=== PATIENT | female | born 1945 | race Caucasian/White ===

== ENCOUNTER 2020-03-03 13:20 | Emergency (ER) | payer MEDICARE, OTHER, SELFPAY ==
[2020-03-03 13:25] VITALS: BP 135/67; PULSE 91; RESP 14; TEMP 36.3; O2SAT 99
--- NOTE | 2020-03-03 13:32 | DI.RAD.S_ITS ---
PROCEDURE: XR LUMBAR SPINE 2-3V INDICATIONS: glf onto butt with lower back pain TECHNIQUE: 3 views of the lumbar spine were acquired. COMPARISON: None. FINDINGS: Bones: 5 [id number] vertebrae are present. There is minimal dextroconvex scoliotic curvature. No focal AP alignment abnormality is seen. No vertebral body compression fractures. No suspicious bony lesions. Partially bridging anterior osteophytes are seen at the L2-L3 level. The disc heights are relatively well preserved. Lower lumbar spine facet arthropathy is seen. Bilateral hip arthroplasty hardware is partially seen. Soft tissues: Overlying bowel gas pattern is normal. No suspicious soft tissue calcifications. Atherosclerotic calcification is noted. IMPRESSION: No acute abnormality can be seen by plain film. If there is point tenderness (or other clinical suspicion for a fracture not seen on these images) then a dedicated CT could be considered for further evaluation, as clinically appropriate. Dictated by: Jcarlos Angel M.D. on 03/03/2020 at 13:09 Approved by: Jcarlos Angel M.D. on 03/03/2020 at 13:10
[2020-03-03 19:25] VITALS: BP 120/68; BP 132/66; PULSE 96; O2SAT 100
[2020-03-03 19:30] VITALS: BP 130/68; PULSE 93; O2SAT 100
--- NOTE | 2020-03-03 19:30 | PC.NURSE ---
Pain in lumbar spine after fall backwards. denies any dizziness before fall, denies any loc. Able to urinate without difficult. denies numbness and tingling to bilateral lower extremities. requiring to use a walker at this time r/t to pain.
--- NOTE | 2020-03-03 19:46 | ED_ITS ---
HPI - Back Pain/Injury <ELIER Sibley - Last Filed: 03/03/20 20:39> General Chief Complaint: Back Pain/Injury Stated Complaint: Fell injured back today Time Seen by Provider: 03/03/20 19:24 Source: patient and family Mode of arrival: Ambulatory Limitations: no limitations History of Present Illness HPI Narrative: The patient is a 74-year-old female nonsmoker with history of hypertension, hyperlipidemia, pre diabetes who presents with a chief complaint of lower back pain after a fall today. She states that she was throwing things into the trash when she lost her balance and fell backward landing on her lower back. She denies hitting her head, any neck pain she denies any numbness or tingling in a new incontinence. She has not taken anything for pain. She has no provider in the area. She states she is ambulating with her walker per usual. Related Data Previous Rx's Medication Instructions Recorded cyclobenzaprine 10 mg PO TID PRN #20 tab 03/03/20 hydrocodone-acetaminophen [Lincoln] 1 tab PO Q4-6H PRN #14 tab 03/03/20 lidocaine 1 patch TOPICAL DAILY PRN #15 ea 03/03/20 Allergies Allergy/AdvReac Type Severity Reaction Status Date / Time dimenhydrinate Allergy Verified 03/03/20 13:26 [From Dramamine] Review of Systems <ELIER Sibley - Last Filed: 03/03/20 20:39> Review of Systems Narrative: GENERAL: Denies chills, fatigue, malaise, fever, sweats. HEENT: Denies sinus pain, ear pain, sore throat, difficulty swallowing, dizziness. RESPIRATORY: Denies dyspnea, cough, wheezing, hemoptysis, sputum. CARDIOVASCULAR: Denies chest pain, palpitations, orthopnea, edema, GASTROINTESTINAL: Denies nausea, vomiting, abdominal pain, diarrhea, constipation, melena. : Denies dysuria, frequency, incontinence, hematuria, urinary retention. MUSCULOSKELETAL: See HPI SKIN: Denies rash, skin lesions, or other NEUROLOGIC: Denies weakness, headache, numbness, change in speech, confusion, seizures, incoordination. PSYCHIATRIC: No concerning psychosocial issues. 12 point review of systems is negative except for those stated above Exam <ELIER Sibley - Last Filed: 03/03/20 20:39> Narrative Exam Narrative: GENERAL: This is a well-nourished, well-developed patient, in mild distress. HEAD: Atraumatic. Normocephalic. No temporal or scalp tenderness. EYES: Pupils equal round and reactive. Extraocular motions intact. No scleral icterus. No injection or drainage. ENT: Nose without bleeding, purulent drainage or septal hematoma. Airway patent. NECK: Trachea midline. No JVD or lymphadenopathy. Supple, nontender, no meningeal signs. CARDIOVASCULAR: Regular rate and rhythm RESPIRATORY: Clear to auscultation. Breath sounds equal bilaterally. No wheezes, rales, or rhonchi. No cough. No increased respiratory effort. No accessory muscle use GASTROINTESTINAL: Abdomen soft, non-tender, nondistended. No hepato- splenomegaly, or palpable masses. No guarding. Active bowel sounds all 4 quadrants EXTREMITIES: No clubbing, cyanosis, or edema. No joint tenderness, effusion, or edema noted. BACK: No pain to palpation of cervical or thoracic spine diffuse tenderness to palpation of lumbar spine as well as bilateral paraspinal muscles of lumbar spine. No palpable deformity or crepitance. No flank tenderness. NEURO: AOx3. Clear speech. No gross cranial nerve deficit. SKIN: No rash or erythema on visible skin. Initial Vital Signs Initial Vital Signs: Vital Signs Temperature 97.3 F L 03/03/20 13:25 Pulse Rate 91 H 03/03/20 13:25 Respiratory Rate 14 03/03/20 13:25 Blood Pressure 135/67 03/03/20 13:25 Pulse Oximetry 99 03/03/20 13:25 <Yonis Owens DO - Last Filed: 03/04/20 07:27> Initial Vital Signs Initial Vital Signs: Vital Signs Temperature 97.3 F L 03/03/20 13:25 Pulse Rate 91 H 03/03/20 13:25 Respiratory Rate 14 03/03/20 13:25 Blood Pressure 135/67 03/03/20 13:25 Pulse Oximetry 99 03/03/20 13:25 Scores <KOREY Sibley- - Last Filed: 03/03/20 20:39> GCS [place] coma scale eye opening: Spontaneous [place] coma scale verbal response: Orientated [place] coma scale motor response: Obey commands Brise[place] coma scale total score: 15 Nexus Score for C-Spine Focal Neurologic deficit present: No Midline spinal tenderness present: No Altered level of conciousness present: No Intoxication present: No Distracting Injury Present: No Nexus Criteria for C-spine: 0 Course <ELIER Sibley - Last Filed: 03/03/20 20:39> Orders Ordered: Discontinued Medications Hydrocodone Bitart/Acetaminophen (Hydrocodone/Acet 5/325 Tablet) 1 tab PO NOW ONE Stop: 03/03/20 19:46 Last Admin: 03/03/20 20:16 Dose: 1 tab Documented by: LISETTE Cyclobenzaprine HCl (Cyclobenzaprine 10 Mg Tablet) 10 mg PO NOW ONE Stop: 03/03/20 19:46 Last Admin: 03/03/20 20:37 Dose: Not Given Documented by: FELIZ Lidocaine (Lidocaine Patch 1 Each Adh..Patch) 1 each TOP NOW ONE Stop: 03/03/20 19:46 Last Admin: 03/03/20 20:16 Dose: 1 each Documented by: LISETTE Vital Signs Vital signs: Vital Signs - 8 hr 03/03/20 13:25 03/03/20 19:25 03/03/20 19:30 Temperature 97.3 F L Pulse Rate 91 H 96 H 93 H Respiratory Rate 14 Blood Pressure 135/67 132/66 130/68 Pulse Oximetry 99 100 100 03/03/20 20:00 03/03/20 20:27 Temperature Pulse Rate 90 92 H Respiratory Rate Blood Pressure 127/63 120/64 Pulse Oximetry 98 100 <Yonis Owens DO - Last Filed: 03/04/20 07:27> Orders Ordered: Discontinued Medications Hydrocodone Bitart/Acetaminophen (Hydrocodone/Acet 5/325 Tablet) 1 tab PO NOW ONE Stop: 03/03/20 19:46 Last Admin: 03/03/20 20:16 Dose: 1 tab Documented by: LISETTE Cyclobenzaprine HCl (Cyclobenzaprine 10 Mg Tablet) 10 mg PO NOW ONE Stop: 03/03/20 19:46 Last Admin: 03/03/20 20:37 Dose: Not Given Documented by: FELIZ Lidocaine (Lidocaine Patch 1 Each Adh..Patch) 1 each TOP NOW ONE Stop: 03/03/20 19:46 Last Admin: 03/03/20 20:16 Dose: 1 each Documented by: RACHELEN Vital Signs Vital signs: Vital Signs - 8 hr 03/03/20 13:25 03/03/20 19:25 03/03/20 19:30 Temperature 97.3 F L Pulse Rate 91 H 96 H 93 H Respiratory Rate 14 Blood Pressure 135/67 132/66 130/68 Pulse Oximetry 99 100 100 03/03/20 20:00 03/03/20 20:27 Temperature Pulse Rate 90 92 H Respiratory Rate Blood Pressure 127/63 120/64 Pulse Oximetry 98 100 [facility] - Back Pain/Injury <KOREY Sibley- - Last Filed: 03/03/20 20:39> Imaging Data Lumbar spine x-ray: Radiologist's Impression: [facility] [place] [id number] ReportSigned Patient: Randy Foley#: [id number]: 6Acct:[id number]/Sex: 74 / FDate of Service: 03/03/20Loc: EDAccession Number: [id number] Procedure: XR lumbar spine 2-3V Ordering Provider: Corin Parks D.O. PROCEDURE: XR LUMBAR SPINE 2-3V INDICATIONS: glf onto butt with lower back pain TECHNIQUE: 3 views of the lumbar spine were acquired. COMPARISON: None. FINDINGS: Bones: 5 [id number] vertebrae are present. There is minimal dextroconvex scoliotic curvature. No focal AP alignment abnormality is seen. No vertebral body compression fractures. No suspicious bony lesions. Partially bridging anterior osteophytes are seen at the L2-L3 level. The disc heights are relatively well preserved. Lower lumbar spine facet arthropathy is seen. Bilateral hip arthroplasty hardware is partially seen. Soft tissues: Overlying bowel gas pattern is normal. No suspicious soft tissue calcifications. Atherosclerotic calcification is noted. IMPRESSION: No acute abnormality can be seen by plain film. If there is point tenderness (or other clinical suspicion for a fracture not seen on these images) then a dedicated CT could be considered for further evaluation, as clinically appropriate. Dictated by: Jcarlos Angel M.D. on 03/03/2020 at 13:09 Approved by: Jcarlos Angel M.D. on 03/03/2020 at 13:10 [facility] Narrative Medical decision making narrative: The patient is a 74-year-old female who presents with a chief complaint of lower back pain after a fall. She states she lost her balance, is not exactly sure why she lost her balance, but does not want me to look into that today. I discussed that we can do further lab work, head CT, EKG etcetera, but this was declined. I discussed this repeatedly, the patient and her daughter repeatedly declined.. They believe that she just lost She states she would only like pain medication to go home. Her x-ray is no acute findings. She denies any red flag symptoms of new incontinence of bowel, incontinence of bladder, or saddle anesthesia. I discussed at length that these are return precautions. She was given lidocaine patch, cyclobenzaprine and Lincoln. Discussed that cyclobenzaprine can be sedating, Lincoln can be constipat ing and sedating. I did discuss at length the patient that we could be missing something that could eventually the lethal, however they request to leave multiple times. I did give her several prescriptions as well as contact information to the [facility] health water resource consultant. Patient daughter no questions or concerns upon discharge and state understanding of return precautions as well as follow-up care. Discharge Plan Departure Patient Disposition: Home Clinical Impression: Lumbar back pain, Fall from ground level Instructions: Exercises to Help Prevent Falls, DI for Low Back Pain, DI for Back Spasm, DI for Back Strain or Sprain Activity Restrictions/Additional Instructions: Thank you for trusting us with your care today. As I discussed, your x-ray shows no acute fracture. This does not rule out a soft tissue injury such as a ligament or tendon injury. It is important that you follow up with primary care provider, especially if worsening or no improvement. There can be fractures that did not show up on initial x-ray. As discussed, you declined further workup regarding her fall today. As discussed, we could be missing something that could eventually be lethal. However we are happy to see you in the emergency department at any point for any acute concerns. As discussed please come back to the ER for acute concerns such as new onset numbness in her groin, incontinence of bowel, incontinence of bladder I sent 3 prescriptions to [facility] this includes cyclobenzaprine which can be sedating, as well as Lincoln which is a narcotic pain medicine I have given you a prescription of a narcotic for pain. Be aware that this can be constipating and sedating. I encouraged taking with a stool softener, pushing fluids and fiber. Do not take and drive, operate heavy machinery, etc. Do not combine it with any other sedating substances such as alcohol. The combination of narcotics and alcohol and/or other sedatives can be lethal. As discussed, please come back to the emergency department for any acute concerns Prescriptions: New hydrocodone-acetaminophen [Lincoln] 5-325 mg tablet 1 tab PO Q4-6H PRN (Reason: pain) Qty: 14 RF: 0 cyclobenzaprine 10 mg tablet 10 mg PO TID PRN (Reason: muscle spasm) Qty: 20 RF: 0 lidocaine 5 % adhesive patch,medicated 1 patch topical DAILY PRN (Reason: pain) Qty: 15 RF: 0 Referrals: [facility] [Outside] <Yonis Owens DO - Last Filed: 03/04/20 07:27> [facility] ED [facility]: I was immediately available in the department for consultation. This documentation has been reviewed and I agree with assessment and plan. Supervised by Yonis Owens DO
[2020-03-03 20:00] VITALS: BP 127/63; PULSE 90; O2SAT 98
[2020-03-03] MEDS: HYDROCODONE/ACET 5/325 TABLET 1 TAB PO (20:16)
[2020-03-03] MEDS: LIDOCAINE PATCH 1 EACH ADH..PATCH TOP (20:16)
[2020-03-03 20:27] VITALS: BP 120/64; PULSE 92; O2SAT 100
== END 2020-03-03 20:37 | disposition home or self-care (01) ==
PROVIDERS: Emergency Provider Nurse Practitioner Family
DX: M54.5 Low back pain (principal); W19.XXXA Unspecified fall, initial encounter
CPT/HCPCS: 72100; 99281; 99283

== ENCOUNTER 2020-05-25 00:02 | Inpatient (IN) | payer MEDICARE, OTHER, SELFPAY ==
[2020-05-25] VITALS (28 sets, daily range): BP systolic 121–163; BP diastolic 57–98; PULSE 87–126; RESP 10–24; TEMP 36.3–36.8; O2SAT 97–100; BMI 28.1; BMI 23.3
--- NOTE | 2020-05-25 00:14 | ED.GENADULT ---
HPI - General Adult General Chief complaint: Chest Pain Stated complaint: chest pain/vomiting/pain down left arm Time Seen by Provider: 05/25/20 00:13 History of Present Illness HPI narrative: 74-year-old woman with a history of [place] without stent placement in 2019 developed increasing chest pain around 430 this afternoon. Her son gave her some nitroglycerin which seem to help significantly. Over the course of the evening the chest pain has increased and includes her left chest radiating through to her back increasing diaphoresis shortness of breath and anxiety. She denies fevers, cough, orthopnea, abdominal pain, lower extremity edema Related Data Home Medications Medication Instructions Recorded Confirmed aspirin 81 mg PO BID 05/25/20 05/25/20 atorvastatin 40 mg PO BEDTIME 05/25/20 05/25/20 cholecalciferol (vitamin D3) 25 mcg PO BID 05/25/20 05/25/20 clopidogrel 75 mg PO DAILY 05/25/20 05/25/20 colestipol 1 g PO BID 05/25/20 05/25/20 digoxin 125 mcg PO DAILY 05/25/20 05/25/20 docusate sodium 100 mg PO DAILY 05/25/20 05/25/20 escitalopram oxalate 10 mg PO DAILY 05/25/20 05/25/20 lisinopril 5 mg PO BID 05/25/20 05/25/20 metformin 500 mg PO BID 05/25/20 05/25/20 metoprolol tartrate 100 mg PO BID 05/25/20 05/25/20 potassium chloride 10 meq PO DAILY 05/25/20 05/25/20 spironolactone 12.5 mg PO DAILY 05/25/20 05/25/20 torsemide 20 mg PO BID 05/25/20 05/25/20 Previous Rx's Medication Instructions Recorded ciprofloxacin HCl 250 mg PO BID #6 tab 05/25/20 pantoprazole 40 mg PO DAILY #30 tab 05/25/20 Allergies Allergy/AdvReac Type Severity Reaction Status Date / Time dimenhydrinate Allergy Verified 03/03/20 13:26 [From Dramamine] Review of Systems Review of Systems ROS Unobtainable: All systems reviewed & are unremarkable except as noted in HPI and below Patient History Medical History (Updated 05/25/20 @ 17:36 by Dereje Martinez MD) CHF (congestive heart failure) Diabetes mellitus type 2 in obese Hyperlipidemia Hypertension Myocardial infarction Plaque psoriasis Surgical History (Updated 05/25/20 @ 05:14 by ELIER Hernandez) History of appendectomy History of bilateral hip replacements History of cholecystectomy History of left knee surgery History of surgery on right wrist Family History (Updated 05/25/20 @ 05:59 by ELIER Hernandez) Mother Congestive heart failure Brother Congestive heart failure Social History household members: family Smoking Status: Never smoker alcohol intake: never Exam Narrative Exam Narrative: General: Pale, diaphoretic in obvious pain. Son supplements most for history as she is unable to participate secondary to her pain. Well-nourished well-developed HEENT: Moist mucous membranes, normal sclera with reactive pupils, Neck: No JVD, supple Respiratory: Lungs are clear to auscultation, no wheezing no rales no rhonchi. Full and symmetrical air movement Cardiac: Tachycardic but Regular rate and rhythm no murmurs no bruits Abdomen: Soft, nontender, good bowel tones, no flank pain Skin: Pale, diaphoretic, no rashes Neurologic: Grossly neurologically intact with no obvious asymmetries or abnormalities Extremities: No trauma, well perfused Psych: Anxious, in pain Initial Vital Signs Initial Vital Signs: Vital Signs Temperature 97.4 F L 05/25/20 00:14 Pulse Rate 125 H 05/25/20 00:14 Respiratory Rate 17 05/25/20 00:14 Blood Pressure 139/98 H 05/25/20 00:14 Pulse Oximetry 100 05/25/20 00:14 Course Orders Ordered: Discontinued Medications Acetaminophen (Acetaminophen 325 Mg Tablet) 650 mg PO Q4HR PRN PRN Reason: Fever/Mild Pain (1-3) Last Admin: 05/25/20 13:40 Dose: 650 mg Documented by: RYANFARAna Luisa Aspirin (Aspirin 81 Mg Chew Tab) 324 mg PO NOW ONE Stop: 05/25/20 00:15 Last Admin: 05/25/20 00:24 Dose: 324 mg Documented by: LISETTE Aspirin (Aspirin 81 Mg Chew Tab) 81 mg PO BID [facility] Last Admin: 05/25/20 09:21 Dose: 81 mg Documented by: RYANFARL Atorvastatin Calcium (Atorvastatin 20 Mg Tablet) 40 mg PO BEDTIME [facility] Bisacodyl (Bisacodyl 5 Mg Tablet) 10 mg PO DAILY PRN PRN Reason: Constipation Clopidogrel Bisulfate (Clopidogrel 75 Mg Tablet) 75 mg PO DAILY [facility] [place] Last Admin: 05/25/20 09:21 Dose: 75 mg Documented by: CMCFARL Colestipol HCl (Colestipol 1 Gm Tablet) 1 gm PO BID [facility] [place] Last Admin: 05/25/20 09:22 Dose: 1 gm Documented by: CMCFARL Digoxin (Digoxin 0.125 Mg Tablet) 0.125 mg PO DAILY [facility] [place] Last Admin: 05/25/20 09:20 Dose: 0.125 mg Documented by: CMCFARL Docusate Sodium (Docusate 100 Mg Capsule) 100 mg PO BID PRN PRN Reason: Constipation Docusate Sodium (Docusate 100 Mg Capsule) 100 mg PO DAILY [facility] [place] Last Admin: 05/25/20 09:21 Dose: 100 mg Documented by: CMCFARL Sodium Chloride (Normal Saline 0.9%) 1,000 mls @ 1,000 mls/hr IV BOLUS ONE Stop: 05/25/20 01:13 Last Infusion: 05/25/20 02:14 Dose: 0 mls/hr Documented by: Admin: 05/25/20 00:24 Dose: 1,000 mls/hr Documented by: LISETTE Ceftriaxone Sodium/Dextrose (Rocephin) 2 gm in 50 mls @ 100 mls/hr IV NOW ONE Stop: 05/25/20 03:42 Last Infusion: 05/25/20 04:19 Dose: 0 mls/hr Documented by: Admin: 05/25/20 03:34 Dose: 100 mls/hr Documented by: KAYKAYRASS Sodium Chloride (Normal Saline 0.9%) 1,000 mls @ 1,000 mls/hr IV BOLUS ONE Stop: 05/25/20 04:12 Last Infusion: 05/25/20 04:20 Dose: 1,000 mls/hr Documented by: Admin: 05/25/20 03:34 Dose: 1,000 mls/hr Documented by: ESJUANRASS Sodium Chloride (Normal Saline 0.9%) 1,000 mls @ 100 mls/hr IV CONT [facility] [place] Last Admin: 05/25/20 04:30 Dose: Not Given Documented by: LOU Ceftriaxone Sodium/Dextrose (Rocephin) 1 gm in 50 mls @ 100 mls/hr IV Q24H [facility] [place] Last Infusion: 05/25/20 13:09 Dose: 0 mls/hr Documented by: Admin: 05/25/20 09:22 Dose: 100 mls/hr Documented by: JANNETH Metoprolol Tartrate (Metoprolol Tartrate 5 Mg/5 Ml Inj) 5 mg IV Q5M [facility] Stop: 05/25/20 00:41 Last Admin: 05/25/20 02:07 Dose: Not Given Documented by: Admin: 05/25/20 02:06 Dose: Not Given Documented by: Admin: 05/25/20 00:43 Dose: 5 mg Documented by: KAMI Metoprolol Tartrate (Metoprolol Ir 50 Mg Tablet) 100 mg PO BID [facility] [place] Last Admin: 05/25/20 09:21 Dose: 100 mg Documented by: JANNETH Morphine Sulfate (Morphine 2 Mg/Ml Inj) 2 mg IV Q5MIN PRN PRN Reason: Chest Pain Morphine Sulfate (Morphine 2 Mg/Ml Inj) 2 mg IV Q5MIN PRN PRN Reason: Chest Pain Naloxone HCl (Naloxone 0.4 Mg/Ml Vial) 0.2 mg IV Q2MIN PRN PRN Reason: Opiate Reversal Nitroglycerin (Nitroglycerin 0.4 Mg Sl Tab) 0.4 mg SL [id number] PRN PRN Reason: Chest Pain Last Admin: 05/25/20 00:33 Dose: 0.4 mg Documented by: Admin: 05/25/20 00:25 Dose: 0.4 mg Documented by: LISETTE Nitroglycerin (Nitroglycerin 0.4 Mg Sl Tab) 0.4 mg SL [id number] PRN PRN Reason: Chest Pain Ondansetron HCl (Ondansetron 4 Mg/2 Ml Inj) 4 mg IV NOW ONE Stop: 05/25/20 00:15 Last Admin: 05/25/20 00:24 Dose: 4 mg Documented by: LISETTE Ondansetron HCl (Ondansetron 4 Mg Odt) 4 mg PO Q8HR PRN PRN Reason: Nausea And Vomiting Spironolactone (Spironolactone 25 Mg Tablet) 12.5 mg PO DAILY [facility] Last Admin: 05/25/20 09:21 Dose: 12.5 mg Documented by: JANNETH Torsemide (Torsemide 10 Mg Tablet) 20 mg PO BID [facility] [place] Last Admin: 05/25/20 09:22 Dose: 20 mg Documented by: JANNETH Vital Signs Vital signs: Vital Signs - 8 hr 05/25/20 00:14 05/25/20 00:25 05/25/20 00:33 Temperature 97.4 F L Pulse Rate 125 H 106 H 126 H Respiratory Rate 17 Blood Pressure 139/98 H 139/90 142/72 H Pulse Oximetry 100 05/25/20 00:58 05/25/20 01:00 05/25/20 01:30 Temperature Pulse Rate 87 89 94 H Respiratory Rate 15 18 18 Blood Pressure 143/71 H Pulse Oximetry 99 97 99 05/25/20 02:00 05/25/20 02:30 05/25/20 03:00 Temperature Pulse Rate 91 H 95 H 103 H Respiratory Rate 19 19 20 Blood Pressure Pulse Oximetry 100 100 100 Medical Decision Making Medical Records Medical records reviewed: Yes I reviewed the patient's medical records. Lab Data Lab results reviewed: Yes I reviewed the patient's lab results. Result diagrams: 05/25/20 05:46 05/25/20 05:46 Labs: Lab Results 05/25/20 05/25/20 05/25/20 Range/Units 00:25 00:25 00:25 WBC 6.8 (4.5-11.0) X10^3/uL RBC 4.55 (4.0-5.2) X10^6/uL Hgb 11.5 L (12.0-16.0) g/dL Hct 36.1 (36-46) % MCV 79.5 L (80-100) fL MCH 25.2 L (26-34) PG MCHC 31.7 (30-36) % RDW 18.3 H (11.6-14.8) % Plt Count 296 (150-400) X10^3/uL Neut % (Auto) 66.1 (50-75) % Lymph % (Auto) 20.5 L (25-40) % [place] % (Auto) 10.5 (3-14) % Eos % (Auto) 2.2 (2-4) % Baso % (Auto) 0.7 (0-2) % Neut # (Auto) 4500 (7271-3080) /uL Lymph # (Auto) 1400 (1021-0052) /uL [place] # (Auto) 700 (0-900) /uL Eos # (Auto) 200 (0-450) /uL Baso # (Auto) 0 (0-100) /uL Sodium 135 L (137-145) mmol/L Potassium 5.2 H (3.4-5.1) mmol/L Chloride 99 (98-107) mmol/L Carbon Dioxide 30 (22-32) mmol/L BUN 30 H (7-17) mg/dL Creatinine 1.55 H (0.52-1.04) mg/dL Estimated GFR 32.7 L (>60) mL/min BUN/Creatinine Ratio 19.4 (6-22) Glucose 218 H (80-110) mg/dL Lactate 2.8 H (0.7-2.1) mmol/L Calcium 9.8 (8.4-10.2) mg/dL Phosphorus (2.8-4.1) mg/dL Magnesium 1.9 (1.6-2.3) mg/dL Total Bilirubin 0.2 (0.2-1.3) mg/dL AST 23 (14-36) IU/L ALT 14 (<35) IU/L Alkaline Phosphatase 175 H (38-126) U/L Troponin I 0.012 (0.01-0.034) ng/mL Total Protein 7.4 (6.3-8.2) g/dL Albumin 4.0 (3.5-5.0) g/dL Globulin 3.4 (1.7-4.1) g/dL Albumin/Globulin Ratio 1.2 (1.0-2.8) Lipase 649 H (23-300) U/L Procalcitonin (<0.5) ng/mL Urine RBC (0-5/HPF) Urine WBC (0-5/HPF) Ur Squamous Epith Cells (0-5/HPF) Urine Bacteria (None) Ur Culture Indicated? SARS-CoV-2 (PCR) (Negative) 05/25/20 05/25/20 05/25/20 Range/Units 00:25 00:25 02:20 WBC (4.5-11.0) X10^3/uL RBC (4.0-5.2) X10^6/uL Hgb (12.0-16.0) g/dL Hct (36-46) % MCV (80-100) fL MCH (26-34) PG MCHC (30-36) % RDW (11.6-14.8) % Plt Count (150-400) X10^3/uL Neut % (Auto) (50-75) % Lymph % (Auto) (25-40) % [place] % (Auto) (3-14) % Eos % (Auto) (2-4) % Baso % (Auto) (0-2) % Neut # (Auto) (6841-5418) /uL Lymph # (Auto) (4919-7325) /uL [place] # (Auto) (0-900) /uL Eos # (Auto) (0-450) /uL Baso # (Auto) (0-100) /uL Sodium (137-145) mmol/L Potassium (3.4-5.1) mmol/L Chloride (98-107) mmol/L Carbon Dioxide (22-32) mmol/L BUN (7-17) mg/dL Creatinine (0.52-1.04) mg/dL Estimated GFR (>60) mL/min BUN/Creatinine Ratio (6-22) Glucose (80-110) mg/dL Lactate (0.7-2.1) mmol/L Calcium (8.4-10.2) mg/dL Phosphorus 3.7 (2.8-4.1) mg/dL Magnesium Cancelled (1.6-2.3) mg/dL Total Bilirubin (0.2-1.3) mg/dL AST (14-36) IU/L ALT (<35) IU/L Alkaline Phosphatase (38-126) U/L Troponin I (0.01-0.034) ng/mL Total Protein (6.3-8.2) g/dL Albumin (3.5-5.0) g/dL Globulin (1.7-4.1) g/dL Albumin/Globulin Ratio (1.0-2.8) Lipase (23-300) U/L Procalcitonin < 0.05 (<0.5) ng/mL Urine RBC None seen (0-5/HPF) Urine WBC 10-30/hpf H (0-5/HPF) Ur Squamous Epith Cells 0-1 /hpf (0-5/HPF) Urine Bacteria Many (>30) H (None) Ur Culture Indicated? Specimen cultured SARS-CoV-2 (PCR) (Negative) 05/25/20 05/25/20 05/25/20 Range/Units 02:32 02:32 03:20 WBC (4.5-11.0) X10^3/uL RBC (4.0-5.2) X10^6/uL Hgb (12.0-16.0) g/dL Hct (36-46) % MCV (80-100) fL MCH (26-34) PG MCHC (30-36) % RDW (11.6-14.8) % Plt Count (150-400) X10^3/uL Neut % (Auto) (50-75) % Lymph % (Auto) (25-40) % [place] % (Auto) (3-14) % Eos % (Auto) (2-4) % Baso % (Auto) (0-2) % Neut # (Auto) (1893-6610) /uL Lymph # (Auto) (3689-8330) /uL [place] # (Auto) (0-900) /uL Eos # (Auto) (0-450) /uL Baso # (Auto) (0-100) /uL Sodium (137-145) mmol/L Potassium (3.4-5.1) mmol/L Chloride (98-107) mmol/L Carbon Dioxide (22-32) mmol/L BUN (7-17) mg/dL Creatinine (0.52-1.04) mg/dL Estimated GFR (>60) mL/min BUN/Creatinine Ratio (6-22) Glucose (80-110) mg/dL Lactate 2.2 H (0.7-2.1) mmol/L Calcium (8.4-10.2) mg/dL Phosphorus (2.8-4.1) mg/dL Magnesium (1.6-2.3) mg/dL Total Bilirubin (0.2-1.3) mg/dL AST (14-36) IU/L ALT (<35) IU/L Alkaline Phosphatase (38-126) U/L Troponin I 0.020 (0.01-0.034) ng/mL Total Protein (6.3-8.2) g/dL Albumin (3.5-5.0) g/dL Globulin (1.7-4.1) g/dL Albumin/Globulin Ratio (1.0-2.8) Lipase (23-300) U/L Procalcitonin (<0.5) ng/mL Urine RBC (0-5/HPF) Urine WBC (0-5/HPF) Ur Squamous Epith Cells (0-5/HPF) Urine Bacteria (None) Ur Culture Indicated? SARS-CoV-2 (PCR) Negative (Negative) Urine Dip Bedside Urine Glucose Negative Bedside Urine Bilirubin - Negative Bedside Urine Ketone - Negative Urine Specific [place] 1.015 Bedside Urine Occult Blood +/- Bedside Urine pH 8.0 Bedside Urine Protein - Negative Bedside Urine Urobilinogen - Negative Bedside Urine Nitrite + Positive Bedside Urine Leukocytes +++ 500 Esterase Point of care testing: Urine Dip Bedside Urine Glucose Negative Bedside Urine Bilirubin - Negative Bedside Urine Ketone - Negative Urine Specific [place] 1.015 Bedside Urine Occult Blood +/- Bedside Urine pH 8.0 Bedside Urine Protein - Negative Bedside Urine Urobilinogen - Negative Bedside Urine Nitrite + Positive Bedside Urine Leukocytes +++ 500 Esterase Imaging Data Chest x-ray: Radiologist's Impression: No acute finding Lukas Guerra MD ECG Data Attestation: I personally reviewed and interpreted this ECG as follows: Interpretation: Sinus rhythm at 123 Poor baseline due to pain in underlying tremor Left axis deviation Lateral mild ST depression without any ST elevation Repeat 1:41 am pain free Sinus rhythm at 91 Slight left axis deviation Normal intervals Lateral ST- T wave changes similar to presentation without any progression MDM Narrative Medical decision making narrative: Medical history in reports of myocardial infarction in 2019 not currently on medications and reportedly no interventions at that time. Increasing left-sided chest pain over the course of today. Her son notes that she has also been complaining of increasing reflux type symptoms today. She has partially responded to nitro and tachycardia has responded nicely to single dose of IV metoprolol. As labs returning white count is unremarkable. I mild hyperkalemia at 5.2 slightly elevated creatinine without comparison elevated blood glucose at 218 (no history of diabetes) Lactic acid at 2.8 without any obvious infectious source. Lipase is elevated at 649. Developing pancreatitis could certainly explain the pain that is been worsening over the course of the day. Patient is re-examined. Chest pain has resolved. No specific abdominal pain. However EKG and troponin do not suggest an acute coronary syndrome at this time. Chest x-ray is equally unremarkable. CT scan of the abdomen is ordered. 1:42am CT does not suggest acute pancreatitis. Will plan on repeating troponin at 2hours and EKG now that her pain is better controlled and the baseline tremor is minimize 315am patient is re-examined. Chest pain has resolved and she has no specific abdominal pain however she continues to be tachycardic, her lactate was elevated at 2.8 and is only come down to 2.2. I still do not have a full explanation for the elevated lipase. There are also a myriad of other small abnormalities that with any single issue would not be particularly troublesome, but the fact that there are multiple, including mild hyperkalemia, mild elevated creatinine, mildly elevated glucose without a diagnosis of diabetes. At this time I do not have a consolidating diagnosis and my recommendation will be to admit her to the hospital for further observation. She also has what appears to be a bladder infection based on microscopic urinalysis. She will be given 2 g of IV ceftriaxone for community-acquired urinary tract infection and another L of fluid given the still slightly elevated lactic acid. Findings are reviewed with patient and she is amenable to staying in the hospital at this time. Care is reviewed with Ms Tavera, hospitalist LEENA and she agrees to accept admission. Discharge Plan Departure Patient Disposition: Admitted as Observation Clinical Impression: Acute UTI, Acute renal insufficiency, Acute hyperkalemia Chest pain Qualifiers: Chest pain type: unspecified Qualified Code(s): R07.9 - Chest pain, unspecified Acute pancreatitis Qualifiers: Pancreatitis type: unspecified pancreatitis type Acute pancreatitis complication: unspecified Qualified Code(s): K85.90 - Acute pancreatitis without necrosis or infection, unspecified Admit Date/Time: 05/25/20 03:39 Admit Provider: Marleen Tavera
--- NOTE | 2020-05-25 00:15 | DI.RAD.S_ITS ---
PROCEDURE: XR CHEST 1V INDICATIONS: chest pain TECHNIQUE: One view of the chest was acquired. COMPARISON: None. FINDINGS: Surgical changes and devices: None. Lungs and pleura: Lungs are clear. No pleural effusions or pneumothorax. Mediastinum: Mediastinal contours appear normal. Heart size is normal. Mild aortic atherosclerotic calcifications are present. Bones and chest wall: No suspicious bony lesions. Overlying soft tissues appear unremarkable. IMPRESSION: No acute cardiopulmonary abnormality. Dictated by: Taiwo Bustillos M.D. on 05/25/2020 at 8:20 Approved by: Taiwo Bustillos M.D. on 05/25/2020 at 8:20
[2020-05-25] MEDS: SODIUM CHLORIDE 0.9% 1,000 ML 1000 ML IV ×2 (00:24→03:34)
[2020-05-25] MEDS: ASPIRIN 81 MG CHEW TAB 324 MG PO (00:24)
[2020-05-25] MEDS: ONDANSETRON 4 MG/2 ML INJ IV (00:24)
[2020-05-25] MEDS: NITROGLYCERIN 0.4 MG SL TAB SL ×2 (00:25→00:33)
[2020-05-25 00:37] LABS: Add Manual Diff / Slide Review NO; Basophils Absolute Auto 0 /uL (0-100); Basophils Percent Auto 0.7 % (0-2); Eosinophils Absolute Auto 200 /uL (0-450); Eosinophils Percent Auto 2.2 % (2-4); Hematocrit 36.1 % (36-46); Hemoglobin 11.5 g/dL (12.0-16.0); Lymphocytes Absolute Auto 1400 /uL (1100-4500); Lymphocytes Percent Auto 20.5 % (25-40); Mean Corpuscular HGB Conc 31.7 % (30-36); Mean Corpuscular Hemoglobin 25.2 PG (26-34); Mean Corpuscular Volume 79.5 fL (80-100); Monocytes Absolute Auto 700 /uL (0-900); Monocytes Percent Auto 10.5 % (3-14); Neutrophils Absolute Auto 4500 /uL (1500-7000); Neutrophils Percent Auto 66.1 % (50-75); Platelet Count 296 X10^3/uL (150-400); Red Blood Cell Count 4.55 X10^6/uL (4.0-5.2); Red Cell Distribution Width 18.3 % (11.6-14.8); White Blood Cell Count 6.8 X10^3/uL (4.5-11.0)
[2020-05-25 00:43] LABS: Alanine Aminotransferase 14 IU/L (<35); Albumin Globulin Ratio 1.2 (1.0-2.8); Alkaline Phosphatase 175 U/L (38-126); Aspartate Aminotransferase 23 IU/L (14-36); BUN Creatinine Ratio 19.4 (6-22); Bilirubin Total 0.2 mg/dL (0.2-1.3); Blood Urea Nitrogen 30 mg/dL (7-17); Calcium 9.8 mg/dL (8.4-10.2); Carbon Dioxide 30 mmol/L (22-32); Chloride 99 mmol/L (98-107); Estimated Glomerular Filt Rate 32.7 mL/min (>60); Globulin 3.4 g/dL (1.7-4.1); Glucose 218 mg/dL (80-110); HEMOLYSIS < 15 (0-50); Lipase 649 U/L (23-300); Magnesium 1.9 mg/dL (1.6-2.3); Sodium 135 mmol/L (137-145); Total Protein 7.4 g/dL (6.3-8.2)
[2020-05-25] MEDS: METOPROLOL TARTRATE 5 MG/5 ML INJ IV (00:43)
[2020-05-25 00:45] LABS: Potassium 5.2 mmol/L (3.4-5.1)
--- NOTE | 2020-05-25 00:50 | DI.CT.S_ITS ---
PROCEDURE: CT ABDOMEN PELVIS W CON INDICATIONS: chest pain, possible pancreatitis TECHNIQUE: After the administration of intravenous contrast, 5 mm thick sections acquired from the diaphragm to the symphysis. 5 mm coronal and sagittal reformats were acquired. For radiation dose reduction, the following was used: automated exposure control, adjustment of mA and/or kV according to patient size. COMPARISON: None. FINDINGS: Image quality: Excellent. ABDOMEN: Lung bases: Lung bases are clear. Heart size is normal. Solid organs: Liver is normal in size and enhancement. Gallbladder is surgically absent. Biliary system is non dilated. Pancreas enhances normally. Spleen is normal in size and enhancement. No adrenal nodules. Kidneys demonstrate normal enhancement with persistent lobulations and mild diffuse cortical thinning, without hydronephrosis. Peritoneum and bowel: Bowel loops demonstrate normal wall thickness and caliber. No free fluid or air. Nodes and vessels: No retroperitoneal or mesenteric adenopathy by size criteria. Aorta and inferior vena cava are normal in size. Moderate aortic atherosclerotic calcifications are present. Miscellaneous: No ventral hernias. PELVIS: Genitourinary: Bladder wall thickness is normal. The uterus is not visualized, likely secondary to a prior hysterectomy. Miscellaneous: No inguinal hernias or adenopathy. Bones: There is a mild superior endplate compression fracture involving the L1 vertebra of indeterminate age. Generalized osteopenia is seen. Mild degenerative changes are seen in the spine. Bilateral hip arthroplasties are noted with metallic artifact that mildly obscures adjacent structures. IMPRESSION: 1. No acute intra-abdominal abnormality is identified. No signs of pancreatitis. 2. Mild compression deformity of the L1 vertebra is of indeterminate age. Recommend correlation with point tenderness. There is no significant discrepancy when compared to the overnight Teleradiology report. Dictated by: Taiwo Bustillos M.D. on 05/25/2020 at 8:20 Approved by: Taiwo Bustillos M.D. on 05/25/2020 at 8:28
[2020-05-25 00:54] LABS: Troponin I 0.012 ng/mL (0.01-0.034)
[2020-05-25 01:01] LABS: Lactate (Lactic Acid) 2.8 mmol/L (0.7-2.1)
[2020-05-25 01:48] LABS: Procalcitonin < 0.05 ng/mL (<0.5)
[2020-05-25 02:37] LABS: RBC Urine None Seen (0-5/HPF)
[2020-05-25 02:46] LABS: Bacteria Urine Many (>30); Culture Indicated Urine Specimen Cultured; Squamous Epithelial Cell Urine 0-1 /HPF (0-5/HPF); WBC Urine 10-30/HPF (0-5/HPF)
[2020-05-25 02:53] LABS: Reflexed Lactate in 2 Hours Y
[2020-05-25 03:02] LABS: Lactate 2HR (Lactic Acid Rflx) 2.2 mmol/L (0.7-2.1)
[2020-05-25] MEDS: CEFTRIAXONE 2 GM/50 ML FROZ.PIGGY IV (03:34)
[2020-05-25 03:42] LABS: COVID19 -Nasal RAPID Negative (Negative)
--- NOTE | 2020-05-25 04:00 | P.HP_ITS ---
History of Present Illness History of Present Illness Date Patient Seen: 05/25/20 Time Patient Seen: 04:01 Chief complaint: chest pain/vomiting/pain down left arm Narrative: The patient a 74-year-old Female presented to the ER with a history of CHF, hypertension, GERD, hyperlipidemia, diabetes type 2, and ID without stent placement in 2019 developed increasing chest pain around 430 this afternoon. Her son gave her some nitroglycerin which seem to help signific antly. Over the course of the evening the chest pain has increased and includes her left chest radiating through to her back increasing diaphoresis shortness of breath and anxiety. She denies fevers, cough, orthopnea, abdominal pain, lower extremity edema. Upon admit to the floor patient is confused slightly and unable to assist with history of today's events, ROS, or medical history. She did admit to vomiting 3-5 times per week for the past 2 weeks. And through physical exam was able to elicit some medical history as stated above. At this time she denies chest pain shortness of breath rapid or irregular heart rate pain or discomfort body aches fever or chills. Patient presenting vitals temp 97.4?, BP 143/71, HR 103, RR 20, O2 saturation 100%. Labs hemoglobin 11.5, sodium 135, potassium 5.2, BUN 30, creatinine 1.55, blood sugar 218, alk-phos 175, EGFR 32.7, lactate 2.2, troponin 0.0220, repeat troponin 0.012, lipase 649, procalcitonin negative, heart score of 5, creatinine clearance of 4 mL/min, abdomen CT and negative, and chest x-ray negative. Patient History Medical History (Updated 05/25/20 @ 05:14 by KOREY Hernandez-LUDY) CHF (congestive heart failure) Diabetes mellitus type 2 in obese Hyperlipidemia Hypertension Myocardial infarction Plaque psoriasis Surgical History (Updated 05/25/20 @ 05:14 by KOREY Hernandez-LUDY) History of appendectomy History of bilateral hip replacements History of cholecystectomy History of left knee surgery History of surgery on right wrist Family & Social History Family History (Updated 05/25/20 @ 05:59 by ELIER Hernandez) Mother Congestive heart failure Brother Congestive heart failure Social History: Patient reports that she lives with her son-in-law and daughter. Safety & Behavioral: Feels Safe in Current Yes Environment Tobacco & Substance use: Smoking Status Never smoker-no alcohol intake Substance Use Type does not use Meds Home Medications and Allergies Home Medications Medication Instructions Recorded Confirmed Type aspirin 81 mg PO BID 05/25/20 05/25/20 History atorvastatin 40 mg PO BEDTIME 05/25/20 05/25/20 History cholecalciferol (vitamin D3) 25 mcg PO BID 05/25/20 05/25/20 History clopidogrel 75 mg PO DAILY 05/25/20 05/25/20 History colestipol 1 g PO BID 05/25/20 05/25/20 History digoxin 125 mcg PO DAILY 05/25/20 05/25/20 History docusate sodium 100 mg PO DAILY 05/25/20 05/25/20 History escitalopram oxalate 10 mg PO DAILY 05/25/20 05/25/20 History lisinopril 5 mg PO BID 05/25/20 05/25/20 History metformin 500 mg PO BID 05/25/20 05/25/20 History metoprolol tartrate 100 mg PO BID 05/25/20 05/25/20 History potassium chloride 10 meq PO DAILY 05/25/20 05/25/20 History spironolactone 12.5 mg PO DAILY 05/25/20 05/25/20 History torsemide 20 mg PO BID 05/25/20 05/25/20 History Allergies Allergy/AdvReac Type Severity Reaction Status Date / Time dimenhydrinate Allergy Verified 03/03/20 13:26 [From Dramamine] Review of Systems Review of Systems Narrative: At the time of admit patient denied any chest pain shortness of breath acid reflux symptoms nausea vomiting diarrhea pain with urination or stooling, changes in vision weakness to 1 side of the other recent illness infection or trauma, skin wounds abnormal bruising bleeding, fever body aches or chills. ROS: Yes unobtainable due to mental status (Patient is slightly confused and unable to recall S/S) Eyes Eyes: Reports system reviewed and no additional complaints, except as documented ENT Ears, Nose, Mouth, and Throat: Yes system reviewed and no additional complaints, except as documented Cardiovascular Cardiovascular: Reports system reviewed and no additional complaints, except as documented Respiratory Respiratory: Reports system reviewed and no additional complaints, except as documented Gastrointestinal Gastrointestinal: Reports system reviewed and no additional complaints, except as documented Genitourinary Genitourinary: Reports system reviewed and no additional complaints, except as documented Musculoskeletal Musculoskeletal: Reports system reviewed and no additional complaints, except as documented Integumentary/Breasts Skin/Breast: Reports system reviewed and no additional complaints, except as documented Neurologic Neurologic: Reports system reviewed and no additional complaints, except as documented Psychiatric Psychiatric: Reports system reviewed and no additional complaints, except as documented Endocrine Endocrine: Reports system reviewed and no additional complaints, except as documented Hematologic/Lymphatic Hematologic/Lymphatic: Reports system reviewed and no additional complaints, except as documented Allergic/Immunologic Allergic/Immunologic: Reports system reviewed and no additional complaints, e xcept as documented Exam Vital Signs (past 8 hours): - 05/25/20 00:14 05/25/20 00:25 05/25/20 00:33 Temperature 97.4 F L Pulse Rate 125 H 106 H 126 H Respiratory Rate 17 Blood Pressure 139/98 H 139/90 142/72 H Pulse Oximetry 100 05/25/20 00:58 05/25/20 01:00 05/25/20 01:30 Temperature Pulse Rate 87 89 94 H Respiratory Rate 15 18 18 Blood Pressure 143/71 H Pulse Oximetry 99 97 99 05/25/20 02:00 05/25/20 02:30 05/25/20 03:00 Temperature Pulse Rate 91 H 95 H 103 H Respiratory Rate 19 19 20 Blood Pressure Pulse Oximetry 100 100 100 Oxygen Delivery Method Room Air Narrative Exam Narrative: General: Patient is a well-developed, well-nourished delightful female who is slightly confused but is aware that it is May and her birthday is in 1 week, in no distress at this time. HEENT: Normocephalic, atraumatic, extraocular muscles intact, oral pharynx is clear and mucous membranes are moist. Neck is supple and symmetric, trachea is midline, no adenopathy, no thyroid enlargement, nontender, no masses palpated. Negative for JVD Chest: Normal AP diameter and contour without kyphoscoliosis, no nasal flaring, retractions, or tachypneic labored Lungs: Auscultation of all lung [place] are clear without adventitious sounds, wheezes, rhonchi, or rales. Cardio: Tachycardic but S1 & S2 with regular rate and rhythm without murmur, rubs, or gallops, no carotid bruit, no cardiac pulsations present. Abdomen: Soft nontender, negative for organomegaly, or masses. Bowel sounds are present in all 4 quadrants without guarding or rebound, no CVA tenderness. Musculoskeletal: Muscle strength and tone are equal within normal limits, no deformity, crepitus, effusions, cyanosis, clubbing or edema present. Full range of motion intact radial and pedal pulses are normal. Skin: Patient has a mild plaque psoriasis grossly dispersed rash to bilateral forearms, patient has a fairly large and unusual abdominal surgical scar, left knee vertical surgical scar, a small vertical surgical scar over the right medial malleolus. Neuro: Alert and orientated x3, but unable to recall her own symptoms medical history or medications, and even struggles to recall family members names from time to time, strength is +5/5 in all extremities, sensation to touch intact, no gross deficits noted of cranial nerves. Psych: Patient has a well-kept appearance, appropriate affect, mental status attitude thought context and judgment seems slightly inappropriate at this time. Objective Labs Result Diagrams: 05/25/20 00:25 05/25/20 00:25 Labs: Laboratory Results - last 24 hr 05/25/20 05/25/20 05/25/20 00:25 00:25 00:25 WBC 6.8 RBC 4.55 Hgb 11.5 L Hct 36.1 MCV 79.5 L MCH 25.2 L MCHC 31.7 RDW 18.3 H Plt Count 296 Neut % (Auto) 66.1 Lymph % (Auto) 20.5 L [place] % (Auto) 10.5 Eos % (Auto) 2.2 Baso % (Auto) 0.7 Neut # (Auto) 4500 Lymph # (Auto) 1400 [place] # (Auto) 700 Eos # (Auto) 200 Baso # (Auto) 0 Sodium 135 L Potassium 5.2 H Chloride 99 Carbon Dioxide 30 BUN 30 H Creatinine 1.55 H Estimated GFR 32.7 L BUN/Creatinine Ratio 19.4 Glucose 218 H Lactate 2.8 H Calcium 9.8 Magnesium 1.9 Total Bilirubin 0.2 AST 23 ALT 14 Alkaline Phosphatase 175 H Troponin I 0.012 Total Protein 7.4 Albumin 4.0 Globulin 3.4 Albumin/Globulin Ratio 1.2 Lipase 649 H Procalcitonin Urine RBC Urine WBC Ur Squamous Epith Cells Urine Bacteria Ur Culture Indicated? SARS-CoV-2 (PCR) 05/25/20 05/25/20 05/25/20 00:25 02:20 02:32 WBC RBC Hgb Hct MCV MCH MCHC RDW Plt Count Neut % (Auto) Lymph % (Auto) [place] % (Auto) Eos % (Auto) Baso % (Auto) Neut # (Auto) Lymph # (Auto) [place] # (Auto) Eos # (Auto) Baso # (Auto) Sodium Potassium Chloride Carbon Dioxide BUN Creatinine Estimated GFR BUN/Creatinine Ratio Glucose Lactate Calcium Magnesium Total Bilirubin AST ALT Alkaline Phosphatase Troponin I 0.020 Total Protein Albumin Globulin Albumin/Globulin Ratio Lipase Procalcitonin < 0.05 Urine RBC None seen Urine WBC 10-30/hpf H Ur Squamous Epith Cells 0-1 /hpf Urine Bacteria Many (>30) H Ur Culture Indicated? Specimen cultured SARS-CoV-2 (PCR) 05/25/20 05/25/20 02:32 03:20 WBC RBC Hgb Hct MCV MCH MCHC RDW Plt Count Neut % (Auto) Lymph % (Auto) [place] % (Auto) Eos % (Auto) Baso % (Auto) Neut # (Auto) Lymph # (Auto) [place] # (Auto) Eos # (Auto) Baso # (Auto) Sodium Potassium Chloride Carbon Dioxide BUN Creatinine Estimated GFR BUN/Creatinine Ratio Glucose Lactate 2.2 H Calcium Magnesium Total Bilirubin AST ALT Alkaline Phosphatase Troponin I Total Protein Albumin Globulin Albumin/Globulin Ratio Lipase Procalcitonin Urine RBC Urine WBC Ur Squamous Epith Cells Urine Bacteria Ur Culture Indicated? SARS-CoV-2 (PCR) Negative Assessment & Plan Assessment & Plan narrative: The patient a 74-year-old Female Frances Foley requires inpatient hospitalization with a history of ID without stent placement in 2019 for chest pain, ZULEIMA, Acute UTI, cognitive impairment. Patient may have a history of complicating comorbidities of CHF, hypertension, GERD, hyperlipidemia, and diabetes type 2 putting her at higher risk for medical or surgical complications to include morbidity and mortality. 1. Acute substernal radiating chest pain, with history of ID and stent placement 2019, acute, present on admit Rule out ID, aortic dissection, PE, DVT, GERD/peptic ulcer disease. Acute pancreatitis/abdomen has been ruled out- per ABD CT. -vitals temp 97.4?, BP 143/71, HR 103, RR 20, O2 saturation 100%. Labs hemoglobin 11.5, sodium 135, potassium 5.2, Mag 1.9, BUN 30, creatinine 1.55, blood sugar 218, alk-phos 175, EGFR 32.7, lactate 2.2, troponin 0.0220, repeat troponin 0.012, lipase 649, procalcitonin negative, heart score of 5, creatinine clearance of 4 mL/min, abdomen CT and negative, and chest x-ray negative. -EKG: I personally reviewed EKG my findings were: -EKG: I personally reviewed EKG my findings were: Sinus rhythm at 123 Poor baseline due to pain in underlying tremor Left axis deviation Lateral mild ST depression without any ST elevation Repeat 1:41 am pain free Sinus rhythm at 91 Slight left axis deviation Normal intervals Lateral ST- T wave changes similar to presentation without any progression - IV fluids: Normal saline at 100 cc/hour -Continuous tele monitoring, fall precations, and echo, and stress test ordered. -Serial troponins 1 Q 6 hours x3, cardiac enzymes, proBNP, TSH, CBC, electrolytes, blood pressure in both arms: Rt 144/81-Lt 148/73 (help to r/o AAA) -for worsening or persistent chest pain will consider: sublingual nitro glycerin 0.4 mg, aspirin 325 mg, order CTA or V/Q scan or CT. Metoprolol 5 mg IV or Cardizem 5 mg to 10 mg IV Q 15 minutes, Beta-katerina, nitrates, MS, heparin, Plavix -Monitor for hypertensive emergencies with acute end-organ damage, ventricular tachycardia, unstable SVT, hypertension, angina or ID, heart failure, renal function. - --Natanael Vasc score:3 (3.2% Stroke risk) - Goals: reducing blood pressure over 24-48 hours, not more than 25-30% in the 1st 24 hours. O2 to keep O2 sats greater than 92% potassium > 4 and Mag > 2 2. Acute kidney injury/acute UTI, acute present on admission, uncontrolled -serum creatinine increase by 0.51mg/dl within 48 hours, SOFA Score: 2. -patient given IV boluses in ER 2 g of ceftriaxone. -will continue with 1 g ceftriaxone Q 24 hours, urine culture and blood cultures pending. 3. Cognitive impairment, acute, unknown if this is acute on chronic or related to ZULEIMA and UTI, present on admission -patient's son-in-law has left the hospital with her medication list, emergency room documentation notes that the patient has no other medical history other than a ID which they gathered from the son-in-law predominantly. I was able to elicit some medical history from the patient but unable to determine if this is accurate or not. -Nurses will attempt to contact family as of 6:00 a.m. and the information will assist in med reconciliation medical history reconciliation the request of patient's medical records. Possible patient history of 4. Congestive heart failure 5. hypertension 6. hyp erlipidemia, 7. GERD 8. diabetes type 2 9.. plaque psoriasis.-again I have no documentation patient is confused and I have no medication list to either confirm or deny this list at this time. Code status: Full code Surrogate decision maker:Kenia Chu Grand daughter COVID PCR: Negative DVT VTE prophylaxis: SCDs, creatinine clearance 41-holding enoxaparin until we can clarify the patient's medical history and medication last. Scores GCS Briseida coma scale eye opening: Spontaneous [place] coma scale verbal response: Confused [place] coma scale motor response: Obey commands [place] coma scale total score: 14 Wells' Criteria for PE Clinical signs and symptoms of DVT: No PE is #1 Dx or equally likely: No Heart rate > 100: Yes Immobilization at least 3 days or surg in previous 4 weeks: No History of PE or DVT: No Hemoptysis: No Malignancy w/Treatment within 6 months or palliative: No Wells' PE Score total: 1.5
[2020-05-25 04:16] LABS: Phosphorous 3.7 mg/dL (2.8-4.1)
--- NOTE | 2020-05-25 06:04 | PC.ADMIT ---
[id number] patient admitted to room 214 per stretcher from ER. Patient states she came to ER because of chest pain radiating to arm with hurting in her head and stomach. Is oriented but with short term memory loss which daughter reports has been ongoing problem for past 1.5 years. She does have some difficulty at times with finding words. Breath sounds CTA with RA sat of 100%. HRR; telemetry reading was SR w/1st degree AVB. Denies nausea but reports having had vomiting intermittently several times weekly over past 2 weeks. BT present and abdomen is soft and nontender. Denies dysuria, frequency, urgency or incontinence. Is able to move herself in bed. Assisted to bathroom with 1 person but is unsteady so will have her use walker in future. Reports she does not use assistive device at home but will use it to get from her car to store when out. Rash on bilateral forearms/hands but denies itching. Bilateral calf SCD's applied. Stress test ordered so will leave NPO until time of stress test is known. Reports having fallen in recent months so fall risk score is high and bed alarm is activated. BP taken on both arms and results reported to INSURANCE HEALTHCARE REPRESENTATIVE. Oriented to bed controls and call light. [id number] Admission Note: The patient,Frances Foley,74 y/o, was given written information regarding hospital policies, unit procedures and contact persons. Patient's smoking status: Never smoker. Vital Signs - 8 hr 05/25/20 00:14 05/25/20 00:25 05/25/20 00:33 Temperature 97.4 F L Pulse Rate 125 H 106 H 126 H Respiratory Rate 17 Blood Pressure 139/98 H 139/90 142/72 H Pulse Oximetry 100 05/25/20 00:58 05/25/20 01:00 05/25/20 01:30 Temperature Pulse Rate 87 89 94 H Respiratory Rate 15 18 18 Blood Pressure 143/71 H Pulse Oximetry 99 97 99 05/25/20 02:00 05/25/20 02:30 05/25/20 03:00 Temperature Pulse Rate 91 H 95 H 103 H Respiratory Rate 19 19 20 Blood Pressure Pulse Oximetry 100 100 100 05/25/20 03:30 05/25/20 03:31 05/25/20 03:35 Temperature Pulse Rate 99 H 95 H 96 H Respiratory Rate 24 10 L Blood Pressure 155/72 H 163/73 H Pulse Oximetry 100 99 100 05/25/20 03:40 05/25/20 03:45 05/25/20 03:50 Temperature Pulse Rate 100 H 101 H 99 H Respiratory Rate 20 16 17 Blood Pressure 155/74 H 160/70 H 148/70 H Pulse Oximetry 99 100 99 05/25/20 03:55 05/25/20 04:00 05/25/20 04:05 Temperature Pulse Rate 100 H 100 H 105 H Respiratory Rate 21 21 21 Blood Pressure 151/70 H 145/66 H 151/67 H Pulse Oximetry 99 98 98 05/25/20 04:10 05/25/20 04:15 05/25/20 04:20 Temperature Pulse Rate 105 H 104 H 101 H Respiratory Rate 19 11 L 16 Blood Pressure 134/70 140/71 141/67 H Pulse Oximetry 99 98 100 05/25/20 04:32 05/25/20 04:46 05/25/20 04:47 Temperature 97.3 F L Pulse Rate 100 H Respiratory Rate 16 Blood Pressure 144/81 H 148/73 H Pulse Oximetry 100 100
[2020-05-25 06:11] LABS: Add Manual Diff / Slide Review NO; Basophils Absolute Auto 0 /uL (0-100); Basophils Percent Auto 0.6 % (0-2); Eosinophils Absolute Auto 200 /uL (0-450); Eosinophils Percent Auto 2.8 % (2-4); Hematocrit 33.8 % (36-46); Hemoglobin 10.6 g/dL (12.0-16.0); Lymphocytes Absolute Auto 1300 /uL (1100-4500); Mean Corpuscular HGB Conc 31.3 % (30-36); Mean Corpuscular Volume 79.8 fL (80-100); Monocytes Absolute Auto 700 /uL (0-900); Monocytes Percent Auto 11.8 % (3-14); Neutrophils Absolute Auto 3700 /uL (1500-7000); Neutrophils Percent Auto 62.8 % (50-75); Platelet Count 272 X10^3/uL (150-400); Red Blood Cell Count 4.23 X10^6/uL (4.0-5.2); Red Cell Distribution Width 18.4 % (11.6-14.8); White Blood Cell Count 5.9 X10^3/uL (4.5-11.0)
[2020-05-25 06:17] LABS: Prothrombin Time 11.6 SECONDS (10.1-12.7)
[2020-05-25 06:19] LABS: PTT Partial Thromboplastin Tim 31 SECONDS (26.4-36.2)
[2020-05-25 06:21] LABS: Alanine Aminotransferase 11 IU/L (<35); Albumin 3.5 g/dL (3.5-5.0); Albumin Globulin Ratio 1.3 (1.0-2.8); Alkaline Phosphatase 161 U/L (38-126); Aspartate Aminotransferase 20 IU/L (14-36); BUN Creatinine Ratio 18.8 (6-22); Blood Urea Nitrogen 27 mg/dL (7-17); Calcium 8.9 mg/dL (8.4-10.2); Carbon Dioxide 27 mmol/L (22-32); Chloride 104 mmol/L (98-107); Cholesterol 166 mg/dL (140-199); Estimated Glomerular Filt Rate 35.6 mL/min (>60); Globulin 2.8 g/dL (1.7-4.1); Glucose 90 mg/dL (80-110); HDL Cholesterol 68 mg/dL (40-60); HEMOLYSIS < 15 (0-50); LDL Cholesterol Calculated 51 mg/dL (<100); Lactate (Lactic Acid) 2.5 mmol/L (0.7-2.1); Potassium 5.2 mmol/L (3.4-5.1); Sodium 136 mmol/L (137-145); Total Protein 6.3 g/dL (6.3-8.2); Triglycerides 233 mg/dL (35-150)
[2020-05-25 06:29] LABS: Bilirubin Total < 0.1 mg/dL (0.2-1.3); NT-proBNP (BNP-Adult 18+) 4330 pg/mL (<125)
[2020-05-25 06:32] LABS: Troponin I 0.027 ng/mL (0.01-0.034)
[2020-05-25 06:52] LABS: TSH w/ Reflex to FT4 2.55 uIU/mL (0.47-4.68)
[2020-05-25 08:05] LABS: Reflexed Lactate in 2 Hours Y
--- NOTE | 2020-05-25 08:09 | OT.IPNOTE ---
Per Dr. Martinez, pt on hold fo OT eval today, therefore check on the pt tomorrow.
[2020-05-25 09:02] LABS: Lactate 2HR (Lactic Acid Rflx) 1.8 mmol/L (0.7-2.1)
[2020-05-25] MEDS: DIGOXIN 0.125 MG TABLET PO (09:20)
[2020-05-25] MEDS: SPIRONOLACTONE 25 MG TABLET 12.5 MG PO (09:21)
[2020-05-25] MEDS: METOPROLOL IR 50 MG TABLET 100 MG PO (09:21)
[2020-05-25] MEDS: DOCUSATE 100 MG CAPSULE PO (09:21)
[2020-05-25] MEDS: ASPIRIN 81 MG CHEW TAB PO (09:21)
[2020-05-25] MEDS: CLOPIDOGREL 75 MG TABLET PO (09:21)
[2020-05-25] MEDS: COLESTIPOL 1 GM TABLET PO (09:22)
[2020-05-25] MEDS: TORSEMIDE 10 MG TABLET 20 MG PO (09:22)
[2020-05-25] MEDS: CEFTRIAXONE 1 GM/50 ML FROZ.PIGGY IV (09:22)
--- NOTE | 2020-05-25 10:08 | CM.DANOTE ---
DCP/Assessment: Reviewed chart. Patient is a 74yr old female admitted to [facility] with chest pain. PCP in [place], [place]. Primary payor is 1)Medicare 2)Sadaf sarah Harmon. Met with patient this AM explained CM/SW role. Patient alert and oriented, resting comfortably in bed at time of visit. Patient undergoing stress test today. Patient reports that she resides with her daughter and family in [place]. Patient reports that she has lived in [place] for approximately 6 months. Patient reports that she has had [facility] and previous orthopedic procedures in the past. Patient reports that she does not currently have local PCP. Patient's current PCP is located in [place], [place]. Patient indicates that she has not got around to changing it. Patient requesting resources for PCP's in [facility]. BUTTING SAW OPERATOR printed list which included 4 of the offices in area. Patient appreciative. Patient undergoing stress test today. Patient reports that she uses cane at baseline. Patient's plan is to d/c home with supportive family when medically stable. P: Anticipate home when stable. CM team to follow closely if needs were to arise. CRISTI Shaw Discharge Planning/Care Management CM Discharge Assessment Start: 05/25/20 10:03 Freq: Status: Active Protocol: Document 05/25/20 10:03 JUNIS (Rec: 05/25/20 10:08 [facility] [[email or web address]] [id number]) Discharge Planning Assessment Assigned Photoengraving Finisher CRISTI Shaw Contact Information Mago Giang (daughter) # [phone] Advance Directives? Yes Advance Directives on File No History Provided By Patient,Medical Record Has Patient been admitted in last 30 No days? Prior Living Arrangements House Household Members family Type of transporation used prior to Relies on Others admit Independent with ADL's Yes Is patient alert and oriented? Yes: some confusion during assessment Caregiver for Another No DME Already Rented / Owned Cane Comment Patient uses cane prn prior to admit. Barriers to Discharge No Discharge Plan Home Transportation Arrangement Family to provide transport. Whiteboard Updated in Patient Room with Yes name and ext. # of Photoengraving Finisher Review Status In Process Next Review Type Continued Stay Review
--- NOTE | 2020-05-25 11:45 | PM.TREADMILL ---
Cardiac Stress Test Report Referral & Results Date Patient Seen: 05/25/20 Time Patient Seen: 11:45 Requesting provider: Marleen Tavera Indication: chest pain Rest ECG: sinus rhythm with nonspecific st changes Procedure Note: After Lexiscan injection had minimal dyspnea, no chest discomfort No significant ST changes on ECG after Lexiscan injection No ectopy Impression: Equivocal Lexiscan stress test Please note: Actual ECG tracings can be found in the PACS system.
--- NOTE | 2020-05-25 13:00 | PT-IP ANOTE ---
Per Dr. Martinez, pt does not have the need for therapy service. DC from PT
[2020-05-25 13:07] LABS: Troponin I 0.022 ng/mL (0.01-0.034)
--- NOTE | 2020-05-25 13:27 | DI.NM.S_ITS ---
DATE OF SERVICE: PROCEDURE: Pharmacological perfusion study. DATE OF STUDY: 05/25/2020. INDICATIONS: Chest pain with known history of CAD, previous myocardial infarction status post PCI, details not available, diabetes mellitus, hypertension, hyperlipidemia. RADIOPHARMACEUTICAL: 28.8 millicurie technetium-99m Myoview IV was injected at stress and 12.3 millicurie technetium-99m Myoview IV was injected at rest. CARDIAC STRESS: The patient underwent IV Lexiscan perfusion study under the supervision of an attending staff using standard intravenous Lexiscan protocol. The patient remained hemodynamically stable. No chest pain. Had minimal dyspnea. Baseline rhythm was sinus with some nonspecific ST changes which remain persistent after Lexiscan injection. No significant arrhythmias seen. RAW DATA: There is increased subdiaphragmatic activity. GATED STUDY: Resting LV ejection fraction 41 and stress LV ejection fraction 32% with mid to distal anterior wall, apical hypokinesis. Resting end-diastolic volume 139 mL. TID ratio 1.10, which is within normal limits. Lung/heart ratio 0.34, which is within normal limits. MYOCARDIAL PERFUSION SCAN: Stress supine, resting supine and stress prone images were compared to each other. It appears to be that patient has predominantly fixed moderate-sized moderate to severely decreased perfusion of mid to distal anterior wall, anterior apex, distal septum and distal lateral wall, consistent with proximal LAD infarction. I do not see any obvious reversible ischemia. CONCLUSION: This is an abnormal myocardial perfusion study consistent with infarction of mid to distal anterior wall, apex, distal anteroseptum, as well as distal anterior lateral wall, consistent with proximal left anterior descending infarction of moderate size. No obvious reversible ischemia. The stress left ventricular ejection fraction 32% and resting left ventricular ejection fraction 41%. No significant arrhythmias seen. The patient remained hemodynamically stable. Frances Foley - VIVIEN/kait/meghan doc#: [id number]/job#: [id number] dd: 05/25/2020 13:00:00 dt: 05/25/2020 13:15:00 DICTATING MD/COPIES TO: Jamar Ortiz MD COPIES MNE: RIKY;
[2020-05-25] MEDS: ACETAMINOPHEN 325 MG TABLET 650 MG PO (13:40)
--- NOTE | 2020-05-25 14:44 | PC.NURSE ---
Pt is dressed and ready for discharge home with Daughter. IV and Tele removed. Went over d/c instructions with Pt and Daughter-discussed d/c meds, time of last dose, reviewed stroke education and CHF guidelines sheet. Encouraged Pt to get a PCP and Assisted Living Associate and follow up within a week or as soon as possible. Pt denies further questions and was taken out via w/c by INDUSTRY ANALYST with daughter and all belongings.
--- NOTE | 2020-05-25 17:19 | P.DS_ITS ---
History of Present Illness History of Present Illness Chief complaint: chest pain/vomiting/pain down left arm Narrative: The patient a 74-year-old Female presented to the ER with a history of CHF, hypertension, GERD, hyperlipidemia, diabetes type 2, and UT without stent placement in 2019 developed increasing chest pain around 430 this afternoon. Her son gave her some nitroglycerin which seem to help significantly. Over the course of the evening the chest pain has increased and includes her left chest radiating through to her back increasing diaphoresis shortness of breath and anxiety. She denies fevers, cough, orthopnea, abdominal pain, lower extremity edema. Upon admit to the floor patient is confused slightly and unable to assist with history of today's events, ROS, or medical history. She did admit to vomiting 3-5 times per week for the past 2 weeks. And through physical exam was able to elicit some medical history as stated above. At this time she denies chest pain shortness of breath rapid or irregular heart rate pain or discomfort body aches fever or chills. Patient presenting vitals temp 97.4?, BP 143/71, HR 103, RR 20, O2 saturation 100%. Labs hemoglobin 11.5, sodium 135, potassium 5.2, BUN 30, creatinine 1.55, blood sugar 218, alk-phos 175, EGFR 32.7, lactate 2.2, troponin 0.0220, repeat troponin 0.012, lipase 649, procalcitonin negative, heart score of 5, creatinine clearance of 4 mL/min, abdomen CT and negative, and chest x-ray negative. Discharge Providers Provider Date of admission: 05/25/20 03:39 Discharge Date: 05/25/20 Consults: 05/25/20 03:50 Consult to Discharge Planning Routine Comment: Consult to Occupational Therapy Evaluate & Treat Comment: Physician Instructions: Evaluate and treat Consult to Physical Therapy Evaluate & Treat Comment: Physician Instructions: Evaluate and Treat Discharge provider: Dereje Martinez MD Summary Hospital Course Discharge Diagnosis: 1. Chest pain 2. Acute cystitis 3. GERD 4. Chronic systolic heart failure 5. Diffuse CAD with ischemic cardiomyopathy 6. Likely chronic kidney disease stage 3 Patient was admitted with complaints of chest pain and intermittent vomiting. She ruled out with serial cardiac enzymes. A chemical Lexiscan stress test showed no reversible ischemia. She has mid to distal proximal and LAD non reversible ischemia with post-stress EF of 32%. This is consistent with old UT. She is continued on her usual cardiac medications. Most likely chest pain is acid reflux related as patient states she ran out of her omeprazole since recent relocation to this area. Patient had urine culture positive for E coli. She has had intermittent vomitin g the past couple of weeks which is not clear if this is from her reflux. She states she was hospitalized in the past due to severe UTI. E coli was pansensitive. She was treated with Rocephin and being discharged on Cipro x3 days. Patient has history of chronic reflux and had been on omeprazole until ran out and could not get a refill. She is sent prescription for pantoprazole. Patient is discharged in stable condition. She is given list of local primary care providers to establish care. Status at Discharge Cognitive/behavioral status at discharge: oriented Functional status at discharge: independent ambulation Overall status at discharge: patient is back to baseline Time Spent with Patient Time spent: Greater than 30 minutes Exam Vital Signs (past 8 hours): - 05/25/20 09:20 05/25/20 11:00 Temperature 98.2 F Pulse Rate 90 Respiratory Rate 17 Blood Pressure 142/82 H 121/57 L Pulse Oximetry 99 Oxygen Delivery Method Room Air Oxygen Flow Rate 0 Objective Labs Result Diagrams: 05/25/20 05:46 05/25/20 05:46 Labs: Laboratory Results - last 24 hr 05/25/20 05/25/20 05/25/20 00:25 00:25 00:25 WBC 6.8 RBC 4.55 Hgb 11.5 L Hct 36.1 MCV 79.5 L MCH 25.2 L MCHC 31.7 RDW 18.3 H Plt Count 296 Neut % (Auto) 66.1 Lymph % (Auto) 20.5 L Sullivan % (Auto) 10.5 Eos % (Auto) 2.2 Baso % (Auto) 0.7 Neut # (Auto) 4500 Lymph # (Auto) 1400 Sullivan # (Auto) 700 Eos # (Auto) 200 Baso # (Auto) 0 PT INR APTT Sodium 135 L Potassium 5.2 H Chloride 99 Carbon Dioxide 30 BUN 30 H Creatinine 1.55 H Estimated GFR 32.7 L BUN/Creatinine Ratio 19.4 Glucose 218 H Lactate 2.8 H Calcium 9.8 Phosphorus Magnesium 1.9 Total Bilirubin 0.2 AST 23 ALT 14 Alkaline Phosphatase 175 H Troponin I 0.012 NT-Pro-B Natriuret Pep Total Protein 7.4 Albumin 4.0 Globulin 3.4 Albumin/Globulin Ratio 1.2 Triglycerides Cholesterol LDL Cholesterol, Calc HDL Cholesterol Lipase 649 H Procalcitonin TSH Urine RBC Urine WBC Ur Squamous Epith Cells Urine Bacteria Ur Culture Indicated? SARS-CoV-2 (PCR) 05/25/20 05/25/20 05/25/20 00:25 00:25 02:20 WBC RBC Hgb Hct MCV MCH MCHC RDW Plt Count Neut % (Auto) Lymph % (Auto) Sullivan % (Auto) Eos % (Auto) Baso % (Auto) Neut # (Auto) Lymph # (Auto) Sullivan # (Auto) Eos # (Auto) Baso # (Auto) PT INR APTT Sodium Potassium Chloride Carbon Dioxide BUN Creatinine Estimated GFR BUN/Creatinine Ratio Glucose Lactate Calcium Phosphorus 3.7 Magnesium Cancelled Total Bilirubin AST ALT Alkaline Phosphatase Troponin I NT-Pro-B Natriuret Pep Total Protein Albumin Globulin Albumin/Globulin Ratio Triglycerides Cholesterol LDL Cholesterol, Calc HDL Cholesterol Lipase Procalcitonin < 0.05 TSH Urine RBC None seen Urine WBC 10-30/hpf H Ur Squamous Epith Cells 0-1 /hpf Urine Bacteria Many (>30) H Ur Culture Indicated? Specimen cultured SARS-CoV-2 (PCR) 05/25/20 05/25/20 05/25/20 02:32 02:32 03:20 WBC RBC Hgb Hct MCV MCH MCHC RDW Plt Count Neut % (Auto) Lymph % (Auto) Sullivan % (Auto) Eos % (Auto) Baso % (Auto) Neut # (Auto) Lymph # (Auto) Sullivan # (Auto) Eos # (Auto) Baso # (Auto) PT INR APTT Sodium Potassium Chloride Carbon Dioxide BUN Creatinine Estimated GFR BUN/Creatinine Ratio Glucose Lactate 2.2 H Calcium Phosphorus Magnesium Total Bilirubin AST ALT Alkaline Phosphatase Troponin I 0.020 NT-Pro-B Natriuret Pep Total Protein Albumin Globulin Albumin/Globulin Ratio Triglycerides Cholesterol LDL Cholesterol, Calc HDL Cholesterol Lipase Procalcitonin TSH Urine RBC Urine WBC Ur Squamous Epith Cells Urine Bacteria Ur Culture Indicated? SARS-CoV-2 (PCR) Negative 05/25/20 05/25/20 05/25/20 05:46 05:46 05:46 WBC 5.9 RBC 4.23 Hgb 10.6 L Hct 33.8 L MCV 79.8 L MCH 25.0 L MCHC 31.3 RDW 18.4 H Plt Count 272 Neut % (Auto) 62.8 Lymph % (Auto) 22.0 L Sullivan % (Auto) 11.8 Eos % (Auto) 2.8 Baso % (Auto) 0.6 Neut # (Auto) 3700 Lymph # (Auto) 1300 Sullivan # (Auto) 700 Eos # (Auto) 200 Baso # (Auto) 0 PT 11.6 INR 1.0 APTT 31 Sodium Potassium Chloride Carbon Dioxide BUN Creatinine Estimated GFR BUN/Creatinine Ratio Glucose Lactate Calcium Phosphorus Magnesium Total Bilirubin AST ALT Alkaline Phosphatase Troponin I 0.027 NT-Pro-B Natriuret Pep Total Protein Albumin Globulin Albumin/Globulin Ratio Triglycerides Cholesterol LDL Cholesterol, Calc HDL Cholesterol Lipase Procalcitonin TSH Urine RBC Urine WBC Ur Squamous Epith Cells Urine Bacteria Ur Culture Indicated? SARS-CoV-2 (PCR) 05/25/20 05/25/20 05/25/20 05:46 05:46 05:46 WBC RBC Hgb Hct MCV MCH MCHC RDW Plt Count Neut % (Auto) Lymph % (Auto) Sullivan % (Auto) Eos % (Auto) Baso % (Auto) Neut # (Auto) Lymph # (Auto) Sullivan # (Auto) Eos # (Auto) Baso # (Auto) PT INR APTT Sodium 136 L Potassium 5.2 H Chloride 104 Carbon Dioxide 27 BUN 27 H Creatinine 1.44 H Estimated GFR 35.6 L BUN/Creatinine Ratio 18.8 Glucose 90 D Lactate 2.5 H Calcium 8.9 Phosphorus Magnesium Total Bilirubin < 0.1 L AST 20 ALT 11 Alkaline Phosphatase 161 H Troponin I NT-Pro-B Natriuret Pep 4330 H Total Protein 6.3 Albumin 3.5 Globulin 2.8 Albumin/Globulin Ratio 1.3 Triglycerides 233 H Cholesterol 166 LDL Cholesterol, Calc 51 HDL Cholesterol 68 H Lipase Procalcitonin TSH 2.55 Urine RBC Urine WBC Ur Squamous Epith Cells Urine Bacteria Ur Culture Indicated? SARS-CoV-2 (PCR) 05/25/20 05/25/20 08:25 11:47 WBC RBC Hgb Hct MCV MCH MCHC RDW Plt Count Neut % (Auto) Lymph % (Auto) Sullivan % (Auto) Eos % (Auto) Baso % (Auto) Neut # (Auto) Lymph # (Auto) Sullivan # (Auto) Eos # (Auto) Baso # (Auto) PT INR APTT Sodium Potassium Chloride Carbon Dioxide BUN Creatinine Estimated GFR BUN/Creatinine Ratio Glucose Lactate 1.8 Calcium Phosphorus Magnesium Total Bilirubin AST ALT Alkaline Phosphatase Troponin I 0.022 NT-Pro-B Natriuret Pep Total Protein Albumin Globulin Albumin/Globulin Ratio Triglycerides Cholesterol LDL Cholesterol, Calc HDL Cholesterol Lipase Procalcitonin TSH Urine RBC Urine WBC Ur Squamous Epith Cells Urine Bacteria Ur Culture Indicated? SARS-CoV-2 (PCR) [facility] Medical History (Updated 05/25/20 @ 05:14 by ELIER Hernandez) CHF (congestive heart failure) Diabetes mellitus type 2 in obese Hyperlipidemia Hypertension Myocardial infarction Plaque psoriasis Surgical History (Updated 05/25/20 @ 05:14 by ELIER Hernandez) History of appendectomy History of bilateral hip replacements History of cholecystectomy History of left knee surgery History of surgery on right wrist Family History (Updated 05/25/20 @ 05:59 by ELIER Hernandez) Mother Congestive heart failure Brother Congestive heart failure Social History household members: family Smoking Status: Never smoker alcohol intake: never Discharge Plan Discharge Plan Patient Disposition: Home Provider Discharge Comment: Your cardiac testing looks good. I sent in prescription for pantoprazole for acid reflux. I also sent in prescription for Cipro to treat UTI. Please schedule appointment to establish with PCP. Nursing Discharge Comment: Give patient list of local primary care providers. Discharge orders & Medications Prescriptions: New pantoprazole 40 mg tablet,delayed release (DR/EC) 40 mg PO DAILY Qty: 30 RF: 0 ciprofloxacin HCl 250 mg tablet 250 mg PO BID Qty: 6 RF: 0 Continued clopidogrel 75 mg Tablet 75 mg PO DAILY RF: 0 docusate sodium 100 mg Capsule 100 mg PO DAILY RF: 0 escitalopram oxalate 10 mg Tablet 10 mg PO DAILY RF: 0 digoxin 125 mcg (0.125 mg) Tablet 125 mcg PO DAILY RF: 0 potassium chloride 10 mEq Tablet Extended Release 10 meq PO DAILY RF: 0 cholecalciferol (vitamin D3) 25 mcg (1,000 unit) Tablet 25 mcg PO BID RF: 0 spironolactone 25 mg Tablet 12.5 mg PO DAILY RF: 0 atorvastatin 40 mg Tablet 40 mg PO BEDTIME RF: 0 lisinopril 5 mg Tablet 5 mg PO BID RF: 0 aspirin 81 mg Tablet 81 mg PO BID RF: 0 torsemide 20 mg Tablet 20 mg PO BID RF: 0 metformin 500 mg Tablet 500 mg PO BID RF: 0 metoprolol tartrate 100 mg Tablet 100 mg PO BID RF: 0 colestipol 1 gram Tablet 1 g PO BID RF: 0 Diet/Activity/Treatments Diet: Diet as Tolerated Visit Report/Discharge Packet Instructions: DI for Heart Failure, DI for Chest Pain
--- NOTE | 2020-06-06 13:07 | CM.DPNOTE ---
Spoke to Ms. Foley because she received a OBS status notice in the mail and she didn't understand why. After our conversation she was very upset about her OBS status and the chance that she will receive a bill. I offered to give her the phone number for the billing department if/when she receives a bill. I explained that they would be happy to talk with her about the bill and her challenges of paying bills on a fixed income. I explained I didn't know how much - if any - balance could be expected. Despite my best efforts of explaining why her stay was OBS she hung up after exclaiming, I'll never be back there again if my visits are not going to be taken seriously.
== END 2020-05-25 14:48 | disposition home or self-care (01) | DRG 392 ==
LOC: ED 03:38 → AC 05:39
PROVIDERS: Admitting Provider Nurse Practitioner Family; Emergency Provider Emergency Medicine; Visit Provider Nurse Practitioner Family
DX: K21.9 Gastro-esophageal reflux disease without esophagitis (principal); N30.00 Acute cystitis without hematuria; I13.0 Hypertensive heart and chronic kidney disease with heart failure and stage 1 through stage 4 chronic kidney disease, or unspecified chronic kidney disease; I50.22 Chronic systolic (congestive) heart failure; B96.20 Unspecified Escherichia coli [E. coli] as the cause of diseases classified elsewhere; N18.30 Chronic kidney disease, stage 3 unspecified; I25.5 Ischemic cardiomyopathy; E78.5 Hyperlipidemia, unspecified; E11.22 Type 2 diabetes mellitus with diabetic chronic kidney disease; L40.0 Psoriasis vulgaris; Z79.84 Long term (current) use of oral hypoglycemic drugs; Z20.822 Contact with and (suspected) exposure to COVID-19
CPT/HCPCS: 36415; 71045; 74177; 78452; 80053; 80061; 81003; 81015; 82962; 83605; 83690; 83735; 83880; 84100; 84145; 84443; 84484; 85025; 85610; 85730; 87040; 87077; 87086; 87186; 87635; 93005; 93010; 93017; 96361; 96374; 99284; C9803; A9502; J0696; J2405; J2785; Q9967

== ENCOUNTER 2020-08-24 18:21 | Emergency (ER) | payer MEDICARE, OTHER, SELFPAY ==
[2020-05-25 04:32] VITALS: BMI 23.3
[2020-08-24] VITALS (19 sets, daily range): BP systolic 110–181; BP diastolic 60–76; PULSE 68–91; RESP 16–26; TEMP 36.9; O2SAT 93–100
--- NOTE | 2020-08-24 18:31 | DI.CT.S_ITS ---
PROCEDURE: CT HEAD/BRAIN WO CON INDICATIONS: Fall TECHNIQUE: Noncontrast 4.5 mm thick angled axial sections acquired from the foramen magnum to the vertex, with coronal and sagittal reformats. For radiation dose reduction, the following was used: automated exposure control, adjustment of mA and/or kV according to patient size. COMPARISON: [facility], CT, CT CERVICAL SPINE WO CON, 08/24/2020, 18:40. FINDINGS: Image quality: Excellent. CSF spaces: Basal cisterns are patent. No extra-axial fluid collections. Ventricles are normal in size and shape. Brain: No midline shift. No intracranial masses or hemorrhage. No area of hypodensity in a large vascular distribution to suggest acute infarction. Periventricular hypodensity consistent with chronic microvascular ischemic change. Age-related parenchymal loss. Skull and face: Calvarium and visualized facial bones are intact, without suspicious lesions. Sinuses: Visualized sinuses and mastoids are clear. IMPRESSION: No acute intracranial abnormality. Dictated by: Juanito Presley M.D. on 08/24/2020 at 19:43 Approved by: Juanito Presley M.D. on 08/24/2020 at 19:46
--- NOTE | 2020-08-24 18:31 | DI.CT.S_ITS ---
PROCEDURE: CT CERVICAL SPINE WO CON INDICATIONS: Fall TECHNIQUE: Noncontrast 3 mm thick sections acquired from the skull base to the T4 level. Sagittal and coronal reformats were then constructed. For radiation dose reduction, the following was used: automated exposure control, adjustment of mA and/or kV according to patient size. COMPARISON: [facility], CT, CT CHEST W CON, 08/24/2020, 18:40. FINDINGS: Image quality: Excellent. Bones: No fractures or dislocations. Visualized superior ribs are intact. Moderate degenerative change in the cervical spine. Soft tissues: Prevertebral soft tissues are normal in thickness. No paravertebral hematomas. No apical pneumothoraces. Aortic arch atherosclerotic calcifications. There is fluid in the upper esophagus, (). IMPRESSION: 1. No acute osseous abnormality. 2. Fluid in the esophagus. This could be seen in gastroesophageal reflux. This may place the patient at increased risk for aspiration. Dictated by: Juanito Presley M.D. on 08/24/2020 at 19:46 Approved by: Juanito Presley M.D. on 08/24/2020 at 19:50
--- NOTE | 2020-08-24 18:46 | DI.RAD.S_ITS ---
PROCEDURE: XR HUMERUS LT 2V INDICATIONS: trauma TECHNIQUE: 2 views of the humerus were acquired. COMPARISON: [facility], CT, CT CHEST W CON, 08/24/2020, 18:40. FINDINGS: Bones: No fractures or dislocations. No suspicious bony lesions. Soft tissues: No suspicious soft tissue calcifications. IMPRESSION: No acute osseous abnormality. Dictated by: Juanito Presley M.D. on 08/24/2020 at 20:17 Approved by: Juanito Presley M.D. on 08/24/2020 at 20:18
--- NOTE | 2020-08-24 18:46 | DI.CT.S_ITS ---
PROCEDURE: CT CHEST W CON INDICATIONS: trauma, Left ant chest pain with contusion, on plavix TECHNIQUE: After the administration of intravenous contrast, 5 mm thick sections acquired from the pulmonary apices to the posterior costophrenic angles. 1 mm axial lung, 5 mm thick coronal and sagittal reformats and 7 mm axial MIP were acquired. For radiation dose reduction, the following was used: automated exposure control, adjustment of mA and/or kV according to patient size. COMPARISON: None. FINDINGS: Image quality: Excellent. Lungs and pleura: No acute air space opacities. No pleural effusions or pneumothorax. Central and peripheral airways are patent and normal in caliber. Mediastinum: Heart size is normal. No pericardial effusion. No mediastinal or hilar adenopathy by size criteria. Thoracic aorta and central pulmonary arteries are normal in size. Left common carotid artery originates off of the brachiocephalic artery, variant. Esophagus is normal in caliber. Trace fluid in the midesophagus. This could be seen in reflux. Question small hiatal hernia. Bones and chest wall: No suspicious bony lesions. Tiny sclerotic foci in the right ribs have the appearance of bone islands. No vertebral body compression fractures. No axillary or supraclavicular adenopathy by size criteria. Tiny left thyroid nodule. Abdomen: No free fluid. Visualized upper abdominal solid organs appear normal. Upper abdominal bowel loops are normal in caliber. IMPRESSION: 1. No acute traumatic injury identified. No aortic injury. No central pulmonary embolism. No rib fractures. 2. Lungs are clear. 3. Small volume of fluid in the midesophagus. Dictated by: Juanito Presley M.D. on 08/24/2020 at 20:10 Approved by: Juanito Presley M.D. on 08/24/2020 at 20:15
[2020-08-24] MEDS: MORPHINE 2 MG/ML INJ IV ×3 (18:47→23:33)
[2020-08-24 18:54] LABS: Add Manual Diff / Slide Review NO; Basophils Absolute Auto 100 /uL (0-100); Basophils Percent Auto 0.8 % (0-2); Eosinophils Absolute Auto 200 /uL (0-450); Eosinophils Percent Auto 2.1 % (2-4); Hematocrit 29.2 % (36-46); Hemoglobin 10.4 g/dL (12.0-16.0); Lymphocytes Absolute Auto 1300 /uL (1100-4500); Lymphocytes Percent Auto 13.5 % (25-40); Mean Corpuscular HGB Conc 35.6 % (30-36); Mean Corpuscular Hemoglobin 31.9 PG (26-34); Mean Corpuscular Volume 89.6 fL (80-100); Monocytes Absolute Auto 600 /uL (0-900); Monocytes Percent Auto 6.8 % (3-14); Neutrophils Absolute Auto 7200 /uL (1500-7000); Neutrophils Percent Auto 76.8 % (50-75); Platelet Count 276 X10^3/uL (150-400); Red Blood Cell Count 3.26 X10^6/uL (4.0-5.2); White Blood Cell Count 9.4 X10^3/uL (4.5-11.0)
[2020-08-24 19:11] LABS: INR 0.9 (0.9-1.3); Prothrombin Time 10.5 SECONDS (10.1-12.7)
[2020-08-24 19:14] LABS: PTT Partial Thromboplastin Tim 30 SECONDS (26.4-36.2)
[2020-08-24 19:16] LABS: Alanine Aminotransferase 11 IU/L (<35); Albumin 3.6 g/dL (3.5-5.0); Albumin Globulin Ratio 1.2 (1.0-2.8); Alkaline Phosphatase 179 U/L (38-126); Aspartate Aminotransferase 18 IU/L (14-36); BUN Creatinine Ratio 18.4 (6-22); Bilirubin Total 0.2 mg/dL (0.2-1.3); Blood Urea Nitrogen 38 mg/dL (7-17); Calcium 8.7 mg/dL (8.4-10.2); Carbon Dioxide 20 mmol/L (22-32); Chloride 97 mmol/L (98-107); Creatine Kinase 29 U/L (30-135); Estimated Glomerular Filt Rate 23.3 mL/min (>60); Glucose 414 mg/dL (80-110); HEMOLYSIS < 15 (0-50); Lipase 352 U/L (23-300); Potassium 4.9 mmol/L (3.4-5.1); Sodium 129 mmol/L (137-145); Total Protein 6.6 g/dL (6.3-8.2)
[2020-08-24 19:28] LABS: Troponin I < 0.012 ng/mL (0.01-0.034)
--- NOTE | 2020-08-24 20:24 | ED_ITS ---
HPI - General Adult General Chief complaint: Trauma Stated complaint: fall up the stairs, chest and left wrist pain Time Seen by Provider: 08/24/20 18:32 Source: patient Mode of arrival: Ambulatory History of Present Illness HPI narrative: 75-year-old woman with a history of prior stroke anticoagulated on Plavix with a history of cardiac disease, hypertension reflux who presents after falling up a set of stairs landing on her left shoulder left wrist left anterior chest approximately 3 or 4 hours prior to arrival. She was able to get up and walk however her pain continues to increase so she comes in for further evaluation. She is able to speak in full sentences and is in no acute respiratory distress. Modified trauma was activated. Related Data Home Medications Medication Instructions Recorded Confirmed aspirin 81 mg PO BID 05/25/20 05/25/20 atorvastatin 40 mg PO BEDTIME 05/25/20 05/25/20 cholecalciferol (vitamin D3) 25 mcg PO BID 05/25/20 05/25/20 clopidogrel 75 mg PO DAILY 05/25/20 05/25/20 colestipol 1 g PO BID 05/25/20 05/25/20 digoxin 125 mcg PO DAILY 05/25/20 05/25/20 docusate sodium 100 mg PO DAILY 05/25/20 05/25/20 escitalopram oxalate 10 mg PO DAILY 05/25/20 05/25/20 lisinopril 5 mg PO BID 05/25/20 05/25/20 metformin 500 mg PO BID 05/25/20 05/25/20 metoprolol tartrate 100 mg PO BID 05/25/20 05/25/20 potassium chloride 10 meq PO DAILY 05/25/20 05/25/20 spironolactone 12.5 mg PO DAILY 05/25/20 05/25/20 torsemide 20 mg PO BID 05/25/20 05/25/20 Previous Rx's Medication Instructions Recorded ciprofloxacin HCl 250 mg PO BID #6 tab 05/25/20 pantoprazole 40 mg PO DAILY #30 tab 05/25/20 oxycodone-acetaminophen 1 tab PO Q6H PRN 7 Days #14 tab 08/25/20 Allergies Allergy/AdvReac Type Severity Reaction Status Date / Time dimenhydrinate Allergy Verified 03/03/20 13:26 [From Dramamine] diphenhydramine AdvReac Verified 08/24/20 20:33 [From Benadryl] hydrocodone AdvReac Verified 08/24/20 20:33 Review of Systems Review of Systems Narrative: Aside from left anterior chest wall pain from the fall today aside from left anterior chest wall pain from the fall todayPertinent positive and negative findings as per HPI Remainder of review of systems is otherwise unremarkable for Constitutional: Fevers, chills, ENT: No sore throat CV: palpitations, dyspnea on exertion Respiratory: Cough, wheeze, dyspnea GI: Nausea, vomiting, diarrhea, : Dysuria, hematuria, flank pain Patient History Medical History CHF (congestive heart failure) Diabetes mellitus type 2 in obese Hyperlipidemia Hypertension Myocardial infarction Plaque psoriasis Surgical History History of appendectomy History of bilateral hip replacements History of cholecystectomy History of left knee surgery History of surgery on right wrist Family History Mother Congestive heart failure Brother Congestive heart failure Social History household members: family Smoking Status: Never smoker alcohol intake: never Smoking Status: Never smoker Substance Use Type: does not use Exam Narrative Exam Narrative: General: In significant pain causing moderate distress. HEENT: Moist mucous membranes, normal sclera with reactive pupils, head and face are atraumatic Neck: No JVD, supple, no point cervical tenderness but she does have distractin g injuries Respiratory: Lungs are clear to auscultation, no wheezing no rales no rhonchi. Splinting with breathing secondary to left anterior chest wall pain Chest: Bruising over the left anterior ribs in a linear pattern consistent with hitting the edge of the stair. Cardiac: Regular rate and rhythm no murmurs no bruits Abdomen: Soft, nontender, good bowel tones, no flank pain Spine and pelvis: No tenderness along the thoracic or lumbar spine to palpation. No tenderness with pelvic ring manipulation Skin: Warm and dry, occasional psoriatic plaques Neurologic: Grossly neurologically intact with no obvious asymmetries or abnormalities Extremities: Bruising to the proximal left forearm with tenderness. No shoulder range of motion pain. Pain in the left wrist without obvious contusion Psych: In pain and distracted Initial Vital Signs Initial Vital Signs: Vital Signs Temperature 98.4 F 08/24/20 18:29 Pulse Rate 91 H 08/24/20 18:29 Respiratory Rate 22 08/24/20 18:29 Blood Pressure 110/63 08/24/20 18:29 Pulse Oximetry 97 08/24/20 18:29 Course Orders Ordered: ED Orders 08/24/20 18:31 CT cervical spine wo con Stat CT head/brain wo con Stat 08/24/20 18:35 EKG-12 Lead Stat 08/24/20 18:46 CT chest w con Stat XR humerus LT 2V Stat 08/24/20 18:47 Complete Blood Count AUTO DIFF Stat Comprehensive Metabolic Panel Stat Lipase Stat Partial Thromboplastin Time Stat Prothrombin Time INR Stat Troponin & CK Cardiac Panel Stat 08/24/20 20:29 XR wrist LT min 3V Stat 08/24/20 20:55 Hemoglobin and Hematocrit Stat Troponin I Stat 08/24/20 23:39 CT abdomen pelvis w con Stat Morphine Sulfate (Morphine 2 Mg/Ml Inj) 2 mg IV Q5MIN PRN PRN Reason: Chest Pain Last Admin: 08/24/20 23:33 Dose: 2 mg Documented by: Admin: 08/24/20 19:52 Dose: 2 mg Documented by: Admin: 08/24/20 18:47 Dose: 2 mg Documented by: DENNIS Discontinued Medications Ketorolac Tromethamine (Ketorolac 30 Mg/Ml Vial) 15 mg IV NOW ONE Stop: 08/24/20 20:30 Last Admin: 08/24/20 20:46 Dose: 15 mg Documented by: DENNIS Ondansetron HCl (Ondansetron 4 Mg/2 Ml Inj) 4 mg IV NOW ONE Stop: 08/24/20 20:42 Last Admin: 08/24/20 20:46 Dose: 4 mg Documented by: DENNIS Oxycodone/Acetaminophen (Oxycodone/Acetaminophen 5/325 Tablet) 1 tab PO NOW ONE Stop: 08/24/20 20:30 Last Admin: 08/24/20 20:47 Dose: 1 tab Documented by: DENNIS Oxycodone/Acetaminophen (Oxycodone/Acetaminophen 5/325 Tablet) 1 tab PO NOW ONE Stop: 08/25/20 01:01 Vital Signs Vital signs: Vital Signs - 8 hr 05/12/21 18:29 08/24/20 19:11 08/24/20 19:12 Temperature 98.4 F Pulse Rate 91 H 86 82 Respiratory Rate 22 20 Blood Pressure 110/63 177/74 H Pulse Oximetry 97 97 98 08/24/20 19:30 08/24/20 19:31 08/24/20 19:46 Temperature Pulse Rate 86 85 79 Respiratory Rate 24 23 21 Blood Pressure 181/76 H 166/72 H Pulse Oximetry 97 97 97 08/24/20 20:00 08/24/20 20:30 08/24/20 20:31 Temperature Pulse Rate 80 74 74 Respiratory Rate 24 16 16 Blood Pressure 163/70 H 169/71 H Pulse Oximetry 98 98 97 08/24/20 21:00 08/24/20 21:30 08/24/20 21:34 Temperature Pulse Rate 69 73 72 Respiratory Rate 16 18 20 Blood Pressure 142/60 H Pulse Oximetry 98 99 99 08/24/20 22:00 08/24/20 22:01 08/24/20 22:30 Temperature Pulse Rate 83 68 72 Respiratory Rate 17 24 24 Blood Pressure 166/71 H Pulse Oximetry 97 98 98 08/24/20 22:31 08/24/20 22:32 08/24/20 22:59 Temperature Pulse Rate 72 74 Respiratory Rate 26 H 23 Blood Pressure 154/65 H 171/72 H Pulse Oximetry 100 08/25/20 00:00 Temperature Pulse Rate 68 Respiratory Rate 21 Blood Pressure 170/82 H Pulse Oximetry 96 Medical Decision Making Medical Records Medical records reviewed: Yes I reviewed the patient's medical records. Lab Data Lab results reviewed: Yes I reviewed the patient's lab results. Result diagrams: 08/24/20 20:55 08/24/20 18:47 Labs: Lab Results 08/24/20 08/24/20 08/24/20 Range/Units 18:47 18:47 18:47 WBC 9.4 (4.5-11.0) X10^3/uL RBC 3.26 L (4.0-5.2) X10^6/uL Hgb 10.4 L (12.0-16.0) g/dL Hct 29.2 L (36-46) % MCV 89.6 (80-100) fL MCH 31.9 (26-34) PG MCHC 35.6 (30-36) % RDW 15.0 H (11.6-14.8) % Plt Count 276 (150-400) X10^3/uL Neut % (Auto) 76.8 H (50-75) % Lymph % (Auto) 13.5 L (25-40) % Taney % (Auto) 6.8 (3-14) % Eos % (Auto) 2.1 (2-4) % Baso % (Auto) 0.8 (0-2) % Neut # (Auto) 7200 H (4554-5596) /uL Lymph # (Auto) 1300 (6653-5679) /uL Taney # (Auto) 600 (0-900) /uL Eos # (Auto) 200 (0-450) /uL Baso # (Auto) 100 (0-100) /uL PT 10.5 (10.1-12.7) SECONDS INR 0.9 (0.9-1.3) APTT 30 (26.4-36.2) SECONDS Sodium 129 L (137-145) mmol/L Potassium 4.9 (3.4-5.1) mmol/L Chloride 97 L (98-107) mmol/L Carbon Dioxide 20 L (22-32) mmol/L BUN 38 H (7-17) mg/dL Creatinine 2.07 H (0.52-1.04) mg/dL Estimated GFR 23.3 L (>60) mL/min BUN/Creatinine Ratio 18.4 (6-22) Glucose 414 H (80-110) mg/dL Calcium 8.7 (8.4-10.2) mg/dL Total Bilirubin 0.2 (0.2-1.3) mg/dL AST 18 (14-36) IU/L ALT 11 (<35) IU/L Alkaline Phosphatase 179 H (38-126) U/L Total Creatine Kinase 29 L (30-135) U/L CK-MB (CK-2) TNP CK-MB (CK-2) Rel Index TNP Troponin I < 0.012 (0.01-0.034) ng/mL Total Protein 6.6 (6.3-8.2) g/dL Albumin 3.6 (3.5-5.0) g/dL Globulin 3.0 (1.7-4.1) g/dL Albumin/Globulin Ratio 1.2 (1.0-2.8) Lipase 352 H (23-300) U/L 08/24/20 08/24/20 Range/Units 20:55 20:55 WBC (4.5-11.0) X10^3/uL RBC (4.0-5.2) X10^6/uL Hgb 9.5 L (12.0-16.0) g/dL Hct 26.4 L (36-46) % MCV (80-100) fL MCH (26-34) PG MCHC (30-36) % RDW (11.6-14.8) % Plt Count (150-400) X10^3/uL Neut % (Auto) (50-75) % Lymph % (Auto) (25-40) % Taney % (Auto) (3-14) % Eos % (Auto) (2-4) % Baso % (Auto) (0-2) % Neut # (Auto) (5975-4472) /uL Lymph # (Auto) (0645-6943) /uL Taney # (Auto) (0-900) /uL Eos # (Auto) (0-450) /uL Baso # (Auto) (0-100) /uL PT (10.1-12.7) SECONDS INR (0.9-1.3) APTT (26.4-36.2) SECONDS Sodium (137-145) mmol/L Potassium (3.4-5.1) mmol/L Chloride (98-107) mmol/L Carbon Dioxide (22-32) mmol/L BUN (7-17) mg/dL Creatinine (0.52-1.04) mg/dL Estimated GFR (>60) mL/min BUN/Creatinine Ratio (6-22) Glucose (80-110) mg/dL Calcium (8.4-10.2) mg/dL Total Bilirubin (0.2-1.3) mg/dL AST (14-36) IU/L ALT (<35) IU/L Alkaline Phosphatase (38-126) U/L Total Creatine Kinase (30-135) U/L CK-MB (CK-2) CK-MB (CK-2) Rel Index Troponin I < 0.012 (0.01-0.034) ng/mL Total Protein (6.3-8.2) g/dL Albumin (3.5-5.0) g/dL Globulin (1.7-4.1) g/dL Albumin/Globulin Ratio (1.0-2.8) Lipase (23-300) U/L Imaging Data CT - cervical spine: Radiologist's Impression: FINDINGS: Image quality: Excellent. Bones: No fractures or dislocations. Visualized superior ribs are intact. Moderate degenerative change in the cervical spine. Soft tissues: Prevertebral soft tissues are normal in thickness. No paravertebral hematomas. No apical pneumothoraces. Aortic arch atherosclerotic calcifications. There is fluid in the upper esophagus, (). IMPRESSION: 1. No acute osseous abnormality. 2. Fluid in the esophagus. This could be seen in gastroesophageal reflux. This may place the patient at increased risk for aspiration. Dictated by: Juanito Presley M.D. on 08/24/2020 at 19:46 CT scan - head: Radiologist's Impression: FINDINGS: Image quality: Excellent. CSF spaces: Basal cisterns are patent. No extra-axial fluid collections. Ventricles are normal in size and shape. Brain: No midline shift. No intracranial masses or hemorrhage. No area of hypodensity in a large vascular distribution to suggest acute infarction. Periventricular hypodensity consistent with chronic microvascular ischemic change. Age-related parenchymal loss. Skull and face: Calvarium and visualized facial bones are intact, without suspicious lesions. Sinuses: Visualized sinuses and mastoids are clear. IMPRESSION: No acute intracranial abnormality. Dictated by: Juanito Presley M.D. on 08/24/2020 at 19:43 CT scan - chest: Radiologist's Impression: FINDINGS: Image quality: Excellent. Lungs and pleura: No acute air space opacities. No pleural effusions or pneumothorax. Central and peripheral airways are patent and normal in caliber. Mediastinum: Heart size is normal. No pericardial effusion. No mediastinal or hilar adenopathy by size criteria. Thoracic aorta and central pulmonary arteries are normal in size. Left common carotid artery originates off of the brachiocephalic artery, variant. Esophagus is normal in caliber. Trace fluid in the midesophagus. This could be seen in reflux. Question small hiatal hernia. Bones and chest wall: No suspicious bony lesions. Tiny sclerotic foci in the right ribs have the appearance of bone islands. No vertebral body compression fractures. No axillary or supraclavicular adenopathy by size criteria. Tiny left thyroid nodule. Abdomen: No free fluid. Visualized upper abdominal solid organs appear normal. Upper abdominal bowel loops are normal in caliber. IMPRESSION: 1. No acute traumatic injury identified. No aortic injury. No central pulmonary embolism. No rib fractures. 2. Lungs are clear. 3. Small volume of fluid in the midesophagus. Dictated by: Juanito Presley M.D. on 08/24/2020 at 20:10 X-ray humerus: Radiologist's Impression: FINDINGS: Bones: No fractures or dislocations. No suspicious bony lesions. Soft tissues: No suspicious soft tissue calcifications. IMPRESSION: No acute osseous abnormality. Dictated by: Juanito Presley M.D. on 08/24/2020 at 20:17 X-ray wrist: Radiologist's Impression: FINDINGS: Bones: Distal radius fracture with mild impaction. Minimal displacement. No dislocation. No suspicious bony lesions. Bones are osteopenic. Scaphoid view: Question linear sclerosis at the distal pole. Soft tissues: No suspicious soft tissue calcifications. IMPRESSION: Distal radius fracture with mild impaction. Question linear sclerosis at the distal pole of the scaphoid bone. -Recommend attention on follow-up exam with scaphoid view. Bones are osteopenic. Dictated by: Juanito Presley M.D. on 08/24/2020 at 20:53 CT scan - abdomen/pelvis: Radiologist's Impression: No acute intra-abdominal abnormality evident. Mild old compression fracture L1 vertebral body. Dr Lindsay Baltazar MD ECG Data Attestation: I personally reviewed and interpreted this ECG as follows: Interpretation: Sinus rhythm with first-degree block Slightly depressed T-waves laterally Normal axis MDM Narrative Medical decision making narrative: 75-year-old woman with what sounds like a mechanical fall up the stairs 3 or 4 hours prior to arrival. Increasing pain Because she is on Plavix, over 65 and possible significant head trauma, head CT was done. There is no evidence of acute bleeding. Cervical spine is also cleared the a CT scan. With the significant pain to the anterior chest wall in the bruising a CT scan of the chest is ordered with no trauma identified specifically no hemopneumothorax or rib fractures. X-rays of the proximal humerus are unremarkable that she does have a distal radius fracture that will be splinted and will need outpatient orthopedic follow-up. Of concern, she does have known significant LED disease and initial EKG changes with none available for comparison. Initial troponin was unremarkable as was repeat. Her initial hemoglobin was slightly concerning with a drop from 10.6 in May to 10.4. Because of the Plavix and the mechanism a repeat H&H is done at 2:00 a.m. and her hemoglobin has fallen even further from 10.4-9.5 with no IV fluid given. She has not been hypotensive or tachycardic through the ER stay. Will do a CT scan of her abdomen pelvis with concern for retroperitoneal bleeding. Careful exam of her abdomen and pelvis is repeated and she has no pain tenderness, developing hematoma or ecchymosis. Her overall pain level has been controlled with repeated small doses of morphine. CT scan of the abdomen does not suggest source for blood loss and specifically she does not have a retroperitoneal hematoma. At this point there is no clinical sign of bleeding, she is hemodynamically stable, pain is controlled, she will be going home with her daughter. I believe discharge home is safe. She will need follow-up for the left wrist fracture with Dr. Hansen at [facility]. We reviewed anticipated course of resolution of bruising in pain symptoms. Encouraged her to return if she has new or changing symptoms. Discharge Plan Departure Patient Disposition: Home Clinical Impression: Fall on stairs Qualifiers: Encounter type: initial encounter Qualified Code(s): W10.9XXA - Fall (on) (from) unspecified stairs and steps, initial encounter Distal radius fracture, left Qualifiers: Encounter type: initial encounter Fracture type: closed Fracture morphology: unspecified fracture morphology Qualified Code(s): S52.502A - Unspecified fracture of the lower end of left radius, initial encounter for closed fracture Chest wall contusion Qualifiers: Encounter type: initial encounter Laterality: left Qualified Code(s): S20.212A - Contusion of left front wall of thorax, initial encounter Hematoma of arm Qualifiers: Encounter type: initial encounter Laterality: left Qualified Code(s): S40.022A - Contusion of left upper arm, initial encounter Instructions: DI for Wrist Fracture, DI for Trauma Activity Restrictions/Additional Instructions: Thank you for coming in today Please expect to be sore in multiple places from your fall up the stairs today. Your workup did not suggest that there was an acute heart attack that might have precipitated the fall. There is no evidence of infection arm other medical abnormalities. You had CT scans of the head neck chest and pelvis all of which were unremarkable for any injuries due to the fall. Your red blood cell count was a bit lower initially that it was 2 months ago and was repeated and continued to seem to be falling. With CT scans and clinical exam there is no evidence of internal bleeding and your heart rate and blood pressure have been reassuring throughout your emergency room stay You are going to have a large bruise across her upper chest on the left and the arm on the left there are no broken bones under these. Your left wrist is broken and will need definitive care with an orthopedic surgeon. Please contact [facility] at [phone] to schedule a follow-up appointment for your left wrist fracture within a week For overall pain control you can use Tylenol for moderate pain and for severe pain you can use a single Percocet every 6 hours. Percocet does have narcotic in it and will exacerbate constipation. Please make sure you are using a stool softener Your prescription has been electronically sent to [facility] in [place] If you have new or worsening symptoms, please feel free to return to the emergency department Prescriptions: New oxycodone-acetaminophen 5-325 mg tablet 1 tab PO Q6H PRN (Reason: pain) 7 Days Qty: 14 RF: 0 No Action clopidogrel 75 mg Tablet 75 mg PO DAILY RF: 0 docusate sodium 100 mg Capsule 100 mg PO DAILY RF: 0 escitalopram oxalate 10 mg Tablet 10 mg PO DAILY RF: 0 digoxin 125 mcg (0.125 mg) Tablet 125 mcg PO DAILY RF: 0 potassium chloride 10 mEq Tablet Extended Release 10 meq PO DAILY RF: 0 cholecalciferol (vitamin D3) 25 mcg (1,000 unit) Tablet 25 mcg PO BID RF: 0 spironolactone 25 mg Tablet 12.5 mg PO DAILY RF: 0 atorvastatin 40 mg Tablet 40 mg PO BEDTIME RF: 0 lisinopril 5 mg Tablet 5 mg PO BID RF: 0 aspirin 81 mg Tablet 81 mg PO BID RF: 0 torsemide 20 mg Tablet 20 mg PO BID RF: 0 metformin 500 mg Tablet 500 mg PO BID RF: 0 metoprolol tartrate 100 mg Tablet 100 mg PO BID RF: 0 colestipol 1 gram Tablet 1 g PO BID RF: 0 pantoprazole 40 mg tablet,delayed release (DR/EC) 40 mg PO DAILY Qty: 30 RF: 0 ciprofloxacin HCl 250 mg tablet 250 mg PO BID Qty: 6 RF: 0
--- NOTE | 2020-08-24 20:29 | DI.RAD.S_ITS ---
PROCEDURE: XR WRIST LT MIN 3V INDICATIONS: fall/wrist pain TECHNIQUE: 4 views of the wrist were acquired. COMPARISON: [facility], CR, XR HUMERUS LT 2V, 08/24/2020, 18:49. FINDINGS: Bones: Distal radius fracture with mild impaction. Minimal displacement. No dislocation. No suspicious bony lesions. Bones are osteopenic. Scaphoid view: Question linear sclerosis at the distal pole. Soft tissues: No suspicious soft tissue calcifications. IMPRESSION: Distal radius fracture with mild impaction. Question linear sclerosis at the distal pole of the scaphoid bone. -Recommend attention on follow-up exam with scaphoid view. Bones are osteopenic. Dictated by: Juanito Presley M.D. on 08/24/2020 at 20:53 Approved by: Juanito Presley M.D. on 08/24/2020 at 20:56
[2020-08-24] MEDS: KETOROLAC 30 MG/ML VIAL 15 MG IV (20:46)
[2020-08-24] MEDS: ONDANSETRON 4 MG/2 ML INJ IV (20:46)
[2020-08-24] MEDS: OXYCODONE/ACETAMINOPHEN 5/325 TABLET 1 TAB PO (20:47)
[2020-08-24 21:01] LABS: Hematocrit 26.4 % (36-46); Hemoglobin 9.5 g/dL (12.0-16.0)
[2020-08-24 21:32] LABS: Troponin I < 0.012 ng/mL (0.01-0.034)
--- NOTE | 2020-08-24 23:39 | DI.CT.S_ITS ---
PROCEDURE: CT ABDOMEN PELVIS W CON INDICATIONS: trauma, falling h/h, TECHNIQUE: After the administration of intravenous contrast, 5 mm thick sections acquired from the diaphragm to the symphysis. 5 mm coronal and sagittal reformats were acquired. For radiation dose reduction, the following was used: automated exposure control, adjustment of mA and/or kV according to patient size. COMPARISON: [facility], CT, CT CHEST W CON, 08/24/2020, 18:40. [facility], CT, CT ABDOMEN PELVIS W CON, 05/25/2020, 0:53. FINDINGS: Image quality: Excellent. ABDOMEN: Lung bases: Right middle lobe and bibasilar scars and atelectasis. Heart size is normal. Moderate coronary artery calcification. Small hiatal hernia. Solid organs: Liver is at upper limits of normal in size and homogeneous in enhancement. Gallbladder is surgically absent. Biliary system is mildly dilated. Pancreas enhances normally. Spleen is normal in size and enhancement. Left adrenal thickening appears unchanged. Kidneys demonstrate normal size and enhancement, without hydronephrosis. Peritoneum and bowel: Stomach is contracted Bowel loops demonstrate normal wall thickness and caliber. No free fluid or air. Nodes and vessels: No retroperitoneal or mesenteric adenopathy by size criteria. Aorta and inferior vena cava are normal in size. Moderate aortic and iliac artery calcifications. Miscellaneous: No ventral hernias. PELVIS: Genitourinary: Bladder wall thickness is normal. Miscellaneous: No inguinal hernias or adenopathy. Bones: No suspicious bony lesions. Mild chronic L1 vertebral body compression fracture is again noted, unchanged. IMPRESSION: 1. No acute traumatic injuries in abdomen or pelvis. 2. Cholecystectomy. There is mild biliary dilation, likely secondary to postsurgical change. 3. Atherosclerosis. 4. Small hiatal hernia. 5. Mild chronic L1 compression fracture. Dictated by: Trista Earl M.D. on 08/25/2020 at 8:47 Approved by: Trista Earl M.D. on 08/25/2020 at 10:22
[2020-08-25] VITALS: BP 170/82; PULSE 68; RESP 21; O2SAT 96
[2020-08-25] MEDS: OXYCODONE/ACETAMINOPHEN 5/325 TABLET 1 TAB PO (01:15)
[2020-08-25 01:16] VITALS: O2SAT 99
[2020-08-25 01:17] VITALS: BP 151/66; PULSE 61; O2SAT 100
== END 2020-08-25 01:30 | disposition home or self-care (01) ==
PROVIDERS: Emergency Provider Emergency Medicine
DX: S52.502A Unspecified fracture of the lower end of left radius, initial encounter for closed fracture (principal); S20.212A Contusion of left front wall of thorax, initial encounter; S40.022A Contusion of left upper arm, initial encounter; W10.9XXA Fall (on) (from) unspecified stairs and steps, initial encounter; Z79.01 Long term (current) use of anticoagulants; Z86.73 Personal history of transient ischemic attack (TIA), and cerebral infarction without residual deficits
CPT/HCPCS: 29125; 36415; 70450; 71260; 72125; 73060; 73110; 74177; 80053; 82550; 83690; 84484; 85014; 85018; 85025; 85610; 85730; 93005; 93010; 96374; 96375; 96376; 99285; J1885; J2270; J2405; Q9967

== ENCOUNTER 2020-08-28 14:03 | Emergency (ER) | payer MEDICARE, OTHER, SELFPAY ==
[2020-05-25 04:32] VITALS: BMI 23.3
[2020-08-28] VITALS (27 sets, daily range): BP systolic 94–174; BP diastolic 51–74; PULSE 79–95; RESP 11–22; TEMP 36.9; O2SAT 93–99
--- NOTE | 2020-08-28 14:48 | DI.CT.S_ITS ---
PROCEDURE: CT HEAD/BRAIN WO CON INDICATIONS: altered, recent head injury TECHNIQUE: Noncontrast 4.5 mm thick angled axial sections acquired from the foramen magnum to the vertex, with coronal and sagittal reformats. For radiation dose reduction, the following was used: automated exposure control, adjustment of mA and/or kV according to patient size. COMPARISON: [facility], CT, CT CHEST W CON, 08/24/2020, 18:40. [facility], CT, CT HEAD/BRAIN WO CON, 08/24/2020, 18:40. FINDINGS: Image quality: Excellent. CSF spaces: Basal cisterns are patent. No extra-axial fluid collections. The ventricles are symmetric in size and shape. Brain: No intracranial bleeds or masses. There is cerebral volume loss for age, with resultant ventricular and sulcal prominence. There are periventricular and deep white matter chronic small vessel ischemic changes. There is intracranial internal carotid artery atherosclerosis. Skull and face: Calvarium and visualized facial bones appear intact, without suspicious lesions. Sinuses: Visualized sinuses and mastoids are clear. IMPRESSION: Stable head CT without evidence of an acute intracranial abnormality. Dictated by: Kenny Kwan D.O. on 08/28/2020 at 14:15 Approved by: Kenny Kwan D.O. on 08/28/2020 at 14:20
[2020-08-28 15:12] LABS: Add Manual Diff / Slide Review NO; Basophils Absolute Auto 0 /uL (0-100); Basophils Percent Auto 0.4 % (0-2); Eosinophils Absolute Auto 100 /uL (0-450); Eosinophils Percent Auto 0.7 % (2-4); Hematocrit 26.2 % (36-46); Hemoglobin 9.3 g/dL (12.0-16.0); Lymphocytes Absolute Auto 600 /uL (1100-4500); Lymphocytes Percent Auto 6.8 % (25-40); Mean Corpuscular HGB Conc 35.3 % (30-36); Mean Corpuscular Hemoglobin 30.8 PG (26-34); Mean Corpuscular Volume 87.2 fL (80-100); Monocytes Absolute Auto 500 /uL (0-900); Monocytes Percent Auto 5.6 % (3-14); Neutrophils Absolute Auto 7200 /uL (1500-7000); Neutrophils Percent Auto 86.5 % (50-75); Platelet Count 259 X10^3/uL (150-400); Red Blood Cell Count 3.01 X10^6/uL (4.0-5.2); Red Cell Distribution Width 14.4 % (11.6-14.8); White Blood Cell Count 8.3 X10^3/uL (4.5-11.0)
--- NOTE | 2020-08-28 15:19 | ED_ITS ---
HPI - Nausea/Vomiting/Diarrhea <Yonis Owens, DO - Last Filed: 08/28/20 18:32> General Chief complaint: Nausea/Vomiting/Diarrhea Stated complaint: fell saturday, out of it, unstable, confused Time Seen by Provider: 08/28/20 14:07 Source: patient and family Mode of arrival: Wheelchair Limitations: no limitations History of Present Illness HPI Narrative: 75-year-old female nonsmoker with history CHF, pancreatitis, mi and renal insufficiency with baseline creatinine of about 1.5 presents with her daughter and a chief complaint of being confused, weak and not at her cognitive baseline over the past few days. She had fallen and struck her head few days ago and had a very thorough and appropriate workup with discharge diagnosis of a distal radius fracture which had been splinted. She has had multiple episodes of vomiting, poor appetite and generalized weakness as well as the confusion mention. She has had no focal findings, blurred vision but has had some trouble finding words. She denies any chest pain or shortness of breath. MD complaint: nausea and vomiting Onset (ago): day(s) Description of Vomiting: food contents Description of Diarrhea: none Relieving factors: none Related Data Home Medications Medication Instructions Recorded Confirmed aspirin 81 mg PO BID 05/25/20 05/25/20 atorvastatin 40 mg PO BEDTIME 05/25/20 05/25/20 cholecalciferol (vitamin D3) 25 mcg PO BID 05/25/20 05/25/20 clopidogrel 75 mg PO DAILY 05/25/20 05/25/20 colestipol 1 g PO BID 05/25/20 05/25/20 digoxin 125 mcg PO DAILY 05/25/20 05/25/20 docusate sodium 100 mg PO DAILY 05/25/20 05/25/20 escitalopram oxalate 10 mg PO DAILY 05/25/20 05/25/20 lisinopril 5 mg PO BID 05/25/20 05/25/20 metformin 500 mg PO BID 05/25/20 05/25/20 metoprolol tartrate 100 mg PO BID 05/25/20 05/25/20 potassium chloride 10 meq PO DAILY 05/25/20 05/25/20 spironolactone 12.5 mg PO DAILY 05/25/20 05/25/20 torsemide 20 mg PO BID 05/25/20 05/25/20 Previous Rx's Medication Instructions Recorded ciprofloxacin HCl 250 mg PO BID #6 tab 05/25/20 pantoprazole 40 mg PO DAILY #30 tab 05/25/20 oxycodone-acetaminophen 1 tab PO Q6H PRN 7 Days #14 tab 08/25/20 Allergies Allergy/AdvReac Type Severity Reaction Status Date / Time dimenhydrinate Allergy Verified 03/03/20 13:26 [From Dramamine] diphenhydramine AdvReac Verified 08/24/20 20:33 [From Benadryl] hydrocodone AdvReac Verified 08/24/20 20:33 <Thelma Anton MD - Last Filed: 08/31/20 03:51> General Source: patient and family Mode of arrival: Wheelchair Review of Systems <Yonis Owens DO - Last Filed: 08/28/20 18:32> Constitutional Constitutional: Denies chills, Denies fatigue, Denies fever(s), Reports frequent falls, Denies lethargy and Reports weakness Eyes Eyes: Denies change in vision, Denies eye discharge, Denies irritation and Denies loss of vision ENT Ears, Nose, Mouth, and Throat: Denies change in voice, Denies dizziness, Denies neck pain, Denies sore throat and Denies throat swelling Cardiovascular Cardiovascular: Denies chest pain, Denies irregular heart rhythm, Denies lightheadedness, Denies palpitations, Denies dyspnea, Denies dyspnea on exertion and Denies orthopnea Respiratory Respiratory: Denies cough, Denies dyspnea, Denies dyspnea on exertion and Denies wheezing Gastrointestinal Gastrointestinal: Denies abdominal pain, Denies change in bowel habits, Denies diarrhea, Reports nausea and Reports vomiting Musculoskeletal Musculoskeletal: Denies neck pain and Denies numbness Integumentary/Breasts Skin/Breast: Denies pruritus, Denies erythema, Denies rash and Denies wounds Neurologic Neurologic: Denies behavioral changes, Reports confusion, Denies dizziness, Reports frequent falls, Denies loss of vision, Denies numbness and Reports weakness Psychiatric Psychiatric: Denies anxiety, Denies behavioral changes, Reports confusion, Denies depression, Denies homicidal ideation and Denies suicidal ideation Endocrine Endocrine: Denies fatigue, Denies flushing and Denies palpitations Hematologic/Lymphatic Hematologic/Lymphatic: Denies easy bruising Allergic/Immunologic Allergic/Immunologic: Denies urticaria, Denies throat swelling and Denies wheezing Patient History <Yonis Owens DO - Last Filed: 08/28/20 18:32> Medical History CHF (congestive heart failure) Diabetes mellitus type 2 in obese Hyperlipidemia Hypertension Myocardial infarction Plaque psoriasis Surgical History History of appendectomy History of bilateral hip replacements History of cholecystectomy History of left knee surgery History of surgery on right wrist Family History Mother Congestive heart failure Brother Congestive heart failure Social History household members: family Smoking Status: Never smoker alcohol intake: never <Thelma Anton MD - Last Filed: 08/31/20 03:51> Smoking Status: Never smoker Substance Use Type: does not use Exam <Yonis Owens DO - Last Filed: 08/28/20 18:32> Narrative Exam Narrative: GENERAL: [75] year old patient appears stated age. Well- nourished, well-developed patient, GCS 14 HEAD: Atraumatic. Normocephalic. EYES: Pupils equal round and reactive. Extraocular motions intact. No scleral icterus. No injection or drainage. ENT: Dry mucous membranes Nose without bleeding, purulent drainage. Throat without erythema, tonsillar hypertrophy or exudate. Airway patent. NECK: Trachea midline. Non tender CARDIOVASCULAR: Regular rate and rhythm without murmurs, gallops, or rubs. RESPIRATORY: Clear to auscultation. Breath sounds equal bilaterally. No wheezes, rales, or rhonchi. GASTROINTESTINAL: Abdomen soft, non-tender, nondistended. EXTREMITIES: No edema or joint tenderness. BACK: Nontender without deformity or crepitance. No flank tenderness. NEURO: AOx3. Slow, purposeful responses SKIN: No rash or erythema of visible areas, poor skin turgor Initial Vital Signs Initial Vital Signs: Vital Signs Temperature 98.4 F 08/28/20 14:18 Pulse Rate 91 H 08/28/20 14:18 Respiratory Rate 20 08/28/20 14:18 Blood Pressure 108/69 08/28/20 14:18 Pulse Oximetry 96 08/28/20 14:18 <Thelma Anton MD - Last Filed: 08/31/20 03:51> Initial Vital Signs Initial Vital Signs: Vital Signs Temperature 98.4 F 08/28/20 14:18 Pulse Rate 91 H 08/28/20 14:18 Respiratory Rate 20 08/28/20 14:18 Blood Pressure 108/69 08/28/20 14:18 Pulse Oximetry 96 08/28/20 14:18 Course <Yonis Owens DO - Last Filed: 08/28/20 18:32> Orders Ordered: Discontinued Medications Dextrose (Dextrose 50 % In Water 25 Gm/50 Ml Syringe) 25 gm IV NOW ONE Stop: 08/28/20 15:36 Last Admin: 08/28/20 16:08 Dose: 25 gm Documented by: NAYA Dextrose (Dextrose 50 % In Water 25 Gm/50 Ml Syringe) 25 gm IV NOW ONE Stop: 08/28/20 16:53 Last Admin: 08/28/20 17:01 Dose: 25 gm Documented by: NAYA Furosemide (Furosemide 40 Mg/4 Ml Vial) 40 mg IV NOW ONE Stop: 08/28/20 15:36 Last Admin: 08/28/20 16:08 Dose: 40 mg Documented by: NAYA Sodium Chloride (Normal Saline 0.9%) 1,000 mls @ 1,000 mls/hr IV BOLUS ONE Stop: 08/28/20 16:34 Last Infusion: 08/28/20 17:45 Dose: 0 mls/hr Documented by: Admin: 08/28/20 16:09 Dose: 1,000 mls/hr Documented by: NAYA Sodium Chloride (Normal Saline 0.9%) 1,000 mls @ 1,000 mls/hr IV BOLUS ONE Stop: 08/28/20 17:51 Last Infusion: 08/28/20 18:22 Dose: 0 mls/hr Documented by: Admin: 08/28/20 17:02 Dose: 1,000 mls/hr Documented by: NAYA Calcium Gluconate 4.65 meq/ (Sodium Chloride) 60 mls @ 180 mls/hr IV NOW ONE Stop: 08/28/20 17:11 Last Infusion: 08/28/20 17:45 Dose: 0 mls/hr Documented by: Admin: 08/28/20 17:01 Dose: 180 mls/hr Documented by: NAYA Insulin Human Regular (Insulin Regular 100 Unit/Ml 3 Ml Vial) 5 unit IV NOW ONE Stop: 08/28/20 15:46 Last Admin: 08/28/20 16:08 Dose: 5 unit Documented by: NAYA Cosigned by: RITA Insulin Human Regular (Insulin Regular 100 Unit/Ml 3 Ml Vial) 5 unit IV NOW ONE Stop: 08/28/20 16:53 Last Admin: 08/28/20 17:02 Dose: 5 unit Documented by: NAYA Cosigned by: RITA Ondansetron HCl (Ondansetron 4 Mg/2 Ml Inj) 4 mg IV NOW ONE Stop: 08/28/20 16:06 Last Admin: 08/28/20 16:09 Dose: 4 mg Documented by: NAYA Sodium Bicarbonate (Sodium Bicarb 8.4% Syringe) 50 meq IV NOW ONE Stop: 08/28/20 16:53 Last Admin: 08/28/20 17:01 Dose: 50 meq Documented by: NAYA Consultations Consultation #1: Discussion with Nephrology upon receipt of initial set of labs. He is on board with are administration of fluids, use of insulin and dextrose and recommends an amp of sodium bicarb and an amp of calcium gluconate. Request call back if renal ultrasound demonstrates any obstructive process Consultation #2: Hospitalist at [facility] happy to Vital Signs Vital signs: Vital Signs - 8 hr 08/28/20 14:18 08/28/20 15:22 08/28/20 15:30 Temperature 98.4 F Pulse Rate 91 H 79 81 Respiratory Rate 20 Blood Pressure 108/69 154/66 H Pulse Oximetry 96 94 97 08/28/20 16:00 08/28/20 16:23 08/28/20 16:30 Temperature Pulse Rate 85 86 85 Respiratory Rate 11 L 12 Blood Pressure 174/74 H 141/63 H Pulse Oximetry 99 97 97 08/28/20 16:31 08/28/20 17:00 08/28/20 17:01 Temperature Pulse Rate 86 94 H 95 H Respiratory Rate 11 L 16 Blood Pressure 155/67 H 113/53 L Pulse Oximetry 95 94 96 08/28/20 17:30 08/28/20 17:34 08/28/20 17:46 Temperature Pulse Rate 94 H 93 H 92 H Respiratory Rate 16 13 19 Blood Pressure 167/72 H 155/67 H 125/58 L Pulse Oximetry 98 98 94 08/28/20 18:00 Temperature Pulse Rate 91 H Respiratory Rate 17 Blood Pressure 124/58 L Pulse Oximetry 93 <Thelma Anton MD - Last Filed: 08/31/20 03:51> Orders Ordered: Discontinued Medications Dextrose (Dextrose 50 % In Water 25 Gm/50 Ml Syringe) 25 gm IV NOW ONE Stop: 08/28/20 15:36 Last Admin: 08/28/20 16:08 Dose: 25 gm Documented by: NAYA Dextrose (Dextrose 50 % In Water 25 Gm/50 Ml Syringe) 25 gm IV NOW ONE Stop: 08/28/20 16:53 Last Admin: 08/28/20 17:01 Dose: 25 gm Documented by: NAYA Furosemide (Furosemide 40 Mg/4 Ml Vial) 40 mg IV NOW ONE Stop: 08/28/20 15:36 Last Admin: 08/28/20 16:08 Dose: 40 mg Documented by: NAYA Sodium Chloride (Normal Saline 0.9%) 1,000 mls @ 1,000 mls/hr IV BOLUS ONE Stop: 08/28/20 16:34 Last Infusion: 08/28/20 17:45 Dose: 0 mls/hr Documented by: Admin: 08/28/20 16:09 Dose: 1,000 mls/hr Documented by: NAYA Sodium Chloride (Normal Saline 0.9%) 1,000 mls @ 1,000 mls/hr IV BOLUS ONE Stop: 08/28/20 17:51 Last Infusion: 08/28/20 18:22 Dose: 0 mls/hr Documented by: Admin: 08/28/20 17:02 Dose: 1,000 mls/hr Documented by: NAYA Calcium Gluconate 4.65 meq/ (Sodium Chloride) 60 mls @ 180 mls/hr IV NOW ONE Stop: 08/28/20 17:11 Last Infusion: 08/28/20 17:45 Dose: 0 mls/hr Documented by: Admin: 08/28/20 17:01 Dose: 180 mls/hr Documented by: NAYA Insulin Human Regular (Insulin Regular 100 Unit/Ml 3 Ml Vial) 5 unit IV NOW ONE Stop: 08/28/20 15:46 Last Admin: 08/28/20 16:08 Dose: 5 unit Documented by: NAYA Cosigned by: RITA Insulin Human Regular (Insulin Regular 100 Unit/Ml 3 Ml Vial) 5 unit IV NOW ONE Stop: 08/28/20 16:53 Last Admin: 08/28/20 17:02 Dose: 5 unit Documented by: NAYA Cosigned by: RITA Ondansetron HCl (Ondansetron 4 Mg/2 Ml Inj) 4 mg IV NOW ONE Stop: 08/28/20 16:06 Last Admin: 08/28/20 16:09 Dose: 4 mg Documented by: NAYA Sodium Bicarbonate (Sodium Bicarb 8.4% Syringe) 50 meq IV NOW ONE Stop: 08/28/20 16:53 Last Admin: 08/28/20 17:01 Dose: 50 meq Documented by: NAYA Vital Signs Vital signs: Vital Signs - 8 hr 08/28/20 14:18 08/28/20 15:22 08/28/20 15:30 Temperature 98.4 F Pulse Rate 91 H 79 81 Respiratory Rate 20 Blood Pressure 108/69 154/66 H Pulse Oximetry 96 94 97 08/28/20 16:00 08/28/20 16:23 08/28/20 16:30 Temperature Pulse Rate 85 86 85 Respiratory Rate 11 L 12 Blood Pressure 174/74 H 141/63 H Pulse Oximetry 99 97 97 08/28/20 16:31 08/28/20 17:00 08/28/20 17:01 Temperature Pulse Rate 86 94 H 95 H Respiratory Rate 11 L 16 Blood Pressure 155/67 H 113/53 L Pulse Oximetry 95 94 96 08/28/20 17:30 08/28/20 17:34 08/28/20 17:46 Temperature Pulse Rate 94 H 93 H 92 H Respiratory Rate 16 13 19 Blood Pressure 167/72 H 155/67 H 125/58 L Pulse Oximetry 98 98 94 08/28/20 18:00 Temperature Pulse Rate 91 H Respiratory Rate 17 Blood Pressure 124/58 L Pulse Oximetry 93 MDM - Nausea/Vomiting/Diarrhea <Yonis Owens DO - Last Filed: 08/28/20 18:32> Lab Data Result diagrams: 08/28/20 15:00 08/28/20 17:34 Labs: Lab Results 08/28/20 08/28/20 08/28/20 Range/Units 15:00 15:00 15:00 WBC 8.3 (4.5-11.0) X10^3/uL RBC 3.01 L (4.0-5.2) X10^6/uL Hgb 9.3 L (12.0-16.0) g/dL Hct 26.2 L (36-46) % MCV 87.2 (80-100) fL MCH 30.8 (26-34) PG MCHC 35.3 (30-36) % RDW 14.4 (11.6-14.8) % Plt Count 259 (150-400) X10^3/uL Neut % (Auto) 86.5 H (50-75) % Lymph % (Auto) 6.8 L (25-40) % Woodward % (Auto) 5.6 (3-14) % Eos % (Auto) 0.7 L (2-4) % Baso % (Auto) 0.4 (0-2) % Neut # (Auto) 7200 H (0775-3298) /uL Lymph # (Auto) 600 L (4683-9147) /uL Woodward # (Auto) 500 (0-900) /uL Eos # (Auto) 100 (0-450) /uL Baso # (Auto) 0 (0-100) /uL VBG pH (7.33-7.43) VBG pCO2 (45-50) mmHg VBG pO2 (35-45) mmHg VBG HCO3 (23-28) mmol/L VBG Total CO2 (24-29) mmol/L VBG O2 Saturation (70-75) % VBG Base Excess (0-4) mmol/L Sodium 121 L (137-145) mmol/L Potassium 6.5 H* D (3.4-5.1) mmol/L Chloride 88 L (98-107) mmol/L Carbon Dioxide 21 L (22-32) mmol/L BUN 62 H (7-17) mg/dL Creatinine 6.48 H (0.52-1.04) mg/dL Estimated GFR 6.3 L (>60) mL/min BUN/Creatinine Ratio 9.6 (6-22) Glucose 153 H D (80-110) mg/dL Calcium 8.1 L (8.4-10.2) mg/dL Phosphorus (2.8-4.1) mg/dL Magnesium (1.6-2.3) mg/dL Total Bilirubin 0.3 (0.2-1.3) mg/dL AST 23 (14-36) IU/L ALT 13 (<35) IU/L Alkaline Phosphatase 202 H (38-126) U/L Total Creatine Kinase 87 (30-135) U/L CK-MB (CK-2) TNP CK-MB (CK-2) Rel Index TNP Troponin I 0.028 (0.01-0.034) ng/mL Total Protein 6.3 (6.3-8.2) g/dL Albumin 3.3 L (3.5-5.0) g/dL Globulin 3.0 (1.7-4.1) g/dL Albumin/Globulin Ratio 1.1 (1.0-2.8) Urine Color Urine Appearance Urine pH (4.5-8.0) Ur Specific Milbank (1.000-1.035) Urine Protein (Negative) Urine Glucose (UA) (Negative) g/dL Urine Ketones (NEGATIVE) Urine Occult Blood (Negative) Urine Nitrate (Negative) Urine Bilirubin (NEGATIVE) Urine Urobilinogen (0.2) E.U./dL Ur Leukocyte Esterase (NEGATIVE) Urine RBC (0-5/HPF) Urine WBC (0-5/HPF) Ur Squamous Epith Cells (0-5/HPF) Amorphous Sediment Urine Bacteria (None) Ur Culture Indicated? Ur Random Sodium (30-90) mmol/L Urine Creatinine mg/dL SARS-CoV-2 (PCR) (Negative) 08/28/20 08/28/20 08/28/20 Range/Units 15:00 16:00 16:00 WBC (4.5-11.0) X10^3/uL RBC (4.0-5.2) X10^6/uL Hgb (12.0-16.0) g/dL Hct (36-46) % MCV (80-100) fL MCH (26-34) PG MCHC (30-36) % RDW (11.6-14.8) % Plt Count (150-400) X10^3/uL Neut % (Auto) (50-75) % Lymph % (Auto) (25-40) % Woodward % (Auto) (3-14) % Eos % (Auto) (2-4) % Baso % (Auto) (0-2) % Neut # (Auto) (9034-2837) /uL Lymph # (Auto) (1917-4190) /uL Woodward # (Auto) (0-900) /uL Eos # (Auto) (0-450) /uL Baso # (Auto) (0-100) /uL VBG pH (7.33-7.43) VBG pCO2 (45-50) mmHg VBG pO2 (35-45) mmHg VBG HCO3 (23-28) mmol/L VBG Total CO2 (24-29) mmol/L VBG O2 Saturation (70-75) % VBG Base Excess (0-4) mmol/L Sodium (137-145) mmol/L Potassium (3.4-5.1) mmol/L Chloride (98-107) mmol/L Carbon Dioxide (22-32) mmol/L BUN (7-17) mg/dL Creatinine (0.52-1.04) mg/dL Estimated GFR (>60) mL/min BUN/Creatinine Ratio (6-22) Glucose (80-110) mg/dL Calcium (8.4-10.2) mg/dL Phosphorus 7.1 H (2.8-4.1) mg/dL Magnesium 1.5 L (1.6-2.3) mg/dL Total Bilirubin (0.2-1.3) mg/dL AST (14-36) IU/L ALT (<35) IU/L Alkaline Phosphatase (38-126) U/L Total Creatine Kinase (30-135) U/L CK-MB (CK-2) CK-MB (CK-2) Rel Index Troponin I (0.01-0.034) ng/mL Total Protein (6.3-8.2) g/dL Albumin (3.5-5.0) g/dL Globulin (1.7-4.1) g/dL Albumin/Globulin Ratio (1.0-2.8) Urine Color Yellow Urine Appearance Sl cloudy Urine pH 5.0 (4.5-8.0) Ur Specific Milbank 1.010 (1.000-1.035) Urine Protein Trace H (Negative) Urine Glucose (UA) Trace H (Negative) g/dL Urine Ketones Negative (NEGATIVE) Urine Occult Blood 3+ H (Negative) Urine Nitrate Negative (Negative) Urine Bilirubin Negative (NEGATIVE) Urine Urobilinogen 0.2 (0.2) E.U./dL Ur Leukocyte Esterase Trace H (NEGATIVE) Urine RBC 5-10/hpf H (0-5/HPF) Urine WBC 5-10/hpf H (0-5/HPF) Ur Squamous Epith Cells 1-5 /hpf (0-5/HPF) Amorphous Sediment 2+ Urine Bacteria Few (2-10) H (None) Ur Culture Indicated? Specimen cultured Ur Random Sodium 19 L (30-90) mmol/L Urine Creatinine 113.1 mg/dL SARS-CoV-2 (PCR) (Negative) 08/28/20 08/28/20 08/28/20 Range/Units 16:25 16:52 17:34 WBC (4.5-11.0) X10^3/uL RBC (4.0-5.2) X10^6/uL Hgb (12.0-16.0) g/dL Hct (36-46) % MCV (80-100) fL MCH (26-34) PG MCHC (30-36) % RDW (11.6-14.8) % Plt Count (150-400) X10^3/uL Neut % (Auto) (50-75) % Lymph % (Auto) (25-40) % Woodward % (Auto) (3-14) % Eos % (Auto) (2-4) % Baso % (Auto) (0-2) % Neut # (Auto) (5059-7046) /uL Lymph # (Auto) (6381-6737) /uL Woodward # (Auto) (0-900) /uL Eos # (Auto) (0-450) /uL Baso # (Auto) (0-100) /uL VBG pH 7.36 (7.33-7.43) VBG pCO2 39.5 L (45-50) mmHg VBG pO2 26 L (35-45) mmHg VBG HCO3 22 L (23-28) mmol/L VBG Total CO2 23 L (24-29) mmol/L VBG O2 Saturation 45 L (70-75) % VBG Base Excess -3.0 L (0-4) mmol/L Sodium 123 L (137-145) mmol/L Potassium 4.7 D (3.4-5.1) mmol/L Chloride 88 L (98-107) mmol/L Carbon Dioxide 23 (22-32) mmol/L BUN 60 H (7-17) mg/dL Creatinine 6.20 H (0.52-1.04) mg/dL Estimated GFR 6.6 L (>60) mL/min BUN/Creatinine Ratio 9.7 (6-22) Glucose 220 H (80-110) mg/dL Calcium 7.7 L (8.4-10.2) mg/dL Phosphorus (2.8-4.1) mg/dL Magnesium (1.6-2.3) mg/dL Total Bilirubin (0.2-1.3) mg/dL AST (14-36) IU/L ALT (<35) IU/L Alkaline Phosphatase (38-126) U/L Total Creatine Kinase (30-135) U/L CK-MB (CK-2) CK-MB (CK-2) Rel Index Troponin I 0.024 (0.01-0.034) ng/mL Total Protein (6.3-8.2) g/dL Albumin (3.5-5.0) g/dL Globulin (1.7-4.1) g/dL Albumin/Globulin Ratio (1.0-2.8) Urine Color Urine Appearance Urine pH (4.5-8.0) Ur Specific Milbank (1.000-1.035) Urine Protein (Negative) Urine Glucose (UA) (Negative) g/dL Urine Ketones (NEGATIVE) Urine Occult Blood (Negative) Urine Nitrate (Negative) Urine Bilirubin (NEGATIVE) Urine Urobilinogen (0.2) E.U./dL Ur Leukocyte Esterase (NEGATIVE) Urine RBC (0-5/HPF) Urine WBC (0-5/HPF) Ur Squamous Epith Cells (0-5/HPF) Amorphous Sediment Urine Bacteria (None) Ur Culture Indicated? Ur Random Sodium (30-90) mmol/L Urine Creatinine mg/dL SARS-CoV-2 (PCR) Negative (Negative) Point of Care Testing Glucose POC 168 Imaging Data Renal US: Radiologist's Impression: Chart Viewer Diagnostics DATE TYPE STATUS REF RANGE/AUTHOR Hx Today 15:35 Kenny Kwan Today 14:48 Kenny Kwan 08/24/20 23:39 Karrie Earl 08/24/20 20:29 Call,Juanito 08/24/20 18:46 Call,Juanito 08/24/20 18:46 Call,Juanito 08/24/20 18:31 Call,Juanito 08/24/20 18:31 Call,Juanito 05/25/20 13:27 Paliwal,Vidhu 05/25/20 13:27 Paliwal,Vidhu 05/25/20 03:39 05/25/20 00:50 Bustillos,Taiwo 05/25/20 00:15 Taiwo Bustillos 03/03/20 13:32 Jcarlos Angel Isabelle S 75, F0 1945 REG ER, Main ED R12 72.575kg Nausea/Vomiting/Diarrhea Search Chart No Data to Display Total Unconfirmed ONSET Today 18:00 Frances Foley 75 F 1945 [place], [place] [address]Ultrasound ReportSigned Patient: Frances Foley SMR#: [id number]: 1945cct:[id number]/Sex: 75 / FDate of Service: 08/28/20Loc: EDAccession Number: [id number] Procedure: US renal complete Ordering Provider: Yonis Owens D.O. PROCEDURE: US RENAL COMPLETE INDICATIONS: acute renal failure TECHNIQUE: Real-time scanning was performed of the kidneys and bladder, with image documentation. COMPARISON: None. FINDINGS: Kidneys: Kidneys are normal in size. Right kidney measures 10.3 cm long; left kidney measures 11.1 cm long. Right renal cortical thickness is 0.8 cm; left renal cortical thickness is 1.0 cm. Renal cortical echotexture is normal. No hydronephrosis or nephrolithiasis. No suspicious solid mass lesions. Bladder: Pre-void bladder volume is 40 mL. Pre-void images demonstrate no intraluminal masses or stones. On pre-void images, no ureteral jets are noted with color Doppler interrogation. (Of note, ureteral jets may not be detectable in up to 25% of cases due to insufficient differences in specific gravity between ureteral and bladder urine). Miscellaneous: No free pelvic fluid. IMPRESSION: Mild right greater than left cortical thinning, otherwise no evidence of hydronephrosis or other suspicious abnormality. Unremarkable appearance of the bladder within limits of only mild distension. Dictated by: Kenny Kwan D.O. on 08/28/2020 at 16:09 Approved by: Kenny Kwan D.O. on 08/28/2020 at 16:12 ECG Data Interpretation: Normal sinus rhythm, no ectopy, no widening of the QRS or peaked T-waves. No ST segmental elevations. <Thelma Anton MD - Last Filed: 08/31/20 03:51> Lab Data Labs: Lab Results 08/28/20 08/28/20 08/28/20 Range/Units 15:00 15:00 15:00 WBC 8.3 (4.5-11.0) X10^3/uL RBC 3.01 L (4.0-5.2) X10^6/uL Hgb 9.3 L (12.0-16.0) g/dL Hct 26.2 L (36-46) % MCV 87.2 (80-100) fL MCH 30.8 (26-34) PG MCHC 35.3 (30-36) % RDW 14.4 (11.6-14.8) % Plt Count 259 (150-400) X10^3/uL Neut % (Auto) 86.5 H (50-75) % Lymph % (Auto) 6.8 L (25-40) % Woodward % (Auto) 5.6 (3-14) % Eos % (Auto) 0.7 L (2-4) % Baso % (Auto) 0.4 (0-2) % Neut # (Auto) 7200 H (2542-4163) /uL Lymph # (Auto) 600 L (4114-6939) /uL Woodward # (Auto) 500 (0-900) /uL Eos # (Auto) 100 (0-450) /uL Baso # (Auto) 0 (0-100) /uL VBG pH (7.33-7.43) VBG pCO2 (45-50) mmHg VBG pO2 (35-45) mmHg VBG HCO3 (23-28) mmol/L VBG Total CO2 (24-29) mmol/L VBG O2 Saturation (70-75) % VBG Base Excess (0-4) mmol/L Sodium 121 L (137-145) mmol/L Potassium 6.5 H* D (3.4-5.1) mmol/L Chloride 88 L (98-107) mmol/L Carbon Dioxide 21 L (22-32) mmol/L BUN 62 H (7-17) mg/dL Creatinine 6.48 H (0.52-1.04) mg/dL Estimated GFR 6.3 L (>60) mL/min BUN/Creatinine Ratio 9.6 (6-22) Glucose 153 H D (80-110) mg/dL Calcium 8.1 L (8.4-10.2) mg/dL Phosphorus (2.8-4.1) mg/dL Magnesium (1.6-2.3) mg/dL Total Bilirubin 0.3 (0.2-1.3) mg/dL AST 23 (14-36) IU/L ALT 13 (<35) IU/L Alkaline Phosphatase 202 H (38-126) U/L Total Creatine Kinase 87 (30-135) U/L CK-MB (CK-2) TNP CK-MB (CK-2) Rel Index TNP Troponin I 0.028 (0.01-0.034) ng/mL Total Protein 6.3 (6.3-8.2) g/dL Albumin 3.3 L (3.5-5.0) g/dL Globulin 3.0 (1.7-4.1) g/dL Albumin/Globulin Ratio 1.1 (1.0-2.8) Urine Color Urine Appearance Urine pH (4.5-8.0) Ur Specific [place] (1.000-1.035) Urine Protein (Negative) Urine Glucose (UA) (Negative) g/dL Urine Ketones (NEGATIVE) Urine Occult Blood (Negative) Urine Nitrate (Negative) Urine Bilirubin (NEGATIVE) Urine Urobilinogen (0.2) E.U./dL Ur Leukocyte Esterase (NEGATIVE) Urine RBC (0-5/HPF) Urine WBC (0-5/HPF) Ur Squamous Epith Cells (0-5/HPF) Amorphous Sediment Urine Bacteria (None) Ur Culture Indicated? Ur Random Sodium (30-90) mmol/L Urine Creatinine mg/dL SARS-CoV-2 (PCR) (Negative) 08/28/20 08/28/20 08/28/20 Range/Units 15:00 16:00 16:00 WBC (4.5-11.0) X10^3/uL RBC (4.0-5.2) X10^6/uL Hgb (12.0-16.0) g/dL Hct (36-46) % MCV (80-100) fL MCH (26-34) PG MCHC (30-36) % RDW (11.6-14.8) % Plt Count (150-400) X10^3/uL Neut % (Auto) (50-75) % Lymph % (Auto) (25-40) % [place] % (Auto) (3-14) % Eos % (Auto) (2-4) % Baso % (Auto) (0-2) % Neut # (Auto) (9250-5354) /uL Lymph # (Auto) (0814-5530) /uL [place]ward # (Auto) (0-900) /uL Eos # (Auto) (0-450) /uL Baso # (Auto) (0-100) /uL VBG pH (7.33-7.43) VBG pCO2 (45-50) mmHg VBG pO2 (35-45) mmHg VBG HCO3 (23-28) mmol/L VBG Total CO2 (24-29) mmol/L VBG O2 Saturation (70-75) % VBG Base Excess (0-4) mmol/L Sodium (137-145) mmol/L Potassium (3.4-5.1) mmol/L Chloride (98-107) mmol/L Carbon Dioxide (22-32) mmol/L BUN (7-17) mg/dL Creatinine (0.52-1.04) mg/dL Estimated GFR (>60) mL/min BUN/Creatinine Ratio (6-22) Glucose (80-110) mg/dL Calcium (8.4-10.2) mg/dL Phosphorus 7.1 H (2.8-4.1) mg/dL Magnesium 1.5 L (1.6-2.3) mg/dL Total Bilirubin (0.2-1.3) mg/dL AST (14-36) IU/L ALT (<35) IU/L Alkaline Phosphatase (38-126) U/L Total Creatine Kinase (30-135) U/L CK-MB (CK-2) CK-MB (CK-2) Rel Index Troponin I (0.01-0.034) ng/mL Total Protein (6.3-8.2) g/dL Albumin (3.5-5.0) g/dL Globulin (1.7-4.1) g/dL Albumin/Globulin Ratio (1.0-2.8) Urine Color Yellow Urine Appearance Sl cloudy Urine pH 5.0 (4.5-8.0) Ur Specific [place] 1.010 (1.000-1.035) Urine Protein Trace H (Negative) Urine Glucose (UA) Trace H (Negative) g/dL Urine Ketones Negative (NEGATIVE) Urine Occult Blood 3+ H (Negative) Urine Nitrate Negative (Negative) Urine Bilirubin Negative (NEGATIVE) Urine Urobilinogen 0.2 (0.2) E.U./dL Ur Leukocyte Esterase Trace H (NEGATIVE) Urine RBC 5-10/hpf H (0-5/HPF) Urine WBC 5-10/hpf H (0-5/HPF) Ur Squamous Epith Cells 1-5 /hpf (0-5/HPF) Amorphous Sediment 2+ Urine Bacteria Few (2-10) H (None) Ur Culture Indicated? Specimen cultured Ur Random Sodium 19 L (30-90) mmol/L Urine Creatinine 113.1 mg/dL SARS-CoV-2 (PCR) (Negative) 08/28/20 08/28/20 08/28/20 Range/Units 16:25 16:52 17:34 WBC (4.5-11.0) X10^3/uL RBC (4.0-5.2) X10^6/uL Hgb (12.0-16.0) g/dL Hct (36-46) % MCV (80-100) fL MCH (26-34) PG MCHC (30-36) % RDW (11.6-14.8) % Plt Count (150-400) X10^3/uL Neut % (Auto) (50-75) % Lymph % (Auto) (25-40) % [place] % (Auto) (3-14) % Eos % (Auto) (2-4) % Baso % (Auto) (0-2) % Neut # (Auto) (3217-7094) /uL Lymph # (Auto) (7998-9319) /uL [place] # (Auto) (0-900) /uL Eos # (Auto) (0-450) /uL Baso # (Auto) (0-100) /uL VBG pH 7.36 (7.33-7.43) VBG pCO2 39.5 L (45-50) mmHg VBG pO2 26 L (35-45) mmHg VBG HCO3 22 L (23-28) mmol/L VBG Total CO2 23 L (24-29) mmol/L VBG O2 Saturation 45 L (70-75) % VBG Base Excess -3.0 L (0-4) mmol/L Sodium 123 L (137-145) mmol/L Potassium 4.7 D (3.4-5.1) mmol/L Chloride 88 L (98-107) mmol/L Carbon Dioxide 23 (22-32) mmol/L BUN 60 H (7-17) mg/dL Creatinine 6.20 H (0.52-1.04) mg/dL Estimated GFR 6.6 L (>60) mL/min BUN/Creatinine Ratio 9.7 (6-22) Glucose 220 H (80-110) mg/dL Calcium 7.7 L (8.4-10.2) mg/dL Phosphorus (2.8-4.1) mg/dL Magnesium (1.6-2.3) mg/dL Total Bilirubin (0.2-1.3) mg/dL AST (14-36) IU/L ALT (<35) IU/L Alkaline Phosphatase (38-126) U/L Total Creatine Kinase (30-135) U/L CK-MB (CK-2) CK-MB (CK-2) Rel Index Troponin I 0.024 (0.01-0.034) ng/mL Total Protein (6.3-8.2) g/dL Albumin (3.5-5.0) g/dL Globulin (1.7-4.1) g/dL Albumin/Globulin Ratio (1.0-2.8) Urine Color Urine Appearance Urine pH (4.5-8.0) Ur Specific [place] (1.000-1.035) Urine Protein (Negative) Urine Glucose (UA) (Negative) g/dL Urine Ketones (NEGATIVE) Urine Occult Blood (Negative) Urine Nitrate (Negative) Urine Bilirubin (NEGATIVE) Urine Urobilinogen (0.2) E.U./dL Ur Leukocyte Esterase (NEGATIVE) Urine RBC (0-5/HPF) Urine WBC (0-5/HPF) Ur Squamous Epith Cells (0-5/HPF) Amorphous Sediment Urine Bacteria (None) Ur Culture Indicated? Ur Random Sodium (30-90) mmol/L Urine Creatinine mg/dL SARS-CoV-2 (PCR) Negative (Negative) Point of Care Testing Glucose POC 168 Discharge Plan Departure Patient Disposition: [facility] Clinical Impression: Acute hyperkalemia, Acute hyponatremia Acute renal failure Qualifiers: Acute renal failure type: unspecified Qualified Code(s): N17.9 - Acute kidney failure, unspecified Prescriptions: No Action oxycodone-acetaminophen 5-325 mg tablet 1 tab PO Q6H PRN (Reason: pain) 7 Days Qty: 14 RF: 0 clopidogrel 75 mg Tablet 75 mg PO DAILY RF: 0 docusate sodium 100 mg Capsule 100 mg PO DAILY RF: 0 escitalopram oxalate 10 mg Tablet 10 mg PO DAILY RF: 0 digoxin 125 mcg (0.125 mg) Tablet 125 mcg PO DAILY RF: 0 potassium chloride 10 mEq Tablet Extended Release 10 meq PO DAILY RF: 0 cholecalciferol (vitamin D3) 25 mcg (1,000 unit) Tablet 25 mcg PO BID RF: 0 spironolactone 25 mg Tablet 12.5 mg PO DAILY RF: 0 atorvastatin 40 mg Tablet 40 mg PO BEDTIME RF: 0 lisinopril 5 mg Tablet 5 mg PO BID RF: 0 aspirin 81 mg Tablet 81 mg PO BID RF: 0 torsemide 20 mg Tablet 20 mg PO BID RF: 0 metformin 500 mg Tablet 500 mg PO BID RF: 0 metoprolol tartrate 100 mg Tablet 100 mg PO BID RF: 0 colestipol 1 gram Tablet 1 g PO BID RF: 0 pantoprazole 40 mg tablet,delayed release (DR/EC) 40 mg PO DAILY Qty: 30 RF: 0 ciprofloxacin HCl 250 mg tablet 250 mg PO BID Qty: 6 RF: 0
[2020-08-28 15:24] LABS: Alanine Aminotransferase 13 IU/L (<35); Albumin 3.3 g/dL (3.5-5.0); Albumin Globulin Ratio 1.1 (1.0-2.8); Alkaline Phosphatase 202 U/L (38-126); Aspartate Aminotransferase 23 IU/L (14-36); BUN Creatinine Ratio 9.6 (6-22); Bilirubin Total 0.3 mg/dL (0.2-1.3); Blood Urea Nitrogen 62 mg/dL (7-17); Calcium 8.1 mg/dL (8.4-10.2); Carbon Dioxide 21 mmol/L (22-32); Chloride 88 mmol/L (98-107); Creatine Kinase 87 U/L (30-135); Estimated Glomerular Filt Rate 6.3 mL/min (>60); Glucose 153 mg/dL (80-110); HEMOLYSIS < 15 (0-50); Sodium 121 mmol/L (137-145); Total Protein 6.3 g/dL (6.3-8.2)
[2020-08-28 15:33] LABS: Potassium 6.5 mmol/L (3.4-5.1)
[2020-08-28 15:35] LABS: Troponin I 0.028 ng/mL (0.01-0.034)
--- NOTE | 2020-08-28 15:35 | DI.US.S_ITS ---
PROCEDURE: US RENAL COMPLETE INDICATIONS: acute renal failure TECHNIQUE: Real-time scanning was performed of the kidneys and bladder, with image documentation. COMPARISON: None. FINDINGS: Kidneys: Kidneys are normal in size. Right kidney measures 10.3 cm long; left kidney measures 11.1 cm long. Right renal cortical thickness is 0.8 cm; left renal cortical thickness is 1.0 cm. Renal cortical echotexture is normal. No hydronephrosis or nephrolithiasis. No suspicious solid mass lesions. Bladder: Pre-void bladder volume is 40 mL. Pre-void images demonstrate no intraluminal masses or stones. On pre-void images, no ureteral jets are noted with color Doppler interrogation. (Of note, ureteral jets may not be detectable in up to 25% of cases due to insufficient differences in specific gravity between ureteral and bladder urine). Miscellaneous: No free pelvic fluid. IMPRESSION: Mild right greater than left cortical thinning, otherwise no evidence of hydronephrosis or other suspicious abnormality. Unremarkable appearance of the bladder within limits of only mild distension. Dictated by: Kenny Kwan D.O. on 08/28/2020 at 16:09 Approved by: Kenny Kwan D.O. on 08/28/2020 at 16:12
[2020-08-28 15:53] LABS: Magnesium 1.5 mg/dL (1.6-2.3); Phosphorous 7.1 mg/dL (2.8-4.1)
[2020-08-28] MEDS: INSULIN REGULAR 100 UNIT/ML 3 ML VIAL IV ×2 (16:08→17:02)
[2020-08-28] MEDS: FUROSEMIDE 40 MG/4 ML VIAL IV (16:08)
[2020-08-28] MEDS: DEXTROSE 50 % IN WATER 25 GM/50 ML SYRINGE IV ×2 (16:08→17:01)
[2020-08-28] MEDS: ONDANSETRON 4 MG/2 ML INJ IV (16:09)
[2020-08-28] MEDS: SODIUM CHLORIDE 0.9% 1,000 ML 1000 ML IV ×2 (16:09→17:02)
[2020-08-28 16:11] LABS: Appearance Urine UA SL CLOUDY; Bilirubin Urine UA NEGATIVE (NEGATIVE); Color Urine UA YELLOW; Glucose Urine UA TRACE g/dL (Negative); Ketones Urine UA NEGATIVE (NEGATIVE); Leukocyte Esterase Urine UA TRACE (NEGATIVE); Nitrite Urine UA NEGATIVE (Negative); Occult Blood Urine UA 3+ (Negative); Protein Urine UA TRACE (Negative); Urobilinogen Urine UA 0.2 E.U./dL (0.2)
[2020-08-28 16:21] LABS: RBC Urine 5-10/HPF (0-5/HPF)
[2020-08-28 16:22] LABS: Amorphous Sediment Urine 2+; Bacteria Urine Few (2-10); Culture Indicated Urine Specimen Cultured; Squamous Epithelial Cell Urine 1-5 /HPF (0-5/HPF); WBC Urine 5-10/HPF (0-5/HPF)
[2020-08-28 16:27] LABS: Creatinine Urine Random 113.1 mg/dL; Sodium Urine Random 19 mmol/L (30-90)
[2020-08-28 16:57] LABS: HCO3 VBG 22 mmol/L (23-28); Oxygen Saturation VBG 45 % (70-75); PCO2 VBG 39.5 mmHg (45-50); PO2 VBG 26 mmHg (35-45); Total CO2 VBG 23 mmol/L (24-29); pH VBG 7.36 (7.33-7.43)
[2020-08-28] MEDS: SODIUM BICARB 8.4% SYRINGE 50 MEQ IV (17:01)
[2020-08-28] MEDS: CALCIUM GLUCONATE 4.65 MEQ in SODIUM CHLORIDE 0.9% 50 ML 180 ML IV (17:01)
[2020-08-28 17:34] LABS: COVID19 -Nasal RAPID Negative (Negative)
--- NOTE | 2020-08-28 17:43 | PC.NURSE ---
pt reports increased chest pain and pressure, md notified. orders obtained for repeat chemistry, troponin, and ekg. will cont to monitor. 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
[2020-08-28 17:57] LABS: BUN Creatinine Ratio 9.7 (6-22); Blood Urea Nitrogen 60 mg/dL (7-17); Calcium 7.7 mg/dL (8.4-10.2); Carbon Dioxide 23 mmol/L (22-32); Chloride 88 mmol/L (98-107); Estimated Glomerular Filt Rate 6.6 mL/min (>60); Glucose 220 mg/dL (80-110); HEMOLYSIS < 15 (0-50); Potassium 4.7 mmol/L (3.4-5.1); Sodium 123 mmol/L (137-145)
[2020-08-28 18:08] LABS: Troponin I 0.024 ng/mL (0.01-0.034)
== END 2020-08-28 21:40 | disposition short-term general hospital (02) ==
PROVIDERS: Emergency Provider Emergency Medicine
DX: E87.5 Hyperkalemia (principal); E87.1 Hypo-osmolality and hyponatremia; N17.9 Acute kidney failure, unspecified; R11.2 Nausea with vomiting, unspecified; Z20.822 Contact with and (suspected) exposure to COVID-19
CPT/HCPCS: 36415; 51701; 51705; 70450; 76770; 80048; 80053; 81001; 82550; 82570; 82805; 82962; 83735; 84100; 84300; 84484; 85025; 87086; 87635; 93005; 93010; 96365; 96366; 96375; 96376; 99284; 99285; C9803; J0610; J1940; J2405

== ENCOUNTER → 2020-09-07 16:49 | Outpatient (CLI) | payer MEDICARE, OTHER, SELFPAY ==
[2020-05-25 04:32] VITALS: BMI 23.3
--- NOTE | 2020-09-07 | DI.RAD.S_ITS ---
PROCEDURE: XR WRIST LT MIN 3V INDICATIONS: S52.502D TECHNIQUE: 3 views of the wrist were acquired. COMPARISON: [facility], CR, XR WRIST LT MIN 3V, 08/24/2020, 20:33. FINDINGS: Bones: Unchanged alignment of distal radial fracture since 08/24/20. Persistent loss of the normal volar angulation of the distal radial articular surface. Diffuse carpal joint degeneration most pronounced at the 1st CMC and triscaphe joint. Soft tissues: No suspicious soft tissue calcifications. IMPRESSION: Unchanged alignment of distal radial fracture. Dictated by: Keon Alcantara M.D. on 09/08/2020 at 9:24 Approved by: Keon Alcantara M.D. on 09/08/2020 at 9:25
--- NOTE | 2020-09-07 | DI.RAD.S_ITS ---
PROCEDURE: XR HAND LT MIN 3V INDICATIONS: S52.502D TECHNIQUE: 3 views of the hand(s) acquired. COMPARISON: [facility], CR, XR WRIST LT MIN 3V, 08/24/2020, 20:33. [facility], CR, XR WRIST LT MIN 3V, 09/07/2020, 16:58. FINDINGS: Bones: Grossly unchanged alignment of distal radial fracture since 08/24/20. There is loss of the normal volar angulation of the distal radial articular surface as before. 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 Soft tissues: No suspicious soft tissue calcifications. IMPRESSION: Unchanged alignment as above Dictated by: Keon Alcantara M.D. on 09/08/2020 at 9:20 Approved by: Keon Alcantara M.D. on 09/08/2020 at 9:24
== END ==
PROVIDERS: Referring Provider Nurse Practitioner; Visit Provider Nurse Practitioner
DX: S52.502D Unspecified fracture of the lower end of left radius, subsequent encounter for closed fracture with routine healing (principal); X58.XXXD Exposure to other specified factors, subsequent encounter
CPT/HCPCS: 73110; 73130

== ENCOUNTER → 2020-09-09 13:38 | Outpatient (ROUT) | payer MEDICARE, OTHER, SELFPAY ==
[2020-05-25 04:32] VITALS: BMI 23.3
[2020-09-09 13:52] LABS: Appearance Urine UA CLOUDY; Bilirubin Urine UA NEGATIVE (NEGATIVE); Color Urine UA YELLOW; Glucose Urine UA NEGATIVE (Negative); Ketones Urine UA NEGATIVE (NEGATIVE); Leukocyte Esterase Urine UA 3+ (NEGATIVE); Nitrite Urine UA NEGATIVE (Negative); Occult Blood Urine UA 2+ (Negative); Protein Urine UA 2+ (Negative); Specific Gravity Urine UA 1.015 (1.000-1.035); Urobilinogen Urine UA 0.2 E.U./dL (0.2)
[2020-09-09 13:54] LABS: pH Urine UA 5.5 (4.5-8.0)
[2020-09-09 13:58] LABS: RBC Urine 10-30/HPF (0-5/HPF)
[2020-09-09 13:59] LABS: Bacteria Urine Many (>30); Culture Indicated Urine Specimen Cultured; Squamous Epithelial Cell Urine 1-5 /HPF (0-5/HPF); WBC Urine >100/HPF (0-5/HPF)
== END ==
PROVIDERS: Visit Provider Hospitalist
DX: N39.0 Urinary tract infection, site not specified (principal)
CPT/HCPCS: 81001; 87077; 87086; 87186

== ENCOUNTER → 2020-10-05 12:01 | Outpatient (CLI) | payer MEDICARE, OTHER, SELFPAY ==
[2020-05-25 04:32] VITALS: BMI 23.3
[2020-10-05 12:51] LABS: Add Manual Diff / Slide Review NO; Basophils Absolute Auto 100 /uL (0-100); Eosinophils Absolute Auto 200 /uL (0-450); Eosinophils Percent Auto 2.8 % (2-4); Hematocrit 32.4 % (36-46); Hemoglobin 10.9 g/dL (12.0-16.0); Lymphocytes Absolute Auto 1000 /uL (1100-4500); Lymphocytes Percent Auto 14.8 % (25-40); Mean Corpuscular HGB Conc 33.7 % (30-36); Mean Corpuscular Hemoglobin 29.7 PG (26-34); Mean Corpuscular Volume 88.1 fL (80-100); Monocytes Absolute Auto 400 /uL (0-900); Monocytes Percent Auto 6.2 % (3-14); Neutrophils Absolute Auto 5200 /uL (1500-7000); Neutrophils Percent Auto 75.2 % (50-75); Platelet Count 356 X10^3/uL (150-400); Red Blood Cell Count 3.67 X10^6/uL (4.0-5.2); Red Cell Distribution Width 13.7 % (11.6-14.8); White Blood Cell Count 6.9 X10^3/uL (4.5-11.0)
[2020-10-05 12:58] LABS: Hemoglobin A1C% w Est Avg Glu 9.1 % (4.0-6.0)
[2020-10-05 13:02] LABS: Phosphorous 3.7 mg/dL (2.8-4.1); Uric Acid 9.9 mg/dL (2.5-6.2)
[2020-10-05 13:04] LABS: BUN Creatinine Ratio 12.9 (6-22); Blood Urea Nitrogen 20 mg/dL (7-17); Calcium 9.1 mg/dL (8.4-10.2); Carbon Dioxide 25 mmol/L (22-32); Chloride 97 mmol/L (98-107); Estimated Glomerular Filt Rate 32.6 mL/min (>60); Glucose 376 mg/dL (80-110); HEMOLYSIS < 15 (0-50); Potassium 3.8 mmol/L (3.4-5.1); Sodium 132 mmol/L (137-145)
[2020-10-05 15:53] LABS: Vitamin D 25 Hydroxy (D3) 38.5 ng/mL (30.0-100.0)
[2020-10-06 07:36] LABS: Parathyroid Hormone Int 134 pg/mL (15-65)
== END ==
PROVIDERS: PCP Student in an Organized Health Care Education/Training Program; Referring Provider Internal Medicine Nephrology; Visit Provider Internal Medicine Nephrology
DX: N17.9 Acute kidney failure, unspecified; E11.9 Type 2 diabetes mellitus without complications; E55.9 Vitamin D deficiency, unspecified; I50.9 Heart failure, unspecified; N28.9 Disorder of kidney and ureter, unspecified
CPT/HCPCS: 36415; 80048; 82306; 83036; 83970; 84100; 84550; 85025

== ENCOUNTER 2020-10-15 09:35 | Inpatient (IN) | payer MEDICARE, OTHER, SELFPAY ==
[2020-05-25 04:32] VITALS: BMI 23.3
[2020-10-15] VITALS (27 sets, daily range): BP systolic 80–209; BP diastolic 46–95; PULSE 74–94; RESP 20; TEMP 36.6–36.7; O2SAT 95–100; BMI 54.4; BMI 24.7
--- NOTE | 2020-10-15 09:56 | DI.RAD.S_ITS ---
PROCEDURE: XR SHOULDER RT MIN 2V INDICATIONS: fall, please wait for pain meds to take, thanks TECHNIQUE: 2 views of the shoulder were acquired. COMPARISON: None. FINDINGS: Bones: Subtle oblique fracture of the humeral neck/proximal humeral shaft. Near anatomic alignment. No suspicious bony lesions. Visualized ribs appear intact. Soft tissues: No suspicious soft tissue calcifications. IMPRESSION: Nondisplaced humeral neck/proximal shaft of humerus fracture. Dictated by: Sherif Bourne M.D. on 10/15/2020 at 10:07 Approved by: Sherif Bourne M.D. on 10/15/2020 at 10:08
--- NOTE | 2020-10-15 09:56 | DI.RAD.S_ITS ---
PROCEDURE: XR ELBOW RT 2V INDICATIONS: fall, please wait for pain meds to take, thanks TECHNIQUE: 2 views of the elbow were acquired. COMPARISON: None. FINDINGS: Bones: No fractures or dislocations. No suspicious bony lesions. Soft tissues: No elbow joint effusion. No suspicious soft tissue calcifications. IMPRESSION: No evidence acute bony abnormality of the right elbow. If clinical suspicion and/or symptoms persist, further assessment with repeat plain films, or advanced imaging (e.g., CT, MRI, or bone scan) may be helpful for further assessment. Dictated by: Sherif Bourne M.D. on 10/15/2020 at 9:58 Approved by: Sherif Bourne M.D. on 10/15/2020 at 9:58
--- NOTE | 2020-10-15 09:56 | DI.RAD.S_ITS ---
PROCEDURE: XR KNEE RT 3V INDICATIONS: fall, please wait for pain meds to take, thanks TECHNIQUE: 3 views of the knee were acquired. COMPARISON: None. FINDINGS: Bones: The bones are diffusely osteopenic. No obvious fractures identified. No dislocation. Soft tissues: No joint effusion. No suspicious soft tissue calcifications. IMPRESSION: Diffuse osteopenia. No obvious fractures identified. Consider CT of the right knee if suspect acute fracture. Dictated by: Sherif Bourne M.D. on 10/15/2020 at 9:53 Approved by: Sherif Bourne M.D. on 10/15/2020 at 9:55
--- NOTE | 2020-10-15 09:56 | DI.RAD.S_ITS ---
PROCEDURE: XR HIP W PEL IF DONE RT 2V INDICATIONS: fall, please wait for pain meds to take, thanks TECHNIQUE: AP pelvis with lateral view(s) of the right hip(s). COMPARISON: None. FINDINGS: Bones: Right total hip revision arthroplasty. No evidence of hardware failure or loosening. Left hip total arthroplasty not fully imaged. No fractures or dislocations. Pelvic ring appears intact. No suspicious bony lesions. Soft tissues: The visualized bowel gas pattern is normal. Extensive vascular calcifications. IMPRESSION: 1. Bilateral total hip arthroplasties. Expected appearance of total right hip revision arthroplasty. 2. No evidence acute bony abnormality of the pelvis and right hip. If clinical suspicion and/or symptoms persist, further assessment with repeat plain films, or advanced imaging (e.g., CT, MRI, or bone scan) may be helpful for further assessment. Dictated by: Sherif Bourne M.D. on 10/15/2020 at 9:52 Approved by: Sherif Bourne M.D. on 10/15/2020 at 9:53
--- NOTE | 2020-10-15 09:56 | DI.RAD.S_ITS ---
PROCEDURE: XR WRIST RT 2V INDICATIONS: fall, please wait for pain meds to take, thanks TECHNIQUE: 2 views of the wrist were acquired. COMPARISON: None FINDINGS: Bones: Comminuted, impacted, displaced distal radius fracture with dorsal angulation of the major distal fragment. No suspicious bony lesions. Soft tissues: No suspicious soft tissue calcifications. IMPRESSION: Comminuted, impacted, displaced distal radius fracture with dorsal angulation the major distal fragment. Dictated by: Sherif Bourne M.D. on 10/15/2020 at 9:58 Approved by: Sherif Bourne M.D. on 10/15/2020 at 10:00
[2020-10-15] MEDS: HYDROMORPHONE 0.5 MG INJ IV ×3 (10:06→22:52)
[2020-10-15] MEDS: HYDROMORPHONE 1 MG INJ IV (11:28)
--- NOTE | 2020-10-15 11:28 | ED.FALL ---
HPI - Fall General Chief Complaint: Fall Stated Complaint: fall Time Seen by Provider: 10/15/20 09:56 Source: EMS Mode of arrival: EMS History of Present Illness HPI Narrative: 70-year-old woman with a history of congestive heart failure and had a mechanical fall today. She was coming on a slight incline using her cane when she lost her balance she ended up landing on her right wrist and hip is complaining of right wrist elbow shoulder hip and leg pain. She did not hit her head and did not lose consciousness. There was no presyncopal events described. She had a similar event in August with a left wrist fracture that was just taken out of the cast in the last week. After that episode she came in 3 days later in acute renal failure presumably because of dehydration and pain issues. She was admitted to an outside hospital and then transferred to rehab unit for brief period of time. Recently followed up with her it risk analyst and renal function is back to its baseline with a creatinine in the 1.5 range. Related Data Home Medications Medication Instructions Recorded Confirmed aspirin 81 mg tablet 81 mg PO BID 05/25/20 09/19/20 atorvastatin 40 mg tablet 40 mg PO BEDTIME 05/25/20 09/19/20 cholecalciferol (vitamin D3) 25 25 mcg PO BID 05/25/20 09/19/20 mcg (1,000 unit) tablet clopidogrel 75 mg tablet 75 mg PO DAILY 05/25/20 09/19/20 colestipol 1 gram tablet 1 g PO BID 05/25/20 09/19/20 digoxin 125 mcg (0.125 mg) tablet 125 mcg PO DAILY 05/25/20 09/19/20 docusate sodium 100 mg capsule 100 mg PO DAILY 05/25/20 09/19/20 lisinopril 5 mg tablet 5 mg PO BID 05/25/20 09/19/20 metformin 500 mg tablet 500 mg PO BID 05/25/20 09/19/20 metoprolol tartrate 100 mg tablet 100 mg PO BID 05/25/20 09/19/20 potassium chloride 10 mEq 10 meq PO DAILY 05/25/20 09/19/20 tablet,extended release spironolactone 25 mg tablet 12.5 mg PO DAILY 05/25/20 09/19/20 torsemide 20 mg tablet 20 mg PO BID 05/25/20 09/19/20 Previous Rx's Medication Instructions Recorded pantoprazole 40 mg tablet,delayed 40 mg PO DAILY #30 tab 05/25/20 release sertraline 50 mg tablet 50 mg PO DAILY #30 tab 09/19/20 hydrocodone 5 mg-acetaminophen 325 1 tab PO Q6H PRN #14 tab 10/15/20 mg tablet ondansetron HCl 4 mg tablet 4 mg PO Q6H PRN #14 tab 10/15/20 (Zofran) Allergies Allergy/AdvReac Type Severity Reaction Status Date / Time dimenhydrinate Allergy Verified 10/15/20 13:44 [From Dramamine] diphenhydramine AdvReac Verified 10/15/20 13:44 [From Benadryl] hydrocodone AdvReac Verified 10/15/20 13:44 Review of Systems Review of Systems Narrative: Patient is quite confused after adequate pain medication. Her daughter is with her and notes that she has not had any specific complaints or changes to her baseline medical issues recently ROS Unobtainable: Unobtainable due to mental condition Patient History Medical History Acute pancreatitis CHF (congestive heart failure) Diabetes mellitus type 2 in obese Myocardial infarction Plaque psoriasis Surgical History History of appendectomy History of bilateral hip replacements History of cholecystectomy History of left knee surgery History of surgery on right wrist Family History Mother Congestive heart failure Brother Congestive heart failure Social History household members: family Smoking Status: Never smoker alcohol intake: never Smoking Status: Never smoker Substance Use Type: does not use Exam Narrative Exam Narrative: General: Pale, in pain from her wrist injury. Sedated with pain medication and daughter supplements history HEENT: Moist mucous membranes, normal sclera with reactive pupils, Respiratory: Lungs are clear to auscultation, no wheezing no rales no rhonchi. Full and symmetrical air movement Cardiac: Regular rate and rhythm no murmurs no bruits Abdomen: Soft, nontender, good bowel tones, no flank pain Spine and pelvis: No tenderness along the cervical thoracic or lumbar spine. Some mild tenderness with manipulation of her pelvic ring no significant abrasions or contusions over the greater trochanter on the right side area of pain Skin: Warm and dry, no rashes Neurologic: Grossly neurologically intact with no obvious asymmetries or abnormalities Extremities: No abrasions or contusions. She has moderate deformity of the right wrist tenderness at the elbow and shoulder. Psych: Sedated and in pain Initial Vital Signs Initial Vital Signs: Vital Signs Temperature 97.9 F 10/15/20 09:48 Pulse Rate 83 10/15/20 09:48 Respiratory Rate 20 10/15/20 09:48 Blood Pressure 209/95 H 10/15/20 09:48 Pulse Oximetry 100 10/15/20 09:48 Procedures Orthopedic Splinting/Casting Right wrist and right proximal humerus: Time of procedure: 13:06 Upper Extremity Injury Location: shoulder and wrist Upper Extremity Immobilizer: sling/shoulder immobilizer and volar splint Post splinting neuro exam: intact Post splinting vascular exam: intact Placed by: Provider Course Orders Ordered: ED Orders 10/15/20 09:56 XR elbow RT 2V Stat XR elbow RT min 3V Stat XR hip w pel if done RT 2V Stat XR knee RT 3V Stat XR shoulder RT min 2V Stat 10/15/20 13:07 XR wrist RT 2V Stat Hydromorphone HCl (Hydromorphone 0.5 Mg Inj) 0.5 mg IV Q15MIN PRN PRN Reason: Pain, Last Admin: 10/15/20 10:56 Dose: 0.5 mg Documented by: Admin: 10/15/20 10:06 Dose: 0.5 mg Documented by: PARKER Discontinued Medications Acetaminophen (Acetaminophen 325 Mg Tablet) 650 mg PO NOW ONE Stop: 10/15/20 13:08 Last Admin: 10/15/20 13:20 Dose: 650 mg Documented by: PARKER Hydromorphone HCl (Hydromorphone 1 Mg Inj) 1 mg IV NOW ONE Stop: 10/15/20 10:52 Last Admin: 10/15/20 11:28 Dose: 1 mg Documented by: PARKER Vital Signs Vital signs: Vital Signs - 8 hr 10/15/20 09:48 10/15/20 12:02 10/15/20 12:06 Temperature 97.9 F Pulse Rate 83 84 84 Respiratory Rate 20 Blood Pressure 209/95 H 90/53 L Pulse Oximetry 100 95 97 10/15/20 12:07 10/15/20 12:09 10/15/20 12:30 Temperature Pulse Rate 86 90 83 Respiratory Rate Blood Pressure 106/51 L Pulse Oximetry 98 98 95 MDM - Fall Imaging Data XR wrist: Radiologist's Impression: 2nd film, post reduction and splinting FINDINGS: Bones: Significantly improved alignment of a an impacted comminuted distal radius fracture extending to the articular surface. Associated ulnar styloid avulsion. Soft tissues: No suspicious soft tissue calcifications. IMPRESSION: Significant improvement in alignment of distal radial fracture. Comminuted, extending to the articular surface. Associated ulnar styloid avulsion. Dictated by: Sherif Bourne M.D. on 10/15/2020 at 12:52 Shoulder XR: Radiologist's Impression: FINDINGS: Bones: Subtle oblique fracture of the humeral neck/proximal humeral shaft. Near anatomic alignment. No suspicious bony lesions. Visualized ribs appear intact. Soft tissues: No suspicious soft tissue calcifications. IMPRESSION: Nondisplaced humeral neck/proximal shaft of humerus fracture. Dictated by: Sherif Bourne M.D. on 10/15/2020 at 10:07 knee xray: Radiologist's Impression: FINDINGS: Bones: The bones are diffusely osteopenic. No obvious fractures identified. No dislocation. Soft tissues: No joint effusion. No suspicious soft tissue calcifications. IMPRESSION: Diffuse osteopenia. No obvious fractures identified. Consider CT of the right knee if suspect acute fracture. Dictated by: Sherif Bourne M.D. on 10/15/2020 at 9:53 hip xray: Radiologist's Impression: FINDINGS: Bones: Right total hip revision arthroplasty. No evidence of hardware failure or loosening. Left hip total arthroplasty not fully imaged. No fractures or dislocations. Pelvic ring appears intact. No suspicious bony lesions. Soft tissues: The visualized bowel gas pattern is normal. Extensive vascular calcifications. IMPRESSION: 1. Bilateral total hip arthroplasties. Expected appearance of total right hip revision arthroplasty. 2. No evidence acute bony abnormality of the pelvis and right hip. If clinical suspicion and/or symptoms persist, further assessment with repeat plain films, or advanced imaging (e.g., CT, MRI, or bone scan) may be helpful for further assessment. Dictated by: Sherif Bourne M.D. on 10/15/2020 at 9:52 Critical Care Time Critical Care Time Attestation: 75-year-old woman with a mechanical fall suffering a right wrist fracture and proximal humerus fracture. Right wrist is reduced and splinted and the entire right upper extremity is placed in a sling. She has no other obvious injuries. With recent wrist fracture on the left side she had significant nausea and vomiting and ended up admitted. Will try to use Tylenol and [place] for pain this time. She is exquisitely sensitive to pain and was writhing in the emergency room with her injuries. Will ask her to follow-up with [facility]. Discharge Plan Departure Patient Disposition: Home Clinical Impression: Fracture of wrist Qualifiers: Encounter type: initial encounter Fracture type: closed Laterality: right Qualified Code(s): S62.101A - Fracture of unspecified carpal bone, right wrist, initial encounter for closed fracture Fracture of proximal end of humerus Qualifiers: Encounter type: initial encounter Fracture type: closed Fracture morphology: unspecified fracture morphology Laterality: right Qualified Code(s): S42.201A - Unspecified fracture of upper end of right humerus, initial encounter for closed fracture Instructions: DI for Wrist Fracture, Humeral Shaft Fracture Activity Restrictions/Additional Instructions: I am so sorry you have fallen again and broken your other wrist. The fractures are fairly similar. This time you do have a clean fracture to the upper part of your arm. For the arm fracture we treat that by keeping when a sling for pain control and allowing your body to heal itself. For the wrist fracture you have been placed in a splint and you will need to follow-up with [facility] call [phone] for definitive treatment of your wrist fracture Regarding pain control, I believe that the Percocet that we use last time caused nausea and vomiting that led to hospitalization. This time, I am going to suggest that we use mostly Tylenol and for severe pain take 1 nausea medication and then 1 [place]. It is important that you continue to drink and if he begin having vomiting you need to come to the ER sooner rather than later. I hope you heal quickly Prescriptions: New hydrocodone-acetaminophen 5-325 mg tablet 1 tab PO Q6H PRN (Reason: pain) Qty: 14 RF: 0 ondansetron HCl [Zofran] 4 mg tablet 4 mg PO Q6H PRN (Reason: nausea and vomiting) Qty: 14 RF: 0 No Action sertraline 50 mg tablet 50 mg PO DAILY Qty: 30 RF: 0 clopidogrel 75 mg Tablet 75 mg PO DAILY RF: 0 docusate sodium 100 mg Capsule 100 mg PO DAILY RF: 0 digoxin 125 mcg (0.125 mg) Tablet 125 mcg PO DAILY RF: 0 potassium chloride 10 mEq Tablet Extended Release 10 meq PO DAILY RF: 0 cholecalciferol (vitamin D3) 25 mcg (1,000 unit) Tablet 25 mcg PO BID RF: 0 spironolactone 25 mg Tablet 12.5 mg PO DAILY RF: 0 atorvastatin 40 mg Tablet 40 mg PO BEDTIME RF: 0 lisinopril 5 mg Tablet 5 mg PO BID RF: 0 aspirin 81 mg Tablet 81 mg PO BID RF: 0 torsemide 20 mg Tablet 20 mg PO BID RF: 0 metformin 500 mg Tablet 500 mg PO BID RF: 0 metoprolol tartrate 100 mg Tablet 100 mg PO BID RF: 0 colestipol 1 gram Tablet 1 g PO BID RF: 0 pantoprazole 40 mg tablet,delayed release (DR/EC) 40 mg PO DAILY Qty: 30 RF: 0 Referrals: Oliver Ibrahim MD [Primary Care Provider] -
--- NOTE | 2020-10-15 13:07 | DI.RAD.S_ITS ---
PROCEDURE: XR WRIST RT 2V INDICATIONS: post reduction and splinting TECHNIQUE: 2 views of the wrist were acquired. COMPARISON: [facility], , XR WRIST RT 2V, 10/15/2020, 10:19. FINDINGS: Bones: Significantly improved alignment of a an impacted comminuted distal radius fracture extending to the articular surface. Associated ulnar styloid avulsion. Soft tissues: No suspicious soft tissue calcifications. IMPRESSION: Significant improvement in alignment of distal radial fracture. Comminuted, extending to the articular surface. Associated ulnar styloid avulsion. Dictated by: Sheirf Bourne M.D. on 10/15/2020 at 12:52 Approved by: Sherif Bourne M.D. on 10/15/2020 at 12:55
[2020-10-15] MEDS: ACETAMINOPHEN 325 MG TABLET 650 MG PO (13:20)
--- NOTE | 2020-10-15 15:15 | PC.NURSE ---
After two attempts to get pt to wheelchair, pt became pale, dizzy and unable to stand or take a step on her own. She was placed back in bed and given food an juice.
[2020-10-15 15:24] LABS: Add Manual Diff / Slide Review NO; Basophils Absolute Auto 200 /uL (0-100); Basophils Percent Auto 1.9 % (0-2); Eosinophils Absolute Auto 100 /uL (0-450); Eosinophils Percent Auto 1.3 % (2-4); Hematocrit 31.2 % (36-46); Hemoglobin 10.4 g/dL (12.0-16.0); Lymphocytes Absolute Auto 1200 /uL (1100-4500); Lymphocytes Percent Auto 12.5 % (25-40); Mean Corpuscular HGB Conc 33.2 % (30-36); Mean Corpuscular Hemoglobin 29.3 PG (26-34); Mean Corpuscular Volume 88.1 fL (80-100); Monocytes Absolute Auto 700 /uL (0-900); Neutrophils Absolute Auto 7300 /uL (1500-7000); Neutrophils Percent Auto 77.3 % (50-75); Platelet Count 301 X10^3/uL (150-400); Red Blood Cell Count 3.54 X10^6/uL (4.0-5.2); Red Cell Distribution Width 13.3 % (11.6-14.8); White Blood Cell Count 9.4 X10^3/uL (4.5-11.0)
[2020-10-15 15:28] LABS: Alanine Aminotransferase 13 IU/L (<35); Albumin 3.5 g/dL (3.5-5.0); Albumin Globulin Ratio 1.1 (1.0-2.8); Alkaline Phosphatase 180 U/L (38-126); Aspartate Aminotransferase 19 IU/L (14-36); BUN Creatinine Ratio 12.2 (6-22); Bilirubin Total 0.3 mg/dL (0.2-1.3); Blood Urea Nitrogen 18 mg/dL (7-17); Calcium 9.5 mg/dL (8.4-10.2); Carbon Dioxide 21 mmol/L (22-32); Chloride 103 mmol/L (98-107); Estimated Glomerular Filt Rate 34.4 mL/min (>60); Globulin 3.1 g/dL (1.7-4.1); Glucose 309 mg/dL (80-110); HEMOLYSIS < 15 (0-50); Potassium 4.8 mmol/L (3.4-5.1); Sodium 133 mmol/L (137-145); Total Protein 6.6 g/dL (6.3-8.2)
--- NOTE | 2020-10-15 16:36 | PC.NURSE ---
Patient needed to relieve herself. Got patient a clean commode and assisted to stand to the commode. It was a successful transfer. Pt stayed asked to stay on the commode for a while as she stated that she was having a hard time 'going'. When patient was ready to get into the bed, the call light was pressed. Went in to transfer patient back to the bed and patient appeared to not be able to stand. After a few attempts help from another nurse was sought. Patient was able to stand with assistance but appeared to be very weak when transferring to bed.
[2020-10-15 18:31] LABS: COVID19 - ADMIT (NP swab/PCR) Negative (Negative)
--- NOTE | 2020-10-15 19:29 | ED_ITS ---
HPI - Fall General Chief Complaint: Fall Stated Complaint: fall Time Seen by Provider: 10/15/20 09:56 Source: EMS Mode of arrival: EMS Related Data Home Medications Medication Instructions Recorded Confirmed aspirin 81 mg tablet 81 mg PO BID 05/25/20 09/19/20 atorvastatin 40 mg tablet 40 mg PO BEDTIME 05/25/20 09/19/20 cholecalciferol (vitamin D3) 25 25 mcg PO BID 05/25/20 09/19/20 mcg (1,000 unit) tablet clopidogrel 75 mg tablet 75 mg PO DAILY 05/25/20 09/19/20 colestipol 1 gram tablet 1 g PO BID 05/25/20 09/19/20 digoxin 125 mcg (0.125 mg) tablet 125 mcg PO DAILY 05/25/20 09/19/20 docusate sodium 100 mg capsule 100 mg PO DAILY 05/25/20 09/19/20 lisinopril 5 mg tablet 5 mg PO BID 05/25/20 09/19/20 metformin 500 mg tablet 500 mg PO BID 05/25/20 09/19/20 metoprolol tartrate 100 mg tablet 100 mg PO BID 05/25/20 09/19/20 potassium chloride 10 mEq 10 meq PO DAILY 05/25/20 09/19/20 tablet,extended release spironolactone 25 mg tablet 12.5 mg PO DAILY 05/25/20 09/19/20 torsemide 20 mg tablet 20 mg PO BID 05/25/20 09/19/20 Previous Rx's Medication Instructions Recorded pantoprazole 40 mg tablet,delayed 40 mg PO DAILY #30 tab 05/25/20 release sertraline 50 mg tablet 50 mg PO DAILY #30 tab 09/19/20 hydrocodone 5 mg-acetaminophen 325 1 tab PO Q6H PRN #14 tab 10/15/20 mg tablet ondansetron HCl 4 mg tablet 4 mg PO Q6H PRN #14 tab 10/15/20 (Zofran) Allergies Allergy/AdvReac Type Severity Reaction Status Date / Time dimenhydrinate Allergy Verified 10/15/20 13:44 [From Dramamine] diphenhydramine AdvReac Verified 10/15/20 13:44 [From Benadryl] hydrocodone AdvReac Verified 10/15/20 13:44 Patient History Medical History Acute pancreatitis CHF (congestive heart failure) Diabetes mellitus type 2 in obese Myocardial infarction Plaque psoriasis Surgical History History of appendectomy History of bilateral hip replacements History of cholecystectomy History of left knee surgery History of surgery on right wrist Family History Mother Congestive heart failure Brother Congestive heart failure Social History household members: family Smoking Status: Never smoker alcohol intake: never Smoking Status: Never smoker Substance Use Type: does not use Exam Initial Vital Signs Initial Vital Signs: Vital Signs Temperature 97.9 F 10/15/20 09:48 Pulse Rate 83 10/15/20 09:48 Respiratory Rate 20 10/15/20 09:48 Blood Pressure 209/95 H 10/15/20 09:48 Pulse Oximetry 100 10/15/20 09:48 Course Orders Ordered: ED Orders 10/15/20 13:07 XR wrist RT 2V Stat 10/15/20 15:13 Urinalysis and Microscopic Stat 10/15/20 16:50 COVID19 - ADMIT (SUPERINTENDENT RADIO COMMUNICATIONS swab/PCR) Stat Acetaminophen (Acetaminophen 325 Mg Tablet) 650 mg PO Q6HR PRN PRN Reason: Fever/Mild Pain (1-3) Al Hydrox/Mg Hydrox/Simethicone (Mag Hydrox/Alum/Simeth 30 Ml Udc) 30 ml PO Q6HR PRN PRN Reason: Dyspepsia Hydromorphone HCl (Hydromorphone 0.5 Mg Inj) 0.5 mg IV Q15MIN PRN PRN Reason: Pain, Last Admin: 10/15/20 10:56 Dose: 0.5 mg Documented by: Admin: 10/15/20 10:06 Dose: 0.5 mg Documented by: PARKER Hydromorphone HCl (Hydromorphone 0.5 Mg Inj) 0.5 mg IV Q6H PRN PRN Reason: Pain, Moderate (4-6) Sodium Chloride (Normal Saline 0.9%) 1,000 mls @ 40 mls/hr IV CONT CARLOS Naloxone HCl (Naloxone 0.4 Mg/Ml Vial) 0.2 mg IV Q2MIN PRN PRN Reason: Opiate Reversal Ondansetron HCl (Ondansetron 4 Mg/2 Ml Inj) 4 mg IV Q8HR PRN PRN Reason: Nausea And Vomiting Sennosides (Sennosides 8.6 Mg Tablet) 17.2 mg PO BEDTIME CARLOS Discontinued Medications Acetaminophen (Acetaminophen 325 Mg Tablet) 650 mg PO NOW ONE Stop: 10/15/20 13:08 Last Admin: 10/15/20 13:20 Dose: 650 mg Documented by: PARKER Hydromorphone HCl (Hydromorphone 1 Mg Inj) 1 mg IV NOW ONE Stop: 10/15/20 10:52 Last Admin: 10/15/20 11:28 Dose: 1 mg Documented by: PARKER Vital Signs Vital signs: Vital Signs - 8 hr 10/15/20 12:02 10/15/20 12:06 10/15/20 12:07 Pulse Rate 84 84 86 Blood Pressure 90/53 L Pulse Oximetry 95 97 98 10/15/20 12:09 10/15/20 12:30 10/15/20 12:36 Pulse Rate 90 83 84 Blood Pressure 106/51 L 80/46 L Pulse Oximetry 98 95 96 10/15/20 12:37 10/15/20 13:00 10/15/20 13:01 Pulse Rate 86 82 74 Blood Pressure 89/51 L 107/64 Pulse Oximetry 97 97 96 10/15/20 13:30 10/15/20 13:31 10/15/20 14:00 Pulse Rate 86 84 81 Blood Pressure 144/58 H 112/59 L Pulse Oximetry 100 98 97 10/15/20 14:30 10/15/20 14:35 10/15/20 14:58 Pulse Rate 90 88 89 Blood Pressure 185/86 H 122/57 L Pulse Oximetry 98 100 97 10/15/20 16:46 10/15/20 16:47 10/15/20 17:00 Pulse Rate 92 H 94 H Blood Pressure 137/64 Pulse Oximetry 96 96 10/15/20 17:30 10/15/20 18:00 10/15/20 18:30 Pulse Rate 93 H 89 86 Blood Pressure 154/72 H Pulse Oximetry 99 98 96 MDM - Fall Lab Data Result diagrams: 10/15/20 09:45 10/15/20 09:45 Labs: Lab Results 10/15/20 10/15/20 10/15/20 Range/Units 09:45 09:45 16:50 WBC 9.4 (4.5-11.0) X10^3/uL RBC 3.54 L (4.0-5.2) X10^6/uL Hgb 10.4 L (12.0-16.0) g/dL Hct 31.2 L (36-46) % MCV 88.1 (80-100) fL MCH 29.3 (26-34) PG MCHC 33.2 (30-36) % RDW 13.3 (11.6-14.8) % Plt Count 301 (150-400) X10^3/uL Neut % (Auto) 77.3 H (50-75) % Lymph % (Auto) 12.5 L (25-40) % [place] % (Auto) 7.0 (3-14) % Eos % (Auto) 1.3 L (2-4) % Baso % (Auto) 1.9 (0-2) % Neut # (Auto) 7300 H (3183-4959) /uL Lymph # (Auto) 1200 (2679-8127) /uL [place] # (Auto) 700 (0-900) /uL Eos # (Auto) 100 (0-450) /uL Baso # (Auto) 200 H (0-100) /uL Sodium 133 L (137-145) mmol/L Potassium 4.8 (3.4-5.1) mmol/L Chloride 103 (98-107) mmol/L Carbon Dioxide 21 L (22-32) mmol/L BUN 18 H (7-17) mg/dL Creatinine 1.48 H (0.52-1.04) mg/dL Estimated GFR 34.4 L (>60) mL/min BUN/Creatinine Ratio 12.2 (6-22) Glucose 309 H (80-110) mg/dL Calcium 9.5 (8.4-10.2) mg/dL Total Bilirubin 0.3 (0.2-1.3) mg/dL AST 19 (14-36) IU/L ALT 13 (<35) IU/L Alkaline Phosphatase 180 H (38-126) U/L Total Protein 6.6 (6.3-8.2) g/dL Albumin 3.5 (3.5-5.0) g/dL Globulin 3.1 (1.7-4.1) g/dL Albumin/Globulin Ratio 1.1 (1.0-2.8) SARS-CoV-2 (PCR) Negative (Negative) Discharge Plan Departure Patient Disposition: Admitted as Observation Clinical Impression: Inadequate pain control, Weakness Fracture of wrist Qualifiers: Encounter type: initial encounter Fracture type: closed Laterality: right Qu alified Code(s): S62.101A - Fracture of unspecified carpal bone, right wrist, initial encounter for closed fracture Fracture of proximal end of humerus Qualifiers: Encounter type: initial encounter Fracture type: closed Fracture morphology: unspecified fracture morphology Laterality: right Qualified Code(s): S42.201A - Unspecified fracture of upper end of right humerus, initial encounter for closed fracture
[2020-10-15 20:02] LABS: Hemoglobin A1C% w Est Avg Glu 10.3 % (4.0-6.0)
--- NOTE | 2020-10-15 20:06 | P.HP_ITS ---
History of Present Illness History of Present Illness Date Patient Seen: 10/15/20 Time Patient Seen: 20:06 Chief complaint: fall Narrative: Patient is a 70-year-old woman Frances Foley who is brought in for a mechanical fall today. [place] when she lost her balance she ended up landing on her right wrist and hip is complaining of right wrist elbow shoulder hip and leg pain. She did not hit her head and did not lose consciousness. There was no presyncopal events described. She had a similar event in August with a left wrist fracture that was just taken out of the cast last week. After that episode she came in 3 days later in acute renal failure presumably because of dehydration and pain issues. She was admitted to an outside hospital and then transferred to rehab unit for brief period of time. 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 Patient has a history of CHF, hypertension, GERD, hyperlipidemia, diabetes type 2, and NE without stent placement in 2019. Patients vitals upon admit were stable with a B/P 154/72. Patient was resting in bed in no discomfort but any attempt to examine or even speak with the pa tient she becomes agitated. She is confused will respond to physical pressure but will not open her eyes, patient is unable to provide HPI or ROS unsure if this is related to medication from the ED or patient's baseline. Patient's labs demonstrated HGB of 10.4, HCT of 31.2, her chemistries appear to be at or around her baseline with a sodium of 133, BUN 18, HC03 of 21, creatinine 1.48, GFR of 34.4. Patient's blood sugar was elevated at 309. And alk phos of 180. Patient's right wrist x-ray demonstrated a nondisplaced humeral neck/proximal shaft humerus fracture. Patient admitted for right wrist fracture, cognitive impairment. Patient History Medical History (Updated 10/15/20 @ 20:07 by ELIER Hernandez) Acute pancreatitis CHF (congestive heart failure) Diabetes mellitus type 2 in obese Essential hypertension Myocardial infarction Plaque psoriasis Surgical History History of appendectomy History of bilateral hip replacements History of cholecystectomy History of left knee surgery History of surgery on right wrist Family & Social History Family History Mother Congestive heart failure Brother Congestive heart failure Social History: household members family Safety & Behavioral: Feels Safe in Current Yes Environment Been Physically Hurt or No Threatened By a Person Tobacco & Substance use: Smoking Status Never smoker alcohol intake never Substance Use Type does not use Meds Home Medications and Allergies Home Medications Medication Instructions Recorded Confirmed Type aspirin 81 mg tablet 81 mg PO BID 05/25/20 09/19/20 History atorvastatin 40 mg tablet 40 mg PO BEDTIME 05/25/20 09/19/20 History cholecalciferol (vitamin D3) 25 25 mcg PO BID 05/25/20 09/19/20 History mcg (1,000 unit) tablet clopidogrel 75 mg tablet 75 mg PO DAILY 05/25/20 09/19/20 History colestipol 1 gram tablet 1 g PO BID 05/25/20 09/19/20 History digoxin 125 mcg (0.125 mg) tablet 125 mcg PO DAILY 05/25/20 09/19/20 History docusate sodium 100 mg capsule 100 mg PO DAILY 05/25/20 09/19/20 History lisinopril 5 mg tablet 5 mg PO BID 05/25/20 09/19/20 History metformin 500 mg tablet 500 mg PO BID 05/25/20 09/19/20 History metoprolol tartrate 100 mg tablet 100 mg PO BID 05/25/20 09/19/20 History pantoprazole 40 mg tablet,delayed 40 mg PO DAILY #30 tab 05/25/20 09/19/20 Rx release potassium chloride 10 mEq 10 meq PO DAILY 05/25/20 09/19/20 History tablet,extended release spironolactone 25 mg tablet 12.5 mg PO DAILY 05/25/20 09/19/20 History torsemide 20 mg tablet 20 mg PO BID 05/25/20 09/19/20 History sertraline 50 mg tablet 50 mg PO DAILY #30 tab 09/19/20 09/19/20 Rx hydrocodone 5 mg-acetaminophen 325 1 tab PO Q6H PRN #14 tab 10/15/20 Rx mg tablet ondansetron HCl 4 mg tablet 4 mg PO Q6H PRN #14 tab 10/15/20 Rx (Zofran) Allergies Allergy/AdvReac Type Severity Reaction Status Date / Time dimenhydrinate Allergy Verified 10/15/20 13:44 [From Dramamine] diphenhydramine AdvReac Verified 10/15/20 13:44 [From Benadryl] hydrocodone AdvReac Verified 10/15/20 13:44 Review of Systems Review of Systems Narrative: Unable to obtain ROS due to mental status. Exam Vital Signs (past 8 hours): - 10/15/20 12:07 10/15/20 12:09 10/15/20 12:30 Pulse Rate 86 90 83 Blood Pressure 106/51 L Pulse Oximetry 98 98 95 10/15/20 12:36 10/15/20 12:37 10/15/20 13:00 Pulse Rate 84 86 82 Blood Pressure 80/46 L 89/51 L Pulse Oximetry 96 97 97 10/15/20 13:01 10/15/20 13:30 10/15/20 13:31 Pulse Rate 74 86 84 Blood Pressure 107/64 144/58 H Pulse Oximetry 96 100 98 10/15/20 14:00 10/15/20 14:30 10/15/20 14:35 Pulse Rate 81 90 88 Blood Pressure 112/59 L 185/86 H 122/57 L Pulse Oximetry 97 98 100 10/15/20 14:58 10/15/20 16:46 10/15/20 16:47 Pulse Rate 89 92 H Blood Pressure 137/64 Pulse Oximetry 97 96 10/15/20 17:00 10/15/20 17:30 10/15/20 18:00 Pulse Rate 94 H 93 H 89 Blood Pressure Pulse Oximetry 96 99 98 10/15/20 18:30 10/15/20 18:42 10/15/20 19:00 Pulse Rate 86 87 81 Blood Pressure 154/72 H 154/72 H Pulse Oximetry 96 99 98 10/15/20 19:30 Pulse Rate 89 Blood Pressure Pulse Oximetry 99 Oxygen Delivery Method Room Air Narrative Exam Narrative: General: Pale, in pain from her wrist injury. Patient still confused and disorientated from pain medication. Patients responses are inappropriate and she does not open her eyes. Patient is incoherent. HEENT: Moist mucous membranes, normal sclera with reactive pupils, Respiratory: Lungs are clear to auscultation, no wheezing no rales no rhonchi. Full and symmetrical air movement Cardiac: Regular rate and rhythm no murmurs no bruits Abdomen: Soft, nontender, good bowel tones, no flank pain Musculoskeletal: patient grimaces in pain with any touching and when I advise that I am going to examine her she grimaces and complains of pain without touching. Some mild tenderness with manipulation of her pelvic ring no significant abrasions or contusions over the greater trochanter on the right shyla e area of pain, Right arm is in a volar splint wrapped and in sling. When not examining patient she is resting comfortably and in no distress. Skin: Warm and dry, no rashes Neurologic: Grossly neurologically intact with no obvious asymmetries or abnormalities Psych: Confused and in mild pain when she is disturbed. Objective Labs Result Diagrams: 10/15/20 09:45 10/15/20 09:45 Labs: Laboratory Results - last 24 hr 10/15/20 10/15/20 10/15/20 09:45 09:45 09:45 WBC 9.4 RBC 3.54 L Hgb 10.4 L Hct 31.2 L MCV 88.1 MCH 29.3 MCHC 33.2 RDW 13.3 Plt Count 301 Neut % (Auto) 77.3 H Lymph % (Auto) 12.5 L [place] % (Auto) 7.0 Eos % (Auto) 1.3 L Baso % (Auto) 1.9 Neut # (Auto) 7300 H Lymph # (Auto) 1200 [place] # (Auto) 700 Eos # (Auto) 100 Baso # (Auto) 200 H Sodium 133 L Potassium 4.8 Chloride 103 Carbon Dioxide 21 L BUN 18 H Creatinine 1.48 H Estimated GFR 34.4 L BUN/Creatinine Ratio 12.2 Glucose 309 H Hemoglobin A1c 10.3 H Calcium 9.5 Total Bilirubin 0.3 AST 19 ALT 13 Alkaline Phosphatase 180 H Total Protein 6.6 Albumin 3.5 Globulin 3.1 Albumin/Globulin Ratio 1.1 SARS-CoV-2 (PCR) 10/15/20 16:50 WBC RBC Hgb Hct MCV MCH MCHC RDW Plt Count Neut % (Auto) Lymph % (Auto) [place] % (Auto) Eos % (Auto) Baso % (Auto) Neut # (Auto) Lymph # (Auto) [place] # (Auto) Eos # (Auto) Baso # (Auto) Sodium Potassium Chloride Carbon Dioxide BUN Creatinine Estimated GFR BUN/Creatinine Ratio Glucose Hemoglobin A1c Calcium Total Bilirubin AST ALT Alkaline Phosphatase Total Protein Albumin Globulin Albumin/Globulin Ratio SARS-CoV-2 (PCR) Negative Assessment & Plan Assessment and plan (1) Cognitive impairment: Status: Chronic (2) Hyperlipidemia associated with type 2 diabetes mellitus: Status: Chronic Assessment & Plan narrative: The patient a 74-year-old Female Frances Foley requires inpatient hospitalization For a right wrist fracture immediately following a healed left arm fracture. With a history of NE without stent placement in 2019, cognitive impairment. Patient may have a history of complic ating comorbidities of CHF, hypertension, GERD, hyperlipidemia, and diabetes type 2 putting her at higher risk for medical or surgical complications to include morbidity and mortality. Patient has been seen in the ED for intensity is increase in falls, fractures, and injuries. Patient also has been reported to have been released from the ED only to be readmitted within 48 hours due to complications. I feel this patient needs to be evaluated for possible placement neck and provided advanced care in the prevention of further injury. 1. Right Nondisplaced humeral neck/proximal shaft humerus fracture-pathologic, due to mechanical fall on incline, in the setting of osteopenia, acute, present on admission -in the ED the patient was unable to ambulate at all even with assistance and was unable to go home. It also should be noted that patient just had a cast from a left arm fracture removed 1 week ago. -patient's right arm in volar splint and sling, elevate arm above the level of the heart to decrease swelling as frequently as tolerated. - patient on strict bedrest, fall precautions in place -patient to be monitored on tele medicine, vital signs q.4 hours, intake and ou tput monitored Q shift, weight measure daily, diet:Carb Controlled -IV fluid normal saline 40 cc/hour -manage patient's pain hydration and comfort -labs ordered: H&H, CMP, Mag, PT -consults ordered physical therapy, occupational therapy. 2. Non insulin-dependent type 2 diabetes, acute on chronic, present on admission -patient admitted on diabetes protocol, blood sugar checks a.c. HS -A1c ordered -continue patient's metformin 3. Cognitive impairment, acute on chronic, present on admission -recommend neuro follow-up for evaluation -patient on fall precautions -patient has been frequently falling with significant fractures and injuries, patient should be considered for placement for safety. 4. Congestive heart failure, EF of 32-41%, chronic, present on admission -continue patient's Plavix, spirolactone, torsemide, potassium, digoxin -digit level ordered, BNP 5. hypertension essential, acute on chronic, present on admission -continue the patient's lisinopril, metoprolol 6. hyperlipidemia, chronic, present on admission -continue the patient's colestipol, atorvastatin 7. GERD, chronic, present on admission -continue the patient's pantoprazole Codestatus: Full code Surrogate decision maker:Kenia Chu Grand daughter PINA PCR: Negative DVT VTE prophylaxis: SCDs, Lovenox 40 minutes Estimated length of stay: Greater than 2 midnight Scores GCS Briseida coma scale eye opening: To pressure Briseida coma scale verbal response: Confused Lincoln coma scale motor response: Normal flexion Lincoln coma scale total score: 10 Wells' Criteria for PE Clinical signs and symptoms of DVT: No PE is #1 Dx or equally likely: No Heart rate > 100: No Immobilization at least 3 days or surg in previous 4 weeks: Yes History of PE or DVT: No Hemoptysis: No Malignancy w/Treatment within 6 months or palliative: No Wells' PE Score total: 1.5 Quality MIPS - Admit I confirm the patient?s Advance Care Plan is present, Code status is documented, Surrogate decision maker is in patient?s record [If Yes, STOP here]: Yes
[2020-10-15 20:39] LABS: Magnesium 1.7 mg/dL (1.6-2.3)
[2020-10-15 20:48] LABS: Digoxin 1.1 ng/mL (0.8-2.0)
[2020-10-15] MEDS: SODIUM CHLORIDE 0.9% 500 ML 21 ML IV (20:57)
[2020-10-16] VITALS (8 sets, daily range): BP systolic 117–160; BP diastolic 45–79; PULSE 65–103; RESP 14–20; TEMP 35.7–36.7; O2SAT 97–99
[2020-10-16] MEDS: HYDROMORPHONE 0.5 MG INJ IV (04:38)
[2020-10-16 05:51] LABS: Alanine Aminotransferase 11 IU/L (<35); Albumin 3.1 g/dL (3.5-5.0); Albumin Globulin Ratio 1.1 (1.0-2.8); Alkaline Phosphatase 158 U/L (38-126); Aspartate Aminotransferase 17 IU/L (14-36); BUN Creatinine Ratio 14.8 (6-22); Bilirubin Total 0.4 mg/dL (0.2-1.3); Blood Urea Nitrogen 26 mg/dL (7-17); Calcium 8.2 mg/dL (8.4-10.2); Carbon Dioxide 23 mmol/L (22-32); Chloride 102 mmol/L (98-107); Estimated Glomerular Filt Rate 28.2 mL/min (>60); Globulin 2.9 g/dL (1.7-4.1); Glucose 298 mg/dL (80-110); HEMOLYSIS < 15 (0-50); Sodium 132 mmol/L (137-145)
[2020-10-16 05:56] LABS: RBC Urine None Seen (0-5/HPF)
[2020-10-16 05:58] LABS: Appearance Urine UA CLEAR; Bilirubin Urine UA NEGATIVE (NEGATIVE); Color Urine UA YELLOW; Glucose Urine UA 1+ g/dL (Negative); Ketones Urine UA TRACE (NEGATIVE); Leukocyte Esterase Urine UA 1+ (NEGATIVE); Nitrite Urine UA NEGATIVE (Negative); Occult Blood Urine UA TRACE-LYSED (Negative); Protein Urine UA 2+ (Negative); Urobilinogen Urine UA 0.2 E.U./dL (0.2)
[2020-10-16 05:58] LABS: NT-proBNP (BNP-Adult 18+) 2920 pg/mL (<450)
[2020-10-16] MEDS: SODIUM CHLORIDE 0.9% 1,000 ML 40 ML IV (06:13)
[2020-10-16 06:33] LABS: Bacteria Urine Moderate (10-30); Culture Indicated Urine Specimen Cultured; Squamous Epithelial Cell Urine 1-5 /HPF (0-5/HPF); WBC Urine 10-30/HPF (0-5/HPF)
--- NOTE | 2020-10-16 07:36 | P.PN_ITS ---
Subjective Subjective Date Patient Seen: 10/16/20 Interval history: She is seen today to follow-up her urinary tract infection, diabetes mellitus, right humerus fracture and anxiety. She is actively distraught, screaming and crying without tears, asking for her daughter Vivian to come. I spoke with Vivian, she is busy and obligated, in her job at [employer] today and is unable to come so has asked her to come in. With a lot of close attention and listening the patient eventually calms down somewhat, responding to the Dilaudid and the alprazolam. She is hallucinating that a synchro assembler named Glen is in the corner of the room and made her sign a form that she will give up her organs. Her hemoglobin yesterday was 10.4. Her sodium is 132. The A1c is 10.3 and her blood sugar today is 342. Her urinalysis shows 10-30 WBCs with negative nitrates. She will be started on ceftriaxone pending the urine culture. We will also obtain a CT scan of her brain. Her blood pr essure is 160/75 with a heart rate of 103. Exam Vital Signs (past 8 hours): - 10/16/20 00:00 10/16/20 04:00 Temperature 96.3 F L 96.9 F L Pulse Rate 96 H 103 H Respiratory Rate 16 16 Blood Pressure 157/69 H 160/75 H Pulse Oximetry 97 99 Oxygen Delivery Method Room Air Oxygen Flow Rate 0 Narrative Exam Narrative: She is quite distraught today, screaming and frightened that a synchro assembler name Glen is in the corner of the room, made her sign a form that she will give up her organs and is going to take them now. She cannot be reassured. Heart is regular rate and rhythm without murmur Lungs are clear to auscultation Abdomen is soft, nontender, no organomegaly Extremities have no ankle edema Objective Labs Result Diagrams: 10/15/20 09:45 10/16/20 04:50 Labs: Laboratory Results - last 24 hr 10/15/20 10/15/20 10/15/20 09:45 09:45 09:45 WBC 9.4 RBC 3.54 L Hgb 10.4 L Hct 31.2 L MCV 88.1 MCH 29.3 MCHC 33.2 RDW 13.3 Plt Count 301 Neut % (Auto) 77.3 H Lymph % (Auto) 12.5 L [place] % (Auto) 7.0 Eos % (Auto) 1.3 L Baso % (Auto) 1.9 Neut # (Auto) 7300 H Lymph # (Auto) 1200 [place] # (Auto) 700 Eos # (Auto) 100 Baso # (Auto) 200 H Sodium 133 L Potassium 4.8 Chloride 103 Carbon Dioxide 21 L BUN 18 H Creatinine 1.48 H Estimated GFR 34.4 L BUN/Creatinine Ratio 12.2 Glucose 309 H Hemoglobin A1c 10.3 H Calcium 9.5 Magnesium Total Bilirubin 0.3 AST 19 ALT 13 Alkaline Phosphatase 180 H NT-Pro-B Natriuret Pep Total Protein 6.6 Albumin 3.5 Globulin 3.1 Albumin/Globulin Ratio 1.1 Urine Color Urine Appearance Urine pH Ur Specific [place] Urine Protein Urine Glucose (UA) Urine Ketones Urine Occult Blood Urine Nitrate Urine Bilirubin Urine Urobilinogen Ur Leukocyte Esterase Urine RBC Urine WBC Ur Squamous Epith Cells Urine Bacteria Ur Culture Indicated? Digoxin SARS-CoV-2 (PCR) 10/15/20 10/15/20 10/15/20 16:50 20:15 20:15 WBC RBC Hgb Hct MCV MCH MCHC RDW Plt Count Neut % (Auto) Lymph % (Auto) [place] % (Auto) Eos % (Auto) Baso % (Auto) Neut # (Auto) Lymph # (Auto) [place] # (Auto) Eos # (Auto) Baso # (Auto) Sodium Potassium Chloride Carbon Dioxide BUN Creatinine Estimated GFR BUN/Creatinine Ratio Glucose Hemoglobin A1c Calcium Magnesium 1.7 Total Bilirubin AST ALT Alkaline Phosphatase NT-Pro-B Natriuret Pep Total Protein Albumin Globulin Albumin/Globulin Ratio Urine Color Urine Appearance Urine pH Ur Specific [place] Urine Protein Urine Glucose (UA) Urine Ketones Urine Occult Blood Urine Nitrate Urine Bilirubin Urine Urobilinogen Ur Leukocyte Esterase Urine RBC Urine WBC Ur Squamous Epith Cells Urine Bacteria Ur Culture Indicated? Digoxin 1.1 SARS-CoV-2 (PCR) Negative 10/16/20 10/16/20 04:50 05:50 WBC RBC Hgb Hct MCV MCH MCHC RDW Plt Count Neut % (Auto) Lymph % (Auto) [place] % (Auto) Eos % (Auto) Baso % (Auto) Neut # (Auto) Lymph # (Auto) [place] # (Auto) Eos # (Auto) Baso # (Auto) Sodium 132 L Potassium 5.0 Chloride 102 Carbon Dioxide 23 BUN 26 H Creatinine 1.76 H Estimated GFR 28.2 L BUN/Creatinine Ratio 14.8 Glucose 298 H Hemoglobin A1c Calcium 8.2 L Magnesium Total Bilirubin 0.4 AST 17 ALT 11 Alkaline Phosphatase 158 H NT-Pro-B Natriuret Pep 2920 H Total Protein 6.0 L Albumin 3.1 L Globulin 2.9 Albumin/Globulin Ratio 1.1 Urine Color Yellow Urine Appearance Clear Urine pH 5.0 Ur Specific [place] 1.020 Urine Protein 2+ H Urine Glucose (UA) 1+ H Urine Ketones Trace H Urine Occult Blood Trace-lysed Urine Nitrate Negative Urine Bilirubin Negative Urine Urobilinogen 0.2 Ur Leukocyte Esterase 1+ H Urine RBC None seen Urine WBC 10-30/hpf H Ur Squamous Epith Cells 1-5 /hpf Urine Bacteria Moderate (10-30) H Ur Culture Indicated? Specimen cultured Digoxin SARS-CoV-2 (PCR) [facility] Medical History (Updated 10/15/20 @ 20:07 by KOREY Hernandez-LUDY) Acute pancreatitis CHF (congestive heart failure) Diabetes mellitus type 2 in obese Essential hypertension Myocardial infarction Plaque psoriasis Surgical History History of appendectomy History of bilateral hip replacements History of cholecystectomy History of left knee surgery History of surgery on right wrist Family History Mother Congestive heart failure Brother Congestive heart failure Social History household members: family and children Smoking Status: Never smoker alcohol intake: never Assessment & Plan Assessment & Plan narrative: This is a 75 year old female with a right wrist fracture immediately following a healed left arm fracture. She has a history of OR without stent placement in 2019 along with cognitive impairment and CHF, hypertension, GERD, hyperlipidemia , and diabetes type 2. 1. Right Nondisplaced humeral neck/proximal shaft humerus fracture-pathologic, due to mechanical fall on incline, in the setting of osteopenia, acute, present on admission -in the ED the patient was unable to ambulate at all even with assistance and was unable to go home. It also should be noted that patient just had a cast from a left arm fracture removed 1 week ago. -patient's right arm is in a volar splint and sling -continue bedrest, fall precautions in place -manage patient's pain hydration and comfort -physical therapy, occupational therapy. 2. Non insulin-dependent type 2 diabetes, acute on chronic, present on admission -on diabetes protocol, blood sugar checks a.c. HS -A1c 10.3 -continue metformin 3. Cognitive impairment, acute on chronic, present on admission -recommend neuro follow-up for evaluation -CT brain negative on 10/16/20 -patient on fall precautions -patient has been frequently falling with significant fractures and injuries, patient should be considered for placement for safety. 4. Congestive heart failure, EF of 32-41%, chronic, present on admission -continue Plavix, spirolactone, torsemide, potassium, digoxin -dig level 1.1 5. hypertension essential, acute on chronic, present on admission -continue lisinopril, metoprolol 6. hyperlipidemia, chronic, present on admission -continue colestipol, atorvastatin 7. GERD, chronic, present on admission -continue pantoprazole 8. Altered Mental Status, present on admission. Active. -UTI, Anxiety, possible dementia -treat UTI with Ceftriaxone pending UC results -treat Anxiety with Alprazolam and family companionship. Add Haldol/Abilify if needed. -Doubt Digoxin side effect as level is only 1.1 and there are no GI symptoms. -No Subdural or Epidural Hematoma or brain bleed on CT brain 10/16/20 9. UTI, present on admission. Active -Ceftriaxone while UC pending -UA with 10-30 WBC Code status: Full code Surrogate decision maker:Kenia Chu Grand daughter DVT VTE prophylaxis: SCDs, Lovenox 40 Estimated length of stay: Greater than 2 midnight Quality VTE Deep Vein Thrombosis/Pulmonary Embolism Present on Admission: No
[2020-10-16] MEDS: HYDROMORPHONE 1 MG INJ IV ×4 (08:25→21:04)
[2020-10-16] MEDS: INSULIN LISPRO 100 UNIT/ML 3ML VIAL SUBCUT ×3 (08:27→18:17)
[2020-10-16] MEDS: ALPRAZolam 0.25 MG TABLET PO (08:29)
[2020-10-16] MEDS: ENOXAPARIN 30 MG/0.3 ML SYRINGE SUBCUT (08:34)
--- NOTE | 2020-10-16 08:49 | PT-IP ANOTE ---
PT order received. Pt admitted after fall and right sided pain. Per chart, pt found to have nondisplaced right humeral neck fracture and right wrist fracture on diagnostic imaging. Dr. Verde's note this morning has pt on strict bed rest and fall precautions. During PT's time in office reviewing charts, pt is screaming/crying loudly on and off for over 20 minutes. Will hold PT at this time until cleared for OOB by doctor and pt is calmer and able to participate in skilled assessment. PT does not see an orthopedic note yet. PT does note that pt had two episodes of weakness when getting up with nursing staff. When cleared by doctor, recommend orthostatic assessment as possible reason for falling.
--- NOTE | 2020-10-16 10:47 | DI.CT.S_ITS ---
PROCEDURE: CT HEAD/BRAIN WO CON INDICATIONS: Hallucinations TECHNIQUE: Noncontrast 4.5 mm thick angled axial sections acquired from the foramen magnum to the vertex, with coronal and sagittal reformats. For radiation dose reduction, the following was used: automated exposure control, adjustment of mA and/or kV according to patient size. COMPARISON: [facility], CT, CT HEAD/BRAIN WO CON, 08/28/2020, 14:54. FINDINGS: Image quality: Excellent. CSF spaces: Basal cisterns are patent. No extra-axial fluid collections. The ventricles are symmetric in size and shape. Brain: No intracranial bleeds or masses. There is cerebral volume loss for age, with resultant ventricular and sulcal prominence. There are periventricular and deep white matter chronic small vessel ischemic changes. There is intracranial internal carotid artery atherosclerosis. Skull and face: Calvarium and visualized facial bones appear intact, without suspicious lesions. Sinuses: Visualized sinuses and mastoids are clear. IMPRESSION: Stable findings. No evidence acute stroke hemorrhage, or mass Dictated by: Sherif Bourne M.D. on 10/16/2020 at 11:57 Approved by: Sherif Bourne M.D. on 10/16/2020 at 11:59
[2020-10-16] MEDS: ACETAMINOPHEN 325 MG TABLET 650 MG PO (11:08)
[2020-10-16] MEDS: cefTRIAXone 1,000 MG in SODIUM CHLORIDE 0.9% 100 ML 200 ML IV (11:08)
[2020-10-16] MEDS: SPIRONOLACTONE 25 MG TABLET 12.5 MG PO (11:40)
[2020-10-16] MEDS: ASPIRIN EC 81 MG TABLET PO ×2 (11:40→20:53)
[2020-10-16] MEDS: DOCUSATE 100 MG CAPSULE PO (11:40)
[2020-10-16] MEDS: SERTRALINE 50 MG TABLET PO (11:41)
[2020-10-16] MEDS: METOPROLOL IR 50 MG TABLET 100 MG PO ×2 (11:41→20:52)
[2020-10-16] MEDS: lisinopriL 5 MG TABLET PO ×2 (11:41→20:59)
[2020-10-16] MEDS: CLOPIDOGREL 75 MG TABLET PO (11:41)
[2020-10-16] MEDS: POTASSIUM CHLORIDE 10 MEQ TAB PO (11:41)
[2020-10-16] MEDS: PANTOPRAZOLE DR 40 MG TABLET PO (11:51)
[2020-10-16] MEDS: TORSEMIDE 10 MG TABLET 20 MG PO ×2 (11:51→20:53)
[2020-10-16] MEDS: COLESTIPOL 1 GM TABLET PO ×2 (13:38→23:49)
--- NOTE | 2020-10-16 15:58 | CM.DANOTE ---
DCP ASSESSMENT: Patient is a 75 year-old female admitted for a humorous fracture. PCP is Oliver Ibrahim. Primary payer is Medicare and [facility]. Therapy evaluations pending. Patient has had two ER hospital admissions in August 24 & 2020. CAN MARKER Student met with patient at bedside this morning. She was alert but, would not speak she would answer direct questions with yes or no nod of the head only. CAN MARKER Student met with son-in-law Keon later in the morning, he was at bedside, per his reports patient is fairly independent at baseline ambulating with a cane or FWW and goal directed. Called and spoke with daughter Mago she reported when her mother is medically stable she is fairly independent at baseline and uses good judgement. She uses either a cane, FWW or wheel chair as needed. Daughter Mago reported patient had an issue with hallucinations and delusions with last arm injury. Patient went to [facility] for approximately one week in August after being D/C?d from [facility]. Since then patient has been at home with home health physical therapy. Mago is unsure of home health agency name. Daughter Mago said they are new to the area within the last year but, her mother is following up without patient nephrology and they plan to follow-up with a neurologist as an outpatient for the cognitive concerns. Discussed D/C options with Mago. She is open to either SNF placement or Home with Home Health depending on which options is indicated at time of D/C. [facility] is her first choice and [facility] is the second. Called and Kimmie at [facility] she is reviewing for placement also, called Leonard at [facility] and faxed clinicals for review. PLAN: Continue to follow closely for D/C planning SNF vs Home with Home Health: pending therapy evaluations and medical/mental stability. Will follow-up with [facility] and [facility] as indicated. If home health is indicated will reach out to local Home Health agencies to assist in reestablishing services. CRISTI Shaw MSW Student Discharge Planning/Care Management CM Discharge Assessment Start: 10/16/20 14:03 Freq: Status: Active Protocol: Document 10/16/20 14:03 AL (Rec: 10/16/20 14:09 AL [id number]) Discharge Planning Assessment Assigned Pharmacy Cashier CRISTI Hernandez Student Contact Information Mago Giang, daughter Advance Directives? Yes Advance Directives on File No History Provided By Family Member,Medical Record Has Patient been admitted in last 30 Yes days? Comment 08/24 and 08/28 falls Prior Living Arrangements House Household Members family,children Type of transporation used prior to Drives own vehicle admit Comment She drives and her children and grandschildren also, help provide trasportation as needed. Independent with ADL's Yes Is patient alert and oriented? No: Patient was not talking during meeting. She shock her head only Comment At baseline patient is oriented x4 and takes care of chores around the house including cooking, laundry and making her bed. Caregiver for Another No Comment Per daughter Mago she has home health services DME Already Rented / Owned FWW / Walker,Cane Comment Patient uses devices: Cane, FWW or Wheel chair as needed Comment [facility] vs home with home health Barriers to Discharge No Discharge Plan Home Transportation Arrangement Family to provide transportaion either daughter Mago or son-in-law Keon Additional Comment Pending D/C plan Whiteboard Updated in Patient Room with Yes name and ext. # of Pharmacy Cashier Review Status In Process
[2020-10-16] MEDS: DIGOXIN 0.125 MG TABLET PO (18:17)
[2020-10-16] MEDS: ATORVASTATIN 20 MG TABLET 40 MG PO (20:52)
[2020-10-16] MEDS: INSULIN GLARGINE 100 UNIT/ML 3ML PEN 20 UNIT SUBCUT (20:54)
[2020-10-16] MEDS: SENNOSIDES 8.6 MG TABLET 17.2 MG PO (20:59)
[2020-10-17] VITALS (12 sets, daily range): BP systolic 135–186; BP diastolic 49–80; PULSE 65–73; RESP 14–22; TEMP 36.1–37.1; O2SAT 94–100
[2020-10-17] MEDS: HYDROMORPHONE 1 MG INJ IV ×6 (04:54→19:39)
[2020-10-17] MEDS: SODIUM CHLORIDE 0.9% 500 ML 40 ML IV ×2 (05:20→22:13)
[2020-10-17 05:27] LABS: Alanine Aminotransferase 10 IU/L (<35); Albumin 2.9 g/dL (3.5-5.0); Alkaline Phosphatase 145 U/L (38-126); Aspartate Aminotransferase 19 IU/L (14-36); BUN Creatinine Ratio 15.5 (6-22); Bilirubin Total 0.4 mg/dL (0.2-1.3); Blood Urea Nitrogen 30 mg/dL (7-17); Calcium 8.2 mg/dL (8.4-10.2); Carbon Dioxide 24 mmol/L (22-32); Chloride 102 mmol/L (98-107); Estimated Glomerular Filt Rate 25.2 mL/min (>60); Globulin 2.8 g/dL (1.7-4.1); Glucose 146 mg/dL (80-110); HEMOLYSIS < 15 (0-50); Sodium 130 mmol/L (137-145); Total Protein 5.7 g/dL (6.3-8.2)
[2020-10-17 05:37] LABS: Potassium 5.3 mmol/L (3.4-5.1)
--- NOTE | 2020-10-17 07:04 | PC.NURSE ---
Patient has had poor urine output and when asked if she could try to go she said no. Patient was informed that she would have to get bladder scanned and she screamed NO. LEENA Tavera was notified and RN was told a scan needed to happen. Patient still refused but agreed to bedpan.
--- NOTE | 2020-10-17 07:40 | P.PN_ITS ---
Subjective Subjective Date Patient Seen: 10/17/20 Interval history: Her daughter is with her today and she is much much calmer. She tells me that my office door was closed, even though it was right across the hallway from her, so she was frightened yesterday. She says that she does not f eel any better. Her sodium level has dropped slightly to 130. The potassium is 5.3 so the potassium chloride supplementation will be stopped. The creatinine is 1.94. The albumin is 2.9. Her blood pressure is 157/66. She is complaining of right arm pain, this is the one in the sling. She also mentions that her 2 top [facility] placements of [facility] and [facility] are full. central services tech later clarifies that that is not necessarily the case. Exam Vital Signs (past 8 hours): - 10/17/20 00:00 10/17/20 04:00 Temperature 97.5 F L 96.9 F L Pulse Rate 68 73 Respiratory Rate 16 16 Blood Pressure 146/55 H 157/66 H Pulse Oximetry 98 96 Oxygen Delivery Method Room Air Oxygen Flow Rate 0 Narrative Exam Narrative: She is alert and oriented x3. She is still appears to be quite internally distracted. Heart is regular rate and rhythm without murmur Lungs are clear to auscultation bilaterally Abdomen is soft, bowel sounds positive, nontender, no organomegaly. Extremities have no ankle edema The right arm is in a sling. The left wrist moves normally. Objective Labs Result Diagrams: 10/15/20 09:45 10/17/20 04:55 Labs: Laboratory Results - last 24 hr 10/17/20 04:55 Sodium 130 L Potassium 5.3 H Chloride 102 Carbon Dioxide 24 BUN 30 H Creatinine 1.94 H Estimated GFR 25.2 L BUN/Creatinine Ratio 15.5 Glucose 146 H D Calcium 8.2 L Total Bilirubin 0.4 AST 19 ALT 10 Alkaline Phosphatase 145 H Total Protein 5.7 L Albumin 2.9 L Globulin 2.8 Albumin/Globulin Ratio 1.0 [facility] Medical History (Updated 10/15/20 @ 20:07 by ELIER Hernandez) Acute pancreatitis CHF (congestive heart failure) Diabetes mellitus type 2 in obese Essential hypertension Myocardial infarction Plaque psoriasis Surgical History History of appendectomy History of bilateral hip replacements History of cholecystectomy History of left knee surgery History of surgery on right wrist Family History Mother Congestive heart failure Brother Congestive heart failure Social History household members: family and children Smoking Status: Never smoker alcohol intake: never Assessment & Plan Assessment & Plan narrative: This is a 75 year old female with a right wrist fracture immediately following a healed left arm fracture. She has a history of [place] without stent placement in 2019 along with cognitive impairment and CHF, hypertension, GERD, hyperlipidemia, and diabetes type 2. 1. Right Nondisplaced humeral neck/proximal shaft humerus fracture-pathologic, due to mechanical fall on incline, in the setting of osteopenia, acute, present on admission -in the ED the patient was unable to ambulate at all even with assistance and was unable to go home. It also should be noted that patient just had a cast from a left arm fracture removed 1 week ago. -patient's right arm is in a volar splint and sling -continue bedrest, fall precautions in place -manage patient's pain hydration and comfort -physical therapy, occupational therapy. 2. Non insulin-dependent type 2 diabetes, acute on chronic, present on admission -on diabetes protocol, blood sugar checks a.c. HS -A1c 10.3 -continue metformin 3. Cognitive impairment, acute on chronic, present on admission -recommend neuro follow-up for evaluation -CT brain negative on 10/16/20 -patient on fall precautions -patient has been frequently falling with significant fractures and injuries, patient should be considered for placement for safety. 4. Congestive heart failure, EF of 32-41%, chronic, present on admission -continue Plavix, spirolactone, torsemide, potassium, digoxin -dig level 1.1 5. hypertension essential, acute on chronic, present on admission -continue lisinopril, metoprolol 6. hyperlipidemia, chronic, present on admission -continue colestipol, atorvastatin 7. GERD, chronic, present on admission -continue pantoprazole 8. Altered Mental Status, present on admission. Active. -UTI, Anxiety, possible dementia -treat UTI with Ceftriaxone pending UC results -treat Anxiety with Alprazolam and family companionship. Add Haldol/Abilify if needed. -No Subdural or Epidural Hematoma or brain bleed on CT brain 10/16/20 9. UTI, present on admission. Active -Ceftriaxone while UC pending -UA with 10-30 WBC 10. Hyponatremia. -Na slowly dropping -monitor daily. No SSRI or diuretic therapy so this may be early SIADH. Disposition is currently pending group home facility either in [place] or [place]. Code status: Full code Surrogate decision maker:Kenia Chu Grand daughter DVT VTE prophylaxis: SCDs, Lovenox 40 Quality VTE Deep Vein Thrombosis/Pulmonary Embolism Present on Admission: No
[2020-10-17] MEDS: ALPRAZolam 0.25 MG TABLET PO (09:02)
[2020-10-17] MEDS: SERTRALINE 50 MG TABLET PO (09:02)
[2020-10-17] MEDS: lisinopriL 5 MG TABLET PO ×2 (09:04→21:07)
[2020-10-17] MEDS: SPIRONOLACTONE 25 MG TABLET 12.5 MG PO (09:04)
[2020-10-17] MEDS: ASPIRIN EC 81 MG TABLET PO ×2 (09:04→21:09)
[2020-10-17] MEDS: POTASSIUM CHLORIDE 10 MEQ TAB PO (09:04)
[2020-10-17] MEDS: CLOPIDOGREL 75 MG TABLET PO (09:04)
[2020-10-17] MEDS: PANTOPRAZOLE DR 40 MG TABLET PO (09:04)
[2020-10-17] MEDS: DOCUSATE 100 MG CAPSULE PO (09:04)
[2020-10-17] MEDS: METOPROLOL IR 50 MG TABLET 100 MG PO ×2 (09:05→21:07)
[2020-10-17] MEDS: TORSEMIDE 10 MG TABLET 20 MG PO ×2 (09:05→21:00)
--- NOTE | 2020-10-17 09:07 | PT-IP ANOTE ---
Per nursing, pt is in a lot of pain and requested checking back in PM Asked nursing to clarify with MD if pt is to be bedrest for PT evaluation.
[2020-10-17] MEDS: INSULIN LISPRO 100 UNIT/ML 3ML VIAL SUBCUT ×4 (09:11→21:11)
[2020-10-17] MEDS: cefTRIAXone 1,000 MG in SODIUM CHLORIDE 0.9% 100 ML 200 ML IV (11:30)
[2020-10-17] MEDS: COLESTIPOL 1 GM TABLET PO ×2 (11:30→22:13)
--- NOTE | 2020-10-17 14:00 | PT-OP ANOTE ---
Per nsg, pt is on hold for therapy this afternoon.
--- NOTE | 2020-10-17 16:16 | CM.DPC ---
DCP Continued: Therapy evaluations were held this date per nursing. T[employer] I PARAPROFESSIONAL Student met with patient at bedside she was alert but, had difficulty engaging in conversation. Patient?s daughter Mago was present. Daughter is aware group home facilities placements are limited at this time she gave permission to look outside of the local area for placement. Called and spoke with Kimmie at [facility] x2 this date, she asked for clarification of patient insurance. Faxed Kimmie patients Medicare card at 12:47pm ( ) for continued review. Called [facility] Leonard, approval is still pending. PASRR initiated. PLAN: Continue to follow closely for D/C planning SNF vs Home with Home Health: pending therapy evaluations and medical/mental stability. Will follow-up with [facility] and [facility], will also, start faxing clinical to other facilities. If home health is indicated will reach out to local Home Health agencies to assist in reestablishing services. CRISTI Shaw MSW Student
--- NOTE | 2020-10-17 16:17 | OT.IPNOTE ---
Attempted to see x2. Per nursing, pt is no appropriate at this time d/t AMS. Will hold and continue to follow. Pt is also still on bed rest order.
[2020-10-17 16:33] LABS: BUN Creatinine Ratio 16.8 (6-22); Blood Urea Nitrogen 30 mg/dL (7-17); Calcium 8.4 mg/dL (8.4-10.2); Carbon Dioxide 21 mmol/L (22-32); Chloride 100 mmol/L (98-107); Estimated Glomerular Filt Rate 27.6 mL/min (>60); Glucose 208 mg/dL (80-110); HEMOLYSIS < 15 (0-50); Potassium 5.3 mmol/L (3.4-5.1); Sodium 129 mmol/L (137-145)
[2020-10-17] MEDS: DIGOXIN 0.125 MG TABLET PO (17:04)
[2020-10-17] MEDS: ATORVASTATIN 20 MG TABLET 40 MG PO (21:07)
[2020-10-17] MEDS: SENNOSIDES 8.6 MG TABLET 17.2 MG PO (21:08)
[2020-10-17] MEDS: INSULIN GLARGINE 100 UNIT/ML 3ML PEN 20 UNIT SUBCUT (21:13)
[2020-10-18] VITALS (13 sets, daily range): BP systolic 138–182; BP diastolic 63–74; PULSE 68–76; RESP 16–20; TEMP 36–36.6; O2SAT 92–100
[2020-10-18] MEDS: HYDROMORPHONE 2 MG TABLET PO ×4 (01:01→21:38)
[2020-10-18] MEDS: LORazepam 2 MG/ML INJ 1 MG IV (03:41)
--- NOTE | 2020-10-18 03:52 | PC.NURSE ---
During initial assessment patient was calm and cooperative and when asked how she was, patient stated at peace. After the consulting sme asked patient how her pain was, and the patient became very upset, moaning, stating that it hurts, it hurts so bad, make it stop. Patient was given 2mg PO Dilaudid at 0101. At re-evaluation, patient was still calling out at random stating that it still hurt. It was explained to the patient that the PO medication will take longer than the IV medication, however patient was still upset. LEENA Tavera was called at 0145 and 1mg Ativan was ordered. Patient did not call out again until 0345. When RN entered the room, the patient was screaming to make it stop and that it hurt everywhere. Patient was given 1mg Ativan and patient began to calm down and allow for BG check and BP to be checked. Will continue to monitor.
[2020-10-18 06:01] LABS: Alanine Aminotransferase 10 IU/L (<35); Albumin 2.9 g/dL (3.5-5.0); Alkaline Phosphatase 141 U/L (38-126); Aspartate Aminotransferase 17 IU/L (14-36); BUN Creatinine Ratio 17.2 (6-22); Bilirubin Total 0.3 mg/dL (0.2-1.3); Blood Urea Nitrogen 30 mg/dL (7-17); Calcium 8.2 mg/dL (8.4-10.2); Carbon Dioxide 21 mmol/L (22-32); Chloride 100 mmol/L (98-107); Estimated Glomerular Filt Rate 28.5 mL/min (>60); Globulin 2.8 g/dL (1.7-4.1); Glucose 203 mg/dL (80-110); HEMOLYSIS < 15 (0-50); Potassium 4.9 mmol/L (3.4-5.1); Sodium 128 mmol/L (137-145); Total Protein 5.7 g/dL (6.3-8.2)
[2020-10-18] MEDS: SODIUM CHLORIDE 0.9% 500 ML 40 ML IV (06:48)
[2020-10-18] MEDS: PANTOPRAZOLE DR 40 MG TABLET PO (06:49)
[2020-10-18] MEDS: DOCUSATE 100 MG CAPSULE PO (09:17)
[2020-10-18] MEDS: CLOPIDOGREL 75 MG TABLET PO (09:17)
[2020-10-18] MEDS: TORSEMIDE 10 MG TABLET 20 MG PO ×2 (09:18→21:38)
[2020-10-18] MEDS: lisinopriL 5 MG TABLET PO ×2 (09:18→21:37)
[2020-10-18] MEDS: ENOXAPARIN 30 MG/0.3 ML SYRINGE SUBCUT (09:18)
[2020-10-18] MEDS: ASPIRIN EC 81 MG TABLET PO ×2 (09:18→21:37)
[2020-10-18] MEDS: METOPROLOL IR 50 MG TABLET 100 MG PO ×2 (09:18→21:37)
[2020-10-18] MEDS: SERTRALINE 50 MG TABLET PO (09:18)
[2020-10-18] MEDS: INSULIN LISPRO 100 UNIT/ML 3ML VIAL SUBCUT ×3 (09:19→17:04)
--- NOTE | 2020-10-18 09:53 | PC.NURSE ---
Addendum entered by Mariana Beckett R.N. 10/18/20 13:52: Patients daughter just left, so far patient has been calm and cooperative. Her lunch time blood sugar is 170 and 2u of insulin given. Her daughter has been a big help today. Patient is resting now. Original Note: Patient has a cast and splint with slinge to her r.arm. Daughter in room, patient slept until around 0900. She has some anxiety issues and does complain of pain to r.arm. Given 2mg of po dilaudid, patient incontinent in her brief and refusing to turn, we will have to approach patient calmly and then change her brief, this will take 2 people. Daughter stepped out of room. She took her medication for her daughter. Resting at the moment. Will check on patient soon.
[2020-10-18] MEDS: COLESTIPOL 1 GM TABLET PO ×2 (10:15→22:09)
[2020-10-18] MEDS: cefTRIAXone 1,000 MG in SODIUM CHLORIDE 0.9% 100 ML 200 ML IV (10:15)
--- NOTE | 2020-10-18 11:25 | PT.IIE ---
Current Diagnoses Type 2 diabetes mellitus with other specified complication (10/15/20) Hyperlipidemia, unspecified (10/15/20) Other symptoms and signs involving cognitive functions and awareness (10/15/20) Medical History (Last Updated 10/15/20 @ 20:07 by [facility]) Acute pancreatitis CHF (congestive heart failure) Diabetes mellitus type 2 in obese Essential hypertension Myocardial infarction Plaque psoriasis Physical Therapy Inpatient Evaluation/Re-Eval M1 PT/OT-IP Prior Functional Status Start: 10/16/20 08:43 Freq: Status: Active Protocol: Document 10/18/20 11:25 AB (Rec: 10/18/20 13:43 AB [id number]) Medical Review Prior Functional Status Medical History Reviewed Yes Communication pt with confusion and lethargic but able to respond to questions Mobility and Gait per pt's daughter, pt is modified independent with all mobilities and ambulation without AD indoors but uses a sure step cane for outdoor mobility (daughter stated pt can ambulate ~ 50ft at most); uses a manual w/c for long distance mobility; pt was still able to drive Prior Functional Level (Other details) daughter stated that pt had a fall last August and sustained a L UE fracture and just recovered from that fx and cast was just removed last october 12. pt had another fall a few days ago and now sustained a R humeral and ulnar fx. Social History Household Members family,children Living Arrangements House Number of Floors (Floors) One Floor Number of Stairs To Enter/Railing? 2 steps with R rail ascending to enter the house Home Environment Standard Height Toilet,Tub/ Shower Home Equipment Manual Wheelchair,Raised Toilet Seat Without Armrests, Tub Transfer Bench,Shower Seat with Backrest,Hand Held Shower,Grab Bars Near Toilet, Grab Bars In Shower Additional Social History Comment has a sure step cane M2 PT-IP Current Condition Start: 10/16/20 08:43 Freq: Status: Active Protocol: Document 10/18/20 11:25 AB (Rec: 10/18/20 13:43 AB [id number]) Physical Therapy Current Condition Current Condition Evaluation Date 10/18/20 Treatment Diagnosis R humeral/ular fx; difficulty in walking Precautions Shoulder Precautions Sling Brace R volar splint with sling on Weight Bearing Status Weight Bearing Status Non-Weight Bearing Allowed Weight Bearing Amount (enter % RUE NWB or #) (%) M3 PT-IP Subjective Start: 10/16/20 08:43 Freq: Status: Active Protocol: Document 10/18/20 11:25 AB (Rec: 10/18/20 13:43 AB [id number]) Subjective Physical Therapy Visit Type Type Initial Evaluation Visit Start Time 11:25 Visit Stop Time 12:15 Total Visit Minutes 50 Notes talked to nurse regarding bedrest order and nurse changed order to up ad maxime. Number of MEDICAL TECHNOLOGIST CHIEF Visits 0 Physical Therapy Visit Comments Patient Comments requesting to use the toilet Therapy Pain Assessment Pain When Pain Assessed At Rest Pain Present Pain Present Pain Reported Location Generalized Scale Used pain scale not stated Pain Behaviors Calling Out,Wincing Pain Management Techniques Distraction,Modification of Treatment,Re-positioning, Timing of Activity with Medications M4 PT-IP Mobility and Gait Start: 10/16/20 08:43 Freq: Status: Active Protocol: Document 10/18/20 11:25 AB (Rec: 10/18/20 13:43 AB [id number]) PT-Bed Mobility Assessment Supine to Sit Supine to Sit Maximum Assistance,2 Person Assistance,Head of Bed Elevated,Bedrails Sit to Supine Sit to Supine Total Assistance,2 Person Assistance PT-Transfer Assessment Sit to and From Stand Sit to and from Stand Maximum Assistance,Total Assistance,2 Person Assistance ,Use of Upper Extremities Equipment Transfer Assistive Device Gait Belt Orthotic/Prosthetic Devices or Brace: Yes Transfers Transfer Destination Bed,Toilet Transfer Ability Level of Assist Maximum Assistance,Total Assistance,2 Person Assistance Comments Mobility Comments pt requesting to use the toilet. pt with hypersensitivity to pain and c /o pain with slight movement even on unaffecting areas. completed supine to sit max A x 2 to total Ax 2 and max cues . pt requires max A to maintain sitting balance on EOB. completed sit to stand max A x 2 from EOB and complete stand pivot without AD max A x 2. pt with increase forward leaning in seating and requires constant cues for upright posture and safety. pt is lethargic. completed sit to stand from bedside commode max A x 2 and max cues. required max A to maintain standing balance using quad cane while NAC assisted with hygiene care and brief management. pt has to sit back down on bedside commode. c/o increase pain with increase resistance and guarding during standing. attempted sit to stand again but unable to complete. assisted pt back to bed total A x 2-3 squat pivot. total A x 2 with sit to supine. positioned pt on the bed. nanotechnology engineering technician took over pt's care for CT scan. 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 Impaired Gross Range of Motion Lower Extremity ROM Assessment Right Impaired Impairments c/o pain with RLE movement Strength Comments Strength Comments unable to follow instructions for MMT M6 PT-IP Treatment Start: 10/16/20 08:43 Freq: Status: Active Protocol: Document 10/18/20 11:25 AB (Rec: 10/18/20 13:43 AB [id number]) Physical Therapy Treatment Education Education Provided Precautions,Weight Bearing Status,Safety M7 PT-IP Assessment and Plan Start: 10/16/20 08:43 Freq: Status: Active Protocol: Document 10/18/20 11:25 AB (Rec: 10/18/20 13:43 AB [id number]) PT Summary Assessment and Plan Potential Rehabilitation Potential Fair Status of Condition at Evaluation Evolving Summary Impairments Pain,ROM,Strength,Balance, Coordination,Sensation,Tone, Cognition,Bed Mobility, Transfers,Gait,Activity Tolerance Assessment Summary pt requiring max A x 2 to total Ax 2-3 with mobility. pt is unable to tolerate much activity with c/o increase generalized pain. will continue to assess progress but at this time, pt will required SNF rehab. Goals Bed Mobility Goal Minimal Assistance Transfer Goal Minimal Assistance,Cane Gait Goal Minimal Assistance,Cane Gait Distance 25 Other Goals up/down 2 steps R rail min A Days to Meet Goals 10 Frequency of Treatment Frequency Of Treatment Once a Day Treatment Plan Physical Therapy Treatment Plan Bed Mobility Training,Transfer Training,Gait Training, Therapeutic Exercise,Balance Retraining,Post Op Education, Discharge Planning,Hot or Cold Pack,Neuromuscular Re-ed, Coordination Retraining,Manual Therapy Precautions Shoulder Precautions Sling Other Precautions NWB RUE Recommendations To Nursing Amount of Assist Needed Mechanical Lift Discharge Recommendations PT Discharge Recommendations SNF Rehab Transportation Needs at Discharge Wheelchair/Cabulance
--- NOTE | 2020-10-18 11:53 | DI.CT.S_ITS ---
PROCEDURE: CT PEL WO CON INDICATIONS: R hip, greater trochanter pain TECHNIQUE: Noncontrast 3 mm axial sections acquired through the bony pelvis, with coronal and sagittal reformatting. COMPARISON: [facility], CR, XR HIP W PEL IF DONE RT 2V, 10/15/2020, 10:19. [facility], CT, CT ABDOMEN PELVIS W CON, 08/24/2020, 23:50. FINDINGS: Image quality: Suboptimal secondary to streak artifact from arthroplasty hardware. Bones: There is subtle cortical step-off seen at the subtrochanteric lateral femoral cortex for example image 38/4. Suboptimal evaluation secondary to in the area of streak artifact, nonetheless suspicious for periprosthetic fracture. Diffuse osteopenia. Soft tissues: Scattered vascular calcifications. There is right hip subcutaneous edema in keeping with contusion IMPRESSION: Subtle periprosthetic fracture involving the subtrochanteric lateral right femoral cortex. Please correlate to point tenderness. Recommend radiographic follow-up. Right hip contusion/subcutaneous edema. Dictated by: Keon Alcantara M.D. on 10/18/2020 at 13:34 Approved by: Keon Alcantara M.D. on 10/18/2020 at 13:48
--- NOTE | 2020-10-18 15:09 | OT.IPNOTE ---
Spoke to Hospitalist regarding recent CT of pelvis, per report Subtle periprosthetic fracture involving the subtrochanteric lateral right femoral cortex. Per Hospitalist hold on getting the pt up at this time and have nursing put pt on bed rest. To check on pt tomorrow for appropriateness of Ot eval.
--- NOTE | 2020-10-18 16:20 | P.PN_ITS ---
Subjective Subjective Interval history: She continued to complain of right hip pain. She also was given Ativan overnight and today is drowsy and lethargic. Exam Vital Signs (past 8 hours): - 10/18/20 09:00 10/18/20 10:41 10/18/20 12:50 Temperature 96.8 F L 97.2 F L Pulse Rate 73 73 73 Respiratory Rate 16 16 16 Blood Pressure 182/74 H 138/63 Pulse Oximetry 92 96 97 Oxygen Delivery Method Room Air Oxygen Flow Rate 0 Narrative Exam Narrative: GEN: drowsy and lethargic CV: regular rate and rhythm without murmur PULM: clear to auscultation bilaterally ABD: soft, bowel sounds positive, nontender, no organomegaly. EXT: no ankle edema, R hip pain on palpation The right arm is in a sling. The left wrist moves normally. Objective Labs Result Diagrams: 10/15/20 09:45 10/18/20 05:05 Labs: Laboratory Results - last 24 hr 10/17/20 10/18/20 16:16 05:05 Sodium 129 L 128 L Potassium 5.3 H 4.9 Chloride 100 100 Carbon Dioxide 21 L 21 L BUN 30 H 30 H Creatinine 1.79 H 1.74 H Estimated GFR 27.6 L 28.5 L BUN/Creatinine Ratio 16.8 17.2 Glucose 208 H 203 H Calcium 8.4 8.2 L Total Bilirubin 0.3 AST 17 ALT 10 Alkaline Phosphatase 141 H Total Protein 5.7 L Albumin 2.9 L Globulin 2.8 Albumin/Globulin Ratio 1.0 [facility] Medical History (Updated 10/15/20 @ 20:07 by ELIER Hernandez) Acute pancreatitis CHF (congestive heart failure) Diabetes mellitus type 2 in obese Essential hypertension Myocardial infarction Plaque psoriasis Surgical History History of appendectomy History of bilateral hip replacements History of cholecystectomy History of left knee surgery History of surgery on right wrist Family History Mother Congestive heart failure Brother Congestive heart failure Social History household members: family and children Smoking Status: Never smoker alcohol intake: never Assessment & Plan Assessment & Plan narrative: his is a 75 year old female with a right wrist fracture immediately following a healed left arm fracture. She has a history of ID without stent placement in 2019 along with cognitive impairment and CHF, hypertension, GERD, hyperlipidemia, and diabetes type 2. 1. Right Nondisplaced humeral neck/proximal shaft humerus fracture-pathologic, due to mechanical fall on incline, in the setting of osteopenia, acute, present on admission -in the ED the patient was unable to ambulate at all even with assistance and was unable to go home. It also should be noted that patient just had a cast from a left arm fracture removed 1 week ago. -patient's right arm is in a volar splint and sling -continue bedrest, fall precautions in place -manage patient's pain hydration and comfort -physical therapy, occupational therapy. 2. R periprosthetic fracture in subtrochanteric lateral right femoral cortex -consult orthopedic -bedrest until eval by ortho -pain treatment as above 3. Non insulin-dependent type 2 diabetes, acute on chronic, present on admission -on diabetes protocol, blood sugar checks a.c. HS -A1c 10.3 -stop metformin -continue insulin 4. Cognitive impairment, acute on chronic, present on admission -recommend neuro follow-up for evaluation -CT brain negative on 10/16/20 -patient on fall precautions -patient has been frequently falling with significant fractures and injuries, patient should be considered for placement for safety. 5. Congestive heart failure, EF of 32-41%, chronic, present on admission -continue Plavix, spirolactone, torsemide, potassium, digoxin -dig level 1.1 6. hypertension essential, acute on chronic, present on admission -continue lisinopril, metoprolol 7. hyperlipidemia, chronic, present on admission -continue colestipol, atorvastatin 8. GERD, chronic, present on admission -continue pantoprazole 9. Altered Mental Status, present on admission. Active. -UTI, Anxiety, possible dementia -treat UTI with Ceftriaxone pending UC results -treat Anxiety with family, careful with ativan -No Subdural or Epidural Hematoma or brain bleed on CT brain 10/16/20 9. UTI, present on admission. Active -Ceftriaxone while UC pending -UA with 10-30 WBC 10. Hyponatremia. -Na slowly dropping -monitor daily. No SSRI or diuretic therapy so this may be early SIADH. Quality VTE Deep Vein Thrombosis/Pulmonary Embolism Present on Admission: No
--- NOTE | 2020-10-18 16:36 | PT-IP ANOTE ---
PT eval completed prior to CT imaging procedure. Pt with orders of up ad maxime at the time of PT eval. checked on CT result: Subtle periprosthetic fracture involving the subtrochanteric lateral right femoral cortex. Doctor's progress note 10/18/20 at 1624: pt back on bed rest order pending ortho consult. will f/u tomorrow.
[2020-10-18] MEDS: DIGOXIN 0.125 MG TABLET PO (17:03)
[2020-10-18] MEDS: ATORVASTATIN 20 MG TABLET 40 MG PO (21:37)
[2020-10-18] MEDS: SENNOSIDES 8.6 MG TABLET 17.2 MG PO (21:37)
[2020-10-18] MEDS: INSULIN GLARGINE 100 UNIT/ML 3ML PEN 20 UNIT SUBCUT (21:40)
[2020-10-19] VITALS (10 sets, daily range): BP systolic 141–187; BP diastolic 55–75; PULSE 56–85; RESP 16–18; TEMP 36.1–36.9; O2SAT 94–99
[2020-10-19] MEDS: QUETIAPINE 25 MG TABLET 12.5 MG PO (03:17)
[2020-10-19] MEDS: INSULIN LISPRO 100 UNIT/ML 3ML VIAL SUBCUT ×4 (03:19→21:03)
[2020-10-19] MEDS: HYDROMORPHONE 2 MG TABLET PO ×2 (05:14→18:44)
[2020-10-19 05:57] LABS: Hematocrit 24.6 % (36-46); Hemoglobin 8.3 g/dL (12.0-16.0); Mean Corpuscular Hemoglobin 29.6 PG (26-34); Mean Corpuscular Volume 87.1 fL (80-100); Platelet Count 271 X10^3/uL (150-400); Red Blood Cell Count 2.82 X10^6/uL (4.0-5.2); Red Cell Distribution Width 13.4 % (11.6-14.8); White Blood Cell Count 7.3 X10^3/uL (4.5-11.0)
[2020-10-19 06:02] LABS: BUN Creatinine Ratio 18.9 (6-22); Blood Urea Nitrogen 27 mg/dL (7-17); Calcium 8.2 mg/dL (8.4-10.2); Carbon Dioxide 21 mmol/L (22-32); Chloride 101 mmol/L (98-107); Estimated Glomerular Filt Rate 35.8 mL/min (>60); Glucose 153 mg/dL (80-110); Potassium 4.8 mmol/L (3.4-5.1); Sodium 129 mmol/L (137-145)
[2020-10-19] MEDS: PANTOPRAZOLE DR 40 MG TABLET PO (06:11)
[2020-10-19] MEDS: SODIUM CHLORIDE 0.9% 500 ML 40 ML IV ×2 (06:12→18:45)
[2020-10-19 06:42] LABS: HEMOLYSIS 62 (0-50)
--- NOTE | 2020-10-19 07:18 | PC.NURSE ---
Addendum entered by Amarilis Wagner R.N. 10/19/20 07:39: Patient had saturated brief at 0000 and personal shirt was wet as well. Patient agreed to cutting off shirt to get shirt off rather than lifting it over her head. Original Note: Patients IV was occulted at shift change and IV was removed at 0030. The Acute care nurses tried 6 attempts at a new IV placement but were unsuccessful. At 0600 an ED nurse came to the unit and was able to place a 20 in the LAC. NS was started again at 40 mL/hr and the patient is resting in bed with no other complaints.
[2020-10-19] MEDS: TORSEMIDE 10 MG TABLET 20 MG PO ×2 (09:17→21:16)
[2020-10-19] MEDS: CLOPIDOGREL 75 MG TABLET PO (09:17)
[2020-10-19] MEDS: COLESTIPOL 1 GM TABLET PO ×2 (09:17→23:05)
[2020-10-19] MEDS: ENOXAPARIN 40 MG/0.4 ML SYRINGE SUBCUT (09:17)
[2020-10-19] MEDS: METOPROLOL IR 50 MG TABLET 100 MG PO ×2 (09:18→20:59)
[2020-10-19] MEDS: SERTRALINE 50 MG TABLET PO (09:18)
[2020-10-19] MEDS: DOCUSATE 100 MG CAPSULE PO (09:18)
[2020-10-19] MEDS: ASPIRIN EC 81 MG TABLET PO ×2 (09:21→20:59)
[2020-10-19] MEDS: lisinopriL 5 MG TABLET PO ×2 (09:21→20:59)
--- NOTE | 2020-10-19 09:22 | OT.IPNOTE ---
Hold pt from OT eval until after orthopedic consult. Pt is on bedrest for now.
--- NOTE | 2020-10-19 09:53 | PC.NURSE ---
Addendum entered by Mariana Beckett R.N. 10/19/20 13:34: Patient is much more alert and oriented x3 this afternoon, her pain is more controlled and she is not crying out. She has used the bed christy today and been incontinent x2 in her brief.. She has a consult with ortho sometime today. Patient is feeding herself and eating. Original Note: Assess- Patient is alert and oriented x2. She is a bit groggy from pain medication given at 0545. She is appropriate and doing well mobilizing. Patient was incontinent of urine this am and was able to turn to each side well, bed changed and brief put on patient. She has a splinted cast to her r.arm, with a sling in place. Patient cms wnl and ppx2, she is eating her breakfast now and took her medication without any difficulty.
--- NOTE | 2020-10-19 11:49 | PT-IP ANOTE ---
pt on hold for PT. Per doctor's order, pt on bed rest until ortho coonsult.
--- NOTE | 2020-10-19 16:09 | CM.DPC ---
DCP SNF Planning: Per MD, Ortho to consult today due to new fx found to determine recommendations from Ortho team prior to d/c to SNF. SW spoke to Hiram at [facility] and they still accept pt but waiting for Ortho recommendations to determine if she is medically stable to discharge yet but they have availability to accept tomorrow if needed. As of 1599 no Ortho note in yet to determine and therefore too late for [facility] to accept today. Plan: SW to follow closely for Ortho recommendations to determine if pt stable for d/c to [facility] tomorrow 10/20/20. CRISTI Zavala
--- NOTE | 2020-10-19 16:13 | PT-IP ANOTE ---
pt still awaiting ortho consult and will be on bed rest and on hold for PT pending ortho consult.
[2020-10-19] MEDS: DIGOXIN 0.125 MG TABLET PO (18:44)
--- NOTE | 2020-10-19 20:06 | PM.HP.1 ---
History of Present Illness History of Present Illness Date Patient Seen: 10/19/20 Time Patient Seen: 20:06 Date of Onset of Symptoms: 10/15/20 Chief complaint: fall Narrative: This is a 75 year old female who fell and noted the onset of right shoulder and wrist pain. She also notes some right hip pain. She has a history of bilateral total hip arthroplasties. Patient History Medical History Acute pancreatitis CHF (congestive heart failure) Diabetes mellitus type 2 in obese Essential hypertension Myocardial infarction Plaque psoriasis Surgical History History of appendectomy History of bilateral hip replacements History of cholecystectomy History of left knee surgery History of surgery on right wrist Family & Social History Family History Mother Congestive heart failure Brother Congestive heart failure Social History: household members family,children Prior Living Arrangements House Safety & Behavioral: Feels Safe in Current Yes Environment Been Physically Hurt or No Threatened By a Person Suicidal Ideation Description None Suicide Plan Description No Plan Tobacco & Substance use: Smoking Status Never smoker alcohol intake never Substance Use Type does not use Meds Home Medications and Allergies Home Medications Medication Instructions Recorded Confirmed Type aspirin 81 mg tablet 81 mg PO BID 05/25/20 10/18/20 History atorvastatin 40 mg tablet 40 mg PO BEDTIME 05/25/20 10/18/20 History cholecalciferol (vitamin D3) 25 25 mcg PO BID 05/25/20 10/18/20 History mcg (1,000 unit) tablet clopidogrel 75 mg tablet 75 mg PO DAILY 05/25/20 10/18/20 History colestipol 1 gram tablet 1 g PO BID 05/25/20 10/18/20 History digoxin 125 mcg (0.125 mg) tablet 125 mcg PO DAILY 05/25/20 10/18/20 History docusate sodium 100 mg capsule 100 mg PO DAILY 05/25/20 10/18/20 History lisinopril 5 mg tablet 5 mg PO BID 05/25/20 10/18/20 History metformin 500 mg tablet 500 mg PO BID 05/25/20 10/18/20 History metoprolol tartrate 100 mg tablet 50 mg PO BID 05/25/20 10/18/20 History pantoprazole 40 mg tablet,delayed 40 mg PO DAILY #30 tab 05/25/20 10/18/20 Rx release potassium chloride 10 mEq 10 meq PO DAILY 05/25/20 10/18/20 History tablet,extended release sertraline 50 mg tablet 50 mg PO DAILY #30 tab 09/19/20 10/18/20 Rx ondansetron HCl 4 mg tablet 4 mg PO Q6H PRN #14 tab 10/15/20 10/18/20 Rx (Zofran) escitalopram oxalate 10 mg tablet 10 mg PO DAILY 10/18/20 10/18/20 History (Lexapro) nitroglycerin 0.2 mg/hr 1 patch TRANSDERMAL DAILY 10/18/20 10/18/20 History transdermal 24 hour patch Allergies Allergy/AdvReac Type Severity Reaction Status Date / Time dimenhydrinate Allergy Verified 10/15/20 13:44 [From Dramamine] diphenhydramine AdvReac Verified 10/15/20 13:44 [From Benadryl] hydrocodone AdvReac Verified 10/15/20 13:44 Review of Systems Review of Systems Narrative: she notes her left wrist is doing reasonably well, she has a history of a recent left wrist fracture. she also has some baseline dementia Exam Vital Signs (past 8 hours): - 10/19/20 15:25 10/19/20 19:00 10/19/20 20:05 Temperature 97.1 F L 98.5 F Pulse Rate 72 78 Respiratory Rate 16 17 Blood Pressure 141/59 H 165/69 H Pulse Oximetry 97 98 98 Oxygen Delivery Method Room Air Oxygen Flow Rate 0 Narrative Exam Narrative: resting comfortably in bed, heent benign, lungs clear, cor rrr, abd benign, right shoulder moderate pain with rom, right wrist splint in place, right hip mild pain with gentle rom, left wrist deformity but no pain with rom Objective Labs Result Diagrams: 10/19/20 05:30 10/19/20 05:30 Labs: Laboratory Results - last 24 hr 10/19/20 10/19/20 05:30 05:30 WBC 7.3 RBC 2.82 L Hgb 8.3 L Hct 24.6 L MCV 87.1 MCH 29.6 MCHC 34.0 RDW 13.4 Plt Count 271 Sodium 129 L Potassium 4.8 Chloride 101 Carbon Dioxide 21 L BUN 27 H Creatinine 1.43 H Estimated GFR 35.8 L BUN/Creatinine Ratio 18.9 Glucose 153 H Calcium 8.2 L Assessment & Plan Assessment & Plan narrative: Her right hip fracture can be treated conservatively with partial weight bearing on the right lower extremity. It is a periprosthetic fracture but the prosthesis appears stable. Her right shoulder fracture can be treated conservatively with a sling. Her right wrist fracture is slightly displaced and will need a cast which we can arrange as an outpatient next week. Follow up with me next week. Quality VTE Deep Vein Thrombosis/Pulmonary Embolism Present on Admission: No
--- NOTE | 2020-10-19 20:08 | PM.PN.1 ---
Subjective Subjective Date Patient Seen: 10/19/20 Time Patient Seen: 08:00 Interval history: Today she has no complaints aside from right sided hip pain. Exam Vital Signs (past 8 hours): - 10/19/20 15:25 10/19/20 19:00 10/19/20 20:05 Temperature 97.1 F L 98.5 F Pulse Rate 72 78 Respiratory Rate 16 17 Blood Pressure 141/59 H 165/69 H Pulse Oximetry 97 98 98 Oxygen Delivery Method Room Air Oxygen Flow Rate 0 Narrative Exam Narrative: GEN: drowsy and lethargic CV: regular rate and rhythm without murmur PULM: clear to auscultation bilaterally ABD: soft, bowel sounds positive, nontender, no organomegaly. EXT: no ankle edema, R hip pain on palpation The right arm is in a sling. The left wrist moves normally. Objective Labs Result Diagrams: 10/19/20 05:30 10/19/20 05:30 Labs: Laboratory Results - last 24 hr 10/19/20 10/19/20 05:30 05:30 WBC 7.3 RBC 2.82 L Hgb 8.3 L Hct 24.6 L MCV 87.1 MCH 29.6 MCHC 34.0 RDW 13.4 Plt Count 271 Sodium 129 L Potassium 4.8 Chloride 101 Carbon Dioxide 21 L BUN 27 H Creatinine 1.43 H Estimated GFR 35.8 L BUN/Creatinine Ratio 18.9 Glucose 153 H Calcium 8.2 L PFSH Medical History (Updated 10/15/20 @ 20:07 by ELIER Hernandez) Acute pancreatitis CHF (congestive heart failure) Diabetes mellitus type 2 in obese Essential hypertension Myocardial infarction Plaque psoriasis Surgical History History of appendectomy History of bilateral hip replacements History of cholecystectomy History of left knee surgery History of surgery on right wrist Family History Mother Congestive heart failure Brother Congestive heart failure Social History household members: family and children Smoking Status: Never smoker alcohol intake: never Assessment & Plan Assessment & Plan narrative: 75 year old female with a right wrist fracture immediately following a healed left arm fracture. She has a history of NC without stent placement in 2019 along with cognitive impairment and CHF, hypertension, GERD, hyperlipidemia, and diabetes type 2. 1. Right Nondisplaced humeral neck/proximal shaft humerus fracture-pathologic, due to mechanical fall on incline, in the setting of osteopenia, acute, present on admission -in the ED the patient was unable to ambulate at all even with assistance and was unable to go home. It also should be noted that patient just had a cast from a left arm fracture removed 1 week ago. -patient's right arm is in a volar splint and sling -continue bedrest, fall precautions in place -manage patient's pain hydration and comfort -physical therapy, occupational therapy. 2. R periprosthetic fracture in subtrochanteric lateral right femoral cortex -consult orthopedic -bedrest until eval by ortho -pain treatment as above 3. Non insulin-dependent type 2 diabetes, acute on chronic, present on admission -on diabetes protocol, blood sugar checks a.c. HS -A1c 10.3 -stop metformin -continue insulin 4. Cognitive impairment, acute on chronic, present on admission -recommend neuro follow-up for evaluation -CT brain negative on 10/16/20 -patient on fall precautions -patient has been frequently falling with significant fractures and injuries, patient should be considered for placement for safety. 5. Congestive heart failure, EF of 30-40%, chronic, present on admission -continue Plavix, spirolactone, torsemide, potassium, digoxin -dig level 1.1 6. hypertension essential, acute on chronic, present on admission -continue lisinopril, metoprolol 7. hyperlipidemia, chronic, present on admission -continue colestipol, atorvastatin 8. GERD, chronic, present on admission -continue pantoprazole 9. Altered Mental Status, present on admission. Active. -UTI, Anxiety, possible dementia -treat UTI with Ceftriaxone pending UC results -treat Anxiety with family, careful with ativan -No Subdural or Epidural Hematoma or brain bleed on CT brain 10/16/20 9. UTI, present on admission. Active -Ceftriaxone while UC pending -urine culture negative 10. Hyponatremia. -Na slowly dropping -monitor daily. No SSRI or diuretic therapy so this may be early SIADH. 11. CKD likely stage 3 -creatinine slightly improved today to 1.43 from 1.7 -trend daily Quality VTE Deep Vein Thrombosis/Pulmonary Embolism Present on Admission: No
--- NOTE | 2020-10-19 20:13 | PC.NURSE ---
BARBARA Shift note. pt alert and oriented to self. Confused and unable to hold conversation appropriately although will answer appropriately regarding pain location. pt unable to place number on pain but when asked if pain is a lot, medium or small pt responded with medium. BP HTN but consistent. CBG at 1630 118 (no coverage). Sling to right upper extremity, no red juarez or indents. MOIRA to right wrist, fingers and hand swollen, pt able to wiggle fingers and <3 cap refill, and positive sensation. L AC PIV infusing NS @ 40ml/hr. 2mg PO Dilaudid administered at 1844 by nurse Herman for pain. Dr. Burris saw pt around 1940 for ortho consult (states pt will probably need cast to wrist and that can occur outpatient).
[2020-10-19] MEDS: ATORVASTATIN 20 MG TABLET 40 MG PO (20:59)
[2020-10-19] MEDS: SENNOSIDES 8.6 MG TABLET 17.2 MG PO (20:59)
[2020-10-19] MEDS: INSULIN GLARGINE 100 UNIT/ML 3ML PEN 20 UNIT SUBCUT (21:03)
[2020-10-20] MEDS: HYDROMORPHONE 2 MG TABLET PO ×4 (00:57→12:48)
--- NOTE | 2020-10-20 03:31 | PC.NURSE ---
Patient is alert and oriented except did not know day of month. Responses are slow. Initially patient tearful as had lost call light but quickly reassured. Breath sounds CTA with RA sat of 94%. HRR but bradycardic at 56 bpm. BP trending high and is currently 146/55. Denied nausea. BT present but has not had a BM since prior to admission on 10/15. Denied dysuria, frequency or urgency; using bedpan to void and is sometimes incontinent. Is able to assist with repositioning and can lift buttocks off bed for bedpan placement but assisted to place pillows when turning onto side. Right UE is in splint wrapped with guanako and in sling; fingers are puffy. CMS is intact except for tingling in right thumb. Complains of 7/10 pain in right UE, right hip and back and was medicated with po Dilaudid earlier with pain decreasing to 4/10. Bilateral calf SCD's applied. Fall risk score is high and bed alarm is activated.
[2020-10-20 03:45] VITALS: BP 147/60; PULSE 66; RESP 17; TEMP 36.5; O2SAT 96
[2020-10-20 04:50] LABS: Blood Urea Nitrogen 22 mg/dL (7-17); Calcium 8.4 mg/dL (8.4-10.2); Carbon Dioxide 23 mmol/L (22-32); Chloride 103 mmol/L (98-107); Estimated Glomerular Filt Rate 34.7 mL/min (>60); Glucose 148 mg/dL (80-110); HEMOLYSIS < 15 (0-50); Potassium 4.5 mmol/L (3.4-5.1); Sodium 132 mmol/L (137-145)
[2020-10-20] MEDS: PANTOPRAZOLE DR 40 MG TABLET PO (06:31)
[2020-10-20 07:30] VITALS: O2SAT 97
[2020-10-20 08:03] VITALS: BP 157/56; PULSE 72; RESP 14; TEMP 36.6; O2SAT 97
--- NOTE | 2020-10-20 08:41 | PM.PNPO.1 ---
Subjective Subjective Date Patient Seen: 10/20/20 Time Patient Seen: 08:41 Interval history: Patient reports that she is in pain and rest. When asked she rates her pain a 10/10 in intensity, and she cannot specify where her pain is located. She denies fever, chills, nausea, chest pain, or shortness of breath. Patient experienced a mechanical fall on 10/15/2020 and has experienced pain in her right wrist, hip, and shoulder. Exam Vital Signs (past 8 hours): - 10/20/20 03:45 Temperature 97.7 F Pulse Rate 66 Respiratory Rate 17 Blood Pressure 147/60 H Pulse Oximetry 96 Oxygen Delivery Method Room Air Oxygen Flow Rate 0 Narrative Exam Narrative: 75-year-old female admitted following a mechanical fall on 10/15/2020. Patient is resting in bed, is in no acute distress, is alert and oriented x3. Patient is tearful on exam when being asked questions. Right wrist is wrapped in Bao bandage and right shoulder is placed in sling. Tenderness to palpation appreciated along the proximal right humerus. Pain and tenderness appreciated with gentle range of motion of the right hip when rocking internally and externally. DP pulses palpated bilaterally. Gross motor function intact. Calves are soft and nontender, negative Homans sign. Good capillary refill. No signs of DVT appreciated. Const General: cooperative, healthy appearing and comfortable Resp Effort & Inspection: normal respiratory effort and able to speak in complete sentences Skin General: no rashes or lesions noted Objective Labs Result Diagrams: 10/19/20 05:30 10/20/20 04:05 Labs: Laboratory Results - last 24 hr 10/20/20 04:05 Sodium 132 L Potassium 4.5 Chloride 103 Carbon Dioxide 23 BUN 22 H Creatinine 1.47 H Estimated GFR 34.7 L BUN/Creatinine Ratio 15.0 Glucose 148 H Calcium 8.4 PFSH Medical History Acute pancreatitis CHF (congestive heart failure) Diabetes mellitus type 2 in obese Essential hypertension Myocardial infarction Plaque psoriasis Surgical History History of appendectomy History of bilateral hip replacements History of cholecystectomy History of left knee surgery History of surgery on right wrist Family History Mother Congestive heart failure Brother Congestive heart failure Social History household members: family and children Smoking Status: Never smoker alcohol intake: never Assessment & Plan Post-op Postoperative Postoperative plan narrative: Conservative treatment planned for patient's right hip fracture and right shoulder fracture. Partial weight-bearing on the right lower extremity. Patient has right shoulder fracture will be treated conservatively with a sling. Cast will be placed over the patient's right wrist. Plan for follow-up with Dr. Montero in clinic sometime next week. Quality VTE Deep Vein Thrombosis/Pulmonary Embolism Present on Admission: No
[2020-10-20] MEDS: ACETAMINOPHEN 325 MG TABLET 650 MG PO (09:03)
[2020-10-20] MEDS: ASPIRIN EC 81 MG TABLET PO (09:04)
[2020-10-20] MEDS: CLOPIDOGREL 75 MG TABLET PO (09:04)
[2020-10-20] MEDS: ENOXAPARIN 40 MG/0.4 ML SYRINGE SUBCUT (09:04)
[2020-10-20] MEDS: METOPROLOL IR 50 MG TABLET 100 MG PO (09:04)
[2020-10-20] MEDS: lisinopriL 5 MG TABLET PO (09:05)
[2020-10-20] MEDS: SERTRALINE 50 MG TABLET PO (09:05)
[2020-10-20] MEDS: DOCUSATE 100 MG CAPSULE PO (09:05)
[2020-10-20] MEDS: TORSEMIDE 10 MG TABLET 20 MG PO (09:11)
[2020-10-20] MEDS: INSULIN LISPRO 100 UNIT/ML 3ML VIAL SUBCUT ×2 (09:11→12:45)
--- NOTE | 2020-10-20 09:34 | PM.PN.1 ---
Subjective Subjective Date Patient Seen: 10/20/20 Time Patient Seen: 09:00 Interval history: Patient is resting comfortably in bed in no distress and only begins to complain of pain with examination in which she is complaining of a mild 6/10 pain to her right arm and right hip this morning. Exam Vital Signs (past 8 hours): - 10/20/20 03:45 Temperature 97.7 F Pulse Rate 66 Respiratory Rate 17 Blood Pressure 147/60 H Pulse Oximetry 96 Oxygen Delivery Method Room Air Oxygen Flow Rate 0 Narrative Exam Narrative: GEN: Alert, calm, and relaxed, in no distress. CV: regular rate and rhythm without murmur PULM: clear to auscultation bilaterally ABD: soft, bowel sounds positive, nontender, no organomegaly. EXT: no ankle edema, R hip pain on palpation, mild increased right hand edema. The right arm is in a sling. The left wrist moves normally. Objective Labs Result Diagrams: 10/19/20 05:30 10/20/20 04:05 Labs: Laboratory Results - last 24 hr 10/20/20 04:05 Sodium 132 L Potassium 4.5 Chloride 103 Carbon Dioxide 23 BUN 22 H Creatinine 1.47 H Estimated GFR 34.7 L BUN/Creatinine Ratio 15.0 Glucose 148 H Calcium 8.4 PFSH Medical History Acute pancreatitis CHF (congestive heart failure) Diabetes mellitus type 2 in obese Essential hypertension Myocardial infarction Plaque psoriasis Surgical History History of appendectomy History of bilateral hip replacements History of cholecystectomy History of left knee surgery History of surgery on right wrist Family History Mother Congestive heart failure Brother Congestive heart failure Social History household members: family and children Smoking Status: Never smoker alcohol intake: never Assessment & Plan Assessment & Plan narrative: 75 year old female with a right wrist fracture immediately following a healed left arm fracture. She has a history of VT without stent placement in 2019 along with cognitive impairment and CHF, hypertension, GERD, hyperlipidemia, and diabetes type 2. 1. Right Nondisplaced humeral neck/proximal shaft humerus fracture-pathologic, due to mechanical fall on incline, in the setting of osteopenia, acute, present on admission -in the ED the patient was unable to ambulate at all even with assistance and was unable to go home. It also should be noted that patient just had a cast from a left arm fracture removed 1 week ago. -patient's right arm is in a volar splint and sling -continue bedrest, fall precautions in place -manage patient's pain hydration and comfort -physical therapy, occupational therapy. 2. R periprosthetic fracture in subtrochanteric lateral right femoral cortex -consult orthopedic -bedrest until eval by ortho -pain treatment as above 3. Non insulin-dependent type 2 diabetes, acute on chronic, present on admission -on diabetes protocol, blood sugar checks a.c. HS -A1c 10.3 -stop metformin -continue insulin 4. Cognitive impairment, acute on chronic, present on admission -recommend neuro follow-up for evaluation -CT brain negative on 10/16/20 -patient on fall precautions -patient has been frequently falling with significant fractures and injuries, patient should be considered for placement for safety. 5. Congestive heart failure, EF of 30-40%, chronic, present on admission -continue Plavix, spirolactone, torsemide, potassium, digoxin -dig level 1.1 6. hypertension essential, acute on chronic, present on admission -continue lisinopril, metoprolol 7. hyperlipidemia, chronic, present on admission -continue colestipol, atorvastatin 8. GERD, chronic, present on admission -continue pantoprazole 9. Altered Mental Status, present on admission. Active. -UTI, Anxiety, possible dementia -treat UTI with Ceftriaxone pending UC results -treat Anxiety with family, careful with ativan -No Subdural or Epidural Hematoma or brain bleed on CT brain 10/16/20 9. UTI, present on admission. Active -Ceftriaxone while UC pending -urine culture negative 10. Hyponatremia. -Na slowly dropping -monitor daily. No SSRI or diuretic therapy so this may be early SIADH. 11. CKD likely stage 3 -creatinine slightly improved today to 1.43 from 1.7 -trend daily -patient to be evaluated for discharge by Orthopedics today. Quality VTE Deep Vein Thrombosis/Pulmonary Embolism Present on Admission: No
--- NOTE | 2020-10-20 10:50 | PT.IPTN ---
Current Diagnoses Type 2 diabetes mellitus with other specified complication (10/15/20) Hyperlipidemia, unspecified (10/15/20) Other symptoms and signs involving cognitive functions and awareness (10/15/20) Physical Therapy Treatment Note M2 PT-IP Current Condition Start: 10/16/20 08:43 Freq: Status: Active Protocol: Document 10/18/20 11:25 AB (Rec: 10/18/20 13:43 AB [email or web address]) Physical Therapy Current Condition Current Condition Evaluation Date 10/18/20 Treatment Diagnosis R humeral/ular fx; difficulty in walking Precautions Shoulder Precautions Sling Brace R volar splint with sling on Weight Bearing Status Weight Bearing Status Non-Weight Bearing Allowed Weight Bearing Amount (enter % RUE NWB or #) (%) M3 PT-IP Subjective Start: 10/16/20 08:43 Freq: Status: Active Protocol: Document 10/20/20 10:50 AB (Rec: 10/20/20 12:56 AB [email or web address]) Subjective Physical Therapy Visit Type Type Treatment Note Visit Start Time 10:50 Visit Stop Time 11:25 Total Visit Minutes 35 Notes Pt completed ortho consult. Per ortho doctor's order: PWB on RLE. clarified by LEBRON Durham that pt is 50% PWB per Dr. Montero. Number of ARMOR OFFICER Visits 0 Physical Therapy Visit Comments Patient Comments pt agreeable to do PT Therapy Pain Assessment Pain When Pain Assessed At Rest Pain Present Pain Present Pain Reported Location right arm/hip Scale Used pain scale not stated Pain Behaviors Guarding Pain Management Techniques Distraction,Re-positioning, Timing of Activity with Medications M4 PT-IP Mobility and Gait Start: 10/16/20 08:43 Freq: Status: Active Protocol: Document 10/20/20 10:50 AB (Rec: 10/20/20 12:56 AB [email or web address]) PT-Bed Mobility Assessment Supine to Sit Supine to Sit Maximum Assistance,1 Person Assistance,Head of Bed Elevated PT-Transfer Assessment Sit to and From Stand Sit to and from Stand Maximum Assistance,2 Person Assistance,Use of Upper Extremities Equipment Transfer Assistive Device Gait Belt,Front Wheeled Walker Orthotic/Prosthetic Devices or Brace: Yes Transfers Transfer Destination Chair Transfer Technique slide board Transfer Ability Level of Assist Maximum Assistance,1 Person Assistance,Use of Upper Extremities Comments Mobility Comments pt agreeable to do PT. Pt seems less confuse today than when PT saw pt for eval. pt completed supine to sit with HOB elevated max A and max cues. max A for scooting to EOB. pt tolerating sitting on EOB CGA. educated pt on weight bearing precaution on RLE. completed sit to stand x 2 attempts max A x 2 and max cues. required max A to maintain 50% PWB on RLE. max A 2 to maintain standing FWW with PT stabilizing R side of FWW as pt is NWB on RUE and 50 % PWB on RLE. pt sat back on EOB. agreed to transfer to chair. completed slide board transfer: max A x 2 for set up but only max A for scoot slide board transfer with max cues. max A x 2 for positioning on chair. call light and table placed within reach. Gait Assessment Comments Gait Comments unable at this time PT-Balance Assessment Sitting Balance and Reactions Static Sitting Balance Ability Fair Dynamic Sitting Balance Ability Fair Standing Balance and Reactions Static Standing Balance Ability Poor Dynamic Standing Balance Ability Poor Device Used FWW M5 PT-IP Objective Assessments Start: 10/16/20 08:43 Freq: Status: Active Protocol: Document 10/18/20 11:25 AB (Rec: 10/18/20 13:43 [email or web address] Orientation Orientation/Cognition Level of Alertness Confusional State Orientation Name Safety Awareness Decreased Safety Awareness Memory Description Short 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,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 Gross Range of Motion Lower Extremity ROM Assessment Right Impaired Impairments c/o pain with RLE movement Strength Comments Strength Comments unable to follow instructions for MMT M6 PT-IP Treatment Start: 10/16/20 08:43 Freq: Status: Active Protocol: Document 10/20/20 10:50 AB (Rec: 10/20/20 12:56 AB [email or web address]) Physical Therapy Treatment Education Education Provided Weight Bearing Status,Safety M7 PT-IP Assessment and Plan Start: 10/16/20 08:43 Freq: Status: Active Protocol: Document 10/20/20 10:50 AB (Rec: 10/20/20 12:56 AB [email or web address]) PT Summary Assessment and Plan Potential Rehabilitation Potential Fair Status of Condition at Evaluation Evolving Summary Impairments Pain,ROM,Strength,Balance, Coordination,Sensation,Tone, Cognition,Bed Mobility, Transfers,Gait,Activity Tolerance Progress Towards Goals Slow Progress due to Pain,Slow Progress due to Medical Issues,Slow Progress due to Activity Tolerance Assessment Summary pt requiring max A x 2 for slide board transfer and max cues for all tasks. pt is NWB on RUE and 50% PWB on RLE affecting mobility level. pt will require SNF rehab to improve strength and mobility. Goals Bed Mobility Goal Minimal Assistance Transfer Goal Minimal Assistance,Slide Board Days to Meet Goals 10 Frequency of Treatment Frequency Of Treatment Once a Day Treatment Plan Physical Therapy Treatment Plan Bed Mobility Training,Transfer Training,Gait Training, Therapeutic Exercise,Balance Retraining,Post Op Education, Discharge Planning,Hot or Cold Pack,Neuromuscular Re-ed, Coordination Retraining,Manual Therapy Precautions Shoulder Precautions Sling Other Precautions NWB RUE; 50% PWB RLE Recommendations To Nursing Amount of Assist Needed Mechanical Lift Discharge Recommendations PT Discharge Recommendations SNF Rehab Transportation Needs at Discharge Wheelchair/Cabulance
[2020-10-20] MEDS: COLESTIPOL 1 GM TABLET PO (10:59)
--- NOTE | 2020-10-20 11:00 | CM.DPNOTE ---
Faxed covid vaccination card to [facility] and fax confirm. received. Yudi Gomez CM Asst.
--- NOTE | 2020-10-20 11:01 | P.DS_ITS ---
History of Present Illness History of Present Illness Date Patient Seen: 10/20/20 Time Patient Seen: 07:30 Chief complaint: fall Narrative: Patient is a 70-year-old woman Frances Foley who is brought in for a mechanical fall today. [place] when she lost her balance she ended up landing on her right wrist and hip is complaining of right wrist elbow shoulder hip and leg pain. She did not hit her head and did not lose consciousness. There was no presyncopal events described. She had a similar event in August with a left wrist fracture that was just taken out of the cast last week. After that episode she came in 3 days later in acute renal failure presumably because of dehydration and pain issues. She was admitted to an outside hospital and then transferred to rehab unit for brief period of time. Recently followed up with her infusion therapy nurse and renal function is back to its baseline with a creatinine in the 1.5 range. Patient has a history of CHF, hypertension, GERD, hyperlipidemia, diabetes type 2, and [place] without stent placement in 2019. Patients vitals upon admit were stable with a B/P 154/72. Patient was resting in bed in no discomfort but any attempt to examine or even speak with the pa tient she becomes agitated. She is confused will respond to physical pressure but will not open her eyes, patient is unable to provide HPI or ROS unsure if this is related to medication from the ED or patient's baseline. Patient's labs demonstrated HGB of 10.4, HCT of 31.2, her chemistries appear to be at or around her baseline with a sodium of 133, BUN 18, HC03 of 21, creatinine 1.48, GFR of 34.4. Patient's blood sugar was elevated at 309. And alk phos of 180. Patient's right wrist x-ray demonstrated a nondisplaced humeral neck/proximal shaft humerus fracture. Patient admitted for right wrist fracture, cognitive impairment. Discharge Providers Provider Date of admission: 10/15/20 19:01 Discharge Date: 10/20/20 Primary care physician: Oliver Ibrahim MD Consults: 10/15/20 19:27 Consult to Occupational Therapy Evaluate & Treat Comment: fall rt wrist/ulnar fx Physician Instructions: Evaluate and treat Consult to Physical Therapy Evaluate & Treat Comment: fall rt wrist/ulnar fx Physician Instructions: Evaluate and Treat 10/18/20 19:17 Consult to Orthopedic Surgery Routine Comment: Consulting Provider: Ghazala Montero Reason for consultation: R hip fracture Discharge provider: ELIER Hernandez Summary Hospital Course Discharge Diagnosis: 1. Right nondisplaced humeral neck/proximal shaft humerus fracture 2. Right Periprosthetic fracture in the subtrochanteric lateral right femoral cortex 3. Opf-[id number]-[id number] type 2 diabetes 4. Cognitive impairment 5. CHF 6. Essential hypertension 7. Hyperlipidemia 8. GERD 9. UTI-resolved 10. Hyponatremia-improved 11. CKD Hospital Course: Patient was initially admitted for a right nondisplaced humeral neck in the setting of recent healed proximal shaft humerus fracture left arm healed with cognitive impairment. Patient had had repeated injuries and fractures that required hospitalization most likely due to progressive cognitive impairment. Patient was significantly confused on admit. On day 1 patient demonstrated a UTI with hyponatremia and was placed on Rocephin and IV fluids for gentle correction and patient also found to have an A1c of 10.3 uncontrolled diabetes, metformin stopped and patient placed on insulin control. Patient's right arm had been splinted and placed in sling- Dr. Montero orthopedics consulted. On day 4 patient began to complain of right hip pain and was found to have a hairline right periprosthetic fracture in subtrochanteric lateral right femoral cortex. Requiring conservative treatment. Orthopedics signed off on patient today for discharge reporting 50% weight-bearing going forward. Status at Discharge Cognitive/behavioral status at discharge: confused Functional status at discharge: uses cane/walker (50% weight-bearing with assist) Overall status at discharge: patient is progressing back to baseline Time Spent with Patient Time spent: Less than 30 minutes Exam Vital Signs (past 8 hours): - 10/20/20 03:45 10/20/20 08:03 Temperature 97.7 F 97.9 F Pulse Rate 66 72 Respiratory Rate 17 14 Blood Pressure 147/60 H 157/56 H Pulse Oximetry 96 97 Oxygen Delivery Method Room Air Oxygen Flow Rate 0 Narrative Exam Narrative: GEN: Alert, calm, and relaxed, in no distress. CV: regular rate and rhythm without murmur PULM: clear to auscultation bilaterally ABD: soft, bowel sounds positive, nontender, no organomegaly. EXT: no ankle edema, R hip pain on palpation, mild increased right hand edema. The right arm is in a sling. The left wrist moves normally. Objective Labs Result Diagrams: 10/19/20 05:30 10/20/20 04:05 Labs: Laboratory Results - last 24 hr 10/20/20 04:05 Sodium 132 L Potassium 4.5 Chloride 103 Carbon Dioxide 23 BUN 22 H Creatinine 1.47 H Estimated GFR 34.7 L BUN/Creatinine Ratio 15.0 Glucose 148 H Calcium 8.4 PFSH Medical History Acute pancreatitis CHF (congestive heart failure) Diabetes mellitus type 2 in obese Essential hypertension Myocardial infarction Plaque psoriasis Surgical History History of appendectomy History of bilateral hip replacements History of cholecystectomy History of left knee surgery History of surgery on right wrist Family History Mother Congestive heart failure Brother Congestive heart failure Social History household members: family and children Smoking Status: Never smoker alcohol intake: never Discharge Assessment & Plan Assessment and Plan Assessment: 1. Right Nondisplaced humeral neck/proximal shaft humerus fracture-pathologic, due to mechanical fall on incline, in the setting of osteopenia, acute, present on admission -in the ED the patient was unable to ambulate at all even with assistance and was unable to go home. It also should be noted that patient just had a cast from a left arm fracture removed 1 week ago. -patient's right arm is in a volar splint and sling -continue bedrest, fall precautions in place -manage patient's pain hydration and comfort -physical therapy, occupational therapy. 2. R periprosthetic fracture in subtrochanteric lateral right femoral cortex -consult orthopedic -bedrest until eval by ortho -pain treatment as above 3. Non insulin-dependent type 2 diabetes, acute on chronic, present on admission -on diabetes protocol, blood sugar checks a.c. HS -A1c 10.3 -stop metformin -continue insulin 4. Cognitive impairment, acute on chronic, present on admission -recommend neuro follow-up for evaluation -CT brain negative on 10/16/20 -patient on fall precautions -patient has been frequently falling with significant fractures and injuries, patient should be considered for placement for safety. 5. Congestive heart failure, EF of 30-40%, chronic, present on admission -continue Plavix, spirolactone, torsemide, potassium, digoxin -dig level 1.1 6. hypertension essential, acute on chronic, present on admission -continue lisinopril, metoprolol 7. hyperlipidemia, chronic, present on admission -continue colestipol, atorvastatin 8. GERD, chronic, present on admission -continue pantoprazole 9. Altered Mental Status, present on admission. Active. -UTI, Anxiety, possible dementia -treat UTI with Ceftriaxone pending UC results -treat Anxiety with family, careful with ativan -No Subdural or Epidural Hematoma or brain bleed on CT brain 10/16/20 9. UTI, present on admission. Active -Ceftriaxone while UC pending -urine culture negative 10. Hyponatremia. -Na slowly dropping -monitor daily. No SSRI or diuretic therapy so this may be early SIADH. 11. CKD likely stage 3 -creatinine slightly improved today to 1.43 from 1.7 -trend daily -patient to be evaluated for discharge by Orthopedics today. Discharge Plan Discharge Plan Patient Disposition: SNF Transfer to: [facility] Provider Discharge Comment: Patient is being discharged to [facility] for rehabilitation care for continued rehabilitation care for right arm displaced femoral neck/proximal shaft humerus fracture with healed a left arm fracture and right periprosthetic fracture in subtrochanteric lateral right femoral cortex in the setting of cognitive impairment, an IDDM type 2, CHF, hypertension, CKD, Gerd, UTI on admit -resolved with hyponatremia, sodium, today 132 As patient has an unstable gait and frequent falls with ambulation that has led to multiple fractures including the left arm/right arm/right hip in the setting of cognitive impairment. Patient to continue with 50% weight-bearing with assist, physical therapy rehabilitation, recommend neurological evaluation of cognitive impa irment. Discharge orders & Medications Prescriptions: Continued sertraline 50 mg tablet 50 mg PO DAILY Qty: 30 RF: 0 clopidogrel 75 mg Tablet 75 mg PO DAILY RF: 0 docusate sodium 100 mg Capsule 100 mg PO DAILY RF: 0 digoxin 125 mcg (0.125 mg) Tablet 125 mcg PO DAILY RF: 0 potassium chloride 10 mEq Tablet Extended Release 10 meq PO DAILY RF: 0 cholecalciferol (vitamin D3) 25 mcg (1,000 unit) Tablet 25 mcg PO BID RF: 0 atorvastatin 40 mg Tablet 40 mg PO BEDTIME RF: 0 lisinopril 5 mg Tablet 5 mg PO BID RF: 0 metoprolol tartrate 100 mg Tablet 50 mg PO BID RF: 0 colestipol 1 gram Tablet 1 g PO BID RF: 0 pantoprazole 40 mg tablet,delayed release (DR/EC) 40 mg PO DAILY Qty: 30 RF: 0 escitalopram oxalate [Lexapro] 10 mg Tablet 10 mg PO DAILY RF: 0 Discontinued aspirin 81 mg Tablet 81 mg PO BID RF: 0 metformin 500 mg Tablet 500 mg PO BID RF: 0 nitroglycerin 0.2 mg/hr Patch 24 Hour 1 patch TRANSDERMAL DAILY RF: 0 Medication counseling provided by Pharmacist: No Pharmacist Comment: Patient is discharging to SNF Follow up/Referrals: Oliver Ibrahim MD [Primary Care Provider] - Ghazala Montero MD [Physician] - Discharge Health Status Care Plan Goals: Per orthopedics: Conservative treatment planned for patient's right hip fracture and right shoulder fracture. 50% weight-bearing on the right lower extremity. Patient has right shoulder fracture will be treated conservatively with a sling. Cast will be placed over the patient's right wrist per Montero Orders. Plan for follow-up with Dr. Montero in clinic sometime next week. Patient will need physical therapy follow-up. Recommend neurology consult and evaluation regarding cognitive impairment. Diet/Activity/Treatments Diet: Carb-consistent/Diabetic Activity: Conservative treatment planned for patient's right hip fracture and right shoulder fracture. 50% weight-bearing on the right lower extremity. Physical therapy evaluation & treatment. [facility] Reason for rehabilitation: Recovery r/t decondition Rehab type: Physical therapy and Occupational therapy Visit Report/Discharge Packet Instructions: DI for Wrist Fracture, Humeral Shaft Fracture Discharge Data Primary Care Provider: Oliver Ibrahim Quality VTE Deep Vein Thrombosis/Pulmonary Embolism Present on Admission: No
--- NOTE | 2020-10-20 11:19 | CM.DPNOTE ---
Called [facility], Cinda, for 1:30-1:45 transport to . Also called Uli at Ambulance to cancel their transport for 2:30 pm. Yudi Gomez CM Asst.
--- NOTE | 2020-10-20 12:13 | CM.DPNOTE ---
Addendum entered by Yudi Gomez 10/20/20 15:05: Faxed Covid result to . Yudi Gomez CM Asst. Original Note: Fax signed med list, order and PASRR to and received confirm. Also [facility] said to have rapid covid test on pt, but if results are not in by time pt. is being transported, don't worry about it. Yudi Gomez CM Asst.
--- NOTE | 2020-10-20 12:35 | OT.IPNOTE ---
Pt being discharge to SNF today and not wanting to do OT eval at this time. Able to answer questions from pt regarding rehab process and for OT needs. OT SNF to address OT needs. NO charge.
[2020-10-20 12:44] VITALS: BP 114/51; PULSE 66; RESP 14; TEMP 36.7; O2SAT 97
--- NOTE | 2020-10-20 14:02 | CM.DPNOTE ---
DC Note DC to [facility] today, signed med list and DC ppk/PASRR faxed to [facility]. Copy of COVID-19 vaccination card taken and faxed to [facility] COVID-19 test updated today Patient and RN Katelynn made aware, patient agreeable to plan. KENYETTA Pace will call report to KENYETTA Chen at [facility]. Patient cannot tolerate cabulance w/ shoulder and hip fx; so BLS scheduled for p/u at [id number], crew came early 1330. Plan: DC to [facility] via BLS today JW
--- NOTE | 2020-10-20 14:41 | PC.NURSE ---
Transfer: Pt transfered to snf for rehab. J Luis admitting nurse given report. There was a question about her ssc which had not clarified. She has been on high dose here. A copy of the order was faxed to J Luis at facility. Reviewed hospital course. Pt having hallucinations when she arrived, doing better now. Is mostly oriented, mixed up on time and day. Knew she had been hallucinating but not sure exactly what they were. Can't recall how she got to the hospital. Mentally much improved. Reviewed pt adl's and mobility, she is non weight near to the rt upper arm, and partial weight bear to the rt lower ext. Arm is in a splint and she will need to follow up with ortho. Family is supportive. Covid test is still pending. Questions answered. Knows he can call if further info is needed. Pt transported to facility via [facility] transfer.
[2020-10-20 15:00] LABS: COVID19 - ADMIT (NP swab/PCR) Negative (Negative)
== END 2020-10-20 14:00 | DRG 543 ==
LOC: ED 15:12 → AC 10-16 08:55
PROVIDERS: Family Medicine; Internal Medicine; Admitting Provider Nurse Practitioner Family; Emergency Provider Emergency Medicine; PCP Student in an Organized Health Care Education/Training Program; Referring Provider Emergency Medicine; Visit Provider Nurse Practitioner Family
DX: M84.433A Pathological fracture, right radius, initial encounter for fracture (principal); N39.0 Urinary tract infection, site not specified; I50.22 Chronic systolic (congestive) heart failure; R44.3 Hallucinations, unspecified; E87.1 Hypo-osmolality and hyponatremia; M97.01XA Periprosthetic fracture around internal prosthetic right hip joint, initial encounter; M84.451A Pathological fracture, right femur, initial encounter for fracture; N18.30 Chronic kidney disease, stage 3 unspecified; M84.421A Pathological fracture, right humerus, initial encounter for fracture; M85.80 Other specified disorders of bone density and structure, unspecified site; E11.9 Type 2 diabetes mellitus without complications; K21.9 Gastro-esophageal reflux disease without esophagitis; G31.84 Mild cognitive impairment of uncertain or unknown etiology; E78.5 Hyperlipidemia, unspecified; Z20.822 Contact with and (suspected) exposure to COVID-19; Z79.84 Long term (current) use of oral hypoglycemic drugs
CPT/HCPCS: 29125; 36415; 70450; 72192; 73030; 73070; 73080; 73100; 73502; 73562; 80048; 80053; 80162; 81001; 82962; 83036; 83735; 83880; 85025; 85027; 87086; 87635; 93005; 94760; 97162; 97530; 99284; C9803; J0696; J1170; J1650; J1815; J2060

== ENCOUNTER → 2020-10-27 16:11 | Outpatient (CLI) | payer MEDICARE, OTHER, SELFPAY ==
[2020-10-15 21:40] VITALS: BMI 24.7
--- NOTE | 2020-10-27 | DI.RAD.S_ITS ---
PROCEDURE: XR HIP W PEL IF DONE RT 2V INDICATIONS: [id number] TECHNIQUE: 4 view(s) of the hip acquired. COMPARISON: [facility], [place], XR HIP W PEL IF DONE RT 2V, 10/15/2020, 10:19. FINDINGS: Bones: Patient is status post bilateral hip arthroplasty, with hardware components in expected positions. The hip joint appears congruent. Again noted is subtle periprosthetic fracture involving proximal right femoral shaft. No new fracture or dislocation. No gross hardware loosening or failure. Soft tissues: Overlying postoperative changes are noted. No suspicious soft tissue densities. IMPRESSION: Subtle right periprosthetic femoral shaft fracture not significantly changed from prior study. Anatomic right hip alignment. No new fracture or dislocation. Dictated by: Devyn Perez M.D. on 10/28/2020 at 10:05 Approved by: Devyn Perez M.D. on 10/28/2020 at 10:07
== END ==
PROVIDERS: Referring Provider Orthopaedic Surgery; Visit Provider Orthopaedic Surgery
DX: Z96.643 Presence of artificial hip joint, bilateral; T84.010A Broken internal right hip prosthesis, initial encounter
CPT/HCPCS: 73502

== ENCOUNTER → 2020-10-30 10:56 | Outpatient (ROUT) | payer MEDICARE, OTHER, SELFPAY ==
[2020-10-15 21:40] VITALS: BMI 24.7
[2020-10-30 11:11] LABS: Add Manual Diff / Slide Review NO; Basophils Absolute Auto 100 /uL (0-100); Basophils Percent Auto 0.9 % (0-2); Eosinophils Absolute Auto 200 /uL (0-450); Eosinophils Percent Auto 2.9 % (2-4); Hematocrit 27.7 % (36-46); Hemoglobin 9.1 g/dL (12.0-16.0); Lymphocytes Absolute Auto 1000 /uL (1100-4500); Lymphocytes Percent Auto 14.6 % (25-40); Mean Corpuscular Hemoglobin 28.6 PG (26-34); Mean Corpuscular Volume 86.6 fL (80-100); Monocytes Absolute Auto 400 /uL (0-900); Monocytes Percent Auto 6.7 % (3-14); Neutrophils Absolute Auto 5000 /uL (1500-7000); Neutrophils Percent Auto 74.9 % (50-75); Platelet Count 423 X10^3/uL (150-400); Red Cell Distribution Width 13.9 % (11.6-14.8); White Blood Cell Count 6.7 X10^3/uL (4.5-11.0)
[2020-10-30 11:19] LABS: Digoxin 1.9 ng/mL (0.8-2.0)
[2020-10-30 12:15] LABS: BUN Creatinine Ratio 18.3 (6-22); Blood Urea Nitrogen 23 mg/dL (7-17); Carbon Dioxide 20 mmol/L (22-32); Chloride 106 mmol/L (98-107); Estimated Glomerular Filt Rate 41.4 mL/min (>60); Glucose 114 mg/dL (80-110); HEMOLYSIS < 15 (0-50); Sodium 135 mmol/L (137-145)
[2020-10-30 12:16] LABS: Potassium 5.4 mmol/L (3.4-5.1)
== END ==
PROVIDERS: Visit Provider Nurse Practitioner
DX: N18.9 Chronic kidney disease, unspecified (principal); D64.9 Anemia, unspecified; Z01.818 Encounter for other preprocedural examination
CPT/HCPCS: 80048; 80162; 85025

== ENCOUNTER → 2020-11-15 14:33 | Outpatient (CLI) | payer MEDICARE, OTHER, SELFPAY ==
[2020-10-15 21:40] VITALS: BMI 24.7
[2020-10-28 13:58] VITALS: BMI 25.0
== END ==
LOC: OR 10-31 12:46 → RESP 14:34
PROVIDERS: PCP Student in an Organized Health Care Education/Training Program; Referring Provider Orthopaedic Surgery; Visit Provider Orthopaedic Surgery
DX: S52.571A Other intraarticular fracture of lower end of right radius, initial encounter for closed fracture (principal); Z01.818 Encounter for other preprocedural examination
CPT/HCPCS: 93005; 93010

== ENCOUNTER → 2021-02-04 11:07 | Outpatient (CLI) | payer MEDICARE, OTHER, SELFPAY ==
[2020-10-15 21:40] VITALS: BMI 24.7
[2021-02-04 11:52] LABS: Add Manual Diff / Slide Review NO; Basophils Absolute Auto 100 /uL (0-100); Basophils Percent Auto 0.7 % (0-2); Eosinophils Absolute Auto 100 /uL (0-450); Eosinophils Percent Auto 1.4 % (2-4); Hematocrit 34.8 % (36-46); Hemoglobin 11.4 g/dL (12.0-16.0); Lymphocytes Absolute Auto 1000 /uL (1100-4500); Mean Corpuscular HGB Conc 32.9 % (30-36); Mean Corpuscular Hemoglobin 25.6 PG (26-34); Mean Corpuscular Volume 77.8 fL (80-100); Monocytes Absolute Auto 500 /uL (0-900); Monocytes Percent Auto 6.6 % (3-14); Neutrophils Absolute Auto 6400 /uL (1500-7000); Neutrophils Percent Auto 79.3 % (50-75); Platelet Count 313 X10^3/uL (150-400); Red Blood Cell Count 4.47 X10^6/uL (4.0-5.2); Red Cell Distribution Width 14.4 % (11.6-14.8); White Blood Cell Count 8.1 X10^3/uL (4.5-11.0)
[2021-02-04 12:06] LABS: HEMOLYSIS < 15 (0-50); Iron 39 ug/dL (37-170)
[2021-02-04 12:08] LABS: BUN Creatinine Ratio 9.3 (6-22); Blood Urea Nitrogen 16 mg/dL (7-17); Calcium 9.2 mg/dL (8.4-10.2); Carbon Dioxide 25 mmol/L (22-32); Chloride 91 mmol/L (98-107); Estimated Glomerular Filt Rate 28.9 mL/min (>60); HEMOLYSIS < 15 (0-50); Magnesium 1.7 mg/dL (1.6-2.3); Phosphorous 3.8 mg/dL (2.8-4.1); Potassium 4.5 mmol/L (3.4-5.1); Sodium 127 mmol/L (137-145); Uric Acid 6.4 mg/dL (2.5-6.2)
[2021-02-04 12:17] LABS: Percent Iron Saturation 12 % (15-50); Total Iron Binding Capacity 337 ug/dL (265-497); Transferrin 275 mg/dL (206-381)
[2021-02-04 12:25] LABS: Vitamin D 25 Hydroxy (D3) 40.2 ng/mL (30.0-100.0)
[2021-02-04 12:42] LABS: Ferritin 12 ng/mL (11-264)
[2021-02-04 12:50] LABS: Appearance Urine UA CLEAR; Bilirubin Urine UA NEGATIVE (NEGATIVE); Color Urine UA YELLOW; Glucose Urine UA 3+ g/dL (Negative); Ketones Urine UA NEGATIVE (NEGATIVE); Leukocyte Esterase Urine UA TRACE (NEGATIVE); Nitrite Urine UA NEGATIVE (Negative); Occult Blood Urine UA TRACE-LYSED (Negative); Protein Urine UA 2+ (Negative); Specific Gravity Urine UA <=1.005 (1.000-1.035); Urobilinogen Urine UA 0.2 E.U./dL (0.2)
[2021-02-04 12:57] LABS: RBC Urine None Seen (0-5/HPF); Squamous Epithelial Cell Urine 5-10 /HPF (0-5/HPF); WBC Urine 5-10/HPF (0-5/HPF)
[2021-02-04 12:58] LABS: Amorphous Sediment Urine 2+; Bacteria Urine Moderate (10-30)
[2021-02-04 13:37] LABS: Creatinine Urine Random 46.6 mg/dL
[2021-02-04 14:07] LABS: Glucose 544 mg/dL (80-110)
[2021-02-04 14:18] LABS: Microalbumin Urine Random 107.6 mg/dL (0-1.6)
[2021-02-05 09:07] LABS: Parathyroid Hormone Int 114 pg/mL (15-65)
[2021-02-05 09:58] LABS: Hemoglobin A1C% w Est Avg Glu 11.6 % (4.0-6.0)
== END ==
PROVIDERS: PCP Student in an Organized Health Care Education/Training Program; Referring Provider Internal Medicine Nephrology; Visit Provider Internal Medicine Nephrology
DX: E11.9 Type 2 diabetes mellitus without complications (principal); R80.9 Proteinuria, unspecified; N18.32 Chronic kidney disease, stage 3b; D64.9 Anemia, unspecified; R39.15 Urgency of urination
CPT/HCPCS: 36415; 80048; 81001; 82043; 82306; 82570; 82728; 83036; 83540; 83550; 83735; 83970; 84100; 84550; 85025; 87086

== ENCOUNTER → 2021-03-28 15:45 | Outpatient (CLI) | payer MEDICARE, OTHER, SELFPAY ==
[2020-10-15 21:40] VITALS: BMI 24.7
[2021-03-28 16:08] LABS: Add Manual Diff / Slide Review NO; Basophils Absolute Auto 100 /uL (0-100); Basophils Percent Auto 0.6 % (0-2); Eosinophils Absolute Auto 100 /uL (0-450); Eosinophils Percent Auto 1.6 % (2-4); Hematocrit 31.8 % (36-46); Hemoglobin 10.4 g/dL (12.0-16.0); Lymphocytes Absolute Auto 1600 /uL (1100-4500); Lymphocytes Percent Auto 17.8 % (25-40); Mean Corpuscular HGB Conc 32.6 % (30-36); Mean Corpuscular Hemoglobin 25.2 PG (26-34); Mean Corpuscular Volume 77.2 fL (80-100); Monocytes Absolute Auto 500 /uL (0-900); Neutrophils Absolute Auto 6500 /uL (1500-7000); Platelet Count 314 X10^3/uL (150-400); Red Blood Cell Count 4.12 X10^6/uL (4.0-5.2); Red Cell Distribution Width 15.6 % (11.6-14.8); White Blood Cell Count 8.8 X10^3/uL (4.5-11.0)
[2021-03-28 16:43] LABS: Uric Acid 5.9 mg/dL (2.5-6.2)
[2021-03-31 12:26] LABS: BUN Creatinine Ratio 8.8 (6-22); Blood Urea Nitrogen 16 mg/dL (7-17); Calcium 8.6 mg/dL (8.4-10.2); Carbon Dioxide 22 mmol/L (22-32); Chloride 99 mmol/L (98-107); Estimated Glomerular Filt Rate 27.3 mL/min (>60); Glucose 437 mg/dL (80-110); HEMOLYSIS < 15 (0-50); Potassium 4.4 mmol/L (3.4-5.1); Sodium 132 mmol/L (137-145)
== END ==
PROVIDERS: PCP Student in an Organized Health Care Education/Training Program; Referring Provider Internal Medicine Nephrology; Visit Provider Internal Medicine Nephrology
DX: N18.32 Chronic kidney disease, stage 3b (principal); D64.9 Anemia, unspecified; R80.9 Proteinuria, unspecified
CPT/HCPCS: 36415; 80048; 84550; 85025

== ENCOUNTER 2021-05-09 19:33 | Observation (INO) | payer MEDICARE, OTHER, SELFPAY ==
[2020-10-15 21:40] VITALS: BMI 24.7
[2021-05-09 19:44] VITALS: BP 173/81; PULSE 104; RESP 18; TEMP 36.4; O2SAT 100; BMI 22.6
--- NOTE | 2021-05-09 19:48 | DI.RAD.S_ITS ---
PROCEDURE: XR CHEST 1V INDICATIONS: chest pain TECHNIQUE: One view of the chest was acquired. COMPARISON: [facility], [place], XR CHEST 1V, 05/25/2020, 0:19. FINDINGS: Surgical changes and devices: None. Lungs and pleura: Lungs are clear. No pleural effusions or pneumothorax. Mediastinum: Mediastinal contours appear normal. Heart size is normal. Bones and chest wall: No suspicious bony lesions. Overlying soft tissues appear unremarkable. IMPRESSION: No acute cardiopulmonary disease process. Dictated by: Britney Victor MD, PhD on 05/09/2021 at 20:19 Approved by: Britney Victor MD, PhD on 05/09/2021 at 20:19
[2021-05-09 19:56] LABS: Add Manual Diff / Slide Review NO; Basophils Absolute Auto 0 /uL (0-100); Basophils Percent Auto 0.6 % (0-2); Eosinophils Absolute Auto 100 /uL (0-450); Eosinophils Percent Auto 1.2 % (2-4); Hematocrit 35.2 % (36-46); Hemoglobin 11.8 g/dL (12.0-16.0); Lymphocytes Absolute Auto 1300 /uL (1100-4500); Lymphocytes Percent Auto 15.2 % (25-40); Mean Corpuscular HGB Conc 33.4 % (30-36); Mean Corpuscular Hemoglobin 25.4 PG (26-34); Monocytes Absolute Auto 500 /uL (0-900); Monocytes Percent Auto 6.3 % (3-14); Neutrophils Absolute Auto 6400 /uL (1500-7000); Neutrophils Percent Auto 76.7 % (50-75); Platelet Count 333 X10^3/uL (150-400); Red Blood Cell Count 4.63 X10^6/uL (4.0-5.2); Red Cell Distribution Width 15.2 % (11.6-14.8); White Blood Cell Count 8.3 X10^3/uL (4.5-11.0)
--- NOTE | 2021-05-09 20:01 | ED_ITS ---
HPI - Chest Pain General Chief Complaint: Chest Pain Stated Complaint: PASSED OUT TOOK 2 NITROGLYCERIN Time Seen by Provider: 05/09/21 19:51 Source: patient and family Mode of arrival: Wheelchair History of Present Illness HPI narrative: Patient here for syncope after taking nitro at home. She had chest pain left- sided that radiated to her left elbow and to her left scapula. Patient states she has history of heart attack in the past however no history of stents or bypass surgery. Patient sees [facility] Cardiology Dr. Ferraro. Has nausea. [place] short of breath. No numbness tingling or weakness. Related Data Home Medications Medication Instructions Recorded Confirmed alcohol swabs pad TOPICAL 05/10/21 Previous Rx's Medication Instructions Recorded sennosides 8.6 mg tablet (senna) 17.2 mg PO BEDTIME #10 tab 10/20/20 atorvastatin 40 mg tablet 40 mg PO BEDTIME #90 tab 11/28/20 cholecalciferol (vitamin D3) 25 25 mcg PO BID #180 tab 11/28/20 mcg (1,000 unit) tablet clopidogrel 75 mg tablet 75 mg PO DAILY #90 tab 11/28/20 colestipol 1 gram tablet 1 g PO BID #180 tab 11/28/20 docusate sodium 100 mg capsule 100 mg PO DAILY #90 cap 11/28/20 (DOK) famotidine 40 mg tablet 40 mg PO DAILY #90 tab 11/28/20 hydromorphone 2 mg tablet 2 mg PO BID PRN #60 tab 11/28/20 insulin pen needles #100 ea 11/28/20 lisinopril 5 mg tablet 5 mg PO BID #90 tab 11/28/20 sertraline 50 mg tablet 50 mg PO DAILY #90 tab 11/28/20 metoprolol tartrate 50 mg tablet 50 mg PO BID #180 tab 11/29/20 nitroglycerin 0.2 mg/hr 1 patch TRANSDERMAL DAILY #30 ea 11/29/20 transdermal 24 hour patch torsemide 20 mg tablet 20 mg PO DAILY #90 tab 11/29/20 alcohol swabs (Alcohol Wipes) 1 pad TOPICAL DAILY #100 ea 12/14/20 blood glucose test strips #100 ea 12/14/20 blood glucose testing lancet #100 ea 12/14/20 blood-glucose meter (Blood Glucose #1 ea 12/14/20 Monitoring) insulin aspar prot-insulin aspart 20 unit (0.2 mL) SUBCUT BID #3 ml 03/01/21 100 unit/mL (70-30) subcutaneous pen (Novolog Mix 70-30FlexPen U-100) Allergies Allergy/AdvReac Type Severity Reaction Status Date / Time dimenhydrinate Allergy Verified 02/28/21 13:36 [From Dramamine] diphenhydramine AdvReac Verified 02/28/21 13:36 [From Benadryl] hydrocodone AdvReac Verified 02/28/21 13:36 Review of Systems Review of Systems Narrative: GENERAL: Denies chills, fatigue, malaise, fever, sweats. HEENT: Denies sinus pain, ear pain, sore throat RESPIRATORY: Denies dyspnea, cough CARDIOVASCULAR: Positive for chest pain, negative for palpitations GASTROINTESTINAL: Denies nausea, vomiting, abdominal pain : Denies dysuria, frequency, hematuria MUSCULOSKELETAL: denies muscle or bony pain SKIN: Denies rash, skin lesions NEUROLOGIC: Denies weakness, numbness ROS Unobtainable: All systems reviewed & are unremarkable except as noted in HPI and below Patient History Medical History Acute pancreatitis CHF (congestive heart failure) Diabetes mellitus type 2 in obese Myocardial infarction Plaque psoriasis Surgical History History of appendectomy History of bilateral hip replacements History of cholecystectomy History of left knee surgery History of surgery on right wrist Family History Mother Congestive heart failure Brother Congestive heart failure Social History household members: family and children Smoking Status: Never smoker alcohol intake: never Smoking Status: Never smoker Substance Use Type: does not use Exam Narrative Exam Narrative: GENERAL: in no distress, not toxic not dyspneic HEAD: Normocephalic. EYES: Pupils equal round No scleral icterus. ENT: Mucous membranes moist. NECK: Trachea midline. CARDIOVASCULAR: Regular rate and rhythm without murmurs RESPIRATORY: Clear to auscultation. Breath sounds equal bilaterally. No wheezes, rales, or rhonchi. GASTROINTESTINAL: Abdomen soft, non-tender EXTREMITIES: No gross deformities. BACK: No flank tenderness. NEURO: AOx4. SKIN: Warm and dry PSYCH: Not anxious, is cooperative Initial Vital Signs Initial Vital Signs: Vital Signs Temperature 97.6 F 05/09/21 19:44 Pulse Rate 104 H 05/09/21 19:44 Respiratory Rate 18 05/09/21 19:44 Blood Pressure 173/81 H 05/09/21 19:44 Pulse Oximetry 100 05/09/21 19:44 Course Course Course Narrative: No new issues during course of stay. Orders Ordered: ED Orders 05/09/21 19:45 Complete Blood Count AUTO DIFF Stat Comprehensive Metabolic Panel Stat Lipase Stat Magnesium Stat Troponin & CK Cardiac Panel Stat 05/09/21 19:48 XR chest 1V Stat EKG-12 Lead Stat 05/09/21 20:04 COVID19 -Nasal swab/Pre-Proc Stat 05/09/21 21:49 NT-proBNP (BNP-Adult 18+) Urgent Trop I [Troponin I] Stat 05/09/21 22:50 Education, smoking cessation ONGOING 05/10/21 05:00 Complete Blood Count AUTO DIFF Routine Comprehensive Metabolic Panel DAILY 05/11/21 05:00 Comprehensive Metabolic Panel DAILY 05/12/21 05:00 Comprehensive Metabolic Panel DAILY Acetaminophen (Acetaminophen 325 Mg Tablet) 650 mg PO Q6HR PRN PRN Reason: Fever/Mild Pain (1-3) Aspirin (Aspirin Ec 81 Mg Tablet) 81 mg PO DAILY CARLOS Dextrose (Dextrose 50 % In Water 25 Gm/50 Ml Syringe) 25 gm IV PRN PRN PRN Reason: Hypoglycemia Enoxaparin Sodium (Enoxaparin 40 Mg/0.4 Ml Syringe) 40 mg SUBCUT DAILY CARLOS Sodium Chloride (Normal Saline 0.9%) 1,000 mls @ 80 mls/hr IV CONT CARLOS Last Admin: 05/10/21 00:28 Dose: 80 mls/hr Documented by: [email or web address] Insulin Human Lispro (Insulin Lispro 100 Unit/Ml 3ml Vial) 0 unit SUBCUT ACHS CARLOS; Protocol Morphine Sulfate (Morphine 2 Mg/Ml Inj) 2 mg IV Q5MIN PRN PRN Reason: Chest Pain Naloxone HCl (Naloxone 0.4 Mg/Ml Vial) 0.2 mg IV Q2MIN PRN PRN Reason: Opiate Reversal Nitroglycerin (Nitroglycerin 0.4 Mg Sl Tab) 0.4 mg SL [id number] PRN PRN Reason: Chest Pain Ondansetron HCl (Ondansetron 4 Mg/2 Ml Inj) 4 mg IV Q8HR PRN PRN Reason: Nausea And Vomiting Discontinued Medications Aspirin (Aspirin 81 Mg Chew Tab) 324 mg PO NOW ONE Stop: 05/09/21 20:07 Last Admin: 05/09/21 20:12 Dose: 324 mg Documented by: CLAY Insulin Human Regular (Insulin Regular 100 Unit/Ml 3 Ml Vial) 10 unit SUBCUT NOW ONE Stop: 05/09/21 22:51 Last Admin: 05/09/21 23:32 Dose: 10 unit Documented by: CLAY Cosigned by: LISETTE Lorazepam (Lorazepam 1 Mg Tablet) 0.5 mg PO NOW ONE Stop: 05/09/21 23:09 Lorazepam (Lorazepam 0.5 Mg Tablet) 0.5 mg PO NOW ONE Stop: 05/09/21 23:46 Morphine Sulfate (Morphine 4 Mg/Ml Inj) 2 mg IV NOW ONE Stop: 05/09/21 21:06 Last Admin: 05/09/21 21:18 Dose: 2 mg Documented by: CLAY Nitroglycerin (Nitroglycerin Oint 1 Inch/Gm Oint...G.) 0.5 inch TOP NOW ONE Stop: 05/09/21 20:07 Last Admin: 05/09/21 20:12 Dose: 0.5 inch Documented by: CLAY Ondansetron HCl (Ondansetron 4 Mg/2 Ml Inj) 4 mg IV NOW ONE Stop: 05/09/21 21:06 Last Admin: 05/09/21 21:18 Dose: 4 mg Documented by: CLAY Reevaluation(s) Reevaluation #1: Spoke with patient and daughter. They agree for admit. Time: 21:00 Consultations Consultation #1: Spoke with Dr. ferraro, her hand candy molder, agrees patient to be admitted here. No indication for transfer. stress echo tomorrow I sent him the EKGs. They are reassuring at this time. Time: 21:00 Consultation #2: Spoke with hospitalist, Marleen Tavera, will admit Time: 22:51 Vital Signs Vital signs: Vital Signs - 8 hr 05/09/21 19:44 Temperature 97.6 F Pulse Rate 104 H Respiratory Rate 18 Blood Pressure 173/81 H Pulse Oximetry 100 MDM - Chest Pain Differential Diagnosis Differential diagnosis: Likely stable angina, unstable angina pectoris, st elevation myocardial infarction, chest pain and other (Non-STEMI) Lab Data Result diagrams: 05/09/21 19:45 05/09/21 19:45 Labs: Lab Results 05/09/21 05/09/21 05/09/21 Range/Units 19:45 19:45 19:45 WBC 8.3 (4.5-11.0) X10^3/uL RBC 4.63 (4.0-5.2) X10^6/uL Hgb 11.8 L (12.0-16.0) g/dL Hct 35.2 L (36-46) % MCV 76.0 L (80-100) fL MCH 25.4 L (26-34) PG MCHC 33.4 (30-36) % RDW 15.2 H (11.6-14.8) % Plt Count 333 (150-400) X10^3/uL Neut % (Auto) 76.7 H (50-75) % Lymph % (Auto) 15.2 L (25-40) % [place] % (Auto) 6.3 (3-14) % Eos % (Auto) 1.2 L (2-4) % Baso % (Auto) 0.6 (0-2) % Neut # (Auto) 6400 (7947-0232) /uL Lymph # (Auto) 1300 (1002-4249) /uL [place] # (Auto) 500 (0-900) /uL Eos # (Auto) 100 (0-450) /uL Baso # (Auto) 0 (0-100) /uL Sodium 129 L (137-145) mmol/L Potassium 3.7 (3.4-5.1) mmol/L Chloride 94 L (98-107) mmol/L Carbon Dioxide 28 (22-32) mmol/L BUN 17 (7-17) mg/dL Creatinine 1.69 H (0.52-1.04) mg/dL Estimated GFR 29.5 L (>60) mL/min BUN/Creatinine Ratio 10.1 (6-22) Glucose 458 H (80-110) mg/dL Hemoglobin A1c 13.1 H (4.0-6.0) % Calcium 8.5 (8.4-10.2) mg/dL Magnesium 1.6 (1.6-2.3) mg/dL Total Bilirubin 0.3 (0.2-1.3) mg/dL AST 19 (14-36) IU/L ALT 12 (<35) IU/L Alkaline Phosphatase 174 H (38-126) U/L Total Creatine Kinase 30 (30-135) U/L CK-MB (CK-2) TNP CK-MB (CK-2) Rel Index TNP Troponin I 0.019 (0.01-0.034) ng/mL NT-Pro-B Natriuret Pep (<450) pg/mL Total Protein 6.8 (6.3-8.2) g/dL Albumin 3.4 L (3.5-5.0) g/dL Globulin 3.4 (1.7-4.1) g/dL Albumin/Globulin Ratio 1.0 (1.0-2.8) Lipase 320 H (23-300) U/L SARS-CoV-2 (PCR) (Negative) 05/09/21 05/09/21 05/09/21 Range/Units 20:04 21:49 21:49 WBC (4.5-11.0) X10^3/uL RBC (4.0-5.2) X10^6/uL Hgb (12.0-16.0) g/dL Hct (36-46) % MCV (80-100) fL MCH (26-34) PG MCHC (30-36) % RDW (11.6-14.8) % Plt Count (150-400) X10^3/uL Neut % (Auto) (50-75) % Lymph % (Auto) (25-40) % [place] % (Auto) (3-14) % Eos % (Auto) (2-4) % Baso % (Auto) (0-2) % Neut # (Auto) (2493-9982) /uL Lymph # (Auto) (0817-8600) /uL [place] # (Auto) (0-900) /uL Eos # (Auto) (0-450) /uL Baso # (Auto) (0-100) /uL Sodium (137-145) mmol/L Potassium (3.4-5.1) mmol/L Chloride (98-107) mmol/L Carbon Dioxide (22-32) mmol/L BUN (7-17) mg/dL Creatinine (0.52-1.04) mg/dL Estimated GFR (>60) mL/min BUN/Creatinine Ratio (6-22) Glucose (80-110) mg/dL Hemoglobin A1c (4.0-6.0) % Calcium (8.4-10.2) mg/dL Magnesium (1.6-2.3) mg/dL Total Bilirubin (0.2-1.3) mg/dL AST (14-36) IU/L ALT (<35) IU/L Alkaline Phosphatase (38-126) U/L Total Creatine Kinase (30-135) U/L CK-MB (CK-2) CK-MB (CK-2) Rel Index Troponin I 0.019 (0.01-0.034) ng/mL NT-Pro-B Natriuret Pep 2650 H (<450) pg/mL Total Protein (6.3-8.2) g/dL Albumin (3.5-5.0) g/dL Globulin (1.7-4.1) g/dL Albumin/Globulin Ratio (1.0-2.8) Lipase (23-300) U/L SARS-CoV-2 (PCR) Negative (Negative) Point of Care Testing Glucose POC 411 Urine Dip Bedside Urine Glucose 1000 mg/dl Bedside Urine Bilirubin - Negative Bedside Urine Ketone - Negative Urine Specific [place] 1.015 Bedside Urine Occult Blood +/- Bedside Urine pH 6.5 Bedside Urine Protein +++ 300 Bedside Urine Urobilinogen - Negative Bedside Urine Nitrite - Negative Bedside Urine Leukocytes - Negative Esterase Imaging Data Chest x-ray: Radiologist's Impression: [address] [address] XRay Report Signed Patient: Frances Foley MR#: [id number] : 1945 Acct:[id number] Age/Sex: 75 / F Date of Service: 05/09/21 Loc: ED Accession Number: [id number] ?? Procedure: XR chest 1V Ordering Provider: Tigre Morse MD PROCEDURE:? XR CHEST 1V ? INDICATIONS:? chest pain ? TECHNIQUE:? One view of the chest was acquired.? ? COMPARISON:? [facility], CR, XR CHEST 1V, 05/25/2020, 0:19. ? FINDINGS:? ? Surgical changes and devices:? None.? ? Lungs and pleura:? Lungs are clear.? No pleural effusions or pneumothorax.? ? Mediastinum:? Mediastinal contours appear normal.? Heart size is normal.? ? Bones and chest wall:? No suspicious bony lesions.? Overlying soft tissues appear unremarkable.? ? IMPRESSION:? No acute cardiopulmonary disease process. ? ? Dictated by: Britney Victor MD, PhD on 05/09/2021 at 20:19 ? ? Approved by: Britney Victor MD, PhD on 05/09/2021 at 20:19 ? ECG Data Interpretation: Sinus rhythm rate 87 ST depression inferior lateral leads. Change comparison to EKG from October 31, 2020 at 12:55 p.m. MDM Narrative Medical decision making narrative: Appropriate for admission. Reviewed with hand candy molder patient and daughter. Agree for admit. Currently chest pain-free. Discharge Plan Departure Patient Disposition: Admitted as Observation Clinical Impression: Chest pain Admit Date/Time: 05/09/21 22:50 Admit Provider: Marleen Tavera
[2021-05-09 20:09] LABS: Alanine Aminotransferase 12 IU/L (<35); Albumin 3.4 g/dL (3.5-5.0); Alkaline Phosphatase 174 U/L (38-126); Aspartate Aminotransferase 19 IU/L (14-36); BUN Creatinine Ratio 10.1 (6-22); Bilirubin Total 0.3 mg/dL (0.2-1.3); Blood Urea Nitrogen 17 mg/dL (7-17); Calcium 8.5 mg/dL (8.4-10.2); Carbon Dioxide 28 mmol/L (22-32); Chloride 94 mmol/L (98-107); Creatine Kinase 30 U/L (30-135); Estimated Glomerular Filt Rate 29.5 mL/min (>60); Globulin 3.4 g/dL (1.7-4.1); Glucose 458 mg/dL (80-110); HEMOLYSIS 18 (0-50); Lipase 320 U/L (23-300); Magnesium 1.6 mg/dL (1.6-2.3); Potassium 3.7 mmol/L (3.4-5.1); Sodium 129 mmol/L (137-145); Total Protein 6.8 g/dL (6.3-8.2)
[2021-05-09] MEDS: NITROGLYCERIN OINT 1 INCH/GM OINT...G. 0.5 INCH TOP (20:12)
[2021-05-09] MEDS: ASPIRIN 81 MG CHEW TAB 324 MG PO (20:12)
[2021-05-09 20:20] LABS: Troponin I 0.019 ng/mL (0.01-0.034)
[2021-05-09 20:30] LABS: COVID19 -Nasal RAPID Negative (Negative)
--- NOTE | 2021-05-09 20:50 | PC.NURSE ---
pt was c/o chest pain so daughter gave her a ntg, she was assisting her mother to stand when the pt had a syncopal episode, pt arrives aao x 3 weak with standing, states she only has some pain under the left arm.
[2021-05-09] MEDS: ONDANSETRON 4 MG/2 ML INJ IV (21:18)
[2021-05-09] MEDS: MORPHINE 4 MG/ML INJ 2 MG IV (21:18)
[2021-05-09 22:23] LABS: Troponin I 0.019 ng/mL (0.01-0.034)
--- NOTE | 2021-05-09 22:58 | DI.ECHO.S_ITS ---
[place] [facility]---------+ [facility] +---------+ : : [address] : : : : [id number] : : : : Phone: [phone] Echocardiogram Report + + :Name: BERTIN MARIO Study Date: 05/10/2021 Height: 66 in : :[facility] ReadingLocation: Weight: 140 lb : : Gender: Female BSA: 1.7 m2 : :: 1945 Age: 75 yrs BP: 148/65 mmHg: :Reason For Study: CHEST PAIN : :Ordering Physician: MARTIN, : :СЕРГЕЙ Performed By: Diana Mercer : :Referring: СЕРГЕЙ SALAZAR : + + Interpretation Summary The left ventricle is normal in size and wall thickness. The ejection fraction is estimated to be 45-50%. There is septal wall hypokinesis. There is inferior wall hypokinesis. The right ventricle is normal in size and function. There is mild to moderate mitral regurgitation. There is mild tricuspid regurgitation. The right ventricular systolic pressure is estimated to be at least 33 mmHg based on an estimated right atrial pressure of 3 mm Hg. There is mild luminal irregularity and echogenicity in the abdominal aorta, suggestive of aortic atherosclerotic disease. Moderate atherosclerotic plaque(s) in the aortic arch. Procedure: A two-dimensional transthoracic echocardiogram with color flow and Doppler was performed. The study quality was technically adequate. There is no prior echocardiogram noted for this patient. The patient was in sinus rhythm with heart rates between 73-77 bpm during the exam. Left Ventricle: The left ventricle is normal in size and wall thickness. There is no thrombus. The ejection fraction is estimated to be 45-50%. There is septal wall hypokinesis. There is inferior wall hypokinesis. MV E/A: 0.49 Med Peak E' Jimmy: 4.1 cm/sec E/E' med: 15.9. Right Ventricle: The right ventricle is normal in size and function. Atria: There is mild biatrial enlargement. Right atrial size is normal. There is no Doppler evidence for an interatrial shunt. Mitral Valve: The mitral valve leaflets appear mildly thickened, but open well. There is mild mitral annular calcification. The mitral valve chordae are thickened and/or calcified. There is mild to moderate mitral regurgitation. Aortic Valve: The aortic valve is trileaflet. There is discrete nodular thickening of the non- coronary cusp. There is mild aortic valve sclerosis. There is no aortic valve stenosis. No aortic regurgitation is present. Tricuspid Valve: The tricuspid valve is normal. There is mild tricuspid regurgitation. The right ventricular systolic pressure is estimated to be at least 33 mmHg based on an estimated right atrial pressure of 3 mm Hg. Pulmonic Valve: The pulmonic valve leaflets are thin and pliable; valve motion is normal. There is trace pulmonic regurgitation. Great Vessels: The aortic root is normal size. There is mild luminal irregularity and echogenicity in the abdominal aorta, suggestive of aortic atherosclerotic disease. Moderate atherosclerotic plaque(s) in the aortic arch. The IVC is of normal diameter and collapses greater than 50% with a sniff. This suggests a low right atrial pressure of 3 mm Hg. Pericardium/ Pleura There is no pericardial effusion. There is no pleural effusion. MMode/2D Measurements & Calculations LVIDd: 5.1 cm LVOT diam: 2.0 cm LVIDs: 3.9 cm Ao root diam: 3.0 cm FS: 25.0 % Ao Arch Diam (Prox Trans): 2.5 cm IVSd: 0.86 cm LVPWd: 0.96 cm LV pires. diameter/BSA (cm/m^2): 3.0 LV sys. diameter/BSA (cm/m^2): 2.2 LA A2 area: 21.5 cm2 RA long axis: 4.8 cm LA A4 area: 20.3 cm2 RA area: 13.4 cm2 LA length (vol): 5.7 cm RA vol: 32.0 ml LA vol: 64.8 ml RA : 18.6 ml/m2 LA vol index: 37.7 ml/m2 IVC diam: 1.2 cm RVD1 (basal): 2.7 cm TAPSE: 1.7 cm Doppler Measurements & Calculations Ao V2 max: 171.9 cm/sec LVOT Max Jimmy: 86.4 cm/sec Ao V2 mean: 112.6 cm/sec LV V1 max P.0 mmHg Ao max P.8 mmHg LV V1 VTI: 17.7 cm Ao mean P.8 mmHg CATHY(I,D): 1.8 cm2 Ao V2 VTI: 31.3 cm CATHY(V,D): 1.6 cm2 sev ratio: 0.57 CATHY indexed to BSA (cm^2/m^2): 1.1 MV E max jimmy: 65.2 cm/sec TR max jimmy: 273.4 cm/sec MV A max jimmy: 132.3 cm/sec TR max P.9 mmHg MV E/A: 0.49 PA V2 max: 94.6 cm/sec Med Peak E' Jimmy: 4.1 cm/sec PA V2 mean: 67.7 cm/sec E/E' med: 15.9 PA mean P.0 mmHg Lat Peak E' Jimmy: 8.8 cm/sec PA pr(Accel): 32.8 mmHg E/E' lat: 7.4 E/e' average: 11.6 MV dec time: 0.24 sec SV(LVOT): 56.6 ml Reading Physician:01:42 PM
[2021-05-09 23:19] LABS: Hemoglobin A1C% w Est Avg Glu 13.1 % (4.0-6.0)
[2021-05-09 23:25] LABS: NT-proBNP (BNP-Adult 18+) 2650 pg/mL (<450)
[2021-05-09] MEDS: INSULIN REGULAR 100 UNIT/ML 3 ML VIAL 10 UNIT SUBCUT (23:32)
[2021-05-09 23:55] VITALS: BP 183/78; PULSE 74; RESP 18; TEMP 36.9; O2SAT 98
[2021-05-10] VITALS (12 sets, daily range): BP systolic 89–168; BP diastolic 40–92; PULSE 68–92; RESP 15–20; TEMP 36.4–36.7; O2SAT 92–100; BMI 22.4
[2021-05-10] MEDS: SODIUM CHLORIDE 0.9% 1,000 ML 80 ML IV (00:28)
--- NOTE | 2021-05-10 02:58 | P.HP_ITS ---
History of Present Illness History of Present Illness Date Patient Seen: 05/09/21 Time Patient Seen: 23:01 Chief complaint: PASSED OUT TOOK 2 NITROGLYCERIN Narrative: Frances Foley is a 75 year old female has a history of CHF, hypertension, GERD, hyperlipidemia, diabetes type 2, and ND without stent placement in 2019, who presented to the ED following a syncope after taking oral & topical nitro at home for chest pain.? Her chest pain left-sided that radiated to her left elbow and left scapula.? Patient sees [facility] Dr. Lao.?Patients chets pain had resolved prior to arrival in the ED. Patient denies Chest pain, SOB, Cough, URI s/s, abd pain, nausea, vomiting, diarrhea, numbness, tingling, weakness, recent illness, injury, or trauma. Patient's vitals are stable upon admit temp 97.6?, BP 173/81, HR 104, RR 18, O2 saturation 100% on room air. HGB 11.8, HCT 35.2, hyponatremia sodium 129, Cl 94, creatinine 1.69, glucose 458, GFR 29.5. Troponin was within normal limits 0.019, lipase 320, alk-phos 174, patient's chest x-ray was negative for acute cardiopulmonary process. Heart Score:6. EKG sinus rhythm with a rate of 87 ST depression in the inferior lateral leads change from 10/31/[address] Niharika Santoyo at [facility] personally reviewed the patient's EKGs and determine patient did not require transfer to [facility], and suitable for admit for observation with stress test and echo tomorrow. Patient admitted for Chest pain. Patient History Medical History (Updated 05/10/21 @ 03:33 by ELIER Hernandez) Acute pancreatitis CHF (congestive heart failure) Diabetes mellitus type 2 in obese Essential hypertension Myocardial infarction Plaque psoriasis Surgical History History of appendectomy History of bilateral hip replacements History of cholecystectomy History of left knee surgery History of surgery on right wrist Family & Social History Family History Mother Congestive heart failure Brother Congestive heart failure Social History: household members family,children Prior Living Arrangements House Safety & Behavioral: Feels Safe in Current Yes Environment Been Physically Hurt or No Threatened By a Person Suicidal Ideation Description None Suicide Plan Description No Plan Tobacco & Substance use: Smoking Status Never smoker alcohol intake never Substance Use Type does not use Meds Home Medications and Allergies Home Medications Medication Instructions Recorded Confirmed Type sennosides 8.6 mg tablet (senna) 17.2 mg PO BEDTIME #10 tab 10/20/20 05/10/21 Rx atorvastatin 40 mg tablet 40 mg PO BEDTIME #90 tab 11/28/20 05/10/21 Rx cholecalciferol (vitamin D3) 25 25 mcg PO BID #180 tab 11/28/20 05/10/21 Rx mcg (1,000 unit) tablet clopidogrel 75 mg tablet 75 mg PO DAILY #90 tab 11/28/20 05/10/21 Rx colestipol 1 gram tablet 1 g PO BID #180 tab 11/28/20 05/10/21 Rx docusate sodium 100 mg capsule 100 mg PO DAILY #90 cap 11/28/20 05/10/21 Rx (DOK) famotidine 40 mg tablet 40 mg PO DAILY #90 tab 11/28/20 05/10/21 Rx hydromorphone 2 mg tablet 2 mg PO BID PRN #60 tab 11/28/20 05/10/21 Rx insulin pen needles #100 ea 11/28/20 05/10/21 Rx lisinopril 5 mg tablet 5 mg PO BID #90 tab 11/28/20 05/10/21 Rx sertraline 50 mg tablet 50 mg PO DAILY #90 tab 11/28/20 05/10/21 Rx metoprolol tartrate 50 mg tablet 50 mg PO BID #180 tab 11/29/20 05/10/21 Rx nitroglycerin 0.2 mg/hr 1 patch TRANSDERMAL DAILY #30 ea 11/29/20 05/10/21 Rx transdermal 24 hour patch torsemide 20 mg tablet 20 mg PO DAILY #90 tab 11/29/20 05/10/21 Rx alcohol swabs (Alcohol Wipes) 1 pad TOPICAL DAILY #100 ea 12/14/20 05/10/21 Rx blood glucose test strips #100 ea 12/14/20 05/10/21 Rx blood glucose testing lancet #100 ea 12/14/20 05/10/21 Rx blood-glucose meter (Blood Glucose #1 ea 12/14/20 02/28/21 Rx Monitoring) insulin aspar prot-insulin aspart 20 unit (0.2 mL) SUBCUT BID #3 ml 03/01/21 05/10/21 Rx 100 unit/mL (70-30) subcutaneous pen (Novolog Mix 70-30FlexPen U-100) alcohol swabs pad TOPICAL 05/10/21 History Allergies Allergy/AdvReac Type Severity Reaction Status Date / Time dimenhydrinate Allergy Verified 02/28/21 13:36 [From Dramamine] diphenhydramine AdvReac Verified 02/28/21 13:36 [From Benadryl] hydrocodone AdvReac Verified 02/28/21 13:36 Review of Systems Review of Systems Narrative: All 12 point systems reviewed with the patient and are negative except otherwise documented. Exam Vital Signs (past 8 hours): - 05/09/21 19:44 05/09/21 23:55 05/10/21 01:19 Temperature 97.6 F 98.5 F Pulse Rate 104 H 74 Respiratory Rate 18 18 Blood Pressure 173/81 H 183/78 H Pulse Oximetry 100 98 98 05/10/21 01:23 05/10/21 02:00 Temperature Pulse Rate 71 Respiratory Rate 15 Blood Pressure 148/65 H Pulse Oximetry 100 98 Oxygen Delivery Method Room Air Oxygen Flow Rate 0 Narrative Exam Narrative: General: Patient is a well-developed, well-nourished female in no distress at this time. HEENT: Normocephalic, atraumatic, extraocular muscles intact, oral pharynx is clear and mucous membranes are moist. Neck is supple and symmetric, trachea is midline, no adenopathy, no thyroid enlargement, nontender, no masses palpated. Negative for JVD Chest: Normal AP diameter and contour without kyphoscoliosis, no nasal flaring, retractions, or tachypneic labored Lungs: Auscultation of all lung [place] are clear without adventitious sounds, wheezes, rhonchi, or rales. Cardio: regular rate and rhythm without murmur, rubs, or gallops, no carotid bruit, no cardiac pulsations present. Abdomen: Soft nontender, negative for organomegaly, or masses. Bowel sounds are present in all 4 quadrants without guarding or rebound, no CVA tenderness. Musculoskeletal: Muscle strength and tone are equal within normal limits, no deformity, crepitus, effusions, cyanosis, clubbing or edema present. Full range of motion intact radial and pedal pulses are normal. Skin: Warm dry and intact without rashes, ulcerations or petechiae. Neuro: Alert and orientated x3, strength is +5/5 in all extremities, sensation to touch intact, no gross deficits noted of cranial nerves. Psych: Patient has a well-kept appearance, appropriate affect. Objective Labs Result Diagrams: 05/09/21 19:45 05/09/21 19:45 Labs: Laboratory Results - last 24 hr 05/09/21 05/09/21 05/09/21 19:45 19:45 19:45 WBC 8.3 RBC 4.63 Hgb 11.8 L Hct 35.2 L MCV 76.0 L MCH 25.4 L MCHC 33.4 RDW 15.2 H Plt Count 333 Neut % (Auto) 76.7 H Lymph % (Auto) 15.2 L [place] % (Auto) 6.3 Eos % (Auto) 1.2 L Baso % (Auto) 0.6 Neut # (Auto) 6400 Lymph # (Auto) 1300 [place] # (Auto) 500 Eos # (Auto) 100 Baso # (Auto) 0 Sodium 129 L Potassium 3.7 Chloride 94 L Carbon Dioxide 28 BUN 17 Creatinine 1.69 H Estimated GFR 29.5 L BUN/Creatinine Ratio 10.1 Glucose 458 H Hemoglobin A1c 13.1 H Calcium 8.5 Magnesium 1.6 Total Bilirubin 0.3 AST 19 ALT 12 Alkaline Phosphatase 174 H Total Creatine Kinase 30 CK-MB (CK-2) TNP CK-MB (CK-2) Rel Index TNP Troponin I 0.019 NT-Pro-B Natriuret Pep Total Protein 6.8 Albumin 3.4 L Globulin 3.4 Albumin/Globulin Ratio 1.0 Lipase 320 H SARS-CoV-2 (PCR) 05/09/21 05/09/21 05/09/21 20:04 21:49 21:49 WBC RBC Hgb Hct MCV MCH MCHC RDW Plt Count Neut % (Auto) Lymph % (Auto) [place] % (Auto) Eos % (Auto) Baso % (Auto) Neut # (Auto) Lymph # (Auto) [place] # (Auto) Eos # (Auto) Baso # (Auto) Sodium Potassium Chloride Carbon Dioxide BUN Creatinine Estimated GFR BUN/Creatinine Ratio Glucose Hemoglobin A1c Calcium Magnesium Total Bilirubin AST ALT Alkaline Phosphatase Total Creatine Kinase CK-MB (CK-2) CK-MB (CK-2) Rel Index Troponin I 0.019 NT-Pro-B Natriuret Pep 2650 H Total Protein Albumin Globulin Albumin/Globulin Ratio Lipase SARS-CoV-2 (PCR) Negative Assessment & Plan Assessment & Plan narrative: 1. Chest Pain, acute, secondary syncope due to nitroglycerin overdose, acute, present on admission -Heart Score:6, History of [place] -Chest Pain resolved prior to admit, and post nitroglycerin treatment. Patient is stable and asymptomatic. -Continue atorvastatin, ASA, Plavix -Dr. Lao Industrial [employer] Consult: In ED -Risk stratification -echo ordered for tomorrow -Lipids, A1C, TSH, PTH, will trend troponin -Troponin 0.019, troponin 03/28/2021: 0.024 -Ortho stats 2. Hyponatremia as evidence by a sodium of 129, acute on chronic, present on admission -Smith saline at 80cc/hr. -Monitor electrolytes 3. Insulin-dependent type 2 diabetes, acute on chronic, present on admission -patient admitted on diabetes protocol, blood sugar checks a.c. HS -Admit BS 458 -A1c ordered -continue patient's NPH, Low dose sliding scale 4. Chronic Kidney Disease, Acute on Chronic, Present on admission -creatinine 1.69, GFR 29.5 (CKD G4 severely decreased) -03/28/2021 creatinine 1.181, GFR 27.3 -05/2020-Repairer Pump 1.55, Gfr 32.7 Patient kidney function has been impaired >3 months. -Recommend outpatient follow up with Dr. Ibrahim PCP upon discharge. ? 5. Cognitive impairment, chronic, Not present on admission ?-Patient is alert & orientated on admission 6. History of frequent Falls, chronic, present on admission -patient on fall precautions -patient has been frequently falling with significant fractures and injuries, patient now lives with her daughter. ?7. Congestive heart failure, EF of 32-41%, chronic, present on admission -continue patient's Plavix, torsemide -BNP ordered -Monitor fluid status, I&O 8. Hypertension essential, acute on chronic, present on admission -continue the patient's lisinopril, metoprolol 9. Hyperlipidemia, chronic, secondary to diabetes, present on admission -continue the patient's colestipol, atorvastatin 10. GERD, chronic, present on admission -continue famotidine Codestatus:? Full code Surrogate decision maker:Kenia Chu Grand daughter COVID PCR:? Negative DVT VTE prophylaxis: SCDs, Lovenox 40 minutes Estimated length of stay:? Admitted for observation expected length stay less than 2 midnights. I confirmed that the patient's advanced care plan is present, Code status is documented and/or surrogate decision maker is listed in the patient's medical record. I have utilized all available immediate resources to obtain, update, or review the patient's current medications. Time Spent With Patient Critical Care time: I spent a total of [] minutes of critical care time on this patient's care today; this time is exclusive of procedural time. Quality VTE Deep Vein Thrombosis/Pulmonary Embolism Present on Admission: No
[2021-05-10] MEDS: FAMOTIDINE 20 MG TABLET 40 MG PO (04:50)
[2021-05-10 05:14] LABS: Add Manual Diff / Slide Review NO; Basophils Absolute Auto 0 /uL (0-100); Basophils Percent Auto 0.5 % (0-2); Eosinophils Absolute Auto 100 /uL (0-450); Eosinophils Percent Auto 1.5 % (2-4); Hematocrit 29.8 % (36-46); Hemoglobin 9.9 g/dL (12.0-16.0); Lymphocytes Absolute Auto 1400 /uL (1100-4500); Lymphocytes Percent Auto 19.7 % (25-40); Mean Corpuscular HGB Conc 33.1 % (30-36); Mean Corpuscular Hemoglobin 24.9 PG (26-34); Mean Corpuscular Volume 75.1 fL (80-100); Monocytes Absolute Auto 600 /uL (0-900); Neutrophils Absolute Auto 4800 /uL (1500-7000); Neutrophils Percent Auto 69.3 % (50-75); Platelet Count 244 X10^3/uL (150-400); Red Blood Cell Count 3.97 X10^6/uL (4.0-5.2); Red Cell Distribution Width 15.1 % (11.6-14.8); White Blood Cell Count 6.9 X10^3/uL (4.5-11.0)
[2021-05-10 05:27] LABS: Hemoglobin A1C% w Est Avg Glu 13.3 % (4.0-6.0)
[2021-05-10 05:30] LABS: Alanine Aminotransferase 9 IU/L (<35); Albumin 2.8 g/dL (3.5-5.0); Alkaline Phosphatase 117 U/L (38-126); Aspartate Aminotransferase 17 IU/L (14-36); BUN Creatinine Ratio 9.8 (6-22); Bilirubin Total 0.2 mg/dL (0.2-1.3); Blood Urea Nitrogen 19 mg/dL (7-17); Calcium 8.1 mg/dL (8.4-10.2); Carbon Dioxide 30 mmol/L (22-32); Chloride 97 mmol/L (98-107); Cholesterol 203 mg/dL (140-199); Estimated Glomerular Filt Rate 25.3 mL/min (>60); Globulin 2.8 g/dL (1.7-4.1); Glucose 285 mg/dL (80-110); HDL Cholesterol 38 mg/dL (40-60); HEMOLYSIS < 15 (0-50); Potassium 3.8 mmol/L (3.4-5.1); Sodium 130 mmol/L (137-145); Total Protein 5.6 g/dL (6.3-8.2)
[2021-05-10 05:38] LABS: NT-proBNP (BNP-Adult 18+) 2500 pg/mL (<450)
[2021-05-10 05:41] LABS: Troponin I 0.023 ng/mL (0.01-0.034)
[2021-05-10 05:45] LABS: Triglycerides 676 mg/dL (35-150)
[2021-05-10 06:01] LABS: TSH w/ Reflex to FT4 2.27 uIU/mL (0.47-4.68)
--- NOTE | 2021-05-10 06:26 | PC.NURSE ---
Shift Note Admitted a 75-year-old female patient, alert and oriented x3, denies any chest discomfort. Patient has nitro patch and was given nitroglycerin pill by the daughter. No signs of respiratory distress, breath sounds are clear bilaterally. Patient has active bowel sounds, stated had bowel movement yesterday morning, uses bedside commode with adequate urine output. IV access at right ac, started on NS 1L at 80mls/hr. Patient was able to get up with one person assist when transfer from bed to commode. Skin are intact. Afebrile, vital signs are within acceptable limits. Will continue to monitor.
[2021-05-10] MEDS: INSULIN LISPRO 100 UNIT/ML 3ML VIAL SUBCUT ×4 (08:55→20:56)
[2021-05-10] MEDS: INSULIN NPH/REG 70-30 100 UNIT/ML 3ML VIAL 20 UNIT SUBCUT (08:56)
[2021-05-10] MEDS: SERTRALINE 50 MG TABLET PO (08:57)
[2021-05-10] MEDS: METOPROLOL IR 50 MG TABLET PO ×2 (08:57→20:55)
[2021-05-10] MEDS: DOCUSATE 100 MG CAPSULE PO (08:57)
[2021-05-10] MEDS: CLOPIDOGREL 75 MG TABLET PO (08:57)
[2021-05-10] MEDS: ENOXAPARIN 40 MG/0.4 ML SYRINGE SUBCUT (08:57)
[2021-05-10] MEDS: ASPIRIN EC 81 MG TABLET PO (08:57)
[2021-05-10] MEDS: TORSEMIDE 10 MG TABLET 20 MG PO (08:57)
[2021-05-10] MEDS: lisinopriL 5 MG TABLET PO (09:00)
--- NOTE | 2021-05-10 10:23 | PT.IIE ---
Medical History (Last Updated 05/10/21 @ 03:33 by Marleen Tavera, [facility]) Acute pancreatitis CHF (congestive heart failure) Diabetes mellitus type 2 in obese Essential hypertension Myocardial infarction Plaque psoriasis Physical Therapy Inpatient Evaluation/Re-Eval M1 PT/OT-IP Prior Functional Status Start: 05/10/21 12:38 Freq: NEEDED Status: Active Protocol: Document 05/10/21 10:23 AB (Rec: 05/10/21 12:54 AB [email or web address]) Medical Review Prior Functional Status Medical History Reviewed Yes Communication able to make needs known Mobility and Gait pt stated that she is modified independent with all mobilities and ambulation without AD but occasionally uses a SPC/w/c/ FWW, whichever is convenient per pt and uses them when she is not feeling well or if she feels unsteady Social History Household Members family,children Living Arrangements House Number of Floors (Floors) 3 or More Floors Number of Stairs To Enter/Railing? pt stays on main level of the house 2 steps B rails to enter the house Home Environment Standard Height Toilet,Tub/ Shower Home Equipment Front Wheel Walker,Straight Cane,Manual Wheelchair,Raised Toilet Seat w/Armrests,Shower Seat with Backrest,Hand Held Shower,Grab Bars In Shower Additional Social History Comment pt stated that she lives with her daughter, MIKEY and grand daugther M2 PT-IP Current Condition Start: 05/10/21 12:38 Freq: NEEDED Status: Active Protocol: Document 05/10/21 10:23 AB (Rec: 05/10/21 12:54 AB [email or web address]) Physical Therapy Current Condition Current Condition Evaluation Date 05/10/21 Treatment Diagnosis chest pain; syncope; difficulty in walking Onset Date 05/09/21 M3 PT-IP Subjective Start: 05/10/21 12:38 Freq: NEEDED Status: Active Protocol: Document 05/10/21 10:23 AB (Rec: 05/10/21 12:54 AB [email or web address]) Subjective Physical Therapy Visit Type Type Initial Evaluation Visit Start Time 11:10 Visit Stop Time 11:50 Total Visit Minutes 40 Number of CLEARING HOUSE CLERK Visits 0 Physical Therapy Visit Comments Patient Comments agreeable to do PT Therapy Pain Assessment Pain Present Pain Present Denied Pain M4 PT-IP Mobility and Gait Start: 05/10/21 12:38 Freq: NEEDED Status: Active Protocol: Document 05/10/21 10:23 AB (Rec: 05/10/21 12:54 AB [id number]) PT-Bed Mobility Assessment Supine to Sit Supine to Sit Standby Assistance Sit to Supine Sit to Supine Standby Assistance PT-Transfer Assessment Sit to and From Stand Sit to and from Stand Contact Guard Assistance Equipment Transfer Assistive Device Gait Belt,Front Wheeled Walker Orthotic/Prosthetic Devices or Brace: No Comments Mobility Comments checked with nurse and requested orthostatic BP done. BP monitored. BP in supine: 159/70. pt completed supine to sit SBA. able to sit on EOB SBA. c/o headache. BP checked in sittin/56. pt sat for 2 more minutes and BP checked again in sittin/60. pt completed sit to stand CGA and requiring CGA for standing balance using FWW for support. BP checked but pt sat midway of checking dues to dizziness and stated that she has to sit down. Tolerated ~ 30 sec of standing . BP: 89/40. pt rested for ~ 15 sec. BP checked again in sittin/59. pt agreed to stand again and completed CGA . BP checked but again, pt needed to sit down midway of checking due to dizziness. pt tolerated on ~ 10 sec of standing. BP: 103/56. pt lay back in bed. positioned in bed. call light and table placed within reach. BP checked in supine at end of PT session: 152/92. informed nurse regarding BP. PT-Balance Assessment Sitting Balance and Reactions Static Sitting Balance Ability Good Dynamic Sitting Balance Ability Good Standing Balance and Reactions Static Standing Balance Ability Fair Dynamic Standing Balance Ability Fair Device Used FWW M5 PT-IP Objective Assessments Start: 05/10/21 12:38 Freq: NEEDED Status: Active Protocol: Document 05/10/21 10:23 AB (Rec: 05/10/21 12:54 AB [id number]) Orientation Orientation/Cognition Level of Alertness Alert Orientation Name,Place,Situation Language Function Ability Hard of Hearing Safety Awareness Decreased Safety Awareness Gross Range of Motion Lower Extremity ROM Assessment Within Functional Limits Strength Lower Extremity Strength Hip 4-/5 Knee 4-/5 Coordination Assessment Gross Coordination Gross Coordination WNL Sensation Assessment Sensation Gross Sensation WNL Muscle Tone Muscle Tone WNL Yes M6 PT-IP Treatment Start: 05/10/21 12:38 Freq: NEEDED Status: Active Protocol: Document 05/10/21 10:23 AB (Rec: 05/10/21 12:54 AB [id number]) Physical Therapy Treatment Education Education Provided Safety M7 PT-IP Assessment and Plan Start: 05/10/21 12:38 Freq: NEEDED Status: Active Protocol: Document 05/10/21 10:23 AB (Rec: 05/10/21 12:54 AB [email or web address]) PT Summary Assessment and Plan Potential Rehabilitation Potential Fair Status of Condition at Evaluation Evolving Summary Impairments Pain,ROM,Strength,Balance, Coordination,Sensation,Tone, Cognition,Bed Mobility, Transfers,Gait,Activity Tolerance Assessment Summary Pt requiring CGA for sit to stand but unable to ambulate due to decrease in BP. pt BP decreased to 89/40 after standing for ~ 30 sec and unable tolerate much activity. Will continue to assess progress for safe d/c plan. Goals Bed Mobility Goal Independent Transfer Goal Independent,Front Wheeled Walker Gait Goal Independent,Front Wheel Walker Gait Distance 150 Other Goals up/down 2 steps B rails SBA Days to Meet Goals 10 Frequency of Treatment Frequency Of Treatment Once a Day Treatment Plan Physical Therapy Treatment Plan Bed Mobility Training,Transfer Training,Gait Training, Therapeutic Exercise,Balance Retraining,Discharge Planning, Hot or Cold Pack,Neuromuscular Re-ed,Coordination Retraining Precautions Other Precautions orthostatic hypotension Recommendations To Nursing Amount of Assist Needed 1 Person Assist Discharge Recommendations PT Discharge Recommendations Home with 24/ Assist Available,Home Health,SNF Rehab,SNF vs Acute Rehab Transportation Needs at Discharge Private Vehicle,Wheelchair/ Cabulance
[2021-05-10] MEDS: SODIUM CHLORIDE 0.9% 1,000 ML 1000 ML IV (12:31)
--- NOTE | 2021-05-10 16:03 | P.PN_ITS ---
Subjective Subjective Date Patient Seen: 05/10/21 Time Patient Seen: 08:00 Interval history: This morning she felt improved. Her chest pain had resolved. She did feel lightheaded and had positive orthostatics when standing. Exam Vital Signs (past 8 hours): - 05/10/21 10:40 05/10/21 10:43 05/10/21 10:50 Pulse Rate 72 Pulse Rate [Orthostatic Lying] 75 77 Pulse Rate [Orthostatic Sitting] 84 86 Pulse Rate [Orthostatic Standing] 92 H 91 H Respiratory Rate 18 Blood Pressure 152/92 H Blood Pressure [Orthostatic Lying] 159/70 H 152/92 H Blood Pressure [Orthostatic Sitting] 126/60 132/59 L Blood Pressure [Orthostatic Standing] 89/40 L 103/55 L Pulse Oximetry 98 Oxygen Delivery Method Room Air Oxygen Flow Rate 0 Narrative Exam Narrative: General:? no acute distress Lungs:? clear bilaterally Cardio: regular rate and rhythm without murmur, rubs Abdomen:? Soft nontender, nondistended Extremities: no edema Objective Labs Result Diagrams: 05/10/21 04:50 05/10/21 04:50 Labs: Laboratory Results - last 24 hr 05/09/21 05/09/21 05/09/21 19:45 19:45 19:45 WBC 8.3 RBC 4.63 Hgb 11.8 L Hct 35.2 L MCV 76.0 L MCH 25.4 L MCHC 33.4 RDW 15.2 H Plt Count 333 Neut % (Auto) 76.7 H Lymph % (Auto) 15.2 L [place] % (Auto) 6.3 Eos % (Auto) 1.2 L Baso % (Auto) 0.6 Neut # (Auto) 6400 Lymph # (Auto) 1300 [place] # (Auto) 500 Eos # (Auto) 100 Baso # (Auto) 0 Sodium 129 L Potassium 3.7 Chloride 94 L Carbon Dioxide 28 BUN 17 Creatinine 1.69 H Estimated GFR 29.5 L BUN/Creatinine Ratio 10.1 Glucose 458 H Hemoglobin A1c 13.1 H Calcium 8.5 Magnesium 1.6 Total Bilirubin 0.3 AST 19 ALT 12 Alkaline Phosphatase 174 H Total Creatine Kinase 30 CK-MB (CK-2) TNP CK-MB (CK-2) Rel Index TNP Troponin I 0.019 NT-Pro-B Natriuret Pep Total Protein 6.8 Albumin 3.4 L Globulin 3.4 Albumin/Globulin Ratio 1.0 Triglycerides Cholesterol LDL Cholesterol, Calc HDL Cholesterol Lipase 320 H TSH SARS-CoV-2 (PCR) 05/09/21 05/09/21 05/09/21 20:04 21:49 21:49 WBC RBC Hgb Hct MCV MCH MCHC RDW Plt Count Neut % (Auto) Lymph % (Auto) [place] % (Auto) Eos % (Auto) Baso % (Auto) Neut # (Auto) Lymph # (Auto) [place] # (Auto) Eos # (Auto) Baso # (Auto) Sodium Potassium Chloride Carbon Dioxide BUN Creatinine Estimated GFR BUN/Creatinine Ratio Glucose Hemoglobin A1c Calcium Magnesium Total Bilirubin AST ALT Alkaline Phosphatase Total Creatine Kinase CK-MB (CK-2) CK-MB (CK-2) Rel Index Troponin I 0.019 NT-Pro-B Natriuret Pep 2650 H Total Protein Albumin Globulin Albumin/Globulin Ratio Triglycerides Cholesterol LDL Cholesterol, Calc HDL Cholesterol Lipase TSH SARS-CoV-2 (PCR) Negative 05/10/21 05/10/21 05/10/21 04:50 04:50 04:50 WBC 6.9 RBC 3.97 L Hgb 9.9 L Hct 29.8 L MCV 75.1 L MCH 24.9 L MCHC 33.1 RDW 15.1 H Plt Count 244 Neut % (Auto) 69.3 Lymph % (Auto) 19.7 L [place] % (Auto) 9.0 Eos % (Auto) 1.5 L Baso % (Auto) 0.5 Neut # (Auto) 4800 Lymph # (Auto) 1400 [place] # (Auto) 600 Eos # (Auto) 100 Baso # (Auto) 0 Sodium 130 L Potassium 3.8 Chloride 97 L Carbon Dioxide 30 BUN 19 H Creatinine 1.93 H Estimated GFR 25.3 L BUN/Creatinine Ratio 9.8 Glucose 285 H D Hemoglobin A1c Calcium 8.1 L Magnesium Total Bilirubin 0.2 AST 17 ALT 9 Alkaline Phosphatase 117 D Total Creatine Kinase CK-MB (CK-2) CK-MB (CK-2) Rel Index Troponin I 0.023 NT-Pro-B Natriuret Pep Total Protein 5.6 L Albumin 2.8 L Globulin 2.8 Albumin/Globulin Ratio 1.0 Triglycerides 676 H Cholesterol 203 H LDL Cholesterol, Calc TNP HDL Cholesterol 38 L Lipase TSH 2.27 SARS-CoV-2 (PCR) 05/10/21 05/10/21 04:50 04:50 WBC RBC Hgb Hct MCV MCH MCHC RDW Plt Count Neut % (Auto) Lymph % (Auto) [place] % (Auto) Eos % (Auto) Baso % (Auto) Neut # (Auto) Lymph # (Auto) [place] # (Auto) Eos # (Auto) Baso # (Auto) Sodium Potassium Chloride Carbon Dioxide BUN Creatinine Estimated GFR BUN/Creatinine Ratio Glucose Hemoglobin A1c 13.3 H Calcium Magnesium Total Bilirubin AST ALT Alkaline Phosphatase Total Creatine Kinase CK-MB (CK-2) CK-MB (CK-2) Rel Index Troponin I NT-Pro-B Natriuret Pep 2500 H Total Protein Albumin Globulin Albumin/Globulin Ratio Triglycerides Cholesterol LDL Cholesterol, Calc HDL Cholesterol Lipase TSH SARS-CoV-2 (PCR) [facility] Medical History (Updated 05/10/21 @ 03:33 by KOREY Hernandez-LUDY) Acute pancreatitis CHF (congestive heart failure) Diabetes mellitus type 2 in obese Essential hypertension Myocardial infarction Plaque psoriasis Surgical History History of appendectomy History of bilateral hip replacements History of cholecystectomy History of left knee surgery History of surgery on right wrist Family History Mother Congestive heart failure Brother Congestive heart failure Social History household members: family and children Smoking Status: Never smoker alcohol intake: never Assessment & Plan Assessment & Plan narrative: 1. Chest Pain, and syncope -Heart Score:6, History of [place] -Chest Pain resolved prior to admit, and post nitroglycerin treatment.? Patient is stable and asymptomatic. -Continue atorvastatin, ASA, Plavix -echo ordered which showed EF 45-50%, slight decreased from prior, and continued septal wall and inferior wall hypokinesis -trend troponins 2. Hyponatremia as evidence by a sodium of 129, chronic -monitor closely 3. Orthostatic hypotension -likely secondary to diuresis and anti-hypertensives -first stop torsemide -bolus 1L IVF and recheck orthostatics 3. Insulin-dependent type 2 diabetes -patient admitted on diabetes protocol, blood sugar checks a.c. HS -Admit BS 458 -A1c >13 -continue patient's NPH, Low dose sliding scale 4. 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 5. Cognitive impairment, chronic, Not present on admission ?-Patient is alert & orientated on admission 6. History of frequent Falls, chronic, present on admission -patient on fall precautions -patient has been frequently falling with significant fractures and injuries, patient now lives with her daughter. ?7. Congestive heart failure, EF of 32-41%, chronic, present on admission -continue patient's Plavix -appears slightly hypovolemic 8. Hypertension essential, acute on chronic, present on admission -continue the patient's metoprolol 9. Hyperlipidemia, chronic, secondary to diabetes, present on admission -continue the patient's colestipol, atorvastatin 10. GERD, chronic, present on admission -continue famotidine Time Spent With Patient Critical Care time: I spent a total of [] minutes of critical care time on this patient's care today; this time is exclusive of procedural time. Quality VTE Deep Vein Thrombosis/Pulmonary Embolism Present on Admission: No
--- NOTE | 2021-05-10 16:13 | DIET.CONS2 ---
Dietary Inpatient Consultation Note Admission Date: 05/09/2021 22:50 Pt to be seen by Language Interpreter on as pts A1c climbed from 11 to 13 since February 2021. Diet: 05/09/21 Breakfast Carbohydrate Consistent Diet Diet Modifications: Carbohydrate level: Small (2 CHO) Bedtime snack: Yes Nutrition Percent Meal Consumed 100% 05/10/21 04:00 Electronically Signed by: Kayli Sierra 05/10/21 16:13 Clinical Dietitian [address] [address]
[2021-05-10] MEDS: SODIUM CHLORIDE 0.9% 500 ML 1000 ML IV (16:30)
--- NOTE | 2021-05-10 18:40 | PC.NURSE ---
Day Shift Note Patient alert and oriented to self and place, intermittent forgetfulness noted, especially right after waking. Denies chest pain, denies shortness of breath. Pt exhibited orthostatic hypotension when working with PT and was only able to stand at side of bed (no ambulation) - see charted VS. 1L NS bolus administered per MD order, orthostatics taken post bolus and much improved - see charted VS. Reported to MD and additional 500 ml NS bolus ordered and administered. Pt denies dizziness when standing up but is weak when transferring to BSC. SpO2 92-94% RA. Call light within reach. Bed alarm on for safety.
[2021-05-10] MEDS: ATORVASTATIN 20 MG TABLET 40 MG PO (20:55)
[2021-05-10] MEDS: COLESTIPOL 1 GM TABLET PO (20:55)
[2021-05-10] MEDS: SENNOSIDES 8.6 MG TABLET 17.2 MG PO (20:55)
[2021-05-10] MEDS: INSULIN GLARGINE 100 UNIT/ML 3ML PEN 20 UNIT SUBCUT (20:55)
[2021-05-10] MEDS: SODIUM CHLORIDE 0.9% FLUSH 10 ML IV (20:58)
[2021-05-11] VITALS (11 sets, daily range): BP systolic 117–209; BP diastolic 57–84; PULSE 52–92; RESP 16–17; TEMP 35.9–36.6; O2SAT 97–100
[2021-05-11 05:23] LABS: Hematocrit 28.2 % (36-46); Hemoglobin 9.3 g/dL (12.0-16.0); Mean Corpuscular Volume 75.6 fL (80-100); Platelet Count 233 X10^3/uL (150-400); Red Blood Cell Count 3.73 X10^6/uL (4.0-5.2); Red Cell Distribution Width 15.1 % (11.6-14.8); White Blood Cell Count 6.8 X10^3/uL (4.5-11.0)
[2021-05-11 05:28] LABS: Alanine Aminotransferase 10 IU/L (<35); Albumin 2.6 g/dL (3.5-5.0); Alkaline Phosphatase 111 U/L (38-126); Aspartate Aminotransferase 20 IU/L (14-36); BUN Creatinine Ratio 9.5 (6-22); Bilirubin Total 0.2 mg/dL (0.2-1.3); Blood Urea Nitrogen 17 mg/dL (7-17); Calcium 8.2 mg/dL (8.4-10.2); Carbon Dioxide 29 mmol/L (22-32); Chloride 105 mmol/L (98-107); Estimated Glomerular Filt Rate 27.6 mL/min (>60); Globulin 2.7 g/dL (1.7-4.1); Glucose 113 mg/dL (80-110); HEMOLYSIS < 15 (0-50); Sodium 136 mmol/L (137-145); Total Protein 5.3 g/dL (6.3-8.2)
[2021-05-11] MEDS: FAMOTIDINE 20 MG TABLET 40 MG PO (05:30)
[2021-05-11 05:40] LABS: Troponin I 0.018 ng/mL (0.01-0.034)
--- NOTE | 2021-05-11 06:32 | PC.NURSE ---
Shift Note-Patient has been drowsy and forgetful, denies chest pain, pressure, or dizziness, orthostatic vitals done in am: 63, 179/79; 65, 167/81; 78,117/57.
[2021-05-11] MEDS: SODIUM CHLORIDE 0.9% 500 ML 1000 ML IV ×3 (07:37→16:14)
[2021-05-11] MEDS: DOCUSATE 100 MG CAPSULE PO (08:38)
[2021-05-11] MEDS: ENOXAPARIN 40 MG/0.4 ML SYRINGE SUBCUT (08:38)
[2021-05-11] MEDS: METOPROLOL IR 50 MG TABLET PO (08:39)
[2021-05-11] MEDS: ASPIRIN EC 81 MG TABLET PO (08:39)
[2021-05-11] MEDS: CLOPIDOGREL 75 MG TABLET PO (08:39)
[2021-05-11] MEDS: SERTRALINE 50 MG TABLET PO (08:39)
[2021-05-11] MEDS: INSULIN LISPRO 100 UNIT/ML 3ML VIAL SUBCUT ×2 (08:39→13:30)
[2021-05-11] MEDS: SODIUM CHLORIDE 0.9% FLUSH 10 ML IV (08:42)
[2021-05-11] MEDS: COLESTIPOL 1 GM TABLET PO (08:47)
[2021-05-11 08:52] LABS: Parathyroid Hormone, Intact 118 pg/mL (15-65)
--- NOTE | 2021-05-11 09:48 | PC.NURSE ---
Addendum entered by Glo Barker R.N. 05/11/21 16:15: Went over DC meds and instructions with patient, questions answered. Patient aware of changes to her BP meds and verbalized understanding. Patient has follow up appt made for May 15 with her PCP. Patient taken via wc to vehicle driven by family, patient had all belongings, returned home medication pack to patient. Addendum entered by Glo Barker R.N. 05/11/21 16:13: Patient up to bathroom gait steady, walked around room, denies dizziness. Orthostatic BP in worklist and slightly improved. Original Note: Patient alert,oriented, denies chest pain, shortness of breath and nausea. Orthostatics complete see worklist intervention, patient denies dizziness when up to stand and ambulate to bed side commode.
[2021-05-11] MEDS: INSULIN NPH/REG 70-30 100 UNIT/ML 3ML VIAL 20 UNIT SUBCUT (10:32)
--- NOTE | 2021-05-11 10:50 | PT.IPTN ---
Physical Therapy Treatment Note M2 PT-IP Current Condition Start: 05/10/21 12:38 Freq: NEEDED Status: Active Protocol: Document 05/10/21 10:23 AB (Rec: 05/10/21 12:54 AB [id number]) Physical Therapy Current Condition Current Condition Evaluation Date 05/10/21 Treatment Diagnosis chest pain; syncope; difficulty in walking Onset Date 05/09/21 M3 PT-IP Subjective Start: 05/10/21 12:38 Freq: NEEDED Status: Active Protocol: Document 05/11/21 10:11 KS (Rec: 05/11/21 11:44 KS [id number]) Subjective Physical Therapy Visit Type Type Treatment Note Visit Start Time 10:11 Visit Stop Time 10:50 Total Visit Minutes 39 Number of BOILER PLANT OPERATOR Visits 1 Physical Therapy Visit Comments Patient Comments agreeable to do PT M4 PT-IP Mobility and Gait Start: 05/10/21 12:38 Freq: NEEDED Status: Active Protocol: Document 05/11/21 10:11 KS (Rec: 05/11/21 11:44 KS [id number]) PT-Bed Mobility Assessment Supine to Sit Supine to Sit Standby Assistance Sit to Supine Sit to Supine Standby Assistance Scooting Scooting to Edge of Bed Standby Assistance PT-Transfer Assessment Sit to and From Stand Sit to and from Stand Contact Guard Assistance Equipment Transfer Assistive Device Gait Belt,Front Wheeled Walker Orthotic/Prosthetic Devices or Brace: No Transfers Transfer Destination Bed Transfer Technique Pt ambulated w/ FWW Transfer Ability Level of Assist Contact Guard Assistance, Minimal Assistance,1 Person Assistance,Use of Upper Extremities Comments Mobility Comments Pt in bed upon arrival from therapy and supine BP: 173/75. Pt SBA for sup<>sit and scooting EOB and BP sittin/67, pt denied dizziness. Pt then sit<>stand w/ FWW CGA and BP: 124/58. Pt initially denied dizziness but after ~2 min standing w/ [address] pt reported dizziness and requested to sit down. Pt then performed 1x10 bilateral ankle pumps, seated knee extension, seated marching, and glute sets. Pt sit<>stand w/ FWW CGA and again denied dizziness and ambulated ~25 ft in room w/ FWW CGA but then quickly became unsteady and lighheaded and needed Min A, verbal and tactile cues to get to bed to sit down. BP 109/53. Pt CGA for sit<>sup and BP: 171/73. Pt left in bed w/ all needs in reach, alarm on, RN and notified of symptomatic low BP . Gait Assessment Gait Gait Assistance Required: Contact Guard Assist,Minimum Assistance,1 Person Assist Distance (Feet) 30 Assistive Devices Assistive Device Gait Belt,Front Wheeled Walker Gait Deviations General Gait Pattern Decreased Stride Length, Decreased Feet Clearance, Flexed Trunk Factors Limiting Gait Function Factors Limiting Gait Function Decreased Activity Tolerance, Decreased Strength, Incoordination,Poor Balance, Poor Safety Awareness Comments Gait Comments Pt ambulated a total of ~30 ft w/ FWW and CGA and became very dizzy and lightheaded and needed Min A w/ verbal and tactile cues and FWW management to make it to the EOB to sit down safely. Pt ambulated w/ short stride and decreased foot clearance and looked down at floor even after cues because she is fearful of falling. After pt became symptomatic from low BP she became tearful because she is frustrated that she is limited in mobility due to her dizziness. PT-Balance Assessment Sitting Balance and Reactions Static Sitting Balance Ability Good Dynamic Sitting Balance Ability Good Standing Balance and Reactions Static Standing Balance Ability Fair Dynamic Standing Balance Ability Poor Device Used FWW M5 PT-IP Objective Assessments Start: 05/10/21 12:38 Freq: NEEDED Status: Active Protocol: Document 05/10/21 10:23 AB (Rec: 05/10/21 12:54 AB [id number]) Orientation Orientation/Cognition Level of Alertness Alert Orientation Name,Place,Situation Language Function Ability Hard of Hearing Safety Awareness Decreased Safety Awareness Gross Range of Motion Lower Extremity ROM Assessment Within Functional Limits Strength Lower Extremity Strength Hip 4-/5 Knee 4-/5 Coordination Assessment Gross Coordination Gross Coordination WNL Sensation Assessment Sensation Gross Sensation WNL Muscle Tone Muscle Tone WNL Yes M6 PT-IP Treatment Start: 05/10/21 12:38 Freq: NEEDED Status: Active Protocol: Document 05/11/21 10:11 KS (Rec: 05/11/21 11:44 KS [id number]) Physical Therapy Treatment Education Education Provided Safety M7 PT-IP Assessment and Plan Start: 05/10/21 12:38 Freq: NEEDED Status: Active Protocol: Document 05/11/21 10:11 KS (Rec: 05/11/21 11:44 KS [id number]) PT Summary Assessment and Plan Potential Rehabilitation Potential Fair Status of Condition at Evaluation Evolving Summary Impairments Pain,ROM,Strength,Balance, Coordination,Sensation,Tone, Cognition,Bed Mobility, Transfers,Gait,Activity Tolerance Assessment Summary Pt remains limited by symptomatic low BP this treatment. She is SBA for bed mobility, CGA for transfers, but would be unsafe to ambulate alone at this time due to dizziness and lighheadedness when ambulating . She was able to ambulate `30 ft w/ FWW CGA prior to needing to quickly sit down due to unsteadiness from becoming lightheaded. BP in supine 173/75 and in standing 109/53. Discussed HHPT and pt states she has had it before but it was helpful and she would like to have it again. Goals Bed Mobility Goal Independent Transfer Goal Independent,Front Wheeled Walker Gait Goal Independent,Front Wheel Walker Gait Distance 150 Other Goals up/down 2 steps B rails SBA Days to Meet Goals 10 Frequency of Treatment Frequency Of Treatment Once a Day Treatment Plan Physical Therapy Treatment Plan Bed Mobility Training,Transfer Training,Gait Training, Therapeutic Exercise,Balance Retraining,Discharge Planning, Hot or Cold Pack,Neuromuscular Re-ed,Coordination Retraining Precautions Other Precautions orthostatic hypotension Recommendations To Nursing Amount of Assist Needed 1 Person Assist Discharge Recommendations PT Discharge Recommendations Home with 05/11 Assist Available,Home Health,SNF Rehab,SNF vs Acute Rehab Transportation Needs at Discharge Private Vehicle,Wheelchair/ Cabulance
[2021-05-11] MEDS: SODIUM CHLORIDE 0.9% 1,000 ML 1000 ML IV (11:31)
--- NOTE | 2021-05-11 12:43 | DIET.CONS ---
Dietary Consultation Note Admission Date: 05/09/2021 22:50 Assessment: 75y F admitted for orthostatic hypotension referred to nutrition for high A1c (13.3). Pt working c PCP [place] for DM management. Pts A1c 11 in February 2021, PCP adjusted insulin regimen for ease of remembering as pt with some cognitive deficits. Pt now, two months later with A1c 13.3. Pt reports to this RD she is supposed to take 20U basal insulin HS, broke down in tears explaining she is not taking her insulin most of the time because she is not functionally able to. Pt explains broke bilateral wrists in past with no surgical intervention, now they do not work well (my hands are basically useless). Pt cannot take cap off/on pen, and cannot push plunger. Pt does not inject into belly as she has lost significant weight in past with excess skin she won't inject into. She is unable to have dexterity to inject in back of arm. Further, pt had not been checking BGs because she could not get the glucometer packaging open. Ht: 167.64 cm Wt: 65 kg BMI: 22.4 UBW: Last BM: 05/09/21 (05/10/21 00:30) MNA: 11 Karan Score: 21 Diet: 05/09/21 Breakfast Carbohydrate Consistent Diet Diet Modifications: Carbohydrate level: Small (2 CHO) Bedtime snack: Yes Nutrition Percent Meal Consumed 100% 05/11/21 08:37 Percent Meal Consumed 100% 05/10/21 04:00 Labs: RBC 3.73 X10^6/uL (4.0-5.2) L 05/11/21 04:40 Hgb 9.3 g/dL (12.0-16.0) L 05/11/21 04:40 Hct 28.2 % (36-46) L 05/11/21 04:40 Creatinine 1.79 mg/dL (0.52-1.04) H 05/11/21 04:40 Hemoglobin A1c 13.3 % (4.0-6.0) H 05/10/21 04:50 NT-Pro-B Natriuret Pep 2500 pg/mL (<450) H 05/10/21 04:50 Nutrition Diagnosis: abnormal nutrition related laboratory values (A1c) r/t difficulty with medication management aeb A1c 13.3, pt functionally unable to use glucometer and insulin pen secondary to poor hand dexterity, pt reports missing insulin dosing unless receiving help from others which she states happens infrequently. Interventions: 1. Recc increasing help in home for medication administration. Monitoring/Evaluations: DM Educator f/u Saturday Electronically Signed by: Kayli Sierra 05/11/21 12:43 Clinical Dietitian [address] [address]
--- NOTE | 2021-05-11 13:50 | CM.IDA ---
Addendum entered by CRISTI Wilson 05/11/21 14:05: ADD: Both dtr Vivian and son in law Borden work outside the home but Son in checks on patient on his lunch breaks and before/after work. 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 Patient complains of dizziness and light headedness per DIRECTOR NURSES' REGISTRY Meri. Met w/patient, introduced role. Patient is eager to return home. Patient lives w/ dtr Vivian, son in law Borden and grand dtr (currently in ). Patient does not have to travel far to the from her bedroom and says she has a walker w/a seat on it for rest breaks or if she were to feel dizzy. This MILL LABOR SUPERVISOR does witness patient's short term memory loss, she cannot remember Kayli, our Cut [employer] Tender Glass, stopping by a few minutes ago and cannot recall details of this day or events leading up to this stay. Reviewed HH options and patient is agreeable to HH services, no agency preference. Requested that COLETTE Bagley complete a HH referral and she kindly agreed. Placed call to son in law Borden, per patient's request. updated w/above. Michi plans to pick patient up after 1500 today. Updated KENYETTA Cody Plan: DC home w/family and HH services, via family pov CRISTI Henriquez Discharge Planning/Care Management CM Discharge Assessment Start: 05/10/21 16:07 Freq: Status: Active Protocol: Document 05/10/21 16:07 KJS (Rec: 05/10/21 16:09 KJS [id number]) Discharge Planning Assessment Assigned Construction Technician CRISTI Shaw Contact Information Mago Giang # [phone] Advance Directives? Yes Advance Directives on File No History Provided By Medical Record Prior Living Arrangements House Household Members family,children Independent with ADL's Yes Is patient alert and oriented? Yes Comment Patient uses devices: Cane, FWW or Wheel chair as needed Discharge Plan Home Transportation Arrangement Family to provide transportaion either daughter Mago or son-in-law Keon Referrals Initiated None needed Additional Comment No d/c needs identified by nursing or provider. Patient d /c'd prior to inperson assessment. Review Status In Process Next Review Type Continued Stay Review
--- NOTE | 2021-05-11 14:09 | CM.DPNOTE ---
Per Savannah, faxed referral packet to [facility] and received fax conf. Will fax dc summary when avail. Yudi Gomez CM Asst.
--- NOTE | 2021-05-11 17:20 | P.DS_ITS ---
History of Present Illness History of Present Illness Chief complaint: PASSED OUT TOOK 2 NITROGLYCERIN Narrative: Per Marleen Tavera: Frances Foley is a 75 year old female has a history of CHF, hypertension, GERD, hyperlipidemia, diabetes type 2, and AR without stent placement in 2019, who presented to the ED following a syncope after taking oral & topical nitro at home for chest pain.? Her chest pain left-sided that radiated to her left elbow and left scapula.? ? Patient sees [facility] Dr. Lao.?Patients chets pain had resolved prior to arrival in the ED. Patient denies Chest pain, SOB, Cough, URI s/s, abd pain, nausea, vomiting, diarrhea, numbness, tingling, weakness, recent illness, injury, or trauma. Patient's vitals are stable upon admit temp 97.6?, BP 173/81, HR 104, RR 18, O2 saturation 100% on room air.? HGB 11.8, HCT 35.2, hyponatremia sodium 129, Cl 94, creatinine 1.69, glucose 458, GFR 29.5.? Troponin was within normal limits 0.019, lipase 320, alk-phos 174, patient's chest x-ray was negative for acute cardiopulmonary process. Heart Score:6.? EKG sinus rhythm with a rate of 87 ST depression in the inferior lateral leads change from 10/31/2020 EKG[address] [facility]. Niharika Santoyo at [facility] personally reviewed the patient's EKGs and determine patient did not require transfer to [facility], and suitable for admit for observation with stress test and echo tomorrow. Patient admitted for Chest pain. Discharge Providers Provider Date of admission: 05/09/21 22:50 Discharge Date: 05/11/21 Primary care physician: Oliver Ibrahim MD Consults: 05/09/21 23:00 Consult to Dietitian, Adult Routine Comment: Reason For Exam: DM, under weight BMI 22.6 05/10/21 07:49 Consult to Physical Therapy Evaluate & Treat Comment: Physician Instructions: Evaluate and Treat 05/10/21 10:04 Consult to Physical Therapy Evaluate & Treat Comment: Physician Instructions: Evaluate and Treat 05/11/21 13:42 Consult to Home Health Routine Comment: Reason For Exam: Home Health Upon DC Discharge provider: Troy Dietz MD Summary Hospital Course Discharge Diagnosis: 1. Orthostatic hypotension, syncope 2. Chest pain, chronic 3. Hyponatremia, chronic 4. Type 2 Diabetes, on insulin 5. ZULEIMA on CKD stage 3 6. Chronic cognitive impairment 7. History of falls 8. CHF with reduced EF 9. Hypertension 10. Hyperlipidemia 11. GERD Hospital Course: Ms. Foley was admitted after syncope. She has intermittent chest pain at home, has followed with Dr. Lao. She took nitro and then had syncope. She was notably orthostatic in the hospital. She was given IV fluids and on day of discharge felt much improved and was able to get up and ambulate without dizziness. She wanted to go home. She had troponins trended that were negative. On discharge she is recommended to continue to hold her torsemide until following up with her PCP or electrical and instrumentation manager and also to decrease her lisinopril slightly to 5mg daily. She continues to have hypertension in the hospital, so these will likely need to have further titration. Her ZULEIMA improved with fluids. Exam Vital Signs (past 8 hours): - 05/11/21 09:47 05/11/21 11:57 05/11/21 12:24 Temperature 97.9 F Pulse Rate 66 Pulse Rate [Orthostatic Lying] Pulse Rate [Orthostatic Sitting] 92 H Pulse Rate [Orthostatic Standing] 52 L Respiratory Rate 16 Blood Pressure 194/80 H Blood Pressure [Orthostatic Lying] 190/81 H Blood Pressure [Orthostatic Sitting] 173/77 H Blood Pressure [Orthostatic Standing] 144/64 H Pulse Oximetry 100 100 05/11/21 13:30 Temperature Pulse Rate Pulse Rate [Orthostatic Lying] 69 Pulse Rate [Orthostatic Sitting] 72 Pulse Rate [Orthostatic Standing] 86 Respiratory Rate Blood Pressure Blood Pressure [Orthostatic Lying] 183/76 H Blood Pressure [Orthostatic Sitting] 176/76 H Blood Pressure [Orthostatic Standing] 148/67 H Pulse Oximetry Oxygen Delivery Method Room Air Oxygen Flow Rate 0 Narrative Exam Narrative: GEN: no acute distress CV: regular rate and rhythm, no murmurs PULM: clear bilaterally ABD: soft, nontender, nondistended, no organomegaly EXT: warm and well perfused with no edema Objective Labs Result Diagrams: 05/11/21 04:40 05/11/21 04:40 Labs: Laboratory Results - last 24 hr 05/10/21 05/11/21 05/11/21 04:50 04:40 04:40 WBC 6.8 RBC 3.73 L Hgb 9.3 L Hct 28.2 L MCV 75.6 L MCH 25.0 L MCHC 33.0 RDW 15.1 H Plt Count 233 Sodium 136 L Potassium 4.0 Chloride 105 Carbon Dioxide 29 BUN 17 Creatinine 1.79 H Estimated GFR 27.6 L BUN/Creatinine Ratio 9.5 Glucose 113 H D Calcium 8.2 L Total Bilirubin 0.2 AST 20 ALT 10 Alkaline Phosphatase 111 Troponin I Total Protein 5.3 L Albumin 2.6 L Globulin 2.7 Albumin/Globulin Ratio 1.0 PTH Intact 118 H Calcium (PTH Intact) 8.0 L PTH Intact Intraop Comment 05/11/21 04:40 WBC RBC Hgb Hct MCV MCH MCHC RDW Plt Count Sodium Potassium Chloride Carbon Dioxide BUN Creatinine Estimated GFR BUN/Creatinine Ratio Glucose Calcium Total Bilirubin AST ALT Alkaline Phosphatase Troponin I 0.018 Total Protein Albumin Globulin Albumin/Globulin Ratio PTH Intact Calcium (PTH Intact) PTH Intact Intraop [facility] Medical History (Updated 05/10/21 @ 03:33 by ELIER Hernandez) Acute pancreatitis CHF (congestive heart failure) Diabetes mellitus type 2 in obese Essential hypertension Myocardial infarction Plaque psoriasis Surgical History History of appendectomy History of bilateral hip replacements History of cholecystectomy History of left knee surgery History of surgery on right wrist Family History Mother Congestive heart failure Brother Congestive heart failure Social History household members: family and children Smoking Status: Never smoker alcohol intake: never Discharge Plan Discharge Plan Patient Disposition: Home Health Service Provider Discharge Comment: Ms. Foley was admitted after passing out. She had orthostatic hypotension, which means that her blood pressure dropped too much when she stood up which caused her dizziness. This improved with stopping torsemide and giving IV fluids. She also should take lisinopril only once a day, instead of twice a day. She should quickly follow up with her PCP to make sure these medication changes are helping. At time of discharge she got up and walked around and was no longer feeling dizzy and felt ready to go home. Discharge orders & Medications Prescriptions: Continued (DME) blood glucose test strips See Rx Instructions .Route .MEDSUPPLY Qty: 100 3RF Rx Instructions: Use to test blood sugar once a day (DME) blood glucose testing lancet See Rx Instructions .Route .MEDSUPPLY Qty: 100 3RF Rx Instructions: Use to test blood sugar once a day. (DME) blood-glucose meter [Blood Glucose Monitoring] Kit See Rx Instructions .Route Qty: 1 0RF Rx Instructions: Test blood sugar once a day alcohol swabs [Alcohol Wipes] Pads, Medicated 1 pad topical DAILY Qty: 100 3RF Rx Instructions: Use to clean skin in order to administer injection and check bs. insulin asp prt-insulin aspart [Novolog Mix 70-30FlexPen U-100] 100 unit/mL (70-30) insulin pen 20 unit SUBCUT BID Qty: 3 0RF Rx Instructions: 2O UNITS EACH MORNING , 1O UNITS EACH EVENING hydromorphone 2 mg tablet 2 mg PO BID PRN (Reason: Pain, Severe (7-10)) Qty: 60 0RF Rx Instructions: EXEMPT atorvastatin 40 mg tablet 40 mg PO BEDTIME Qty: 90 3RF cholecalciferol (vitamin D3) 25 mcg (1,000 unit) tablet 25 mcg PO BID Qty: 180 3RF clopidogrel 75 mg tablet 75 mg PO DAILY Qty: 90 3RF colestipol 1 gram tablet 1 g PO BID Qty: 180 3RF docusate sodium [DOK] 100 mg capsule 100 mg PO DAILY Qty: 90 3RF (DME) insulin pen needles See Rx Instructions .Route .MEDSUPPLY Qty: 100 3RF Rx Instructions: Use pen needle to inject insulin glargine once daily. sertraline 50 mg tablet 50 mg PO DAILY Qty: 90 3RF famotidine 40 mg tablet 40 mg PO DAILY Qty: 90 3RF nitroglycerin 0.2 mg/hr patch 24 hour 1 patch transdermal DAILY Qty: 30 11RF Rx Instructions: allow nitrate-free interval of approx. 10-12 hrs per 24-hour period metoprolol tartrate 50 mg tablet 50 mg PO BID Qty: 180 3RF sennosides [senna] 8.6 mg Tablet 17.2 mg PO BEDTIME Qty: 10 0RF Changed lisinopril 5 mg tablet 5 mg PO DAILY Qty: 90 3RF Discontinued torsemide 20 mg tablet 20 mg PO DAILY Qty: 90 1RF Follow up/Referrals: Oliver Ibrahim MD [Primary Care Provider] - 05/15/21 3:00 pm (appt:05/15 @ 3:[address] Ibrahim check in at 2:45 ) Diet/Activity/Treatments Diet: Regular Visit Report/Discharge Packet Instructions: DI for Orthostatic Hypotension Discharge Data Primary Care Provider: Oliver Ibrahim Attending Provider: Marleen Tavera VTE Deep Vein Thrombosis/Pulmonary Embolism Present on Admission: No
== END 2021-05-11 16:17 | disposition home health service (06) ==
LOC: ED 21:01 → AC 23:18 → ICU 05-10 07:20 → AC 05-10 13:16 → ICU 05-10 13:16
PROVIDERS: Internal Medicine; Admitting Provider Nurse Practitioner Family; Emergency Provider Emergency Medicine; PCP Student in an Organized Health Care Education/Training Program; Referring Provider Emergency Medicine; Visit Provider Nurse Practitioner Family
DX: I95.1 Orthostatic hypotension (principal); R07.9 Chest pain, unspecified; E87.1 Hypo-osmolality and hyponatremia; N17.9 Acute kidney failure, unspecified; I13.0 Hypertensive heart and chronic kidney disease with heart failure and stage 1 through stage 4 chronic kidney disease, or unspecified chronic kidney disease; I50.22 Chronic systolic (congestive) heart failure; N18.30 Chronic kidney disease, stage 3 unspecified; E11.22 Type 2 diabetes mellitus with diabetic chronic kidney disease; G31.84 Mild cognitive impairment of uncertain or unknown etiology; E78.5 Hyperlipidemia, unspecified; K21.9 Gastro-esophageal reflux disease without esophagitis; I25.2 Old myocardial infarction; Z79.4 Long term (current) use of insulin; Z91.81 History of falling; Z20.822 Contact with and (suspected) exposure to COVID-19
CPT/HCPCS: 36415; 71045; 80053; 80061; 81003; 82310; 82550; 82962; 83036; 83690; 83735; 83880; 83970; 84443; 84484; 85025; 85027; 87635; 93005; 93306; 94760; 96361; 96372; 96374; 96375; 97110; 97116; 97162; 97530; 99284; 99285; C9803; G0378; A9270; J1650; J1815; J2270; J2405

== ENCOUNTER → 2021-05-29 14:04 | Outpatient (CLI) | payer MEDICARE, OTHER, SELFPAY ==
[2021-05-10 00:30] VITALS: BMI 22.4
--- NOTE | 2021-05-29 14:06 | DI.RAD.S_ITS ---
PROCEDURE: XR WRIST RT MIN 3V INDICATIONS: Re-eval prior fx. Ongoing pain in location of prior injury TECHNIQUE: 3 views of the wrist were acquired. COMPARISON: SOFYA Gorman, XR WRIST 3+ VIEWS RIGHT, 12/28/2020, 8:37. FINDINGS: Bones: Chronic, comminuted, intra-articular distal radius fracture not significantly changed compared to August 27, 2020. Mildly displaced, chronic ulnar styloid process fracture not Soft tissues: No suspicious soft tissue calcifications. IMPRESSION: Chronic, comminuted, intra-articular distal radius fracture and ulnar styloid process fracture stable in alignment compared to December 28, 2020. Dictated by: Britney Victor MD, PhD on 05/29/2021 at 16:42 Approved by: Britney Victor MD, PhD on 05/29/2021 at 16:43
== END ==
PROVIDERS: PCP Student in an Organized Health Care Education/Training Program; Referring Provider Student in an Organized Health Care Education/Training Program; Visit Provider Student in an Organized Health Care Education/Training Program
DX: S52.571A Other intraarticular fracture of lower end of right radius, initial encounter for closed fracture; S52.611A Displaced fracture of right ulna styloid process, initial encounter for closed fracture; X58.XXXA Exposure to other specified factors, initial encounter
CPT/HCPCS: 73110

== ENCOUNTER → 2021-07-06 07:42 | Outpatient (CLI) | payer MEDICARE, OTHER, SELFPAY ==
[2021-05-10 00:30] VITALS: BMI 22.4
[2021-07-06 08:38] LABS: COVID19 -Nasal RAPID Negative (Negative)
--- NOTE | 2021-07-06 11:54 | PM.TREADMILL ---
Cardiac Stress Test Report Referral & Results Indication: ischemic cardiomyopathy Rest ECG: sinus rhythm with nonspecific st depressions Procedure Note: masood scan stress test Impression: after masood inj had minimal dyspnea, nausea, and headache. no chest discomfort. baseline ecg is sinus rhythm with nonspecific st depressions; no significant ST changes after masood inj compared to baseline. caffeine made patient's symptoms better. no aminoph needed. mibi scan pending. professor of religion to review. Aravind STERN. Please note: Actual ECG tracings can be found in the PACS system.
--- NOTE | 2021-07-06 18:38 | DI.NM.S_ITS ---
DATE OF SERVICE: 07/06/2021 PROCEDURE: Pharmacological perfusion study. INDICATION: Chest pain with underlying coronary artery disease, hypertension, hyperlipidemia, and diabetes mellitus. RADIOPHARMACEUTICAL: 26.3 millicurie technetium-99m Myoview IV was injected at stress and 11.0 millicurie technetium-99m Myoview IV was injected at rest. CARDIAC STRESS: The patient underwent IV Lexiscan perfusion study under the supervision of an attending staff, as per standard protocol. She remained hemodynamically stable. Baseline blood pressure 158/80 and heart rate 83 beats per minute. Baseline rhythm was sinus with some nonspecific ST-T changes. During Lexiscan, there were no new significant inducible ischemic changes or arrhythmias. The patient had minimal dyspnea, headache and nausea, which got better with caffeine. RAW DATA: There is increased subdiaphragmatic activity. GATED STUDY: Stress LV ejection fraction 47 and resting LV ejection fraction of 46 percent with mid to distal anterior wall and a anteroapical hypokinesis. Resting end-diastolic volume 153, suggestive of dilated left ventricle. TID ratio 1.16, which is within normal limits. Lung/heart ratio 0.40, which is within normal limits. MYOCARDIAL PERFUSION SCAN: Stress supine and resting supine images were compared to each other. There are no stress prone images. There is a moderate size, moderate to severely decreased predominantly fixed perfusion defect involving the mid to distal anterior wall extending into the anteroapex, as well as distal anteroseptum and distal lateral wall with very mild marisela-infarct ischemia. CONCLUSION: This is an abnormal myocardial perfusion study consistent with moderate size infarction of mid to distal anterior wall extending into the anteroapex, distal anteroseptum and distal anterolateral wall with mild marisela- infarct ischemia. The patient had a perfusion study 05/25/2020 and at that time, also, the patient had a predominantly fixed defect without any significant ischemic burden. At that time, resting end-diastolic volume was 139 mL and today 153 mL. Resting left ventricular ejection fraction 41 percent and stress left ventricular ejection fraction 32 percent. In this study, resting left ventricular ejection fraction 46 and stress left ventricular ejection fraction 47 percent. Frances Foley - Juan/dilcia doc#: [id number]/job#: [id number] dd: 07/06/2021 17:43:00 dt: 07/06/2021 18:13:00 DICTATING MD/COPIES TO: Jamar Ortiz MD COPIES MNE: RIKY;
== END ==
PROVIDERS: PCP Student in an Organized Health Care Education/Training Program; Referring Provider Internal Medicine Cardiovascular Disease; Visit Provider Internal Medicine Cardiovascular Disease
DX: I25.5 Ischemic cardiomyopathy (principal); R07.9 Chest pain, unspecified; I25.10 Atherosclerotic heart disease of native coronary artery without angina pectoris; E11.69 Type 2 diabetes mellitus with other specified complication; I10 Essential (primary) hypertension; E78.5 Hyperlipidemia, unspecified; Z20.822 Contact with and (suspected) exposure to COVID-19
CPT/HCPCS: 78452; 87635; 93017; A9502; J2785

== ENCOUNTER 2021-07-19 23:32 | Emergency (ER) | payer MEDICARE, OTHER, SELFPAY ==
[2021-05-10 00:30] VITALS: BMI 22.4
[2021-07-19 23:48] VITALS: BP 123/73; PULSE 81; RESP 22; TEMP 36.6; O2SAT 97; BMI 26.3
--- NOTE | 2021-07-20 00:23 | DI.RAD.S_ITS ---
PROCEDURE: XR LUMBAR SPINE 2-3V INDICATIONS: Low back pain TECHNIQUE: 3 views of the lumbar spine were acquired. COMPARISON: [facility], , XR LUMBAR SPINE 2-3V, 03/03/2020, 13:36. FINDINGS: Bones: 5 [id number] vertebrae are present. There is minimal retrolisthesis at L1-L2, L2-L3, L3-L4, and L5-S1. There is a mild superior endplate compression deformity of the L1 vertebral body of indeterminate acuity but new compared to the prior study. No retropulsed fragments identified. There is mild multilevel degenerative disc disease throughout the lumbar spine. Mild facet arthropathy also demonstrated in the lower lumbar spine. Soft tissues: Overlying bowel gas pattern is normal. There are diffuse vascular calcifications. IMPRESSION: 1. Mild superior endplate compression deformity of the L1 vertebral body of indeterminate acuity but new compared to the prior study. No retropulsed bony fragments identified. 2. Mild multilevel degenerative disc disease throughout the lumbar spine and mild facet arthropathy in the lower lumbar spine. Dictated by: Eldon Cates M.D. on 07/20/2021 at 0:46 Approved by: Eldon Cates M.D. on 07/20/2021 at 0:58
--- NOTE | 2021-07-20 00:23 | ED.BACK ---
HPI - Back Pain/Injury General Chief Complaint: Back Pain/Injury Stated Complaint: low back pain/abd pain x2 days Time Seen by Provider: 07/20/21 00:17 Source: patient and family History of Present Illness HPI Narrative: The patient presents with low back pain for 2 days. Pain does not radiate to her legs. She has no numbness or weakness in her legs. She denies incontinence. She apparently has experienced frequent falls, none recent and associated with these current pain. She is taking hydromorphone, recently prescribed for bilateral wrist pain. She has a history of bilateral hip replacement and left knee replacement. She sees a a shank paperer for CHF. She is under nephrology care for CKD. She has no history of kidney infection, she denies abdominal pain. She has no dysuria or hematuria. Related Data Home Medications Medication Instructions Recorded Confirmed isosorbide mononitrate 60 mg 60 mg PO DAILY 06/05/21 tablet,extended release 24 hr Previous Rx's Medication Instructions Recorded sennosides 8.6 mg tablet (senna) 17.2 mg PO BEDTIME #10 tab 10/20/20 atorvastatin 40 mg tablet 40 mg PO BEDTIME #90 tab 11/28/20 cholecalciferol (vitamin D3) 25 25 mcg PO BID #180 tab 11/28/20 mcg (1,000 unit) tablet clopidogrel 75 mg tablet 75 mg PO DAILY #90 tab 11/28/20 colestipol 1 gram tablet 1 g PO BID #180 tab 11/28/20 docusate sodium 100 mg capsule 100 mg PO DAILY #90 cap 11/28/20 (DOK) famotidine 40 mg tablet 40 mg PO DAILY #90 tab 11/28/20 hydromorphone 2 mg tablet 2 mg PO BID PRN #60 tab 11/28/20 sertraline 50 mg tablet 50 mg PO DAILY #90 tab 11/28/20 metoprolol tartrate 50 mg tablet 50 mg PO BID #180 tab 11/29/20 nitroglycerin 0.2 mg/hr 1 patch TRANSDERMAL DAILY #30 ea 11/29/20 transdermal 24 hour patch lisinopril 5 mg tablet 5 mg PO DAILY #90 tab 05/11/21 glipizide 5 mg tablet, extended 5 mg PO DAILY #90 tab 06/21/21 release 24 hr linagliptin 5 mg tablet (Tradjenta) 5 mg PO DAILY #90 tab 06/21/21 sulfamethoxazole 800 1 tab PO BID 7 Days #14 tab 07/20/21 mg-trimethoprim 160 mg tablet tramadol 50 mg tablet 50 mg PO Q6-8H PRN #20 tab 07/20/21 Allergies Allergy/AdvReac Type Severity Reaction Status Date / Time dimenhydrinate Allergy Verified 05/29/21 13:17 [From Dramamine] diphenhydramine AdvReac Verified 05/29/21 13:17 [From Benadryl] hydrocodone AdvReac Verified 05/29/21 13:17 Review of Systems Constitutional Constitutional: Denies body ache(s), Denies fever(s), Reports frequent falls and Denies headache(s) ENT Ears, Nose, Mouth, and Throat: Denies headache(s) and Denies sore throat Cardiovascular Cardiovascular: Denies chest pain, Denies syncope, Denies rapid heart rate and Denies dyspnea Respiratory Respiratory: Denies cough and Denies dyspnea Gastrointestinal Gastrointestinal: Denies abdominal pain, Denies nausea and Denies vomiting Genitourinary Genitourinary: Denies dysuria and Denies flank pain Musculoskeletal Musculoskeletal: Reports as per HPI, Reports back pain, Denies muscle weakness and Denies numbness Integumentary/Breasts Skin/Breast: Denies rash Neurologic Neurologic: Denies confusion, Denies syncope, Reports frequent falls, Denies headache(s) and Denies numbness Psychiatric Psychiatric: Denies anxiety, Denies confusion and Denies depression Hematologic/Lymphatic On Anticoagulants: No Patient History Medical History Acute pancreatitis CHF (congestive heart failure) Cognitive impairment Major depression in partial remission Myocardial infarction Osteoarthritis Plaque psoriasis Type 2 diabetes mellitus Surgical History History of appendectomy History of bilateral hip replacements History of cholecystectomy History of left knee surgery History of surgery on right wrist Family History Mother Congestive heart failure Brother Congestive heart failure Social History household members: family and children Smoking Status: Never smoker alcohol intake: never Smoking Status: Never smoker Substance Use Type: does not use Exam Initial Vital Signs Initial Vital Signs: Vital Signs Temperature 97.8 F 07/19/21 23:48 Pulse Rate 81 07/19/21 23:48 Respiratory Rate 22 07/19/21 23:48 Blood Pressure 123/73 07/19/21 23:48 Pulse Oximetry 97 07/19/21 23:48 Const General: cooperative, healthy appearing, well groomed and No acute distress Other: Poor historian. Her daughter assist with the medical history. [facility] Head: normocephalic and atraumatic Neck Neck: No tender Chest Chest: normal inspection of the chest Resp Effort & Inspection: normal respiratory effort Auscultation: clear to auscultation bilaterally Cardio Rate: regular rate Rhythm: regular rhythm Heart Sounds: S1 normal, S2 normal and no murmurs GI Inspection: normal to inspection Palpation: soft and No tender Auscultation: normal bowel sounds Back/Spine/Pelvis Back: normal to inspection, back tenderness (Tenderness at the L5-S1 level) and No CVA tenderness Sacroiliac Joints: nontender Skin General: no rashes or lesions noted Neuro General: patient alert, patient awake and no focal motor deficits Extrem General: normal to inspection, full ROM, no pedal edema and no calf tenderness Other: Straight leg raise is normal bilaterally. Psych Appearance: grossly normal Course Course Course Narrative: The patient has diffuse osteoarthritis in her lumbar spine with an L1 compression fracture. UTI is discovered. She is discharged on Septra DS for the UTI. I recommend a combination tramadol Tylenol for the back pain. She should follow up with her PCM. She may benefit from physical therapy. Orders Ordered: ED Orders 07/20/21 00:05 Urine Culture Stat Urine Microscopic Stat 07/20/21 00:23 XR lumbar spine 2-3V Stat Vital Signs Vital signs: Vital Signs - 8 hr 07/19/21 23:48 Temperature 97.8 F Pulse Rate 81 Respiratory Rate 22 Blood Pressure 123/73 Pulse Oximetry 97 MDM - Back Pain/Injury Lab Data Labs: Lab Results 07/20/21 Range/Units 00:05 Urine RBC 1-5/hpf (0-5/HPF) Urine WBC 30-100/hpf H (0-5/HPF) Ur Squamous Epith Cells 5-10 /hpf H (0-5/HPF) Ur Transition Epith Cell 0-1/hpf (0-5/HPF) Ur Renal Epithelial Cell 0-1/hpf (0-1/HPF) Urine Bacteria Many (>30) H (None) Ur Culture Indicated? Culture not indicate Urine Dip Bedside Urine Glucose Negative Bedside Urine Bilirubin - Negative Bedside Urine Ketone - Negative Urine Specific [place] 1.020 Bedside Urine Occult Blood +/- Bedside Urine pH 6.0 Bedside Urine Protein +++ 300 Bedside Urine Urobilinogen - Negative Bedside Urine Nitrite - Negative Bedside Urine Leukocytes ++ 125 Esterase Imaging Data Lumbar x-ray: Radiologist's Impression: 1. Mild superior endplate compression deformity of the L1 vertebral body of indeterminate acuity but new compared to the prior study.? No retropulsed bony fragments identified. ? 2. Mild multilevel degenerative disc disease throughout the lumbar spine and mild facet arthropathy in the lower lumbar spine.? Discharge Plan Departure Patient Disposition: Home Clinical Impression: Lumbar and sacral osteoarthritis, Urinary tract infection Instructions: DI for Low Back Pain, DI for Urinary Tract Infection (UTI) Activity Restrictions/Additional Instructions: Tylenol 2 tablets every 4 hours as needed for back pain. Tramadol every 6 hours as needed for added pain control. Septra DS 1 tablet 2 times daily for urinary tract infection. Be sure you are drinking plenty of fluids and remain well hydrated. Recheck with your doctor in about 10 days. Return here as needed. Prescriptions: New sulfamethoxazole-trimethoprim 800-160 mg tablet 1 tab PO BID 7 Days Qty: 14 0RF tramadol 50 mg tablet 50 mg PO Q6-8H PRN (Reason: pain) Qty: 20 0RF No Action isosorbide mononitrate 60 mg tablet extended release 24 hr 60 mg PO DAILY 0RF glipizide 5 mg tablet extended release 24 hr 5 mg PO DAILY Qty: 90 0RF Tradjenta 5 mg tablet 5 mg PO DAILY Qty: 90 0RF hydromorphone 2 mg tablet 2 mg PO BID PRN (Reason: Pain, Severe (7-10)) Qty: 60 0RF Rx Instructions: EXEMPT atorvastatin 40 mg tablet 40 mg PO BEDTIME Qty: 90 3RF cholecalciferol (vitamin D3) 25 mcg (1,000 unit) tablet 25 mcg PO BID Qty: 180 3RF clopidogrel 75 mg tablet 75 mg PO DAILY Qty: 90 3RF colestipol 1 gram tablet 1 g PO BID Qty: 180 3RF docusate sodium [DOK] 100 mg capsule 100 mg PO DAILY Qty: 90 3RF sertraline 50 mg tablet 50 mg PO DAILY Qty: 90 3RF famotidine 40 mg tablet 40 mg PO DAILY Qty: 90 3RF nitroglycerin 0.2 mg/hr patch 24 hour 1 patch transdermal DAILY Qty: 30 11RF Rx Instructions: allow nitrate-free interval of approx. 10-12 hrs per 24-hour period metoprolol tartrate 50 mg tablet 50 mg PO BID Qty: 180 3RF sennosides [senna] 8.6 mg Tablet 17.2 mg PO BEDTIME Qty: 10 0RF lisinopril 5 mg tablet 5 mg PO DAILY Qty: 90 3RF Referrals: Oliver Ibrahim MD [Primary Care Provider] -
[2021-07-20 00:33] LABS: Bacteria Urine Many (>30); RBC Urine 1-5/HPF (0-5/HPF); Renal Epithelial Cells Urine 0-1/HPF (0-1/HPF); Squamous Epithelial Cell Urine 5-10 /HPF (0-5/HPF); WBC Urine 30-100/HPF (0-5/HPF)
[2021-07-20 00:34] LABS: Transitional Epi Cells Urine 0-1/HPF (0-5/HPF)
[2021-07-20] MEDS: TRAMADOL 50 MG PREPACK 1 BOTTLE MISC (01:44)
[2021-07-20] MEDS: TRIMETH/SULFA 160/800 (DS) TABLET 1 TAB PO (01:45)
[2021-07-20] MEDS: ACETAMINOPHEN 325 MG TABLET 650 MG PO (01:45)
[2021-07-20 01:56] VITALS: BP 120/71; PULSE 76; RESP 20; O2SAT 28
== END 2021-07-20 01:57 | disposition home or self-care (01) ==
PROVIDERS: Emergency Provider Emergency Medicine; PCP Student in an Organized Health Care Education/Training Program
DX: M47.816 Spondylosis without myelopathy or radiculopathy, lumbar region (principal); M47.818 Spondylosis without myelopathy or radiculopathy, sacral and sacrococcygeal region; N39.0 Urinary tract infection, site not specified; Z88.5 Allergy status to narcotic agent
CPT/HCPCS: 72100; 81003; 81015; 87077; 87086; 87186; 99283; 99284

== ENCOUNTER → 2021-07-25 10:13 | Outpatient (CLI) | payer MEDICARE, OTHER, SELFPAY ==
[2021-05-10 00:30] VITALS: BMI 22.4
[2021-07-25 12:14] LABS: BUN Creatinine Ratio 7.2 (6-22); Blood Urea Nitrogen 17 mg/dL (7-17); Calcium 8.4 mg/dL (8.4-10.2); Carbon Dioxide 20 mmol/L (22-32); Chloride 105 mmol/L (98-107); Estimated Glomerular Filt Rate 20.8 mL/min (>60); Glucose 102 mg/dL (80-110); HEMOLYSIS < 15 (0-50); Phosphorous 3.6 mg/dL (2.8-4.1); Potassium 6.2 mmol/L (3.4-5.1); Sodium 135 mmol/L (137-145); Uric Acid 6.5 mg/dL (2.5-6.2)
[2021-07-25 12:21] LABS: Vitamin D 25 Hydroxy (D3) 37.2 ng/mL (30.0-100.0)
[2021-07-26 05:52] LABS: Creatinine Urine Random 13.8 mg/dL
[2021-07-26 06:33] LABS: Microalbumi Creatinin Ratio Ur 2086.9 ug/mg CR (<30); Microalbumin Urine Random 28.8 mg/dL (0-1.6)
[2021-07-26 08:51] LABS: Parathyroid Hormone Int 124 pg/mL (15-65)
== END ==
PROVIDERS: PCP Student in an Organized Health Care Education/Training Program; Referring Provider Internal Medicine Nephrology; Visit Provider Internal Medicine Nephrology
DX: N18.4 Chronic kidney disease, stage 4 (severe) (principal)
CPT/HCPCS: 80048; 82306; 83735; 83970; 84100; 84550

== ENCOUNTER 2021-07-25 19:32 | Inpatient (IN) | payer MEDICARE, OTHER, SELFPAY ==
[2021-05-10 00:30] VITALS: BMI 22.4
[2021-07-25] VITALS (19 sets, daily range): BP systolic 128–140; BP diastolic 60–72; PULSE 73–84; RESP 16–33; TEMP 36.8; O2SAT 97–100
--- NOTE | 2021-07-25 19:45 | DI.RAD.S_ITS ---
PROCEDURE: XR CHEST 1V INDICATIONS: shortness of breath TECHNIQUE: One view of the chest was acquired. COMPARISON: [facility], [place], XR CHEST 1V, 05/09/2021, 19:49. FINDINGS: Surgical changes and devices: None. Lungs and pleura: Diffuse interstitial prominence. Mild loss of vascular distinctness. Small bilateral pleural effusions larger on the left. Mediastinum: Mediastinal contours appear normal. Heart size is borderline enlarged. Bones and chest wall: No suspicious bony lesions. Overlying soft tissues appear unremarkable. IMPRESSION: Borderline cardiomegaly with findings suggestive of pulmonary edema/CHF. A concurrent infectious or inflammatory process not excluded if clinically appropriate. No focal consolidation seen. Dictated by: Jeancarlos Strange M.D. on 07/25/2021 at 20:57 Approved by: Jeancarlos Strange M.D. on 07/25/2021 at 20:58
[2021-07-25 20:11] LABS: Add Manual Diff / Slide Review NO; Basophils Absolute Auto 0 /uL (0-100); Basophils Percent Auto 0.4 % (0-2); Eosinophils Absolute Auto 100 /uL (0-450); Hematocrit 26.3 % (36-46); Hemoglobin 8.6 g/dL (12.0-16.0); Lymphocytes Absolute Auto 800 /uL (1100-4500); Lymphocytes Percent Auto 10.9 % (25-40); Mean Corpuscular HGB Conc 32.6 % (30-36); Mean Corpuscular Hemoglobin 24.4 PG (26-34); Mean Corpuscular Volume 74.9 fL (80-100); Monocytes Absolute Auto 700 /uL (0-900); Monocytes Percent Auto 9.3 % (3-14); Neutrophils Absolute Auto 5500 /uL (1500-7000); Neutrophils Percent Auto 77.4 % (50-75); Platelet Count 394 X10^3/uL (150-400); Red Blood Cell Count 3.51 X10^6/uL (4.0-5.2); Red Cell Distribution Width 15.7 % (11.6-14.8); White Blood Cell Count 7.1 X10^3/uL (4.5-11.0)
[2021-07-25 20:21] LABS: Creatine Kinase 73 U/L (30-135); Lactate (Lactic Acid) 1.6 mmol/L (0.7-2.1)
[2021-07-25 20:23] LABS: Alanine Aminotransferase 12 IU/L (<35); Albumin 3.3 g/dL (3.5-5.0); Alkaline Phosphatase 126 U/L (38-126); Aspartate Aminotransferase 30 IU/L (14-36); BUN Creatinine Ratio 7.6 (6-22); Bilirubin Total 0.1 mg/dL (0.2-1.3); Blood Urea Nitrogen 18 mg/dL (7-17); Calcium 8.2 mg/dL (8.4-10.2); Carbon Dioxide 20 mmol/L (22-32); Chloride 106 mmol/L (98-107); Estimated Glomerular Filt Rate 21 mL/min (>60); Globulin 3.2 g/dL (1.7-4.1); Glucose 120 mg/dL (80-110); HEMOLYSIS < 15 (0-50); Potassium 5.4 mmol/L (3.4-5.1); Sodium 133 mmol/L (137-145); Total Protein 6.5 g/dL (6.3-8.2)
[2021-07-25 20:34] LABS: D Dimer 564 ng/mL (<230); Troponin I 0.035 ng/mL (0.01-0.034)
[2021-07-25] MEDS: NITROGLYCERIN OINT 1 INCH/GM OINT...G. 0.5 INCH TOP (20:36)
[2021-07-25 20:37] LABS: COVID19 -Nasal RAPID Negative (Negative)
[2021-07-25] MEDS: ASPIRIN 81 MG CHEW TAB 324 MG PO (20:37)
[2021-07-25 20:47] LABS: NT-proBNP (BNP-Adult 18+) 39800 pg/mL (<450)
[2021-07-25] MEDS: ACETAMINOPHEN 325 MG TABLET 650 MG PO (20:48)
--- NOTE | 2021-07-25 22:15 | ED.GENADULT ---
HPI - General Adult General Chief complaint: Shortness of Breath/Dyspnea Stated complaint: struggling to breathe x1 day Time Seen by Provider: 07/25/21 19:47 Source: patient and family Mode of arrival: Wheelchair History of Present Illness HPI narrative: Woman with a history of coronary artery disease with widespread small vessel disease, ischemic cardiomyopathy, chronic kidney disease, hyperlipidemia, diabetes, hypertension and congestive heart failure presents with acute onset shortness of breath that started at 7:00 p.m. while she was watching TV this evening. She does not describe fevers, coughs, overt chest pain or palpitations. On arrival she is tachypneic and pale but able to cooperate with history and physical while speaking in 5-6 word sentences. She is having no abdominal pain, vomiting, nausea. She has not noticed rib increased lower extremity edema nor orthopnea. She is not complaining of headache. Most recent echocardiogram is May 10 2019 . Ejection fraction is estimated 45-50%, septal wall and inferior wall hypokinesis, left ventricle normal in size and wall thickness Related Data Home Medications Medication Instructions Recorded Confirmed isosorbide mononitrate 60 mg 60 mg PO QAM 06/05/21 07/25/21 tablet,extended release 24 hr ascorbic acid (vitamin C) 500 mg 500 mg PO QAM 07/25/21 07/25/21 chewable tablet clopidogrel 75 mg tablet 75 mg PO QAM 07/25/21 07/25/21 digoxin 125 mcg (0.125 mg) tablet 125 mcg PO QAM 07/25/21 07/25/21 docusate sodium 100 mg capsule 100 mg PO QAM 07/25/21 07/25/21 (DOK) famotidine 40 mg tablet 40 mg PO QAM 07/25/21 07/25/21 glipizide 5 mg tablet, extended 5 mg PO QAM 07/25/21 07/25/21 release 24 hr linagliptin 5 mg tablet (Tradjenta) 5 mg PO QAM 07/25/21 07/25/21 lisinopril 5 mg tablet 5 mg PO QAM 07/25/21 07/25/21 [id number]-[id number] tablet 1 tab PO QAM 07/25/21 07/25/21 pantoprazole 40 mg tablet,delayed 40 mg PO QAM 07/25/21 07/25/21 release sertraline 50 mg tablet 50 mg PO QAM 07/25/21 07/25/21 torsemide 20 mg tablet 20 mg PO QAM 07/25/21 07/25/21 Previous Rx's Medication Instructions Recorded atorvastatin 40 mg tablet 40 mg PO BEDTIME #90 tab 11/28/20 cholecalciferol (vitamin D3) 25 25 mcg PO BID #180 tab 11/28/20 mcg (1,000 unit) tablet colestipol 1 gram tablet 1 g PO BID #180 tab 11/28/20 hydromorphone 2 mg tablet 2 mg PO BID PRN #60 tab 11/28/20 metoprolol tartrate 50 mg tablet 50 mg PO BID #180 tab 11/29/20 sulfamethoxazole 800 1 tab PO BID 7 Days #14 tab 07/20/21 mg-trimethoprim 160 mg tablet Allergies Allergy/AdvReac Type Severity Reaction Status Date / Time dimenhydrinate Allergy Verified 07/25/21 20:54 [From Dramamine] diphenhydramine AdvReac Verified 07/25/21 20:54 [From Benadryl] hydrocodone AdvReac Verified 07/25/21 20:54 Review of Systems Review of Systems Narrative: Remainder of complete review of systems is otherwise unremarkable except for that included in the HPI. Patient History Medical History Acute pancreatitis CHF (congestive heart failure) Cognitive impairment Major depression in partial remission Myocardial infarction Osteoarthritis Plaque psoriasis Type 2 diabetes mellitus Surgical History History of appendectomy History of bilateral hip replacements History of cholecystectomy History of left knee surgery History of surgery on right wrist Family History Mother Congestive heart failure Brother Congestive heart failure Social History household members: family and children Smoking Status: Never smoker alcohol intake: never Smoking Status: Never smoker Substance Use Type: does not use Exam Initial Vital Signs Initial Vital Signs: Vital Signs Temperature 98.2 F 07/25/21 19:40 Pulse Rate 79 07/25/21 19:40 Respiratory Rate 18 07/25/21 19:40 Blood Pressure 139/65 07/25/21 19:40 Pulse Oximetry 100 07/25/21 19:40 General: Chronically ill-appearing in moderate respiratory distress but Able to cooperate with history. Well-nourished well-developed HEENT: Moist mucous membranes, normal sclera with reactive pupils, Neck: + JVD, supple Respiratory: Lungs bibasilar crackles to mid lung [place] but no wheezing no rales no rhonchi. Full and symmetrical air movement Cardiac: Regular rate and rhythm no murmurs no bruits Abdomen: Soft, nontender, good bowel tones, no flank pain Skin: Warm and dry, no rashes Neurologic: Grossly neurologically intact with no obvious asymmetries or abnormalities Extremities: No trauma, well perfused Psych: Cooperative, appropriate insight and affect Course Orders Ordered: ED Orders 07/25/21 19:45 XR chest 1V Stat EKG-12 Lead Stat Measure peak expiratory flow ONCE RT Consult Eval and Treat Now 07/25/21 20:00 Complete Blood Count AUTO DIFF Stat Comprehensive Metabolic Panel Stat D Dimer Stat Digoxin Stat Lactate (Lactic Acid) Stat NT-proBNP (BNP-Adult 18+) Stat Troponin & CK Cardiac Panel Stat 07/25/21 20:10 COVID19 -Nasal RAPID/Pre-Proc Stat 07/25/21 22:20 Trop I [Troponin I] Stat Discontinued Medications Acetaminophen (Acetaminophen 325 Mg Tablet) 650 mg PO NOW ONE Stop: 07/25/21 20:45 Last Admin: 07/25/21 20:48 Dose: 650 mg Documented by: ARISTIDES Aspirin (Aspirin 81 Mg Chew Tab) 324 mg PO NOW ONE Stop: 07/25/21 20:31 Last Admin: 07/25/21 20:37 Dose: 324 mg Documented by: ARISTIDES Furosemide (Furosemide 100 Mg/10 Ml Vial) 80 mg IV NOW ONE Stop: 07/25/21 22:17 Last Admin: 07/25/21 22:37 Dose: 80 mg Documented by: DENNIS Nitroglycerin (Nitroglycerin Oint 1 Inch/Gm Oint...G.) 0.5 inch TOP NOW ONE Stop: 07/25/21 20:31 Last Admin: 07/25/21 20:36 Dose: 0.5 inch Documented by: ARISTIDES Vital Signs Vital signs: Vital Signs - 8 hr 07/25/21 19:40 07/25/21 20:04 07/25/21 20:08 Temperature 98.2 F Pulse Rate 79 83 84 Respiratory Rate 18 33 H 27 H Blood Pressure 139/65 129/65 Pulse Oximetry 100 98 100 07/25/21 20:15 07/25/21 20:30 07/25/21 20:45 Temperature Pulse Rate 82 82 77 Respiratory Rate 30 H 25 H 22 Blood Pressure 128/60 135/67 133/70 Pulse Oximetry 97 100 100 07/25/21 21:00 07/25/21 21:15 07/25/21 21:30 Temperature Pulse Rate 79 79 75 Respiratory Rate 28 H 33 H 23 Blood Pressure 135/67 131/65 133/68 Pulse Oximetry 100 100 100 07/25/21 21:45 07/25/21 22:00 07/25/21 22:15 Temperature Pulse Rate 79 77 76 Respiratory Rate 23 27 H 20 Blood Pressure 135/72 135/67 133/62 Pulse Oximetry 100 100 100 07/25/21 22:30 07/25/21 22:45 07/25/21 23:00 Temperature Pulse Rate 73 79 76 Respiratory Rate 24 22 22 Blood Pressure 129/65 133/67 135/67 Pulse Oximetry 100 98 99 07/25/21 23:31 Temperature Pulse Rate Respiratory Rate Blood Pressure Pulse Oximetry 97 Medical Decision Making Lab Data Result diagrams: 07/25/21 20:00 07/25/21 20:00 Labs: Lab Results 07/25/21 07/25/21 07/25/21 Range/Units 20:00 20:00 20:00 WBC 7.1 (4.5-11.0) X10^3/uL RBC 3.51 L (4.0-5.2) X10^6/uL Hgb 8.6 L (12.0-16.0) g/dL Hct 26.3 L (36-46) % MCV 74.9 L (80-100) fL MCH 24.4 L (26-34) PG MCHC 32.6 (30-36) % RDW 15.7 H (11.6-14.8) % Plt Count 394 (150-400) X10^3/uL Neut % (Auto) 77.4 H (50-75) % Lymph % (Auto) 10.9 L (25-40) % [place] % (Auto) 9.3 (3-14) % Eos % (Auto) 2.0 (2-4) % Baso % (Auto) 0.4 (0-2) % Neut # (Auto) 5500 (5114-2852) /uL Lymph # (Auto) 800 L (5451-1562) /uL [place] # (Auto) 700 (0-900) /uL Eos # (Auto) 100 (0-450) /uL Baso # (Auto) 0 (0-100) /uL D-Dimer (<230) ng/mL Sodium 133 L (137-145) mmol/L Potassium 5.4 H (3.4-5.1) mmol/L Chloride 106 (98-107) mmol/L Carbon Dioxide 20 L (22-32) mmol/L BUN 18 H (7-17) mg/dL Creatinine 2.36 H (0.52-1.04) mg/dL Estimated GFR 21 L (>60) mL/min BUN/Creatinine Ratio 7.6 (6-22) Glucose 120 H (80-110) mg/dL Lactate 1.6 (0.7-2.1) mmol/L Calcium 8.2 L (8.4-10.2) mg/dL Total Bilirubin 0.1 L (0.2-1.3) mg/dL AST 30 (14-36) IU/L ALT 12 (<35) IU/L Alkaline Phosphatase 126 (38-126) U/L Total Creatine Kinase (30-135) U/L CK-MB (CK-2) CK-MB (CK-2) Rel Index Troponin I (0.01-0.034) ng/mL NT-Pro-B Natriuret Pep (<450) pg/mL Total Protein 6.5 (6.3-8.2) g/dL Albumin 3.3 L (3.5-5.0) g/dL Globulin 3.2 (1.7-4.1) g/dL Albumin/Globulin Ratio 1.0 (1.0-2.8) Digoxin (0.8-2.0) ng/mL SARS-CoV-2 (PCR) (Negative) 07/25/21 07/25/21 07/25/21 Range/Units 20:00 20:00 20:00 WBC (4.5-11.0) X10^3/uL RBC (4.0-5.2) X10^6/uL Hgb (12.0-16.0) g/dL Hct (36-46) % MCV (80-100) fL MCH (26-34) PG MCHC (30-36) % RDW (11.6-14.8) % Plt Count (150-400) X10^3/uL Neut % (Auto) (50-75) % Lymph % (Auto) (25-40) % [place] % (Auto) (3-14) % Eos % (Auto) (2-4) % Baso % (Auto) (0-2) % Neut # (Auto) (2874-3215) /uL Lymph # (Auto) (1293-3705) /uL [place] # (Auto) (0-900) /uL Eos # (Auto) (0-450) /uL Baso # (Auto) (0-100) /uL D-Dimer 564 H (<230) ng/mL Sodium (137-145) mmol/L Potassium (3.4-5.1) mmol/L Chloride (98-107) mmol/L Carbon Dioxide (22-32) mmol/L BUN (7-17) mg/dL Creatinine (0.52-1.04) mg/dL Estimated GFR (>60) mL/min BUN/Creatinine Ratio (6-22) Glucose (80-110) mg/dL Lactate (0.7-2.1) mmol/L Calcium (8.4-10.2) mg/dL Total Bilirubin (0.2-1.3) mg/dL AST (14-36) IU/L ALT (<35) IU/L Alkaline Phosphatase (38-126) U/L Total Creatine Kinase 73 (30-135) U/L CK-MB (CK-2) TNP CK-MB (CK-2) Rel Index TNP Troponin I 0.035 H (0.01-0.034) ng/mL NT-Pro-B Natriuret Pep 84620 H (<450) pg/mL Total Protein (6.3-8.2) g/dL Albumin (3.5-5.0) g/dL Globulin (1.7-4.1) g/dL Albumin/Globulin Ratio (1.0-2.8) Digoxin 1.6 (0.8-2.0) ng/mL SARS-CoV-2 (PCR) (Negative) 07/25/21 07/25/21 Range/Units 20:10 22:20 WBC (4.5-11.0) X10^3/uL RBC (4.0-5.2) X10^6/uL Hgb (12.0-16.0) g/dL Hct (36-46) % MCV (80-100) fL MCH (26-34) PG MCHC (30-36) % RDW (11.6-14.8) % Plt Count (150-400) X10^3/uL Neut % (Auto) (50-75) % Lymph % (Auto) (25-40) % [place] % (Auto) (3-14) % Eos % (Auto) (2-4) % Baso % (Auto) (0-2) % Neut # (Auto) (3762-6530) /uL Lymph # (Auto) (4609-0515) /uL [place] # (Auto) (0-900) /uL Eos # (Auto) (0-450) /uL Baso # (Auto) (0-100) /uL D-Dimer (<230) ng/mL Sodium (137-145) mmol/L Potassium (3.4-5.1) mmol/L Chloride (98-107) mmol/L Carbon Dioxide (22-32) mmol/L BUN (7-17) mg/dL Creatinine (0.52-1.04) mg/dL Estimated GFR (>60) mL/min BUN/Creatinine Ratio (6-22) Glucose (80-110) mg/dL Lactate (0.7-2.1) mmol/L Calcium (8.4-10.2) mg/dL Total Bilirubin (0.2-1.3) mg/dL AST (14-36) IU/L ALT (<35) IU/L Alkaline Phosphatase (38-126) U/L Total Creatine Kinase (30-135) U/L CK-MB (CK-2) CK-MB (CK-2) Rel Index Troponin I 0.032 (0.01-0.034) ng/mL NT-Pro-B Natriuret Pep (<450) pg/mL Total Protein (6.3-8.2) g/dL Albumin (3.5-5.0) g/dL Globulin (1.7-4.1) g/dL Albumin/Globulin Ratio (1.0-2.8) Digoxin (0.8-2.0) ng/mL SARS-CoV-2 (PCR) Negative (Negative) Imaging Data Chest x-ray: Radiologist's Impression: FINDINGS:? ? Surgical changes and devices:? None.? ? Lungs and pleura:? Diffuse interstitial prominence.? Mild loss of vascular distinctness.? Small bilateral pleural effusions larger on the left. ? Mediastinum:? Mediastinal contours appear normal.? Heart size is borderline enlarged.? ? Bones and chest wall:? No suspicious bony lesions.? Overlying soft tissues appear unremarkable.? ? IMPRESSION:? Borderline cardiomegaly with findings suggestive of pulmonary edema/CHF.? A concurrent infectious or inflammatory process not excluded if clinically appropriate.? No focal consolidation seen. ? ? Dictated by: Jeancarlos Strange M.D. on 07/25/2021 at 20:57?? ECG Data Interpretation: Sinus rhythm at a rate of [address] depression Normal axis MDM Narrative Medical decision making narrative: 76-year-old woman with a history of ischemic cardiomyopathy, atherosclerotic coronary vascular disease and congestive heart failure presents with acute onset dyspnea this evening. She has a congestive heart failure by lab work, clinical exam as well as chest x-ray and is responding nicely to initial IV Lasix and topical nitrates. She has what appears to be a demand bump in her troponin without overt evidence of and STEMI. She has a minor increase in her chronic kidney disease with creatinine bumping from the 1.8 range to the 2.3 range. Initially was having hypokalemia without significant EKG changes and after Lasix was administered casting is coming down nicely. On re-evaluation she has diuresed around 400 cc of urine is looking significantly better, no longer tachypneic nor tachycardic not complaining of dyspnea nor chest pain. There is no sign of infectious etiology or sepsis at this time. D-dimer slightly elevated however corrects to normal ranges when age is taken into account. No evidence of pulmonary embolism at this time. Findings reviewed with patient and her daughter and questions are answered. Care is reviewed with the hospitalist this evening, Dr Dietz. Patient will be admitted to the hospitalist service for treatment of her acute congestive heart failure. Discharge Plan Departure Patient Disposition: Admitted As Inpatient Clinical Impression: Acute exacerbation of CHF (congestive heart failure), Acute dyspnea Prescriptions: No Action isosorbide mononitrate 60 mg tablet extended release 24 hr 60 mg PO QAM 0RF hydromorphone 2 mg tablet 2 mg PO BID PRN (Reason: Pain, Severe (7-10)) Qty: 60 0RF Rx Instructions: EXEMPT atorvastatin 40 mg tablet 40 mg PO BEDTIME Qty: 90 3RF cholecalciferol (vitamin D3) 25 mcg (1,000 unit) tablet 25 mcg PO BID Qty: 180 3RF colestipol 1 gram tablet 1 g PO BID Qty: 180 3RF metoprolol tartrate 50 mg tablet 50 mg PO BID Qty: 180 3RF famotidine 40 mg tablet 40 mg PO QAM 0RF glipizide 5 mg tablet extended release 24 hr 5 mg PO QAM 0RF clopidogrel 75 mg tablet 75 mg PO QAM 0RF docusate sodium [DOK] 100 mg capsule 100 mg PO QAM 0RF lisinopril 5 mg tablet 5 mg PO QAM 0RF sertraline 50 mg tablet 50 mg PO QAM 0RF Tradjenta 5 mg tablet 5 mg PO QAM 0RF torsemide 20 mg Tablet 20 mg PO QAM 0RF pantoprazole 40 mg Tablet,Delayed Release (Dr/Ec) 40 mg PO QAM 0RF ascorbic acid (vitamin C) [Chewable Vitamin C] 500 mg Tablet,Chewable 500 mg PO QAM 0RF digoxin 125 mcg (0.125 mg) Tablet 125 mcg PO QAM 0RF Centrum Silver Tablet 1 tab PO QAM 0RF sulfamethoxazole-trimethoprim 800-160 mg tablet 1 tab PO BID 7 Days Qty: 14 0RF Rx Instructions: x 7 days for UTI Referrals: Oliver Ibrahim MD [Primary Care Provider] -
[2021-07-25] MEDS: FUROSEMIDE 100 MG/10 ML VIAL 80 MG IV (22:37)
[2021-07-25 22:50] LABS: Digoxin 1.6 ng/mL (0.8-2.0)
[2021-07-25 22:52] LABS: Troponin I 0.032 ng/mL (0.01-0.034)
[2021-07-26] VITALS (18 sets, daily range): BP systolic 106–148; BP diastolic 45–72; PULSE 80–94; RESP 16–24; TEMP 36.2–37.1; O2SAT 93–100; BMI 24.7
--- NOTE | 2021-07-26 01:34 | DI.ECHO.S_ITS ---
[place] [facility]---------+ [facility] +---------+ : : [address] : : : : [id number] : : : : Phone: [phone]+ Echocardiogram Report + + :Name: BERTIN MARIO Study Date: 07/26/2021 Height: 66 in : :[facility] ReadingLocation: Weight: 160 lb : : Gender: Female BSA: 1.8 m2 : :: 1945 Age: 76 yrs BP: 143/46 mmHg: :Reason For Study: CHF EXACERBATION : :Ordering Physician: OLIVIA, : :KIM Performed By: Diana Mercer : :Referring: KIM BAKER : + + Interpretation Summary The left ventricle is normal in size and wall thickness. The ejection fraction is estimated to be 20-25%. Left ventricular function has significantly worsened compared to the previous exam. Except basal LV segments including basal anterior, basal inferior as well as basal anterolateral and basal posterolateral segments, rest of the segments are severely hypokinetic including entire septum. These findings could be due to stress-induced cardiomyopathy however cannot rule out multivessel coronary artery disease. Spontaneous echo contrast in the LV without any obvious LV clot. Previous LV ejection fraction was 45 to 50%. E/E' med: 37.5, suggestive of elevated LV filling pressure. The right ventricle is mildly dilated. Right ventricular systolic function is mildly reduced. Right ventricular systolic function has decreased since previous exam. There is moderate mitral regurgitation. Compared to the prior echo study, there has been an increase in the severity of mitral regurgitation. The tricuspid valve leaflets are thickened and/or calcified, but open well. There is moderate tricuspid regurgitation. Compared to the prior echo exam, there has been an increase in TR severity. The right ventricular systolic pressure is estimated to be at least 62 mmHg based on an estimated right atrial pressure of 8 mm Hg. There is severe pulmonary hypertension. Compared to the prior echo exam, there has been an increase in the severity of pulmonary hypertension. There is a left pleural effusion. There is mild luminal irregularity and echogenicity in the abdominal aorta, suggestive of aortic atherosclerotic disease. Mild atherosclerotic plaque(s) in the aortic arch. Procedure: A two-dimensional transthoracic echocardiogram with color flow and Doppler was performed. The study quality was technically good. Comparison is made with the echocardiogram of 05/10/2021. The heart rate ranged between 92-105 bpm during the study. The patient was in normal sinus rhythm during the exam. Left Ventricle: The left ventricle is normal in size and wall thickness. There is no thrombus. Trabeculae near apex are visualized. No thrombus is observed. The ejection fraction is estimated to be 20-25%. Left ventricular function has significantly worsened compared to the previous exam. Except basal LV segments including basal anterior, basal inferior as well as basal anterolateral and basal posterolateral segments, rest of the segments are severely hypokinetic including entire septum. These findings could be due to stress-induced cardiomyopathy however cannot rule out multivessel coronary artery disease. Spontaneous echo contrast in the LV without any obvious LV clot. Previous LV ejection fraction was 45 to 50%. E/E' med: 37.5. Right Ventricle: The right ventricle is mildly dilated. Right ventricular systolic function is mildly reduced. Right ventricular systolic function has decreased since previous exam. Atria: The left atrium is moderately dilated. The left atrium has mildly increased in size since the prior echo exam. Right atrial size is normal. There is no Doppler evidence for an interatrial shunt. Mitral Valve: There is mild mitral annular calcification. The mitral valve chordae are thickened and/or calcified. No significant mitral valve stenosis. There is moderate mitral regurgitation. Compared to the prior echo study, there has been an increase in the severity of mitral regurgitation. Aortic Valve: The aortic valve is not well visualized. There is discrete nodular thickening of the non- coronary cusp. There is mild aortic valve sclerosis. There is no aortic valve stenosis. No aortic regurgitation is present. Tricuspid Valve: The tricuspid valve leaflets are thickened and/or calcified, but open well. The right ventricular systolic pressure is estimated to be at least 62 mmHg based on an estimated right atrial pressure of 8 mm Hg. There is moderate tricuspid regurgitation. Compared to the prior echo exam, there has been an increase in TR severity. There is severe pulmonary hypertension. Compared to the prior echo exam, there has been an increase in the severity of pulmonary hypertension. Pulmonic Valve: The pulmonic valve is not well seen, but is grossly normal. There is trace pulmonic regurgitation. Great Vessels: The aortic root is normal size. The dimensions of the ascending aorta are normal. There is mild luminal irregularity and echogenicity in the abdominal aorta, suggestive of aortic atherosclerotic disease. Mild atherosclerotic plaque(s) in the aortic arch. The IVC is of normal diameter and collapses less than 50% with a sniff. This suggests a right atrial pressure of 8 mm Hg. Pericardium/ Pleura There is a trivial pericardial effusion noted. There are no echocardiographic indications of cardiac tamponade. There is a left pleural effusion. MMode/2D Measurements & Calculations LVIDd: 5.1 cm LVOT diam: 2.0 cm LVIDs: 4.4 cm Ao root diam: 3.0 cm FS: 13.4 % asc Aorta Diam: 3.3 cm IVSd: 0.68 cm Ao Arch Diam (Prox Trans): 2.5 cm LVPWd: 0.72 cm LV pires. diameter/BSA (cm/m^2): 2.8 LV sys. diameter/BSA (cm/m^2): 2.4 LA A2 area: 22.6 cm2 RA long axis: 5.3 cm LA A4 area: 26.7 cm2 RA area: 17.0 cm2 LA length (vol): 6.4 cm RA vol: 46.6 ml LA vol: 80.2 ml RA : 25.6 ml/m2 LA vol index: 44.1 ml/m2 IVC diam: 2.0 cm RVD1 (basal): 3.3 cm RVD2 (mid): 2.8 cm TAPSE: 1.6 cm Doppler Measurements & Calculations Ao V2 max: 160.8 cm/sec LVOT Max Jimmy: 80.3 cm/sec Ao V2 mean: 111.3 cm/sec LV V1 max P.6 mmHg Ao max P.4 mmHg LV V1 VTI: 13.5 cm Ao mean P.7 mmHg CATHY(I,D): 1.5 cm2 Ao V2 VTI: 29.0 cm CATHY(V,D): 1.6 cm2 sev ratio: 0.47 CATHY indexed to BSA (cm^2/m^2): 0.82 MV E max jimmy: 146.0 cm/sec TR max jimmy: 366.1 cm/sec MV A max jimmy: 1.8 cm/sec TR max P.6 mmHg MV E/A: 83.1 PA V2 max: 100.1 cm/sec Med Peak E' Jimmy: 3.9 cm/sec PA V2 mean: 64.4 cm/sec E/E' med: 37.5 PA mean P.9 mmHg Lat Peak E' Jimmy: 5.2 cm/sec PA pr(Accel): 37.9 mmHg E/E' lat: 28.0 E/e' average: 32.8 MV dec time: 0.18 sec SV(LVOT): 43.1 ml Reading Physician:01:54 PM
[2021-07-26 05:10] LABS: Add Manual Diff / Slide Review NO; Basophils Absolute Auto 0 /uL (0-100); Basophils Percent Auto 0.8 % (0-2); Eosinophils Absolute Auto 100 /uL (0-450); Eosinophils Percent Auto 2.2 % (2-4); Hematocrit 24.5 % (36-46); Hemoglobin 7.9 g/dL (12.0-16.0); Lymphocytes Absolute Auto 700 /uL (1100-4500); Lymphocytes Percent Auto 14.3 % (25-40); Mean Corpuscular HGB Conc 32.1 % (30-36); Mean Corpuscular Hemoglobin 24.3 PG (26-34); Mean Corpuscular Volume 75.6 fL (80-100); Monocytes Absolute Auto 500 /uL (0-900); Monocytes Percent Auto 9.2 % (3-14); Neutrophils Absolute Auto 3600 /uL (1500-7000); Neutrophils Percent Auto 73.5 % (50-75); Platelet Count 342 X10^3/uL (150-400); Red Blood Cell Count 3.24 X10^6/uL (4.0-5.2); White Blood Cell Count 4.9 X10^3/uL (4.5-11.0)
[2021-07-26 05:16] LABS: BUN Creatinine Ratio 6.9 (6-22); Blood Urea Nitrogen 19 mg/dL (7-17); Calcium 8.3 mg/dL (8.4-10.2); Carbon Dioxide 19 mmol/L (22-32); Chloride 107 mmol/L (98-107); Estimated Glomerular Filt Rate 17 mL/min (>60); Glucose 89 mg/dL (80-110); HEMOLYSIS < 15 (0-50); Sodium 136 mmol/L (137-145)
[2021-07-26 05:17] LABS: Potassium 5.4 mmol/L (3.4-5.1)
--- NOTE | 2021-07-26 06:26 | PM.HP.1 ---
History of Present Illness History of Present Illness Date Patient Seen: 07/26/21 Time Patient Seen: 05:00 Chief complaint: struggling to breathe x1 day Narrative: Ms. Foley is a 76W with PMH CAD, CHFrEF, DM on insulin, cognitive impairment, HTN, HL who presents with shortness of breath. She has known cardiac disease, last known cath in 2019 showed diffuse LAD disease with no intervention done. She has had a recent stress test that showed fixed wall motion abnormality, patient unclear if further workup planned. She had been in her normal state of health until this evening while sitting watching TV she developed shortness of breath acutely. She had no chest pain. No fevers/chills. No sick family members. No coughing. She noticed no other symptoms. She presented to the ED workup was done with normal vital signs except for tachypnea. She had oxygen placed for comfort. Labs notable for WBC 7.1, hgb 8.6, creatinine 2.36, k 5.4. Lactate 1.6. D-dimer 564. Trop 0.035->0.032. BNP 87235. Dig 1.6. Chest xray showed cardiomegaly with pulmonary edema and bilateral pleural effusions. She was ordered for lasix and admitted for further treatment. Patient History Medical History Acute pancreatitis CHF (congestive heart failure) Cognitive impairment Major depression in partial remission Myocardial infarction Osteoarthritis Plaque psoriasis Type 2 diabetes mellitus Surgical History History of appendectomy History of bilateral hip replacements History of cholecystectomy History of left knee surgery History of surgery on right wrist Family & Social History Family History Mother Congestive heart failure Brother Congestive heart failure Social History: household members family,children Prior Living Arrangements House Safety & Behavioral: Feels Safe in Current Yes Environment Been Physically Hurt or No Threatened By a Person Suicidal Ideation Description None Suicide Plan Description No Plan Tobacco & Substance use: Smoking Status Never smoker alcohol intake never Substance Use Type does not use Meds Home Medications and Allergies Home Medications Medication Instructions Recorded Confirmed Type atorvastatin 40 mg tablet 40 mg PO BEDTIME #90 tab 11/28/20 07/25/21 Rx cholecalciferol (vitamin D3) 25 25 mcg PO BID #180 tab 11/28/20 07/25/21 Rx mcg (1,000 unit) tablet colestipol 1 gram tablet 1 g PO BID #180 tab 11/28/20 07/25/21 Rx hydromorphone 2 mg tablet 2 mg PO BID PRN #60 tab 11/28/20 07/25/21 Rx metoprolol tartrate 50 mg tablet 50 mg PO BID #180 tab 11/29/20 07/25/21 Rx isosorbide mononitrate 60 mg 60 mg PO QAM 06/05/21 07/25/21 History tablet,extended release 24 hr sulfamethoxazole 800 1 tab PO BID 7 Days #14 tab 07/20/21 07/25/21 Rx mg-trimethoprim 160 mg tablet ascorbic acid (vitamin C) 500 mg 500 mg PO QAM 07/25/21 07/25/21 History chewable tablet clopidogrel 75 mg tablet 75 mg PO QAM 07/25/21 07/25/21 History digoxin 125 mcg (0.125 mg) tablet 125 mcg PO QAM 07/25/21 07/25/21 History docusate sodium 100 mg capsule 100 mg PO QAM 07/25/21 07/25/21 History (DOK) famotidine 40 mg tablet 40 mg PO QAM 07/25/21 07/25/21 History glipizide 5 mg tablet, extended 5 mg PO QAM 07/25/21 07/25/21 History release 24 hr linagliptin 5 mg tablet (Tradjenta) 5 mg PO QAM 07/25/21 07/25/21 History lisinopril 5 mg tablet 5 mg PO QAM 07/25/21 07/25/21 History bnjrtvjotpxg-rlxbrisb-qsbote tablet 1 tab PO QAM 07/25/21 07/25/21 History pantoprazole 40 mg tablet,delayed 40 mg PO QAM 07/25/21 07/25/21 History release sertraline 50 mg tablet 50 mg PO QAM 07/25/21 07/25/21 History torsemide 20 mg tablet 20 mg PO QAM 07/25/21 07/25/21 History Allergies Allergy/AdvReac Type Severity Reaction Status Date / Time dimenhydrinate Allergy Verified 07/25/21 20:54 [From Dramamine] diphenhydramine AdvReac Verified 07/25/21 20:54 [From Ramandeep] hydrocodone AdvReac Verified 07/25/21 20:54 Review of Systems Review of Systems Narrative: 14 systems reviewed and negative aside from what is noted in HPI Exam Vital Signs (past 8 hours): - 07/25/21 22:30 07/25/21 22:45 07/25/21 23:00 Temperature Pulse Rate 73 79 76 Respiratory Rate 24 22 22 Blood Pressure 129/65 133/67 135/67 Pulse Oximetry 100 98 99 07/25/21 23:15 07/25/21 23:30 07/25/21 23:31 Temperature Pulse Rate 79 81 Respiratory Rate 23 21 Blood Pressure 135/68 140/72 Pulse Oximetry 98 97 97 07/25/21 23:45 07/26/21 00:00 07/26/21 00:15 Temperature Pulse Rate 81 80 81 Respiratory Rate 16 17 23 Blood Pressure 137/67 133/70 138/67 Pulse Oximetry 97 96 97 07/26/21 00:30 07/26/21 00:45 07/26/21 01:00 Temperature Pulse Rate 83 83 81 Respiratory Rate 24 18 23 Blood Pressure 137/70 148/72 H 144/72 H Pulse Oximetry 96 98 95 07/26/21 01:34 07/26/21 04:39 07/26/21 05:34 Temperature 97.2 F L 98.7 F Pulse Rate 87 87 Respiratory Rate 20 16 Blood Pressure 143/46 H 138/45 L Pulse Oximetry 99 97 97 Oxygen Delivery Method Room Air Oxygen Flow Rate 2 Narrative Exam Narrative: GEN: no acute distress HEENT: moist mucous membranes, PERRL NECK: trachea midline, no JVD CV: regular rate and rhyth, no murmurs PULM: crackles at bilateral bases ABD: soft, nontender, nondistedned, no organomegaly, normal bowel sounds EXT: warm and well perfused with no edema NEURO: awake, alert, oriented, no focal deficits Objective Labs Result Diagrams: 07/26/21 04:58 07/26/21 04:58 Labs: Laboratory Results - last 24 hr 07/25/21 07/25/21 07/25/21 20:00 20:00 20:00 WBC 7.1 RBC 3.51 L Hgb 8.6 L Hct 26.3 L MCV 74.9 L MCH 24.4 L MCHC 32.6 RDW 15.7 H Plt Count 394 Neut % (Auto) 77.4 H Lymph % (Auto) 10.9 L [place] % (Auto) 9.3 Eos % (Auto) 2.0 Baso % (Auto) 0.4 Neut # (Auto) 5500 Lymph # (Auto) 800 L [place] # (Auto) 700 Eos # (Auto) 100 Baso # (Auto) 0 D-Dimer Sodium 133 L Potassium 5.4 H Chloride 106 Carbon Dioxide 20 L BUN 18 H Creatinine 2.36 H Estimated GFR 21 L BUN/Creatinine Ratio 7.6 Glucose 120 H Lactate 1.6 Calcium 8.2 L Magnesium Total Bilirubin 0.1 L AST 30 ALT 12 Alkaline Phosphatase 126 Total Creatine Kinase CK-MB (CK-2) CK-MB (CK-2) Rel Index Troponin I NT-Pro-B Natriuret Pep Total Protein 6.5 Albumin 3.3 L Globulin 3.2 Albumin/Globulin Ratio 1.0 Digoxin SARS-CoV-2 (PCR) 07/25/21 07/25/21 07/25/21 20:00 20:00 20:00 WBC RBC Hgb Hct MCV MCH MCHC RDW Plt Count Neut % (Auto) Lymph % (Auto) [place] % (Auto) Eos % (Auto) Baso % (Auto) Neut # (Auto) Lymph # (Auto) [place] # (Auto) Eos # (Auto) Baso # (Auto) D-Dimer 564 H Sodium Potassium Chloride Carbon Dioxide BUN Creatinine Estimated GFR BUN/Creatinine Ratio Glucose Lactate Calcium Magnesium Total Bilirubin AST ALT Alkaline Phosphatase Total Creatine Kinase 73 CK-MB (CK-2) TNP CK-MB (CK-2) Rel Index TNP Troponin I 0.035 H NT-Pro-B Natriuret Pep 48109 H Total Protein Albumin Globulin Albumin/Globulin Ratio Digoxin 1.6 SARS-CoV-2 (PCR) 07/25/21 07/25/21 07/26/21 20:10 22:20 04:58 WBC 4.9 RBC 3.24 L Hgb 7.9 L Hct 24.5 L MCV 75.6 L MCH 24.3 L MCHC 32.1 RDW 16.0 H Plt Count 342 Neut % (Auto) 73.5 Lymph % (Auto) 14.3 L [place] % (Auto) 9.2 Eos % (Auto) 2.2 Baso % (Auto) 0.8 Neut # (Auto) 3600 Lymph # (Auto) 700 L [place] # (Auto) 500 Eos # (Auto) 100 Baso # (Auto) 0 D-Dimer Sodium Potassium Chloride Carbon Dioxide BUN Creatinine Estimated GFR BUN/Creatinine Ratio Glucose Lactate Calcium Magnesium Total Bilirubin AST ALT Alkaline Phosphatase Total Creatine Kinase CK-MB (CK-2) CK-MB (CK-2) Rel Index Troponin I 0.032 NT-Pro-B Natriuret Pep Total Protein Albumin Globulin Albumin/Globulin Ratio Digoxin SARS-CoV-2 (PCR) Negative 07/26/21 07/26/21 04:58 04:58 WBC RBC Hgb Hct MCV MCH MCHC RDW Plt Count Neut % (Auto) Lymph % (Auto) [place] % (Auto) Eos % (Auto) Baso % (Auto) Neut # (Auto) Lymph # (Auto) [place] # (Auto) Eos # (Auto) Baso # (Auto) D-Dimer Sodium 136 L Potassium 5.4 H Chloride 107 Carbon Dioxide 19 L BUN 19 H Creatinine 2.74 H Estimated GFR 17 L BUN/Creatinine Ratio 6.9 Glucose 89 Lactate Calcium 8.3 L Magnesium 2.0 Total Bilirubin AST ALT Alkaline Phosphatase Total Creatine Kinase CK-MB (CK-2) CK-MB (CK-2) Rel Index Troponin I NT-Pro-B Natriuret Pep Total Protein Albumin Globulin Albumin/Globulin Ratio Digoxin SARS-CoV-2 (PCR) Assessment & Plan Assessment & Plan narrative: Ms. Foley is a 76W with PMH CAD, CKD stage 3, DM, HTN who presents with sudden shortness of breath found to have acute CHF exacerbation 1. Acute hypoxemic respiratory failure secondary to acute CHF exacerbation with acute pulmonary edema -last EF 40-45% -unclear etiology for precipitant -initial BNP >28064, with fluid in lungs -received IV lasix in ED -continue IV lasix, and monitor urine output and creatinine closely -ordered for ECHO -hold digoxin for now, unclear what indication is 2. Anemia -no evidence of overt GI bleeding -low MCV noted, iron panel ordered -transfuse for hemoglobin <8 due to CAD 3. ZULEIMA on CKD stage 3 with hyperkalemia -improved potassium with IV lasix -kidney function remains stable -presume ZULEIMA due to renal congestion -monitor kidney function on lasix 4. Type 2 Diabetes on insulin -hold tradjenta, glipizide 5. Cognitive impairment 6. HTN -hold lisinopril 7. HL -continue statin 8. CAD with acute demand ischemia -continue statin, plavix, imdur -troponin downtrending with peak at 0.035 -recent stress shows fixed defect, and unclear if plans for cardiac cath -recheck troponin again this AM 9. Depression continue sertraline CODE: Full Proxy: Vivian Giang, daughter I have utilized all available resources to reconcile the patient's home medications Time Spent With Patient Critical Care time: I spent a total of [] minutes of critical care time on this patient's care today; this time is exclusive of procedural time. Quality VTE Deep Vein Thrombosis/Pulmonary Embolism Present on Admission: No MIPS - Admit I confirm the patient?s Advance Care Plan is present, Code status is documented, Surrogate decision maker is in patient?s record [If Yes, STOP here]: Yes
[2021-07-26 06:43] LABS: HEMOLYSIS < 15 (0-50); Iron 20 ug/dL (37-170)
[2021-07-26 06:54] LABS: Percent Iron Saturation 6 % (15-50); Total Iron Binding Capacity 316 ug/dL (265-497); Transferrin 240 mg/dL (206-381)
[2021-07-26 07:06] LABS: Troponin I 0.037 ng/mL (0.01-0.034)
[2021-07-26] MEDS: METOPROLOL IR 50 MG TABLET PO ×2 (09:30→21:06)
[2021-07-26] MEDS: ISOSORBIDE MONONITRATE ER 30 MG TABLET 60 MG PO (09:30)
[2021-07-26] MEDS: HEPARIN 5,000 UNIT/ML VIAL 5000 UNIT SUBCUT ×2 (09:30→21:05)
[2021-07-26] MEDS: SERTRALINE 50 MG TABLET PO (09:30)
[2021-07-26] MEDS: CLOPIDOGREL 75 MG TABLET PO (09:30)
--- NOTE | 2021-07-26 10:53 | CM.DANOTE ---
DCP: Case received, EMR reviewed and met with patient. Introduced self and role. Was able to obtain information regarding patient's baseline activity level prior to her hospitalization, as well as her current living situation. DCP assessment completed with information currently available. Patient is a 76 year old female who admitted early this morning to the care of the hospitalist team. PCP: Dr. Ibrahim. Payer: confirmed: Medicare/[employer] [place]. Patient came to the hospital via private vehicle secondary to having increased shortness of breath. PCP: Dr. Ibrahim. Payer: confirmed: Medicare/[employer] [place]. Patient came to the hospital via private vehicle secondary to having acute onset of shortness of breath when she was watching TV. Patient has history of coronary artery disease, ischemic cardiomyopathy, as well as chronic kidney disease and CHF, and cognitive impairment. Patient holds diagnosis of acute hypoxemic respiratory failure secondary to acute CHF exacerbation with acute pulmonary edema. Met with patient in her room. She was sitting up in bed, pleasant, alert and oriented. Confirmed with patient that she resides in here in [place] with her daughter, Mago Giang and son-in-law. She no longer drives. She uses a FWW for her mobility. She also indicated grand son lives with her. P: DCP to continue to follow. Patient should be able to go home when she is deemed medically stable. Evelyn Rolon RN/Train Control Electronic Technician Discharge Planning/Care Management CM Discharge Assessment Start: 07/26/21 10:47 Freq: Status: Active Protocol: Document 07/26/21 10:47 (Rec: 07/26/21 10:53 [id number]) Discharge Planning Assessment Assigned Knitting Machine Fixer Evelyn Rolon RN/Train Control Electronic Technician Advance Directives? Yes Advance Directives on File No History Provided By Patient,Medical Record Prior Living Arrangements House Household Members family,children Type of transporation used prior to Relies on Others admit Independent with ADL's Yes Is patient alert and oriented? Yes Caregiver for Another No Comment Patient uses devices: Cane, FWW or Wheel chair as needed Barriers to Discharge No Discharge Plan Home Transportation Arrangement Family to provide transportaion either daughter Mago or son-in-law Keon Referrals Initiated None needed Additional Comment Patient resides with her daughter. Whiteboard Updated in Patient Room with Yes name and ext. # of Knitting Machine Fixer Review Status In Process Next Review Type Continued Stay Review
[2021-07-26 15:20] LABS: Blood Urea Nitrogen 21 mg/dL (7-17); Carbon Dioxide 21 mmol/L (22-32); Chloride 107 mmol/L (98-107); Estimated Glomerular Filt Rate 15 mL/min (>60); Glucose 101 mg/dL (80-110); HEMOLYSIS < 15 (0-50); Sodium 134 mmol/L (137-145)
[2021-07-26 15:25] LABS: Potassium 5.7 mmol/L (3.4-5.1)
[2021-07-26] MEDS: ATORVASTATIN 20 MG TABLET 40 MG PO (21:06)
[2021-07-27] VITALS (16 sets, daily range): BP systolic 108–152; BP diastolic 52–78; PULSE 78–96; RESP 16–18; TEMP 36.1–37; O2SAT 95–100
[2021-07-27 05:24] LABS: Add Manual Diff / Slide Review NO; Basophils Absolute Auto 100 /uL (0-100); Eosinophils Absolute Auto 200 /uL (0-450); Eosinophils Percent Auto 3.3 % (2-4); Lymphocytes Absolute Auto 1100 /uL (1100-4500); Lymphocytes Percent Auto 19.9 % (25-40); Mean Corpuscular HGB Conc 32.1 % (30-36); Mean Corpuscular Hemoglobin 24.2 PG (26-34); Mean Corpuscular Volume 75.4 fL (80-100); Monocytes Absolute Auto 500 /uL (0-900); Neutrophils Absolute Auto 3700 /uL (1500-7000); Neutrophils Percent Auto 66.8 % (50-75); Platelet Count 357 X10^3/uL (150-400); Red Blood Cell Count 3.31 X10^6/uL (4.0-5.2); Red Cell Distribution Width 15.7 % (11.6-14.8); White Blood Cell Count 5.6 X10^3/uL (4.5-11.0)
[2021-07-27 05:34] LABS: BUN Creatinine Ratio 7.2 (6-22); Blood Urea Nitrogen 21 mg/dL (7-17); Calcium 7.9 mg/dL (8.4-10.2); Carbon Dioxide 20 mmol/L (22-32); Chloride 108 mmol/L (98-107); Estimated Glomerular Filt Rate 16 mL/min (>60); Glucose 98 mg/dL (80-110); HEMOLYSIS < 15 (0-50); Magnesium 1.9 mg/dL (1.6-2.3); Sodium 133 mmol/L (137-145)
[2021-07-27 05:45] LABS: Potassium 5.9 mmol/L (3.4-5.1)
[2021-07-27 05:58] LABS: NT-proBNP (BNP-Adult 18+) 38000 pg/mL (<450)
--- NOTE | 2021-07-27 08:15 | DI.RAD.S_ITS ---
PROCEDURE: XR CHEST 1V INDICATIONS: Follow-up pulmonary edema TECHNIQUE: One view of the chest was acquired. COMPARISON: [facility], CR, XR CHEST 1V, 07/25/2021, 20:17. FINDINGS: Surgical changes and devices: None. Lungs and pleura: Persistent blunting of the costophrenic sulci, which may reflect small pleural effusions. Faint density in the right midlung zone, which may reflect atelectasis/scar. Coarsened interstitial markings. No pneumothorax. Mediastinum: Mediastinal contours appear normal. The cardiac silhouette is upper limits of normal. Bones and chest wall: No suspicious bony lesions. Overlying soft tissues appear unremarkable. IMPRESSION: Small bilateral pleural effusions versus soft tissue attenuation/scarring. Dictated by: Naun Tam M.D. on 07/27/2021 at 9:13 Approved by: Naun Tam M.D. on 07/27/2021 at 9:16
[2021-07-27] MEDS: HEPARIN 5,000 UNIT/ML VIAL 5000 UNIT SUBCUT ×2 (09:27→21:08)
[2021-07-27] MEDS: carvediloL 3.125 MG TABLET PO (09:27)
[2021-07-27] MEDS: SERTRALINE 50 MG TABLET PO (09:27)
[2021-07-27] MEDS: metOLazone 2.5 MG TABLET PO ×2 (09:27→16:17)
[2021-07-27] MEDS: ISOSORBIDE MONONITRATE ER 30 MG TABLET 60 MG PO (09:27)
[2021-07-27] MEDS: CLOPIDOGREL 75 MG TABLET PO (09:27)
[2021-07-27] MEDS: BUMETANIDE 1 MG/4 ML VIAL IV ×2 (10:07→16:45)
--- NOTE | 2021-07-27 10:37 | CM.DPC ---
DCP Cont: Discussed patient during team rounds. She most likely will be here for a couple more days, according to hospitalist secondary to her needing more diuresis. Patient resides here in [place] with daughter, Vivian. P: DCP to continue to follow for any needs. Patient should be able to go home when she is deemed medically stable. Evelyn Rolon RN/Line Patrolman
--- NOTE | 2021-07-27 13:29 | P.PN_ITS ---
Subjective Subjective Interval history: The patient denies acute complaints this morning. She reports her breathing is somewhat better since admission. She reports eating and drinking OK, and endorses drinking less than 1.5 liters of fluid a day. She understands that she must limit her salt consumption, too. Exam Vital Signs (past 8 hours): - 07/27/21 08:00 07/27/21 09:00 07/27/21 09:27 Temperature 97.5 F L Pulse Rate 78 85 Respiratory Rate 16 Blood Pressure 152/78 H 152/78 H Pulse Oximetry 96 99 07/27/21 11:50 07/27/21 12:00 Temperature 98.6 F Pulse Rate 92 H Respiratory Rate 16 Blood Pressure 147/64 H Pulse Oximetry 96 95 Oxygen Delivery Method Room Air Oxygen Flow Rate 0 Const Other: Patient laying in bed comfortably upon my entering the room, does not appear in acute distress Eyes Other: No scleral icterus appreciated Resp Other: Wet crackles appreciated to bilateral bases, without other adventitious breath sounds appreciated Cardio Other: RRR, S1 and S2 heart sounds normal, with S3 appreciated, and no murmurs appreciated GI Other: Soft, non-distended, non-tender, bowel sounds present Skin Other: No grossly abnormal skin lesions noted Extrem Other: No peripheral edema noted, along with palpable dorsalis pedis pulses bilaterally Objective Labs Result Diagrams: 07/27/21 05:11 07/27/21 05:11 Labs: Laboratory Results - last 24 hr 07/26/21 07/27/21 07/27/21 14:44 05:11 05:11 WBC 5.6 RBC 3.31 L Hgb 8.0 L Hct 25.0 L MCV 75.4 L MCH 24.2 L MCHC 32.1 RDW 15.7 H Plt Count 357 Neut % (Auto) 66.8 Lymph % (Auto) 19.9 L [place] % (Auto) 9.0 Eos % (Auto) 3.3 Baso % (Auto) 1.0 Neut # (Auto) 3700 Lymph # (Auto) 1100 [place] # (Auto) 500 Eos # (Auto) 200 Baso # (Auto) 100 Sodium 134 L Potassium 5.7 H Chloride 107 Carbon Dioxide 21 L BUN 21 H Creatinine 3.02 H Estimated GFR 15 L BUN/Creatinine Ratio 7.0 Glucose 101 Calcium 8.0 L Magnesium NT-Pro-B Natriuret Pep 83583 H 07/27/21 05:11 WBC RBC Hgb Hct MCV MCH MCHC RDW Plt Count Neut % (Auto) Lymph % (Auto) [place] % (Auto) Eos % (Auto) Baso % (Auto) Neut # (Auto) Lymph # (Auto) [place] # (Auto) Eos # (Auto) Baso # (Auto) Sodium 133 L Potassium 5.9 H Chloride 108 H Carbon Dioxide 20 L BUN 21 H Creatinine 2.91 H Estimated GFR 16 L BUN/Creatinine Ratio 7.2 Glucose 98 Calcium 7.9 L Magnesium 1.9 NT-Pro-B Natriuret Pep [facility] Medical History Acute pancreatitis CHF (congestive heart failure) Cognitive impairment Major depression in partial remission Myocardial infarction Osteoarthritis Plaque psoriasis Type 2 diabetes mellitus Surgical History History of appendectomy History of bilateral hip replacements History of cholecystectomy History of left knee surgery History of surgery on right wrist Family History Mother Congestive heart failure Brother Congestive heart failure Social History household members: family and children Smoking Status: Never smoker alcohol intake: never Assessment & Plan Assessment & Plan narrative: Ms. Foley is a 76W with PMH of known CAD with diffuse LAD disase, CKD stage II, non-insulin dependent DM II, hypertension who presents with sudden shortness of breath found to have acute HFrEF exacerbation. 1. Acute hypoxemic respiratory failure, secondary to acute HFrEF exacerbation with acute pulmonary edema, improving - EF 20-25%, worse than recent EF of 40-45% in April, - Likely due to ischemic cardiomyopathy, and will diurese with IV Bumex and metolazone - Started carvedilol for beta katerina benefit, and will uptitrate as tolerated - Precluded from using MOIRA/ARB due to unknown chronicity of CKD, along with hyperkalemia - Precluded from using digoxin to help with positive inotropy due to degree of CKD 2. Anemia, microcytic, likely due to chronic iron deficiency along with anemia of chronic inflammation, stable 3. ZULEIMA on CKD stage 3, with hyperkalemia - There is likely a cardiorenal component to this, as patient likely has poor forward flow - Will diurese with IV Bumex and metolazone, too, as her kidney disease has progressed 4. Non-insulin dependent DM II - Insulin sliding scale inpatient 5. Cognitive impairment, baseline, stable 6. Hypertension - Holding MOIRA/ARB due to issues above - Given HFrEF, calcium channel blockers are poor choice, too - Needs afterload reduction in order to properly forward perfuse - Will uptitrate carvedilol as tolerated for now - Will uptitrate Imdur as tolerated, too - Hydralazine can also be added, with care to avoid rebound tachycardia 7. Hyperlipidemia - Will continue home atorvastatin 40 mg daily 8. Coronary artery disease - Will continue home Plavix 75 mg daily, atorvastatin 40 mg daily, Imdur 60 mg daily - Changed home Lopressor 50 mg bid to carvedilol 9. Depression - Will continue sertraline 50 mg daily VTE prophylaxis: Heparin 5000 units bid CODE: Full Proxy: Vivian Giang, daughter I have utilized all available resources to obtain, review, or confirm the patient's medications. Time Spent With Patient Critical Care time: I spent a total of [] minutes of critical care time on this patient's care today; this time is exclusive of procedural time. Quality VTE Deep Vein Thrombosis/Pulmonary Embolism Present on Admission: No MIPS - Admit I confirm the patient?s Advance Care Plan is present, Code status is documented, Surrogate decision maker is in patient?s record [If Yes, STOP here]: Yes
[2021-07-27] MEDS: INSULIN LISPRO 100 UNIT/ML 3ML VIAL SUBCUT (17:13)
--- NOTE | 2021-07-27 19:18 | PC.NURSE ---
Day shift note: Patient states breathing effort improved, daughter agrees. urine OUTPUT 1450ml this shift. INTAKE 540ml. Remains on RA, sats 98%. Strict I&O's. Fluid restrictions maintained.
[2021-07-27] MEDS: carvediloL 12.5 MG TABLET PO (21:03)
[2021-07-27] MEDS: ATORVASTATIN 20 MG TABLET 40 MG PO (21:08)
[2021-07-28] VITALS (13 sets, daily range): BP systolic 114–146; BP diastolic 52–70; PULSE 78–96; RESP 16–17; TEMP 36.1–37.1; O2SAT 94–98
--- NOTE | 2021-07-28 03:14 | PC.NURSE ---
BG 107@ 5, no insulin was administered per Omnip[employer].
[2021-07-28 05:48] LABS: BUN Creatinine Ratio 8.5 (6-22); Blood Urea Nitrogen 22 mg/dL (7-17); Calcium 7.7 mg/dL (8.4-10.2); Carbon Dioxide 18 mmol/L (22-32); Chloride 106 mmol/L (98-107); Estimated Glomerular Filt Rate 19 mL/min (>60); Glucose 114 mg/dL (80-110); HEMOLYSIS < 15 (0-50); Magnesium 1.8 mg/dL (1.6-2.3); Potassium 4.7 mmol/L (3.4-5.1); Sodium 132 mmol/L (137-145)
[2021-07-28] MEDS: HEPARIN 5,000 UNIT/ML VIAL 5000 UNIT SUBCUT ×2 (09:22→20:22)
[2021-07-28] MEDS: SERTRALINE 50 MG TABLET PO (09:22)
[2021-07-28] MEDS: CLOPIDOGREL 75 MG TABLET PO (09:22)
[2021-07-28] MEDS: ISOSORBIDE MONONITRATE ER 30 MG TABLET 60 MG PO (09:22)
[2021-07-28] MEDS: carvediloL 12.5 MG TABLET 25 MG PO ×2 (09:23→20:22)
[2021-07-28] MEDS: metOLazone 2.5 MG TABLET PO (09:26)
[2021-07-28] MEDS: BUMETANIDE 1 MG/4 ML VIAL IV (09:28)
--- NOTE | 2021-07-28 09:37 | PM.PN.1 ---
Subjective Subjective Interval history: Patient reports diuresing better throughout the day yesterday. She reports adherence with fluid restriction and sodium restriction. Denies any acute complaints. Exam Vital Signs (past 8 hours): - 07/28/21 04:59 07/28/21 08:10 07/28/21 09:23 Temperature 98.7 F 98.1 F Pulse Rate 89 86 86 Respiratory Rate 17 16 Blood Pressure 138/68 146/70 H Pulse Oximetry 97 95 Oxygen Delivery Method Room Air Oxygen Flow Rate 0 Narrative Exam Narrative: Const Other: Patient laying in bed comfortably upon my entering the room, does not appear in acute distress Eyes Other: No scleral icterus appreciated Resp Other: Wet crackles appreciated to bilateral bases, without other adventitious breath sounds appreciated Cardio Other: RRR, S1 and S2 heart sounds normal, with S3 appreciated, and no murmurs appreciated GI Other: Soft, non-distended, non-tender, bowel sounds present Skin Other: No grossly abnormal skin lesions noted Extrem Other: No peripheral edema noted, along with palpable dorsalis pedis pulses bilaterally Objective Labs Result Diagrams: 07/27/21 05:11 07/28/21 05:25 Labs: Laboratory Results - last 24 hr 07/28/21 05:25 Sodium 132 L Potassium 4.7 D Chloride 106 Carbon Dioxide 18 L BUN 22 H Creatinine 2.58 H Estimated GFR 19 L BUN/Creatinine Ratio 8.5 Glucose 114 H Calcium 7.7 L Magnesium 1.8 PFSH Medical History Acute pancreatitis CHF (congestive heart failure) Cognitive impairment Major depression in partial remission Myocardial infarction Osteoarthritis Plaque psoriasis Type 2 diabetes mellitus Surgical History History of appendectomy History of bilateral hip replacements History of cholecystectomy History of left knee surgery History of surgery on right wrist Family History Mother Congestive heart failure Brother Congestive heart failure Social History household members: family and children Smoking Status: Never smoker alcohol intake: never Assessment & Plan Assessment & Plan narrative: Ms. Foley is a 76W with PMH of known CAD with diffuse LAD disase, CKD stage II, non-insulin dependent DM II, hypertension who presents with sudden shortness of breath found to have acute HFrEF exacerbation. 1. Acute hypoxemic respiratory failure, secondary to acute HFrEF exacerbation with acute pulmonary edema, improving ?- EF 20-25%, worse than recent EF of 40-45% in April, ?- Likely due to ischemic cardiomyopathy, and will diurese with IV Bumex and metolazone, given likely cardiorenal syndrome ?- Started carvedilol for beta katerina benefit, and will uptitrate as tolerated ?- Precluded from using MOIRA/ARB due to unknown chronicity of CKD, along with hyperkalemia ?- Precluded from using digoxin to help with positive inotropy due to degree of CKD 2. Anemia, microcytic, likely due to chronic iron deficiency along with anemia of chronic inflammation, stable 3. ZULEIMA on CKD stage 3, with hyperkalemia ?- There is likely a cardiorenal component to this, as patient likely has poor forward flow ?- Will diurese with IV Bumex and metolazone, too, as her kidney disease has progressed 4. Non-insulin dependent DM II ?- Insulin sliding scale inpatient 5. Cognitive impairment, baseline, stable 6. Hypertension, with need to reduce afterload in order to properly forward perfuse ?- Holding MOIRA/ARB due to issues above ?- Given HFrEF, calcium channel blockers are poor choice, too ?- Will uptitrate carvedilol as tolerated for now ?- Will uptitrate Imdur as tolerated, too ?- Hydralazine can also be added, with care to avoid rebound tachycardia 7. Hyperlipidemia ?- Will continue home atorvastatin 40 mg daily 8. Coronary artery disease ?- Will continue home Plavix 75 mg daily, atorvastatin 40 mg daily, Imdur 60 mg daily ?- Changed home Lopressor 50 mg bid to carvedilol 9. Depression ?- Will continue sertraline 50 mg daily VTE prophylaxis: Heparin 5000 units bid Time Spent With Patient Critical Care time: I spent a total of [] minutes of critical care time on this patient's care today; this time is exclusive of procedural time. Quality VTE Deep Vein Thrombosis/Pulmonary Embolism Present on Admission: No
[2021-07-28] MEDS: ISOSORBIDE MONONITRATE ER 30 MG TABLET PO (10:24)
--- NOTE | 2021-07-28 11:17 | CM.DPC ---
DCP Cont: Discussed patient during team rounds. According to hospitalist, Dr. Andrade, patient is improving, anticipate another day or two here at the hospital to continue to diurese. Patient has good support system at home, she resides with daughter, Vivian. She sees Dr. Ibrahim for her primary care needs. P: DCP to continue to follow for any needs. Evelyn Rolon RN/Interior Design Principal
[2021-07-28] MEDS: INSULIN LISPRO 100 UNIT/ML 3ML VIAL SUBCUT (17:54)
[2021-07-28] MEDS: ATORVASTATIN 20 MG TABLET 40 MG PO (20:22)
[2021-07-28] MEDS: SODIUM CHLORIDE 0.9% FLUSH 10 ML IV (20:23)
--- NOTE | 2021-07-28 21:28 | PC.NURSE ---
Patient is alert and oriented. Breath sounds diminished in right LL and has crackles in left LL; RA sat 98%. Patient denies SOB at rest but states she still is SOB when up to bathroom. HRR; no 2000 telemetry reading recorded as yet and was SR w/1st degree AVB at 1600. Denied nausea. BT present and abdomen is soft. Denied dysuria, frequency or urgency with urination except after receiving diuretic. Is able to move herself in bed. Up to bathroom with walker and SBA. Denied pain. Fall risk score is high and bed alarm is activated.
[2021-07-29] VITALS (7 sets, daily range): BP systolic 131–155; BP diastolic 57–67; PULSE 74–83; RESP 16–17; TEMP 36.4–36.9; O2SAT 95–99
[2021-07-29 05:46] LABS: Blood Urea Nitrogen 22 mg/dL (7-17); Calcium 7.9 mg/dL (8.4-10.2); Carbon Dioxide 22 mmol/L (22-32); Chloride 104 mmol/L (98-107); Estimated Glomerular Filt Rate 20 mL/min (>60); Glucose 124 mg/dL (80-110); HEMOLYSIS < 15 (0-50); Magnesium 1.7 mg/dL (1.6-2.3); Phosphorous 4.8 mg/dL (2.8-4.1); Potassium 4.8 mmol/L (3.4-5.1); Sodium 131 mmol/L (137-145)
[2021-07-29] MEDS: carvediloL 12.5 MG TABLET 25 MG PO (09:15)
[2021-07-29] MEDS: MAGNESIUM CHLORIDE 64 MG TABLET 128 MG PO (09:15)
[2021-07-29] MEDS: ISOSORBIDE MONONITRATE ER 30 MG TABLET 60 MG PO (09:15)
[2021-07-29] MEDS: SERTRALINE 50 MG TABLET PO (09:16)
[2021-07-29] MEDS: CLOPIDOGREL 75 MG TABLET PO (09:16)
[2021-07-29] MEDS: SODIUM CHLORIDE 0.9% FLUSH 10 ML IV (09:16)
[2021-07-29] MEDS: HEPARIN 5,000 UNIT/ML VIAL 5000 UNIT SUBCUT (09:16)
--- NOTE | 2021-07-29 15:25 | CM.DPC ---
DCP Discharge Home Per MD, met bedside with pt and medically stable to d/c home today via family POV and no identified barriers to discharge. Per RN, no concerns at this time and will be providing discharge instructions this afternoon and pt has been ambulating SBA in room. Plan: Patient to discharge home today with Dtr and no identified discharge planning needs at this time. CRISTI Zavala
--- NOTE | 2021-08-03 17:57 | PM.DS.1 ---
History of Present Illness History of Present Illness Date Patient Seen: 07/29/21 Chief complaint: struggling to breathe x1 day Narrative: Ms. Foley is a 76W with PMH CAD, CHFrEF, DM on insulin, cognitive impairment, HTN, HL who presents with shortness of breath. She has known cardiac disease, last known cath in 2019 showed diffuse LAD disease with no intervention done. She has had a recent stress test that showed fixed wall motion abnormality, patient unclear if further workup planned. She had been in her normal state of health until this evening while sitting watching TV she developed shortness of breath acutely. She had no chest pain. No fevers/chills. No sick family members. No coughing. She noticed no other symptoms. She presented to the ED workup was done with normal vital signs except for tachypnea. She had oxygen placed for comfort. Labs notable for WBC 7.1, hgb 8.6, creatinine 2.36, k 5.4. Lactate 1.6. D-dimer 564. Trop 0.035->0.032. BNP 50940. Dig 1.6. Chest xray showed cardiomegaly with pulmonary edema and bilateral pleural effusions. She was ordered for lasix and admitted for further treatment. Discharge Providers Provider Date of admission: 07/26/21 00:40 Discharge Date: 07/29/21 Primary care physician: Oliver Ibrahim MD Discharge provider: Jaleesa Dewitt MD Summary Hospital Course Discharge Diagnosis: 1. Acute hypoxic respiratory failure secondary to heart failure with reduced ejection fraction 2. Ejection fraction 40-45% 3. Macrocytic anemia 4. JIMENA 5. Type 2 diet 6. Hypertension 7. Hyperlipidemia 8. Coronary artery disease 9. Depression Hospital Course: Patient was admitted to the hospital for shortness of breaths due to acute heart failure. She was diuresed and felt significantly improved. Patient tolerated a fluid restriction Given her a KI she was unable to take an OMIRA-inhibitor, she improved with diuresis and was deemed appropriate for discharge and arrangements were made to discharge her home. Status at Discharge Cognitive/behavioral status at discharge: oriented Functional status at discharge: independent ambulation Overall status at discharge: patient is progressing back to baseline Exam Vital Signs (past 8 hours): Oxygen Delivery Method Room Air Oxygen Flow Rate 0 Narrative Exam Narrative: Elderly female in no acute distress Resp Other: Lungs clear to auscultation Cardio Other: Cardiac exam: Regular rate rhythm normal S1-S2 GI Other: Abdomen: Soft and nontender Extrem Other: Extremity no edema Objective Labs Result Diagrams: 07/27/21 05:11 07/29/21 05:15 [facility] Medical History Acute pancreatitis CHF (congestive heart failure) Cognitive impairment Major depression in partial remission Myocardial infarction Osteoarthritis Plaque psoriasis Type 2 diabetes mellitus Surgical History History of appendectomy History of bilateral hip replacements History of cholecystectomy History of left knee surgery History of surgery on right wrist Family History Mother Congestive heart failure Brother Congestive heart failure Social History household members: family and children Smoking Status: Never smoker alcohol intake: never Discharge Assessment & Plan Assessment and Plan Assessment: 1. Acute hypoxic respiratory failure secondary to heart failure with reduced ejection fraction 2. Ejection fraction 40-45% 3. Macrocytic anemia 4. JIMENA 5. Type 2 diet 6. Hypertension 7. Hyperlipidemia 8. Coronary artery disease 9. Depression Plan of Treatment: Discharge home Discharge Plan Discharge Plan Patient Disposition: Home Discharge orders & Medications Prescriptions: New carvedilol [Coreg] 12.5 mg Tablet 25 mg PO BID Qty: 30 0RF carvedilol [Coreg] 25 mg tablet 25 mg PO BID Qty: 30 0RF Rx Instructions: must administer with a meal/food Continued isosorbide mononitrate 60 mg tablet extended release 24 hr 60 mg PO QAM 0RF hydromorphone 2 mg tablet 2 mg PO BID PRN (Reason: Pain, Severe (7-10)) Qty: 60 0RF Rx Instructions: EXEMPT atorvastatin 40 mg tablet 40 mg PO BEDTIME Qty: 90 3RF cholecalciferol (vitamin D3) 25 mcg (1,000 unit) tablet 25 mcg PO BID Qty: 180 3RF colestipol 1 gram tablet 1 g PO BID Qty: 180 3RF famotidine 40 mg tablet 40 mg PO QAM 0RF clopidogrel 75 mg tablet 75 mg PO QAM 0RF docusate sodium [DOK] 100 mg capsule 100 mg PO QAM 0RF sertraline 50 mg tablet 50 mg PO QAM 0RF Tradjenta 5 mg tablet 5 mg PO QAM 0RF torsemide 20 mg Tablet 20 mg PO QAM 0RF pantoprazole 40 mg Tablet,Delayed Release (Dr/Ec) 40 mg PO QAM 0RF ascorbic acid (vitamin C) 500 mg Tablet,Chewable 500 mg PO QAM 0RF [id number]-[id number]-nmepic Tablet 1 tab PO QAM 0RF Discontinued metoprolol tartrate 50 mg tablet 50 mg PO BID Qty: 180 3RF glipizide 5 mg tablet extended release 24 hr 5 mg PO QAM 0RF lisinopril 5 mg tablet 5 mg PO QAM 0RF digoxin 125 mcg (0.125 mg) Tablet 125 mcg PO QAM 0RF sulfamethoxazole-trimethoprim 800-160 mg tablet 1 tab PO BID 7 Days Qty: 14 0RF Rx Instructions: x 7 days for UTI Follow up/Referrals: Oliver Ibrahim MD [Primary Care Provider] - Discharge Health Status Multidrug resistant organism: No MDRO Diet/Activity/Treatments Diet: Low-sodium Visit Report/Discharge Packet Instructions: DI for Heart Failure Discharge Data Primary Care Provider: Oliver Ibrahim Quality VTE Deep Vein Thrombosis/Pulmonary Embolism Present on Admission: No
== END 2021-07-29 16:06 | disposition home or self-care (01) | DRG 291 ==
LOC: ED 07-26 00:23 → AC 07-26 00:41
PROVIDERS: Student in an Organized Health Care Education/Training Program; Admitting Provider Internal Medicine; Emergency Provider Emergency Medicine; PCP Student in an Organized Health Care Education/Training Program; Referring Provider Emergency Medicine; Visit Provider Internal Medicine
DX: I13.0 Hypertensive heart and chronic kidney disease with heart failure and stage 1 through stage 4 chronic kidney disease, or unspecified chronic kidney disease (principal); I50.23 Acute on chronic systolic (congestive) heart failure; J96.01 Acute respiratory failure with hypoxia; I24.8 Other forms of acute ischemic heart disease; N17.9 Acute kidney failure, unspecified; N18.30 Chronic kidney disease, stage 3 unspecified; E87.5 Hyperkalemia; E78.5 Hyperlipidemia, unspecified; I25.10 Atherosclerotic heart disease of native coronary artery without angina pectoris; F32.A Depression, unspecified; E11.22 Type 2 diabetes mellitus with diabetic chronic kidney disease; G31.84 Mild cognitive impairment of uncertain or unknown etiology; Z20.822 Contact with and (suspected) exposure to COVID-19; Z79.4 Long term (current) use of insulin
CPT/HCPCS: 36415; 71045; 80048; 80053; 80162; 82043; 82306; 82550; 82570; 82962; 83540; 83550; 83605; 83735; 83880; 83970; 84100; 84484; 84550; 85025; 85379; 87635; 93005; 93010; 93306; 94760; 96374; 99285; C9803; J1644; J1815; J1940

== ENCOUNTER → 2021-09-12 07:00 | Outpatient (CLI) | payer MEDICARE, OTHER, SELFPAY ==
[2021-07-26 00:47] VITALS: BMI 24.7
[2021-09-12 07:52] LABS: Hemoglobin 8.4 g/dL (12.0-16.0); Mean Corpuscular HGB Conc 30.9 % (30-36); Mean Corpuscular Hemoglobin 20.9 PG (26-34); Mean Corpuscular Volume 67.5 fL (80-100); Platelet Count 255 X10^3/uL (150-400); Red Cell Distribution Width 17.1 % (11.6-14.8); White Blood Cell Count 6.7 X10^3/uL (4.5-11.0)
[2021-09-12 07:58] LABS: Hemoglobin A1C% w Est Avg Glu 7.8 % (4.0-6.0)
[2021-09-12 08:14] LABS: Creatinine Urine Random 132.5 mg/dL
[2021-09-12 08:35] LABS: Microalbumi Creatinin Ratio Ur 703.3 ug/mg CR (<30); Microalbumin Urine Random 93.2 mg/dL (0-1.6)
[2021-09-12 09:02] LABS: BUN Creatinine Ratio 13.8 (6-22); Blood Urea Nitrogen 40 mg/dL (7-17); Calcium 8.6 mg/dL (8.4-10.2); Carbon Dioxide 21 mmol/L (22-32); Chloride 105 mmol/L (98-107); Estimated Glomerular Filt Rate 16 mL/min (>60); Glucose 147 mg/dL (80-110); HEMOLYSIS < 15 (0-50); Potassium 4.6 mmol/L (3.4-5.1); Sodium 136 mmol/L (137-145)
[2021-09-12 09:16] LABS: Phosphorous 4.5 mg/dL (2.8-4.1); Uric Acid 10.8 mg/dL (2.5-6.2)
[2021-09-12 09:31] LABS: Vitamin D 25 Hydroxy (D3) 53.9 ng/mL (30.0-100.0)
[2021-09-13 13:24] LABS: Parathyroid Hormone Int 110 pg/mL (15-65)
== END ==
PROVIDERS: PCP Student in an Organized Health Care Education/Training Program; Referring Provider Internal Medicine Nephrology; Visit Provider Internal Medicine Nephrology
DX: I10 Essential (primary) hypertension (principal); E11.9 Type 2 diabetes mellitus without complications; N18.4 Chronic kidney disease, stage 4 (severe); D64.9 Anemia, unspecified
CPT/HCPCS: 36415; 80048; 82043; 82306; 82570; 83036; 83735; 83970; 84100; 84550; 85027

== ENCOUNTER 2021-09-18 07:32 | Emergency (ER) | payer MEDICARE, OTHER, SELFPAY ==
[2021-07-26 00:47] VITALS: BMI 24.7
[2021-09-18] VITALS (11 sets, daily range): BP systolic 129–139; BP diastolic 68–75; PULSE 81–90; RESP 16–24; TEMP 36.6; O2SAT 98–100; BMI 23.6
--- NOTE | 2021-09-18 09:52 | ED.EXTPRO ---
HPI - Extremity Problem General Chief complaint: Extremity Problem,Nontraumatic Stated complaint: Swollen feet x24hrs, painful & jumpy x12 hrs Time Seen by Provider: 09/18/21 09:52 Source: patient Mode of arrival: Wheelchair Limitations: no limitations History of Present Illness HPI Narrative: This is a 76-year-old female who comes to the emergency department with complaint of painful restless lower extremities, increasing swelling, shortness of breath and orthopnea for the past several days. Patient has had restless leg but not this intense. She denies any chest pain or pressure. She feels like she can hear the crackles in her chest occasionally. No fevers or chills, no cold cough or congestion. She has had nausea but no vomiting. Normal bowel movements and urination. Patient has decreased urine output normally. She was contacted by her audio visual coordinator Dr. Kern on Saturday, September 15 and told that her renal failure was a little worse they asked her to change her torsemide but did not actually call in the prescription and to come in for fluids today. Patient is on metoprolol, lisinopril, she states torsemide 20 mg once daily glipizide, linagliptin, and isosorbide. Patient has history of cholecystectomy, hip and knee surgery. They have had discussions about dialysis. She has an aspirin daily. 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 Related Data Home Medications Medication Instructions Recorded Confirmed isosorbide mononitrate 60 mg 60 mg PO QAM 06/05/21 07/25/21 tablet,extended release 24 hr ascorbic acid (vitamin C) 500 mg 500 mg PO QAM 07/25/21 07/25/21 chewable tablet clopidogrel 75 mg tablet 75 mg PO QAM 07/25/21 07/25/21 docusate sodium 100 mg capsule 100 mg PO QAM 07/25/21 07/25/21 (DOK) famotidine 40 mg tablet 40 mg PO QAM 07/25/21 07/25/21 [id number]-luxhnqnc-wnbhee tablet 1 tab PO QAM 07/25/21 07/25/21 pantoprazole 40 mg tablet,delayed 40 mg PO QAM 07/25/21 07/25/21 release sertraline 50 mg tablet 50 mg PO QAM 07/25/21 07/25/21 torsemide 20 mg tablet 20 mg PO QAM 07/25/21 07/25/21 Previous Rx's Medication Instructions Recorded atorvastatin 40 mg tablet 40 mg PO BEDTIME #90 tab 11/28/20 cholecalciferol (vitamin D3) 25 25 mcg PO BID #180 tab 11/28/20 mcg (1,000 unit) tablet colestipol 1 gram tablet 1 g PO BID #180 tab 11/28/20 carvedilol 12.5 mg tablet (Coreg) 25 mg PO BID #30 tab 07/29/21 carvedilol 25 mg tablet (Coreg) 25 mg PO BID #90 tab 08/15/21 glipizide 2.5 mg tablet, extended 2.5 mg PO DAILY #30 tab 09/12/21 release 24 hr linagliptin 5 mg tablet (Tradjenta) 5 mg PO DAILY #30 tab 09/12/21 lorazepam 0.5 mg tablet (Ativan) 0.5 mg PO TID PRN #10 tab 09/18/21 torsemide 20 mg tablet 20 mg PO BID #20 tab 09/18/21 Allergies Allergy/AdvReac Type Severity Reaction Status Date / Time dimenhydrinate Allergy Verified 09/18/21 07:55 [From Dramamine] diphenhydramine AdvReac Verified 09/18/21 07:55 [From Benadryl] hydrocodone AdvReac Verified 09/18/21 07:55 Review of Systems Review of Systems ROS Unobtainable: All systems reviewed & are unremarkable except as noted in HPI and below Patient History Medical History Acute pancreatitis CHF (congestive heart failure) Cognitive impairment Major depression in partial remission Myocardial infarction Osteoarthritis Plaque psoriasis Type 2 diabetes mellitus Surgical History History of appendectomy History of bilateral hip replacements History of cholecystectomy History of left knee surgery History of surgery on right wrist Family History Mother Congestive heart failure Brother Congestive heart failure Social History household members: family and children Smoking Status: Never smoker alcohol intake: never Smoking Status: Never smoker Substance Use Type: does not use Exam Narrative Exam Narrative: GENERAL: Alert and oriented x three, female in mild distress. HEENT: Head normocephalic, atraumatic, EOMI, pupils reactive, face symmetric, moist mucous membranes NECK: Supple, full range of motion CARDIOVASCULAR: Regular rate and rhythm without murmurs, rubs or gallops. RESPIRATORY: Breath sounds equal bilaterally, no wheezes rales or rhonchi. ABDOMEN: Soft, nontender. Normoactive bowel sounds all 4 quadrants. No guarding or rebound, rigidity, no mass : No CVA tenderness EXTREMITIES: Normal range of motion, no clubbing. Positive bilateral lower extremity pedal edema. neurovascularly intact. NEUROLOGICAL: Cranial nerves II through XII grossly intact. Moving all extremities SKIN: Warm, dry, no petechiae, no rashes or lesions. Initial Vital Signs Initial Vital Signs: Vital Signs Temperature 98 F 09/18/21 07:49 Pulse Rate 82 09/18/21 07:49 Respiratory Rate 17 09/18/21 07:49 Blood Pressure 129/71 09/18/21 07:49 Pulse Oximetry 100 09/18/21 07:49 Course Orders Ordered: ED Orders 09/18/21 10:06 XR chest 1V Stat EKG-12 Lead Stat 09/18/21 10:50 Complete Blood Count AUTO DIFF Stat Comprehensive Metabolic Panel Stat Lipase Stat NT-proBNP (BNP-Adult 18+) Stat Troponin & CK Cardiac Panel Stat 09/18/21 11:32 periph venous low extrem bi Stat 09/18/21 12:05 Type and Screen Stat Discontinued Medications Furosemide (Furosemide 100 Mg/10 Ml Vial) 80 mg IV NOW ONE Stop: 09/18/21 12:24 Last Admin: 09/18/21 12:55 Dose: 80 mg Documented by: MAXI Lorazepam (Lorazepam 2 Mg/Ml Inj) 0.5 mg IV NOW ONE Stop: 09/18/21 11:27 Last Admin: 09/18/21 12:15 Dose: 0.5 mg Documented by: MAXI Reevaluation(s) Reevaluation #1: Discussed with patient will call her audio visual coordinator and speak with them about her current labs and recommendations if they would like to keep her for observation versus discharge home follow-up. Patient seems to be more interested in discharge home. She also is frustrated about narcotic pain control for her wrist she has had bilateral wrist fractures in the past has arthritic changes and has difficulty with ambulation. Her primary care gave her prescription narcotics in the past but has not continued to do so. We did discuss options for different types of walkers and attachments which might be helpful to allow her to still ambulate but not put is much weight on her wrists. Time: 12:45 Consultations Consultation #1: Dr. Osorio, nephrology. Follows with patient regularly. At if patient is appropriate for discharge 20 mg torsemide b.i.d. with recheck of her labs or Saturday. Patient is to keep her appointment on the 04 of October at noon with him. He notes with her recent worsening renal function her hemoglobin A1c is been improving likely secondary to her not metabolize in her medications as well. We discussed patient's renal function does appear to be fluid overloaded today. She appears to be not far off her baseline from our recent visits but he had not had any visits or labs from May for her and that he is suspects she is working her weight towards dialysis. Time: 12:50 Vital Signs Vital signs: Vital Signs - 8 hr 09/18/21 11:00 09/18/21 11:30 09/18/21 12:00 Pulse Rate 81 84 81 Respiratory Rate 23 24 17 Blood Pressure Pulse Oximetry 99 99 98 09/18/21 12:22 09/18/21 12:30 09/18/21 13:00 Pulse Rate 84 85 85 Respiratory Rate 21 24 24 Blood Pressure 137/72 132/68 Pulse Oximetry 99 99 99 09/18/21 13:37 Pulse Rate 90 Respiratory Rate 16 Blood Pressure 139/75 Pulse Oximetry 98 MDM - Extremity (Nontraumatic) Lab Data Result diagrams: 09/18/21 10:50 09/18/21 10:50 Labs: Lab Results 09/18/21 09/18/21 09/18/21 Range/Units 10:50 10:50 10:50 WBC 6.0 (4.5-11.0) X10^3/uL RBC 3.77 L (4.0-5.2) X10^6/uL Hgb 7.8 L (12.0-16.0) g/dL Hct 25.4 L (36-46) % MCV 67.4 L (80-100) fL MCH 20.8 L (26-34) PG MCHC 30.8 (30-36) % RDW 17.0 H (11.6-14.8) % Plt Count 221 (150-400) X10^3/uL Neut % (Auto) 70.8 (50-75) % Lymph % (Auto) 16.4 L (25-40) % Smyth % (Auto) 10.2 (3-14) % Eos % (Auto) 1.5 L (2-4) % Baso % (Auto) 1.1 (0-2) % Neut # (Auto) 4300 (2596-8626) /uL Lymph # (Auto) 1000 L (1531-4174) /uL Smyth # (Auto) 600 (0-900) /uL Eos # (Auto) 100 (0-450) /uL Baso # (Auto) 100 (0-100) /uL RBC Morphology Not Reportable Poikilocytosis 1+ H Anisocytosis 1+ H Sodium 138 (137-145) mmol/L Potassium 4.6 (3.4-5.1) mmol/L Chloride 107 (98-107) mmol/L Carbon Dioxide 22 (22-32) mmol/L BUN 41 H (7-17) mg/dL Creatinine 2.72 H (0.52-1.04) mg/dL Estimated GFR 18 L (>60) mL/min BUN/Creatinine Ratio 15.1 (6-22) Glucose 122 H (80-110) mg/dL Calcium 8.6 (8.4-10.2) mg/dL Total Bilirubin 0.3 (0.2-1.3) mg/dL AST 20 (14-36) IU/L ALT 12 (<35) IU/L Alkaline Phosphatase 71 (38-126) U/L Total Creatine Kinase 39 (30-135) U/L CK-MB (CK-2) TNP CK-MB (CK-2) Rel Index TNP Troponin I < 0.012 (0.01-0.034) ng/mL NT-Pro-B Natriuret Pep 12541 H (<450) pg/mL Total Protein 6.3 (6.3-8.2) g/dL Albumin 3.5 (3.5-5.0) g/dL Globulin 2.8 (1.7-4.1) g/dL Albumin/Globulin Ratio 1.3 (1.0-2.8) Lipase 167 (23-300) U/L Blood Type Antibody Screen 09/18/21 Range/Units 12:05 WBC (4.5-11.0) X10^3/uL RBC (4.0-5.2) X10^6/uL Hgb (12.0-16.0) g/dL Hct (36-46) % MCV (80-100) fL MCH (26-34) PG MCHC (30-36) % RDW (11.6-14.8) % Plt Count (150-400) X10^3/uL Neut % (Auto) (50-75) % Lymph % (Auto) (25-40) % Smyth % (Auto) (3-14) % Eos % (Auto) (2-4) % Baso % (Auto) (0-2) % Neut # (Auto) (3795-7837) /uL Lymph # (Auto) (2216-4095) /uL Smyth # (Auto) (0-900) /uL Eos # (Auto) (0-450) /uL Baso # (Auto) (0-100) /uL RBC Morphology Poikilocytosis Anisocytosis Sodium (137-145) mmol/L Potassium (3.4-5.1) mmol/L Chloride (98-107) mmol/L Carbon Dioxide (22-32) mmol/L BUN (7-17) mg/dL Creatinine (0.52-1.04) mg/dL Estimated GFR (>60) mL/min BUN/Creatinine Ratio (6-22) Glucose (80-110) mg/dL Calcium (8.4-10.2) mg/dL Total Bilirubin (0.2-1.3) mg/dL AST (14-36) IU/L ALT (<35) IU/L Alkaline Phosphatase (38-126) U/L Total Creatine Kinase (30-135) U/L CK-MB (CK-2) CK-MB (CK-2) Rel Index Troponin I (0.01-0.034) ng/mL NT-Pro-B Natriuret Pep (<450) pg/mL Total Protein (6.3-8.2) g/dL Albumin (3.5-5.0) g/dL Globulin (1.7-4.1) g/dL Albumin/Globulin Ratio (1.0-2.8) Lipase (23-300) U/L Blood Type O Positive Antibody Screen Negative Imaging Data Chest x-ray: Radiologist's Impression: Launch?Image [address] [address] XRay Report Signed Patient: Frances Foley MR#: [id number] : 1945 Acct:[id number] Age/Sex: 76 / F Date of Service: 09/18/21 Loc: ED Accession Number: [id number] ?? Procedure: XR chest 1V Ordering Provider: Christin Holloway D.O. PROCEDURE:? XR CHEST 1V ? INDICATIONS:? swelling feet. ? TECHNIQUE:? One view of the chest was acquired.? ? COMPARISON:? [facility], CR, XR CHEST 1V, 05/09/2021, 19:49.? [facility], CR, XR CHEST 1V, 07/27/2021, 8:20.? [facility], CR, XR CHEST 1V, 07/25/2021, 20:17. ? FINDINGS:? ? Surgical changes and devices:? None.? ? Lungs and pleura:? Silhouetting at the left hemidiaphragm.? ? Mediastinum:? Mediastinal contours appear unchanged.? Aortic arch atherosclerotic calcifications.? Heart size is large.? ? Bones and chest wall:? No suspicious bony lesions.? Overlying soft tissues appear unremarkable.? ? IMPRESSION:? Silhouetting at the left hemidiaphragm.? Suspect left pleural effusion and/or compressive atelectasis.? Pneumonia could have a similar appearance.? ? ? Dictated by: Juanito Presley M.D. on 09/18/2021 at 10:34 ? ? Approved by: Juanito Presley M.D. on 09/18/2021 at 10:36?? dvt bilateral: Radiologist's Impression: Frances Foley??76??F??1945 ? Allergy/Adv: dimenhydrinate, diphenhydramine, hydrocodone (More??) Close Vascular Ultrasound (Signed) Juanito Presley - 09/18/21 Chest X-Ray (Signed) Juanito Presley - 09/18/21 Chest X-Ray (Signed) Naun Tam - 07/27/21 Echocardiogram Ultrasound (Signed) Paliwquin,Crystaldhu - 07/26/21 Telemetry Strips 07/26/21 Chest X-Ray (Signed) Jeancarlos Strange - 07/25/21 Lumbar Spine X-Ray (Signed) Eldon Cates - 07/20/21 Radiology Report (Cancelled) Paliwal,Vidhu - 07/06/21 Myocardial Perfusion Scan Nuc Med (Signed) Paliwal,Vidhu - 07/06/21 Myocardial Perfusion Scan Nuc Med (Cancelled) 07/06/21 Wrist X-Ray (Signed) Britney Victor - 05/29/21 Echocardiogram Ultrasound (Signed) Paliwal,Crystaldhu - 05/09/21 Telemetry Strips 05/09/21 Chest X-Ray (Signed) Britney Victor - 05/09/21 Hip X-Ray (Signed) Devyn Perez - 10/27/[address] (Signed) Keon Alcantara - 10/18/[address] (Signed) Sherif Bourne - 10/16/20 Wrist X-Ray (Signed) Sherif Bourne - 10/15/20 Wrist X-Ray (Cancelled) 10/15/20 Shoulder X-Ray (Signed) Sherif Bourne - 10/15/20 Knee X-Ray (Signed) Sherif Bourne - 10/15/20 Hip X-Ray (Signed) Sherif Bourne - 10/15/20 Elbow X-Ray (Signed) Sherif Bourne - 10/15/20 Elbow X-Ray (Signed) Sherif Bourne - 10/15/20 Wrist X-Ray (Signed) Keon Alcantara - 09/07/20 Wrist X-Ray (Cancelled) 09/07/20 Hand X-Ray (Signed) Keon Alcantara - 09/07/20 Hand X-Ray (Cancelled) 09/07/20 Renal Ultrasound (Signed) Kenny Kwan - 08/28/[address] (Signed) Kenny Kwan - 08/28/[address] [address] Ultrasound Report Signed Patient: Frances Foley MR#: [id number] : 1945 Acct:[id number] Age/Sex: 76 / F Date of Service: 09/18/21 Loc: ED Accession Number: [id number] ?? Procedure: US periph venous low extrem bi Ordering Provider: Christin Holloway D.O. PROCEDURE:? US PERIPH VENOUS LOW EXTREM BI ? INDICATIONS:? PAIN, EDEMA ? TECHNIQUE:? Real-time imaging, as well as color and pulse Doppler interrogation, were performed of the deep veins of both legs from the inguinal ligament to the popliteal fossa.? ? COMPARISON:? None. ? FINDINGS:? ? Right: The common femoral, femoral and popliteal veins are normally compressible, and free of intraluminal thrombus.? Color and pulse Doppler demonstrate normal phasic intravascular flow.? There is normal augmentation response to distal compression maneuver.? ? Left: The common femoral, femoral and popliteal veins are normally compressible, and free of intraluminal thrombus.? Color and pulse Doppler demonstrate normal phasic intravascular flow.? There is normal augmentation response to distal compression maneuver.? ? ? IMPRESSION:? No lower extremity DVT in either leg. ? ? Dictated by: Juanito Presley M.D. on 09/18/2021 at 12:08 ? ? Approved by: Juanito Presley M.D. on 09/18/2021 at 12:11 ECG Data Attestation EKG: I personally reviewed and interpreted this ECG as follows: Prior ECG tracings: available for review Interpretation: Sinus rhythm first-degree AV block. Rate 80 3p are 226, QRS is [address] elevation depression noted. Nonspecific change. No acute changes noted from 07/27/2021. Patient has similar appearing ST change. MDM Narrative Medical decision making narrative: This is a 76-year-old female with known chronic kidney disease. Patient appears to be at her baseline or very close on labs today but she had last seen her audio visual coordinator in May. Patient has had increasing restless leg crampy sensation. She has had increased swelling and appears to have some CHF exacerbation likely related to her chronic kidney disease and is on torsemide 20 mg daily. She does not have any acute electrolyte changes, she is anemic likely secondary to decreased EPO production. Patient case was discussed with her audio visual coordinator, she does have some dyspnea and orthopnea but is able to ambulate to the bathroom at home, she is not tachycardic or hypoxic here in the department. She would like to return home plan increase her torsemide to 20 mg b.i.d. have repeat labs this week and follow-up with her audio visual coordinator on the 04 of October at her regular appointment. Patient and family were encouraged to return acutely if worsening. She was given dose of Ativan here in the department which was helpful for her restless leg although it made her sleepy. We discussed using very small amounts. Discharge Plan Departure Patient Disposition: Home Clinical Impression: Chronic kidney disease, CHF (congestive heart failure), Anemia Activity Restrictions/Additional Instructions: I spoke with your audio visual coordinator today. He asks that you follow-up with your appointment on October 04 at noon. Ask your audio visual coordinator if you need to start EPO or procrit, you do have anemia this is likely related to your renal dysfunction. He recommends we increased your torsemide to 20 mg (1 tablet) twice daily at this time. He also asked that we have your labs repeated on or Saturday this week which could be the or as an outpatient. A lab slip is included with your discharge paperwork. You may take 1 tablet of Ativan every 8 hours as needed for restless leg or before sleep. Prescription sent to [facility] in [place]. Please return for worsening shortness of breath, swelling, lightheadedness or passing out, new chest pain or pressure, worsening cramping of your extremities or other new or concerning symptoms. Prescriptions: New torsemide 20 mg tablet 20 mg PO BID Qty: 20 0RF lorazepam [Ativan] 0.5 mg tablet 0.5 mg PO TID PRN (Reason: leg spasm) Qty: 10 0RF No Action isosorbide mononitrate 60 mg tablet extended release 24 hr 60 mg PO QAM 0RF carvedilol [Coreg] 25 mg tablet 25 mg PO BID Qty: 90 1RF Rx Instructions: must administer with a meal/food Tradjenta 5 mg tablet 5 mg PO DAILY Qty: 30 5RF glipizide 2.5 mg tablet extended release 24 hr 2.5 mg PO DAILY Qty: 30 5RF atorvastatin 40 mg tablet 40 mg PO BEDTIME Qty: 90 3RF cholecalciferol (vitamin D3) 25 mcg (1,000 unit) tablet 25 mcg PO BID Qty: 180 3RF colestipol 1 gram tablet 1 g PO BID Qty: 180 3RF famotidine 40 mg tablet 40 mg PO QAM 0RF clopidogrel 75 mg tablet 75 mg PO QAM 0RF docusate sodium [DOK] 100 mg capsule 100 mg PO QAM 0RF sertraline 50 mg tablet 50 mg PO QAM 0RF torsemide 20 mg Tablet 20 mg PO QAM 0RF pantoprazole 40 mg Tablet,Delayed Release (Dr/Ec) 40 mg PO QAM 0RF ascorbic acid (vitamin C) 500 mg Tablet,Chewable 500 mg PO QAM 0RF [id number]-vlzfnqtq-[id number] Tablet 1 tab PO QAM 0RF carvedilol [Coreg] 12.5 mg Tablet 25 mg PO BID Qty: 30 0RF Referrals: Oliver Ibrahim MD [Primary Care Provider] - Ron Grewal PA-C [Non-Staff] - Visit Report Forms: Patient Portal/API
--- NOTE | 2021-09-18 10:06 | DI.RAD.S_ITS ---
PROCEDURE: XR CHEST 1V INDICATIONS: swelling feet. TECHNIQUE: One view of the chest was acquired. COMPARISON: [facility], CR, XR CHEST 1V, 05/09/2021, 19:49. [facility], CR, XR CHEST 1V, 07/27/2021, 8:20. [facility], CR, XR CHEST 1V, 07/25/2021, 20:17. FINDINGS: Surgical changes and devices: None. Lungs and pleura: Silhouetting at the left hemidiaphragm. Mediastinum: Mediastinal contours appear unchanged. Aortic arch atherosclerotic calcifications. Heart size is large. Bones and chest wall: No suspicious bony lesions. Overlying soft tissues appear unremarkable. IMPRESSION: Silhouetting at the left hemidiaphragm. Suspect left pleural effusion and/or compressive atelectasis. Pneumonia could have a similar appearance. Dictated by: Juanito Presley M.D. on 09/18/2021 at 10:34 Approved by: Juanito Presley M.D. on 09/18/2021 at 10:36
[2021-09-18 11:01] LABS: Add Manual Diff / Slide Review NO; Basophils Absolute Auto 100 /uL (0-100); Basophils Percent Auto 1.1 % (0-2); Eosinophils Absolute Auto 100 /uL (0-450); Eosinophils Percent Auto 1.5 % (2-4); Hematocrit 25.4 % (36-46); Hemoglobin 7.8 g/dL (12.0-16.0); Lymphocytes Absolute Auto 1000 /uL (1100-4500); Lymphocytes Percent Auto 16.4 % (25-40); Mean Corpuscular HGB Conc 30.8 % (30-36); Mean Corpuscular Hemoglobin 20.8 PG (26-34); Mean Corpuscular Volume 67.4 fL (80-100); Monocytes Absolute Auto 600 /uL (0-900); Monocytes Percent Auto 10.2 % (3-14); Neutrophils Absolute Auto 4300 /uL (1500-7000); Neutrophils Percent Auto 70.8 % (50-75); Platelet Count 221 X10^3/uL (150-400); Red Blood Cell Count 3.77 X10^6/uL (4.0-5.2)
[2021-09-18 11:08] LABS: Anisocytosis 1+; Poikilocytosis 1+
[2021-09-18 11:15] LABS: Alanine Aminotransferase 12 IU/L (<35); Albumin 3.5 g/dL (3.5-5.0); Albumin Globulin Ratio 1.3 (1.0-2.8); Alkaline Phosphatase 71 U/L (38-126); Aspartate Aminotransferase 20 IU/L (14-36); BUN Creatinine Ratio 15.1 (6-22); Bilirubin Total 0.3 mg/dL (0.2-1.3); Blood Urea Nitrogen 41 mg/dL (7-17); Calcium 8.6 mg/dL (8.4-10.2); Carbon Dioxide 22 mmol/L (22-32); Chloride 107 mmol/L (98-107); Creatine Kinase 39 U/L (30-135); Estimated Glomerular Filt Rate 18 mL/min (>60); Globulin 2.8 g/dL (1.7-4.1); Glucose 122 mg/dL (80-110); HEMOLYSIS < 15 (0-50); Lipase 167 U/L (23-300); Potassium 4.6 mmol/L (3.4-5.1); Sodium 138 mmol/L (137-145); Total Protein 6.3 g/dL (6.3-8.2)
[2021-09-18 11:27] LABS: Troponin I < 0.012 ng/mL (0.01-0.034)
--- NOTE | 2021-09-18 11:32 | DI.US.S_ITS ---
PROCEDURE: US PERIPH VENOUS LOW EXTREM BI INDICATIONS: PAIN, EDEMA TECHNIQUE: Real-time imaging, as well as color and pulse Doppler interrogation, were performed of the deep veins of both legs from the inguinal ligament to the popliteal fossa. COMPARISON: None. FINDINGS: Right: The common femoral, femoral and popliteal veins are normally compressible, and free of intraluminal thrombus. Color and pulse Doppler demonstrate normal phasic intravascular flow. There is normal augmentation response to distal compression maneuver. Left: The common femoral, femoral and popliteal veins are normally compressible, and free of intraluminal thrombus. Color and pulse Doppler demonstrate normal phasic intravascular flow. There is normal augmentation response to distal compression maneuver. IMPRESSION: No lower extremity DVT in either leg. Dictated by: Juanito Presley M.D. on 09/18/2021 at 12:08 Approved by: Juanito Presley M.D. on 09/18/2021 at 12:11
[2021-09-18 11:50] LABS: NT-proBNP (BNP-Adult 18+) 33500 pg/mL (<450)
[2021-09-18] MEDS: LORazepam 2 MG/ML INJ 0.5 MG IV (12:15)
[2021-09-18] MEDS: FUROSEMIDE 100 MG/10 ML VIAL 80 MG IV (12:55)
== END 2021-09-18 13:41 | disposition home or self-care (01) ==
PROVIDERS: Emergency Provider Emergency Medicine; PCP Student in an Organized Health Care Education/Training Program; Referring Provider Internal Medicine Nephrology
DX: N18.9 Chronic kidney disease, unspecified (principal); I50.9 Heart failure, unspecified; D64.9 Anemia, unspecified; I44.30 Unspecified atrioventricular block
CPT/HCPCS: 36415; 71045; 80053; 82550; 83690; 83880; 84484; 85025; 86850; 86900; 86901; 93005; 93010; 93970; 96374; 96375; 99284; J1940; J2060

== ENCOUNTER → 2021-09-22 13:18 | Outpatient (CLI) | payer MEDICARE, OTHER, SELFPAY ==
[2021-07-26 00:47] VITALS: BMI 24.7
[2021-09-22 13:51] LABS: HEMOLYSIS < 15 (0-50)
[2021-09-22 13:52] LABS: BUN Creatinine Ratio 16.2 (6-22); Blood Urea Nitrogen 48 mg/dL (7-17); Calcium 8.4 mg/dL (8.4-10.2); Carbon Dioxide 25 mmol/L (22-32); Chloride 106 mmol/L (98-107); Estimated Glomerular Filt Rate 16 mL/min (>60); Glucose 137 mg/dL (80-110); Sodium 136 mmol/L (137-145)
== END ==
PROVIDERS: PCP Student in an Organized Health Care Education/Training Program; Referring Provider Internal Medicine Nephrology; Visit Provider Internal Medicine Nephrology
DX: N17.9 Acute kidney failure, unspecified (principal)
CPT/HCPCS: 36415; 80048

== ENCOUNTER 2021-10-09 12:12 | Observation (INO) | payer MEDICARE, OTHER, SELFPAY ==
[2021-07-26 00:47] VITALS: BMI 24.7
[2021-10-09] VITALS (23 sets, daily range): BP systolic 117–149; BP diastolic 58–80; PULSE 68–96; RESP 17–28; TEMP 36.6–36.9; O2SAT 96–100; BMI 22.8
--- NOTE | 2021-10-09 12:24 | DI.RAD.S_ITS ---
PROCEDURE: XR CHEST 2V INDICATIONS: shortness of breath TECHNIQUE: 2 views of the chest were acquired. COMPARISON: [facility], , XR CHEST 1V, 07/27/2021, 8:20. [facility], CR, XR CHEST 1V, 09/18/2021, 10:18. FINDINGS: Surgical changes and devices: None. Lungs and pleura: There is a small left pleural effusion. The right lung is clear. No pulmonary consolidation. Mediastinum: Mediastinal contours are normal. Heart size is normal. Bones and chest wall: No suspicious bony abnormalities. Soft tissues appear unremarkable. IMPRESSION: Small left pleural effusion. Dictated by: Miriam Choudhary M.D. on 10/09/2021 at 13:08 Approved by: Miriam Choudhary M.D. on 10/09/2021 at 13:08
[2021-10-09 13:07] LABS: Hematocrit 25.2 % (36-46); Hemoglobin 7.7 g/dL (12.0-16.0); Mean Corpuscular HGB Conc 30.4 % (30-36); Mean Corpuscular Hemoglobin 19.7 PG (26-34); Mean Corpuscular Volume 64.8 fL (80-100); Platelet Count 194 X10^3/uL (150-400); Red Blood Cell Count 3.88 X10^6/uL (4.0-5.2); Red Cell Distribution Width 18.3 % (11.6-14.8); White Blood Cell Count 4.5 X10^3/uL (4.5-11.0)
[2021-10-09 13:08] LABS: Add Manual Diff / Slide Review YES
--- NOTE | 2021-10-09 13:15 | ED.SOB ---
HPI - SOB/Dyspnea General Chief Complaint: Shortness of Breath/Dyspnea Stated Complaint: COVID+, Underlying Health Issues, Ankle Swelling Time Seen by Provider: 10/09/21 12:40 History of Present Illness HPI Narrative: Patient is a 76-year-old female with history of diabetes, hypertension, congestive heart failure, chronic kidney disease, coronary artery disease, macrocytic anemia presenting today with increasing shortness of breath. She said she started having COVID symptoms 2 days ago had a negative test 2 days ago put retested again at midnight not positive. She has cough sore throat upper respiratory like symptoms. Sounds as though her cough is productive but unable to tell me color of sputum because she refuses to look at it. She complains of orthopnea. Over last 2 days she has had increased bilateral lower extremity edema. She feels nauseous but no abdominal pain. She denies any bleeding. She does appear pale. She denies any chest pain. She is vaccinated for COVID Related Data Home Medications Medication Instructions Recorded Confirmed isosorbide mononitrate 60 mg 60 mg PO QAM 06/05/21 07/25/21 tablet,extended release 24 hr ascorbic acid (vitamin C) 500 mg 500 mg PO QAM 07/25/21 07/25/21 chewable tablet clopidogrel 75 mg tablet 75 mg PO QA 07/25/21 07/25/21 [id number] tablet 1 tab PO QAM 07/25/21 07/25/21 torsemide 40 mg tablet 40 mg PO BID 09/28/21 Previous Rx's Medication Instructions Recorded atorvastatin 40 mg tablet 40 mg PO BEDTIME #90 tabs 11/28/20 carvedilol 12.5 mg tablet (Coreg) 25 mg PO BID #30 tabs 07/29/21 carvedilol 25 mg tablet (Coreg) 25 mg PO BID #90 tabs 08/15/21 glipizide 2.5 mg tablet, extended 2.5 mg PO DAILY #30 tabs 09/12/21 release 24 hr linagliptin 5 mg tablet (Tradjenta) 5 mg PO DAILY #30 tabs 09/12/21 lorazepam 0.5 mg tablet (Ativan) 0.5 mg PO TID PRN leg spasm #10 09/18/21 tabs torsemide 20 mg tablet 20 mg PO BID #20 tabs 09/18/21 cholecalciferol (vitamin D3) 25 25 mcg PO BID #180 tabs 09/22/21 mcg (1,000 unit) tablet colestipol 1 gram tablet 1 g PO BID #180 tabs 09/22/21 docusate sodium 100 mg capsule 100 mg PO QAM #90 caps 09/22/21 famotidine 40 mg tablet 40 mg PO QAM #90 tabs 09/22/21 pantoprazole 40 mg tablet,delayed 40 mg PO QAM #90 tabs 09/22/21 release sertraline 50 mg tablet 50 mg PO QAM #90 tabs 09/22/21 Allergies Allergy/AdvReac Type Severity Reaction Status Date / Time dimenhydrinate Allergy Verified 10/09/21 12:23 [From Dramamine] diphenhydramine AdvReac Verified 10/09/21 12:23 [From Benadryl] hydrocodone AdvReac Verified 10/09/21 12:23 Review of Systems Review of Systems Narrative: GENERAL: Denies chills, fatigue, malaise, fever, sweats, travel HEENT: Denies sinus pain, ear pain, sore throat, difficulty swallowing, neck pain RESPIRATORY: See HPI CARDIOVASCULAR: See HPI GASTROINTESTINAL: Denies nausea, vomiting, abdominal pain, diarrhea, constipation, melena. : Denies dysuria, frequency, incontinence, hematuria, urinary retention, flank pain. MUSCULOSKELETAL: Denies weakness, joint pain, or bony pain SKIN: No rash, no erythema, no pruritus NEUROLOGIC: Denies weakness, dizziness, headache, numbness, change in speech, confusion PSYCHIATRIC: No concerning psychosocial issues. 12 point review of systems is negative except for those stated above and HPI Patient History Medical History Acute pancreatitis CHF (congestive heart failure) Cognitive impairment Major depression in partial remission Myocardial infarction Osteoarthritis Plaque psoriasis Type 2 diabetes mellitus Surgical History History of appendectomy History of bilateral hip replacements History of cholecystectomy History of left knee surgery History of surgery on right wrist Family History Mother Congestive heart failure Brother Congestive heart failure Social History household members: family and children Smoking Status: Never smoker alcohol intake: never Smoking Status: Never smoker Substance Use Type: does not use Exam Initial Vital Signs Initial Vital Signs: Vital Signs Temperature 97.8 F 10/09/21 12:21 Pulse Rate 81 10/09/21 12:21 Respiratory Rate 22 10/09/21 12:21 Blood Pressure 128/61 10/09/21 12:21 Pulse Oximetry 100 10/09/21 12:21 Oxygen Delivery Method 10/09/21 12:21 GENERAL: Pale alert 76-year-old female no acute distress HEENT: Head atraumatic,EOMI, pupils reactive, face symmetric, [moist] mucous membranes CARDIOVASCULAR: Regular rate and rhythm without murmurs, rubs or gallops. RESPIRATORY: Breath sounds equal bilaterally, no wheezes rales or rhonchi. Speaks in full sentences without difficulty ABDOMEN: Soft, nontender. Normoactive bowel sounds all 4 quadrants. No guarding or rebound. EXTREMITIES: Normal range of motion, no clubbing. Bilateral +2 pitting edema Neurovascularly intact NEUROLOGICAL: Alert and oriented x4 SKIN: Warm, dry, no laceration, no petechiae, no rashes or lesions. Course Orders Ordered: ED Orders 10/09/21 12:24 XR chest 2V Stat EKG-12 Lead Stat Measure peak expiratory flow ONCE RT Consult Eval and Treat Now 10/09/21 12:42 Complete Blood Count AUTO DIFF Stat Comprehensive Metabolic Panel Stat Lactate (Lactic Acid) Stat NT-proBNP (BNP-Adult 18+) Stat Troponin & CK Cardiac Panel Stat 10/09/21 14:39 COVID19 -Nasal RAPID/Pre-Proc Stat 10/09/21 14:44 Type and Screen Stat Discontinued Medications Furosemide (Furosemide 40 Mg/4 Ml Vial) 40 mg IV NOW ONE Stop: 10/09/21 13:27 Last Admin: 10/09/21 13:46 Dose: 40 mg Documented By: SARMAD Furosemide (Furosemide 100 Mg/10 Ml Vial) 60 mg IV NOW ONE Stop: 10/09/21 14:38 Last Admin: 10/09/21 14:52 Dose: 60 mg Documented By: SARMAD Vital Signs Vital signs: Vital Signs - 8 hr 10/09/21 12:21 10/09/21 12:40 10/09/21 12:43 Temperature 97.8 F Pulse Rate 81 81 80 Respiratory Rate 22 23 Blood Pressure 128/61 Pulse Oximetry 100 98 Oxygen Delivery Method Room Air 10/09/21 12:43 10/09/21 13:00 10/09/21 13:30 Temperature Pulse Rate 81 82 Respiratory Rate 23 24 Blood Pressure 119/65 Pulse Oximetry 99 100 Oxygen Delivery Method 10/09/21 13:51 10/09/21 13:51 10/09/21 14:00 Temperature Pulse Rate 81 82 Respiratory Rate 17 26 H Blood Pressure 117/64 Pulse Oximetry 100 100 Oxygen Delivery Method 10/09/21 14:30 10/09/21 14:30 10/09/21 15:00 Temperature Pulse Rate 84 Respiratory Rate 24 Blood Pressure 126/58 L 125/68 Pulse Oximetry 100 Oxygen Delivery Method 10/09/21 15:00 10/09/21 15:30 10/09/21 15:30 Temperature Pulse Rate 85 85 Respiratory Rate 22 24 Blood Pressure 130/66 Pulse Oximetry 100 100 Oxygen Delivery Method 10/09/21 16:00 Temperature Pulse Rate 86 Respiratory Rate 25 H Blood Pressure Pulse Oximetry 100 Oxygen Delivery Method MDM - SOB/Dyspnea Lab Data Result diagrams: 10/09/21 12:42 10/09/21 12:42 Labs: Lab Results 10/09/21 10/09/21 10/09/21 Range/Units 12:42 12:42 12:42 WBC 4.5 (4.5-11.0) X10^3/uL RBC 3.88 L (4.0-5.2) X10^6/uL Hgb 7.7 L (12.0-16.0) g/dL Hct 25.2 L (36-46) % MCV 64.8 L (80-100) fL MCH 19.7 L (26-34) PG MCHC 30.4 (30-36) % RDW 18.3 H (11.6-14.8) % Plt Count 194 (150-400) X10^3/uL Neut % (Auto) Not Reportable Lymph % (Auto) Not Reportable [place] % (Auto) Not Reportable Eos % (Auto) Not Reportable Baso % (Auto) Not Reportable Lymph # (Auto) Not Reportable [place] # (Auto) Not Reportable Baso # (Auto) Not Reportable Total Counted 100 Seg Neutrophils % 88.0 H (38-70) % Lymphocytes % (Manual) 4.0 L (25-45) % Monocytes % (Manual) 8.0 (2-11) % Neutrophils # (Manual) 3960 (6380-6082) /uL Platelet Estimate Adequate on smear RBC Morphology See below Hypochromasia 1+ H Anisocytosis 1+ H Microcytosis 2+ H Ovalocytes 1+ H Sodium 135 L (137-145) mmol/L Potassium 4.5 (3.4-5.1) mmol/L Chloride 102 (98-107) mmol/L Carbon Dioxide 23 (22-32) mmol/L BUN 49 H (7-17) mg/dL Creatinine 3.14 H (0.52-1.04) mg/dL Estimated GFR 15 L (>60) mL/min BUN/Creatinine Ratio 15.6 (6-22) Glucose 104 (80-110) mg/dL Lactate 1.0 (0.7-2.1) mmol/L Calcium 8.3 L (8.4-10.2) mg/dL Total Bilirubin 0.4 (0.2-1.3) mg/dL AST 22 (14-36) IU/L ALT 10 (<35) IU/L Alkaline Phosphatase 73 (38-126) U/L Total Creatine Kinase (30-135) U/L CK-MB (CK-2) CK-MB (CK-2) Rel Index Troponin I (0.01-0.034) ng/mL NT-Pro-B Natriuret Pep 54070 H (<450) pg/mL Total Protein 6.4 (6.3-8.2) g/dL Albumin 3.6 (3.5-5.0) g/dL Globulin 2.8 (1.7-4.1) g/dL Albumin/Globulin Ratio 1.3 (1.0-2.8) Urine Color Urine Appearance Urine pH (4.5-8.0) Ur Specific [place] (1.000-1.035) Urine Protein (Negative) Urine Glucose (UA) (Negative) g/dL Urine Ketones (NEGATIVE) Urine Occult Blood (Negative) Urine Nitrate (Negative) Urine Bilirubin (NEGATIVE) Urine Urobilinogen (0.2) E.U./dL Ur Leukocyte Esterase (NEGATIVE) Urine RBC (0-5/HPF) Urine WBC (0-5/HPF) Ur Squamous Epith Cells (0-5/HPF) Ur Culture Indicated? Micro UA Comment SARS-CoV-2 (PCR) (Negative) Blood Type Antibody Screen 10/09/21 10/09/21 10/09/21 Range/Units 12:42 14:39 14:44 WBC (4.5-11.0) X10^3/uL RBC (4.0-5.2) X10^6/uL Hgb (12.0-16.0) g/dL Hct (36-46) % MCV (80-100) fL MCH (26-34) PG MCHC (30-36) % RDW (11.6-14.8) % Plt Count (150-400) X10^3/uL Neut % (Auto) Lymph % (Auto) [place] % (Auto) Eos % (Auto) Baso % (Auto) Lymph # (Auto) [place] # (Auto) Baso # (Auto) Total Counted Seg Neutrophils % (38-70) % Lymphocytes % (Manual) (25-45) % Monocytes % (Manual) (2-11) % Neutrophils # (Manual) (0972-1381) /uL Platelet Estimate RBC Morphology Hypochromasia Anisocytosis Microcytosis Ovalocytes Sodium (137-145) mmol/L Potassium (3.4-5.1) mmol/L Chloride (98-107) mmol/L Carbon Dioxide (22-32) mmol/L BUN (7-17) mg/dL Creatinine (0.52-1.04) mg/dL Estimated GFR (>60) mL/min BUN/Creatinine Ratio (6-22) Glucose (80-110) mg/dL Lactate (0.7-2.1) mmol/L Calcium (8.4-10.2) mg/dL Total Bilirubin (0.2-1.3) mg/dL AST (14-36) IU/L ALT (<35) IU/L Alkaline Phosphatase (38-126) U/L Total Creatine Kinase 25 L (30-135) U/L CK-MB (CK-2) TNP CK-MB (CK-2) Rel Index TNP Troponin I < 0.012 (0.01-0.034) ng/mL NT-Pro-B Natriuret Pep (<450) pg/mL Total Protein (6.3-8.2) g/dL Albumin (3.5-5.0) g/dL Globulin (1.7-4.1) g/dL Albumin/Globulin Ratio (1.0-2.8) Urine Color Urine Appearance Urine pH (4.5-8.0) Ur Specific [place] (1.000-1.035) Urine Protein (Negative) Urine Glucose (UA) (Negative) g/dL Urine Ketones (NEGATIVE) Urine Occult Blood (Negative) Urine Nitrate (Negative) Urine Bilirubin (NEGATIVE) Urine Urobilinogen (0.2) E.U./dL Ur Leukocyte Esterase (NEGATIVE) Urine RBC (0-5/HPF) Urine WBC (0-5/HPF) Ur Squamous Epith Cells (0-5/HPF) Ur Culture Indicated? Micro UA Comment SARS-CoV-2 (PCR) Positive H (Negative) Blood Type O Positive Antibody Screen Negative 10/09/21 Range/Units 16:00 WBC (4.5-11.0) X10^3/uL RBC (4.0-5.2) X10^6/uL Hgb (12.0-16.0) g/dL Hct (36-46) % MCV (80-100) fL MCH (26-34) PG MCHC (30-36) % RDW (11.6-14.8) % Plt Count (150-400) X10^3/uL Neut % (Auto) Lymph % (Auto) [place] % (Auto) Eos % (Auto) Baso % (Auto) Lymph # (Auto) [place] # (Auto) Baso # (Auto) Total Counted Seg Neutrophils % (38-70) % Lymphocytes % (Manual) (25-45) % Monocytes % (Manual) (2-11) % Neutrophils # (Manual) (3816-2985) /uL Platelet Estimate RBC Morphology Hypochromasia Anisocytosis Microcytosis Ovalocytes Sodium (137-145) mmol/L Potassium (3.4-5.1) mmol/L Chloride (98-107) mmol/L Carbon Dioxide (22-32) mmol/L BUN (7-17) mg/dL Creatinine (0.52-1.04) mg/dL Estimated GFR (>60) mL/min BUN/Creatinine Ratio (6-22) Glucose (80-110) mg/dL Lactate (0.7-2.1) mmol/L Calcium (8.4-10.2) mg/dL Total Bilirubin (0.2-1.3) mg/dL AST (14-36) IU/L ALT (<35) IU/L Alkaline Phosphatase (38-126) U/L Total Creatine Kinase (30-135) U/L CK-MB (CK-2) CK-MB (CK-2) Rel Index Troponin I (0.01-0.034) ng/mL NT-Pro-B Natriuret Pep (<450) pg/mL Total Protein (6.3-8.2) g/dL Albumin (3.5-5.0) g/dL Globulin (1.7-4.1) g/dL Albumin/Globulin Ratio (1.0-2.8) Urine Color Yellow Urine Appearance Clear Urine pH 6.5 (4.5-8.0) Ur Specific [place] 1.010 (1.000-1.035) Urine Protein Trace H (Negative) Urine Glucose (UA) Negative (Negative) g/dL Urine Ketones Negative (NEGATIVE) Urine Occult Blood Trace-intact (Negative) Urine Nitrate Positive H (Negative) Urine Bilirubin Negative (NEGATIVE) Urine Urobilinogen 0.2 (0.2) E.U./dL Ur Leukocyte Esterase 2+ H (NEGATIVE) Urine RBC 1-5/hpf (0-5/HPF) Urine WBC 10-30/hpf H (0-5/HPF) Ur Squamous Epith Cells 0-1 /hpf (0-5/HPF) Ur Culture Indicated? Specimen cultured Micro UA Comment Wbc clumps present SARS-CoV-2 (PCR) (Negative) Blood Type Antibody Screen Imaging Data Chest x-ray: Radiologist's Impression: XRay Report Signed Patient: Frances Foley MR#: [id number] : 1945 Acct:[id number] Age/Sex: 76 / F Date of Service: 10/09/21 Loc: ED Accession Number: [id number] ?? Procedure: XR chest 2V Ordering Provider: Corin Parks D.O. PROCEDURE:? XR CHEST 2V ? INDICATIONS:? shortness of breath ? TECHNIQUE:? 2 views of the chest were acquired.? ? COMPARISON:? [facility], CR, XR CHEST 1V, 07/27/2021, 8:20.? [facility], CR, XR CHEST 1V, 09/18/2021, 10:18. ? FINDINGS:? ? Surgical changes and devices:? None.? ? Lungs and pleura:? There is a small left pleural effusion.? The right lung is clear.? No pulmonary consolidation. ? Mediastinum:? Mediastinal contours are normal.? Heart size is normal.? ? Bones and chest wall:? No suspicious bony abnormalities.? Soft tissues appear unremarkable.? ? IMPRESSION:? Small left pleural effusion. ? ? Dictated by: Miriam Choudhary M.D. on 10/09/2021 at 13:08 ? ? MDM Narrative Medical decision making narrative: Patient presents with COVID symptoms positive COVID test increasing shortness of breath. She does have a history of congestive heart failure she has bilateral lower extremity edema with orthopnea BNP is elevated at 34,900 slightly worse than when she was here on September 18. She was admitted [place] [address] [place]. She is also extremely anemic with a hemoglobin of 7.7 fairly stable from September 18. No active bleeding but does it appear quite pale. She received 40 mg of Lasix without any improvement. The Lasix dose of 60 mg patient finally did urine Dr. Brown, accepts patient. Discharge Plan Departure Patient Disposition: Admitted as Observation Clinical Impression: Anemia, CHF (congestive heart failure), COVID-19 Admit Date/Time: 10/09/21 16:00 Admit Provider: Funmi Brown
[2021-10-09 13:23] LABS: Alanine Aminotransferase 10 IU/L (<35); Albumin 3.6 g/dL (3.5-5.0); Albumin Globulin Ratio 1.3 (1.0-2.8); Alkaline Phosphatase 73 U/L (38-126); Aspartate Aminotransferase 22 IU/L (14-36); BUN Creatinine Ratio 15.6 (6-22); Bilirubin Total 0.4 mg/dL (0.2-1.3); Blood Urea Nitrogen 49 mg/dL (7-17); Calcium 8.3 mg/dL (8.4-10.2); Carbon Dioxide 23 mmol/L (22-32); Chloride 102 mmol/L (98-107); Creatine Kinase 25 U/L (30-135); Estimated Glomerular Filt Rate 15 mL/min (>60); Globulin 2.8 g/dL (1.7-4.1); Glucose 104 mg/dL (80-110); HEMOLYSIS < 15 (0-50); Potassium 4.5 mmol/L (3.4-5.1); Sodium 135 mmol/L (137-145); Total Protein 6.4 g/dL (6.3-8.2)
[2021-10-09 13:33] LABS: Anisocytosis 1+; Hypochromasia 1+; Microcytosis 2+; Ovalocytes 1+; Platelet Estimate Adequate on smear
[2021-10-09 13:35] LABS: Troponin I < 0.012 ng/mL (0.01-0.034)
[2021-10-09] MEDS: FUROSEMIDE 40 MG/4 ML VIAL IV (13:46)
[2021-10-09 13:48] LABS: NT-proBNP (BNP-Adult 18+) 34900 pg/mL (<450)
[2021-10-09] MEDS: FUROSEMIDE 100 MG/10 ML VIAL 60 MG IV (14:52)
[2021-10-09 15:07] LABS: Neutrophils Absolute Manual 3960 /uL (3000-5900); Total Cells Counted 100
[2021-10-09 15:12] LABS: COVID19 -Nasal RAPID POSITIVE (Negative)
[2021-10-09 18:11] LABS: Appearance Urine UA CLEAR; Bilirubin Urine UA NEGATIVE (NEGATIVE); Color Urine UA YELLOW; Glucose Urine UA NEGATIVE (Negative); Ketones Urine UA NEGATIVE (NEGATIVE); Leukocyte Esterase Urine UA 2+ (NEGATIVE); Nitrite Urine UA POSITIVE (Negative); Occult Blood Urine UA TRACE-INTACT (Negative); Protein Urine UA TRACE (Negative); Urobilinogen Urine UA 0.2 E.U./dL (0.2)
[2021-10-09 18:17] LABS: pH Urine UA 6.5 (4.5-8.0)
[2021-10-09 19:26] LABS: Culture Indicated Urine Specimen Cultured; RBC Urine 1-5/HPF (0-5/HPF); Squamous Epithelial Cell Urine 0-1 /HPF (0-5/HPF); Urine Comments WBC CLUMPS PRESENT; WBC Urine 10-30/HPF (0-5/HPF)
--- NOTE | 2021-10-09 20:11 | PM.HP.1 ---
History of Present Illness History of Present Illness Date Patient Seen: 10/09/21 Time Patient Seen: 20:00 Chief complaint: COVID+, Underlying Health Issues, Ankle Swelling Narrative: Ms. Foley is a 76W with PMH CHFrEF, CKD stage 4, DM, HTN, CAD with significant LAD per notes not amenable to stenting, microcytic anemia who presents with shortness of breath. She states she started feeling ill a couple days ago and initially tested negative but then tested positive. She had cough, sore throat. She is coughing up sputum. She then developed exertional dyspnea and orthopnea, as well as lower extremity edema. She did get covid vaccine. She presented to the ED workup was done, vitals notable for afebrile, tachypnea, sats 100% on room air. Labs notable for WBC 4.5, hgb 7.7, plts 194. BUN 49, Creatinine 3.14. Lactate 1.0. BNP 91137. Trop negative. COVID positive. UA showed 2+ leuk esterase, 10-30 wbc. Chest xray showed small left plueral effusion. She was given IV lasix and admitted for further treatment. Patient History Medical History Acute pancreatitis CHF (congestive heart failure) Cognitive impairment Major depression in partial remission Myocardial infarction Osteoarthritis Plaque psoriasis Type 2 diabetes mellitus Surgical History History of appendectomy History of bilateral hip replacements History of cholecystectomy History of left knee surgery History of surgery on right wrist Family & Social History Family History Mother Congestive heart failure Brother Congestive heart failure Social History: household members family,children Prior Living Arrangements House Safety & Behavioral: Feels Safe in Current Yes Environment Been Physically Hurt or No Threatened By a Person Tobacco & Substance use: Smoking Status Never smoker alcohol intake never Substance Use Type does not use Meds Home Medications and Allergies Home Medications Medication Instructions Recorded Confirmed Type atorvastatin 40 mg tablet 40 mg PO BEDTIME #90 tabs 11/28/20 10/09/21 Rx isosorbide mononitrate 60 mg 60 mg PO QAM 06/05/21 10/09/21 History tablet,extended release 24 hr ascorbic acid (vitamin C) 500 mg 500 mg PO QAM 07/25/21 10/09/21 History chewable tablet clopidogrel 75 mg tablet 75 mg PO QAM 07/25/21 10/09/21 History buforcrxrrxx-lqndqyhl-dazcyr tablet 1 tab PO QAM 07/25/21 10/09/21 History lorazepam 0.5 mg tablet (Ativan) 0.5 mg PO TID PRN leg spasm #10 09/18/21 10/09/21 Rx tabs cholecalciferol (vitamin D3) 25 25 mcg PO BID #180 tabs 09/22/21 10/09/21 Rx mcg (1,000 unit) tablet colestipol 1 gram tablet 1 g PO BID #180 tabs 09/22/21 10/09/21 Rx docusate sodium 100 mg capsule 100 mg PO QAM #90 caps 09/22/21 10/09/21 Rx famotidine 40 mg tablet 40 mg PO QAM #90 tabs 09/22/21 10/09/21 Rx pantoprazole 40 mg tablet,delayed 40 mg PO QAM #90 tabs 09/22/21 10/09/21 Rx release sertraline 50 mg tablet 50 mg PO QAM #90 tabs 09/22/21 10/09/21 Rx torsemide 40 mg tablet 40 mg PO BID 09/28/21 10/09/21 History carvedilol 25 mg tablet 25 mg PO BID 10/09/21 10/09/21 History hydromorphone 2 mg tablet 2 mg PO BID PRN Pain (Scale Score 10/09/21 10/09/21 History 7-10) linagliptin 5 mg tablet (Tradjenta) 5 mg PO DAILY 10/09/21 10/09/21 History Allergies Allergy/AdvReac Type Severity Reaction Status Date / Time dimenhydrinate Allergy Verified 10/09/21 12:23 [From Dramamine] diphenhydramine AdvReac Verified 10/09/21 12:23 [From Benadryl] hydrocodone AdvReac Verified 10/09/21 12:23 Review of Systems Review of Systems Narrative: 14 systems reviewed and negative aside from what is noted in HPI Exam Vital Signs (past 8 hours): - 10/09/21 18:30 10/09/21 18:31 10/09/21 18:31 Temperature Pulse Rate 92 H 92 H Respiratory Rate 25 H 26 H Blood Pressure 134/73 Pulse Oximetry 100 100 Oxygen Flow Rate 10/09/21 19:00 10/09/21 19:01 10/09/21 19:01 Temperature Pulse Rate 90 90 Respiratory Rate 23 23 Blood Pressure 148/66 H Pulse Oximetry 99 99 Oxygen Flow Rate 10/09/21 21:30 10/09/21 22:30 10/10/21 01:00 Temperature 98.4 F 96.8 F L Pulse Rate 68 68 79 Respiratory Rate 20 18 Blood Pressure 148/66 H 108/49 L Pulse Oximetry 100 97 Oxygen Flow Rate 0 0 Oxygen Delivery Method Room Air Oxygen Flow Rate 0 Narrative Exam Narrative: GEN: no acute distress HEENT: moist mucous membranes, PERRL NECK: trachea midline, no JVD CV: regular rate and rhyth, no murmurs PULM: crackles at bilateral bases ABD: soft, nontender, nondistedned, no organomegaly, normal bowel sounds EXT: warm and well perfused with edema noted NEURO: awake, alert, oriented, no focal deficits Objective Labs Result Diagrams: 10/09/21 12:42 10/09/21 12:42 Labs: Laboratory Results - last 24 hr 10/09/21 10/09/21 10/09/21 12:42 12:42 12:42 WBC 4.5 RBC 3.88 L Hgb 7.7 L Hct 25.2 L MCV 64.8 L MCH 19.7 L MCHC 30.4 RDW 18.3 H Plt Count 194 Neut % (Auto) Not Reportable Lymph % (Auto) Not Reportable [place] % (Auto) Not Reportable Eos % (Auto) Not Reportable Baso % (Auto) Not Reportable Lymph # (Auto) Not Reportable [place] # (Auto) Not Reportable Baso # (Auto) Not Reportable Total Counted 100 Seg Neutrophils % 88.0 H Lymphocytes % (Manual) 4.0 L Monocytes % (Manual) 8.0 Neutrophils # (Manual) 3960 Platelet Estimate Adequate on smear RBC Morphology See below Hypochromasia 1+ H Anisocytosis 1+ H Microcytosis 2+ H Ovalocytes 1+ H Sodium 135 L Potassium 4.5 Chloride 102 Carbon Dioxide 23 BUN 49 H Creatinine 3.14 H Estimated GFR 15 L BUN/Creatinine Ratio 15.6 Glucose 104 Lactate 1.0 Calcium 8.3 L Total Bilirubin 0.4 AST 22 ALT 10 Alkaline Phosphatase 73 Total Creatine Kinase CK-MB (CK-2) CK-MB (CK-2) Rel Index Troponin I NT-Pro-B Natriuret Pep 92318 H Total Protein 6.4 Albumin 3.6 Globulin 2.8 Albumin/Globulin Ratio 1.3 Urine Color Urine Appearance Urine pH Ur Specific [place] Urine Protein Urine Glucose (UA) Urine Ketones Urine Occult Blood Urine Nitrate Urine Bilirubin Urine Urobilinogen Ur Leukocyte Esterase Urine RBC Urine WBC Ur Squamous Epith Cells Urine Bacteria Ur Culture Indicated? Micro UA Comment SARS-CoV-2 (PCR) Blood Type Antibody Screen 10/09/21 10/09/21 10/09/21 12:42 14:39 14:44 WBC RBC Hgb Hct MCV MCH MCHC RDW Plt Count Neut % (Auto) Lymph % (Auto) [place] % (Auto) Eos % (Auto) Baso % (Auto) Lymph # (Auto) [place] # (Auto) Baso # (Auto) Total Counted Seg Neutrophils % Lymphocytes % (Manual) Monocytes % (Manual) Neutrophils # (Manual) Platelet Estimate RBC Morphology Hypochromasia Anisocytosis Microcytosis Ovalocytes Sodium Potassium Chloride Carbon Dioxide BUN Creatinine Estimated GFR BUN/Creatinine Ratio Glucose Lactate Calcium Total Bilirubin AST ALT Alkaline Phosphatase Total Creatine Kinase 25 L CK-MB (CK-2) TNP CK-MB (CK-2) Rel Index TNP Troponin I < 0.012 NT-Pro-B Natriuret Pep Total Protein Albumin Globulin Albumin/Globulin Ratio Urine Color Urine Appearance Urine pH Ur Specific [place] Urine Protein Urine Glucose (UA) Urine Ketones Urine Occult Blood Urine Nitrate Urine Bilirubin Urine Urobilinogen Ur Leukocyte Esterase Urine RBC Urine WBC Ur Squamous Epith Cells Urine Bacteria Ur Culture Indicated? Micro UA Comment SARS-CoV-2 (PCR) Positive H Blood Type O Positive Antibody Screen Negative 10/09/21 16:00 WBC RBC Hgb Hct MCV MCH MCHC RDW Plt Count Neut % (Auto) Lymph % (Auto) [place] % (Auto) Eos % (Auto) Baso % (Auto) Lymph # (Auto) [place] # (Auto) Baso # (Auto) Total Counted Seg Neutrophils % Lymphocytes % (Manual) Monocytes % (Manual) Neutrophils # (Manual) Platelet Estimate RBC Morphology Hypochromasia Anisocytosis Microcytosis Ovalocytes Sodium Potassium Chloride Carbon Dioxide BUN Creatinine Estimated GFR BUN/Creatinine Ratio Glucose Lactate Calcium Total Bilirubin AST ALT Alkaline Phosphatase Total Creatine Kinase CK-MB (CK-2) CK-MB (CK-2) Rel Index Troponin I NT-Pro-B Natriuret Pep Total Protein Albumin Globulin Albumin/Globulin Ratio Urine Color Yellow Urine Appearance Clear Urine pH 6.5 Ur Specific [place] 1.010 Urine Protein Trace H Urine Glucose (UA) Negative Urine Ketones Negative Urine Occult Blood Trace-intact Urine Nitrate Positive H Urine Bilirubin Negative Urine Urobilinogen 0.2 Ur Leukocyte Esterase 2+ H Urine RBC 1-5/hpf Urine WBC 10-30/hpf H Ur Squamous Epith Cells 0-1 /hpf Urine Bacteria Many (>30) H Ur Culture Indicated? Specimen cultured Micro UA Comment Wbc clumps present SARS-CoV-2 (PCR) Blood Type Antibody Screen Assessment & Plan Assessment & Plan narrative: Ms. Foley is a 76W with PMH CHFrEF, CKD stage 4, DM who presents with shortness of breath 1. Acute respiratory distress -suspect secondary to CHF and COVID -COVID positive -BNP elevated at 34.9k -cxray shows small pleural effusion -troponin negative -not requiring oxygen, dexamethasone and remdesivir not indicated -ordered for IV lasix to diurese -ordered low salt diet -monitor I/Os 2. Presumed UTI -UA positive -urine culture pending -ceftriaxone ordered 3. CHFrEF, possible acute decompensation with history of CAD -last EF appears to be 20-25% with multiple akinetic, and hypokinetic, worse than prior -cath in 2019 showed diffuse LAD disease not amenable to stenting -continue coreg -continue statin -would suspect this admission may be related to worsening cardiac function in setting of known disease -per last discharge was not in guanako-inhibitor due to kidney function 4. CKD stage 4 -creatinine on admission at 3.1 -near baseline with previous creatinine being high 2s to 3.0 -still urinating well -monitor creatinine closely with diuresis 5. Type 2 DM -hold oral medications -place on insulin sliding scale 6. Microcytic anemia -chronic, appears near baseline -check iron studies CODE: Full Proxy: Mago Giang, daughter I have utilized all available resources to reconcile the patient's home medications Time Spent With Patient Critical Care time: I spent a total of [] minutes of critical care time on this patient's care today; this time is exclusive of procedural time. Quality VTE Deep Vein Thrombosis/Pulmonary Embolism Present on Admission: No MIPS - Admit I confirm the patient?s Advance Care Plan is present, Code status is documented, Surrogate decision maker is in patient?s record [If Yes, STOP here]: Yes
[2021-10-09] MEDS: FUROSEMIDE 100 MG/10 ML VIAL 80 MG IV (22:28)
[2021-10-09] MEDS: ONDANSETRON 4 MG/2 ML INJ IV (22:29)
[2021-10-09] MEDS: carvediloL 12.5 MG TABLET 25 MG PO (22:30)
[2021-10-09] MEDS: HEPARIN 5,000 UNIT/ML VIAL 5000 UNIT SUBCUT (22:31)
[2021-10-09 22:36] LABS: Bacteria Urine Many (>30)
[2021-10-09] MEDS: ACETAMINOPHEN 325 MG TABLET 650 MG PO (22:45)
[2021-10-10] VITALS (17 sets, daily range): BP systolic 99–120; BP diastolic 49–66; PULSE 70–88; RESP 16–20; TEMP 36–37.1; O2SAT 97–100
[2021-10-10] MEDS: cefTRIAXone 1,000 MG in SODIUM CHLORIDE 0.9% 100 ML 200 MG IV (02:57)
[2021-10-10 06:31] LABS: Add Manual Diff / Slide Review NO; Basophils Absolute Auto 0 /uL (0-100); Basophils Percent Auto 0.7 % (0-2); Eosinophils Absolute Auto 0 /uL (0-450); Hematocrit 23.6 % (36-46); Hemoglobin 7.1 g/dL (12.0-16.0); Lymphocytes Absolute Auto 500 /uL (1100-4500); Lymphocytes Percent Auto 14.6 % (25-40); Mean Corpuscular HGB Conc 29.9 % (30-36); Mean Corpuscular Hemoglobin 19.5 PG (26-34); Mean Corpuscular Volume 65.1 fL (80-100); Monocytes Absolute Auto 500 /uL (0-900); Neutrophils Absolute Auto 2500 /uL (1500-7000); Neutrophils Percent Auto 70.7 % (50-75); Platelet Count 187 X10^3/uL (150-400); Red Blood Cell Count 3.63 X10^6/uL (4.0-5.2); Red Cell Distribution Width 18.2 % (11.6-14.8); White Blood Cell Count 3.6 X10^3/uL (4.5-11.0)
[2021-10-10 06:49] LABS: Anisocytosis 1+; Hypochromasia 1+; Microcytosis 2+; Poikilocytosis 1+
[2021-10-10 06:50] LABS: Ovalocytes 1+; Schistocytes 1+
[2021-10-10 06:53] LABS: Blood Urea Nitrogen 48 mg/dL (7-17); Calcium 8.1 mg/dL (8.4-10.2); Carbon Dioxide 22 mmol/L (22-32); Chloride 104 mmol/L (98-107); Estimated Glomerular Filt Rate 14 mL/min (>60); Glucose 95 mg/dL (80-110); HEMOLYSIS < 15 (0-50); Potassium 4.5 mmol/L (3.4-5.1); Sodium 134 mmol/L (137-145)
[2021-10-10] MEDS: carvediloL 12.5 MG TABLET 25 MG PO (09:06)
[2021-10-10] MEDS: SERTRALINE 50 MG TABLET PO (09:06)
[2021-10-10] MEDS: ISOSORBIDE MONONITRATE ER 30 MG TABLET 60 MG PO (09:07)
[2021-10-10] MEDS: HEPARIN 5,000 UNIT/ML VIAL 5000 UNIT SUBCUT ×2 (09:07→20:44)
[2021-10-10] MEDS: FUROSEMIDE 100 MG/10 ML VIAL 80 MG IV ×2 (09:07→20:43)
[2021-10-10] MEDS: CLOPIDOGREL 75 MG TABLET PO (09:07)
[2021-10-10 12:23] LABS: HEMOLYSIS < 15 (0-50); Iron 20 ug/dL (37-170)
[2021-10-10 12:33] LABS: Percent Iron Saturation 5 % (15-50); Total Iron Binding Capacity 396 ug/dL (265-497); Transferrin 298 mg/dL (206-381)
--- NOTE | 2021-10-10 14:33 | CM.DANOTE ---
YEISON Note: Payor: Medicare PCP: MD [place] Pt is a 76 year old pt who was admitted for +COVID and Ankle swelling. Pt presented with shortness of breath and microcytic anemia. Pt stated she has a cough and sore throat. Pt admitted for further workup and observation. UA was positive for UTI and culture pending. ABX ordered. Pt has stage 4 CKD. Pt has Type 2 DM and is currently on insulin sliding scale. Labs continuing to be monitored. [facility] attempted to contact pt, however, no answer on patient phone and DCP unable to enter room due to covid restrictions. DCP contacted Vivian, pt daughter, to inquire about pt baseline function. Per Vivian, pt live with her and and Griseldafers two children in a 1 story home. Pt has a walker that she uses to get around with daily. Per Vivian, pt has CKD and her tire manager is Dr. Ron Florez and her physically impaired teacher is Dr. Smith. Vivian states that pt was complaining of burning sore throat and had a lot of ankle swelling. Vivian denies pt on dialysis. Vivian also inquiring about an update about pt status. [facility] updated her to the best of her ability per MD notes. Vivian requesting to be contacted for any updates or status change in pt care. Vivian states that when she is ready for discharge, she will come home with her. Contact information provided to Vivian and instructed her to call back with any other questions that may arise. P: Once pt is medically stable for discharge, pt to return home with Vivian via Vivian V. Iris Durham RN/YEISON Discharge Planning/Care Management CM Discharge Assessment Start: 10/10/21 14:31 Freq: Status: Active Protocol: Document 10/10/21 14:31 BOUCHRA (Rec: 10/10/21 14:32 BOUCHRA [id number]) Discharge Planning Assessment Assigned Robot Programmer Iris Durham RN/YEISON Advance Directives? Yes Advance Directives on File No History Provided By Patient,Medical Record Prior Living Arrangements House Household Members family,children Comment Lives with daughter and her two children Type of transporation used prior to Relies on Others admit Independent with ADL's Yes Comment Patient uses devices: Cane, FWW or Wheel chair as needed Barriers to Discharge No Discharge Plan Home Transportation Arrangement Daughter POV Referrals Initiated None needed Additional Comment at this time Comment Unable to due to COVID restrictions Review Status In Process Please Provide Date Initial DC 10/10/21 Assessment Was Performed Next Review Type Continued Stay Review
--- NOTE | 2021-10-10 15:55 | PM.PN.1 ---
Subjective Subjective Interval history: Hospice follow up visit. History of present illness on presentation is as follows: Ms. Foley is a 76W with PMH CHFrEF, CKD stage 4, DM, HTN, CAD with significant LAD per notes not amenable to stenting, microcytic anemia who presents with shortness of breath. She states she started feeling ill a couple days ago and initially tested negative but then tested positive. She had cough, sore throat. She is coughing up sputum. She then developed exertional dyspnea and orthopnea, as well as lower extremity edema. She did get covid vaccine. She presented to the ED workup was done, vitals notable for afebrile, tachypnea, sats 100% on room air. Labs notable for WBC 4.5, hgb 7.7, plts 194. BUN 49, Creatinine 3.14. Lactate 1.0. BNP 82161. Trop negative. COVID positive. UA showed 2+ leuk esterase, 10-30 wbc. Chest xray showed small left plueral effusion. She was given IV lasix and admitted for further treatment. Exam Vital Signs (past 8 hours): - 10/10/21 09:06 10/10/21 09:38 10/10/21 08:00 Temperature 97.7 F 98.0 F Pulse Rate 84 83 Respiratory Rate 16 17 Blood Pressure 99/49 L 110/62 116/52 L Pulse Oximetry 99 98 Oxygen Delivery Method Oxygen Flow Rate 0 10/10/21 09:00 10/10/21 15:25 Temperature 98.7 F Pulse Rate 75 Respiratory Rate 16 Blood Pressure 110/54 L Pulse Oximetry 99 98 Oxygen Delivery Method Room Air Oxygen Flow Rate 0 Oxygen Delivery Method Room Air Oxygen Flow Rate 0 Narrative Exam Narrative: GEN: no acute distress, resting comfortably, generally pale HEENT: moist mucous membranes, PERRL NECK: trachea midline, no JVD, no palpable neck nodes CV: regular rate and rhyth, no murmurs PULM: Very minimal crackles at bases, no wheezing ABD: No masses organomegaly. Soft nontender bowel sounds normal. EXT: warm and well perfused with edema. NEURO: awake, alert, oriented, no focal deficits however sluggish in her thinking. Objective Labs Result Diagrams: 10/10/21 05:55 10/10/21 05:55 Labs: Laboratory Results - last 24 hr 10/09/21 10/09/21 10/10/21 14:44 16:00 05:55 WBC 3.6 L RBC 3.63 L Hgb 7.1 L Hct 23.6 L MCV 65.1 L MCH 19.5 L MCHC 29.9 L RDW 18.2 H Plt Count 187 Neut % (Auto) 70.7 Lymph % (Auto) 14.6 L [place] % (Auto) 14.0 Eos % (Auto) 0.0 L Baso % (Auto) 0.7 Neut # (Auto) 2500 Lymph # (Auto) 500 L [place] # (Auto) 500 Eos # (Auto) 0 Baso # (Auto) 0 RBC Morphology See below Hypochromasia 1+ H Poikilocytosis 1+ H Anisocytosis 1+ H Microcytosis 2+ H Ovalocytes 1+ H Schistocytes 1+ H Sodium Potassium Chloride Carbon Dioxide BUN Creatinine Estimated GFR BUN/Creatinine Ratio Glucose Calcium Iron TIBC % Saturation Transferrin Urine Color Yellow Urine Appearance Clear Urine pH 6.5 Ur Specific [place] 1.010 Urine Protein Trace H Urine Glucose (UA) Negative Urine Ketones Negative Urine Occult Blood Trace-intact Urine Nitrate Positive H Urine Bilirubin Negative Urine Urobilinogen 0.2 Ur Leukocyte Esterase 2+ H Urine RBC 1-5/hpf Urine WBC 10-30/hpf H Ur Squamous Epith Cells 0-1 /hpf Urine Bacteria Many (>30) H Ur Culture Indicated? Specimen cultured Micro UA Comment Wbc clumps present Blood Type O Positive Antibody Screen Negative 10/10/21 10/10/21 05:55 05:55 WBC RBC Hgb Hct MCV MCH MCHC RDW Plt Count Neut % (Auto) Lymph % (Auto) [place] % (Auto) Eos % (Auto) Baso % (Auto) Neut # (Auto) Lymph # (Auto) [place] # (Auto) Eos # (Auto) Baso # (Auto) RBC Morphology Hypochromasia Poikilocytosis Anisocytosis Microcytosis Ovalocytes Schistocytes Sodium 134 L Potassium 4.5 Chloride 104 Carbon Dioxide 22 BUN 48 H Creatinine 3.20 H Estimated GFR 14 L BUN/Creatinine Ratio 15.0 Glucose 95 Calcium 8.1 L Iron 20 L TIBC 396 % Saturation 5 L Transferrin 298 Urine Color Urine Appearance Urine pH Ur Specific [place] Urine Protein Urine Glucose (UA) Urine Ketones Urine Occult Blood Urine Nitrate Urine Bilirubin Urine Urobilinogen Ur Leukocyte Esterase Urine RBC Urine WBC Ur Squamous Epith Cells Urine Bacteria Ur Culture Indicated? Micro UA Comment Blood Type Antibody Screen REPLACED BY [facility] Medical History Acute pancreatitis CHF (congestive heart failure) Cognitive impairment Major depression in partial remission Myocardial infarction Osteoarthritis Plaque psoriasis Type 2 diabetes mellitus Surgical History History of appendectomy History of bilateral hip replacements History of cholecystectomy History of left knee surgery History of surgery on right wrist Family History Mother Congestive heart failure Brother Congestive heart failure Social History household members: family and children Smoking Status: Never smoker alcohol intake: never Assessment & Plan Assessment & Plan narrative: Ms. Foley is a 76W with PMH CHFrEF, CKD stage 4, DM who presented with shortness of breath 1. Acute respiratory distress-this is resolved and not requiring O2 supplementation at this time. Suspect secondary to CHF and COVID COVID positive BNP elevated at 34.9k cxray shows small pleural effusion troponin negative not requiring oxygen, dexamethasone and remdesivir not indicated ordered for IV lasix to diurese, current 80 mg IV every 12 hours. Continue to monitor to determine when to transition to oral medications. on low salt diet monitoring I/Os 2. Presumed UTI UA positive Full urine culture pending, preliminary shows Gram-positive bacilli Treating with ceftriaxone. 3. CHFrEF, possible acute decompensation with history of CAD, repeat echo pending. last EF appears to be 20-25% with multiple akinetic, and hypokinetic, worse than prior cath in 2019 showed diffuse LAD disease not amenable to stenting continue coreg continue statin would suspect this admission may be related to worsening cardiac function in setting of known disease per last discharge was not in guanako-inhibitor due to kidney function 4. CKD stage 4 creatinine on admission at 3.1, increased to 3.2 today near baseline with previous creatinine being high 2s to 3.0 Urination remains good l Continue to monitor creatinine closely with diuresis 5. Type 2 DM hold oral medications place on insulin sliding scale Assess hemoglobin A1c 6. Microcytic anemia -chronic, appears slowly decreasing over the last several months. Based on being sick it would be of benefit to give a transfusion. This has been ordered. -iron studies show iron deficiency 7. Low iron and low % saturation consistent with iron deficiency. Replace. 8. Renal failure. Chronic stage 4-5. Continue to monitor. CODE: Message And Delivery Service Pricer Spent With Patient Critical Care time: I spent a total of [] minutes of critical care time on this patient's care today; this time is exclusive of procedural time. Quality VTE Deep Vein Thrombosis/Pulmonary Embolism Present on Admission: No
[2021-10-10] MEDS: FERROUS SULFATE 325 MG TABLET PO (17:39)
[2021-10-11] VITALS (9 sets, daily range): BP systolic 108–149; BP diastolic 69–83; PULSE 77–83; RESP 16–18; TEMP 36.2–36.7; O2SAT 98–100
[2021-10-11] MEDS: cefTRIAXone 1,000 MG in SODIUM CHLORIDE 0.9% 100 ML 200 MG IV (02:58)
[2021-10-11 06:46] LABS: Alanine Aminotransferase 10 IU/L (<35); Albumin 3.3 g/dL (3.5-5.0); Albumin Globulin Ratio 1.2 (1.0-2.8); Alkaline Phosphatase 72 U/L (38-126); Aspartate Aminotransferase 24 IU/L (14-36); Bilirubin Total 0.2 mg/dL (0.2-1.3); Blood Urea Nitrogen 49 mg/dL (7-17); Carbon Dioxide 23 mmol/L (22-32); Chloride 101 mmol/L (98-107); Estimated Glomerular Filt Rate 15 mL/min (>60); Globulin 2.7 g/dL (1.7-4.1); Glucose 90 mg/dL (80-110); HEMOLYSIS < 15 (0-50); Potassium 4.7 mmol/L (3.4-5.1); Sodium 133 mmol/L (137-145)
[2021-10-11 06:47] LABS: Add Manual Diff / Slide Review NO; Basophils Absolute Auto 0 /uL (0-100); Basophils Percent Auto 0.5 % (0-2); Eosinophils Absolute Auto 0 /uL (0-450); Hematocrit 32.9 % (36-46); Hemoglobin 10.2 g/dL (12.0-16.0); Lymphocytes Absolute Auto 800 /uL (1100-4500); Lymphocytes Percent Auto 14.5 % (25-40); Mean Corpuscular HGB Conc 30.9 % (30-36); Mean Corpuscular Hemoglobin 21.4 PG (26-34); Mean Corpuscular Volume 69.3 fL (80-100); Monocytes Absolute Auto 800 /uL (0-900); Monocytes Percent Auto 13.9 % (3-14); Neutrophils Absolute Auto 4000 /uL (1500-7000); Neutrophils Percent Auto 71.1 % (50-75); Platelet Count 209 X10^3/uL (150-400); Red Blood Cell Count 4.74 X10^6/uL (4.0-5.2); Red Cell Distribution Width 22.3 % (11.6-14.8); White Blood Cell Count 5.6 X10^3/uL (4.5-11.0)
[2021-10-11 07:13] LABS: Anisocytosis 2+; Hypochromasia 1+; Microcytosis 2+
[2021-10-11 07:14] LABS: Ovalocytes 1+
[2021-10-11 07:15] LABS: Poikilocytosis 2+
[2021-10-11] MEDS: ISOSORBIDE MONONITRATE ER 30 MG TABLET 60 MG PO (08:25)
[2021-10-11] MEDS: SERTRALINE 50 MG TABLET PO (08:25)
[2021-10-11] MEDS: HEPARIN 5,000 UNIT/ML VIAL 5000 UNIT SUBCUT ×2 (08:26→22:05)
[2021-10-11] MEDS: CLOPIDOGREL 75 MG TABLET PO (08:26)
[2021-10-11] MEDS: FERROUS SULFATE 325 MG TABLET PO ×2 (08:26→17:11)
[2021-10-11] MEDS: carvediloL 12.5 MG TABLET 25 MG PO ×2 (08:26→22:04)
[2021-10-11] MEDS: FUROSEMIDE 100 MG/10 ML VIAL 80 MG IV (09:28)
--- NOTE | 2021-10-11 17:10 | P.PN_ITS ---
Exam Vital Signs (past 8 hours): - 10/11/21 13:50 Temperature 98.0 F Pulse Rate 77 Respiratory Rate 17 Blood Pressure 121/69 Pulse Oximetry 98 Oxygen Flow Rate 0 Oxygen Delivery Method Room Air Oxygen Flow Rate 0 Narrative Exam Narrative: GEN: no acute distress, resting comfortably, still generally pale HEENT: moist mucous membranes, PERRL NECK: trachea midline, no JVD, no palpable neck nodes CV: regular rate and rhyth, no murmurs PULM:? Very occasional minimal crackles at bases, no wheezing ABD:? No masses organomegaly.? Soft nontender bowel sounds normal. EXT: warm and well perfused with edema. NEURO: awake, alert, oriented, no focal deficits however sluggish in her thinking. Objective Labs Result Diagrams: 10/11/21 06:20 10/11/21 06:20 Labs: Laboratory Results - last 24 hr 10/09/21 10/11/21 10/11/21 14:44 06:20 06:20 WBC 5.6 D RBC 4.74 Hgb 10.2 L Hct 32.9 L MCV 69.3 L D MCH 21.4 L MCHC 30.9 RDW 22.3 H Plt Count 209 Neut % (Auto) 71.1 Lymph % (Auto) 14.5 L [place] % (Auto) 13.9 Eos % (Auto) 0.0 L Baso % (Auto) 0.5 Neut # (Auto) 4000 Lymph # (Auto) 800 L [place] # (Auto) 800 Eos # (Auto) 0 Baso # (Auto) 0 RBC Morphology See below Hypochromasia 1+ H Poikilocytosis 2+ H Anisocytosis 2+ H Microcytosis 2+ H Ovalocytes 1+ H Sodium 133 L Potassium 4.7 Chloride 101 Carbon Dioxide 23 BUN 49 H Creatinine 3.07 H Estimated GFR 15 L BUN/Creatinine Ratio 16.0 Glucose 90 Hemoglobin A1c Calcium 8.0 L Total Bilirubin 0.2 AST 24 ALT 10 Alkaline Phosphatase 72 Total Protein 6.0 L Albumin 3.3 L Globulin 2.7 Albumin/Globulin Ratio 1.2 Blood Type O Positive Antibody Screen Negative Crossmatch See Detail 10/11/21 06:20 WBC RBC Hgb Hct MCV MCH MCHC RDW Plt Count Neut % (Auto) Lymph % (Auto) [place] % (Auto) Eos % (Auto) Baso % (Auto) Neut # (Auto) Lymph # (Auto) [place] # (Auto) Eos # (Auto) Baso # (Auto) RBC Morphology Hypochromasia Poikilocytosis Anisocytosis Microcytosis Ovalocytes Sodium Potassium Chloride Carbon Dioxide BUN Creatinine Estimated GFR BUN/Creatinine Ratio Glucose Hemoglobin A1c 7.0 H Calcium Total Bilirubin AST ALT Alkaline Phosphatase Total Protein Albumin Globulin Albumin/Globulin Ratio Blood Type Antibody Screen Crossmatch [facility] Medical History Acute pancreatitis CHF (congestive heart failure) Cognitive impairment Major depression in partial remission Myocardial infarction Osteoarthritis Plaque psoriasis Type 2 diabetes mellitus Surgical History History of appendectomy History of bilateral hip replacements History of cholecystectomy History of left knee surgery History of surgery on right wrist Family History Mother Congestive heart failure Brother Congestive heart failure Social History household members: family and children Smoking Status: Never smoker alcohol intake: never Assessment & Plan Assessment & Plan narrative: Ms. Foley is a 76W with PMH CHFrEF, CKD stage 4, DM who presented initially with shortness of breath 1. Acute respiratory distress-this is resolved and not requiring O2 supplementation at this time. Suspect secondary to CHF and COVID COVID positive BNP elevated initially at 34.9k consistent with acute exacerbation of congestive heart failure. Has benefited from the intravenous furosemide at 80 mg IV every 12 hours. Can transition now to oral medication. Will transition to patient's regular medication of torsemide 40 mg p.o. b.i.d. Continue on low salt diet Continue monitoring I/Os 2. Presumed UTI UA positive Urine culture positive, preliminary shows Gram-positive bacilli, final culture shows E coli that is pansensitive Downgraded to oral medication. 3. CHFrEF, possible acute decompensation with history of CAD, repeat echo pending. last EF appears to be 20-25% with multiple akinetic, and hypokinetic EF remains at 20 to 25% on this admission -confirmed by ECHO. 4. CKD stage 4 creatinine on admission at 3.1, 3.07 today. Reasonably stable. near baseline with previous creatinine being high 2s to 3.0 Urination remains good Continue to monitor creatinine closely with diuresis 5. Type 2 DM hold oral medications [address] on insulin sliding scale Hemoglobin A1c is measured at 7.0 which is very reasonable for this patient. 6. Microcytic anemia -chronic, appears slowly decreasing over the last several months.? Based on being sick it would be of benefit to give a transfusion.? This has been ordered. -iron studies show iron deficiency -replace. Motion to andrew hemoglobin has increased to 10.2 and patient feels much better. 7. Low iron and low % saturation consistent with iron deficiency.? Replace.? 8. Renal failure.? Chronic stage 4-5.? Has been stable. Continue to monitor. Patient continues to have inadequate improvement and requires active, continues management. Will evaluate labs tomorrow and to ensure his stability with switching to oral diuresis, follow CBC, chemistry panel and BNP tomorrow. Patient has had inadequate in improvement requiring active, continuous management. Patient remains inpatient. Time Spent With Patient Critical Care time: I spent a total of [] minutes of critical care time on this patient's care toda y; this time is exclusive of procedural time. Quality VTE Deep Vein Thrombosis/Pulmonary Embolism Present on Admission: No
[2021-10-11] MEDS: TORSEMIDE 10 MG TABLET 40 MG PO (17:47)
[2021-10-11] MEDS: cephALEXin 250 MG CAPSULE PO (22:04)
[2021-10-12] VITALS (7 sets, daily range): BP systolic 102–143; BP diastolic 47–77; PULSE 76–84; RESP 14–18; TEMP 36.3–36.7; O2SAT 96–98
[2021-10-12 07:52] LABS: Add Manual Diff / Slide Review NO; Basophils Absolute Auto 0 /uL (0-100); Basophils Percent Auto 0.5 % (0-2); Eosinophils Absolute Auto 0 /uL (0-450); Eosinophils Percent Auto 0.4 % (2-4); Hematocrit 30.1 % (36-46); Hemoglobin 9.6 g/dL (12.0-16.0); Lymphocytes Absolute Auto 600 /uL (1100-4500); Lymphocytes Percent Auto 19.8 % (25-40); Mean Corpuscular HGB Conc 31.9 % (30-36); Mean Corpuscular Hemoglobin 21.7 PG (26-34); Mean Corpuscular Volume 68.1 fL (80-100); Monocytes Absolute Auto 500 /uL (0-900); Neutrophils Absolute Auto 2100 /uL (1500-7000); Neutrophils Percent Auto 65.3 % (50-75); Platelet Count 166 X10^3/uL (150-400); Red Blood Cell Count 4.41 X10^6/uL (4.0-5.2); Red Cell Distribution Width 22.5 % (11.6-14.8); White Blood Cell Count 3.3 X10^3/uL (4.5-11.0)
[2021-10-12 08:02] LABS: Alanine Aminotransferase 9 IU/L (<35); Albumin Globulin Ratio 1.2 (1.0-2.8); Alkaline Phosphatase 68 U/L (38-126); Aspartate Aminotransferase 24 IU/L (14-36); BUN Creatinine Ratio 16.6 (6-22); Bilirubin Total 0.2 mg/dL (0.2-1.3); Blood Urea Nitrogen 46 mg/dL (7-17); Calcium 7.7 mg/dL (8.4-10.2); Carbon Dioxide 21 mmol/L (22-32); Chloride 103 mmol/L (98-107); Estimated Glomerular Filt Rate 17 mL/min (>60); Globulin 2.6 g/dL (1.7-4.1); Glucose 75 mg/dL (80-110); HEMOLYSIS < 15 (0-50); Potassium 3.7 mmol/L (3.4-5.1); Sodium 134 mmol/L (137-145); Total Protein 5.6 g/dL (6.3-8.2)
[2021-10-12 08:21] LABS: NT-proBNP (BNP-Adult 18+) 43700 pg/mL (<450)
[2021-10-12] MEDS: cephALEXin 250 MG CAPSULE PO (09:47)
[2021-10-12] MEDS: ISOSORBIDE MONONITRATE ER 30 MG TABLET 60 MG PO (09:47)
[2021-10-12] MEDS: SERTRALINE 50 MG TABLET PO (09:47)
[2021-10-12] MEDS: FERROUS SULFATE 325 MG TABLET PO (09:48)
[2021-10-12] MEDS: carvediloL 12.5 MG TABLET 25 MG PO (09:48)
[2021-10-12] MEDS: CLOPIDOGREL 75 MG TABLET PO (09:49)
[2021-10-12] MEDS: HEPARIN 5,000 UNIT/ML VIAL 5000 UNIT SUBCUT (09:49)
[2021-10-12] MEDS: TORSEMIDE 10 MG TABLET 40 MG PO (09:51)
--- NOTE | 2021-10-12 12:35 | PM.DS.1 ---
History of Present Illness History of Present Illness Date Patient Seen: 10/12/21 Chief complaint: COVID+, Underlying Health Issues, Ankle Swelling Narrative: On presentation history and physical the patient has history of presenting complaint is as follows: Ms. Foley is a 76W with PMH CHFrEF, CKD stage 4, DM, HTN, CAD with significant LAD per notes not amenable to stenting, microcytic anemia who presented with shortness of breath. She states she started feeling ill a couple days ago and initially tested negative but then later tested positive. She had cough, sore throat. She is coughing up sputum. She then developed exertional dyspnea and orthopnea, as well as lower extremity edema. She did get covid vaccine. Currently patient is feeling well. No shortness of breaths. Able to ambulate normally. No cough or wheezing. Eager to go home. Discharge Providers Provider Date of admission: 10/09/21 16:00 Discharge Date: 10/12/21 Primary care physician: Oliver Ibrahim MD Discharge provider: Funmi Brown MD Summary Hospital Course Discharge Diagnosis: Congestive heart failure exacerbation in setting of COVID. Hospital Course: Patient presented with congestive heart failure exacerbation in setting of COVID. BNP was elevated to be over 34,000. Patient was treated with diuresis with initially furosemide 80 mg IV every 12 hours. Once stable with signs of congestive heart failure patient was transition to torsemide 40 mg p.o. b.i.d.. On presentation patient has chronic anemia was more severe. Hemoglobin was 7.1. Patient was transfused with 2 units packed red blood cells. On day of discharge hemoglobin was 9.6. Patient has chronic renal failure was stable during the hospital stay with GFR of 17 on the day of discharge. This is stage IV chronic renal failure. Patient BNP was remaining elevated at the time of discharge with over 43,000. This is likely related to the patient's chronic kidney disease. The sore throat and coughing up sputum related to the COVID diagnosis had resolved at the time of discharge. Patient was at her baseline at the time of discharge and eager to go home. Status at Discharge Cognitive/behavioral status at discharge: at baseline, oriented Functional status at discharge: independent ambulation Overall status at discharge: patient is back to baseline Time Spent with Patient Time spent: Greater than 30 minutes Exam Vital Signs (past 8 hours): - 10/12/21 05:09 10/12/21 09:48 10/12/21 09:30 Temperature 97.6 F Pulse Rate 84 81 Respiratory Rate 17 Blood Pressure 107/48 L 143/77 H Pulse Oximetry 96 96 Oxygen Delivery Method Room Air Oxygen Flow Rate 0 0 10/12/21 08:15 Temperature 97.3 F L Pulse Rate 81 Respiratory Rate 16 Blood Pressure 143/77 H Pulse Oximetry 98 Oxygen Delivery Method Oxygen Flow Rate 0 Oxygen Delivery Method Room Air Oxygen Flow Rate 0 Narrative Exam Narrative: Patient alert oriented times person and place. In no acute distress. HEENT: Pupils equal reactive light. Extraocular movements normal. Neck is supple. Neck nodes are nontender nonpalpable. Trachea is midline. Cardiovascular: Heart sounds S1 and S2. Peripheral pulses equal bilaterally. Minimal peripheral edema. Respiratory: Adequate air entry throughout the lung [place]. No wheezes. Occasional crackles are cleared with inspirations. Gastrointestinal: Bowel sounds normal. Nontender. Extremities: Able to move all extremities volitionally. No localized strength deficits. Neuro: Normal sensation of all extremities. No localizing signs. Skin: No lesions or rashes. Objective Labs Result Diagrams: 10/12/21 06:52 10/12/21 06:52 Labs: Laboratory Results - last 24 hr 10/12/21 10/12/21 06:52 06:52 WBC 3.3 L RBC 4.41 Hgb 9.6 L Hct 30.1 L MCV 68.1 L MCH 21.7 L MCHC 31.9 RDW 22.5 H Plt Count 166 Neut % (Auto) 65.3 Lymph % (Auto) 19.8 L [place] % (Auto) 14.0 Eos % (Auto) 0.4 L Baso % (Auto) 0.5 Neut # (Auto) 2100 Lymph # (Auto) 600 L [place] # (Auto) 500 Eos # (Auto) 0 Baso # (Auto) 0 Nucleated RBCs Cancelled Hypersegmented Neuts Cancelled Hypogranular Neuts Cancelled Reactive Lymphocytes Cancelled Smudge Cells Cancelled Other Cell Type Cancelled Toxic Granulation Cancelled Toxic Vacuolation Cancelled Dohle Bodies Cancelled [place] Rods Cancelled WBC Morphology Comment Cancelled Platelet Estimate Cancelled Clumped Platelets Cancelled Plt Morphology Comment Cancelled RBC Morphology Cancelled Dimorphic RBCs Cancelled Polychromasia Cancelled Hypochromasia Cancelled Poikilocytosis Cancelled Basophilic Stippling Cancelled Anisocytosis Cancelled Microcytosis Cancelled Macrocytosis Cancelled Spherocytes Cancelled Pappenheimer Bodies Cancelled Sickle Cells Cancelled Target Cells Cancelled Tear Drop Cells Cancelled Ovalocytes Cancelled Stomatocytes Cancelled Helmet Cells Cancelled [place] Bodies Cancelled [place] Rings Cancelled [place] Cells Cancelled Acanthocytes (Spur) Cancelled Rouleaux Cancelled Schistocytes Cancelled Sodium 134 L Potassium 3.7 Chloride 103 Carbon Dioxide 21 L BUN 46 H Creatinine 2.77 H Estimated GFR 17 L BUN/Creatinine Ratio 16.6 Glucose 75 L Calcium 7.7 L Total Bilirubin 0.2 AST 24 ALT 9 Alkaline Phosphatase 68 NT-Pro-B Natriuret Pep 91927 H Total Protein 5.6 L Albumin 3.0 L Globulin 2.6 Albumin/Globulin Ratio 1.2 PFSH Medical History Acute pancreatitis CHF (congestive heart failure) Cognitive impairment Major depression in partial remission Myocardial infarction Osteoarthritis Plaque psoriasis Type 2 diabetes mellitus Surgical History History of appendectomy History of bilateral hip replacements History of cholecystectomy History of left knee surgery History of surgery on right wrist Family History Mother Congestive heart failure Brother Congestive heart failure Social History household members: family and children Smoking Status: Never smoker alcohol intake: never Discharge Assessment & Plan Assessment and Plan Assessment: Exacerbation of congestive heart failure in setting of COVID and acute on chronic anemia. Plan of Treatment: 1. Acute respiratory distress-this is resolved and not requiring O2 supplementation at this time. Suspect secondary to CHF and COVID 2. UTI UA positive Urine culture positive, preliminary shows Gram-positive bacilli, final culture shows E coli that is pansensitive On oral cephalexin on discharge. 3. CHFrEF, possible acute decompensation with history of CAD last EF appears to be 20-25% with multiple akinetic, and hypokinetic EF remains at 20 to 25% on this admission -confirmed by ECHO. 4. CKD stage 4 Creatinine on admission at 3.1, 2.77 today.? Reasonably stable with some improvement. At baseline with previous creatinine being high 2s to 3.0 5. Type 2 DM Resume oral medications Hemoglobin A1c is measured at 7.0 which is very reasonable for this patient. 6. Microcytic anemia Chronic, appears slowly decreasing over the last several months. Acute on chronic anemia treated with transfusion 2 units packed red blood cells. Iron studies show iron deficiency -replace. Hemoglobin at discharge 9.6 7. Low iron and low % saturation consistent with iron deficiency.? Replacing.? 8. Renal failure.? Chronic stage 4.? Has been stable. 9. COVID symptoms of cough with sputum production and sore throat resolved at discharge. Discharge Plan Discharge Plan Patient Disposition: Home Discharge orders & Medications Prescriptions: New ferrous sulfate 325 mg (65 mg iron) Tablet 325 mg PO BIDWM Qty: 60 0RF cephalexin 250 mg Capsule 250 mg PO BID Qty: 10 0RF carvedilol [Coreg] 12.5 mg Tablet 25 mg PO BID Qty: 60 0RF Continued isosorbide mononitrate 60 mg tablet extended release 24 hr 60 mg PO QAM cholecalciferol (vitamin D3) 25 mcg (1,000 unit) tablet 25 mcg PO BID Qty: 180 3RF colestipol 1 gram tablet 1 g PO BID Qty: 180 2RF famotidine 40 mg tablet 40 mg PO QAM Qty: 90 2RF sertraline 50 mg tablet 50 mg PO QAM Qty: 90 1RF docusate sodium 100 mg capsule 100 mg PO QAM Qty: 90 2RF pantoprazole 40 mg tablet,delayed release (DR/EC) 40 mg PO QAM Qty: 90 2RF torsemide 40 mg tablet 40 mg PO BID atorvastatin 40 mg tablet 40 mg PO BEDTIME Qty: 90 3RF clopidogrel 75 mg tablet 75 mg PO QAM ascorbic acid (vitamin C) 500 mg Tablet,Chewable 500 mg PO QAM [id number] Tablet 1 tab PO QAM carvedilol 25 mg tablet 25 mg PO BID hydromorphone 2 mg Tablet 2 mg PO BID PRN (Reason: Pain (Scale Score 7-10)) Tradjenta 5 mg Tablet 5 mg PO DAILY lorazepam [Ativan] 0.5 mg tablet 0.5 mg PO TID PRN (Reason: leg spasm) Qty: 10 0RF Follow up/Referrals: Oliver Ibrahim MD [Primary Care Provider] - Discharge Data Primary Care Provider: Oliver Ibrahim Attending Provider: Funmi Brown VTE Deep Vein Thrombosis/Pulmonary Embolism Present on Admission: No
--- NOTE | 2021-10-12 14:29 | PC.NURSE ---
Pt is dressed and ready for discharge home with daughter. IV and tele removed. Went over d/c instructions with Pt-discussed d/c meds, time of last dose, reviewed stroke education, reviewed chf guidelines sheet and recommended Pt post it on her fridge. Discussed follow up, discussed diuretic effect and being aware of her potassium level, contacting her doctor if her swelling increases, weight increases, or shortness of breath occurs, also discussed her Coreg and being aware that she should get up slowly from the bed or chair to prevent dizziness. COVID information was provided including care instructions for home care by her Daughter with whom she lives. Pt denies further questions and was taken out via w/c by [employer] to [facility] where daughter was waiting to take her home.
--- NOTE | 2021-10-12 14:48 | CM.DPC ---
DCP Note: Patient improving and new orders for discharge. Will discharge home with daughter to previous living arrangement. Parvin Hilliard RN/DCP
== END 2021-10-12 14:36 | disposition home or self-care (01) ==
LOC: ED 12:40 → AC 16:01
PROVIDERS: Internal Medicine; Admitting Provider Neuromusculoskeletal Medicine, Sports Medicine; Emergency Provider Emergency Medicine; PCP Student in an Organized Health Care Education/Training Program; Referring Provider Emergency Medicine; Visit Provider Neuromusculoskeletal Medicine, Sports Medicine
DX: U07.1 COVID-19 (principal); E11.9 Type 2 diabetes mellitus without complications; Z79.84 Long term (current) use of oral hypoglycemic drugs; I50.20 Unspecified systolic (congestive) heart failure; N39.0 Urinary tract infection, site not specified; B96.20 Unspecified Escherichia coli [E. coli] as the cause of diseases classified elsewhere; E11.22 Type 2 diabetes mellitus with diabetic chronic kidney disease; N18.4 Chronic kidney disease, stage 4 (severe); D50.9 Iron deficiency anemia, unspecified
CPT/HCPCS: 36415; 36430; 71046; 80048; 80053; 81001; 82550; 82962; 83036; 83540; 83550; 83605; 83880; 84484; 85007; 85025; 86850; 86900; 86901; 87077; 87086; 87186; 87635; 93005; 94760; 96365; 96366; 96372; 96375; 96376; 99284; C9803; G0378; P9016; J0696; J1644; J1815; J1940; J2405

== ENCOUNTER → 2021-11-29 10:35 | Outpatient (CLI) | payer MEDICARE, OTHER, SELFPAY ==
[2021-10-09 16:29] VITALS: BMI 22.8
[2021-11-29 11:44] LABS: Hemoglobin A1C% w Est Avg Glu 5.9 % (4.0-6.0)
[2021-11-29 12:04] LABS: BUN Creatinine Ratio 31.2 (6-22); Blood Urea Nitrogen 93 mg/dL (7-17); Calcium 9.1 mg/dL (8.4-10.2); Carbon Dioxide 33 mmol/L (22-32); Chloride 91 mmol/L (98-107); Estimated Glomerular Filt Rate 16 mL/min (>60); Glucose 134 mg/dL (80-110); HEMOLYSIS < 15 (0-50); Iron 108 ug/dL (37-170); Magnesium 2.2 mg/dL (1.6-2.3); Potassium 4.3 mmol/L (3.4-5.1); Sodium 134 mmol/L (137-145)
[2021-11-29 12:16] LABS: Percent Iron Saturation 40 % (15-50); Total Iron Binding Capacity 270 ug/dL (265-497); Transferrin 213 mg/dL (206-381)
[2021-11-29 12:41] LABS: Ferritin 424 ng/mL (11-264)
[2021-11-29 17:55] LABS: Add Manual Diff / Slide Review NO; Basophils Absolute Auto 0 /uL (0-100); Basophils Percent Auto 0.4 % (0-2); Eosinophils Absolute Auto 100 /uL (0-450); Hematocrit 33.8 % (36-46); Hemoglobin 11.1 g/dL (12.0-16.0); Lymphocytes Absolute Auto 900 /uL (1100-4500); Lymphocytes Percent Auto 19.7 % (25-40); Mean Corpuscular HGB Conc 32.9 % (30-36); Mean Corpuscular Hemoglobin 24.9 PG (26-34); Mean Corpuscular Volume 75.5 fL (80-100); Monocytes Absolute Auto 400 /uL (0-900); Monocytes Percent Auto 9.3 % (3-14); Neutrophils Absolute Auto 3000 /uL (1500-7000); Neutrophils Percent Auto 67.6 % (50-75); Platelet Count 217 X10^3/uL (150-400); Red Blood Cell Count 4.47 X10^6/uL (4.0-5.2); Red Cell Distribution Width 27.2 % (11.6-14.8); White Blood Cell Count 4.4 X10^3/uL (4.5-11.0)
[2021-11-29 18:51] LABS: Anisocytosis 2+; Hypochromasia 1+
[2021-11-29 18:52] LABS: Poikilocytosis 1+
== END ==
PROVIDERS: PCP Student in an Organized Health Care Education/Training Program; Referring Provider Internal Medicine Nephrology; Visit Provider Internal Medicine Nephrology
DX: E11.9 Type 2 diabetes mellitus without complications (principal); N18.4 Chronic kidney disease, stage 4 (severe); D63.1 Anemia in chronic kidney disease
CPT/HCPCS: 36415; 80048; 82728; 83036; 83540; 83550; 83735; 85025

== ENCOUNTER → 2022-01-08 14:58 | Outpatient (CLI) | payer MEDICARE, OTHER, SELFPAY ==
[2021-10-09 16:29] VITALS: BMI 22.8
--- NOTE | 2022-01-08 15:01 | DI.ECHO.S_ITS ---
[facility]---------[facility] +---------+ : : [address] [place] : : : : [id number] : : : : Phone: [phone]+ Echocardiogram Report + + :Name: BERTIN MARIO Study Date: 01/08/2022 Height: 66 in : :[facility] ReadingLocation: Weight: 145 lb : : Gender: Female BSA: 1.7 m2 : :: 1945 Age: 76 yrs BP: 141/84 mmHg: :Reason For Study: SYSTOLIC HEART FAILURE : :Ordering Physician: MIKA, : :DIVYA Performed By: Diana Mercer : :Referring: ZACHERY LAO : + + Interpretation Summary 1) Normal left ventricular thickness and size with severely reduced systolic function (EF 20-25%). 2) Mildly enlarged right ventricle with mildly to moderately reduced function. 3) There is moderate mitral regurgitation. 4) There is moderate tricuspid regurgitation. 5) The right ventricular systolic pressure is estimated to be at least 46 mmHg based on an estimated right atrial pressure of 8 mm Hg. 6) There is a small left-sided pleural effusion. 7) Compared to the Echo done 07/26/2021, systolic PA pressures have decresaed from 62mmHg to 46mmHg on this study. Procedure: A two-dimensional transthoracic echocardiogram with color flow and Doppler was performed. The study quality was technically adequate. Comparison is made with the echocardiogram of 07/26/2021. The heart rate ranged between 73-93 bpm during the study. Left Ventricle: The left ventricle is normal in size and wall thickness. The ejection fraction is estimated to be 20-25%. There is severe global hypokinesis of the left ventricle. Right Ventricle: The right ventricle is mildly dilated. Right ventricular systolic function is mild to moderately reduced. Atria: The left atrium is moderately dilated. The right atrium is mildly dilated. There is no Doppler evidence for an interatrial shunt. Mitral Valve: The mitral valve leaflets appear mildly thickened, but open well. There is mild mitral annular calcification. The mitral valve chordae are thickened and/or calcified. There is moderate mitral regurgitation. Aortic Valve: The aortic valve is mildly calcified. There is mild aortic valve sclerosis. The aortic valve is trileaflet. There is no aortic valve stenosis. No aortic regurgitation is present. Tricuspid Valve: The tricuspid valve leaflets are thickened and/or calcified, but open well. There is moderate tricuspid regurgitation. The right ventricular systolic pressure is estimated to be at least 46 mmHg based on an estimated right atrial pressure of 8 mm Hg. Pulmonic Valve: The pulmonic valve is not well seen, but is grossly normal. There is mild pulmonic regurgitation. Great Vessels: The aortic root is normal size. The dimensions of the ascending aorta are normal. The IVC is dilated (diameter is greater than 2.1 cm) yet it collapses greater than 50% with a sniff. This suggests a right atrial pressure of 8 mm Hg. Pericardium/ Pleura There is a trivial pericardial effusion noted. There is a small left-sided pleural effusion. MMode/2D Measurements & Calculations LVIDd: 5.4 cm LVOT diam: 1.9 cm LVIDs: 4.9 cm Ao root diam: 2.7 cm FS: 10.0 % asc Aorta Diam: 3.4 cm EPSS: 2.3 cm Ao Arch Diam (Prox Trans): 2.5 cm IVSd: 0.95 cm LVPWd: 1.0 cm LV pires. diameter/BSA (cm/m^2): 3.1 LV sys. diameter/BSA (cm/m^2): 2.8 LA A2 area: 22.2 cm2 RA long axis: 5.6 cm LA A4 area: 25.6 cm2 RA area: 20.9 cm2 LA length (vol): 6.6 cm RA vol: 66.2 ml LA vol: 73.3 ml RA : 37.9 ml/m2 LA vol index: 42.0 ml/m2 IVC diam: 2.3 cm RVD1 (basal): 4.2 cm RVD2 (mid): 3.3 cm TAPSE: 1.3 cm Doppler Measurements & Calculations Ao V2 max: 111.0 cm/sec LVOT Max Jimmy: 73.4 cm/sec Ao V2 mean: 84.1 cm/sec LV V1 max P.2 mmHg Ao max P.9 mmHg LV V1 VTI: 14.1 cm Ao mean P.0 mmHg CATHY(I,D): 1.9 cm2 Ao V2 VTI: 21.6 cm CATHY(V,D): 2.0 cm2 sev ratio: 0.65 CATHY indexed to BSA (cm^2/m^2): 1.1 MV E max jimmy: 131.3 cm/sec TR max jimmy: 306.6 cm/sec MV A max jimmy: 2.5 cm/sec TR max P.6 mmHg MV E/A: 52.2 PA V2 max: 83.4 cm/sec Med Peak E' Jimmy: 4.5 cm/sec PA V2 mean: 60.2 cm/sec E/E' med: 29.2 PA mean P.6 mmHg Lat Peak E' Jimmy: 9.8 cm/sec PA pr(Accel): 53.3 mmHg E/E' lat: 13.3 E/e' average: 21.3 MV dec time: 0.15 sec MVA(VTI): 1.9 cm2 MR ERO: 0.17 cm2 MV V2 mean: 74.4 cm/sec MR PISA: 2.7 cm2 MV mean P.7 mmHg MR flow rate: 83.7 cm3/sec MV V2 VTI: 21.5 cm MR PISA radius: 0.66 cm SV(LVOT): 41.9 ml Reading Physician:02:37 PM
== END ==
PROVIDERS: PCP Student in an Organized Health Care Education/Training Program; Referring Provider Internal Medicine Cardiovascular Disease; Visit Provider Internal Medicine Cardiovascular Disease
DX: I50.22 Chronic systolic (congestive) heart failure (principal); I25.5 Ischemic cardiomyopathy; I08.3 Combined rheumatic disorders of mitral, aortic and tricuspid valves; J90 Pleural effusion, not elsewhere classified
CPT/HCPCS: 93306

== ENCOUNTER 2022-01-20 10:00 | Inpatient (IN) | payer MEDICARE, OTHER, SELFPAY ==
[2021-10-09 16:29] VITALS: BMI 22.8
[2022-01-20] VITALS (13 sets, daily range): BP systolic 136–162; BP diastolic 76–92; PULSE 78–85; RESP 16–21; TEMP 36.3–37.1; O2SAT 95–100; BMI 27.6; BMI 29.7
--- NOTE | 2022-01-20 10:24 | DI.RAD.S_ITS ---
PROCEDURE: XR CHEST 2V INDICATIONS: shortness of breath TECHNIQUE: 2 views of the chest were acquired. COMPARISON: [facility], CR, XR CHEST 1V, 07/27/2021, 8:20. [facility], CR, XR CHEST 1V, 09/18/2021, 10:18. [facility], CR, XR CHEST 2V, 10/09/2021, 12:19. FINDINGS: Surgical changes and devices: None. Lungs and pleura: There is minimal blunting of the costophrenic angles. Mild generalized interstitial prominence can be seen. No focal infiltrates are seen. Mediastinum: The cardiac contours are is moderately enlarged. The aorta demonstrates calcification and tortuosity. Bones and chest wall: No suspicious bony abnormalities. Soft tissues appear unremarkable. IMPRESSION: Cardiomegaly with interstitial prominence and minimal pleural effusions. Please correlate with patient presentation, physical examination findings, and laboratory values for congestive heart failure. Dictated by: Jcarlos Angel M.D. on 01/20/2022 at 10:16 Approved by: Jcarlos Angel M.D. on 01/20/2022 at 10:17
[2022-01-20 10:41] LABS: Basophils Absolute Auto 0 /uL (0-100); Lymphocytes Absolute Auto 700 /uL (1100-4500); Mean Corpuscular Hemoglobin 27.3 PG (26-34); Monocytes Absolute Auto 500 /uL (0-900); Monocytes Percent Auto 9.3 % (3-14); Neutrophils Absolute Auto 4400 /uL (1500-7000); Neutrophils Percent Auto 76.6 % (50-75)
[2022-01-20 10:45] LABS: Basophils Percent Auto 0.5 % (0-2); Eosinophils Absolute Auto 100 /uL (0-450); Eosinophils Percent Auto 0.9 % (2-4); Lymphocytes Percent Auto 12.7 % (25-40); Mean Corpuscular HGB Conc 32.5 % (30-36); Platelet Count 216 X10^3/uL (150-400); Red Blood Cell Count 4.41 X10^6/uL (4.0-5.2); Red Cell Distribution Width 14.3 % (11.6-14.8); White Blood Cell Count 5.8 X10^3/uL (4.5-11.0)
[2022-01-20 10:46] LABS: D Dimer 2028 ng/ml (<500)
[2022-01-20 10:47] LABS: Add Manual Diff / Slide Review SLIDE REVIEW
[2022-01-20 10:48] LABS: Alanine Aminotransferase 15 IU/L (<35); Albumin Globulin Ratio 1.3 (1.0-2.8); Alkaline Phosphatase 147 U/L (38-126); Aspartate Aminotransferase 25 IU/L (14-36); BUN Creatinine Ratio 14.6 (6-22); Bilirubin Total 0.5 mg/dL (0.2-1.3); Blood Urea Nitrogen 41 mg/dL (7-17); Carbon Dioxide 27 mmol/L (22-32); Chloride 90 mmol/L (98-107); Creatine Kinase 31 U/L (30-135); Estimated Glomerular Filt Rate 17 mL/min (>60); Globulin 3.2 g/dL (1.7-4.1); Glucose 110 mg/dL (80-110); HEMOLYSIS < 15 (0-50); Potassium 4.3 mmol/L (3.4-5.1); Sodium 130 mmol/L (137-145); Total Protein 7.2 g/dL (6.3-8.2)
[2022-01-20 10:49] LABS: Lactate (Lactic Acid) 1.3 mmol/L (0.7-2.1)
--- NOTE | 2022-01-20 10:59 | ED.SOB ---
HPI - SOB/Dyspnea General Chief Complaint: Shortness of Breath/Dyspnea Stated Complaint: Shortness of breath Time Seen by Provider: 01/20/22 10:36 Source: patient Mode of arrival: Family Vehicle Limitations: no limitations History of Present Illness HPI Narrative: This 76-year-old female with history of CHF, diabetes, hypertension, chronic kidney disease, coronary artery disease and anemia presents with 2 days of increased dyspnea. She has no chest pain, she has no cough. She does have orthopnea. She has no lower extremity edema. She has experienced recent weight gain. She has no headache, no sore throat or dysphagia. She denies fever chills. She has weakness, no myalgia or arthralgia. She had COVID September 2021. She is currently talking in full sentences. She has not experienced significant edema. She is on torsemide for CHF, she is compliant with medications. Echocardiogram done last month reveals EF of 20-25%. There is mildly enlarged right ventricle. Moderate MR. Moderate tricuspid regurg. Related Data Home Medications Medication Instructions Recorded Confirmed isosorbide mononitrate 60 mg 60 mg PO QAM 06/05/21 01/20/22 tablet,extended release 24 hr ascorbic acid (vitamin C) 500 mg 500 mg PO QAM 07/25/21 01/20/22 chewable tablet hjknuvhikxrw-kawogbyu-rxbckz tablet 1 tab PO QAM 07/25/21 01/20/22 torsemide 40 mg tablet 40 mg PO BID 09/28/21 01/20/22 linagliptin 5 mg tablet (Tradjenta) 5 mg PO DAILY 10/09/21 01/20/22 Previous Rx's Medication Instructions Recorded lorazepam 0.5 mg tablet (Ativan) 0.5 mg PO TID PRN leg spasm #10 09/18/21 tabs cholecalciferol (vitamin D3) 25 25 mcg PO BID #180 tabs 09/22/21 mcg (1,000 unit) tablet colestipol 1 gram tablet 1 g PO BID #180 tabs 09/22/21 docusate sodium 100 mg capsule 100 mg PO QAM #90 caps 09/22/21 famotidine 40 mg tablet 40 mg PO QAM #90 tabs 09/22/21 pantoprazole 40 mg tablet,delayed 40 mg PO QAM #90 tabs 09/22/21 release sertraline 50 mg tablet 50 mg PO QAM #90 tabs 09/22/21 cephalexin 250 mg capsule 250 mg PO BID #10 caps 10/12/21 carvedilol 25 mg tablet 25 mg PO BID #180 tabs 11/08/21 carvedilol 12.5 mg tablet (Coreg) 25 mg PO BID #90 tabs 11/29/21 atorvastatin 40 mg tablet 40 mg PO BEDTIME #90 tabs 12/04/21 clopidogrel 75 mg tablet 75 mg PO QAM #90 tabs 12/04/21 one touch verio test strips #100 ea 01/02/22 Allergies Allergy/AdvReac Type Severity Reaction Status Date / Time dimenhydrinate Allergy Verified 01/20/22 10:29 [From Dramamine] diphenhydramine AdvReac Verified 01/20/22 10:29 [From Benadryl] hydrocodone AdvReac Verified 01/20/22 10:29 Review of Systems Review of Systems ROS Unobtainable: All systems reviewed & are unremarkable except as noted in HPI and below Constitutional Constitutional: Reports as per HPI, Denies body ache(s), Denies chills, Denies fatigue, Denies fever(s) and Denies frequent falls Eyes Eyes: Denies change in vision ENT Ears, Nose, Mouth, and Throat: Denies vertigo, Denies dizziness, Denies sinus pressure and Denies sore throat Cardiovascular Cardiovascular: Denies chest pain, Denies rapid heart rate, Denies pedal edema, Denies edema, Denies irregular heart rhythm, Reports dyspnea and Reports dyspnea on exertion Respiratory Respiratory: Denies cough, Reports dyspnea, Reports dyspnea on exertion and Denies wheezing Gastrointestinal Gastrointestinal: Denies abdominal pain Genitourinary Genitourinary: Denies dysuria Musculoskeletal Musculoskeletal: Denies back pain, Denies myalgias and Denies myalgias Integumentary/Breasts Skin/Breast: Denies lesions and Denies rash Neurologic Neurologic: Denies confusion, Denies vertigo, Denies dizziness and Denies frequent falls Psychiatric Psychiatric: Denies confusion and Denies depression Endocrine Endocrine: Denies fatigue Hematologic/Lymphatic On Anticoagulants: No Allergic/Immunologic Allergic/Immunologic: Denies wheezing Patient History Medical History Cognitive impairment COVID-19 Major depression in partial remission Myocardial infarction Osteoarthritis Plaque psoriasis Type 2 diabetes mellitus Surgical History History of appendectomy History of bilateral hip replacements History of cholecystectomy History of left knee surgery History of surgery on right wrist Family History Mother Congestive heart failure Brother Congestive heart failure Social History household members: family and children Smoking Status: Never smoker alcohol intake: never Smoking Status: Never smoker Substance Use Type: does not use Exam Initial Vital Signs Initial Vital Signs: Vital Signs Temperature 97.3 F L 01/20/22 10:10 Pulse Rate 82 01/20/22 10:10 Respiratory Rate 18 01/20/22 10:10 Blood Pressure 149/76 H 01/20/22 10:10 Pulse Oximetry 97 01/20/22 10:10 Oxygen Delivery Method 01/20/22 10:10 Const General: cooperative, healthy appearing, comfortable, well groomed and No in distress HENCA Head: normal to inspection, normocephalic and atraumatic Mouth: oral mucosae normal Throat: posterior oropharynx normal Eyes General: Yes appearance normal, both eyes and all related structures Neck Neck: No JVD Chest Chest: normal inspection of the chest Breast Palpation: normal palpation of the breasts Resp Effort & Inspection: normal respiratory effort Auscultation: clear to auscultation bilaterally Cardio Rate: regular rate Rhythm: regular rhythm Heart Sounds: S1 normal, S2 normal and no murmurs GI Inspection: normal to inspection Palpation: soft and No tender Auscultation: normal bowel sounds Back/Spine/Pelvis Back: normal to inspection and No back tenderness Skin General: no rashes or lesions noted Neuro General: patient alert, patient awake, patient oriented x3, no meningeal signs and no focal motor deficits Extrem General: normal to inspection, full ROM, no calf tenderness, No calf tenderness and edema (Mild bilateral lower extremity edema) Psych Mental Status: mental status grossly normal Course Course Course Narrative: The patient has obvious CHF, Lasix 80 mg IV was given. Her GFR is extremely low, but she still makes urine. She has dyspnea, but no hypoxia. She is normotensive. The elevated D-dimer is of concern. PE disease to be ruled out, chest CTA cannot be performed because of her GFR. She is heparinized. She is admitted for dyspnea and CHF to the hospitalist, . The intent is to do a V/Q scan for evaluation for PE. Orders Ordered: Acetaminophen (Acetaminophen 325 Mg Tablet) 650 mg PO Q6HR PRN PRN Reason: Fever/Mild Pain (1-3) Last Admin: 01/20/22 20:29 Dose: 650 mg Documented By: JENNY Atorvastatin Calcium (Atorvastatin 20 Mg Tablet) 40 mg PO BEDTIME CARLOS Last Admin: 01/20/22 20:29 Dose: 40 mg Documented By: JENNY Clopidogrel Bisulfate (Clopidogrel 75 Mg Tablet) 75 mg PO DAILY CARLOS Last Admin: 01/20/22 17:31 Dose: 75 mg Documented By: NORA Dextrose (Dextrose 50 % In Water 25 Gm/50 Ml Syringe) 25 gm IV PRN PRN PRN Reason: Hypoglycemia Furosemide (Furosemide 100 Mg/10 Ml Vial) 80 mg IV Q12H CARLOS Last Admin: 01/20/22 14:44 Dose: 80 mg Documented By: NORA Heparin Sodium/Dextrose (Heparin Drip) 25,000 unit in 500 mls @ 20 mls/hr IV CONT CARLOS; Protocol Last Titration: 01/20/22 20:00 Dose: 700 units/hr, 14 mls/hr Documented By: Titration: 01/20/22 18:41 Dose: 0 units/hr, 0 mls/hr Documented By: Titration: 01/20/22 13:35 Dose: 1,000 units/hr, 20 mls/hr Documented By: Titration: 01/20/22 13:34 Dose: 0 units/hr, 0 mls/hr Documented By: Admin: 01/20/22 12:53 Dose: 1,000 units/hr, 20 mls/hr Documented By: LARRY Insulin Human Lispro (Insulin Lispro 100 Unit/Ml 3ml Vial) 0 unit SUBCUT ACHS CARLOS; Protocol Last Admin: 01/20/22 20:21 Dose: Not Given Documented By: JENNY Isosorbide Mononitrate (Isosorbide Mononitrate Er 30 Mg Tablet) 60 mg PO DAILY [facility] Last Admin: 01/20/22 17:31 Dose: 60 mg Documented By: NORA Ondansetron HCl (Ondansetron 4 Mg/2 Ml Inj) 4 mg IV Q8HR PRN PRN Reason: Nausea And Vomiting Sertraline HCl (Sertraline 50 Mg Tablet) 50 mg PO DAILY CARLOS Last Admin: 01/20/22 17:31 Dose: 50 mg Documented By: NORA Discontinued Medications Furosemide (Furosemide 100 Mg/10 Ml Vial) 80 mg IV NOW ONE Stop: 01/20/22 11:17 Last Admin: 01/20/22 11:28 Dose: 80 mg Documented By: LARRY Heparin Sodium (Porcine) (Heparin 5,000 Unit/Ml Vial) 6,200 unit 80 unit/kg (6200 unit) IV NOW ONE Stop: 01/20/22 12:20 Last Admin: 01/20/22 12:51 Dose: 6,200 unit Documented By: LARRY Vital Signs Vital signs: Vital Signs - 8 hr 01/20/22 10:10 Temperature 97.3 F L Pulse Rate 82 Respiratory Rate 18 Blood Pressure 149/76 H Pulse Oximetry 97 Oxygen Delivery Method Room Air MDM - SOB/Dyspnea Lab Data Result diagrams: 01/20/22 10:24 01/20/22 10:24 Labs: Lab Results 01/20/22 01/20/22 01/20/22 Range/Units 10:24 10:24 10:24 WBC 5.8 (4.5-11.0) X10^3/uL RBC 4.41 (4.0-5.2) X10^6/uL Hgb 12.0 (12.0-16.0) g/dL Hct 37.0 (36-46) % MCV 84.0 (80-100) fL MCH 27.3 (26-34) PG MCHC 32.5 (30-36) % RDW 14.3 (11.6-14.8) % Plt Count 216 (150-400) X10^3/uL Neut % (Auto) 76.6 H (50-75) % Lymph % (Auto) 12.7 L (25-40) % Carver % (Auto) 9.3 (3-14) % Eos % (Auto) 0.9 L (2-4) % Baso % (Auto) 0.5 (0-2) % Neut # (Auto) 4400 (0609-2063) /uL Lymph # (Auto) 700 L (4598-8073) /uL Carver # (Auto) 500 (0-900) /uL Eos # (Auto) 100 (0-450) /uL Baso # (Auto) 0 (0-100) /uL RBC Morphology See below Anisocytosis 1+ H D-Dimer (<500) ng/ml Sodium 130 L (137-145) mmol/L Potassium 4.3 (3.4-5.1) mmol/L Chloride 90 L (98-107) mmol/L Carbon Dioxide 27 (22-32) mmol/L BUN 41 H (7-17) mg/dL Creatinine 2.81 H (0.52-1.04) mg/dL Estimated GFR 17 L (>60) mL/min BUN/Creatinine Ratio 14.6 (6-22) Glucose 110 (80-110) mg/dL Lactate 1.3 (0.7-2.1) mmol/L Calcium 9.0 (8.4-10.2) mg/dL Total Bilirubin 0.5 (0.2-1.3) mg/dL AST 25 (14-36) IU/L ALT 15 (<35) IU/L Alkaline Phosphatase 147 H (38-126) U/L Total Creatine Kinase (30-135) U/L CK-MB (CK-2) CK-MB (CK-2) Rel Index Troponin I (0.01-0.034) ng/mL NT-Pro-B Natriuret Pep (<450) pg/mL Total Protein 7.2 (6.3-8.2) g/dL Albumin 4.0 (3.5-5.0) g/dL Globulin 3.2 (1.7-4.1) g/dL Albumin/Globulin Ratio 1.3 (1.0-2.8) SARS-CoV-2 (PCR) (Negative) 01/20/22 01/20/22 01/20/22 Range/Units 10:24 10:24 10:24 WBC (4.5-11.0) X10^3/uL RBC (4.0-5.2) X10^6/uL Hgb (12.0-16.0) g/dL Hct (36-46) % MCV (80-100) fL MCH (26-34) PG MCHC (30-36) % RDW (11.6-14.8) % Plt Count (150-400) X10^3/uL Neut % (Auto) (50-75) % Lymph % (Auto) (25-40) % Carver % (Auto) (3-14) % Eos % (Auto) (2-4) % Baso % (Auto) (0-2) % Neut # (Auto) (9060-2279) /uL Lymph # (Auto) (8738-4036) /uL Carver # (Auto) (0-900) /uL Eos # (Auto) (0-450) /uL Baso # (Auto) (0-100) /uL RBC Morphology Anisocytosis D-Dimer 2028 H (<500) ng/ml Sodium (137-145) mmol/L Potassium (3.4-5.1) mmol/L Chloride (98-107) mmol/L Carbon Dioxide (22-32) mmol/L BUN (7-17) mg/dL Creatinine (0.52-1.04) mg/dL Estimated GFR (>60) mL/min BUN/Creatinine Ratio (6-22) Glucose (80-110) mg/dL Lactate (0.7-2.1) mmol/L Calcium (8.4-10.2) mg/dL Total Bilirubin (0.2-1.3) mg/dL AST (14-36) IU/L ALT (<35) IU/L Alkaline Phosphatase (38-126) U/L Total Creatine Kinase 31 (30-135) U/L CK-MB (CK-2) TNP CK-MB (CK-2) Rel Index TNP Troponin I < 0.012 (0.01-0.034) ng/mL NT-Pro-B Natriuret Pep 09585 H (<450) pg/mL Total Protein (6.3-8.2) g/dL Albumin (3.5-5.0) g/dL Globulin (1.7-4.1) g/dL Albumin/Globulin Ratio (1.0-2.8) SARS-CoV-2 (PCR) (Negative) 01/20/22 Range/Units 10:25 WBC (4.5-11.0) X10^3/uL RBC (4.0-5.2) X10^6/uL Hgb (12.0-16.0) g/dL Hct (36-46) % MCV (80-100) fL MCH (26-34) PG MCHC (30-36) % RDW (11.6-14.8) % Plt Count (150-400) X10^3/uL Neut % (Auto) (50-75) % Lymph % (Auto) (25-40) % Carver % (Auto) (3-14) % Eos % (Auto) (2-4) % Baso % (Auto) (0-2) % Neut # (Auto) (0477-6711) /uL Lymph # (Auto) (7414-0407) /uL Carver # (Auto) (0-900) /uL Eos # (Auto) (0-450) /uL Baso # (Auto) (0-100) /uL RBC Morphology Anisocytosis D-Dimer (<500) ng/ml Sodium (137-145) mmol/L Potassium (3.4-5.1) mmol/L Chloride (98-107) mmol/L Carbon Dioxide (22-32) mmol/L BUN (7-17) mg/dL Creatinine (0.52-1.04) mg/dL Estimated GFR (>60) mL/min BUN/Creatinine Ratio (6-22) Glucose (80-110) mg/dL Lactate (0.7-2.1) mmol/L Calcium (8.4-10.2) mg/dL Total Bilirubin (0.2-1.3) mg/dL AST (14-36) IU/L ALT (<35) IU/L Alkaline Phosphatase (38-126) U/L Total Creatine Kinase (30-135) U/L CK-MB (CK-2) CK-MB (CK-2) Rel Index Troponin I (0.01-0.034) ng/mL NT-Pro-B Natriuret Pep (<450) pg/mL Total Protein (6.3-8.2) g/dL Albumin (3.5-5.0) g/dL Globulin (1.7-4.1) g/dL Albumin/Globulin Ratio (1.0-2.8) SARS-CoV-2 (PCR) Negative (Negative) Point of Care Testing Glucose POC 121 Imaging Data Chest x-ray: Radiologist's Impression: ?Cardiomegaly with interstitial prominence and minimal pleural effusions. Please correlate with patient presentation, physical examination findings, and laboratory values for congestive heart failure. ? ECG Data Attestation: I personally reviewed and interpreted this ECG as follows: (Normal sinus rhythm rate 80 beats per minute. LAD. Low voltage QRS. Old septal infarct. Old inferior infarct. No acute ST T wave changes.) Critical Care Time Critical Care Time Critical Care Time: Yes Total Critical Care Time: 50 Attestation: Critical care time included the initial patient assessment, review of past medical records, review EKG, lab in chest x-ray data. Time included clinical treatment, discussed the situation with the patient, and consultation with the admitting physician. Discharge Plan Departure Patient Disposition: Admitted As Inpatient Clinical Impression: Dyspnea, Congestive heart failure, Left ventricular systolic dysfunction (LVSD) Admit Date/Time: 01/20/22 12:20 Admit Provider: Troy Dietz
[2022-01-20 11:00] LABS: Troponin I < 0.012 ng/mL (0.01-0.034)
[2022-01-20 11:01] LABS: COVID19 -Nasal RAPID Negative (Negative)
[2022-01-20] MEDS: FUROSEMIDE 100 MG/10 ML VIAL 80 MG IV ×2 (11:28→14:44)
[2022-01-20 11:34] LABS: Anisocytosis 1+
[2022-01-20 12:14] LABS: NT-proBNP (BNP-Adult 18+) 34700 pg/mL (<450)
[2022-01-20] MEDS: HEPARIN 5,000 UNIT/ML VIAL 6200 UNIT IV (12:51)
[2022-01-20] MEDS: HEPARIN DRIP 25,000 UNIT/500 ML IV.SOLN 20 UNIT IV (12:53)
--- NOTE | 2022-01-20 14:00 | DI.NM.S_ITS ---
PROCEDURE: NM PUL VENT AND PERFUSION RADIOPHARMACEUTICAL: 35.5 mCi Tc-99m DTPA aerosol by inhalation and 8.3 mCi Tc-99m MAA intravenously. INDICATIONS: ?pulmonary embolism TECHNIQUE: Ventilation images were obtained first with Tc-99m DTPA aerosol. Subsequently, perfusion images were acquired after intravenous injection of Tc-99m MAA. Anterior, posterior, DA SILVA, MICHAEL, RPO, LPO, left and right lateral views were obtained. COMPARISON: [facility], CR, XR CHEST 2V, 01/20/2022, 10:53. FINDINGS: No perfusion defect identified in either lung. Ventilation radiopharmaceutical is aggregated/clumped within proximal airways in the right infrahilar region and left perihilar/suprahilar region. IMPRESSION: Very low probability of pulmonary embolism. Dictated by: Osvaldo Ty M.D. on 01/23/2022 at 9:14 Approved by: Osvaldo Ty M.D. on 01/23/2022 at 9:19
--- NOTE | 2022-01-20 14:22 | PT-IP ANOTE ---
PT order received. EMR reviewed but no H&P found and ER note still not completed. Talked with hospitalist if he wants pt to be seen for PT today and stated no. Eval of for tomorrow.
--- NOTE | 2022-01-20 17:13 | P.HP_ITS ---
History of Present Illness History of Present Illness Date Patient Seen: 01/20/22 Time Patient Seen: 17:00 Chief complaint: Shortness of breath Narrative: Ms. Foley is a 76W with PMH CHFrEF, CKD stage 4, DM, HTN, CAD with significant LAD disease not amenable to stenting who present sto the hospital with shortness of breath and chest pain. She states her symptoms started a coupld days ago with worsening shortness of breath. Today she started having chest pain. She has had a nonproductive cough. No fevers/chills. Of note she has had adjustments in her diuretic dose, she saw her scooping machine tender on 01/17 who had noted previously she was on higher diuretic doses with elevated creatinine and so had previously lowered her dose of torsemide to 20mg BID and metolazone 5mg twice a week. He notes that she did not want to consider dialysis and he recommended hospice care, which she has not pursued. In the ED workup was done, vitals notable for afebrile, heart rate in 80s, blood pressure 149/76. Pulse ox 97% on room air. Labs notable for WBC 5.8, hgb 12, plts 216. Na 130, BUN 41, creatinine 2.81. Trop negative. D-dimer 2028. BNP [id number]. Chest xray showed cardiomegaly with pleural effusions that were small. COVID negative. ECHO was done recently on 01/08 and showed EF 20-25% with enlarged RV with reduced function with moderate MR and TR. She was ordered for lasix and started on heparin and admitted for further treatment. Patient History Medical History Cognitive impairment COVID-19 Major depression in partial remission Myocardial infarction Osteoarthritis Plaque psoriasis Type 2 diabetes mellitus Surgical History History of appendectomy History of bilateral hip replacements History of cholecystectomy History of left knee surgery History of surgery on right wrist Family & Social History Family History Mother Congestive heart failure Brother Congestive heart failure Social History: household members family,children Prior Living Arrangements House Safety & Behavioral: Feels Safe in Current Yes Environment Been Physically Hurt or No Threatened By a Person Tobacco & Substance use: Smoking Status Never smoker alcohol intake never Substance Use Type does not use [facility] Home Medications and Allergies Home Medications Medication Instructions Recorded Confirmed Type isosorbide mononitrate 60 mg 60 mg PO QAM 06/05/21 01/20/22 History tablet,extended release 24 hr ascorbic acid (vitamin C) 500 mg 500 mg PO QAM 07/25/21 01/20/22 History chewable tablet ynoqceckqsjk-koepyhqh-oelakl tablet 1 tab PO QAM 07/25/21 01/20/22 History lorazepam 0.5 mg tablet (Ativan) 0.5 mg PO TID PRN leg spasm #10 09/18/21 01/20/22 Rx tabs cholecalciferol (vitamin D3) 25 25 mcg PO BID #180 tabs 09/22/21 01/20/22 Rx mcg (1,000 unit) tablet colestipol 1 gram tablet 1 g PO BID #180 tabs 09/22/21 01/20/22 Rx docusate sodium 100 mg capsule 100 mg PO QAM #90 caps 09/22/21 01/20/22 Rx famotidine 40 mg tablet 40 mg PO QAM #90 tabs 09/22/21 01/20/22 Rx pantoprazole 40 mg tablet,delayed 40 mg PO QAM #90 tabs 09/22/21 01/20/22 Rx release sertraline 50 mg tablet 50 mg PO QAM #90 tabs 09/22/21 01/20/22 Rx torsemide 40 mg tablet 40 mg PO BID 09/28/21 01/20/22 History linagliptin 5 mg tablet (Tradjenta) 5 mg PO DAILY 10/09/21 01/20/22 History cephalexin 250 mg capsule 250 mg PO BID #10 caps 10/12/21 01/20/22 Rx carvedilol 25 mg tablet 25 mg PO BID #180 tabs 11/08/21 01/20/22 Rx carvedilol 12.5 mg tablet (Coreg) 25 mg PO BID #90 tabs 11/29/21 01/20/22 Rx atorvastatin 40 mg tablet 40 mg PO BEDTIME #90 tabs 12/04/21 01/20/22 Rx clopidogrel 75 mg tablet 75 mg PO QAM #90 tabs 12/04/21 01/20/22 Rx one touch verio test strips #100 ea 01/02/22 01/20/22 Rx Allergies Allergy/AdvReac Type Severity Reaction Status Date / Time dimenhydrinate Allergy Verified 01/20/22 10:29 [From Dramamine] diphenhydramine AdvReac Verified 01/20/22 10:29 [From Benadryl] hydrocodone AdvReac Verified 01/20/22 10:29 Review of Systems Review of Systems Narrative: 14 systems reviewed and negative aside from what is noted in HPI Exam Vital Signs (past 8 hours): - 01/20/22 10:10 01/20/22 10:27 01/20/22 10:30 Temperature 97.3 F L Pulse Rate 82 78 Respiratory Rate 18 18 Blood Pressure 149/76 H 156/83 H Pulse Oximetry 97 97 Oxygen Delivery Method Room Air Oxygen Flow Rate 01/20/22 10:30 01/20/22 11:00 01/20/22 11:30 Temperature Pulse Rate 78 82 82 Respiratory Rate 19 16 Blood Pressure Pulse Oximetry 97 97 98 Oxygen Delivery Method Oxygen Flow Rate 01/20/22 11:45 01/20/22 11:45 01/20/22 12:00 Temperature Pulse Rate 85 Respiratory Rate Blood Pressure 152/89 H 154/92 H Pulse Oximetry 95 Oxygen Delivery Method Oxygen Flow Rate 01/20/22 12:00 01/20/22 12:30 01/20/22 12:30 Temperature Pulse Rate 81 83 Respiratory Rate 16 21 Blood Pressure 161/77 H Pulse Oximetry 97 98 Oxygen Delivery Method Oxygen Flow Rate 01/20/22 13:00 01/20/22 13:00 01/20/22 13:25 Temperature 97.8 F Pulse Rate 85 83 Respiratory Rate 18 16 Blood Pressure 162/86 H 142/90 H Pulse Oximetry 97 100 Oxygen Delivery Method Room Air Oxygen Flow Rate 0 01/20/22 14:00 Temperature Pulse Rate Respiratory Rate Blood Pressure Pulse Oximetry Oxygen Delivery Method Room Air Oxygen Flow Rate Oxygen Delivery Method Room Air Oxygen Flow Rate 0 Narrative Exam Narrative: GEN: no acute distress HEENT: moist mucous membranes, PERRL NECK: trachea midline, no JVD PULM: crackles bilaterally CV: regular rate and rhythm, no murmurs ABD: soft, nontender, nondistended, no organomegaly EXT: warm and well perfused with no edema NEURO: awake, alert, no focal deficits Objective Labs Result Diagrams: 01/20/22 10:24 01/20/22 10:24 Labs: Laboratory Results - last 24 hr 01/20/22 01/20/22 01/20/22 10:24 10:24 10:24 WBC 5.8 RBC 4.41 Hgb 12.0 Hct 37.0 MCV 84.0 MCH 27.3 MCHC 32.5 RDW 14.3 Plt Count 216 Neut % (Auto) 76.6 H Lymph % (Auto) 12.7 L Davidson % (Auto) 9.3 Eos % (Auto) 0.9 L Baso % (Auto) 0.5 Neut # (Auto) 4400 Lymph # (Auto) 700 L Davidson # (Auto) 500 Eos # (Auto) 100 Baso # (Auto) 0 RBC Morphology See below Anisocytosis 1+ H D-Dimer Sodium 130 L Potassium 4.3 Chloride 90 L Carbon Dioxide 27 BUN 41 H Creatinine 2.81 H Estimated GFR 17 L BUN/Creatinine Ratio 14.6 Glucose 110 Lactate 1.3 Calcium 9.0 Total Bilirubin 0.5 AST 25 ALT 15 Alkaline Phosphatase 147 H Total Creatine Kinase CK-MB (CK-2) CK-MB (CK-2) Rel Index Troponin I NT-Pro-B Natriuret Pep Total Protein 7.2 Albumin 4.0 Globulin 3.2 Albumin/Globulin Ratio 1.3 SARS-CoV-2 (PCR) 01/20/22 01/20/22 01/20/22 10:24 10:24 10:24 WBC RBC Hgb Hct MCV MCH MCHC RDW Plt Count Neut % (Auto) Lymph % (Auto) Davidson % (Auto) Eos % (Auto) Baso % (Auto) Neut # (Auto) Lymph # (Auto) Davidson # (Auto) Eos # (Auto) Baso # (Auto) RBC Morphology Anisocytosis D-Dimer 2028 H Sodium Potassium Chloride Carbon Dioxide BUN Creatinine Estimated GFR BUN/Creatinine Ratio Glucose Lactate Calcium Total Bilirubin AST ALT Alkaline Phosphatase Total Creatine Kinase 31 CK-MB (CK-2) TNP CK-MB (CK-2) Rel Index TNP Troponin I < 0.012 NT-Pro-B Natriuret Pep 90124 H Total Protein Albumin Globulin Albumin/Globulin Ratio SARS-CoV-2 (PCR) 01/20/22 10:25 WBC RBC Hgb Hct MCV MCH MCHC RDW Plt Count Neut % (Auto) Lymph % (Auto) Davidson % (Auto) Eos % (Auto) Baso % (Auto) Neut # (Auto) Lymph # (Auto) Davidson # (Auto) Eos # (Auto) Baso # (Auto) RBC Morphology Anisocytosis D-Dimer Sodium Potassium Chloride Carbon Dioxide BUN Creatinine Estimated GFR BUN/Creatinine Ratio Glucose Lactate Calcium Total Bilirubin AST ALT Alkaline Phosphatase Total Creatine Kinase CK-MB (CK-2) CK-MB (CK-2) Rel Index Troponin I NT-Pro-B Natriuret Pep Total Protein Albumin Globulin Albumin/Globulin Ratio SARS-CoV-2 (PCR) Negative Assessment & Plan Assessment & Plan narrative: 1. Acute dyspnea and chest pain -etiology is most likely CHFrEF exacerbation, but higher than baseline d-dimer can not rule out PE -trend troponins, first trop negative -BNP >[id number], chest xray with fluid overload consistent with acute CHF exacerb ation -recent ECHO showed EF 20-25%, currently a repeat not indicated -with elevated d-dimer PE on differential -avoid CTA now, patient would not want dialysis -plan for vq scan -empiric heparin gtt to treat for PE until able to rule out 2. CKD stage 4 -creatinine on admission 2.7 -monitor closely with diuresis -nephrology recommended possible hospice for patient, and would agree as she has difficulty with achieving euvolemia and not being in CHF exacerbation or renal failure 3. TYpe 2 DM -hold oral medications -place on insulin sliding scale Suspect patient will need two midnights to improve respiratory symptoms and rule out PE CODE: DNR/DNI Proxy: Mago Giang, daughter I have utilized all available resources to reconcile the patient's home medications Time Spent With Patient Critical Care time: I spent a total of [] minutes of critical care time on this patient's care today; this time is exclusive of procedural time. Quality VTE Deep Vein Thrombosis/Pulmonary Embolism Present on Admission: No MIPS - Admit I confirm the patient?s Advance Care Plan is present, Code status is documented, Surrogate decision maker is in patient?s record [If Yes, STOP here]: Yes
[2022-01-20] MEDS: CLOPIDOGREL 75 MG TABLET PO (17:31)
[2022-01-20] MEDS: ISOSORBIDE MONONITRATE ER 30 MG TABLET 60 MG PO (17:31)
[2022-01-20] MEDS: SERTRALINE 50 MG TABLET PO (17:31)
[2022-01-20 18:32] LABS: Troponin I < 0.012 ng/mL (0.01-0.034)
[2022-01-20 18:41] LABS: PTT Partial Thromboplastin Tim 180 SECONDS (26-36)
[2022-01-20] MEDS: ATORVASTATIN 20 MG TABLET 40 MG PO (20:29)
[2022-01-20] MEDS: ACETAMINOPHEN 325 MG TABLET 650 MG PO (20:29)
[2022-01-21] VITALS (8 sets, daily range): BP systolic 124–136; BP diastolic 67–87; PULSE 75–86; RESP 16–22; TEMP 36.1–36.8; O2SAT 93–97
[2022-01-21] MEDS: FUROSEMIDE 100 MG/10 ML VIAL 80 MG IV ×2 (01:37→13:39)
[2022-01-21 02:41] LABS: PTT Partial Thromboplastin Tim 45 SECONDS (26-36)
[2022-01-21] MEDS: HEPARIN 5,000 UNIT/ML VIAL 2000 UNIT IV ×2 (03:04→19:35)
[2022-01-21 06:05] LABS: BUN Creatinine Ratio 16.7 (6-22); Blood Urea Nitrogen 43 mg/dL (7-17); Calcium 8.5 mg/dL (8.4-10.2); Carbon Dioxide 30 mmol/L (22-32); Chloride 89 mmol/L (98-107); Estimated Glomerular Filt Rate 19 mL/min (>60); Glucose 109 mg/dL (80-110); HEMOLYSIS < 15 (0-50); Magnesium 1.7 mg/dL (1.6-2.3); Phosphorous 4.4 mg/dL (2.8-4.1); Potassium 3.4 mmol/L (3.4-5.1); Sodium 129 mmol/L (137-145)
[2022-01-21 06:12] LABS: Basophils Absolute Auto 0 /uL (0-100); Basophils Percent Auto 0.8 % (0-2); Eosinophils Absolute Auto 100 /uL (0-450); Eosinophils Percent Auto 1.7 % (2-4); Hematocrit 31.5 % (36-46); Hemoglobin 10.5 g/dL (12.0-16.0); Lymphocytes Absolute Auto 900 /uL (1100-4500); Mean Corpuscular HGB Conc 33.2 % (30-36); Mean Corpuscular Hemoglobin 27.6 PG (26-34); Monocytes Absolute Auto 400 /uL (0-900); Monocytes Percent Auto 9.9 % (3-14); Neutrophils Absolute Auto 2900 /uL (1500-7000); Neutrophils Percent Auto 66.6 % (50-75); Platelet Count 181 X10^3/uL (150-400); White Blood Cell Count 4.3 X10^3/uL (4.5-11.0)
[2022-01-21 06:13] LABS: Add Manual Diff / Slide Review SLIDE REVIEW
[2022-01-21 06:16] LABS: Troponin I < 0.012 ng/mL (0.01-0.034)
[2022-01-21 07:10] LABS: Anisocytosis 1+
[2022-01-21] MEDS: SERTRALINE 50 MG TABLET PO (08:46)
[2022-01-21] MEDS: ISOSORBIDE MONONITRATE ER 30 MG TABLET 60 MG PO (08:46)
[2022-01-21] MEDS: CLOPIDOGREL 75 MG TABLET PO (08:46)
--- NOTE | 2022-01-21 09:27 | CM.DANOTE ---
DCP: Case received, EMR reviewed and met with patient. Introduced self and role. Was able to obtain information regarding patient's baseline activity level at home and her current living situation. DCP assessment completed with information currently available. Patient is a 76 year old female who admitted yesterday afternoon to the care of the hospitalist team. PCP: Dr. Ibrahim. Payer: confirmed: [employer] [place]. Patient came the hospital via private vehicle secondary to having some increased dyspnea. Patient had also noted an increase in weight gain. She was diagnosed with CHF, and placed on Lasix. Patient had also been complaining of chest pain. Patient has seen pet handler, and patient has indicated that she does not want dialysis. Hospice care was recommended. Patient has history of CKD stage 4, and cognitive deficits. Met briefly with patient in her room. She is pleasant, and was sitting on the edge of her bed. Confirmed that she lives with daughter, Mago, and her spouse, and uses a FWW at home. Patient had been here in September as well. She does not drive, stated that she does take he own showers. P: DCP to continue to follow. Will discuss at team rounds if patient is appropriate for hospice. Patient is also to be working with P.T. Evelyn Rolon RN/Vp Digital Marketing Discharge Planning/Care Management Discharge Assessment Start: 01/21/22 09:25 Freq: Status: Active Protocol: Document 01/21/22 09:25 (Rec: 01/21/22 09:27 [id number]) Discharge Planning Assessment Assigned Control Room Helper Evelyn Rolon RN/Vp Digital Marketing Advance Directives? Yes Advance Directives on File Yes History Provided By Patient,Medical Record Prior Living Arrangements House Household Members family,children Type of transporation used prior to Relies on Others admit Independent with ADL's Yes Is patient alert and oriented? History of cognitive deficits, aware of self, place. Needs Assistance With Meal Prep,Home Chores / Shopping Caregiver for Another No DME Already Rented / Owned FWW / Walker Comment Patient uses devices: Cane, FWW or Wheel chair as needed Barriers to Discharge No Comment Patient resides with supportive family Discharge Plan Home Transportation Arrangement Daughter POV Referrals Initiated Other Additional Comment Will see how patient does with P.T. Whiteboard Updated in Patient Room with Yes name and ext. # of Control Room Helper Review Status In Process Next Review Type Continued Stay Review
[2022-01-21 10:29] LABS: PTT Partial Thromboplastin Tim 52 SECONDS (26-36)
--- NOTE | 2022-01-21 10:38 | PT.IIE ---
Surgical History (Last Reviewed 01/20/22 @ 20:42 by Navid Murillo MD) History of appendectomy History of bilateral hip replacements History of cholecystectomy History of left knee surgery History of surgery on right wrist Medical History (Last Reviewed 01/20/22 @ 20:42 by Navid Murillo MD) Cognitive impairment COVID-19 Major depression in partial remission Myocardial infarction Osteoarthritis Plaque psoriasis Type 2 diabetes mellitus Physical Therapy Inpatient Evaluation/Re-Eval M1 PT/OT-IP Prior Functional Status Start: 01/21/22 08:49 Freq: NEEDED Status: Active Protocol: Document 01/21/22 10:38 AW (Rec: 01/21/22 11:07 AW [id number]) Medical Review Prior Functional Status Medical History Reviewed Yes Communication WNL. Pt is an effective verbal communicator. Mobility and Gait Frances uses a 4WW around the house. She is able to get to the car with [employer]. She has a manual wheelchair for longer distances Activities of Daily Living and IADL's Independent with dressing and toileting tasks. Pt has SBA for showers but is able to get in/out and do her own washing /drying. Pt does not drive. Prior Functional Level (Other details) Pt denies falls in the past one year but when pressed, she admits to at least one episode of syncope in the past few months. Social History Household Members family,children Living Arrangements House Number of Floors (Floors) Two Floors Number of Stairs To Enter/Railing? 1 tall step to enter, no rail. Pt is able to get up the step with assist from her son-in- law. Home Environment Standard Height Toilet,Tub/ Shower Doors Home Equipment Four Wheel Walker,Manual Wheelchair,Tub Transfer Bench, Shower Seat without Backrest Additional Social History Comment Pt's bed is tall. She has a step stool with a handle to get in/out. She lives with her supportive daughter and son- in-law. M2 PT-IP Current Condition Start: 01/21/22 08:49 Freq: NEEDED Status: Active Protocol: Document 01/21/22 10:38 AW (Rec: 01/21/22 11:07 AW [id number]) Physical Therapy Current Condition Current Condition Evaluation Date 01/21/22 Treatment Diagnosis CHF exacerbation vs PE, impaired mobility Onset Date 01/18/22 M3 PT-IP Subjective Start: 01/21/22 08:49 Freq: NEEDED Status: Active Protocol: Document 01/21/22 10:38 AW (Rec: 01/21/22 11:07 AW [id number]) Subjective Physical Therapy Visit Type Type Initial Evaluation Visit Start Time 10:16 Visit Stop Time 10:38 Total Visit Minutes 22 Notes Pt's daughter, Vivian, is present throughout evaluation. Physical Therapy Visit Comments Patient Comments Pt is willing to participate with PT Patient Goals Return home with family support. Therapy Pain Assessment Pain When Pain Assessed During Mobility Pain Present Pain Present Denied Pain Location Chest Scale Used pt denies chest pain M4 PT-IP Mobility and Gait Start: 01/21/22 08:49 Freq: NEEDED Status: Active Protocol: Document 01/21/22 10:38 AW (Rec: 01/21/22 11:07 AW [id number]) PT-Bed Mobility Assessment Supine to Sit Supine to Sit Standby Assistance PT-Transfer Assessment Sit to and From Stand Sit to and from Stand Standby Assistance,Use of Upper Extremities Equipment Transfer Assistive Device Gait Belt,Front Wheeled Walker Orthotic/Prosthetic Devices or Brace: No Transfers Transfer Destination Chair,Toilet Transfer Technique pt amb with FWW Transfer Ability Level of Assist Standby Assistance,Contact Guard Assistance Comments Mobility Comments Pt was lying in bed as PT arrived. Orthostatic VS were taken (negative) and documented separately. Pt was able to sit up from supine SBA . Sitting balance was good. She stood SBA and used FWW to transfer to the chair SBA. Pt reported lightheadedness in standing after one minute but BP was stable. Symptoms cleared and pt requested to use the toilet. She stood SBA and used FWW to walk to the toiletm, transferring CGA. No SOB was noted. Pt was left on the toilet with call leiva in reach. Pt agreed to call nursing for assist. Gait Assessment Gait Gait Assistance Required: Standby Assistance,Contact Guard Assist Distance (Feet) 15 Assistive Devices Assistive Device Gait Belt,Front Wheeled Walker Orthotic/Prosthetic Devices or Brace: No Gait Deviations General Gait Pattern Decreased Stride Length, Decreased Feet Clearance, Flexed Trunk Factors Limiting Gait Function Factors Limiting Gait Function Decreased Activity Tolerance Comments Gait Comments Pt walks with flexed posture and short steps but no SOB noted during short distance walk. Stair Climbing Assessment Comments Stair Climbing Comments Not assessed. PT-Balance Assessment Sitting Balance and Reactions Static Sitting Balance Ability Good Dynamic Sitting Balance Ability Good Standing Balance and Reactions Static Standing Balance Ability Fair Dynamic Standing Balance Ability Fair Device Used FWW M5 PT-IP Objective Assessments Start: 01/21/22 08:49 Freq: NEEDED Status: Active Protocol: Document 01/21/22 10:38 AW (Rec: 01/21/22 11:07 AW [id number]) Orientation Orientation/Cognition Level of Alertness Alert Orientation Name,Day of Week,Place, Situation Language Function Ability No Deficits Noted Safety Awareness Understands Safety Issues Gross Range of Motion Lower Extremity ROM Assessment Within Functional Limits Strength Lower Extremity Strength Assessment Within Functional Limits Hip 4/5 Knee 5/5 Ankle 5/5 DF; Sensation Assessment Sensation Gross Sensation WNL Muscle Tone Muscle Tone WNL Yes M6 PT-IP Treatment Start: 01/21/22 08:49 Freq: NEEDED Status: Active Protocol: Document 01/21/22 10:38 AW (Rec: 01/21/22 11:07 AW [id number]) Physical Therapy Treatment Education Education Provided Safety M7 PT-IP Assessment and Plan Start: 01/21/22 08:49 Freq: NEEDED Status: Active Protocol: Document 01/21/22 10:38 AW (Rec: 01/21/22 11:07 AW [id number]) PT Summary Assessment and Plan Potential Rehabilitation Potential Good Status of Condition at Evaluation Evolving Summary Impairments Balance,Transfers,Gait, Activity Tolerance Assessment Summary Frances is a 76 yo woman with complex medical history including CHFrEF and CKD stage 4. She has a significant falls history with multiple fractures but pt denies falls in the past one year. However, she does admit to at least one syncopal event in that time frame. PLOF: Modified independent for household distances with 4WW. Pt needs assist to manage tall step at home entrance and needs hand- hold assist to get to the car. CLOF: Pt requiring SBA/CGA for short distance gait in the room with FWW. No SOB noted. Orthostatic VS were stable/ negative. Pt is likely near her functional baseline but would benefit from further acute PT to assess functional gait distances and stair navigation to ensure safe discharge home with assist. Goals Bed Mobility Goal Independent Transfer Goal Independent,Four Wheeled Walker Gait Goal Independent,Four Wheel Walker Gait Distance 100 Other Goals - up/down platform step CGA/ [employer] Days to Meet Goals 2 Frequency of Treatment Frequency Of Treatment Once a Day Treatment Plan Physical Therapy Treatment Plan Bed Mobility Training,Transfer Training,Gait Training, Therapeutic Exercise,Balance Retraining,Discharge Planning, Hot or Cold Pack,Neuromuscular Re-ed Other Recommendations and Next Treatment gait with 4WW Focus Precautions Other Precautions falls history Recommendations To Nursing Amount of Assist Needed 1 Person Assist Discharge Recommendations PT Discharge Recommendations Home with Assistance,Home with 24/ Assist Available Transportation Needs at Discharge Private Vehicle
[2022-01-21] MEDS: ACETAMINOPHEN 325 MG TABLET 650 MG PO ×2 (11:16→23:29)
[2022-01-21] MEDS: INSULIN LISPRO 100 UNIT/ML 3ML VIAL SUBCUT (12:40)
--- NOTE | 2022-01-21 16:53 | P.PN_ITS ---
Subjective Subjective Date Patient Seen: 01/21/22 Interval history: Patient feeling improved today. Not on oxygen currently. Remains on heparin infusion until v/q scan can be performed. Exam Vital Signs (past 8 hours): - 01/21/22 10:30 01/21/22 11:26 01/21/22 16:39 Temperature 97.7 F 98.2 F Pulse Rate 84 82 Pulse Rate [Orthostatic Lying] 78 Pulse Rate [Orthostatic Sitting] 85 Pulse Rate [Orthostatic Standing] 86 Respiratory Rate 22 16 Blood Pressure 131/87 124/68 Blood Pressure [Orthostatic Lying] 129/69 Blood Pressure [Orthostatic Sitting] 126/69 Blood Pressure [Orthostatic Standing] 125/67 Pulse Oximetry 97 97 Oxygen Flow Rate 0 0 Oxygen Delivery Method Room Air Oxygen Flow Rate 0 Narrative Exam Narrative: GEN: no acute distress HEENT: moist mucous membranes, PERRL NECK: trachea midline, no JVD PULM: crackles bilaterally CV: regular rate and rhythm, no murmurs ABD: soft, nontender, nondistended, no organomegaly EXT: warm and well perfused with no edema NEURO: awake, alert, no focal deficits Objective Labs Result Diagrams: 01/21/22 05:45 01/21/22 05:45 Labs: Laboratory Results - last 24 hr 01/20/22 01/20/22 01/21/22 18:00 18:00 02:27 WBC RBC Hgb Hct MCV MCH MCHC RDW Plt Count Neut % (Auto) Lymph % (Auto) [place] % (Auto) Eos % (Auto) Baso % (Auto) Neut # (Auto) Lymph # (Auto) [place] # (Auto) Eos # (Auto) Baso # (Auto) RBC Morphology Anisocytosis APTT 180 H* 45 H D Sodium Potassium Chloride Carbon Dioxide BUN Creatinine Estimated GFR BUN/Creatinine Ratio Glucose Calcium Phosphorus Magnesium Troponin I < 0.012 01/21/22 01/21/22 01/21/22 05:45 05:45 05:45 WBC 4.3 L RBC 3.80 L Hgb 10.5 L Hct 31.5 L MCV 83.0 MCH 27.6 MCHC 33.2 RDW 14.0 Plt Count 181 Neut % (Auto) 66.6 Lymph % (Auto) 21.0 L [place] % (Auto) 9.9 Eos % (Auto) 1.7 L Baso % (Auto) 0.8 Neut # (Auto) 2900 Lymph # (Auto) 900 L [place] # (Auto) 400 Eos # (Auto) 100 Baso # (Auto) 0 RBC Morphology See below Anisocytosis 1+ H APTT Sodium 129 L Potassium 3.4 Chloride 89 L Carbon Dioxide 30 BUN 43 H Creatinine 2.58 H Estimated GFR 19 L BUN/Creatinine Ratio 16.7 Glucose 109 Calcium 8.5 Phosphorus 4.4 H Magnesium 1.7 Troponin I < 0.012 01/21/22 10:05 WBC RBC Hgb Hct MCV MCH MCHC RDW Plt Count Neut % (Auto) Lymph % (Auto) [place] % (Auto) Eos % (Auto) Baso % (Auto) Neut # (Auto) Lymph # (Auto) [place] # (Auto) Eos # (Auto) Baso # (Auto) RBC Morphology Anisocytosis APTT 52 H D Sodium Potassium Chloride Carbon Dioxide BUN Creatinine Estimated GFR BUN/Creatinine Ratio Glucose Calcium Phosphorus Magnesium Troponin I PFSH Medical History Cognitive impairment COVID-19 Major depression in partial remission Myocardial infarction Osteoarthritis Plaque psoriasis Type 2 diabetes mellitus Surgical History History of appendectomy History of bilateral hip replacements History of cholecystectomy History of left knee surgery History of surgery on right wrist Family History Mother Congestive heart failure Brother Congestive heart failure Social History household members: family and children Smoking Status: Never smoker alcohol intake: never Assessment & Plan Assessment & Plan narrative: 1. Acute dyspnea and chest pain -etiology is most likely CHFrEF exacerbation, but higher than baseline d-dimer can not rule out PE -troponins unremarkable. -BNP >86754, chest xray with fluid overload consistent with acute CHF exacerbation -recent ECHO showed EF 20-25%, currently a repeat not indicated -with elevated d-dimer PE on differential, given CKD avoid CTA. Plan for V/Q scan tomorrow, continued on empiric heparin therapy for PE until scan. 2. CKD stage 4 -creatinine on admission 2.7 -monitor closely with diuresis, improved today. -nephrology recommended possible hospice for patient, and would agree as she has difficulty with achieving euvolemia and not being in CHF exacerbation or renal failure -discussed today as well and talked about hospice and provided information, would like to see how she is feeling after diuresis. She is not interested in discharge to SNF. 3. TYpe 2 DM -hold oral medications -place on insulin sliding scale CODE: DNR/DNI Proxy: Mago Giang, daughter I have utilized all available resources to reconcile the patient's home m edications Time Spent With Patient Critical Care time: I spent a total of [] minutes of critical care time on this patient's care today; this time is exclusive of procedural time. Quality VTE Deep Vein Thrombosis/Pulmonary Embolism Present on Admission: No
[2022-01-21] MEDS: ATORVASTATIN 20 MG TABLET 40 MG PO (20:06)
[2022-01-21] MEDS: HEPARIN DRIP 25,000 UNIT/500 ML IV.SOLN 18 UNIT IV (21:46)
--- NOTE | 2022-01-21 23:21 | PC.NURSE ---
Addendum entered by Gallo Guadalupe R.N. 01/22/22 01:50: 0120 PTT is 69, per protocol next PTT check is 01/23 0500. Orders placed. Addendum entered by Gallo Guadalupe R.N. 01/22/22 01:31: Pt stating 7/10 back pain, tylenol given as only pain med available w/ physician instructions can be used for moderate/severe pain as well. Ice pack placed on back. Per patient this relieved pain. Original Note: Pt very [place], sometimes forgetful. Heparin running at 900 units/hr OR 18mls/hr. Pt ambulated to bedside commode very well w/o SOB.
[2022-01-22] VITALS: BP 134/71; PULSE 86; RESP 16; TEMP 36.6; O2SAT 96
[2022-01-22] MEDS: FUROSEMIDE 100 MG/10 ML VIAL 80 MG IV (01:09)
[2022-01-22 01:35] LABS: PTT Partial Thromboplastin Tim 69 SECONDS (26-36)
[2022-01-22 04:00] VITALS: BP 144/79; PULSE 86; RESP 18; TEMP 36.3; O2SAT 96
[2022-01-22 08:00] VITALS: BP 142/82; PULSE 83; RESP 16; TEMP 36.7; O2SAT 98
--- NOTE | 2022-01-22 08:31 | PC.NURSE ---
Patient sitting up in bed this morning looking at her phone. Comfortable and denies pain, denies shortness of breath. Heparin gtt infusing as ordered. Call light within reach. Continue to monitor.
[2022-01-22] MEDS: INSULIN LISPRO 100 UNIT/ML 3ML VIAL SUBCUT ×2 (08:57→17:30)
[2022-01-22] MEDS: ISOSORBIDE MONONITRATE ER 30 MG TABLET 60 MG PO (08:57)
[2022-01-22] MEDS: CLOPIDOGREL 75 MG TABLET PO (08:57)
[2022-01-22] MEDS: SERTRALINE 50 MG TABLET PO (08:57)
--- NOTE | 2022-01-22 10:24 | CM.DPC ---
DCP Cont: Pt was discussed in rounds this AM. Per Dr. Noble, pt is in need of a VQ scan and it cannot be done until tomorrow. Pt still on heparin drip. DCP inquired about potential hospice and at this time, MD does not feel like this is appropriate. Per MD, hospice was mentioned more so for resources than comfort but pt has declined at this time. DCP to continue to follow and provide support where needed. Iris Durham RN/DCP
[2022-01-22 12:00] VITALS: BP 134/70; PULSE 85; RESP 19; TEMP 36.6; O2SAT 97
--- NOTE | 2022-01-22 12:18 | PT.IPTN ---
Current Diagnoses Acute on chronic diastolic (congestive) heart failure (01/20/22) Physical Therapy Treatment Note M2 PT-IP Current Condition Start: 01/21/22 08:49 Freq: NEEDED Status: Active Protocol: Document 01/21/22 10:38 AW (Rec: 01/21/22 11:07 AW [id number]) Physical Therapy Current Condition Current Condition Evaluation Date 01/21/22 Treatment Diagnosis CHF exacerbation vs PE, impaired mobility Onset Date 01/18/22 M3 PT-IP Subjective Start: 01/21/22 08:49 Freq: NEEDED Status: Active Protocol: Document 01/22/22 12:18 AW (Rec: 01/22/22 12:49 AW [id number]) Subjective Physical Therapy Visit Type Type Treatment Note Visit Start Time 12:04 Visit Stop Time 12:18 Total Visit Minutes 14 Physical Therapy Visit Comments Patient Comments Pt is feeling down today but is willing to participate with PT Therapy Pain Assessment Pain When Pain Assessed During Mobility Pain Present Pain Present Pain Reported Location back Scale Used not quantified M4 PT-IP Mobility and Gait Start: 01/21/22 08:49 Freq: NEEDED Status: Active Protocol: Document 01/22/22 12:18 AW (Rec: 01/22/22 12:49 AW [id number]) PT-Transfer Assessment Sit to and From Stand Sit to and from Stand Standby Assistance,Use of Upper Extremities Equipment Transfer Assistive Device Gait Belt,4 Wheeled Walker Orthotic/Prosthetic Devices or Brace: No Transfers Transfer Destination Chair Transfer Technique pt amb with 4WW Transfer Ability Level of Assist Standby Assistance Comments Mobility Comments Pt was sitting up in the chair as PT arrived. BP 142/82 HR 81. Pt stood SBA and used 4WW to ambulate 150' SBA without LOB and without any report of lightheadedness. As pt returned to the room, she sat on the chair for a brief rest. She then completed 5x sit to stand twice. Pt was left with call light in reach as lunch trays were being passed. Gait Assessment Gait Gait Assistance Required: Standby Assistance Distance (Feet) 150 Assistive Devices Assistive Device Gait Belt,4 Wheeled Walker Orthotic/Prosthetic Devices or Brace: No Gait Deviations General Gait Pattern Antalgic,Decreased Stride Length,Decreased Feet Clearance,Flexed Trunk Factors Limiting Gait Function Factors Limiting Gait Function Decreased Activity Tolerance Comments Gait Comments No SOB or lightheadedness during gait with 4WW today. Stair Climbing Assessment Comments Stair Climbing Comments Not assessed. PT-Balance Assessment Sitting Balance and Reactions Static Sitting Balance Ability Good Dynamic Sitting Balance Ability Good Standing Balance and Reactions Static Standing Balance Ability Good Dynamic Standing Balance Ability Fair Device Used FWW Functional Assessments Functional Tests 5 Times Sit to Stand 2 reps with BUE push off - 17. 7 seconds, 14.8 seconds M5 PT-IP Objective Assessments Start: 01/21/22 08:49 Freq: NEEDED Status: Active Protocol: Document 01/21/22 10:38 AW (Rec: 01/21/22 11:07 AW [id number]) Orientation Orientation/Cognition Level of Alertness Alert Orientation Name,Day of Week,Place, Situation Language Function Ability No Deficits Noted Safety Awareness Understands Safety Issues Gross Range of Motion Lower Extremity ROM Assessment Within Functional Limits Strength Lower Extremity Strength Assessment Within Functional Limits Hip 4/5 Knee 5/5 Ankle 5/5 DF; Sensation Assessment Sensation Gross Sensation WNL Muscle Tone Muscle Tone WNL Yes M6 PT-IP Treatment Start: 01/21/22 08:49 Freq: NEEDED Status: Active Protocol: Document 01/22/22 12:18 AW (Rec: 01/22/22 12:49 AW [id number]) Physical Therapy Treatment Education Education Provided Safety Other Treatments Other Treatment Performed Educated pt on importance of continued mobility and encouraged her to walk with nursing later in the day. M7 PT-IP Assessment and Plan Start: 01/21/22 08:49 Freq: NEEDED Status: Active Protocol: Document 01/22/22 12:18 AW (Rec: 01/22/22 12:49 AW [id number]) PT Summary Assessment and Plan Potential Rehabilitation Potential Good Status of Condition at Evaluation Evolving Summary Impairments Balance,Transfers,Gait, Activity Tolerance Assessment Summary Frances tolerated longer distance gait today with SBA. There were no overt signs of LOB or SOB and pt denied lightheadedness. Pt is likely near her functional baseline but would benefit from further acute PT to maintain functional gait distances and stair navigation to ensure safe discharge home with assist. Goals Bed Mobility Goal Independent Transfer Goal Independent,Four Wheeled Walker Gait Goal Independent,Four Wheel Walker Gait Distance 100 Other Goals - up/down platform step CGA/ [employer] Days to Meet Goals 2 Frequency of Treatment Frequency Of Treatment Once a Day Treatment Plan Physical Therapy Treatment Plan Bed Mobility Training,Transfer Training,Gait Training, Therapeutic Exercise,Balance Retraining,Discharge Planning, Hot or Cold Pack,Neuromuscular Re-ed Other Recommendations and Next Treatment gait with 4WW, platform step, Focus consider practicing entering tall bed using step with handle to mimic home set up Precautions Other Precautions falls history Recommendations To Nursing Amount of Assist Needed 1 Person Assist Discharge Recommendations PT Discharge Recommendations Home with Assistance,Home with 24/7 Assist Available Transportation Needs at Discharge Private Vehicle
--- NOTE | 2022-01-22 15:04 | PM.PN.1 ---
Subjective Subjective Date Patient Seen: 01/22/22 Interval history: Patient feeling improved today. Not on oxygen currently. Remains on heparin infusion until v/q scan can be performed. Exam Vital Signs (past 8 hours): - 01/22/22 08:00 01/22/22 08:00 01/22/22 12:00 Temperature 98.1 F 97.9 F Pulse Rate 83 85 Respiratory Rate 16 19 Blood Pressure 142/82 H 134/70 Pulse Oximetry 98 97 Oxygen Delivery Method Room Air Oxygen Flow Rate 0 0 Oxygen Delivery Method Room Air Oxygen Flow Rate 0 Narrative Exam Narrative: GEN: no acute distress HEENT: moist mucous membranes, PERRL NECK: trachea midline, no JVD PULM: crackles bilaterally CV: regular rate and rhythm, no murmurs ABD: soft, nontender, nondistended, no organomegaly EXT: warm and well perfused with no edema NEURO: awake, alert, no focal deficits Objective Labs Result Diagrams: 01/21/22 05:45 01/21/22 05:45 Labs: Laboratory Results - last 24 hr 01/22/22 01:20 APTT 69 H D PFSH Medical History Cognitive impairment COVID-19 Major depression in partial remission Myocardial infarction Osteoarthritis Plaque psoriasis Type 2 diabetes mellitus Surgical History History of appendectomy History of bilateral hip replacements History of cholecystectomy History of left knee surgery History of surgery on right wrist Family History Mother Congestive heart failure Brother Congestive heart failure Social History household members: family and children Smoking Status: Never smoker alcohol intake: never Assessment & Plan Assessment & Plan narrative: 1. Acute dyspnea and chest pain -etiology is most likely CHFrEF exacerbation, but higher than baseline d-dimer can not rule out PE -troponins unremarkable. -BNP >18295, chest xray with fluid overload consistent with acute CHF exacerbation -recent ECHO showed EF 20-25%, currently a repeat not indicated -with elevated d-dimer PE on differential, given CKD avoid CTA. Plan for V/Q scan tomorrow, continued on empiric heparin therapy for PE until scan. 2. CKD stage 4 -creatinine on admission 2.7 -monitor closely with diuresis, improved today. -nephrology recommended possible hospice for patient, and would agree as she has difficulty with achieving euvolemia and not being in CHF exacerbation or renal failure -discussed today as well and talked about hospice and provided information, would like to see how she is feeling after diuresis. She is not interested in discharge to SNF. 3. TYpe 2 DM -hold oral medications -place on insulin sliding scale CODE: DNR/DNI Proxy: Mago Giang, daughter I have utilized all available resources to reconcile the patient's home medications Time Spent With Patient Critical Care time: I spent a total of [] minutes of critical care time on this patient's care today; this time is exclusive of procedural time. Quality VTE Deep Vein Thrombosis/Pulmonary Embolism Present on Admission: No
[2022-01-22 16:30] VITALS: BP 144/74; PULSE 98; RESP 17; TEMP 36.8; O2SAT 96
[2022-01-22] MEDS: FUROSEMIDE 20 MG TABLET PO (17:09)
[2022-01-22 20:00] VITALS: BP 151/83; PULSE 100; RESP 19; TEMP 37; O2SAT 98
[2022-01-22] MEDS: ATORVASTATIN 20 MG TABLET 40 MG PO (20:45)
--- NOTE | 2022-01-22 22:35 | PC.NURSE ---
Patient is alert and oriented. Breath sounds CTA with RA sat of 98%; denies SOB. HRR w/telemetry reading of SR w/1st degree AVB; denies chest pain. Denies nausea. BT present and states she is passing flatus. Has urinary urgency/frequency related to use of diuretics but denies burning or incontinence. Is able to move herself in bed. Out of bed using walker and SBA; denies weakness. Denies any pain/discomfort. Fall risk score is high and bed alarm is activated.
[2022-01-23] VITALS: BP 152/93; PULSE 100; RESP 19; TEMP 36.8; O2SAT 97
[2022-01-23] MEDS: HEPARIN DRIP 25,000 UNIT/500 ML IV.SOLN 18 UNIT IV (02:26)
[2022-01-23 04:00] VITALS: BP 141/88; PULSE 108; RESP 17; TEMP 36.2; O2SAT 95
[2022-01-23 06:16] LABS: PTT Partial Thromboplastin Tim 71 SECONDS (26-36)
[2022-01-23 06:20] LABS: Add Manual Diff / Slide Review SLIDE REVIEW; Alanine Aminotransferase 14 IU/L (<35); Albumin 4.1 g/dL (3.5-5.0); Albumin Globulin Ratio 1.2 (1.0-2.8); Alkaline Phosphatase 139 U/L (38-126); Aspartate Aminotransferase 26 IU/L (14-36); Basophils Absolute Auto 0 /uL (0-100); Basophils Percent Auto 0.7 % (0-2); Bilirubin Total 0.5 mg/dL (0.2-1.3); Blood Urea Nitrogen 38 mg/dL (7-17); Calcium 8.7 mg/dL (8.4-10.2); Carbon Dioxide 34 mmol/L (22-32); Chloride 88 mmol/L (98-107); Eosinophils Absolute Auto 100 /uL (0-450); Eosinophils Percent Auto 1.9 % (2-4); Estimated Glomerular Filt Rate 22 mL/min (>60); Globulin 3.4 g/dL (1.7-4.1); Glucose 113 mg/dL (80-110); HEMOLYSIS < 15 (0-50); Hematocrit 34.4 % (36-46); Hemoglobin 11.5 g/dL (12.0-16.0); Lymphocytes Absolute Auto 800 /uL (1100-4500); Lymphocytes Percent Auto 15.6 % (25-40); Magnesium 1.4 mg/dL (1.6-2.3); Mean Corpuscular HGB Conc 33.4 % (30-36); Mean Corpuscular Hemoglobin 27.6 PG (26-34); Mean Corpuscular Volume 82.5 fL (80-100); Monocytes Absolute Auto 500 /uL (0-900); Monocytes Percent Auto 10.5 % (3-14); Neutrophils Absolute Auto 3700 /uL (1500-7000); Neutrophils Percent Auto 71.3 % (50-75); Platelet Count 218 X10^3/uL (150-400); Potassium 3.5 mmol/L (3.4-5.1); Red Blood Cell Count 4.17 X10^6/uL (4.0-5.2); Red Cell Distribution Width 13.9 % (11.6-14.8); Sodium 132 mmol/L (137-145); Total Protein 7.5 g/dL (6.3-8.2); White Blood Cell Count 5.2 X10^3/uL (4.5-11.0)
[2022-01-23 07:36] LABS: Anisocytosis 1+
[2022-01-23 08:00] VITALS: BP 130/78; PULSE 97; RESP 16; TEMP 36.6; O2SAT 94
[2022-01-23] MEDS: CLOPIDOGREL 75 MG TABLET PO (08:37)
[2022-01-23] MEDS: ISOSORBIDE MONONITRATE ER 30 MG TABLET 60 MG PO (08:37)
[2022-01-23] MEDS: SERTRALINE 50 MG TABLET PO (08:37)
[2022-01-23] MEDS: FUROSEMIDE 20 MG TABLET PO (08:37)
--- NOTE | 2022-01-23 10:11 | PT.IPTN ---
Current Diagnoses Acute on chronic diastolic (congestive) heart failure (01/20/22) Physical Therapy Treatment Note M2 PT-IP Current Condition Start: 01/21/22 08:49 Freq: NEEDED Status: Active Protocol: Document 01/21/22 10:38 AW (Rec: 01/21/22 11:07 AW [id number]) Physical Therapy Current Condition Current Condition Evaluation Date 01/21/22 Treatment Diagnosis CHF exacerbation vs PE, impaired mobility Onset Date 01/18/22 M3 PT-IP Subjective Start: 01/21/22 08:49 Freq: NEEDED Status: Active Protocol: Document 01/23/22 10:11 AB (Rec: 01/23/22 11:58 AB [email or web address]) Subjective Physical Therapy Visit Type Type Treatment Note Visit Start Time 10:11 Visit Stop Time 10:40 Total Visit Minutes 29 Number of APPLICATION DEFENSE MANAGER Visits 0 Physical Therapy Visit Comments Patient Comments agreeable to do PT M4 PT-IP Mobility and Gait Start: 01/21/22 08:49 Freq: NEEDED Status: Active Protocol: Document 01/23/22 10:11 AB (Rec: 01/23/22 11:58 AB [id number]) PT-Transfer Assessment Sit to and From Stand Sit to and from Stand Contact Guard Assistance,1 Person Assistance,Use of Upper Extremities Equipment Transfer Assistive Device Gait Belt,Front Wheeled Walker Orthotic/Prosthetic Devices or Brace: No Transfers Transfer Destination Toilet Transfer Technique ambulated Transfer Ability Level of Assist Contact Guard Assistance,1 Person Assistance,Use of Upper Extremities Comments Mobility Comments pt sitting on EOB and requesting to use the toilet. completed sit to stand CGA and ambulated to the toilet using 4WW CGA. completed toileting needs SBA. completed sit to stand from the toilet CGA and ambulated towards the sink using 4WW CGA. pt ambulated back to chair using 4WW CGA. pt has a high bed at home and uses foot stool with 1 rail/ handle to get up. pt completed up/down foot stool using rail /handle CGA. pt completed up/down foot stool without AD but requires HRIS SPECIALIST x1 mod A. pt repeated x 2 sets. pt agreed to sit up on the chair. positioned on the chair . call light and table placed within reach. Gait Assessment Gait Gait Assistance Required: Contact Guard Assist,1 Person Assist Distance (Feet) 30 Able to Maintain Weight Bearing Status Yes During Gait Assistive Devices Assistive Device Gait Belt,4 Wheeled Walker Orthotic/Prosthetic Devices or Brace: No Gait Deviations General Gait Pattern Decreased Stride Length, Decreased Feet Clearance Factors Limiting Gait Function Factors Limiting Gait Function Decreased Activity Tolerance, Decreased Strength,Poor Balance,Poor Safety Awareness Stair Climbing Assessment Evaluation Level of Assist On Stairs Moderate Assistance Devices Stair Climbing Assistive Devices Left Railing,Right Railing Technique/Endurance Stair Climbing Direction Ascend and Descend Stair Climbing Technique Step to Step Number of Steps Climbed 1 Stair Climbing Set # Repetitions (reps) 2 Comments Stair Climbing Comments pls refer to mobility section for details PT-Balance Assessment Sitting Balance and Reactions Static Sitting Balance Ability Normal Dynamic Sitting Balance Ability Normal Standing Balance and Reactions Static Standing Balance Ability Fair Dynamic Standing Balance Ability Fair Device Used 4WW M5 PT-IP Objective Assessments Start: 01/21/22 08:49 Freq: NEEDED Status: Active Protocol: Document 01/21/22 10:38 AW (Rec: 01/21/22 11:07 AW [id number]) Orientation Orientation/Cognition Level of Alertness Alert Orientation Name,Day of Week,Place, Situation Language Function Ability No Deficits Noted Safety Awareness Understands Safety Issues Gross Range of Motion Lower Extremity ROM Assessment Within Functional Limits Strength Lower Extremity Strength Assessment Within Functional Limits Hip 4/5 Knee 5/5 Ankle 5/5 DF; Sensation Assessment Sensation Gross Sensation WNL Muscle Tone Muscle Tone WNL Yes M6 PT-IP Treatment Start: 01/21/22 08:49 Freq: NEEDED Status: Active Protocol: Document 01/23/22 10:11 AB (Rec: 01/23/22 11:58 AB [email or web address]) Physical Therapy Treatment Education Education Provided Safety M7 PT-IP Assessment and Plan Start: 01/21/22 08:49 Freq: NEEDED Status: Active Protocol: Document 01/23/22 10:11 AB (Rec: 01/23/22 11:58 AB [email or web address]) PT Summary Assessment and Plan Potential Rehabilitation Potential Good Summary Impairments Strength,Balance,Bed Mobility, Transfers,Gait,Activity Tolerance Progress Towards Goals Slow Progress due to Activity Tolerance Assessment Summary pt requiring CGA with mobility using 4WW and with decrease activity tolerance affecting mobility. requires HRIS SPECIALIST mod A for up/down step. pt will have her family at home to assist her. pt will benefit from HHPT Goals Bed Mobility Goal Independent Transfer Goal Independent,Four Wheeled Walker Gait Goal Independent,Four Wheel Walker Gait Distance 100 Other Goals - up/down platform step CGA/ HRIS SPECIALIST Days to Meet Goals 3 Frequency of Treatment Frequency Of Treatment Once a Day Treatment Plan Physical Therapy Treatment Plan Bed Mobility Training,Transfer Training,Gait Training, Therapeutic Exercise,Balance Retraining,Discharge Planning, Hot or Cold Pack,Neuromuscular Re-ed Recommendations To Nursing Amount of Assist Needed 1 Person Assist Discharge Recommendations PT Discharge Recommendations Home with Assistance,Home Health Transportation Needs at Discharge Private Vehicle
--- NOTE | 2022-01-23 10:43 | CM.DPC ---
DCP Cont: Per MD, pt is medically stable for discharge today. No discharge needs needed by DCP. Pt family to transport pt back home. Iris Durham RN/DCP
--- NOTE | 2022-01-23 10:44 | P.DS_ITS ---
History of Present Illness History of Present Illness Date Patient Seen: 01/23/22 Time Patient Seen: 10:44 Chief complaint: Shortness of breath Narrative: Per Dr. Dietz, Ms. Foley is a 76W with PMH CHFrEF, CKD stage 4, DM, HTN, CAD with significant LAD disease not amenable to stenting who present sto the hospital with shortness of breath and chest pain. She states her symptoms started a coupld days ago with worsening shortness of breath. Today she started having chest pain. She has had a nonproductive cough. No fevers/chills. Of note she has had adjustments in her diuretic dose, she saw her spray machine loader on 01/17 who had noted previously she was on higher diuretic doses with elevated creatinine and so had previously lowered her dose of torsemide to 20mg BID and metolazone 5mg twice a week. He notes that she did not want to consider dialysis and he recommended hospice care, which she has not pursued. In the ED workup was done, vitals notable for afebrile, heart rate in 80s, blood pressure 149/76. Pulse ox 97% on room air. Labs notable for WBC 5.8, hgb 12, plts 216. Na 130, BUN 41, creatinine 2.81. Trop negative. D-dimer 2028. BNP 00858. Chest xray showed cardiomegaly with pleural effusions that were small. COVID negative. ECHO was done recently on 01/08 and showed EF 20-25% with enlarged RV with reduced function with moderate MR and TR. She was ordered for lasix and started on heparin and admitted for further treatment. Discharge Providers Provider Date of admission: 01/20/22 12:20 Discharge Date: 01/23/22 Primary care physician: Oliver Ibrahim MD Consults: 01/20/22 13:24 Consult to Physical Therapy Evaluate & Treat Comment: Physician Instructions: Evaluate and Treat Discharge provider: Guero Noble DO Summary Hospital Course Discharge Diagnosis: 1. Acute dyspnea and chest pain secondary to acute on chronic systolic heart failure, PE ruled out. 2. ZULEIMA on CKD stage 4 3. Type 2 DM 4. CAd 5. HTN Hospital Course: Ms. Foley is a 76W with PMH CHFrEF, CKD stage 4, DM, HTN, CAD with significant LAD disease not amenable to stenting who presented to the hospital with shortness of breath and chest pain. This was presumed to be in the setting of acute on chronic heart failure as her diuretics had reportedly been recently decreased. She also had an ZULEIMA based on creatinine trend over the course of her hospitalization. Given presentation, she was started on heparin infusion with plan for V/Q scan given her CKD IV it was advised not to perform CT angiography. V/Q scan was ultimately deemed low risk for PE and after this heparin infusion was stopped. TTE had been performed 01/08 with an EF of 20-25% so this was not repeated. She had improvement in her symptoms with diuresis. She appeared more euvolemic and furosemide was reduced to 20 mg PO BID. Recommend continued follow up with nephrology and cardiology as an outpatient for medication adjustments in her diuretics. Patient was not interested in hospice services at this time after initial discussion on admission as it had been mentioned by her neprhologist as an outpatient. Patient is not on guanako-inhibition for her heart failure at this time given CKD. Time Spent with Patient Time spent: Greater than 30 minutes Exam Vital Signs (past 8 hours): - 01/23/22 04:00 01/23/22 04:00 01/23/22 08:00 Temperature 97.1 F L 97.8 F Pulse Rate 108 H 97 H Respiratory Rate 17 16 Blood Pressure 141/88 H 130/78 Pulse Oximetry 95 95 94 Oxygen Delivery Method Room Air Oxygen Flow Rate 0 0 Oxygen Delivery Method Room Air Oxygen Flow Rate 0 Narrative Exam Narrative: GEN: no acute distress HEENT: moist mucous membranes, PERRL NECK: trachea midline, no JVD PULM: crackles bilaterally CV: regular rate and rhythm, no murmurs ABD: soft, nontender, nondistended, no organomegaly EXT: warm and well perfused with no edema NEURO: awake, alert, no focal deficits Objective Labs Result Diagrams: 01/23/22 05:55 01/23/22 05:55 Labs: Laboratory Results - last 24 hr 01/23/22 01/23/22 01/23/22 05:55 05:55 05:55 WBC 5.2 RBC 4.17 Hgb 11.5 L Hct 34.4 L MCV 82.5 MCH 27.6 MCHC 33.4 RDW 13.9 Plt Count 218 Neut % (Auto) 71.3 Lymph % (Auto) 15.6 L [place] % (Auto) 10.5 Eos % (Auto) 1.9 L Baso % (Auto) 0.7 Neut # (Auto) 3700 Lymph # (Auto) 800 L [place] # (Auto) 500 Eos # (Auto) 100 Baso # (Auto) 0 RBC Morphology Not Reportable Anisocytosis 1+ H APTT 71 H Sodium 132 L Potassium 3.5 Chloride 88 L Carbon Dioxide 34 H BUN 38 H Creatinine 2.24 H Estimated GFR 22 L BUN/Creatinine Ratio 17.0 Glucose 113 H Calcium 8.7 Magnesium 1.4 L Total Bilirubin 0.5 AST 26 ALT 14 Alkaline Phosphatase 139 H Total Protein 7.5 Albumin 4.1 Globulin 3.4 Albumin/Globulin Ratio 1.2 PFSH Medical History Cognitive impairment COVID-19 Major depression in partial remission Myocardial infarction Osteoarthritis Plaque psoriasis Type 2 diabetes mellitus Surgical History History of appendectomy History of bilateral hip replacements History of cholecystectomy History of left knee surgery History of surgery on right wrist Family History Mother Congestive heart failure Brother Congestive heart failure Social History household members: family and children Smoking Status: Never smoker alcohol intake: never Discharge Plan Discharge Plan Patient Disposition: Home Provider Discharge Comment: You were admitted to the hospital with shortness of breath. You remained in the hospital for a possible PE and heart failure. PE testing was negative and you had fluid taken off. Your kidney function improved over the course of admission. Recommend you continue current lasix dosing (rather than your torsemide) and follow up with your kidney specialist for furt her adjustments. Discharge orders & Medications Prescriptions: New furosemide 20 mg tablet 20 mg PO BID 30 Days Qty: 60 0RF Continued isosorbide mononitrate 60 mg tablet extended release 24 hr 60 mg PO QAM cholecalciferol (vitamin D3) 25 mcg (1,000 unit) tablet 25 mcg PO BID Qty: 180 3RF colestipol 1 gram tablet 1 g PO BID Qty: 180 2RF famotidine 40 mg tablet 40 mg PO QAM Qty: 90 2RF sertraline 50 mg tablet 50 mg PO QAM Qty: 90 1RF docusate sodium 100 mg capsule 100 mg PO QAM Qty: 90 2RF pantoprazole 40 mg tablet,delayed release (DR/EC) 40 mg PO QAM Qty: 90 2RF carvedilol 25 mg tablet 25 mg PO BID Qty: 180 1RF carvedilol [Coreg] 12.5 mg tablet 25 mg PO BID Qty: 90 1RF atorvastatin 40 mg tablet 40 mg PO BEDTIME Qty: 90 1RF clopidogrel 75 mg tablet 75 mg PO QAM Qty: 90 1RF (DME) one touch verio test strips See Rx Instructions .Route .MEDSUPPLY Qty: 100 0RF Rx Instructions: As directed- Use to check blood sugar once a day ascorbic acid (vitamin C) 500 mg Tablet,Chewable 500 mg PO QAM [id number] Tablet 1 tab PO QAM Tradjenta 5 mg Tablet 5 mg PO DAILY cephalexin 250 mg Capsule 250 mg PO BID Qty: 10 0RF lorazepam [Ativan] 0.5 mg tablet 0.5 mg PO TID PRN (Reason: leg spasm) Qty: 10 0RF Discontinued torsemide 40 mg tablet 40 mg PO BID Follow up/Referrals: Oliver Ibrahim MD [Primary Care Provider] - Diet/Activity/Treatments Diet: Diet as Tolerated Activity: As tolerated Visit Report/Discharge Packet Instructions: DI for Heart Failure Discharge Data Primary Care Provider: Oliver Ibrahim Quality VTE Deep Vein Thrombosis/Pulmonary Embolism Present on Admission: No
--- NOTE | 2022-01-23 12:13 | PC.NURSE ---
Discharge Note Patient A&O, VSS, RA, no complaints of pain/discomfort. Discharge packet reviewed with patient, all questions/concerns addressed. PIV discontinued. Patient able to dress self and pack all belongings. Patient reminded to pickle water pump operator prescription at preferred pharmacy. Patient taken down via wheelchair to POV.
== END 2022-01-23 12:00 | disposition home or self-care (01) | DRG 291 ==
LOC: ED 10:36 → AC 12:20
PROVIDERS: Internal Medicine; Nurse Practitioner Family; Admitting Provider Internal Medicine; Emergency Provider Emergency Medicine; PCP Student in an Organized Health Care Education/Training Program; Referring Provider Emergency Medicine; Visit Provider Internal Medicine
DX: I13.0 Hypertensive heart and chronic kidney disease with heart failure and stage 1 through stage 4 chronic kidney disease, or unspecified chronic kidney disease (principal); I50.23 Acute on chronic systolic (congestive) heart failure; N17.9 Acute kidney failure, unspecified; N18.4 Chronic kidney disease, stage 4 (severe); E11.22 Type 2 diabetes mellitus with diabetic chronic kidney disease; I25.10 Atherosclerotic heart disease of native coronary artery without angina pectoris; F32.A Depression, unspecified; Z20.822 Contact with and (suspected) exposure to COVID-19; Z66 Do not resuscitate; Z79.84 Long term (current) use of oral hypoglycemic drugs
CPT/HCPCS: 36415; 36592; 71046; 78582; 80048; 80053; 82550; 82962; 83605; 83735; 83880; 84100; 84484; 85025; 85379; 85730; 87635; 93005; 96365; 96375; 96376; 97116; 97162; 97530; 99284; 99291; A9539; A9540; C9803; J1644; J1815; J1940

== ENCOUNTER → 2022-08-29 09:42 | Outpatient (CLI) | payer MEDICARE, OTHER, SELFPAY ==
[2022-01-20 13:24] VITALS: BMI 29.7
[2022-08-29 11:10] LABS: Add Manual Diff / Slide Review NO; Basophils Absolute Auto 0 /uL (0-100); Basophils Percent Auto 0.6 % (0-2); Eosinophils Absolute Auto 200 /uL (0-450); Eosinophils Percent Auto 2.3 % (2-4); Hematocrit 30.5 % (36-46); Hemoglobin 10.8 g/dL (12.0-16.0); Lymphocytes Absolute Auto 700 /uL (1100-4500); Lymphocytes Percent Auto 10.8 % (25-40); Mean Corpuscular HGB Conc 35.4 % (30-36); Mean Corpuscular Hemoglobin 30.1 PG (26-34); Monocytes Absolute Auto 700 /uL (0-900); Monocytes Percent Auto 10.3 % (3-14); Neutrophils Absolute Auto 4900 /uL (1500-7000); Platelet Count 252 X10^3/uL (150-400); Red Blood Cell Count 3.58 X10^6/uL (4.0-5.2); Red Cell Distribution Width 13.8 % (11.6-14.8); White Blood Cell Count 6.5 X10^3/uL (4.5-11.0)
[2022-08-29 11:45] LABS: Alanine Aminotransferase 18 IU/L (<35); Albumin Globulin Ratio 1.4 (1.0-2.8); Alkaline Phosphatase 142 U/L (38-126); Aspartate Aminotransferase 21 IU/L (14-36); BUN Creatinine Ratio 17.8 (6-22); Bilirubin Total 0.4 mg/dL (0.2-1.3); Blood Urea Nitrogen 43 mg/dL (7-17); Calcium 9.1 mg/dL (8.4-10.2); Carbon Dioxide 29 mmol/L (22-32); Chloride 92 mmol/L (98-107); Cholesterol 162 mg/dL (140-199); Estimated Glomerular Filt Rate 20 mL/min (>60); Globulin 2.9 g/dL (1.7-4.1); Glucose 179 mg/dL (80-110); HDL Cholesterol 68 mg/dL (40-60); HEMOLYSIS < 15 (0-50); LDL Cholesterol Calculated 47 mg/dL (<100); Potassium 4.1 mmol/L (3.4-5.1); Sodium 131 mmol/L (137-145); Total Protein 6.9 g/dL (6.3-8.2); Triglycerides 234 mg/dL (35-150)
== END ==
PROVIDERS: PCP Family Medicine; Referring Provider Family Medicine; Visit Provider Family Medicine
DX: D64.9 Anemia, unspecified (principal); E11.9 Type 2 diabetes mellitus without complications; E11.69 Type 2 diabetes mellitus with other specified complication; E78.5 Hyperlipidemia, unspecified; I10 Essential (primary) hypertension; N18.4 Chronic kidney disease, stage 4 (severe)
CPT/HCPCS: 36415; 80053; 80061; 83036; 85025

== ENCOUNTER → 2022-09-26 12:20 | Outpatient (CLI) | payer MEDICARE, OTHER, SELFPAY ==
[2022-01-20 13:24] VITALS: BMI 29.7
--- NOTE | 2022-09-26 13:55 | DIAB.INIT ---
Initial Diabetes Education Assessment Name: Frances Foley Date: 09/26/22 Time: 1250-150p Dx: Type II Diabetes with CKD Provider: Sandrine Mariya presents today for initial Dm visit with son-in-law Keon. Reports PMH of DM for 20 years. H/o insulin injections. Per Dr. Ibrahim notes, she lacked the ability to properly use insulin pens. With CKD, she was prescribed a DPP4i, which she reports was unaffordable for her. No current Dm meds, HgA1c of 7%, though reports day care home mother feels this lab value is falsely low. Diet recall indicates moderate carb intake, some grazing mid day ie crackers, fruit, diet beverages. Endorses reduced carb intake in general, including less cookies. Minimizes meat intake d/t CKD. Self-Monitoring Blood Glucose: Reports difficulty with recent meter error message. Did not bring meter today. States she cannot afford strips out of pocket. May need a new meter based on difficulty of use. Endorses h/o successful BG testing with other meters. Reports h/o low BG of 54 mg/dl even without DM meds. She would like to try CGM system though unlikely insurance will cover a personal CGM unless she is having hypglycemia and/or on insulin at least one injection per day. We discussed this in detail today. Diabetes Medications: none Pertinent Labs: 08/29/22 HgA1c 7% K 4.1 Cr 2.42 H GFR 20 L T H Cholesterol: 162 LDL 47 HDL 68 Past Medical History: (Last Reviewed 01/20/22 @ 20:42 by Navid Murillo MD) Cognitive impairment COVID-19 Major depression in partial remission Myocardial infarction 2019. Was in [facility]. Cardiac cath with diffuse LAD disease. No stents were placed Osteoarthritis Plaque psoriasis Type 2 diabetes mellitus Intervention: This participant was very receptive. Provided appropriate educational handouts. Discussed the following topics: Completed intake assessment. Reviewed meter use, OTC meters, potential error messages, accuracy compared to CGM Reviewed CGM use, indications, accuracy, and usual coverage. Directed Mariya in self-placement of device. Reviewed CGM reports access and printing prior to PCP visit Created SMART goals for patient self-care and success. Goals: Wear CGM for 10 days Print reports for PCP after 10 days Purchase new One Touch meter Follow-up: PCP follow-up recommended for CGM report review. Provided Dexcom support contact info and encouraged her to call my office in the next two weeks for questions. Rosina Aguayo RDN, [facility] Certified Diabetes Care and Manager Managing P: [phone] Thank you for this referral
== END ==
PROVIDERS: Absent Provider Family Medicine; Family Provider Family Medicine; PCP Family Medicine; Referring Provider Family Medicine; Visit Provider Family Medicine
DX: N18.4 Chronic kidney disease, stage 4 (severe) (principal); E11.9 Type 2 diabetes mellitus without complications; E11.69 Type 2 diabetes mellitus with other specified complication; I10 Essential (primary) hypertension; E78.5 Hyperlipidemia, unspecified; E11.22 Type 2 diabetes mellitus with diabetic chronic kidney disease; Z71.3 Dietary counseling and surveillance
CPT/HCPCS: G0108

== ENCOUNTER 2023-04-16 14:16 | Emergency (ER) | payer MEDICARE, OTHER, SELFPAY ==
[2022-01-20 13:24] VITALS: BMI 29.7
[2023-04-16] VITALS (13 sets, daily range): BP systolic 144–172; BP diastolic 77–102; PULSE 87–90; RESP 15–31; TEMP 36.9; O2SAT 96–98; BMI 27.4
--- NOTE | 2023-04-16 15:06 | ED_ITS ---
HPI - Abdominal Pain General Chief Complaint: Abdominal Pain Stated Complaint: SOB Time Seen by Provider: 04/16/23 15:02 Source: patient and family Mode of arrival: Wheelchair History of Present Illness HPI narrative: Patient is a 77-year-old female history of CHF, CKD, NSTEMI, type 2 diabetes, presenting today shortness of breath and abdominal pain. She reports that she has not felt good for the last 2 and half to 3 days. Just very weak and fatigued. She has noted that she is more short of breath with exertion especially today more than previously. She lives with daughter daughter states that she chronically sleeps with a wedge so no worsening orthopnea. Today she does notice some right lower extremity swelling more than the left. She is noticed significant shortness of breath with the exertion. No fever or chills. Patient also complains of some upper abdominal pain but difficult to tell how long that has actually been there. She has no lower abdominal pain. Currently afebrile. Related Data Home Medications Medication Instructions Recorded Confirmed ascorbic acid (vitamin C) 500 mg 500 mg PO QAM 07/25/21 12/04/22 chewable tablet [id number] tablet 1 tab PO QAM 07/25/21 12/04/22 metolazone 5 mg tablet 5 mg PO .TIW 02/21/22 12/04/22 carvedilol 25 mg tablet 25 mg PO BID 02/26/22 12/04/22 glycine amino acid 2 g PO 03/06/23 03/06/23 magnesium gycinate 200 mg PO 03/06/23 03/06/23 Previous Rx's Medication Instructions Recorded cholecalciferol (vitamin D3) 25 25 mcg PO BID #180 tabs 09/22/21 mcg (1,000 unit) tablet clopidogrel 75 mg tablet 75 mg PO QAM #90 tabs 12/04/21 blood sugar diagnostic (Blood #100 ea 02/21/22 Glucose Test strips) atorvastatin 40 mg tablet 40 mg PO BEDTIME #90 tabs 05/07/22 blood-glucose meter,continuous #1 ea 12/04/22 (Dexcom G7 [employer]) pantoprazole 40 mg tablet,delayed 40 mg PO DAILY #90 tabs 01/18/23 release sertraline 50 mg tablet 50 mg PO DAILY #90 tabs 03/06/23 famotidine 40 mg tablet 40 mg PO QAM #90 tabs 03/13/23 gabapentin 100 mg capsule 200 mg (2 x 100 mg) PO BEDTIME 03/18/23 #180 caps Allergies Allergy/AdvReac Type Severity Reaction Status Date / Time dimenhydrinate AdvReac Intermediate restless Verified 12/04/22 09:47 [From Dramamine] legs diphenhydramine AdvReac Intermediate restless Verified 12/04/22 09:47 [From Benadryl] legs hydrocodone AdvReac Intermediate Nausea Verified 12/04/22 09:47 Patient History Medical History (Updated 04/16/23 @ 17:36 by Corin aPrks DO) Fall COVID-19 Osteoarthritis Major depression in partial remission Type 2 diabetes mellitus Plaque psoriasis Cognitive impairment Myocardial infarction Surgical History History of surgery on right wrist History of bilateral hip replacements History of left knee surgery History of cholecystectomy History of appendectomy Family History Mother Congestive heart failure Brother Congestive heart failure Social History household members: family and children Smoking Status: Never smoker alcohol intake: never substance use type: does not use Smoking Status: Never smoker Substance Use Type: does not use Exam Initial Vital Signs Initial Vital Signs: Vital Signs Temperature 98.5 F 04/16/23 14:26 Pulse Rate 89 04/16/23 14:26 Respiratory Rate 20 04/16/23 14:26 Blood Pressure 153/77 H 04/16/23 14:26 Pulse Oximetry 97 04/16/23 14:26 Oxygen Delivery Method Room Air 04/16/23 14:26 GENERAL: Alert 77-year-old female HEENT: Head atraumatic,EOMI, pupils reactive, face symmetric, moist mucous membranes CARDIOVASCULAR: Regular rate and rhythm without murmurs, rubs or gallops. RESPIRATORY: Shallow breaths mild tachypnea conversational dyspnea no rales or rhonchi ABDOMEN: Soft, epigastric and abdominal pain EXTREMITIES: Normal range of motion, no clubbing or edema. Neurovascularly intact NEUROLOGICAL: Alert and oriented x4.Normal gait and speech SKIN: Warm, dry, no laceration, no petechiae, no rashes or lesions. Course Orders Ordered: ED Orders 04/16/23 14:33 Covid-19 + FLU A/B + RSV - PCR Stat 04/16/23 14:34 EKG-12 Lead Stat 04/16/23 15:11 BNP [NT-proBNP (BNP-Adult 18+)] Stat Complete Blood Count AUTO DIFF Stat Comprehensive Metabolic Panel Stat Lipase Stat Troponin & CK Cardiac Panel Stat 04/16/23 16:08 Urine Culture Stat Urine Microscopic Stat 04/16/23 16:46 Chest [XR chest 1V] Stat Discontinued Medications Furosemide (Furosemide 40 Mg/4 Ml Vial) 40 mg IV NOW ONE Stop: 04/16/23 17:01 Last Admin: 04/16/23 17:16 Dose: 40 mg Documented By: HAMIDA Ondansetron HCl (Ondansetron 4 Mg Odt) 4 mg PO NOW PRN PRN Reason: Nausea And Vomiting Ondansetron HCl (Ondansetron 4 Mg/2 Ml Inj) 4 mg IV NOW PRN PRN Reason: Nausea And Vomiting Vital Signs Vital signs: Vital Signs - 8 hr 04/16/23 14:26 04/16/23 14:44 04/16/23 15:00 Temperature 98.5 F Pulse Rate 89 87 89 Respiratory Rate 20 24 23 Blood Pressure 153/77 H Pulse Oximetry 97 98 97 Oxygen Delivery Method Room Air 04/16/23 15:23 04/16/23 15:23 04/16/23 15:25 Temperature Pulse Rate 87 87 Respiratory Rate 21 17 Blood Pressure 172/102 H Pulse Oximetry 96 97 Oxygen Delivery Method Room Air 04/16/23 15:25 04/16/23 15:30 04/16/23 15:30 Temperature Pulse Rate 87 Respiratory Rate 15 Blood Pressure 151/90 H 164/84 H Pulse Oximetry 97 Oxygen Delivery Method 04/16/23 16:00 04/16/23 16:05 04/16/23 16:06 Temperature Pulse Rate 89 88 Respiratory Rate 17 Blood Pressure 165/79 H Pulse Oximetry 96 Oxygen Delivery Method 04/16/23 16:06 04/16/23 16:30 04/16/23 16:30 Temperature Pulse Rate 89 87 Respiratory Rate 24 22 Blood Pressure 152/87 H Pulse Oximetry 96 97 Oxygen Delivery Method 04/16/23 17:00 04/16/23 17:00 04/16/23 17:30 Temperature Pulse Rate 89 88 Respiratory Rate 20 27 H Blood Pressure 160/89 H Pulse Oximetry 96 Oxygen Delivery Method 04/16/23 17:31 04/16/23 17:31 Temperature Pulse Rate 90 Respiratory Rate 31 H Blood Pressure 144/89 H Pulse Oximetry Oxygen Delivery Method MDM - Abdominal Pain Lab Data 04/16/23 15:11 04/16/23 15:11 Labs: Lab Results 04/16/23 04/16/23 04/16/23 Range/Units 14:33 15:11 16:08 WBC 6.3 (4.5-11.0) X10^3/uL RBC 4.85 (4.0-5.2) X10^6/uL Hgb 13.6 (12.0-16.0) g/dL Hct 41.7 (36-46) % MCV 86.0 (80-100) fL MCH 28.2 (26-34) PG MCHC 32.7 (30-36) % RDW 14.6 (11.6-14.8) % Plt Count 218 (150-400) X10^3/uL Neut % (Auto) 77.6 H (50-75) % Lymph % (Auto) 11.9 L (25-40) % [place] % (Auto) 8.7 (3-14) % Eos % (Auto) 1.3 L (2-4) % Baso % (Auto) 0.5 (0-2) % Neut # (Auto) 4900 (9222-6630) /uL Lymph # (Auto) 700 L (0703-1652) /uL [place] # (Auto) 500 (0-900) /uL Eos # (Auto) 100 (0-450) /uL Baso # (Auto) 0 (0-100) /uL Sodium 134 L (137-145) mmol/L Potassium 3.4 (3.4-5.1) mmol/L Chloride 96 L (98-107) mmol/L Carbon Dioxide 27 (22-32) mmol/L BUN 29 H (7-17) mg/dL Creatinine 2.17 H (0.52-1.04) mg/dL Estimated GFR 23 L (>60) mL/min BUN/Creatinine Ratio 13.4 (6-22) Glucose 140 H (80-110) mg/dL Calcium 9.9 (8.4-10.2) mg/dL Total Bilirubin 0.8 (0.2-1.3) mg/dL AST TNP ALT 17 (<35) IU/L Alkaline Phosphatase 115 (38-126) U/L Total Creatine Kinase 53 (30-135) U/L Troponin I < 0.012 (0.01-0.034) ng/mL NT-Pro-B Natriuret Pep 65971 H (<450) pg/mL Total Protein 7.6 (6.3-8.2) g/dL Albumin 4.2 (3.5-5.0) g/dL Globulin 3.4 (1.7-4.1) g/dL Albumin/Globulin Ratio 1.2 (1.0-2.8) Lipase 76 (23-300) U/L Urine RBC 1-5/hpf (0-5/HPF) Urine WBC 10-30/hpf H (0-5/HPF) Ur Squamous Epith Cells 1-5 /hpf (0-5/HPF) Ur Renal Epithelial Cell 1-5/hpf H (0-1/HPF) Urine Bacteria Many (>30) H (None) Ur Culture Indicated? Specimen cultured Micro UA Comment SARS-CoV-2 (PCR) Negative (Negative) Influenza A (RT-PCR) Flu a negative (NEGATIVE) Influenza B (RT-PCR) Flu b negative (NEGATIVE) RSV (PCR) Negative (Negative) Point of care testing: Urine Dip Bedside Urine Glucose Negative Bedside Urine Bilirubin - Negative Bedside Urine Ketone - Negative Urine Specific [place] 1.015 Bedside Urine Occult Blood + Bedside Urine pH 6.5 Bedside Urine Protein +++ 300 Bedside Urine Urobilinogen - Negative Bedside Urine Nitrite - Negative Bedside Urine Leukocytes + 70 Esterase Imaging Data Chest x-ray: Radiologist's Impression: PROCEDURE: XR CHEST 1V INDICATIONS: cough and sob TECHNIQUE: One view of the chest was acquired. COMPARISON: [facility], , XR CHEST 2V, 01/20/2022, 10:53. FINDINGS: Surgical changes and devices: None. Lungs and pleura: Lungs are clear. No pleural effusions or pneumothorax. No focal consolidation. Mediastinum: Mediastinal contours appear normal. Heart size is enlarged. Bones and chest wall: No suspicious bony lesions. Overlying soft tissues appear unremarkable. IMPRESSION: Cardiomegaly without evidence for pulmonary edema or CHF. No focal airspace disease identified. Dictated by: Jeancarlos Strange M.D. on 04/16/2023 at 18:06 Approved by: Jeancarlos Strange M.D. on 04/16/2023 at 18:06 ECG Data Interpretation: Normal sinus rhythm rate 88 [place] interval 230 QRS [address] changes mild low voltage similar to previous EKGs MDM Narrative Medical decision making narrative: Patient is 77-year-old female history of congestive heart failure chronic kidney disease not a dialysis candidate presenting today with bright if symptoms. She has been feeling ill for the last couple of days. She does have some mild conversational dyspnea but not hypoxic. She has swelling of her right leg pull maybe +1 pitting edema. Blood work reviewed no leukocytosis or anemia, sodium 134, chloride 96, potassium 3.4, CO2 27 BUN 29 creatinine 2.17 previously 2.42- troponin BNP 88989 which is lower than previous at 34,700 viral panel is also negative Chest x-ray reviewed no acute cardiopulmonary process but there is cardiomegaly At this time I do think she is getting of some congestive heart failure. She is minimal conversational dyspnea some slight pedal edema. X-rays negative BNP is actually lower than what it has been. But I do think reasonable to increase diuretic for a day or 2 to see if she improves. She has had chronic ongoing abdominal pain not really new today. Abdomen is soft and benign. No need for imaging at this time. She is ambulating to the bedside commode with minimal assistance. Discussed results with patient daughter and agree go home. Discharge Plan Departure Patient Disposition: Home Clinical Impression: Congestive heart failure Instructions: DI for Heart Failure Activity Restrictions/Additional Instructions: *You have been diagnosed with mild congestive heart failure *What to do: At this time viral panel is negative no need for antibiotics blood work reassuring *Continue to take medications as directed Torsemide 20 mg twice a day for 2 days and resume 10 mg twice daily as previously prescribed *Follow up with your primary care provider in 2-3 days or call [phone] *Return to ER if you should have increasing shortness of breath confusion weakness or any new, worsening or concerning symptoms Prescriptions: No Action cholecalciferol (vitamin D3) 25 mcg (1,000 unit) tablet 25 mcg PO BID Qty: 180 3RF clopidogrel 75 mg tablet 75 mg PO QAM Qty: 90 1RF atorvastatin 40 mg tablet 40 mg PO BEDTIME Qty: 90 1RF pantoprazole 40 mg tablet,delayed release (DR/EC) 40 mg PO DAILY Qty: 90 0RF famotidine 40 mg tablet 40 mg PO QAM Qty: 90 2RF gabapentin 100 mg capsule 200 mg PO BEDTIME Qty: 180 0RF (DME) Dexcom G7 [employer] Misc See Rx Instructions .ROUTE .MEDSUPPLY Qty: 1 1RF Rx Instructions: USE TO MONITOR BLOOD SUGAR LEVELS CONTINUOUSLY. REPLACE EVERY 365 DAYS OR IF BROKEN sertraline 50 mg tablet 50 mg PO DAILY Qty: 90 0RF glycine amino acid 2 g PO magnesium gycinate 200 mg PO (DME) Blood Glucose Test Strip See Rx Instructions .ROUTE .MEDSUPPLY Qty: 100 2RF Rx Instructions: Use to test blood glucose ONCE daily. metolazone 5 mg tablet 5 mg PO .TIW carvedilol 25 mg tablet 25 mg PO BID Rx Instructions: must administer with a meal/food ascorbic acid (vitamin C) 500 mg Tablet,Chewable 500 mg PO QAM [id number] Tablet 1 tab PO QAM Referrals: Magalys Deluca DO [Primary Care Provider] - Stand Alone Forms: Patient Portal/API
[2023-04-16 15:21] LABS: Add Manual Diff / Slide Review NO; Basophils Absolute Auto 0 /uL (0-100); Basophils Percent Auto 0.5 % (0-2); Eosinophils Absolute Auto 100 /uL (0-450); Eosinophils Percent Auto 1.3 % (2-4); Hematocrit 41.7 % (36-46); Hemoglobin 13.6 g/dL (12.0-16.0); Lymphocytes Absolute Auto 700 /uL (1100-4500); Lymphocytes Percent Auto 11.9 % (25-40); Mean Corpuscular HGB Conc 32.7 % (30-36); Mean Corpuscular Hemoglobin 28.2 PG (26-34); Monocytes Absolute Auto 500 /uL (0-900); Monocytes Percent Auto 8.7 % (3-14); Neutrophils Absolute Auto 4900 /uL (1500-7000); Neutrophils Percent Auto 77.6 % (50-75); Platelet Count 218 X10^3/uL (150-400); Red Blood Cell Count 4.85 X10^6/uL (4.0-5.2); Red Cell Distribution Width 14.6 % (11.6-14.8); White Blood Cell Count 6.3 X10^3/uL (4.5-11.0)
[2023-04-16 15:23] LABS: Influenza A - CEPHEID Flu A NEGATIVE (NEGATIVE); Influenza B - CEPHEID Flu B NEGATIVE (NEGATIVE); Respiratory Syncytial Virus Negative (Negative)
[2023-04-16 15:37] LABS: Creatine Kinase 53 U/L (30-135)
[2023-04-16 15:40] LABS: Alanine Aminotransferase 17 IU/L (<35); Albumin 4.2 g/dL (3.5-5.0); Albumin Globulin Ratio 1.2 (1.0-2.8); Alkaline Phosphatase 115 U/L (38-126); BUN Creatinine Ratio 13.4 (6-22); Bilirubin Total 0.8 mg/dL (0.2-1.3); Blood Urea Nitrogen 29 mg/dL (7-17); Calcium 9.9 mg/dL (8.4-10.2); Carbon Dioxide 27 mmol/L (22-32); Chloride 96 mmol/L (98-107); Estimated Glomerular Filt Rate 23 mL/min (>60); Globulin 3.4 g/dL (1.7-4.1); Glucose 140 mg/dL (80-110); HEMOLYSIS < 15 (0-50); Lipase 76 U/L (23-300); Potassium 3.4 mmol/L (3.4-5.1); Sodium 134 mmol/L (137-145); Total Protein 7.6 g/dL (6.3-8.2)
[2023-04-16 15:42] LABS: COVID-19 CEPHEID 4-PLEX PCR Negative (Negative)
[2023-04-16 15:50] LABS: NT-proBNP (BNP-Adult 18+) 29300 pg/mL (<450); Troponin I < 0.012 ng/mL (0.01-0.034)
[2023-04-16 16:38] LABS: Bacteria Urine Many (>30); Culture Indicated Urine Specimen Cultured; RBC Urine 1-5/HPF (0-5/HPF); Renal Epithelial Cells Urine 1-5/HPF (0-1/HPF); Squamous Epithelial Cell Urine 1-5 /HPF (0-5/HPF); WBC Urine 10-30/HPF (0-5/HPF)
--- NOTE | 2023-04-16 16:46 | DI.RAD.S_ITS ---
PROCEDURE: XR CHEST 1V INDICATIONS: cough and sob TECHNIQUE: One view of the chest was acquired. COMPARISON: [facility], CR, XR CHEST 2V, 01/20/2022, 10:53. FINDINGS: Surgical changes and devices: None. Lungs and pleura: Lungs are clear. No pleural effusions or pneumothorax. No focal consolidation. Mediastinum: Mediastinal contours appear normal. Heart size is enlarged. Bones and chest wall: No suspicious bony lesions. Overlying soft tissues appear unremarkable. IMPRESSION: Cardiomegaly without evidence for pulmonary edema or CHF. No focal airspace disease identified. Dictated by: Jeancarlos Strange M.D. on 04/16/2023 at 18:06 Approved by: Jeancarlos Strange M.D. on 04/16/2023 at 18:06
[2023-04-16] MEDS: FUROSEMIDE 40 MG/4 ML VIAL IV (17:16)
[2023-04-19 17:14] LABS: Aspartate Aminotransferase 33 IU/L (14-36)
== END 2023-04-16 17:51 | disposition home or self-care (01) ==
PROVIDERS: Emergency Provider Emergency Medicine; Family Provider Family Medicine; PCP Family Medicine
DX: I50.9 Heart failure, unspecified (principal); R03.0 Elevated blood-pressure reading, without diagnosis of hypertension
CPT/HCPCS: 0241U; 36415; 71045; 80053; 81003; 81015; 82550; 83690; 83880; 84484; 85025; 87086; 93005; 96374; 99284; J1940

== ENCOUNTER → 2023-05-03 09:58 | Outpatient (CLI) | payer MEDICARE, OTHER, SELFPAY ==
[2022-01-20 13:24] VITALS: BMI 29.7
[2023-05-03 10:44] LABS: Hemoglobin A1C% w Est Avg Glu 8.4 % (4.0-6.0)
[2023-05-03 11:02] LABS: BUN Creatinine Ratio 17.5 (6-22); Blood Urea Nitrogen 37 mg/dL (7-17); Carbon Dioxide 31 mmol/L (22-32); Chloride 94 mmol/L (98-107); Estimated Glomerular Filt Rate 24 mL/min (>60); Glucose 184 mg/dL (80-110); HEMOLYSIS < 15 (0-50); Potassium 3.4 mmol/L (3.4-5.1); Sodium 133 mmol/L (137-145)
== END ==
PROVIDERS: Family Provider Family Medicine; PCP Family Medicine; Referring Provider Family Medicine; Visit Provider Family Medicine
DX: E11.9 Type 2 diabetes mellitus without complications (principal); N18.4 Chronic kidney disease, stage 4 (severe); I25.10 Atherosclerotic heart disease of native coronary artery without angina pectoris; I50.20 Unspecified systolic (congestive) heart failure; I10 Essential (primary) hypertension
CPT/HCPCS: 36415; 80048; 83036

== ENCOUNTER 2023-09-23 18:10 | Emergency (ER) | payer MEDICARE, OTHER, SELFPAY ==
[2022-01-20 13:24] VITALS: BMI 29.7
--- NOTE | 2023-09-23 18:17 | DI.RAD.S_ITS ---
PROCEDURE: XR CHEST 1V INDICATIONS: Shortness of breath TECHNIQUE: One view of the chest was acquired. COMPARISON: [facility], CR, XR CHEST 1V, 04/16/2023, 16:54. FINDINGS: Surgical changes and devices: None. Lungs and pleura: Increased interstitial markings bilaterally. No pleural effusions or pneumothorax. Mediastinum: Mediastinal contours appear normal. Heart size is mild cardiomegaly. Bones and chest wall: No suspicious bony lesions. Overlying soft tissues appear unremarkable. IMPRESSION: Mild cardiomegaly and increased interstitial markings bilaterally, suggesting mild CHF. Dictated by: Trista Earl M.D. on 09/23/2023 at 17:48 Approved by: Trista Earl M.D. on 09/23/2023 at 17:49
[2023-09-23 18:23] VITALS: BP 165/79; PULSE 84; RESP 18; TEMP 36.4; O2SAT 97; BMI 25.0
[2023-09-23 18:43] LABS: Add Manual Diff / Slide Review NO; Basophils Absolute Auto 100 /uL (0-100); Basophils Percent Auto 1.1 % (0-2); Eosinophils Absolute Auto 100 /uL (0-450); Eosinophils Percent Auto 1.6 % (2-4); Hematocrit 41.6 % (36-46); Hemoglobin 13.4 g/dL (12.0-16.0); Lymphocytes Absolute Auto 600 /uL (1100-4500); Lymphocytes Percent Auto 9.6 % (25-40); Mean Corpuscular HGB Conc 32.2 % (30-36); Mean Corpuscular Hemoglobin 27.8 PG (26-34); Mean Corpuscular Volume 86.3 fL (80-100); Monocytes Absolute Auto 600 /uL (0-900); Monocytes Percent Auto 10.4 % (3-14); Neutrophils Absolute Auto 4700 /uL (1500-7000); Neutrophils Percent Auto 77.3 % (50-75); Platelet Count 255 X10^3/uL (150-400); Red Blood Cell Count 4.83 X10^6/uL (4.0-5.2); Red Cell Distribution Width 14.4 % (11.6-14.8); White Blood Cell Count 6.1 X10^3/uL (4.5-11.0)
[2023-09-23 18:59] LABS: Lactate (Lactic Acid) 1.6 mmol/L (0.7-2.1)
[2023-09-23 19:00] LABS: Alanine Aminotransferase 18 IU/L (<35); Albumin Globulin Ratio 1.5 (1.0-2.8); Alkaline Phosphatase 121 U/L (38-126); Aspartate Aminotransferase 33 IU/L (14-36); BUN Creatinine Ratio 16.4 (6-22); Bilirubin Total 0.7 mg/dL (0.2-1.3); Blood Urea Nitrogen 34 mg/dL (7-17); Calcium 8.9 mg/dL (8.4-10.2); Carbon Dioxide 22 mmol/L (22-32); Chloride 104 mmol/L (98-107); Estimated Glomerular Filt Rate 24 mL/min (>60); Globulin 2.7 g/dL (1.7-4.1); Glucose 137 mg/dL (80-110); HEMOLYSIS < 15 (0-50); Potassium 3.9 mmol/L (3.4-5.1); Sodium 137 mmol/L (137-145); Total Protein 6.7 g/dL (6.3-8.2)
[2023-09-23 19:06] LABS: INR 1.5 (0.9-1.3); Prothrombin Time 17.7 SECONDS (9.4-12.5)
--- NOTE | 2023-09-23 19:07 | ED.GENADULT ---
HPI - General Adult General Chief complaint: Shortness of Breath/Dyspnea Stated complaint: SOB. confusion Time Seen by Provider: 09/23/23 18:29 Source: patient Mode of arrival: Ambulatory History of Present Illness HPI narrative: 70-year-old woman with a history of congestive heart failure currently on torsemide 10 mg a.m. and p.m. with an additional 10 mg as needed and foot elevation with increasing dyspnea lower extremity edema, chronic kidney disease, coronary artery disease, type 2 diabetes who presents today with increasing dyspnea over the course of today. She does not feel that she has cough, fever, chills. She frequently will have episodes of gagging and vomiting at her baseline does not feel that this is changed. No headaches. Her daughter with whom she lives and who administers all of her medications states that she has been getting all of her medication but she was concerned that her lower extremities were bit more swollen this morning with juarez left by her socks which is somewhat unusual for her. Related Data Home Medications Medication Instructions Recorded Confirmed ascorbic acid (vitamin C) 500 mg 500 mg PO QAM 07/25/21 08/27/23 chewable tablet hykmnyuowxba-quvenxte-ehrglr tablet 1 tab PO QAM 07/25/21 08/27/23 carvedilol 25 mg tablet 25 mg PO BID 02/26/22 09/23/23 glycine amino acid 2 g PO 03/06/23 08/27/23 magnesium gycinate 200 mg PO 03/06/23 08/27/23 Previous Rx's Medication Instructions Recorded cholecalciferol (vitamin D3) 25 25 mcg PO BID #180 tabs 09/22/21 mcg (1,000 unit) tablet clopidogrel 75 mg tablet 75 mg PO QAM #90 tabs 12/04/21 blood sugar diagnostic (Blood #100 ea 02/21/22 Glucose Test strips) atorvastatin 40 mg tablet 40 mg PO BEDTIME #90 tabs 05/07/22 blood-glucose meter,continuous #1 ea 12/04/22 (Mayi [employer] G7 Chief Mechanical Engineer) famotidine 40 mg tablet 40 mg PO QAM #90 tabs 03/13/23 gabapentin 100 mg capsule 200 mg (2 x 100 mg) PO ONCE PM 07/15/23 #180 caps glipizide 5 mg tablet 2.5 mg (1/2 x 5 mg) PO DAILY #90 08/19/23 tabs sertraline 50 mg tablet 100 mg (2 x 50 mg) PO DAILY #90 08/27/23 tabs pantoprazole 40 mg tablet,delayed 40 mg PO DAILY #90 tabs 09/10/23 release Allergies Allergy/AdvReac Type Severity Reaction Status Date / Time dimenhydrinate AdvReac Intermediate restless Verified 09/23/23 18:29 [From Dramamine] legs diphenhydramine AdvReac Intermediate restless Verified 09/23/23 18:29 [From Benadryl] legs hydrocodone AdvReac Intermediate Nausea Verified 09/23/23 18:29 Review of Systems Review of Systems Narrative: Pertinent positive and negative findings as per HPI Patient History Medical History (Updated 09/23/23 @ 20:52 by Thelma Anton MD) Dementia CAD (coronary artery disease) HFrEF (heart failure with reduced ejection fraction) Fall COVID-19 Osteoarthritis Major depression in partial remission Type 2 diabetes mellitus Plaque psoriasis Myocardial infarction Surgical History History of surgery on right wrist History of bilateral hip replacements History of left knee surgery History of cholecystectomy History of appendectomy Family History Mother Congestive heart failure Brother Congestive heart failure Social History household members: family and children Smoking Status: Never smoker alcohol intake: never substance use type: does not use Smoking Status: Never smoker Substance Use Type: does not use Exam Initial Vital Signs Initial Vital Signs: Vital Signs Temperature 97.6 F 09/23/23 18:23 Pulse Rate 84 09/23/23 18:23 Respiratory Rate 18 09/23/23 18:23 Blood Pressure 165/79 H 09/23/23 18:23 Pulse Oximetry 97 09/23/23 18:23 Oxygen Delivery Method Room Air 09/23/23 18:23 General: Healthy appearing, in no acute distress. HEENT: Moist mucous membranes, normal sclera with reactive pupils, Neck: +JVD at 45?, supple Respiratory: Lungs with scattered wheeze in all lung dutton and mild bibasilar crackles Full and symmetrical air movement. No respiratory distress, oxygen saturations are 97% on room air, no accessory muscle use and able to speak in full sentences Cardiac: Regular rate and rhythm no murmurs no bruits Abdomen: Soft, nontender, good bowel tones, no flank pain Skin: Warm and dry, no rashes Neurologic: Grossly neurologically intact with no obvious asymmetries or abnormalities Extremities: No trauma, well perfused. Minimal lower extremity edema Psych: Cooperative, appropriate insight and affect Course Orders Ordered: ED Orders 09/23/23 18:17 XR chest 1V Stat EKG-12 Lead Stat Measure peak expiratory flow ONCE RT Consult Eval and Treat NOW 09/23/23 18:28 Respiratory Panel (Film Array) Stat 09/23/23 18:30 Complete Blood Count AUTO DIFF Stat Comprehensive Metabolic Panel Stat Lactate (Lactic Acid) Stat NT-proBNP (BNP-Adult 18+) Stat Prothrombin Time INR Stat Troponin I Stat Discontinued Medications Furosemide 80 mg/ Sodium (Chloride) 58 mls @ 116 mls/hr IV NOW ONE Stop: 09/23/23 19:26 Last Infusion: 09/23/23 20:27 Dose: Infused Documented By: Admin: 09/23/23 19:47 Dose: 116 mls/hr Documented By: AB Vital Signs Vital signs: Vital Signs - 8 hr 09/23/23 18:23 Temperature 97.6 F Pulse Rate 84 Respiratory Rate 18 Blood Pressure 165/79 H Pulse Oximetry 97 Oxygen Delivery Method Room Air Medical Decision Making Lab Data 09/23/23 18:30 09/23/23 18:30 Labs: Lab Results 09/23/23 09/23/23 Range/Units 18:28 18:30 WBC 6.1 (4.5-11.0) X10^3/uL RBC 4.83 (4.0-5.2) X10^6/uL Hgb 13.4 (12.0-16.0) g/dL Hct 41.6 (36-46) % MCV 86.3 (80-100) fL MCH 27.8 (26-34) PG MCHC 32.2 (30-36) % RDW 14.4 (11.6-14.8) % Plt Count 255 (150-400) X10^3/uL Neut % (Auto) 77.3 H (50-75) % Lymph % (Auto) 9.6 L (25-40) % Cameron % (Auto) 10.4 (3-14) % Eos % (Auto) 1.6 L (2-4) % Baso % (Auto) 1.1 (0-2) % Neut # (Auto) 4700 (2788-0188) /uL Lymph # (Auto) 600 L (4981-6176) /uL Cameron # (Auto) 600 (0-900) /uL Eos # (Auto) 100 (0-450) /uL Baso # (Auto) 100 (0-100) /uL PT 17.7 H (9.4-12.5) SECONDS INR 1.5 H (0.9-1.3) Sodium 137 (137-145) mmol/L Potassium 3.9 (3.4-5.1) mmol/L Chloride 104 (98-107) mmol/L Carbon Dioxide 22 (22-32) mmol/L BUN 34 H (7-17) mg/dL Creatinine 2.07 H (0.52-1.04) mg/dL Estimated GFR 24 L (>60) mL/min BUN/Creatinine Ratio 16.4 (6-22) Glucose 137 H (80-110) mg/dL Lactate 1.6 (0.7-2.1) mmol/L Calcium 8.9 (8.4-10.2) mg/dL Total Bilirubin 0.7 (0.2-1.3) mg/dL AST 33 (14-36) IU/L ALT 18 (<35) IU/L Alkaline Phosphatase 121 (38-126) U/L Troponin I < 0.012 (0.01-0.034) ng/mL NT-Pro-B Natriuret Pep 54962 H (<450) pg/mL Total Protein 6.7 (6.3-8.2) g/dL Albumin 4.0 (3.5-5.0) g/dL Globulin 2.7 (1.7-4.1) g/dL Albumin/Globulin Ratio 1.5 (1.0-2.8) Chlamy pneumoniae PCR Not detected (Not Detect) Adenovirus (PCR) Not detected (Not Detect) B.parapertussis DNA PCR Not detected (Not Detecte) Coronavirus OC43 (PCR) Not detected (Not Detect) Coronavirus HKU1 (PCR) Not detected (Not Detect) Coronavirus 229E (PCR) Not detected (Not Detect) SARS-CoV-2 (PCR) Not detected (Not Detecte) Coronavirus NL63 (PCR) Not detected (Not Detect) Human Metapneumovir PCR Not detected (Not Detect) Influenza A (H1) PCR TNP Influ A (H1N1 Seas) PCR TNP Influenza A (PCR) TNP Influenza A (H3) PCR TNP Influenza Type A (PCR) Not detected (Not Detect) Influenza Type B (PCR) Not detected (Not Detect) M. pneumoniae (PCR) Not detected (Not Detect) Parainfluenza 1 (PCR) Not detected (Not Detect) Parainfluenza 2 (PCR) Not detected (Not Detect) Parainfluenza 3 (PCR) Not detected (Not Detect) Parainfluenza 4 (PCR) Not detected (Not Detect) RSV (PCR) Not detected (Not Detect) Entero/Rhino (PCR) Not detected (Not Detect) MDM Narrative Medical decision making narrative: CC: Increasing dyspnea over the course of the day Complicating co-morbidities: Congestive heart failure, coronary artery disease, diabetes, chronic kidney disease, cognitive decline Data collected from: patient, daughter Social determinants of health that may influence the patients condition: Patient does live with her daughter Medical records reviewed: Family practice visit and diabetes follow up from August of this year reviewed. Multiple ER visits with dyspnea for various reasons. Last hospitalization was January of 2022 for chest pain and dyspnea. Differential considered: Volume overload, severe congestive heart failure, acute coronary syndrome, respiratory issues, pleural effusion, pneumothorax Exam documented above, pertinent findings include: Patient with some cognitive decline but able to cooperate with questioning. Cardiac wheeze and mild bibasilar crackles appreciated. Minimal lower extremity edema Lab Test results independently reviewed as above. Pertinent findings: CBC is unremarkable with no evidence of acute anemia Chemistries are relatively reassuring, baseline creatinine is 2. Initial troponin is undetectable Initial lactic acid is within normal limits Respiratory panel is unremarkable BNP=58,600 Independently reviewed EKG: EKG is notable for first-degree block but otherwise regular sinus rhythm with no acute ischemia appreciated Imaging studies independently reviewed: Chest x-ray shows mild cardiomegaly and increased interstitial findings consistent with her clinical presentation and mild congestive heart failure Treatments:80 mg IV lasix Discussion: 78-year-old woman with a mild exacerbation to her chronic congestive heart failure. She currently is on 20 mg of torsemide split b.i.d.. She is able to lay flat, speak in full sentences, is not hypoxic and has safe home as well as a daughter who was administered medications. There was no evidence of acute coronary syndrome, infection or additional complication. At this point there was no indication for hospitalization or advanced imaging. We will ask her to increase her torsemide to 20 mg in the morning the additional 10 mg at lunchtime and have her follow up with her primary care doctor next week. Daughter is well aware of signs and symptoms of worsening heart failure and reasons to return to the emergency department. At this time she is safe for discharge Discharge Plan Departure Patient Disposition: Home Clinical Impression: Acute exacerbation of CHF (congestive heart failure) Qualifiers: Heart failure type: systolic Qualified Code(s): I50.23 - Acute on chronic systolic (congestive) heart failure Instructions: DI for Heart Failure Activity Restrictions/Additional Instructions: Thank you for coming in today Your clinical exam, chest x-ray and blood work do suggest mild while you overload consistent with an exacerbation of your congestive heart failure. Fortunately, there does not appear to be any sign of viral infection, bacterial infection, heart attack or heart attack like syndrome. There was no severe anemia, you currently are not requiring any oxygen and do not need to be hospitalized today. In the emergency department you were given an extra dose of furosemide through your IV. This is going to make you Pee more through the evening. Tomorrow, I am going to ask that you increase your torsemide from 20 mg a day to 30 mg a day. You may find that taking 2 pills 1st thing in the morning and then another pill at lunch time we will help you get rid of more fluid in the morning but allow you a bit of a respite from having to get up to go to the bathroom multiple times during the night Please do schedule follow up appointment with your primary care physician for next week. If you do have a scale I would recommend that you weigh yourself daily 1st thing in the morning so that we can show that you are losing couple of lb in water weight. If you find that you are getting worse or develop any new symptoms, please feel free to return to the emergency department for further evaluation. Prescriptions: No Action cholecalciferol (vitamin D3) 25 mcg (1,000 unit) tablet 25 mcg PO BID Qty: 180 3RF clopidogrel 75 mg tablet 75 mg PO QAM Qty: 90 1RF atorvastatin 40 mg tablet 40 mg PO BEDTIME Qty: 90 1RF famotidine 40 mg tablet 40 mg PO QAM Qty: 90 2RF gabapentin 100 mg capsule 200 mg PO ONCE PM Qty: 180 0RF glipizide 5 mg tablet 2.5 mg PO DAILY Qty: 90 1RF Rx Instructions: Take 1/2 tablet daily by mouth. pantoprazole 40 mg tablet,delayed release (DR/EC) 40 mg PO DAILY Qty: 90 0RF (DME) Dexcom G7 Chief Mechanical Engineer Misc See Rx Instructions .ROUTE .MEDSUPPLY Qty: 1 1RF Rx Instructions: USE TO MONITOR BLOOD SUGAR LEVELS CONTINUOUSLY. REPLACE EVERY 365 DAYS OR IF BROKEN glycine amino acid 2 g PO magnesium gycinate 200 mg PO sertraline 50 mg tablet 100 mg PO DAILY Qty: 90 1RF (DME) Blood Glucose Test Strip See Rx Instructions .ROUTE .MEDSUPPLY Qty: 100 2RF Rx Instructions: Use to test blood glucose ONCE daily. carvedilol 25 mg tablet 25 mg PO BID Rx Instructions: must administer with a meal/food ascorbic acid (vitamin C) 500 mg Tablet,Chewable 500 mg PO QAM [id number] Tablet 1 tab PO QAM Referrals: Magalys Deluca DO [Primary Care Provider] - Stand Alone Forms: Patient Portal/API
[2023-09-23 19:12] LABS: Troponin I < 0.012 ng/mL (0.01-0.034)
[2023-09-23 19:25] LABS: NT-proBNP (BNP-Adult 18+) 58600 pg/mL (<450)
[2023-09-23 19:40] LABS: Adenovirus Not Detected (Not Detect); B. parapertussis Not Detected (Not Detecte); Bordetella pertussis Not Detected (Not Detect); Coronavirus 229E Not Detected (Not Detect); Coronavirus HKU1 Not Detected (Not Detect); Coronavirus NL 63 Not Detected (Not Detect); Coronavirus OC43 Not Detected (Not Detect); Human Metapneumovirus Not Detected (Not Detect); Human Rhinovirus/Enterovirus Not Detected (Not Detect); Influenza B Not Detected (Not Detect); Parainfluenza Virus 1 Not Detected (Not Detect); Parainfluenza Virus 2 Not Detected (Not Detect); Parainfluenza Virus 3 Not Detected (Not Detect); Parainfluenza Virus 4 Not Detected (Not Detect); Respiratory Syncytial Virus Not Detected (Not Detect); SARS- CoV-2 Not Detected (Not Detecte)
[2023-09-23 19:41] LABS: Chlamydophila pneumoniae Not Detected (Not Detect); Influenza A Not Detected (Not Detect); Mycoplasma pneumoniae Not Detected (Not Detect)
[2023-09-23] MEDS: FUROSEMIDE 80 MG in SODIUM CHLORIDE 0.9% 50 ML 116 MG IV (19:47)
== END 2023-09-23 21:37 | disposition home or self-care (01) ==
PROVIDERS: Emergency Provider Emergency Medicine; Family Provider Family Medicine; PCP Family Medicine
DX: I50.23 Acute on chronic systolic (congestive) heart failure (principal)
CPT/HCPCS: 36415; 71045; 80053; 83605; 83880; 84484; 85025; 85610; 87633; 93005; 93010; 96365; 99284; J1940

== ENCOUNTER 2023-10-22 20:32 | Inpatient (IN) | payer MEDICARE, OTHER, SELFPAY ==
[2022-01-20 13:24] VITALS: BMI 29.7
[2023-10-22] VITALS (9 sets, daily range): BP systolic 120–173; BP diastolic 67–103; PULSE 101–111; RESP 18–31; TEMP 36.5; O2SAT 93–97
[2023-10-22] MEDS: SODIUM CHLORIDE 0.9% 1,000 ML 1000 ML IV (20:48)
[2023-10-22] MEDS: ONDANSETRON 4 MG/2 ML INJ IV (20:48)
--- NOTE | 2023-10-22 21:02 | EKG_ITS ---
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
[2023-10-22 21:22] LABS: Add Manual Diff / Slide Review NO; Basophils Absolute Auto 100 /uL (0-100); Eosinophils Absolute Auto 0 /uL (0-450); Eosinophils Percent Auto 0.5 % (2-4); Hematocrit 44.3 % (36-46); Hemoglobin 14.3 g/dL (12.0-16.0); Lymphocytes Absolute Auto 900 /uL (1100-4500); Lymphocytes Percent Auto 9.9 % (25-40); Mean Corpuscular HGB Conc 32.4 % (30-36); Mean Corpuscular Hemoglobin 26.9 PG (26-34); Mean Corpuscular Volume 82.8 fL (80-100); Monocytes Absolute Auto 700 /uL (0-900); Monocytes Percent Auto 8.1 % (3-14); Neutrophils Absolute Auto 7400 /uL (1500-7000); Neutrophils Percent Auto 80.5 % (50-75); Platelet Count 296 X10^3/uL (150-400); Red Blood Cell Count 5.34 X10^6/uL (4.0-5.2); Red Cell Distribution Width 15.3 % (11.6-14.8); White Blood Cell Count 9.2 X10^3/uL (4.5-11.0)
[2023-10-22 21:28] LABS: Alanine Aminotransferase 22 IU/L (<35); Albumin 4.3 g/dL (3.5-5.0); Albumin Globulin Ratio 1.2 (1.0-2.8); Alkaline Phosphatase 175 U/L (38-126); Aspartate Aminotransferase 41 IU/L (14-36); BUN Creatinine Ratio 17.7 (6-22); Bilirubin Total 1.2 mg/dL (0.2-1.3); Blood Urea Nitrogen 39 mg/dL (7-17); Calcium 9.7 mg/dL (8.4-10.2); Carbon Dioxide 26 mmol/L (22-32); Chloride 99 mmol/L (98-107); Estimated Glomerular Filt Rate 22 mL/min (>60); Globulin 3.5 g/dL (1.7-4.1); Glucose 147 mg/dL (80-110); HEMOLYSIS 18 (0-50); Lipase 78 U/L (23-300); Potassium 4.2 mmol/L (3.4-5.1); Sodium 135 mmol/L (137-145); Total Protein 7.8 g/dL (6.3-8.2)
--- NOTE | 2023-10-22 21:38 | PC.NURSE ---
Intermittent cath done on patient for a urine sample. Patient is incontinent and was unable to urinate when placed on bedpan. 80cc total urine output from cath. urine sent to the lab.
[2023-10-22 22:00] LABS: Appearance Urine UA CLOUDY; Bilirubin Urine UA 1+ (NEGATIVE); Glucose Urine UA NEGATIVE (Negative); Ketones Urine UA TRACE (NEGATIVE); Leukocyte Esterase Urine UA 3+ (NEGATIVE); Nitrite Urine UA NEGATIVE (Negative); Occult Blood Urine UA 2+ (Negative); Protein Urine UA 3+ (Negative)
[2023-10-22 22:01] LABS: Bacteria Urine Many (>30); Culture Indicated Urine Specimen Cultured; RBC Urine 5-10/HPF (0-5/HPF); Squamous Epithelial Cell Urine 5-10 /HPF (0-5/HPF); Urine Volume 10mL (spun); WBC Urine 10-30/HPF (0-5/HPF)
[2023-10-22 22:03] LABS: Color Urine UA Yellow; Ictotest Urine Positive (Negative)
--- NOTE | 2023-10-22 22:42 | ED.GENADULT ---
HPI - General Adult General Chief complaint: Abdominal Pain Stated complaint: unable to keep anything down, confusion, weakness Time Seen by Provider: 10/22/23 22:41 Source: patient and family Mode of arrival: Wheelchair Limitations: no limitations History of Present Illness HPI narrative: 78-year-old female with history of congestive heart failure, chronic kidney disease, coronary artery disease who has been told medical management only, type 2 diabetes presents with complaint of some new confusion, suprapubic pain, nausea and vomiting that has been present for the last 24 hours. No reported fevers. Family states she seems a little bit more confused than typical. She does have some baseline dementia. She describes pain is suprapubic, states a little bit of flank pain but describes it as mild. States normal bowel movements no black or bloody stools no diarrhea or constipation reported. No dysuria urgency or frequency reported. Has had prior hysterectomy, cholecystectomy, she has had prior cardiac catheterization in 2019 and was told had small-vessel disease nothing amenable to cardiac stents. That she is medical management. No tobacco, alcohol or recreational drugs. Has adverse reaction to Benadryl. Dr. Deluca is her primary care physician. Patient follows with Dr. Grewal for nephrology. Related Data Home Medications Medication Instructions Recorded Confirmed ascorbic acid (vitamin C) 500 mg 500 mg PO QAM 07/25/21 10/01/23 chewable tablet [id number] tablet 1 tab PO QAM 07/25/21 10/01/23 carvedilol 25 mg tablet 25 mg PO BID 02/26/22 10/01/23 glycine amino acid 2 g PO 03/06/23 10/01/23 magnesium gycinate 200 mg PO 03/06/23 10/01/23 Previous Rx's Medication Instructions Recorded cholecalciferol (vitamin D3) 25 25 mcg PO BID #180 tabs 09/22/21 mcg (1,000 unit) tablet clopidogrel 75 mg tablet 75 mg PO QAM #90 tabs 12/04/21 blood sugar diagnostic (Blood #100 ea 02/21/22 Glucose Test strips) atorvastatin 40 mg tablet 40 mg PO BEDTIME #90 tabs 05/07/22 blood-glucose meter,continuous #1 ea 12/04/22 ([employer]ex[employer] G7 [employer]) famotidine 40 mg tablet 40 mg PO QAM #90 tabs 03/13/23 glipizide 5 mg tablet 2.5 mg (1/2 x 5 mg) PO DAILY #90 08/19/23 tabs sertraline 50 mg tablet 100 mg (2 x 50 mg) PO DAILY #90 08/27/23 tabs pantoprazole 40 mg tablet,delayed 40 mg PO DAILY #90 tabs 09/10/23 release nystatin 100,000 unit/gram topical 1 applic topical BID #15 grams 10/01/23 powder gabapentin 100 mg capsule 200 mg (2 x 100 mg) PO ONCE PM 10/22/23 #180 caps Allergies Allergy/AdvReac Type Severity Reaction Status Date / Time dimenhydrinate AdvReac Intermediate restless Verified 10/01/23 10:11 [From Dramamine] legs diphenhydramine AdvReac Intermediate restless Verified 10/01/23 10:11 [From Benadryl] legs hydrocodone AdvReac Intermediate Nausea Verified 10/01/23 10:11 Review of Systems Review of Systems ROS Unobtainable: All systems reviewed & are unremarkable except as noted in HPI and below Patient History Medical History Dementia CAD (coronary artery disease) HFrEF (heart failure with reduced ejection fraction) Fall COVID-19 Osteoarthritis Major depression in partial remission Type 2 diabetes mellitus Plaque psoriasis Myocardial infarction Surgical History History of surgery on right wrist History of bilateral hip replacements History of left knee surgery History of cholecystectomy History of appendectomy Family History Mother Congestive heart failure Brother Congestive heart failure Social History household members: family and children Smoking Status: Never smoker alcohol intake: never substance use type: does not use Smoking Status: Never smoker Substance Use Type: does not use Exam Narrative Exam Narrative: GENERAL: Alert and oriented, elderly female in mild distress. Patient can answer questions but does sometimes get confused during discussion. HEENT: Head normocephalic, atraumatic, EOMI, pupils reactive, face symmetric, moist mucous membranes NECK: Supple, full range of motion CARDIOVASCULAR: Slightly tachycardic regular rate and rhythm without murmurs, rubs or gallops. No JVD. No edema bilateral lower extremities. RESPIRATORY: Breath sounds equal bilaterally, no wheezes rales or rhonchi. No tachypnea. ABDOMEN: Soft, male suprapubic tenderness. Normoactive bowel sounds all 4 quadrants. No guarding or rebound, rigidity, no mass : No CVA tenderness bilaterally. EXTREMITIES: Normal range of motion, no clubbing or edema. Neurovascularly intact NEUROLOGICAL: Cranial nerves II through XII grossly intact. Moving all extremities SKIN: Warm, dry, no petechiae, no rashes or lesions. Initial Vital Signs Initial Vital Signs: Vital Signs Temperature 97.7 F 10/22/23 20:42 Pulse Rate 107 H 10/22/23 20:42 Respiratory Rate 22 10/22/23 20:42 Blood Pressure 152/86 H 10/22/23 20:42 Pulse Oximetry 96 10/22/23 20:42 Oxygen Delivery Method Room Air 10/22/23 20:42 Course Orders Ordered: ED Orders 10/22/23 20:39 EKG-12 Lead Stat 10/22/23 20:48 Complete Blood Count AUTO DIFF Stat Comprehensive Metabolic Panel Stat Lactate (Lactic Acid) Stat Lipase Stat Procalcitonin Stat 10/22/23 21:38 Ictotest Urine Stat Urinalysis and Microscopic Stat Urine Culture Stat 10/22/23 23:30 Blood Culture Stat Acetaminophen (Acetaminophen 325 Mg Tablet) 650 mg PO Q6H PRN PRN Reason: Fever/Mild Pain (1-3) Sodium Chloride (Normal Saline 0.9%) 1,000 mls @ 125 mls/hr IV CONT [facility] Last Infusion: 10/23/23 00:20 Dose: 0 mls/hr Documented By: Admin: 10/22/23 23:16 Dose: 125 mls/hr Documented By: MICHELLE Sodium Chloride (Normal Saline 0.9%) 1,000 mls @ 70 mls/hr IV CONT [facility] Last Admin: 10/23/23 02:27 Dose: 70 mls/hr Documented By: CT Naloxone HCl (Naloxone 0.4 Mg/Ml Vial) 0.2 mg IV Q2MIN PRN PRN Reason: Opiate Reversal Nystatin (Nystatin Cream 30 Gm) 1 applic TOP BID [facility] Last Admin: 10/23/23 02:26 Dose: Not Given Documented By: CT Ondansetron HCl (Ondansetron 4 Mg/2 Ml Inj) 4 mg IV NOW PRN PRN Reason: Nausea And Vomiting Last Admin: 10/22/23 20:48 Dose: 4 mg Documented By: SARMAD Ondansetron HCl (Ondansetron 4 Mg Odt) 4 mg PO NOW PRN PRN Reason: Nausea And Vomiting Discontinued Medications Sodium Chloride (Normal Saline 0.9%) 1,000 mls @ 1,000 mls/hr IV BOLUS ONE Stop: 10/22/23 21:39 Last Infusion: 10/22/23 22:11 Dose: Infused Documented By: Admin: 10/22/23 20:48 Dose: 1,000 mls/hr Documented By: SARMAD Ceftriaxone Sodium 1,000 mg/ (Sodium Chloride) 100 mls @ 200 mls/hr IV NOW ONE Stop: 10/22/23 23:01 Last Infusion: 10/23/23 00:14 Dose: Infused Documented By: Admin: 10/22/23 23:55 Dose: 200 mls/hr Documented By: MICHELLE Acetaminophen (Ofirmev) 1,000 mg in 100 mls @ 400 mls/hr IV NOW ONE Stop: 10/22/23 23:14 Last Infusion: 10/22/23 23:40 Dose: Infused Documented By: Admin: 10/22/23 23:16 Dose: 400 mls/hr Documented By: MICHELLE Vital Signs Vital signs: Vital Signs - 8 hr 10/22/23 21:30 10/22/23 21:30 10/22/23 22:00 Pulse Rate 101 H Respiratory Rate 21 Blood Pressure 135/79 120/67 Pulse Oximetry 95 Oxygen Delivery Method Room Air 10/22/23 22:00 10/22/23 22:30 10/22/23 22:31 Pulse Rate 103 H 105 H 104 H Respiratory Rate 23 20 18 Blood Pressure Pulse Oximetry 95 93 93 Oxygen Delivery Method Room Air Room Air 10/22/23 22:31 10/22/23 23:00 10/22/23 23:00 Pulse Rate 103 H Respiratory Rate 18 Blood Pressure 158/102 H 147/90 H Pulse Oximetry 94 Oxygen Delivery Method 10/22/23 23:30 10/22/23 23:31 10/22/23 23:31 Pulse Rate 101 H 101 H Respiratory Rate 31 H 30 H Blood Pressure 173/77 H Pulse Oximetry 96 93 Oxygen Delivery Method Room Air Medical Decision Making Lab Data 10/22/23 20:48 10/22/23 20:48 Labs: Lab Results 10/22/23 10/22/23 10/22/23 Range/Units 20:48 21:38 21:38 WBC 9.2 (4.5-11.0) X10^3/uL RBC 5.34 H (4.0-5.2) X10^6/uL Hgb 14.3 (12.0-16.0) g/dL Hct 44.3 (36-46) % MCV 82.8 (80-100) fL MCH 26.9 (26-34) PG MCHC 32.4 (30-36) % RDW 15.3 H (11.6-14.8) % Plt Count 296 (150-400) X10^3/uL Neut % (Auto) 80.5 H (50-75) % Lymph % (Auto) 9.9 L (25-40) % Ashley % (Auto) 8.1 (3-14) % Eos % (Auto) 0.5 L (2-4) % Baso % (Auto) 1.0 (0-2) % Neut # (Auto) 7400 H (8210-6195) /uL Lymph # (Auto) 900 L (8988-8606) /uL Ashley # (Auto) 700 (0-900) /uL Eos # (Auto) 0 (0-450) /uL Baso # (Auto) 100 (0-100) /uL Sodium 135 L (137-145) mmol/L Potassium 4.2 (3.4-5.1) mmol/L Chloride 99 (98-107) mmol/L Carbon Dioxide 26 (22-32) mmol/L BUN 39 H (7-17) mg/dL Creatinine 2.20 H (0.52-1.04) mg/dL Estimated GFR 22 L (>60) mL/min BUN/Creatinine Ratio 17.7 (6-22) Glucose 147 H (80-110) mg/dL Lactate 2.8 H (0.7-2.1) mmol/L Calcium 9.7 (8.4-10.2) mg/dL Total Bilirubin 1.2 (0.2-1.3) mg/dL AST 41 H (14-36) IU/L ALT 22 (<35) IU/L Alkaline Phosphatase 175 H (38-126) U/L Total Protein 7.8 (6.3-8.2) g/dL Albumin 4.3 (3.5-5.0) g/dL Globulin 3.5 (1.7-4.1) g/dL Albumin/Globulin Ratio 1.2 (1.0-2.8) Lipase 78 (23-300) U/L Procalcitonin 0.119 (<0.5) ng/mL Urine Color Yellow Urine Appearance Cloudy Urine pH 6.0 (4.5-8.0) Ur Specific [place] 1.020 (1.000-1.035) Urine Protein 3+ H (Negative) Urine Glucose (UA) Negative (Negative) g/dL Urine Ketones Trace H (NEGATIVE) Urine Occult Blood 2+ H (Negative) Urine Nitrate Negative (Negative) Urine Bilirubin 1+ H (NEGATIVE) Ur Bilirubin Confirm Positive H (Negative) Urine Urobilinogen 1.0 (0.2) E.U./dL Ur Leukocyte Esterase 3+ H (NEGATIVE) Urine RBC Cancelled 5-10/hpf H Urine WBC Cancelled Ur Squamous Epith Cells Ur Transition Epith Cell Ur Renal Epithelial Cell Calcium Oxalate Crystal Uric Acid Crystals Triple Phos Crystals Other Crystals Amorphous Sediment Urine Bacteria Hyaline Casts Granular Casts RBC Casts WBC Casts Other Casts Urine Mucus Urine Trichomonas Urine Yeast Urine Sperm Ur Culture Indicated? Micro UA Comment Vol Urine Centrifuged 10/22/23 10/22/23 10/22/23 Range/Units 21:38 21:38 21:38 WBC (4.5-11.0) X10^3/uL RBC (4.0-5.2) X10^6/uL Hgb (12.0-16.0) g/dL Hct (36-46) % MCV (80-100) fL MCH (26-34) PG MCHC (30-36) % RDW (11.6-14.8) % Plt Count (150-400) X10^3/uL Neut % (Auto) (50-75) % Lymph % (Auto) (25-40) % Ashley % (Auto) (3-14) % Eos % (Auto) (2-4) % Baso % (Auto) (0-2) % Neut # (Auto) (8095-4539) /uL Lymph # (Auto) (1130-0312) /uL Ashley # (Auto) (0-900) /uL Eos # (Auto) (0-450) /uL Baso # (Auto) (0-100) /uL Sodium (137-145) mmol/L Potassium (3.4-5.1) mmol/L Chloride (98-107) mmol/L Carbon Dioxide (22-32) mmol/L BUN (7-17) mg/dL Creatinine (0.52-1.04) mg/dL Estimated GFR (>60) mL/min BUN/Creatinine Ratio (6-22) Glucose (80-110) mg/dL Lactate (0.7-2.1) mmol/L Calcium (8.4-10.2) mg/dL Total Bilirubin (0.2-1.3) mg/dL AST (14-36) IU/L ALT (<35) IU/L Alkaline Phosphatase (38-126) U/L Total Protein (6.3-8.2) g/dL Albumin (3.5-5.0) g/dL Globulin (1.7-4.1) g/dL Albumin/Globulin Ratio (1.0-2.8) Lipase (23-300) U/L Procalcitonin (<0.5) ng/mL Urine Color Urine Appearance Urine pH (4.5-8.0) Ur Specific [place] (1.000-1.035) Urine Protein (Negative) Urine Glucose (UA) (Negative) g/dL Urine Ketones (NEGATIVE) Urine Occult Blood (Negative) Urine Nitrate (Negative) Urine Bilirubin (NEGATIVE) Ur Bilirubin Confirm (Negative) Urine Urobilinogen (0.2) E.U./dL Ur Leukocyte Esterase (NEGATIVE) Urine RBC Urine WBC 10-30/hpf H Ur Squamous Epith Cells Cancelled 5-10 /hpf H Ur Transition Epith Cell Cancelled Ur Renal Epithelial Cell Cancelled Calcium Oxalate Crystal Cancelled Uric Acid Crystals Cancelled Triple Phos Crystals Cancelled Other Crystals Cancelled Amorphous Sediment Cancelled Urine Bacteria Cancelled Many (>30) H Hyaline Casts Cancelled Granular Casts Cancelled RBC Casts Cancelled WBC Casts Cancelled Other Casts Cancelled Urine Mucus Cancelled Urine Trichomonas Cancelled Urine Yeast Cancelled Urine Sperm Cancelled Ur Culture Indicated? Cancelled Micro UA Comment Vol Urine Centrifuged 10/22/23 10/22/23 10/22/23 Range/Units 21:38 21:38 23:30 WBC (4.5-11.0) X10^3/uL RBC (4.0-5.2) X10^6/uL Hgb (12.0-16.0) g/dL Hct (36-46) % MCV (80-100) fL MCH (26-34) PG MCHC (30-36) % RDW (11.6-14.8) % Plt Count (150-400) X10^3/uL Neut % (Auto) (50-75) % Lymph % (Auto) (25-40) % Ashley % (Auto) (3-14) % Eos % (Auto) (2-4) % Baso % (Auto) (0-2) % Neut # (Auto) (8072-7712) /uL Lymph # (Auto) (0997-3930) /uL Ashley # (Auto) (0-900) /uL Eos # (Auto) (0-450) /uL Baso # (Auto) (0-100) /uL Sodium (137-145) mmol/L Potassium (3.4-5.1) mmol/L Chloride (98-107) mmol/L Carbon Dioxide (22-32) mmol/L BUN (7-17) mg/dL Creatinine (0.52-1.04) mg/dL Estimated GFR (>60) mL/min BUN/Creatinine Ratio (6-22) Glucose (80-110) mg/dL Lactate 2.1 (0.7-2.1) mmol/L Calcium (8.4-10.2) mg/dL Total Bilirubin (0.2-1.3) mg/dL AST (14-36) IU/L ALT (<35) IU/L Alkaline Phosphatase (38-126) U/L Total Protein (6.3-8.2) g/dL Albumin (3.5-5.0) g/dL Globulin (1.7-4.1) g/dL Albumin/Globulin Ratio (1.0-2.8) Lipase (23-300) U/L Procalcitonin (<0.5) ng/mL Urine Color Urine Appearance Urine pH (4.5-8.0) Ur Specific [place] (1.000-1.035) Urine Protein (Negative) Urine Glucose (UA) (Negative) g/dL Urine Ketones (NEGATIVE) Urine Occult Blood (Negative) Urine Nitrate (Negative) Urine Bilirubin (NEGATIVE) Ur Bilirubin Confirm (Negative) Urine Urobilinogen (0.2) E.U./dL Ur Leukocyte Esterase (NEGATIVE) Urine RBC Urine WBC Ur Squamous Epith Cells Ur Transition Epith Cell Ur Renal Epithelial Cell Calcium Oxalate Crystal Uric Acid Crystals Triple Phos Crystals Other Crystals Amorphous Sediment Urine Bacteria Hyaline Casts Granular Casts RBC Casts WBC Casts Other Casts Urine Mucus Urine Trichomonas Urine Yeast Urine Sperm Ur Culture Indicated? Specimen cultured Micro UA Comment Cancelled Vol Urine Centrifuged Cancelled 10ml (spun) ECG Data Attestation: I personally reviewed and interpreted this ECG as follows: Prior ECG tracings: available for review Interpretation: Sinus tach which are atrial complexes. Patient has a P wave with every QRS, AFib, rate of 102 [place] 208 QRS is 76 QTC of 471. Patient has prior from 09/23/2023 which appears similar. MDM Narrative Medical decision making narrative: Labs show white count of 9.2 hemoglobin of 14.3, hematocrit of 44 platelets of 296, predominance of neutrophils. Sodium 135, potassium of 4.2 chloride 99 CO2 of 26 with a BUN of 39 creatinine 2.2, patient appears to run in the 2 range from 2.42-2.07 over the past year, glucose is 147, AST is 41 but ALT is 22 with a total bili 1.2 alk-phos is 175. Lipase is 78 Urine shows 3+ protein, trace ketones 2+ blood, 1+ bili, positive for bilirubin, 3+ leuks with 5-10 RBCs 10-30 WBCs 5-10 squamous many bacteria. EKG shows sinus tach no changes from prior. Patient received fluids and Zofran. Patient continues to be tachycardic, is still nauseated not actively vomiting at this time. Patient was given a dose of IV antibiotic, continued on fluids but was not given a 30 cc/kilos bolus as she is known cardiomyopathy with history of congestive heart failure. Did add on lactate, procalcitonin and blood cultures. Lactate 2.8, procalcitonin is pending, blood cultures are pending as well. Spoke with hospitalist, Dr. King, observation asked that we obtain patient's DNR status, spoke with family, no intubation, but yes to compressions. Discharge Plan Departure Patient Disposition: Admitted as Observation Clinical Impression: Acute UTI, Sepsis, CKD (chronic kidney disease) Admit Date/Time: 10/22/23 23:33 Admit Provider: Wero King
[2023-10-22 23:14] LABS: Lactate (Lactic Acid) 2.8 mmol/L (0.7-2.1)
[2023-10-22] MEDS: ACETAMINOPHEN IV 1,000 MG/100 ML VIAL 400 MG IV (23:16)
[2023-10-22] MEDS: SODIUM CHLORIDE 0.9% 1,000 ML 125 ML IV (23:16)
[2023-10-22 23:31] LABS: Procalcitonin 0.119 ng/mL (<0.5)
[2023-10-22] MEDS: cefTRIAXone 1,000 MG in SODIUM CHLORIDE 0.9% 100 ML 200 MG IV (23:55)
[2023-10-23] VITALS (8 sets, daily range): BP systolic 132–163; BP diastolic 83–98; PULSE 84–101; RESP 16–21; TEMP 36.4–37; O2SAT 93–98; BMI 26.9
[2023-10-23 00:02] LABS: Lactate (Lactic Acid) 2.1 mmol/L (0.7-2.1)
[2023-10-23 00:40] LABS: Reflexed Lactate in 2 Hours Y
[2023-10-23 01:25] LABS: Reflexed Lactate in 2 Hours Y
[2023-10-23] MEDS: SODIUM CHLORIDE 0.9% 1,000 ML 70 ML IV (02:27)
[2023-10-23 06:03] LABS: Add Manual Diff / Slide Review NO; Basophils Absolute Auto 0 /uL (0-100); Basophils Percent Auto 0.5 % (0-2); Eosinophils Absolute Auto 0 /uL (0-450); Eosinophils Percent Auto 0.3 % (2-4); Hematocrit 40.8 % (36-46); Hemoglobin 13.3 g/dL (12.0-16.0); Lymphocytes Absolute Auto 700 /uL (1100-4500); Lymphocytes Percent Auto 9.8 % (25-40); Mean Corpuscular HGB Conc 32.7 % (30-36); Mean Corpuscular Hemoglobin 27.1 PG (26-34); Monocytes Absolute Auto 700 /uL (0-900); Monocytes Percent Auto 8.6 % (3-14); Neutrophils Absolute Auto 6100 /uL (1500-7000); Neutrophils Percent Auto 80.8 % (50-75); Platelet Count 228 X10^3/uL (150-400); Red Blood Cell Count 4.92 X10^6/uL (4.0-5.2); Red Cell Distribution Width 15.1 % (11.6-14.8); White Blood Cell Count 7.6 X10^3/uL (4.5-11.0)
[2023-10-23 06:12] LABS: BUN Creatinine Ratio 17.3 (6-22); Blood Urea Nitrogen 38 mg/dL (7-17); Calcium 8.5 mg/dL (8.4-10.2); Carbon Dioxide 26 mmol/L (22-32); Chloride 103 mmol/L (98-107); Estimated Glomerular Filt Rate 22 mL/min (>60); Glucose 111 mg/dL (80-110); HEMOLYSIS < 15 (0-50); Sodium 138 mmol/L (137-145)
[2023-10-23 06:14] LABS: Lactate (Lactic Acid) 1.6 mmol/L (0.7-2.1)
--- NOTE | 2023-10-23 07:14 | PM.HP.1 ---
History of Present Illness History of Present Illness Date Patient Seen: 10/23/23 Time Patient Seen: 01:30 Chief complaint: unable to keep anything down, confusion, weakness Narrative: 78 years old female with a past medical history of hypertension, chronic kidney disease, congestive heart failure, coronary artery disease, diabetes mellitus and other medical issues presented emergency room for suprapubic pain and per family had increased confusion for the past 24 hours. Denies any chest pain shortness of breath and no reported fevers. Did have nausea with vomiting nonbloody. Has some baseline dementia but she was more confused than usual. At this time she points to her suprapubic region for being. Otherwise, most of the history has been obtained from the chart and caregivers. In the ED labs showed a white count of 9.2 with a hemoglobin of 14.3. BUN is 13 and elevated creatinine of 2.2. Urine analysis shows 3+ leukocyte esterase. EKG shows sinus tachycardia. Lactic acid was 2.8. Patient was given IV fluids but not sepsis protocol due to heart failure history. IV Rocephin was given pending cultures and admitted for further evaluation [facility] Medical History Dementia CAD (coronary artery disease) HFrEF (heart failure with reduced ejection fraction) Fall COVID-19 Osteoarthritis Major depression in partial remission Type 2 diabetes mellitus Plaque psoriasis Myocardial infarction Surgical History History of surgery on right wrist History of bilateral hip replacements History of left knee surgery History of cholecystectomy History of appendectomy Family History Mother Congestive heart failure Brother Congestive heart failure Social History household members: family and children Smoking Status: Never smoker alcohol intake: never substance use type: does not use Meds Home Medications and Allergies Home Medications Medication Instructions Recorded Confirmed Type ascorbic acid (vitamin C) 500 mg 500 mg PO QAM 07/25/21 10/01/23 History chewable tablet zuiyqmaiirve-ixrraozu-narwza tablet 1 tab PO QAM 07/25/21 10/01/23 History cholecalciferol (vitamin D3) 25 25 mcg PO BID #180 tabs 09/22/21 10/01/23 Rx mcg (1,000 unit) tablet clopidogrel 75 mg tablet 75 mg PO QAM #90 tabs 12/04/21 10/01/23 Rx blood sugar diagnostic (Blood #100 ea 02/21/22 10/01/23 Rx Glucose Test strips) carvedilol 25 mg tablet 25 mg PO BID 02/26/22 10/01/23 History atorvastatin 40 mg tablet 40 mg PO BEDTIME #90 tabs 05/07/22 10/01/23 Rx blood-glucose meter,continuous #1 ea 12/04/22 10/01/23 Rx (Dexcom G[employer]) glycine amino acid 2 g PO 03/06/23 10/01/23 History magnesium gycinate 200 mg PO 03/06/23 10/01/23 History famotidine 40 mg tablet 40 mg PO QAM #90 tabs 03/13/23 10/01/23 Rx glipizide 5 mg tablet 2.5 mg (1/2 x 5 mg) PO DAILY #90 08/19/23 10/01/23 Rx tabs sertraline 50 mg tablet 100 mg (2 x 50 mg) PO DAILY #90 08/27/23 10/01/23 Rx tabs pantoprazole 40 mg tablet,delayed 40 mg PO DAILY #90 tabs 09/10/23 10/01/23 Rx release nystatin 100,000 unit/gram topical 1 applic topical BID #15 grams 10/01/23 10/01/23 Rx powder gabapentin 100 mg capsule 200 mg (2 x 100 mg) PO ONCE PM 10/22/23 Rx #180 caps Allergies Allergy/AdvReac Type Severity Reaction Status Date / Time dimenhydrinate AdvReac Intermediate restless Verified 10/01/23 10:11 [From Dramamine] legs diphenhydramine AdvReac Intermediate restless Verified 10/01/23 10:11 [From Benadryl] legs hydrocodone AdvReac Intermediate Nausea Verified 10/01/23 10:11 Review of Systems Review of Systems Narrative: confused Exam Vital Signs (past 8 hours): - 10/22/23 23:30 10/22/23 23:31 10/22/23 23:31 Temperature Pulse Rate 101 H 101 H Respiratory Rate 31 H 30 H Blood Pressure 173/77 H Pulse Oximetry 96 93 Oxygen Delivery Method Room Air Oxygen Flow Rate 10/23/23 00:00 10/23/23 00:01 10/23/23 00:01 Temperature Pulse Rate 100 H 101 H Respiratory Rate 21 18 Blood Pressure 163/95 H Pulse Oximetry 93 93 Oxygen Delivery Method Room Air Room Air Oxygen Flow Rate 10/23/23 00:38 10/23/23 00:56 10/23/23 02:02 Temperature 97.6 F 97.6 F Pulse Rate 100 H 88 Respiratory Rate 16 18 Blood Pressure 143/83 H 143/83 H Pulse Oximetry 93 94 Oxygen Delivery Method Room Air Oxygen Flow Rate 0 0 10/23/23 02:02 Temperature Pulse Rate Respiratory Rate Blood Pressure Pulse Oximetry 98 Oxygen Delivery Method Room Air Oxygen Flow Rate 0 Oxygen Delivery Method Room Air Oxygen Flow Rate 0 Narrative Exam Narrative: confused tenderness in suprapubic region air entry equal bilaterally Objective Labs 10/23/23 05:50 10/23/23 05:50 Labs: Laboratory Results - last 24 hr 10/22/23 10/22/23 10/22/23 20:48 21:38 21:38 WBC 9.2 RBC 5.34 H Hgb 14.3 Hct 44.3 MCV 82.8 MCH 26.9 MCHC 32.4 RDW 15.3 H Plt Count 296 Neut % (Auto) 80.5 H Lymph % (Auto) 9.9 L [place] % (Auto) 8.1 Eos % (Auto) 0.5 L Baso % (Auto) 1.0 Neut # (Auto) 7400 H Lymph # (Auto) 900 L [place] # (Auto) 700 Eos # (Auto) 0 Baso # (Auto) 100 Sodium 135 L Potassium 4.2 Chloride 99 Carbon Dioxide 26 BUN 39 H Creatinine 2.20 H Estimated GFR 22 L BUN/Creatinine Ratio 17.7 Glucose 147 H Lactate 2.8 H Calcium 9.7 Total Bilirubin 1.2 AST 41 H ALT 22 Alkaline Phosphatase 175 H Total Protein 7.8 Albumin 4.3 Globulin 3.5 Albumin/Globulin Ratio 1.2 Lipase 78 Procalcitonin 0.119 Urine Color Yellow Urine Appearance Cloudy Urine pH 6.0 Ur Specific [place] 1.020 Urine Protein 3+ H Urine Glucose (UA) Negative Urine Ketones Trace H Urine Occult Blood 2+ H Urine Nitrate Negative Urine Bilirubin 1+ H Ur Bilirubin Confirm Positive H Urine Urobilinogen 1.0 Ur Leukocyte Esterase 3+ H Urine RBC Cancelled hpf H Urine WBC Cancelled Ur Squamous Epith Cells Ur Transition Epith Cell Ur Renal Epithelial Cell Calcium Oxalate Crystal Uric Acid Crystals Triple Phos Crystals Other Crystals Amorphous Sediment Urine Bacteria Hyaline Casts Granular Casts RBC Casts WBC Casts Other Casts Urine Mucus Urine Trichomonas Urine Yeast Urine Sperm Ur Culture Indicated? Micro UA Comment Vol Urine Centrifuged 10/22/23 10/22/23 10/22/23 21:38 21:38 21:38 WBC RBC Hgb Hct MCV MCH MCHC RDW Plt Count Neut % (Auto) Lymph % (Auto) [place] % (Auto) Eos % (Auto) Baso % (Auto) Neut # (Auto) Lymph # (Auto) [place] # (Auto) Eos # (Auto) Baso # (Auto) Sodium Potassium Chloride Carbon Dioxide BUN Creatinine Estimated GFR BUN/Creatinine Ratio Glucose Lactate Calcium Total Bilirubin AST ALT Alkaline Phosphatase Total Protein Albumin Globulin Albumin/Globulin Ratio Lipase Procalcitonin Urine Color Urine Appearance Urine pH Ur Specific [place] Urine Protein Urine Glucose (UA) Urine Ketones Urine Occult Blood Urine Nitrate Urine Bilirubin Ur Bilirubin Confirm Urine Urobilinogen Ur Leukocyte Esterase Urine RBC Urine WBC 10-30/hpf H Ur Squamous Epith Cells Cancelled 5-10 /hpf H Ur Transition Epith Cell Cancelled Ur Renal Epithelial Cell Cancelled Calcium Oxalate Crystal Cancelled Uric Acid Crystals Cancelled Triple Phos Crystals Cancelled Other Crystals Cancelled Amorphous Sediment Cancelled Urine Bacteria Cancelled Many (>30) H Hyaline Casts Cancelled Granular Casts Cancelled RBC Casts Cancelled WBC Casts Cancelled Other Casts Cancelled Urine Mucus Cancelled Urine Trichomonas Cancelled Urine Yeast Cancelled Urine Sperm Cancelled Ur Culture Indicated? Cancelled Micro UA Comment Vol Urine Centrifuged 10/22/23 10/22/23 10/22/23 21:38 21:38 23:30 WBC RBC Hgb Hct MCV MCH MCHC RDW Plt Count Neut % (Auto) Lymph % (Auto) [place] % (Auto) Eos % (Auto) Baso % (Auto) Neut # (Auto) Lymph # (Auto) [place] # (Auto) Eos # (Auto) Baso # (Auto) Sodium Potassium Chloride Carbon Dioxide BUN Creatinine Estimated GFR BUN/Creatinine Ratio Glucose Lactate 2.1 Calcium Total Bilirubin AST ALT Alkaline Phosphatase Total Protein Albumin Globulin Albumin/Globulin Ratio Lipase Procalcitonin Urine Color Urine Appearance Urine pH Ur Specific [place] Urine Protein Urine Glucose (UA) Urine Ketones Urine Occult Blood Urine Nitrate Urine Bilirubin Ur Bilirubin Confirm Urine Urobilinogen Ur Leukocyte Esterase Urine RBC Urine WBC Ur Squamous Epith Cells Ur Transition Epith Cell Ur Renal Epithelial Cell Calcium Oxalate Crystal Uric Acid Crystals Triple Phos Crystals Other Crystals Amorphous Sediment Urine Bacteria Hyaline Casts Granular Casts RBC Casts WBC Casts Other Casts Urine Mucus Urine Trichomonas Urine Yeast Urine Sperm Ur Culture Indicated? Specimen cultured Micro UA Comment Cancelled Vol Urine Centrifuged Cancelled 10ml (spun) 10/23/23 05:50 WBC 7.6 RBC 4.92 Hgb 13.3 Hct 40.8 MCV 83.0 MCH 27.1 MCHC 32.7 RDW 15.1 H Plt Count 228 Neut % (Auto) 80.8 H Lymph % (Auto) 9.8 L [place] % (Auto) 8.6 Eos % (Auto) 0.3 L Baso % (Auto) 0.5 Neut # (Auto) 6100 Lymph # (Auto) 700 L [place] # (Auto) 700 Eos # (Auto) 0 Baso # (Auto) 0 Sodium 138 Potassium 4.0 Chloride 103 Carbon Dioxide 26 BUN 38 H Creatinine 2.20 H Estimated GFR 22 L BUN/Creatinine Ratio 17.3 Glucose 111 H Lactate 1.6 Calcium 8.5 Total Bilirubin AST ALT Alkaline Phosphatase Total Protein Albumin Globulin Albumin/Globulin Ratio Lipase Procalcitonin Urine Color Urine Appearance Urine pH Ur Specific [place] Urine Protein Urine Glucose (UA) Urine Ketones Urine Occult Blood Urine Nitrate Urine Bilirubin Ur Bilirubin Confirm Urine Urobilinogen Ur Leukocyte Esterase Urine RBC Urine WBC Ur Squamous Epith Cells Ur Transition Epith Cell Ur Renal Epithelial Cell Calcium Oxalate Crystal Uric Acid Crystals Triple Phos Crystals Other Crystals Amorphous Sediment Urine Bacteria Hyaline Casts Granular Casts RBC Casts WBC Casts Other Casts Urine Mucus Urine Trichomonas Urine Yeast Urine Sperm Ur Culture Indicated? Micro UA Comment Vol Urine Centrifuged Assessment & Plan Assessment & Plan narrative: 78 years old female with a past medical history of hypertension, chronic kidney disease, congestive heart failure, coronary artery disease, diabetes mellitus and other medical issues presented emergency room for suprapubic pain and per family had increased confusion for the past 24 hours. Denies any chest pain shortness of breath and no reported fevers. Did have nausea with vomiting nonbloody. Has some baseline dementia but she was more confused than usual. At this time she points to her suprapubic region for being. Otherwise, most of the history has been obtained from the chart and caregivers. In the ED labs showed a white count of 9.2 with a hemoglobin of 14.3. BUN is 13 and elevated creatinine of 2.2. Urine analysis shows 3+ leukocyte esterase. EKG shows sinus tachycardia. Lactic acid was 2.8. Patient was given IV fluids but not sepsis protocol due to heart failure history. IV Rocephin was given pending cultures and admitted for further evaluation 1. Urinary tract infection in a patient with altered mental status and lactic acidosis. Continue IV Rocephin for now while trending the lactic acid levels closely. Renal function appears to be at baseline with no evidence of obstruction for now. Monitor 2. Coronary artery disease history. Resume the home Coreg/Lipitor/Plavix based on tolerance 3. Chronic kidney disease appears to be at baseline and monitor 4 depression resume the home Zoloft 5. GERD resume home Protonix 6 diabetes mellitus. Monitor blood sugar ACHS with insulin sliding scale. Hold the home glipizide due to poor p.o. intake 7. Fungal infection under the skin fold. Initiate nystatin cream follow wound care 8. Nausea with vomiting acute unclear etiology but at this time denies symptoms. Monitor closely before initiating further workup. Treatment is supportive. Unclear the last bowel movement Patient will be admitted under observation status Location of the patient is [facility]. Patient was evaluated with the help of video communication device Time-Based Coding :: [TOTAL MINUTES] spent with patient and on the chart (including review of chart, obtaining history, exam, reviewing outside data, placing orders, documenting exam and treatment plan, and counseling patient) on [DATE].
[2023-10-23] MEDS: NYSTATIN CREAM 30 GM 1 APPLIC TOP ×2 (10:13→21:37)
[2023-10-23] MEDS: ONDANSETRON 4 MG ODT PO (10:27)
[2023-10-23 12:42] LABS: Adenovirus F 40/41 Not Detected (Not Detect); Astrovirus Not Detected (Not Detect); Campylobacter Not Detected (Not Detect); Clostridium difficile toxin AB Not Detected (Not Detect); Cryptosporidium Not Detected (Not Detect); Cyclospora cayetanensis Not Detected (Not Detect); Entamoeba histolytica Not Detected (Not Detect); Enteroaggregative E.coli Not Detected (Not Detect); Enteropathogenic E.coli Not Detected (Not Detect); Enterotoxigenic E.coli It/st Not Detected (Not Detect); Giardia lamblia Not Detected (Not Detect); Norovirus GI/GII Not Detected (Not Detect); Plesiomonsa shigelloides Not Detected (Not Detect); Rotavirus A Not Detected (Not Detect); Salmonella Not Detected (Not Detect); Sapovirus Not Detected (Not Detect); Shiga-like toxin-prod E.coli Not Detected (Not Detect); Shigella/Enteroinvasive E.coli Not Detected (Not Detect); Vibrio Not Detected (Not Detect); Vibrio cholerae Not Detected (Not Detect); Yersinia enterocolitica Not Detected (Not Detect)
--- NOTE | 2023-10-23 13:55 | P.HP_ITS ---
History of Present Illness History of Present Illness Date Patient Seen: 10/23/23 Time Patient Seen: 11:00 Chief complaint: unable to keep anything down, confusion, weakness Narrative: Per overnight provider, 78 years old female with a past medical history of hypertension, chronic kidney disease, congestive heart failure, coronary artery disease, diabetes mellitus and other medical issues presented emergency room for suprapubic pain and per family had increased confusion for the past 24 hours. Denies any chest pain shortness of breath and no reported fevers. Did have nausea with vomiting nonbloody. Has some baseline dementia but she was more confused than usual. At this time she points to her suprapubic region for being. Otherwise, most of the history has been obtained from the chart and caregivers. In the ED labs showed a white count of 9.2 with a hemoglobin of 14.3. BUN is 13 and elevated creatinine of 2.2. Urine analysis shows 3+ leukocyte esterase. EKG shows sinus tachycardia. Lactic acid was 2.8. Patient was given IV fluids but not sepsis protocol due to heart failure history. IV Rocephin was given pending cultures and admitted for further evaluation Updates: patient is improving today, she is no longer nauseous but has diarrhea. Denies abdominal pain. GI panel negative for infectious etiologies. [facility] Medical History Dementia CAD (coronary artery disease) HFrEF (heart failure with reduced ejection fraction) Fall COVID-19 Osteoarthritis Major depression in partial remission Type 2 diabetes mellitus Plaque psoriasis Myocardial infarction Surgical History History of surgery on right wrist History of bilateral hip replacements History of left knee surgery History of cholecystectomy History of appendectomy Family History Mother Congestive heart failure Brother Congestive heart failure Social History household members: family and children Smoking Status: Never smoker alcohol intake: never substance use type: does not use Meds Home Medications and Allergies Home Medications Medication Instructions Recorded Confirmed Type ascorbic acid (vitamin C) 500 mg 500 mg PO QAM 07/25/21 10/23/23 History chewable tablet rlhefnpdsdmk-zqpxkrfi-ojkiay tablet 1 tab PO QAM 07/25/21 10/23/23 History cholecalciferol (vitamin D3) 25 25 mcg PO BID #180 tabs 09/22/21 10/23/23 Rx mcg (1,000 unit) tablet clopidogrel 75 mg tablet 75 mg PO QAM #90 tabs 12/04/21 10/23/23 Rx blood sugar diagnostic (Blood #100 ea 02/21/22 10/23/23 Rx Glucose Test strips) carvedilol 25 mg tablet 25 mg PO BID 02/26/22 10/23/23 History atorvastatin 40 mg tablet 40 mg PO BEDTIME #90 tabs 05/07/22 10/23/23 Rx blood-glucose meter,continuous #1 ea 12/04/22 10/23/23 Rx ([employer]) glycine amino acid 2 g PO 03/06/23 10/01/23 History glipizide 5 mg tablet 2.5 mg (1/2 x 5 mg) PO DAILY #90 08/19/23 10/01/23 Rx tabs sertraline 50 mg tablet 100 mg (2 x 50 mg) PO DAILY #90 08/27/23 10/23/23 Rx tabs pantoprazole 40 mg tablet,delayed 40 mg PO DAILY #90 tabs 09/10/23 10/23/23 Rx release nystatin 100,000 unit/gram topical 1 applic topical BID #15 grams 10/01/23 10/23/23 Rx powder gabapentin 100 mg capsule 200 mg (2 x 100 mg) PO ONCE PM 10/22/23 Rx #180 caps famotidine 40 mg tablet 40 mg PO QPM 10/23/23 10/23/23 History isosorbide mononitrate 60 mg 60 mg PO DAILY 10/23/23 10/23/23 History tablet,extended release 24 hr torsemide 10 mg tablet mg PO 10/23/23 History Allergies Allergy/AdvReac Type Severity Reaction Status Date / Time dimenhydrinate AdvReac Intermediate restless Verified 10/01/23 10:11 [From Dramamine] legs diphenhydramine AdvReac Intermediate restless Verified 10/01/23 10:11 [From Benadryl] legs hydrocodone AdvReac Intermediate Nausea Verified 10/01/23 10:11 Review of Systems Review of Systems Narrative: All other systems reviewed with the patient and are negative unless otherwise stated. Exam Vital Signs (past 8 hours): - 10/23/23 08:00 Pulse Rate 94 H Respiratory Rate 18 Blood Pressure 143/98 H Pulse Oximetry 94 Oxygen Flow Rate 0 Oxygen Delivery Method Room Air Oxygen Flow Rate 0 Narrative Exam Narrative: General:? Patient is well developed and well nourished, in no distress at this time. HEENT:? Normocephalic, atraumatic, extraocular muscles intact, oral pharynx is clear and mucous membranes are moist. Neck: supple and symmetric, trachea is midline Chest:? Normal AP diameter and contour without kyphoscoliosis, no tachypnea, equal chest rise bilaterally. Lungs:? CTA b/l no wheezing rhonchi or rales. Cardio:?RRR no m/r/g. Abdomen: S NT ND. Extremities: No edema or joint effusions. No cyanosis or clubbing. Skin:? Pale,? Warm to touch,dry and intact without rashes, ulcerations or petechiae.? Neuro:? Alert,? sensation to touch intact in all extremities, no gross deficits noted of cranial nerves. Psych:? Patient has a well-kept appearance, appropriate affect, mental status attitude thought context and judgment are appropriate for age. Objective Labs 10/23/23 05:50 10/23/23 05:50 Labs: Laboratory Results - last 24 hr 10/22/23 10/22/23 10/22/23 20:48 21:38 21:38 WBC 9.2 RBC 5.34 H Hgb 14.3 Hct 44.3 MCV 82.8 MCH 26.9 MCHC 32.4 RDW 15.3 H Plt Count 296 Neut % (Auto) 80.5 H Lymph % (Auto) 9.9 L [place] % (Auto) 8.1 Eos % (Auto) 0.5 L Baso % (Auto) 1.0 Neut # (Auto) 7400 H Lymph # (Auto) 900 L [place] # (Auto) 700 Eos # (Auto) 0 Baso # (Auto) 100 Sodium 135 L Potassium 4.2 Chloride 99 Carbon Dioxide 26 BUN 39 H Creatinine 2.20 H Estimated GFR 22 L BUN/Creatinine Ratio 17.7 Glucose 147 H Lactate 2.8 H Calcium 9.7 Total Bilirubin 1.2 AST 41 H ALT 22 Alkaline Phosphatase 175 H Total Protein 7.8 Albumin 4.3 Globulin 3.5 Albumin/Globulin Ratio 1.2 Lipase 78 Procalcitonin 0.119 Urine Color Yellow Urine Appearance Cloudy Urine pH 6.0 Ur Specific [place] 1.020 Urine Protein 3+ H Urine Glucose (UA) Negative Urine Ketones Trace H Urine Occult Blood 2+ H Urine Nitrate Negative Urine Bilirubin 1+ H Ur Bilirubin Confirm Positive H Urine Urobilinogen 1.0 Ur Leukocyte Esterase 3+ H Urine RBC Cancelled 5-10/hpf H Urine WBC Cancelled Ur Squamous Epith Cells Ur Transition Epith Cell Ur Renal Epithelial Cell Calcium Oxalate Crystal Uric Acid Crystals Triple Phos Crystals Other Crystals Amorphous Sediment Urine Bacteria Hyaline Casts Granular Casts RBC Casts WBC Casts Other Casts Urine Mucus Urine Trichomonas Urine Yeast Urine Sperm Ur Culture Indicated? Micro UA Comment Vol Urine Centrifuged Stl C. cayetanensis PCR Stool Rotavirus (PCR) Stool Adenovirus (PCR) Stool Astrovirus (PCR) Stool Cryptosporidium PCR Stl E.coli Shiga Tox PCR St Sh/Enteroin Ecoli PCR Stl Enterotoxigenic E PCR Stool EPEC (PCR) Stl E. histolytica PCR Stool Giardia Lamblia PCR Stool Sapovirus (PCR) Stl P. shigelloides PCR St Y.enterocolitica PCR Stool Vibrio (PCR) Stl Vibrio cholerae PCR Stl Enteroaggr Ecoli PCR Stl Norovirus GI/GII PCR Campylobacter (PCR) C. difficile Tox (PCR) Salmonella (PCR) 10/22/23 10/22/23 10/22/23 21:38 21:38 21:38 WBC RBC Hgb Hct MCV MCH MCHC RDW Plt Count Neut % (Auto) Lymph % (Auto) [place] % (Auto) Eos % (Auto) Baso % (Auto) Neut # (Auto) Lymph # (Auto) [place] # (Auto) Eos # (Auto) Baso # (Auto) Sodium Potassium Chloride Carbon Dioxide BUN Creatinine Estimated GFR BUN/Creatinine Ratio Glucose Lactate Calcium Total Bilirubin AST ALT Alkaline Phosphatase Total Protein Albumin Globulin Albumin/Globulin Ratio Lipase Procalcitonin Urine Color Urine Appearance Urine pH Ur Specific [place] Urine Protein Urine Glucose (UA) Urine Ketones Urine Occult Blood Urine Nitrate Urine Bilirubin Ur Bilirubin Confirm Urine Urobilinogen Ur Leukocyte Esterase Urine RBC Urine WBC 10-30/hpf H Ur Squamous Epith Cells Cancelled 5-10 /hpf H Ur Transition Epith Cell Cancelled Ur Renal Epithelial Cell Cancelled Calcium Oxalate Crystal Cancelled Uric Acid Crystals Cancelled Triple Phos Crystals Cancelled Other Crystals Cancelled Amorphous Sediment Cancelled Urine Bacteria Cancelled Many (>30) H Hyaline Casts Cancelled Granular Casts Cancelled RBC Casts Cancelled WBC Casts Cancelled Other Casts Cancelled Urine Mucus Cancelled Urine Trichomonas Cancelled Urine Yeast Cancelled Urine Sperm Cancelled Ur Culture Indicated? Cancelled Micro UA Comment Vol Urine Centrifuged Stl C. cayetanensis PCR Stool Rotavirus (PCR) Stool Adenovirus (PCR) Stool Astrovirus (PCR) Stool Cryptosporidium PCR Stl E.coli Shiga Tox PCR St Sh/Enteroin Ecoli PCR Stl Enterotoxigenic E PCR Stool EPEC (PCR) Stl E. histolytica PCR Stool Giardia [place] PCR Stool Sapovirus (PCR) Stl P. shigelloides PCR St Y.enterocolitica PCR Stool Vibrio (PCR) Stl Vibrio cholerae PCR Stl Enteroaggr Ecoli PCR Stl Norovirus GI/GII PCR Campylobacter (PCR) C. difficile Tox (PCR) Salmonella (PCR) 10/22/23 10/22/23 10/22/23 21:38 21:38 23:30 WBC RBC Hgb Hct MCV MCH MCHC RDW Plt Count Neut % (Auto) Lymph % (Auto) [place] % (Auto) Eos % (Auto) Baso % (Auto) Neut # (Auto) Lymph # (Auto) [place] # (Auto) Eos # (Auto) Baso # (Auto) Sodium Potassium Chloride Carbon Dioxide BUN Creatinine Estimated GFR BUN/Creatinine Ratio Glucose Lactate 2.1 Calcium Total Bilirubin AST ALT Alkaline Phosphatase Total Protein Albumin Globulin Albumin/Globulin Ratio Lipase Procalcitonin Urine Color Urine Appearance Urine pH Ur Specific [place] Urine Protein Urine Glucose (UA) Urine Ketones Urine Occult Blood Urine Nitrate Urine Bilirubin Ur Bilirubin Confirm Urine Urobilinogen Ur Leukocyte Esterase Urine RBC Urine WBC Ur Squamous Epith Cells Ur Transition Epith Cell Ur Renal Epithelial Cell Calcium Oxalate Crystal Uric Acid Crystals Triple Phos Crystals Other Crystals Amorphous Sediment Urine Bacteria Hyaline Casts Granular Casts RBC Casts WBC Casts Other Casts Urine Mucus Urine Trichomonas Urine Yeast Urine Sperm Ur Culture Indicated? Specimen cultured Micro UA Comment Cancelled Vol Urine Centrifuged Cancelled 10ml (spun) Stl C. cayetanensis PCR Stool Rotavirus (PCR) Stool Adenovirus (PCR) Stool Astrovirus (PCR) Stool Cryptosporidium PCR Stl E.coli Shiga Tox PCR St Sh/Enteroin Ecoli PCR Stl Enterotoxigenic E PCR Stool EPEC (PCR) Stl E. histolytica PCR Stool Giardia Lamblia PCR Stool Sapovirus (PCR) Stl P. shigelloides PCR St Y.enterocolitica PCR Stool Vibrio (PCR) Stl Vibrio cholerae PCR Stl Enteroaggr Ecoli PCR Stl Norovirus GI/GII PCR Campylobacter (PCR) C. difficile Tox (PCR) Salmonella (PCR) 10/23/23 10/23/23 05:50 10:46 WBC 7.6 RBC 4.92 Hgb 13.3 Hct 40.8 MCV 83.0 MCH 27.1 MCHC 32.7 RDW 15.1 H Plt Count 228 Neut % (Auto) 80.8 H Lymph % (Auto) 9.8 L [place] % (Auto) 8.6 Eos % (Auto) 0.3 L Baso % (Auto) 0.5 Neut # (Auto) 6100 Lymph # (Auto) 700 L [place] # (Auto) 700 Eos # (Auto) 0 Baso # (Auto) 0 Sodium 138 Potassium 4.0 Chloride 103 Carbon Dioxide 26 BUN 38 H Creatinine 2.20 H Estimated GFR 22 L BUN/Creatinine Ratio 17.3 Glucose 111 H Lactate 1.6 Calcium 8.5 Total Bilirubin AST ALT Alkaline Phosphatase Total Protein Albumin Globulin Albumin/Globulin Ratio Lipase Procalcitonin Urine Color Urine Appearance Urine pH Ur Specific [place] Urine Protein Urine Glucose (UA) Urine Ketones Urine Occult Blood Urine Nitrate Urine Bilirubin Ur Bilirubin Confirm Urine Urobilinogen Ur Leukocyte Esterase Urine RBC Urine WBC Ur Squamous Epith Cells Ur Transition Epith Cell Ur Renal Epithelial Cell Calcium Oxalate Crystal Uric Acid Crystals Triple Phos Crystals Other Crystals Amorphous Sediment Urine Bacteria Hyaline Casts Granular Casts RBC Casts WBC Casts Other Casts Urine Mucus Urine Trichomonas Urine Yeast Urine Sperm Ur Culture Indicated? Micro UA Comment Vol Urine Centrifuged Stl C. cayetanensis PCR Not detected Stool Rotavirus (PCR) Not detected Stool Adenovirus (PCR) Not detected Stool Astrovirus (PCR) Not detected Stool Cryptosporidium PCR Not detected Stl E.coli Shiga Tox PCR Not detected St Sh/Enteroin Ecoli PCR Not detected Stl Enterotoxigenic E PCR Not detected Stool EPEC (PCR) Not detected Stl E. histolytica PCR Not detected Stool Giardia Lamblia PCR Not detected Stool Sapovirus (PCR) Not detected Stl P. shigelloides PCR Not detected St Y.enterocolitica PCR Not detected Stool Vibrio (PCR) Not detected Stl Vibrio cholerae PCR Not detected Stl Enteroaggr Ecoli PCR Not detected Stl Norovirus GI/GII PCR Not detected Campylobacter (PCR) Not detected C. difficile Tox (PCR) Not detected Salmonella (PCR) Not detected Assessment & Plan Assessment & Plan narrative: 78 years old female with a past medical history of CHFrEF, CKD stage 4, DM, HTN, CAD with significant LAD disease not amenable to stenting admitted with sepsis due to acute cystitis. 1. Sepsis secondary to acute cystitis with acute metabolic encephalopathy, elevated Cr, and hyperbilirubinemia - SOFA score >3 on admission - continue ceftriaxone 1g q24 hours, stop IV fluids with PMH of CHFrEF - lactate now 1.6 - follow up blood and urine cultures 2. Coronary artery disease history. Continue her home Coreg/Lipitor/Plavix 3. Chronic kidney disease appears to be at baseline and monitor - creatinine 2.2 today, exactly at prior baseline reported by nephrology documentation that was reviewed. 4 depression - continue Zoloft 5. GERD - continue resume home Protonix 6 diabetes mellitus. Monitor blood sugar ACHS with insulin sliding scale. Hold the home glipizide due to poor p.o. intake 7. Fungal infection under the skin fold. Initiate nystatin cream follow wound care 8. Diarrhea - - GI Panel negative. Possibly secondary to antibiotics, can give loperamide as needed. Code: Limited code in that no intubation but okay with chest compressions, surrogate is patient's daughter. Will further discuss over the course of admission. DVT: Lovenox daily, renal dosing I have utilized all available immediate resources to obtain, update, or review the patient's current medications. Dispo: patient admitted under inpatient status. Unclear if will be able to discharge home or possible SNF, will have PT/OT evaluations. Additional history obtained via discussions with the overnight provider, bedside staff, and case management. These discussions contributed to the creation of the above assessment and plan. I have reviewed patient's presenting documentation, labs, and imaging personally. Time-Based Coding :: [TOTAL MINUTES] spent with patient and on the chart (including review of chart, obtaining history, exam, reviewing outside data, placing orders, documenting exam and treatment plan, and counseling patient) on [DATE].
--- NOTE | 2023-10-23 14:05 | CM.DANOTE ---
Addendum entered by CRISTI Wilson 10/24/23 13:46: ADD: Patient is [place] and enrolled in an [facility] [employer] [place]; patient reports she receives no benefits through her [place] but can apply for benefits as needed through [facility] [employer]. Original Note: Initial DCP Assessment Note Pt is a 78 yo female, resident of [place], arrives with confusion and weakness, admitted for management of sepsis sec to UTI. PCP: Magalys Deluca Payer: [facility]/[employer] Reviewed chart, met with patient to introduce self and role. Patient reports that she lives with supportive daughter, MIKEY, grand daughter and cousin in [place]. Her family works during the day and available to assist in the evening and on weekends. Patient does not drive. Patient a bit groggy this visit but able to report PLOF as assist with higher ADLs. Patient denies hx of HH or SNF; anticipates she will return home with supportive family upon discharge. No barriers identified at this time to patient's safe discharge home w/family to assist; close outpatient f/u recommended. CM team will plan to follow clinical course closely in case any DC needs or concerns arise. CRISTI Henriquez Discharge Planning/Care Management CM Discharge Assessment Start: 10/23/23 14:01 Freq: Status: Active Protocol: Document 10/23/23 14:01 KRYSTAL (Rec: 10/23/23 14:05 KRYSTAL [id number]) Discharge Planning Assessment Assigned Nib Inspector CRISTI Gardner DPOA/Assigned Designee Name josé Robles Contact Information [phone] Advance Directives? No Advance Directives on File Yes History Provided By Patient,Medical Record Household Members family,children Type of transporation used prior to Relies on Others admit Independent with ADL's No: Receives assist with higher ADLs Needs Assistance With Bathing,Meal Prep,Home Chores / Shopping Comment Bathing assist as needed according to patient Comment Patient uses devices: Cane, FWW or Wheel chair as needed Barriers to Discharge No Comment Patient resides with supportive family Discharge Plan Home Transportation Arrangement Daughter POV
--- NOTE | 2023-10-23 15:23 | OT.IP.EVAL ---
Past Medical History (Last Reviewed 10/23/23 @ 13:57 by Guero Noble DO) CAD (coronary artery disease) COVID-19 Dementia Fall HFrEF (heart failure with reduced ejection fraction) Major depression in partial remission Myocardial infarction Osteoarthritis Plaque psoriasis Type 2 diabetes mellitus Surgical History (Last Reviewed 10/23/23 @ 13:57 by Guero Noble DO) History of appendectomy History of bilateral hip replacements History of cholecystectomy History of left knee surgery History of surgery on right wrist Occupational Therapy Inpatient Evaluation/Re-Eval M1 PT/OT-IP Prior Functional Status Start: 10/23/23 15:42 Freq: NEEDED Status: Active Protocol: Document 10/23/23 15:43 [facility] (Rec: 10/23/23 16:03 [facility] [id number]) Medical Review Prior Functional Status Mobility and Gait Pt states uses a 4ww to walk with. Activities of Daily Living and IADL's Pt states able to do all ADL needs and has assist for IADL needs. Pt states she does her bills and that her daughter assists with medication set-up . Pt states she showers on her own but the medical chart states she has supervision. Social History Household Members family,children Living Arrangements House Number of Floors (Floors) Two Floors Number of Stairs To Enter/Railing? One tall step with no rails and that her son in law assists her into and out of the house. Pt also has a tall bed with a step with handle to help get into the bed. Per medical chart states pt has dementia and will have to reconfirm prior level of function with her daughter. Home Environment Standard Height Toilet,Tub/ Shower Home Equipment Four Wheel Walker,Manual Wheelchair,Shower Seat with Backrest,Hand Held Shower,Lift Recliner M2 OT-IP Current Condition Start: 10/23/23 15:42 Freq: Status: Active Protocol: Document 10/23/23 15:43 [facility] (Rec: 10/23/23 16:03 [facility] [id number]) Occupational Therapy Current Condition Current Condition Evaluation Date 10/23/23 Treatment Diagnosis Sepsis due to acute cystitis with acute metabolic encephalopathy Diagnosis Onset Date 10/22/23 M3 OT- IP Subjective and Pain Start: 10/23/23 15:42 Freq: Status: Active Protocol: Document 10/23/23 15:43 [facility] (Rec: 10/23/23 16:03 [facility] [id number]) OT- Subjective Occupational Therapy Visit Type Type Initial Evaluation Visit Start Time 14:40 Visit Stop Time 15:23 Occupational Therapy Visit Comments Patient Comments Pt on the BSC when OT came in. Patient/Caregiver Goals To go home, pt very adamant of not going to skilled rehab. OT Pain Assessment Pain When Pain Assessed At Rest Pain Present Pain Present Pain Reported Location Buttock Description Burning M4 OT- IP ADL's Start: 10/23/23 15:42 Freq: Status: Active Protocol: Document 10/23/23 15:43 [facility] (Rec: 10/23/23 16:03 [facility] [id number]) OT [id number] Comments OT Self-Feeding Comments Not at meal time. OT ADL-Grooming Comments OT Grooming Comments Not performed. OT ADL-Oral Care Comments Oral Care Comments Not performed. OT ADL-Dressing General Eval Lower Body Dressing Ability Maximum Assistance Areas Needing Assistance Underpants/Brief,Socks Comments OT Dressing Comments Pt states does not wear socks and assist for socks and to help pull up the brief in the back. OT ADL-Toileting General Evaluation Toileting Ability Maximum Assistance Areas Needing Assistance Manage Clothing,Perform Perineal Hygiene Comments OT Toileting Comments Assist for hygiene for completeness and having diarrhea and also to assist to pull up the brief in the back and place barrier cream on her, nurssin notified. . OT ADL-Bathing Comments OT Bathing Comments Pt will benefit from assist at home. M5 OT- IP IADL's Start: 10/23/23 15:42 Freq: Status: Active Protocol: Document 10/23/23 15:43 [facility] (Rec: 10/23/23 16:03 [facility] [id number]) OT-Instrumental Activities of Daily Living Home Safety Awareness Ability to Problem Solve Emergency Able to Problem Solve Situations Home Safety Comments Pt able to answer all home safety questions with good accuracy. Medication Management Medication Management Caregiver Provides Supervision Money Management Money Management Comments Pt states does her own. Meal Preparation Meal Preparation Caregiver Provides Assist Paper Bag Machine Operator Paper Bag Machine Operator Caregiver Provides Assist M6 OT- IP Functional Cognition Start: 10/23/23 15:42 Freq: Status: Active Protocol: Document 10/23/23 15:43 [facility] (Rec: 10/23/23 16:03 [facility] [id number]) Cognitive Factors Limiting Selfcare Function Cognitive Ability Level of Alertness Alert,Confusional State Patient Orientation Name Attention Span Ability Capable of Focused Attention, Capable of Sustained Attention Ability to Follow Commands Able to Follow One Step Commands with Increased Time, Able to Follow One Step Commands with Repetition Memory Description Short 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 Cognitive Comments Cognitive Assessment Comments Pt able to follow commands. Pt needing concrete cues to follow. Pt kept stating that she does not want to go back to long term, when asking pt later able to clarify that she wants to go home and not to skilled rehab. OT- Vision and Hearing OT- Vision Assessment Visual Acuity Glasses For Reading Visual Attentiveness WFL Occular Pursuits WFL Vision Assessment Comments Pt able to read the clock accurately. M7 OT- IP Mobility and Balance Start: 10/23/23 15:42 Freq: Status: Active Protocol: Document 10/23/23 15:43 [facility] (Rec: 10/23/23 16:03 [facility] [id number]) OT- Bed Mobility Assessment Sit to Supine Sit to Supine Assist Standby Assistance OT-Transfer Assessment Sit to and From Stand Sit to and from Stand Standby Assistance,Contact Guard Assistance Transfers Transfer Ability Standby Assistance,Contact Guard Assistance Technique Transfer Destination Bed,Bedside Commode Transfer Technique Stand Step Pivot Devices Transfer Assistive Devices None,Front Wheeled Walker Comments Mobility Comments Pt able to stand with SBA from the BSC to FWW and able to transfer back to bed with CGA/ SBA. Pt getting tired while standing when needing therapist assist to wipe for completeness- due to her diarrhea. OT- Balance Assessment Sitting Balance and Reactions Static Sitting Balance Ability Good Dynamic Sitting Balance Ability Fair Standing Balance and Reactions Static Standing Balance Ability Fair Dynamic Standing Balance Ability Fair M8 OT- IP Objective Assessments Start: 10/23/23 15:42 Freq: Status: Active Protocol: Document 10/23/23 15:43 [facility] (Rec: 10/23/23 16:03 [facility] [id number]) OT Gross Range of Motion Upper Extremity Range of Motion Assessment Within Functional Limits OT Strength Comments Strength Comments BUE 4/5 OT- Coordination Assessment Upper Extremity Finger to Nose Test Within Functional Limits M9 OT- IP Assessment and Plan Start: 10/23/23 15:42 Freq: Status: Active Protocol: Document 10/23/23 15:43 [facility] (Rec: 10/23/23 16:03 [facility] [id number]) OT Summary Assessment and Plan Potential Rehabilitation Potential Good Analytic Complexity at Evaluation Moderate Summary OT Impairments Strength,Balance,Functional Cognition,Functional Mobility, Grooming,Dressing,Toileting, Bathing,Toilet Transfers, Shower Transfers,Activity Tolerance Progress Towards Goals Slow Progress due to Medical Issues,Slow Progress due to Activity Tolerance,Slow Progress due to Cognition Assessment Summary Pt MOD complexity and main barriers are a steps, decreased activity tolerance, and therefore would benefit from increased assist at home especially for toileting and bathing needs. Pt woudl benefit from 24/7 available assist and home health including a bath aid at this time. Goals Grooming Goal Independent Dressing Goal Independent Toileting Goal Independent Bathing Goal Standby Assistance Toilet Transfer Goal Independent Shower Transfer Goal Standby Assistance Days to Meet Goals 7 Frequency of Treatment Frequency Of Treatment Once a Day Treatment Plan OT Treatment Plan ADL Training,Functional Cognition Training,Functional Mobility,Patient/Family Education,Discharge Planning Other Treatment Recommendations and Next shower, SLUMS Treatment Focus Discharge Recommendations OT Discharge Recommendations Home with 24/7 Assist Available,Home Health Transportation Needs at Discharge Private Vehicle
[2023-10-23] MEDS: ACETAMINOPHEN 325 MG TABLET 650 MG PO (18:38)
[2023-10-23] MEDS: ATORVASTATIN 20 MG TABLET 40 MG PO (21:34)
[2023-10-23] MEDS: FAMOTIDINE 20 MG TABLET PO (21:34)
[2023-10-23] MEDS: carvediloL 12.5 MG TABLET 25 MG PO (21:34)
[2023-10-23] MEDS: INSULIN LISPRO 100 UNIT/ML 3ML VIAL SUBCUT (21:36)
[2023-10-23] MEDS: cefTRIAXone 1,000 MG in SODIUM CHLORIDE 0.9% 100 ML 200 MG IV (23:55)
[2023-10-24 04:53] VITALS: BP 115/80; PULSE 74; RESP 17; TEMP 37; O2SAT 94
[2023-10-24] MEDS: PANTOPRAZOLE DR 40 MG TABLET PO (05:13)
[2023-10-24 06:42] LABS: Add Manual Diff / Slide Review NO; Basophils Absolute Auto 0 /uL (0-100); Basophils Percent Auto 0.8 % (0-2); Eosinophils Absolute Auto 100 /uL (0-450); Eosinophils Percent Auto 2.8 % (2-4); Hematocrit 39.3 % (36-46); Hemoglobin 12.6 g/dL (12.0-16.0); Lymphocytes Absolute Auto 600 /uL (1100-4500); Lymphocytes Percent Auto 11.8 % (25-40); Mean Corpuscular Hemoglobin 26.7 PG (26-34); Mean Corpuscular Volume 83.4 fL (80-100); Monocytes Absolute Auto 500 /uL (0-900); Monocytes Percent Auto 9.4 % (3-14); Neutrophils Absolute Auto 4000 /uL (1500-7000); Neutrophils Percent Auto 75.2 % (50-75); Platelet Count 200 X10^3/uL (150-400); Red Blood Cell Count 4.72 X10^6/uL (4.0-5.2); Red Cell Distribution Width 15.5 % (11.6-14.8); White Blood Cell Count 5.3 X10^3/uL (4.5-11.0)
[2023-10-24 06:48] LABS: BUN Creatinine Ratio 18.3 (6-22); Blood Urea Nitrogen 40 mg/dL (7-17); Calcium 8.3 mg/dL (8.4-10.2); Carbon Dioxide 26 mmol/L (22-32); Chloride 104 mmol/L (98-107); Estimated Glomerular Filt Rate 23 mL/min (>60); Glucose 88 mg/dL (80-110); HEMOLYSIS < 15 (0-50); Potassium 3.3 mmol/L (3.4-5.1); Sodium 138 mmol/L (137-145)
[2023-10-24 08:00] VITALS: BP 151/94; PULSE 81; RESP 16; TEMP 36.2; O2SAT 96
[2023-10-24] MEDS: CIPROFLOXACIN 250 MG TABLET 500 MG PO (09:09)
[2023-10-24] MEDS: ENOXAPARIN 30 MG/0.3 ML SYRINGE SUBCUT (09:09)
[2023-10-24 09:10] VITALS: BP 151/94; PULSE 81
[2023-10-24] MEDS: carvediloL 12.5 MG TABLET 25 MG PO ×2 (09:10→21:14)
[2023-10-24] MEDS: ISOSORBIDE MONONITRATE ER 30 MG TABLET 60 MG PO (09:10)
[2023-10-24] MEDS: ACETAMINOPHEN 325 MG TABLET 650 MG PO (09:10)
[2023-10-24] MEDS: CLOPIDOGREL 75 MG TABLET PO (09:10)
[2023-10-24] MEDS: SERTRALINE 50 MG TABLET 100 MG PO (09:10)
--- NOTE | 2023-10-24 09:38 | PT.IIE ---
Current Diagnoses Sepsis, unspecified organism (10/22/23) Surgical History (Last Reviewed 10/23/23 @ 13:57 by Guero Noble DO) History of appendectomy History of bilateral hip replacements History of cholecystectomy History of left knee surgery History of surgery on right wrist Medical History (Last Reviewed 10/23/23 @ 13:57 by Guero Noble DO) CAD (coronary artery disease) COVID-19 Dementia Fall HFrEF (heart failure with reduced ejection fraction) Major depression in partial remission Myocardial infarction Osteoarthritis Plaque psoriasis Type 2 diabetes mellitus Physical Therapy Inpatient Evaluation/Re-Eval M1 PT/OT-IP Prior Functional Status Start: 10/23/23 15:42 Freq: NEEDED Status: Active Protocol: Document 10/24/23 08:15 [facility] (Rec: 10/24/23 09:37 [facility] [id number]) Medical Review Prior Functional Status Medical History Reviewed Yes Diet/Fluid Consistency Regular Communication WNLs Mobility and Gait Pt states uses a 4ww to walk with. Activities of Daily Living and IADL's Pt states able to do all ADL needs and has assist for IADL needs. Pt states she does her bills and that her daughter assists with medication set-up . Pt states she showers on her own but the medical chart states she has supervision. Social History Household Members family,children Living Arrangements House Number of Floors (Floors) Two Floors Number of Stairs To Enter/Railing? One tall step with no rails and that her son in law assists her into and out of the house. Pt also has a tall bed with a step with handle to help get into the bed. Per medical chart states pt has dementia and will have to reconfrim information with her daughter. Home Environment Standard Height Toilet,Tub/ Shower Home Equipment Four Wheel Walker,Manual Wheelchair,Shower Seat with Backrest,Hand Held Shower,Lift Recliner Employment Status Retired M2 PT-IP Current Condition Start: 10/24/23 08:06 Freq: NEEDED Status: Active Protocol: Document 10/24/23 08:15 [facility] (Rec: 10/24/23 09:37 [facility] [id number]) Physical Therapy Current Condition Current Condition Evaluation Date 10/24/23 Treatment Diagnosis Confusion, unable to keep anything down M3 PT-IP Subjective Start: 10/24/23 08:06 Freq: NEEDED Status: Active Protocol: Document 10/24/23 08:15 [facility] (Rec: 10/24/23 09:37 [facility] [id number]) Subjective Physical Therapy Visit Type Type Initial Evaluation Visit Start Time 08:15 Visit Stop Time 08:37 Number of NONPROFIT DIRECTOR Visits 0 Physical Therapy Visit Comments Patient Comments Pt is agreeable to get up with PT, does not state goal. Therapy Pain Assessment Pain When Pain Assessed At Rest Pain Present Pain Present Denied Pain M4 PT-IP Mobility and Gait Start: 10/24/23 08:06 Freq: NEEDED Status: Active Protocol: Document 10/24/23 08:15 [facility] (Rec: 10/24/23 09:37 [facility] [id number]) PT-Bed Mobility Assessment Rolling Level of Assist Independent Supine to Sit Supine to Sit Independent Scooting Scooting to Edge of Bed Independent PT-Transfer Assessment Sit to and From Stand Sit to and from Stand Contact Guard Assistance,1 Person Assistance,Use of Upper Extremities Equipment Transfer Assistive Device Gait Belt,Front Wheeled Walker Orthotic/Prosthetic Devices or Brace: No Transfers Transfer Destination Chair,Toilet Transfer Technique Ambulation Transfer Ability Level of Assist Contact Guard Assistance,1 Person Assistance,Use of Upper Extremities Comments Mobility Comments Cues to begin tasks and to use hands on bed and not the walker for STS. Pt with good answering of PLOF questions and then appears somewhat confused with simple commands for functional tasks and to continuing doing tasks once started: delayed processing and slow. When asked to try to wipe after toileting, pt states that she does do it at home but it takes all day. NUTRITION SERVICES WORKER assist. Cues and set-up for washing hands at sink. More trouble standing up from lower toilet than the bed and PT provides cues for hand placement. Gait Assessment Gait Gait Assistance Required: Contact Guard Assist Distance (Feet) 20 Able to Maintain Weight Bearing Status Yes During Gait Assistive Devices Assistive Device Gait Belt,Front Wheeled Walker Orthotic/Prosthetic Devices or Brace: No Gait Deviations General Gait Pattern Decreased Feet Clearance, Flexed Trunk Factors Limiting Gait Function Factors Limiting Gait Function Decreased Activity Tolerance, Difficulty Following Directions,Incoordination,Poor Balance,Poor Safety Awareness Comments Gait Comments Pt requires cues for where to go in the room and to stay on task, PT manages moving the walker around after pt stands at the sink with CGA PT-Balance Assessment Sitting Balance and Reactions Static Sitting Balance Ability Good Dynamic Sitting Balance Ability Good Standing Balance and Reactions Static Standing Balance Ability Good Dynamic Standing Balance Ability Good Device Used RW M5 PT-IP Objective Assessments Start: 10/24/23 08:06 Freq: NEEDED Status: Active Protocol: Document 10/24/23 08:15 [facility] (Rec: 10/24/23 09:37 [facility] [id number]) Orientation Orientation/Cognition Level of Alertness Confusional State Orientation Name,Age,Birthday,Month,Date, Year,Place,Situation Language Function Ability No Deficits Noted Safety Awareness Decreased Safety Awareness Comments Unsure how accurate she is about PLOF but her answers seem similar to what OT documented last date and she provides appropriate conversation about her family and what they do Gross Range of Motion Upper Extremity ROM Impairments Defer to OT Lower Extremity ROM Assessment Within Functional Limits Strength Lower Extremity Strength Assessment Within Functional Limits Sensation Assessment Sensation Gross Sensation WNL Muscle Tone Muscle Tone WNL Yes M6 PT-IP Treatment Start: 10/24/23 08:06 Freq: NEEDED Status: Active Protocol: Document 10/24/23 08:15 [facility] (Rec: 10/24/23 09:37 [facility] [id number]) Physical Therapy Treatment Education Education Provided Safety M7 PT-IP Assessment and Plan Start: 10/24/23 08:06 Freq: NEEDED Status: Active Protocol: Document 10/24/23 08:15 [facility] (Rec: 10/24/23 09:37 MB [id number]) PT Summary Assessment and Plan Potential Rehabilitation Potential Good Status of Condition at Evaluation Evolving Summary Impairments Balance,Coordination,Cognition ,Transfers,Gait Progress Towards Goals Progressing Toward Goals Assessment Summary Pt is a 78 y/o female who answers orientation questions and converses about her family well this a.m. but who then has trouble following simple one-step functional commands and continuing with functional tasks and mobility once starting to move. She only requires CGA for gait but PT must don socks and NUTRITION SERVICES WORKER assists with toileting. Cognition appears to be biggest barrier to functional I. Mild loose stool noted on pad and soiled brief today. Currently, it appears that pt has assistance at home with IADLs and so she may be approaching baseline function. PT will attempt further gait and stair training as appropriate. Goals Bed Mobility Goal Independent Transfer Goal Standby Assistance,Front Wheeled Walker,Four Wheeled Walker Gait Goal Standby Assistance,Front Wheel Walker,Four Wheel Walker Gait Distance 100 Other Goals Pt will ascend and descend 1 step with LRAD and CGA. Pt will I get into tall bed. Days to Meet Goals 5 Frequency of Treatment Frequency Of Treatment Once a Day Treatment Plan Physical Therapy Treatment Plan Bed Mobility Training,Transfer Training,Gait Training, Therapeutic Exercise Other Recommendations and Next Treatment Stair training, transfer and Focus mobility training from tall bed, increase gait, advance to 4WW Precautions Other Precautions Fall risk, confusion Weight Bearing Status Weight Bearing Status Weight Bear as Tolerated Recommendations To Nursing Amount of Assist Needed 1 Person Assist Discharge Recommendations PT Discharge Recommendations Home with 05/11 Assist Available,Home Health Transportation Needs at Discharge Private Vehicle
--- NOTE | 2023-10-24 10:32 | PC.NURSE ---
Day shift: Per NOC RN Beatriz, concern over not making enough urine and impossible to accurately measure urine due to frequent watery bowel movements. Notified MD Noble who requested bladder scan to make sure not retaining. Bladder scanned for 63mL. No concern for retention. MD Noble stated no need for [place] to measure accurate I&Os, that patient's kidney function labs look ok. Will continue to monitor.
[2023-10-24] MEDS: POTASSIUM CHLORIDE 20 MEQ TAB 40 MEQ PO (11:52)
--- NOTE | 2023-10-24 13:32 | PM.PN.1 ---
Subjective Subjective Interval history: Continue to feel weak, ill, and nauseous today. Not eating well. No nausea/ vomiting. Continues to have loose stools. Exam Vital Signs (past 8 hours): - 10/24/23 08:00 10/24/23 09:10 Temperature 97.2 F L Pulse Rate 81 81 Respiratory Rate 16 Blood Pressure 151/94 H 151/94 H Pulse Oximetry 96 Oxygen Flow Rate 0 Oxygen Delivery Method Room Air Oxygen Flow Rate 0 Narrative Exam Narrative: General:? Patient is well developed and well nourished, in no distress at this time. HEENT:? Normocephalic, atraumatic, extraocular muscles intact, oral pharynx is clear and mucous membranes are moist. Neck: supple and symmetric, trachea is midline Chest:? Normal AP diameter and contour without kyphoscoliosis, no tachypnea, equal chest rise bilaterally. Lungs:? CTA b/l no wheezing rhonchi or rales. Cardio:?RRR no m/r/g. Abdomen: S NT ND. Extremities: No edema or joint effusions. No cyanosis or clubbing. Skin:? Pale,? Warm to touch,dry and intact without rashes, ulcerations or petechiae.? Neuro:? Alert,? sensation to touch intact in all extremities, no gross deficits noted of cranial nerves. Psych:? Patient has a well-kept appearance, appropriate affect, mental status attitude thought context and judgment are appropriate for age. Objective Labs 10/24/23 05:10 10/24/23 05:10 Labs: Laboratory Results - last 24 hr 10/24/23 05:10 WBC 5.3 RBC 4.72 Hgb 12.6 Hct 39.3 MCV 83.4 MCH 26.7 MCHC 32.0 RDW 15.5 H Plt Count 200 Neut % (Auto) 75.2 H Lymph % (Auto) 11.8 L [place] % (Auto) 9.4 Eos % (Auto) 2.8 Baso % (Auto) 0.8 Neut # (Auto) 4000 Lymph # (Auto) 600 L [place] # (Auto) 500 Eos # (Auto) 100 Baso # (Auto) 0 Sodium 138 Potassium 3.3 L Chloride 104 Carbon Dioxide 26 BUN 40 H Creatinine 2.19 H Estimated GFR 23 L BUN/Creatinine Ratio 18.3 Glucose 88 Calcium 8.3 L [facility] Medical History Dementia CAD (coronary artery disease) HFrEF (heart failure with reduced ejection fraction) Fall COVID-19 Osteoarthritis Major depression in partial remission Type 2 diabetes mellitus Plaque psoriasis Myocardial infarction Surgical History History of surgery on right wrist History of bilateral hip replacements History of left knee surgery History of cholecystectomy History of appendectomy Family History Mother Congestive heart failure Brother Congestive heart failure Social History household members: family and children Smoking Status: Never smoker alcohol intake: never substance use type: does not use Assessment & Plan Assessment & Plan narrative: 78 years old female with a past medical history of CHFrEF, CKD stage 4, DM, HTN, CAD with significant LAD disease not amenable to stenting admitted with sepsis due to acute cystitis. 1. Sepsis secondary to acute cystitis with acute metabolic encephalopathy, elevated Cr, and hyperbilirubinemia - SOFA score >3 on admission - continue ceftriaxone 1g q24 hours, stop IV fluids with PMH of CHFrEF - lactate improved to 1.6 - follow up blood and urine cultures, urine with sensitive klebsiella. Changed to oral ciprofloxacin today to see if improvement in loose stools. 2. Coronary artery disease history. Continue her home Coreg/Lipitor/Plavix 3. Chronic kidney disease appears to be at baseline and monitor - creatinine 2.19 today, exactly at prior baseline reported by nephrology documentation that was reviewed. 4 depression - continue Zoloft 5. GERD - continue resume home Protonix 6 diabetes mellitus. Monitor blood sugar ACHS with insulin sliding scale. Hold the home glipizide due to poor p.o. intake 7. Fungal infection under the skin fold. Initiate nystatin cream follow wound care 8. Diarrhea - - GI Panel negative. Possibly secondary to antibiotics, can give loperamide as needed. Have changed antibiotics as noted above today. Code: Limited code in that no intubation but okay with chest compressions, surrogate is patient's daughter. Will further discuss over the course of admission. DVT: Lovenox daily, renal dosing I have utilized all available immediate resources to obtain, update, or review the patient's current medications. Dispo: patient admitted under inpatient status. Unclear if will be able to discharge home or possible SNF, will have PT/OT evaluations. Additional history obtained via discussions with the bedside staff, and case management. These discussions contributed to the creation of the above assessment and plan. I have reviewed patient's presenting documentation, labs, and imaging personally. Time-Based Coding :: [TOTAL MINUTES] spent with patient and on the chart (including review of chart, obtaining history, exam, reviewing outside data, placing orders, documenting exam and treatment plan, and counseling patient) on [DATE].
[2023-10-24 14:00] VITALS: BP 146/83; PULSE 89; RESP 16; TEMP 36.4; O2SAT 95
[2023-10-24] MEDS: LOPERAMIDE 2 MG CAPSULE PO ×3 (14:11→21:13)
--- NOTE | 2023-10-24 16:53 | OT.IP.TRT ---
Current Diagnoses Sepsis, unspecified organism (10/22/23) Occupational Therapy Treatment Note M2 OT-IP Current Condition Start: 10/23/23 15:42 Freq: Status: Active Protocol: Document 10/23/23 15:43 [facility] (Rec: 10/23/23 16:03 [facility] [id number]) Occupational Therapy Current Condition Current Condition Evaluation Date 10/23/23 Treatment Diagnosis Sepsis due to acute cystitis with acute metabolic encephalopathy Diagnosis Onset Date 10/22/23 M3 OT- IP Subjective and Pain Start: 10/23/23 15:42 Freq: Status: Active Protocol: Document 10/24/23 16:53 [facility] (Rec: 10/24/23 17:04 [facility] [id number]) OT- Subjective Occupational Therapy Visit Type Type Treatment Note Visit Start Time 16:00 Visit Stop Time 16:53 Occupational Therapy Visit Comments Patient Comments Pt in the shower with nursing aid when OT came in. Patient/Caregiver Goals To go home. OT Pain Assessment Pain When Pain Assessed During Mobility Pain Present Pain Present Pain Reported M4 OT- IP ADL's Start: 10/23/23 15:42 Freq: Status: Active Protocol: Document 10/24/23 16:53 [facility] (Rec: 10/24/23 17:04 [facility] [id number]) OT [id number] Comments OT Self-Feeding Comments Not at meal time. OT ADL-Grooming Comments OT Grooming Comments Not performed. OT ADL-Oral Care Comments Oral Care Comments Not performed. OT ADL-Dressing General Eval Lower Body Dressing Ability Moderate Assistance Areas Needing Assistance Socks Comments OT Dressing Comments Pt able to mony the brief and needing assist for socks. OT ADL-Bathing Bathing Type Bathing Type Shower General Evaluation Bathing Ability Minimal Assistance Areas Needing Assistance Wash/Dry Back,Wash/Dry Perineal Area Comments OT Bathing Comments Assist for completeness. At this time pt will benefit from at least supervision for showers. Pt states does not shower if not feeling well and will wait for someone to be home. M5 OT- IP IADL's Start: 10/23/23 15:42 Freq: Status: Active Protocol: Document 10/23/23 15:43 [facility] (Rec: 10/23/23 16:03 [facility] [id number]) OT-Instrumental Activities of Daily Living Home Safety Awareness Ability to Problem Solve Emergency Able to Problem Solve Situations Home Safety Comments Pt able to answer all home safety questions with good accuracy. Medication Management Medication Management Caregiver Provides Supervision Money Management Money Management Comments Pt states does her own. Meal Preparation Meal Preparation Caregiver Provides Assist Imaging Account Manager Imaging Account Manager Caregiver Provides Assist M6 OT- IP Functional Cognition Start: 10/23/23 15:42 Freq: Status: Active Protocol: Document 10/24/23 16:53 [facility] (Rec: 10/24/23 17:04 [facility] [id number]) Cognitive Factors Limiting Selfcare Function Cognitive Ability Level of Alertness Alert Patient Orientation Name,Place,Situation Attention Span Ability Capable of Focused Attention, Capable of Sustained Attention Ability to Follow Commands Able to Follow One Step Commands with Increased Time, Able to Follow One Step Commands with Repetition Memory Description Short 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,Working Impaired Cognitive Comments Cognitive Assessment Comments Pt needing increased time to do ADL needs. Pt at times slow to respond to questions. Pt states her daughter does not want her to drive but that she feels that she can drive. Therefore completed cognitive assessment of [place] Making. Pt scored 397 seconds with MAX vc on [place] making Part B which implies severe impairments for speed of processing, task switching, executive functioning, mental flexibility , and visual scanning. Pt finally agreed not to drive at this time. Pt's daughter came in and fully agreed that pt will not be driving. Also recommended that her daughter provide at least supervision and assist for money management needs. M7 OT- IP Mobility and Balance Start: 10/23/23 15:42 Freq: Status: Active Protocol: Document 10/24/23 16:53 [facility] (Rec: 10/24/23 17:04 [facility] [id number]) OT-Transfer Assessment Sit to and From Stand Sit to and from Stand Standby Assistance Transfers Transfer Ability Standby Assistance Technique Transfer Destination Bed,Shower Stall Transfer Technique Stand Step Pivot Devices Transfer Assistive Devices None,Front Wheeled Walker Comments Mobility Comments Pt increased time to get into bed. Pt may benefit from a bed rail at home or lower bed. close SBA with FWW at this time. OT- Balance Assessment Sitting Balance and Reactions Static Sitting Balance Ability Good Dynamic Sitting Balance Ability Good Standing Balance and Reactions Static Standing Balance Ability Fair Dynamic Standing Balance Ability Fair M8 OT- IP Objective Assessments Start: 10/23/23 15:42 Freq: Status: Active Protocol: Document 10/23/23 15:43 [facility] (Rec: 10/23/23 16:03 [facility] [id number]) OT Gross Range of Motion Upper Extremity Range of Motion Assessment Within Functional Limits OT Strength Comments Strength Comments BUE 4/5 OT- Coordination Assessment Upper Extremity Finger to Nose Test Within Functional Limits M9 OT- IP Assessment and Plan Start: 10/23/23 15:42 Freq: Status: Active Protocol: Document 10/24/23 16:53 [facility] (Rec: 10/24/23 17:04 [facility] [id number]) OT Summary Assessment and Plan Potential Rehabilitation Potential Good Analytic Complexity at Evaluation Moderate Summary OT Impairments Strength,Balance,Functional Cognition,Functional Mobility, Grooming,Dressing,Toileting, Bathing,Toilet Transfers, Shower Transfers,Activity Tolerance Progress Towards Goals Progressing Toward Goals,Slow Progress due to Pain,Slow Progress due to Medical Issues ,Slow Progress due to Activity Tolerance,Slow Progress due to Cognition Assessment Summary Pt able to participate in showering and cognitive assessment. Pt's daughter and son in law able to come in at the end of the session and realize that pt will be needing more assist at home especially for IADL needs. Pt is agreeable to try home health at home. Goals Grooming Goal Independent Dressing Goal Independent Toileting Goal Independent Bathing Goal Standby Assistance Toilet Transfer Goal Independent Shower Transfer Goal Standby Assistance Days to Meet Goals 5 Frequency of Treatment Frequency Of Treatment Once a Day Treatment Plan OT Treatment Plan ADL Training,Functional Cognition Training,Functional Mobility,Patient/Family Education,Discharge Planning Discharge Recommendations OT Discharge Recommendations Home with 05/11 Assist Available,Home Health Transportation Needs at Discharge Private Vehicle
[2023-10-24] MEDS: INSULIN LISPRO 100 UNIT/ML 3ML VIAL SUBCUT (17:02)
[2023-10-24 19:00] VITALS: BP 121/65; PULSE 75; RESP 18; TEMP 36.3; O2SAT 97
[2023-10-24] MEDS: FAMOTIDINE 20 MG TABLET PO (21:13)
[2023-10-24] MEDS: ATORVASTATIN 20 MG TABLET 40 MG PO (21:13)
[2023-10-24 21:14] VITALS: BP 121/65; PULSE 75
[2023-10-25 05:32] LABS: Add Manual Diff / Slide Review NO; Basophils Absolute Auto 0 /uL (0-100); Basophils Percent Auto 0.7 % (0-2); Eosinophils Absolute Auto 200 /uL (0-450); Hematocrit 35.3 % (36-46); Hemoglobin 11.5 g/dL (12.0-16.0); Lymphocytes Absolute Auto 500 /uL (1100-4500); Lymphocytes Percent Auto 9.9 % (25-40); Mean Corpuscular HGB Conc 32.6 % (30-36); Mean Corpuscular Volume 83.1 fL (80-100); Monocytes Absolute Auto 400 /uL (0-900); Monocytes Percent Auto 8.9 % (3-14); Neutrophils Absolute Auto 3800 /uL (1500-7000); Neutrophils Percent Auto 76.5 % (50-75); Platelet Count 199 X10^3/uL (150-400); Red Blood Cell Count 4.25 X10^6/uL (4.0-5.2); Red Cell Distribution Width 15.4 % (11.6-14.8); White Blood Cell Count 4.9 X10^3/uL (4.5-11.0)
[2023-10-25 05:55] LABS: BUN Creatinine Ratio 19.9 (6-22); Blood Urea Nitrogen 38 mg/dL (7-17); Calcium 8.3 mg/dL (8.4-10.2); Carbon Dioxide 24 mmol/L (22-32); Chloride 104 mmol/L (98-107); Estimated Glomerular Filt Rate 27 mL/min (>60); Glucose 166 mg/dL (80-110); HEMOLYSIS 24 (0-50); Potassium 3.7 mmol/L (3.4-5.1); Sodium 134 mmol/L (137-145)
[2023-10-25] MEDS: PANTOPRAZOLE DR 40 MG TABLET PO (07:06)
[2023-10-25 09:04] VITALS: BP 156/85; PULSE 77; RESP 16; TEMP 36.6; O2SAT 98
[2023-10-25] MEDS: CIPROFLOXACIN 250 MG TABLET 500 MG PO (09:07)
[2023-10-25 09:08] VITALS: BP 156/85; PULSE 77
[2023-10-25] MEDS: carvediloL 12.5 MG TABLET 25 MG PO ×2 (09:08→20:47)
[2023-10-25] MEDS: ENOXAPARIN 30 MG/0.3 ML SYRINGE SUBCUT (09:08)
[2023-10-25] MEDS: SERTRALINE 50 MG TABLET 100 MG PO (09:08)
[2023-10-25] MEDS: CLOPIDOGREL 75 MG TABLET PO (09:09)
[2023-10-25] MEDS: ISOSORBIDE MONONITRATE ER 30 MG TABLET 60 MG PO (09:09)
[2023-10-25] MEDS: NYSTATIN POWDER 15GM 1 APPLIC TOP ×2 (09:12→20:48)
[2023-10-25] MEDS: NYSTATIN CREAM 30 GM 1 APPLIC TOP ×2 (09:13→20:58)
--- NOTE | 2023-10-25 11:55 | PT.IPTN ---
Current Diagnoses Sepsis, unspecified organism (10/22/23) Physical Therapy Treatment Note M2 PT-IP Current Condition Start: 10/24/23 08:06 Freq: NEEDED Status: Active Protocol: Document 10/24/23 08:15 MB (Rec: 10/24/23 09:37 [facility] [id number]) Physical Therapy Current Condition Current Condition Evaluation Date 10/24/23 Treatment Diagnosis Confusion, unable to keep anything down M3 PT-IP Subjective Start: 10/24/23 08:06 Freq: NEEDED Status: Active Protocol: Document 10/25/23 12:18 TS (Rec: 10/25/23 12:29 TS [id number]) Subjective Physical Therapy Visit Type Type Treatment Note Visit Start Time 11:55 Visit Stop Time 12:10 Number of TREASURY SPECIALIST Visits 1 Physical Therapy Visit Comments Patient Comments Pt found resting in bed, requires some motivation to participate with PT. M4 PT-IP Mobility and Gait Start: 10/24/23 08:06 Freq: NEEDED Status: Active Protocol: Document 10/25/23 12:18 TS (Rec: 10/25/23 12:29 TS [id number]) PT-Bed Mobility Assessment Rolling Level of Assist Independent Supine to Sit Supine to Sit Independent Sit to Supine Sit to Supine Independent Scooting Scooting to Edge of Bed Independent PT-Transfer Assessment Sit to and From Stand Sit to and from Stand Standby Assistance,1 Person Assistance,Use of Upper Extremities Equipment Transfer Assistive Device None,Front Wheeled Walker Orthotic/Prosthetic Devices or Brace: No Comments Mobility Comments Supine to sit Ind with HOB elevated and BUE support. STS with FWW SBA, pt is slow to stand. She ambulated ~30'SBA with FWW and slow step thru gait. She performed steps x2 with B handrails CGA, had no LOB or buckling. Sit to supine into bed Ind. Pt was left in bed, all needs met. Gait Assessment Gait Gait Assistance Required: Standby Assistance Distance (Feet) 30 Able to Maintain Weight Bearing Status Yes During Gait Assistive Devices Assistive Device Gait Belt,Front Wheeled Walker Orthotic/Prosthetic Devices or Brace: No Gait Deviations General Gait Pattern Decreased Feet Clearance, Flexed Trunk Factors Limiting Gait Function Factors Limiting Gait Function Decreased Activity Tolerance, Difficulty Following Directions,Incoordination,Poor Balance,Poor Safety Awareness Comments Gait Comments See mobility comments PT-Balance Assessment Sitting Balance and Reactions Static Sitting Balance Ability Good Dynamic Sitting Balance Ability Good Standing Balance and Reactions Static Standing Balance Ability Fair Dynamic Standing Balance Ability Fair Device Used RW M5 PT-IP Objective Assessments Start: 10/24/23 08:06 Freq: NEEDED Status: Active Protocol: Document 10/24/23 08:15 [facility] (Rec: 10/24/23 09:37 [facility] [id number]) Orientation Orientation/Cognition Level of Alertness Confusional State Orientation Name,Age,Birthday,Month,Date, Year,Place,Situation Language Function Ability No Deficits Noted Safety Awareness Decreased Safety Awareness Comments Unsure how accurate she is about PLOF but her answers seem similar to what OT documented last date and she provides appropriate conversation about her family and what they do Gross Range of Motion Upper Extremity ROM Impairments Defer to OT Lower Extremity ROM Assessment Within Functional Limits Strength Lower Extremity Strength Assessment Within Functional Limits Sensation Assessment Sensation Gross Sensation WNL Muscle Tone Muscle Tone WNL Yes M6 PT-IP Treatment Start: 10/24/23 08:06 Freq: NEEDED Status: Active Protocol: Document 10/25/23 12:18 TS (Rec: 10/25/23 12:29 TS [id number]) Physical Therapy Treatment Education Education Provided Safety M7 PT-IP Assessment and Plan Start: 10/24/23 08:06 Freq: NEEDED Status: Active Protocol: Document 10/25/23 12:18 TS (Rec: 10/25/23 12:29 TS [id number]) PT Summary Assessment and Plan Potential Rehabilitation Potential Good Summary Impairments Balance,Coordination,Cognition ,Transfers,Gait Progress Towards Goals Progressing Toward Goals Assessment Summary Mariya nicole continues to do well with her mobility. She is Ind for all bed mobility with no cueing and HOB elevated. She progressed her gait to ~30'SBA with FWW. She performed steps x2 on step stool with B handrails. Pt does not have have handrails at home and states Keon assists her. Her movements remains slow. She follows instructions well. Goals Bed Mobility Goal Independent Transfer Goal Standby Assistance,Front Wheeled Walker,Four Wheeled Walker Gait Goal Standby Assistance,Front Wheel Walker,Four Wheel Walker Gait Distance 100 Other Goals Pt will ascend and descend 1 step with LRAD and CGA. Pt will I get into tall bed. Days to Meet Goals 5 Frequency of Treatment Frequency Of Treatment Once a Day Treatment Plan Physical Therapy Treatment Plan Bed Mobility Training,Transfer Training,Gait Training, Therapeutic Exercise Other Recommendations and Next Treatment Stair training, transfer and Focus mobility training from tall bed, increase gait, advance to 4WW Precautions Other Precautions Fall risk, confusion Weight Bearing Status Weight Bearing Status Weight Bear as Tolerated Recommendations To Nursing Amount of Assist Needed Standby Assistance Discharge Recommendations PT Discharge Recommendations Home with 24/ Assist Available,Home Health Transportation Needs at Discharge Private Vehicle
--- NOTE | 2023-10-25 15:49 | PM.PN.1 ---
Subjective Subjective Interval history: Continue to feel weak, ill, and nauseous today. Not eating well. No nausea/ vomiting. Continues to have loose stools. She has had 3 this morning. This has been ongoing for weeks now. No improvement today. Did not get imodium overnight, did get it this morning. Changed to BID scheduled. Exam Vital Signs (past 8 hours): - 10/25/23 09:04 10/25/23 09:08 Temperature 97.9 F Pulse Rate 77 77 Respiratory Rate 16 Blood Pressure 156/85 H 156/85 H Pulse Oximetry 98 Oxygen Delivery Method Room Air Oxygen Flow Rate 0 Narrative Exam Narrative: General:? Patient is well developed and well nourished, in no distress at this time. HEENT:? Normocephalic, atraumatic, extraocular muscles intact, oral pharynx is clear and mucous membranes are moist. Neck: supple and symmetric, trachea is midline Chest:? Normal AP diameter and contour without kyphoscoliosis, no tachypnea, equal chest rise bilaterally. Lungs:? CTA b/l no wheezing rhonchi or rales. Cardio:?RRR no m/r/g. Abdomen: S NT ND. Extremities: No edema or joint effusions. No cyanosis or clubbing. Skin:? Pale,? Warm to touch,dry and intact without rashes, ulcerations or petechiae.? Neuro:? Alert,? sensation to touch intact in all extremities, no gross deficits noted of cranial nerves. Psych:? Patient has a well-kept appearance, appropriate affect, mental status attitude thought context and judgment are appropriate for age. Objective Labs 10/25/23 04:59 10/25/23 04:59 Labs: Laboratory Results - last 24 hr 10/25/23 04:59 WBC 4.9 RBC 4.25 Hgb 11.5 L Hct 35.3 L MCV 83.1 MCH 27.0 MCHC 32.6 RDW 15.4 H Plt Count 199 Neut % (Auto) 76.5 H Lymph % (Auto) 9.9 L [place] % (Auto) 8.9 Eos % (Auto) 4.0 Baso % (Auto) 0.7 Neut # (Auto) 3800 Lymph # (Auto) 500 L [place] # (Auto) 400 Eos # (Auto) 200 Baso # (Auto) 0 Sodium 134 L Potassium 3.7 Chloride 104 Carbon Dioxide 24 BUN 38 H Creatinine 1.91 H Estimated GFR 27 L BUN/Creatinine Ratio 19.9 Glucose 166 H Calcium 8.3 L PFSH Medical History Dementia CAD (coronary artery disease) HFrEF (heart failure with reduced ejection fraction) Fall COVID-19 Osteoarthritis Major depression in partial remission Type 2 diabetes mellitus Plaque psoriasis Myocardial infarction Surgical History History of surgery on right wrist History of bilateral hip replacements History of left knee surgery History of cholecystectomy History of appendectomy Family History Mother Congestive heart failure Brother Congestive heart failure Social History household members: family and children Smoking Status: Never smoker alcohol intake: never substance use type: does not use Assessment & Plan Assessment & Plan narrative: 78 years old female with a past medical history of CHFrEF, CKD stage 4, DM, HTN, CAD with significant LAD disease not amenable to stenting admitted with sepsis due to acute cystitis. 1. Sepsis secondary to acute cystitis with acute metabolic encephalopathy, elevated Cr, and hyperbilirubinemia - SOFA score >3 on admission - continued ceftriaxone 1g q24 hours, stop IV fluids with PMH of CHFrEF - lactate improved to 1.6 - urine with sensitive klebsiella. Changed to oral ciprofloxacin yesterday to see if improvement in loose stools but no change. Continue 5 days total therapy, ciprofloxacin to stop tomorrow. 2. Coronary artery disease history. Continue her home Coreg/Lipitor/Plavix - holding home diuretics (torsemide, metolazone). 3. Chronic kidney disease appears to be at baseline and monitor - creatinine 1.9 today, improved from outpatient baseline of 2.2 4 depression - continue Zoloft 5. GERD - continue resume home Protonix 6 diabetes mellitus. Monitor blood sugar ACHS with insulin sliding scale. Hold the home glipizide due to poor p.o. intake 7. Fungal infection under the skin fold. Initiate nystatin cream follow wound care 8. Diarrhea - - GI Panel negative. Possibly secondary to antibiotics. Have changed antibiotics as noted above without notable change thus far. - change to BID scheduled imodium, with another 2 doses as needed. If no improvement consider workup for more chronic diarrhea. Code: Limited code in that no intubation but okay with chest compressions, surrogate is patient's daughter. Will further discuss over the course of admission. DVT: Lovenox daily, renal dosing I have utilized all available immediate resources to obtain, update, or review the patient's current medications. Dispo: patient admitted under inpatient status. Discharge home likely 1-2 days. Additional history obtained via discussions with the bedside staff, and case management. These discussions contributed to the creation of the above assessment and plan. I have reviewed patient's presenting documentation, labs, and imaging personally. Time-Based Coding :: [TOTAL MINUTES] spent with patient and on the chart (including review of chart, obtaining history, exam, reviewing outside data, placing orders, documenting exam and treatment plan, and counseling patient) on [DATE].
[2023-10-25] MEDS: INSULIN LISPRO 100 UNIT/ML 3ML VIAL SUBCUT (17:05)
[2023-10-25 17:07] VITALS: BP 149/84; PULSE 75; RESP 17; TEMP 36.7; O2SAT 97
[2023-10-25 20:00] VITALS: BP 130/78; PULSE 78; RESP 18; TEMP 36.5; O2SAT 98
[2023-10-25 20:47] VITALS: BP 130/78; PULSE 78
[2023-10-25] MEDS: FAMOTIDINE 20 MG TABLET PO (20:47)
[2023-10-25] MEDS: ATORVASTATIN 20 MG TABLET 40 MG PO (20:47)
[2023-10-26 03:00] VITALS: BP 122/79; PULSE 77; RESP 20; TEMP 36.7; O2SAT 97
[2023-10-26] MEDS: ENOXAPARIN 30 MG/0.3 ML SYRINGE SUBCUT (08:12)
[2023-10-26 08:15] VITALS: BP 145/95; PULSE 77
[2023-10-26] MEDS: CLOPIDOGREL 75 MG TABLET PO (08:15)
[2023-10-26] MEDS: PANTOPRAZOLE DR 40 MG TABLET PO (08:15)
[2023-10-26] MEDS: carvediloL 12.5 MG TABLET 25 MG PO (08:15)
[2023-10-26] MEDS: SERTRALINE 50 MG TABLET 100 MG PO (08:15)
[2023-10-26] MEDS: LOPERAMIDE 2 MG CAPSULE PO (08:15)
[2023-10-26] MEDS: ISOSORBIDE MONONITRATE ER 30 MG TABLET 60 MG PO (08:15)
[2023-10-26] MEDS: NYSTATIN POWDER 15GM 1 APPLIC TOP (08:16)
[2023-10-26] MEDS: NYSTATIN CREAM 30 GM 1 APPLIC TOP (08:16)
[2023-10-26] MEDS: CIPROFLOXACIN 250 MG TABLET 500 MG PO (08:23)
[2023-10-26] MEDS: SODIUM CHLORIDE 0.9% FLUSH 10 ML IV (08:23)
--- NOTE | 2023-10-26 08:34 | PM.PN.1 ---
Subjective Subjective Interval history: Exam Vital Signs (past 8 hours): - 10/26/23 03:00 10/26/23 08:15 Temperature 98.1 F Pulse Rate 77 77 Respiratory Rate 20 Blood Pressure 122/79 145/95 H Pulse Oximetry 97 Oxygen Flow Rate 0 Oxygen Delivery Method Room Air Oxygen Flow Rate 0 Narrative Exam Narrative: NAD, alert and oriented. Fluent speech. Lungs are clear, normal rate and effort. Heart is regular, no murmur gallop or rub. Abdomen is soft, non distended. Extremities are free of edema. Objective Labs 10/25/23 04:59 10/25/23 04:59 PFSH Medical History Dementia CAD (coronary artery disease) HFrEF (heart failure with reduced ejection fraction) Fall COVID-19 Osteoarthritis Major depression in partial remission Type 2 diabetes mellitus Plaque psoriasis Myocardial infarction Surgical History History of surgery on right wrist History of bilateral hip replacements History of left knee surgery History of cholecystectomy History of appendectomy Family History Mother Congestive heart failure Brother Congestive heart failure Social History household members: family and children Smoking Status: Never smoker alcohol intake: never substance use type: does not use Assessment & Plan Assessment & Plan narrative: 78 years old female with a past medical history of CHFrEF, CKD stage 4, DM, HTN, CAD with significant LAD disease not amenable to stenting admitted with sepsis due to acute cystitis. 1. Sepsis secondary to acute cystitis with acute metabolic encephalopathy, elevated Cr, and hyperbilirubinemia. Present on admission and active. - SOFA score >3 on admission - continued ceftriaxone 1g q24 hours, stop IV fluids with PMH of CHFrEF - lactate improved to 1.6 - urine with sensitive klebsiella. Changed to oral ciprofloxacin to see if improvement in loose stools but no change. Continue 5 days total therapy, ciprofloxacin to stop today. 2. Coronary artery disease history, present on admission and stable. - Continue her home Coreg/Lipitor/Plavix - holding home diuretics (torsemide, metolazone). 3. Chronic kidney disease appears to be at baseline and monitor, present on admission and stable. - creatinine 1.9 today, improved from outpatient baseline of 2.2 4. Depression, present on admission and stable. - continue Zoloft 5. GERD, present on admission and stable. - continue resume home Protonix 6. Diabetes mellitus, present on admission and stable. - Monitor blood sugar ACHS with insulin sliding scale. Hold the home glipizide due to poor p.o. intake 7. Fungal infection under the skin fold. , present on admission and stable. - Initiate nystatin cream follow wound care 8. Diarrhea, present on admission and stable. - - GI Panel negative. Possibly secondary to antibiotics. Have changed antibiotics as noted above without notable change thus far. - change to BID scheduled imodium, with another 2 doses as needed. If no improvement consider workup for more chronic diarrhea. Code: Limited code in that no intubation but okay with chest compressions, surrogate is patient's daughter. Will further discuss over the course of admission. DVT: Lovenox daily, renal dosing I have utilized all available immediate resources to obtain, update, or review the patient's current medications. Dispo: patient admitted under inpatient status. Discharge home likely 1-2 days. Time-Based Coding :: [TOTAL MINUTES] spent with patient and on the chart (including review of chart, obtaining history, exam, reviewing outside data, placing orders, documenting exam and treatment plan, and counseling patient) on [DATE].
--- NOTE | 2023-10-26 11:21 | PM.DS.1 ---
History of Present Illness History of Present Illness Chief complaint: unable to keep anything down, confusion, weakness Narrative: 78 years old female with a past medical history of hypertension, chronic kidney disease, congestive heart failure, coronary artery disease, diabetes mellitus and other medical issues presented emergency room for suprapubic pain and per family had increased confusion for the past 24 hours. Denies any chest pain shortness of breath and no reported fevers. Did have nausea with vomiting nonbloody. Has some baseline dementia but she was more confused than usual. At this time she points to her suprapubic region for being. Otherwise, most of the history has been obtained from the chart and caregivers. In the ED labs showed a white count of 9.2 with a hemoglobin of 14.3. BUN is 13 and elevated creatinine of 2.2. Urine analysis shows 3+ leukocyte esterase. EKG shows sinus tachycardia. Lactic acid was 2.8. Patient was given IV fluids but not sepsis protocol due to heart failure history. IV Rocephin was given pending cultures and admitted for further evaluation Updates: patient is improving today, she is no longer nauseous but has diarrhea. Denies abdominal pain. GI panel negative for infectious etiologies. Discharge Providers Provider Date of admission: 10/22/23 23:33 Discharge Date: 10/26/23 Primary care physician: Magalys Deluca DO Consults: 10/23/23 14:17 Consult to Occupational Therapy Evaluate & Treat Comment: Physician Instructions: Evaluate and treat Consult to Physical Therapy Evaluate & Treat Comment: Physician Instructions: Evaluate and Treat Discharge provider: Dereje Kang MD Summary Hospital Course Discharge Diagnosis: 1. Sepsis secondary to acute cystitis with acute metabolic encephalopathy, elevated Cr, and hyperbilirubinemia. Present on admission and improved. - SOFA score >3 on admission - continued ceftriaxone 1g q24 hours, stop IV fluids with PMH of CHFrEF - lactate improved to 1.6 - urine with sensitive klebsiella. Changed to oral ciprofloxacin yesterday to see if improvement in loose stools but no change. Continue 5 days total therapy, ciprofloxacin to stop tomorrow. 2. Coronary artery disease history. Present on admission and stable. - Continue her home Coreg/Lipitor/Plavix - holding home diuretics (torsemide, metolazone). 3. Chronic kidney disease 3. Present on admission and stable. - creatinine stable 4 depression. Present on admission and stable. - continue Zoloft 5. GERD. Present on admission and stable. - continue resume home Protonix 6 diabetes mellitus 2. Present on admission and stable. -Monitor blood sugar ACHS with insulin sliding scale. Hold the home glipizide due to poor p.o. intake 7. Fungal infection under the skin fold. Present on admission and stable. - Initiate nystatin cream follow wound care 8. Diarrhea. Present on admission and stable. - GI Panel negative. Possibly secondary to antibiotics. Have changed antibiotics as noted above without notable change thus far. - change to BID scheduled imodium, with another 2 doses as needed. If no improvement consider workup for more chronic diarrhea. Hospital Course: She was admitted for cystitis and treated with empiric antibiotics. She was converted to oral antibiotics to see if her acute and chronic loose stools would improve but there was really no change. It sounds as though she has had intermittent diarrhea and constipation for a prolonged period of time. There is also a concern for encephalopathy and in talking to the patient and her daughter the patient may be having some general memory loss issues. On the day of discharge patient felt close to baseline and she was hoping to return home. Her daughter voiced that she was comfortable with this plan and we will extend the course of antibiotics before additional days. It was recommended that they consider discussing a referral to Gastroenterology with her PCP as she was not seen gastroenterology yet. Status at Discharge Cognitive/behavioral status at discharge: at baseline, oriented Functional status at discharge: independent ambulation Overall status at discharge: patient is back to baseline Time Spent with Patient Time spent: Greater than 30 minutes Exam Vital Signs (past 8 hours): - 10/26/23 08:15 Pulse Rate 77 Blood Pressure 145/95 H Oxygen Delivery Method Room Air Oxygen Flow Rate 0 Narrative Exam Narrative: NAD, alert and oriented. Fluent speech. Lungs are clear, normal rate and effort. Heart is regular, no murmur gallop or rub. Abdomen is soft, non distended. Extremities are free of edema. Objective Labs 10/25/23 04:59 10/25/23 04:59 [facility] Medical History Dementia CAD (coronary artery disease) HFrEF (heart failure with reduced ejection fraction) Fall COVID-19 Osteoarthritis Major depression in partial remission Type 2 diabetes mellitus Plaque psoriasis Myocardial infarction Surgical History History of surgery on right wrist History of bilateral hip replacements History of left knee surgery History of cholecystectomy History of appendectomy Family History Mother Congestive heart failure Brother Congestive heart failure Social History household members: family and children Smoking Status: Never smoker alcohol intake: never substance use type: does not use Discharge Assessment & Plan Assessment and Plan Assessment: 1. Sepsis secondary to acute cystitis with acute metabolic encephalopathy, elevated Cr, and hyperbilirubinemia. Present on admission and improved. - SOFA score >3 on admission - continued ceftriaxone 1g q24 hours, stop IV fluids with PMH of CHFrEF - lactate improved to 1.6 - urine with sensitive klebsiella. Changed to oral ciprofloxacin yesterday to see if improvement in loose stools but no change. Continue 5 days total therapy, ciprofloxacin to stop tomorrow. 2. Coronary artery disease history. Present on admission and stable. - Continue her home Coreg/Lipitor/Plavix - holding home diuretics (torsemide, metolazone). 3. Chronic kidney disease 3. Present on admission and stable. - creatinine stable Plan of Treatment: Discharged home with oral antibiotics, Cipro b.i.d. for 4 additional days. PCP follow up within 1 week and urged to request a referral to Gastroenterology for intermittent constipation and diarrhea issues. Discharge Plan Discharge Plan Patient Disposition: Home Provider Discharge Comment: Met with family and patient. Stable for discharge home with oral antibiotics and close follow up. Discharge orders & Medications Prescriptions: New ciprofloxacin HCl [Cipro] 500 mg tablet 500 mg PO BID Qty: 8 0RF Continued cholecalciferol (vitamin D3) 25 mcg (1,000 unit) tablet 25 mcg PO BID Qty: 180 3RF clopidogrel 75 mg tablet 75 mg PO QAM Qty: 90 1RF atorvastatin 40 mg tablet 40 mg PO BEDTIME Qty: 90 1RF pantoprazole 40 mg tablet,delayed release (DR/EC) 40 mg PO DAILY Qty: 90 0RF (DME) Dexcom G7 [employer] Misc See Rx Instructions .ROUTE .MEDSUPPLY Qty: 1 1RF Rx Instructions: USE TO MONITOR BLOOD SUGAR LEVELS CONTINUOUSLY. REPLACE EVERY 365 DAYS OR IF BROKEN glycine amino acid 2 g PO DAILY sertraline 50 mg tablet 100 mg PO DAILY Qty: 90 1RF nystatin 100,000 unit/gram powder 1 applic topical BID Qty: 15 0RF (DME) Blood Glucose Test Strip See Rx Instructions .ROUTE .MEDSUPPLY Qty: 100 2RF Rx Instructions: Use to test blood glucose ONCE daily. carvedilol 25 mg tablet 25 mg PO BID Rx Instructions: must administer with a meal/food ascorbic acid (vitamin C) 500 mg Tablet,Chewable 500 mg PO QAM [id number] Tablet 1 tab PO QAM torsemide 10 mg tablet 10 mg PO DAILY isosorbide mononitrate 60 mg tablet extended release 24 hr 60 mg PO DAILY famotidine 40 mg tablet 40 mg PO QPM glipizide 5 mg tablet 2.5 mg PO DAILY metolazone 5 mg Tablet 2.5 mg PO SEEINSTR Rx Instructions: Saturday and Saturday AM gabapentin 100 mg capsule 200 mg PO QPM Medication counseling provided by Pharmacist: No Follow up/Referrals: Magalys Deluca DO [Primary Care Provider] - Diet/Activity/Treatments Diet: Low-sodium Activity: As tolerated Skin/Wound/Dressing Care Report to your healthcare provider any signs of infection, such as:: chills, fever, night sweats and increased pain Visit Report/Discharge Packet Instructions: Diarrhea, DI for Urinary Tract Infection (UTI), Ciprofloxacin Stand Alone Forms: Patient Portal/API Discharge Data Primary Care Provider: Magalys Deluca
--- NOTE | 2023-10-26 11:24 | PT-IP ANOTE ---
Pt refused to work with PT. She states she just wants to go home. Pt has d/c order.
== END 2023-10-26 13:00 | disposition home or self-care (01) | DRG 871 ==
LOC: ED 23:32 → AC 10-23 06:39
PROVIDERS: Internal Medicine; Admitting Provider Internal Medicine; Emergency Provider Emergency Medicine; Family Provider Family Medicine; PCP Family Medicine; Referring Provider Emergency Medicine; Visit Provider Internal Medicine
DX: A41.9 Sepsis, unspecified organism (principal); G93.41 Metabolic encephalopathy; N30.00 Acute cystitis without hematuria; I25.10 Atherosclerotic heart disease of native coronary artery without angina pectoris; F32.A Depression, unspecified; K21.9 Gastro-esophageal reflux disease without esophagitis; R11.2 Nausea with vomiting, unspecified; E11.22 Type 2 diabetes mellitus with diabetic chronic kidney disease; E80.6 Other disorders of bilirubin metabolism; B96.89 Other specified bacterial agents as the cause of diseases classified elsewhere; N18.30 Chronic kidney disease, stage 3 unspecified; B36.9 Superficial mycosis, unspecified; R19.7 Diarrhea, unspecified; I12.9 Hypertensive chronic kidney disease with stage 1 through stage 4 chronic kidney disease, or unspecified chronic kidney disease; Z79.84 Long term (current) use of oral hypoglycemic drugs
CPT/HCPCS: 36415; 80048; 80053; 81001; 82962; 83605; 83690; 84145; 85025; 87040; 87077; 87086; 87186; 87507; 93005; 96365; 96375; 97129; 97161; 97166; 97530; 97535; 99284; 99285; A9270; J0136; J0696; J1650; J1815; J2405

== ENCOUNTER 2023-11-06 18:39 | Observation (INO) | payer MEDICARE, OTHER, SELFPAY ==
[2023-10-23 00:56] VITALS: BMI 26.9
[2023-11-06] VITALS (16 sets, daily range): BP systolic 133–154; BP diastolic 70–86; PULSE 65–89; RESP 16–27; TEMP 36.4–36.9; O2SAT 93–98; BMI 27.4; BMI 26.5
--- NOTE | 2023-11-06 19:11 | DI.RAD.S_ITS ---
PROCEDURE: XR CHEST 1V INDICATIONS: Shortness of breath TECHNIQUE: One view of the chest was acquired. COMPARISON: [facility], CR, XR CHEST 1V, 09/23/2023, 18:18. FINDINGS: Surgical changes and devices: None. Lungs and pleura: There is pulmonary vascular congestion and suggestion of mild pulmonary edema. No pleural effusions or pneumothorax. Mediastinum: Tortuous thoracic aorta with aortic arch calcification is seen. Heart size is enlarged. Bones and chest wall: No suspicious bony lesions. Overlying soft tissues appear unremarkable. IMPRESSION: Cardiomegaly and mild congestion with suggestion of mild pulmonary edema. No definite focal infiltrate. No pleural effusion or pneumothorax. Dictated by: Devyn Perez M.D. on 11/06/2023 at 19:56 Approved by: Devyn Perez M.D. on 11/06/2023 at 19:56
--- NOTE | 2023-11-06 19:11 | EKG_ITS ---
[place] [id number] [place] [id number] Test Date: 2023-11-06 Pat Name: Frances Foley Department: Room: Gender: Female Psychic Reader: : 1945 Requested By: Order Number: [id number] Reading MD: Dereje Kang Measurements Intervals [place] Rate: 80 P: 10 MI: 226 QRS: -32 QRSD: 98 T: 155 QT: 346 QTc: 399 Interpretive Statements Sinus rhythm with 1st degree AV block Left axis deviation Possible Anterior infarct , age undetermined Electronically Signed On 11-07-2023 7:35:29 PDT by Dereje Kang
[2023-11-06 19:24] LABS: INR 1.4 (0.9-1.3); Prothrombin Time 15.8 SECONDS (9.4-12.5)
[2023-11-06 19:29] LABS: Lactate (Lactic Acid) 1.4 mmol/L (0.7-2.1)
[2023-11-06 19:30] LABS: Alanine Aminotransferase 15 IU/L (<35); Albumin 3.5 g/dL (3.5-5.0); Albumin Globulin Ratio 1.1 (1.0-2.8); Alkaline Phosphatase 145 U/L (38-126); Aspartate Aminotransferase 26 IU/L (14-36); BUN Creatinine Ratio 15.8 (6-22); Bilirubin Total 0.8 mg/dL (0.2-1.3); Blood Urea Nitrogen 30 mg/dL (7-17); Calcium 8.8 mg/dL (8.4-10.2); Carbon Dioxide 30 mmol/L (22-32); Chloride 98 mmol/L (98-107); Estimated Glomerular Filt Rate 27 mL/min (>60); Globulin 3.2 g/dL (1.7-4.1); Glucose 134 mg/dL (80-110); HEMOLYSIS < 15 (0-50); Sodium 134 mmol/L (137-145); Total Protein 6.7 g/dL (6.3-8.2)
--- NOTE | 2023-11-06 19:33 | PC.NURSE ---
Pt had two runs of Vtach. Dr Membreno aware. Defib placed to chest and back. Updated pt/family.
[2023-11-06 19:42] LABS: Troponin I 0.021 ng/mL (0.01-0.034)
[2023-11-06 19:45] LABS: Add Manual Diff / Slide Review NO; Basophils Absolute Auto 100 /uL (0-100); Basophils Percent Auto 1.1 % (0-2); Eosinophils Absolute Auto 200 /uL (0-450); Eosinophils Percent Auto 2.2 % (2-4); Hematocrit 38.3 % (36-46); Hemoglobin 12.5 g/dL (12.0-16.0); Lymphocytes Absolute Auto 700 /uL (1100-4500); Lymphocytes Percent Auto 9.7 % (25-40); Mean Corpuscular HGB Conc 32.6 % (30-36); Mean Corpuscular Hemoglobin 26.1 PG (26-34); Monocytes Absolute Auto 300 /uL (0-900); Monocytes Percent Auto 4.3 % (3-14); Neutrophils Absolute Auto 6200 /uL (1500-7000); Neutrophils Percent Auto 82.7 % (50-75); Platelet Count 225 X10^3/uL (150-400); Red Blood Cell Count 4.79 X10^6/uL (4.0-5.2); Red Cell Distribution Width 16.1 % (11.6-14.8); White Blood Cell Count 7.5 X10^3/uL (4.5-11.0)
[2023-11-06 19:55] LABS: NT-proBNP (BNP-Adult 18+) 36400 pg/mL (<450)
--- NOTE | 2023-11-06 21:15 | ED.SOB ---
HPI - SOB/Dyspnea General Chief Complaint: Shortness of Breath/Dyspnea Stated Complaint: SOB/retaining water Time Seen by Provider: 11/06/23 21:13 Source: patient and family Mode of arrival: Wheelchair Limitations: altered mental status History of Present Illness HPI Narrative: 78-year-old female with history of stage 4 kidney disease, congestive heart failure, coronary artery disease not felt to be interventional candidate with medical management only, recent hospitalization here at [facility] for urinary tract infection discharged last Saturday, completed course of antibiotic. Noted at home few days ago to start having lower extremity edema, given extra oral doses of Lasix at home. She has less edema but feels more short of breath today. No pain in the calves. She has no syncope or presyncope symptoms. No heart racing like symptoms. No fevers or chills. No cough. Related Data Home Medications Medication Instructions Recorded Confirmed ascorbic acid (vitamin C) 500 mg 500 mg PO QAM 07/25/21 11/06/23 chewable tablet [id number]-fyisdejz-eanpfp tablet 1 tab PO QAM 07/25/21 11/06/23 carvedilol 25 mg tablet 25 mg PO BID 02/26/22 11/06/23 glycine amino acid 2 g PO DAILY 03/06/23 11/06/23 famotidine 40 mg tablet 40 mg PO QPM 10/23/23 11/06/23 glipizide 5 mg tablet 2.5 mg PO DAILY 10/23/23 11/06/23 isosorbide mononitrate 60 mg 60 mg PO DAILY 10/23/23 11/06/23 tablet,extended release 24 hr metolazone 5 mg tablet 2.5 mg PO SEEINSTR 10/23/23 11/06/23 torsemide 10 mg tablet See Rx Instructions .Route .COMPLEX 10/23/23 11/06/23 gabapentin 100 mg capsule 200 mg PO PRN PRN Pain (Scale 10/24/23 11/06/23 Score 1-3) colestipol 1 gram tablet 1 g PO BID 11/06/23 11/06/23 Previous Rx's Medication Instructions Recorded cholecalciferol (vitamin D3) 25 25 mcg PO BID #180 tabs 09/22/21 mcg (1,000 unit) tablet clopidogrel 75 mg tablet 75 mg PO QAM #90 tabs 12/04/21 blood sugar diagnostic (Blood #100 ea 02/21/22 Glucose Test strips) atorvastatin 40 mg tablet 40 mg PO BEDTIME #90 tabs 05/07/22 pantoprazole 40 mg tablet,delayed 40 mg PO DAILY #90 tabs 09/10/23 release nystatin 100,000 unit/gram topical 1 applic topical BID #15 grams 10/01/23 powder sertraline 50 mg tablet 100 mg (2 x 50 mg) PO DAILY #90 11/05/23 tabs Allergies Allergy/AdvReac Type Severity Reaction Status Date / Time dimenhydrinate AdvReac Intermediate restless Verified 11/06/23 19:19 [From Dramamine] legs diphenhydramine AdvReac Intermediate restless Verified 11/06/23 19:19 [From Benadryl] legs hydrocodone AdvReac Intermediate Nausea Verified 11/06/23 19:19 Review of Systems Review of Systems Narrative: per HPI Patient History Medical History Dementia CAD (coronary artery disease) HFrEF (heart failure with reduced ejection fraction) Fall COVID-19 Osteoarthritis Major depression in partial remission Type 2 diabetes mellitus Plaque psoriasis Myocardial infarction Surgical History History of surgery on right wrist History of bilateral hip replacements History of left knee surgery History of cholecystectomy History of appendectomy Family History Mother Congestive heart failure Brother Congestive heart failure Social History household members: family and children Smoking Status: Never smoker alcohol intake: never substance use type: does not use Smoking Status: Never smoker Substance Use Type: does not use Exam Narrative Exam Narrative: GENERAL: Well-developed patient, in mild distress. HEAD: Atraumatic. Normocephalic. EYES: Pupils equal round and reactive. Extraocular motions intact. No scleral icterus. No injection or drainage. ENT: Nose without bleeding, purulent drainage. Throat without erythema, tonsillar hypertrophy or exudate. Airway patent. NECK: Trachea midline. Non tender CARDIOVASCULAR: Regular rate and rhythm without murmurs, gallops, or rubs. RESPIRATORY: Clear to auscultation. Breath sounds equal bilaterally. No wheezes, rales, or rhonchi. GASTROINTESTINAL: Abdomen soft, non-tender, nondistended. EXTREMITIES: No edema or joint tenderness. BACK: Nontender without deformity or crepitance. No flank tenderness. NEURO: AOx3. SKIN: No rash or erythema of visible areas Initial Vital Signs Initial Vital Signs: Vital Signs Blood Pressure 139/86 11/06/23 18:49 Pulse Oximetry 98 11/06/23 18:49 Course Orders Ordered: ED Orders 11/06/23 19:00 Complete Blood Count AUTO DIFF Stat Comprehensive Metabolic Panel Stat Lactate (Lactic Acid) Stat NT-proBNP (BNP-Adult 18+) Stat Prothrombin Time INR Stat Troponin I Stat 11/06/23 19:11 XR chest 1V Stat EKG-12 Lead Stat Measure peak expiratory flow ONCE RT Consult Eval and Treat NOW 11/06/23 21:25 Magnesium Stat Troponin I Stat 11/07/23 03:22 Urinalysis and Microscopic Stat Acetaminophen (Acetaminophen 325 Mg Tablet) 650 mg PO Q6H PRN PRN Reason: Fever/Mild Pain (1-3) Albuterol/Ipratropium (Albuterol/Ipratropium 3 Ml Ampul) 3 ml INH RTQ4HR PRN PRN Reason: Shortness Of Breath Famotidine (Famotidine 20 Mg Tablet) 40 mg PO QPM CARLOS Furosemide (Furosemide 40 Mg/4 Ml Vial) 40 mg IV BID CARLOS Gabapentin (Gabapentin 100 Mg Capsule) 200 mg PO PRN PRN PRN Reason: Pain (Scale Score 1-3) Magnesium Sulfate (Magnesium Sulfate) 4 gm in 100 mls @ 25 mls/hr IV NOW ONE Stop: 11/07/23 04:35 Last Admin: 11/07/23 01:34 Dose: 25 mls/hr Documented By: TIGRE Co-signed By: BERNARD Isosorbide Mononitrate (Isosorbide Mononitrate Er 30 Mg Tablet) 60 mg PO DAILY [facility] Metolazone (Metolazone 2.5 Mg Tablet) 2.5 mg PO MoWe CARLOS Naloxone HCl (Naloxone 0.4 Mg/Ml Vial) 0.2 mg IV Q2MIN PRN PRN Reason: Opiate Reversal Ondansetron HCl (Ondansetron 4 Mg/2 Ml Inj) 4 mg IV Q8HR PRN PRN Reason: Nausea And Vomiting Sertraline HCl (Sertraline 50 Mg Tablet) 100 mg PO DAILY [facility] Sodium Chloride (Sodium Chloride 0.9% Flush) 10 ml IV BID CARLOS Sodium Chloride (Sodium Chloride 0.9% Flush) 10 ml IV PRN PRN PRN Reason: Flush Last Admin: 11/07/23 01:35 Dose: 10 ml Documented By: TIGRE Discontinued Medications Furosemide 60 mg/ Sodium (Chloride) 56 mls @ 112 mls/hr IV NOW ONE Stop: 11/06/23 21:14 Last Admin: 11/06/23 21:30 Dose: 112 mls/hr Documented By: POTASSIUM CHLORIDE IN WATER (Potassium Cl 10 Meq/100 Ml Aleshia) 10 meq in 100 mls @ 100 mls/hr IV Q1H CARLOS Stop: 11/06/23 23:29 Last Infusion: 11/07/23 00:20 Dose: Infused Documented By: Admin: 11/06/23 22:57 Dose: 100 mls/hr Documented By: Infusion: 11/06/23 22:57 Dose: Infused Documented By: Admin: 11/06/23 21:39 Dose: 100 mls/hr Documented By: Potassium Chloride (Potassium Chloride 20 Meq/15 Ml Udc) 40 meq PO NOW ONE Stop: 11/06/23 21:18 Last Admin: 11/06/23 21:38 Dose: 40 meq Documented By: Vital Signs Vital signs: Vital Signs - 8 hr 11/06/23 20:00 11/06/23 20:00 11/06/23 20:30 Pulse Rate 81 80 Respiratory Rate 23 22 Blood Pressure 133/70 133/75 Pulse Oximetry 94 93 Oxygen Delivery Method Room Air 11/06/23 20:30 11/06/23 20:40 11/06/23 20:40 Pulse Rate 82 Respiratory Rate 24 Blood Pressure 136/75 141/78 H Pulse Oximetry 94 Oxygen Delivery Method 11/06/23 20:50 11/06/23 20:50 11/06/23 21:00 Pulse Rate 80 83 Respiratory Rate 25 H 21 Blood Pressure 139/76 Pulse Oximetry 94 93 Oxygen Delivery Method 11/06/23 21:00 11/06/23 21:10 11/06/23 21:10 Pulse Rate 81 Respiratory Rate 22 Blood Pressure 140/73 139/76 Pulse Oximetry 93 Oxygen Delivery Method 11/06/23 21:20 11/06/23 21:20 11/06/23 21:30 Pulse Rate 87 Respiratory Rate 24 Blood Pressure 154/80 H 154/82 H Pulse Oximetry 94 Oxygen Delivery Method 11/06/23 21:30 11/06/23 21:40 11/06/23 21:40 Pulse Rate 84 81 Respiratory Rate 25 H 27 H Blood Pressure 141/86 H Pulse Oximetry 95 94 Oxygen Delivery Method MDM - SOB/Dyspnea Lab Data Attestation: I reviewed the patient's lab results. 11/06/23 19:00 11/06/23 19:00 Labs: Lab Results 11/06/23 11/06/23 Range/Units 19:00 21:25 WBC 7.5 (4.5-11.0) X10^3/uL RBC 4.79 (4.0-5.2) X10^6/uL Hgb 12.5 (12.0-16.0) g/dL Hct 38.3 (36-46) % MCV 80.0 (80-100) fL MCH 26.1 (26-34) PG MCHC 32.6 (30-36) % RDW 16.1 H (11.6-14.8) % Plt Count 225 (150-400) X10^3/uL Neut % (Auto) 82.7 H (50-75) % Lymph % (Auto) 9.7 L (25-40) % [place] % (Auto) 4.3 (3-14) % Eos % (Auto) 2.2 (2-4) % Baso % (Auto) 1.1 (0-2) % Neut # (Auto) 6200 (0205-9533) /uL Lymph # (Auto) 700 L (4461-6233) /uL [place] # (Auto) 300 (0-900) /uL Eos # (Auto) 200 (0-450) /uL Baso # (Auto) 100 (0-100) /uL PT 15.8 H (9.4-12.5) SECONDS INR 1.4 H (0.9-1.3) Sodium 134 L (137-145) mmol/L Potassium 3.0 L (3.4-5.1) mmol/L Chloride 98 (98-107) mmol/L Carbon Dioxide 30 (22-32) mmol/L BUN 30 H (7-17) mg/dL Creatinine 1.90 H (0.52-1.04) mg/dL Estimated GFR 27 L (>60) mL/min BUN/Creatinine Ratio 15.8 (6-22) Glucose 134 H (80-110) mg/dL Lactate 1.4 (0.7-2.1) mmol/L Calcium 8.8 (8.4-10.2) mg/dL Magnesium 1.6 (1.6-2.3) mg/dL Total Bilirubin 0.8 (0.2-1.3) mg/dL AST 26 (14-36) IU/L ALT 15 (<35) IU/L Alkaline Phosphatase 145 H (38-126) U/L Troponin I 0.021 0.025 (0.01-0.034) ng/mL NT-Pro-B Natriuret Pep 85784 H (<450) pg/mL Total Protein 6.7 (6.3-8.2) g/dL Albumin 3.5 (3.5-5.0) g/dL Globulin 3.2 (1.7-4.1) g/dL Albumin/Globulin Ratio 1.1 (1.0-2.8) Imaging Data Chest x-ray: Radiologist's Impression: [address] [address] XRay Report Signed Patient: Frances Foley MR#: [id number] : 1945 Acct:[id number] Age/Sex: 78 / F Date of Service: 11/06/23 Loc: ED Accession Number: [id number] Procedure: XR chest 1V Ordering Provider: Fermin Membreno MD PROCEDURE: XR CHEST 1V INDICATIONS: Shortness of breath TECHNIQUE: One view of the chest was acquired. COMPARISON: [facility], , XR CHEST 1V, 09/23/2023, 18:18. FINDINGS: Surgical changes and devices: None. Lungs and pleura: There is pulmonary vascular congestion and suggestion of mild pulmonary edema. No pleural effusions or pneumothorax. Mediastinum: Tortuous thoracic aorta with aortic arch calcification is seen. Heart size is enlarged. Bones and chest wall: No suspicious bony lesions. Overlying soft tissues appear unremarkable. IMPRESSION: Cardiomegaly and mild congestion with suggestion of mild pulmonary edema. No definite focal infiltrate. No pleural effusion or pneumothorax. Dictated by: Devyn Perez M.D. on 11/06/2023 at 19:56 Approved by: Devyn Perez M.D. on 11/06/2023 at 19:56 ECG Data Attestation: I personally reviewed and interpreted this ECG as follows: Interpretation: Normal sinus rhythm with rate of 80, no obvious ST segment elevation or depression changes. W[place] 226, QRS 98, QTC 399. MDM Narrative Medical decision making narrative: 78-year-old female with history of CHF, takes oral Lasix, recent admission for urinary tract infection, lower extremity edema as an outpatient when treated with extra doses of oral Lasix, still feeling short of breath today. Bibasilar crackles on exam, trace lower extremity edema. Chest x-ray suspicious for CHF. BNP 70697. Potassium 3.0. IV and oral potassium initiated. IV Lasix dose. Patient had nonsustained run of ventricular tachycardia about 6 beats. Trop negative. Possibly electrolyte related. Consider admission, will consult hospitalist Case discussed with Dr. King, requests addition of serum magnesium level, accepts patient for admission to observation Critical Care Time Critical Care Time Critical Care Time: Yes Total Critical Care Time: 35 Attestation: The high probability of a clinically significant, sudden or life threatening deterioration of the [cardiopulmonary, genitourinary] system(s) required my full and direct attention, intervention and personal management. The aggregate critical care time was [35] minutes. This time is in addition to time spent performing reported procedures but includes the following: [x] Data Review and interpretation [x] Patient assessment and monitoring of vital signs [x] Documentation [x] Medication orders and management Discharge Plan Departure Patient Disposition: Admitted as Observation Clinical Impression: Dyspnea, Congestive heart failure, Acute hypokalemia, Non-sustained ventricular tachycardia Admit Date/Time: 11/06/23 21:46 Admit Provider: Wero King
[2023-11-06] MEDS: FUROSEMIDE 60 MG in SODIUM CHLORIDE 0.9% 50 ML 112 MG IV (21:30)
[2023-11-06] MEDS: POTASSIUM CHLORIDE 20 MEQ/15 ML UDC 40 MEQ PO (21:38)
[2023-11-06] MEDS: POTASSIUM CHLORIDE IN WATER 10 MEQ/100 ML PIGGYBACK 100 MEQ IV ×2 (21:39→22:57)
[2023-11-06 21:57] LABS: Troponin I 0.025 ng/mL (0.01-0.034)
[2023-11-06] MEDS: ONDANSETRON 4 MG/2 ML INJ (22:07)
--- NOTE | 2023-11-06 22:07 | PC.NURSE ---
Pt nauseated. Medicated with Zofran 4 mg IV.
[2023-11-06 22:12] LABS: Magnesium 1.6 mg/dL (1.6-2.3)
--- NOTE | 2023-11-06 22:44 | PC.NURSE ---
Patient arrived to floor, A&O x3. Patient able to pivot trans. to be with no difficulty. K-rider infusing. Call placed to daughter to assist with home medication verifying. LMOM to have her return call. Call light w/in reach and is aware to call w/ needs.
--- NOTE | 2023-11-06 23:49 | PC.ADMIT ---
Addendum entered by Dannielle Martin R.N. 11/07/23 01:45: Once placed on continuous oximetry finding O2 sat mostly 90-91% but dropping frequently down to 88-89% so placed on oxygen at 2L/min per NC with sat now at 94% so decreased to 1.5L/min and will continue to monitor and adjust as needed to keep sat > 92% as per MD order. Original Note: [email or web address] Anjel Admission Note: The patient,Frances Foley,78 y/o, was given written information regarding hospital policies, unit procedures and contact persons. Patient's smoking status: Never smoker. Vital Signs - 8 hr 11/06/23 18:49 11/06/23 18:49 11/06/23 19:00 Temperature 98.1 F Pulse Rate 81 Respiratory Rate 22 Blood Pressure 139/86 139/86 Pulse Oximetry 98 96 Oxygen Delivery Method Room Air Oxygen Flow Rate 11/06/23 19:00 11/06/23 19:30 11/06/23 19:30 Temperature Pulse Rate 83 81 Respiratory Rate 20 18 Blood Pressure 140/83 Pulse Oximetry 96 95 Oxygen Delivery Method Room Air Oxygen Flow Rate 11/06/23 20:00 11/06/23 20:00 11/06/23 20:30 Temperature Pulse Rate 81 80 Respiratory Rate 23 22 Blood Pressure 133/70 133/75 Pulse Oximetry 94 93 Oxygen Delivery Method Room Air Oxygen Flow Rate 11/06/23 20:30 11/06/23 20:40 11/06/23 20:40 Temperature Pulse Rate 82 Respiratory Rate 24 Blood Pressure 136/75 141/78 H Pulse Oximetry 94 Oxygen Delivery Method Oxygen Flow Rate 11/06/23 20:50 11/06/23 20:50 11/06/23 21:00 Temperature Pulse Rate 80 83 Respiratory Rate 25 H 21 Blood Pressure 139/76 Pulse Oximetry 94 93 Oxygen Delivery Method Oxygen Flow Rate 11/06/23 21:00 11/06/23 21:10 11/06/23 21:10 Temperature Pulse Rate 81 Respiratory Rate 22 Blood Pressure 140/73 139/76 Pulse Oximetry 93 Oxygen Delivery Method Oxygen Flow Rate 11/06/23 21:20 11/06/23 21:20 11/06/23 21:30 Temperature Pulse Rate 87 Respiratory Rate 24 Blood Pressure 154/80 H 154/82 H Pulse Oximetry 94 Oxygen Delivery Method Oxygen Flow Rate 11/06/23 21:30 11/06/23 21:40 11/06/23 21:40 Temperature Pulse Rate 84 81 Respiratory Rate 25 H 27 H Blood Pressure 141/86 H Pulse Oximetry 95 94 Oxygen Delivery Method Oxygen Flow Rate 11/06/23 21:50 11/06/23 21:50 11/06/23 22:00 Temperature Pulse Rate 82 85 Respiratory Rate 22 18 Blood Pressure 148/77 H Pulse Oximetry 96 96 Oxygen Delivery Method Oxygen Flow Rate 11/06/23 22:00 11/06/23 22:04 11/06/23 22:25 Temperature 98.5 F 97.5 F L Pulse Rate 65 89 Respiratory Rate 18 16 Blood Pressure 138/75 137/85 136/76 Pulse Oximetry 94 93 Oxygen Delivery Method Room Air Oxygen Flow Rate 0 11/06/23 23:40 Temperature Pulse Rate Respiratory Rate Blood Pressure Pulse Oximetry Oxygen Delivery Method Room Air Oxygen Flow Rate Patient admitted to room 213 per stretcher from ER and was able to transfer into bed with 1 assist. Is oriented to self, BD, year, place and reason for coming to ER. Breath sounds CTA with RA sat of 93% and denied SOB. HRR w/telemetry reading of SR w/1st degree AVB + BBB. Denied nausea. BT present and abdomen is soft. Denied dysuria, frequency or urgency with urination. External catheter placed per her request as had IV Lasix in ER. Is able to turn herself in bed. Denied pain. Stage 2 open area noted on coccyx so covered with Allevyn dressing. Scattered abrasions across upper back and shoulders as well as left anterior/posterior thigh. Red, rash like areas under both breasts and in bilateral groins. Currently with IV K+ infusing. Oriented to use of call light and bed controls. Dr. King informed of patient's admission and currently awaiting him to see patient.
[2023-11-07] MEDS: MAGNESIUM SULFATE 4 GM/100 ML PIGGYBACK IV (01:34)
[2023-11-07] MEDS: SODIUM CHLORIDE 0.9% FLUSH 10 ML IV ×2 (01:35→09:34)
[2023-11-07 03:29] LABS: Appearance Urine UA CLEAR; Bilirubin Urine UA NEGATIVE (NEGATIVE); Color Urine UA YELLOW; Glucose Urine UA NEGATIVE (Negative); Ketones Urine UA NEGATIVE (NEGATIVE); Leukocyte Esterase Urine UA 1+ (NEGATIVE); Nitrite Urine UA NEGATIVE (Negative); Occult Blood Urine UA NEGATIVE (Negative); Protein Urine UA NEGATIVE (Negative); Urobilinogen Urine UA 0.2 E.U./dL (0.2)
[2023-11-07 03:43] LABS: RBC Urine None Seen (0-5/HPF); Squamous Epithelial Cell Urine 1-5 /HPF (0-5/HPF); Urine Volume 10mL (spun); WBC Urine 5-10/HPF (0-5/HPF)
[2023-11-07 03:44] LABS: Renal Epithelial Cells Urine 1-5/HPF (0-1/HPF)
[2023-11-07 03:45] VITALS: BP 129/70; PULSE 95; RESP 16; TEMP 36.4; O2SAT 96
[2023-11-07 03:46] LABS: Bacteria Urine Moderate (10-30)
[2023-11-07 03:47] LABS: Culture Indicated Urine Specimen Cultured; Hyaline Casts Urine 0-1/LPF
--- NOTE | 2023-11-07 05:03 | PM.HP.1 ---
History of Present Illness History of Present Illness Date Patient Seen: 11/07/23 Time Patient Seen: 00:35 Chief complaint: SOB/retaining water Narrative: 78 years old female with a past medical history of congestive heart failure with reduced ejection fraction, diabetes, hypertension, coronary artery disease, chronic kidney disease and multiple other medical issues including recent hospitalization for sepsis due to cystitis with acute metabolic encephalopathy needing IV fluids/IV antibiotics now presents to the emergency room for worsening lower extremity edema with increasing shortness of breath even with minimal exertion. Has cough that is usually nonproductive and denies any fever. Denies any Chest pain palpitation dizziness. Try to take extra doses of Lasix at home with no relief. Denies any nausea vomiting or abdominal pain. No bowel or bladder issues. In the ED was noted to be breathing in the mid 20s and subsequent workup showed a potassium of 3.0 with a sodium of 134 and a creatinine of 1.9. WBC is 7.5 hemoglobin of 12.5. Magnesium was 1.6 a troponin of 0.025 and a BNP of 36,400. Chest x-ray is concerning for fluid overload/mild pulmonary edema. Also in the ED, noted to have a run of nonsustained V. tach. Received potassium supplementation in addition to IV Lasix and admitted for further evaluation [facility] Medical History Dementia CAD (coronary artery disease) HFrEF (heart failure with reduced ejection fraction) Fall COVID-19 Osteoarthritis Major depression in partial remission Type 2 diabetes mellitus Plaque psoriasis Myocardial infarction Surgical History History of surgery on right wrist History of bilateral hip replacements History of left knee surgery History of cholecystectomy History of appendectomy Family History Mother Congestive heart failure Brother Congestive heart failure Social History household members: family and children Smoking Status: Never smoker alcohol intake: never substance use type: does not use Meds Home Medications and Allergies Home Medications Medication Instructions Recorded Confirmed Type ascorbic acid (vitamin C) 500 mg 500 mg PO QAM 07/25/21 11/06/23 History chewable tablet [id number] tablet 1 tab PO QAM 07/25/21 11/06/23 History cholecalciferol (vitamin D3) 25 25 mcg PO BID #180 tabs 09/22/21 11/06/23 Rx mcg (1,000 unit) tablet clopidogrel 75 mg tablet 75 mg PO QAM #90 tabs 12/04/21 11/06/23 Rx blood sugar diagnostic (Blood #100 ea 02/21/22 11/06/23 Rx Glucose Test strips) carvedilol 25 mg tablet 25 mg PO BID 02/26/22 11/06/23 History atorvastatin 40 mg tablet 40 mg PO BEDTIME #90 tabs 05/07/22 11/06/23 Rx glycine amino acid 2 g PO DAILY 03/06/23 11/06/23 History pantoprazole 40 mg tablet,delayed 40 mg PO DAILY #90 tabs 09/10/23 11/06/23 Rx release nystatin 100,000 unit/gram topical 1 applic topical BID #15 grams 10/01/23 11/06/23 Rx powder famotidine 40 mg tablet 40 mg PO QPM 10/23/23 11/06/23 History glipizide 5 mg tablet 2.5 mg PO DAILY 10/23/23 11/06/23 History isosorbide mononitrate 60 mg 60 mg PO DAILY 10/23/23 11/06/23 History tablet,extended release 24 hr metolazone 5 mg tablet 2.5 mg PO SEEINSTR 10/23/23 11/06/23 History torsemide 10 mg tablet See Rx Instructions .Route .COMPLEX 10/23/23 11/06/23 History gabapentin 100 mg capsule 200 mg PO PRN PRN Pain (Scale 10/24/23 11/06/23 History Score 1-3) sertraline 50 mg tablet 100 mg (2 x 50 mg) PO DAILY #90 11/05/23 11/06/23 Rx tabs colestipol 1 gram tablet 1 g PO BID 11/06/23 11/06/23 History Allergies Allergy/AdvReac Type Severity Reaction Status Date / Time dimenhydrinate AdvReac Intermediate restless Verified 11/06/23 19:19 [From Dramamine] legs diphenhydramine AdvReac Intermediate restless Verified 11/06/23 19:19 [From Benadryl] legs hydrocodone AdvReac Intermediate Nausea Verified 11/06/23 19:19 Review of Systems Review of Systems Narrative: A 12 point review of system is negative unless otherwise stated in the history of present illness Exam Vital Signs (past 8 hours): - 11/06/23 21:10 11/06/23 21:10 11/06/23 21:20 Temperature Pulse Rate 81 87 Respiratory Rate 22 24 Blood Pressure 139/76 Pulse Oximetry 93 94 Oxygen Delivery Method Oxygen Flow Rate 11/06/23 21:20 11/06/23 21:30 11/06/23 21:30 Temperature Pulse Rate 84 Respiratory Rate 25 H Blood Pressure 154/80 H 154/82 H Pulse Oximetry 95 Oxygen Delivery Method Oxygen Flow Rate 11/06/23 21:40 11/06/23 21:40 11/06/23 21:50 Temperature Pulse Rate 81 82 Respiratory Rate 27 H 22 Blood Pressure 141/86 H Pulse Oximetry 94 96 Oxygen Delivery Method Oxygen Flow Rate 11/06/23 21:50 11/06/23 22:00 11/06/23 22:00 Temperature Pulse Rate 85 Respiratory Rate 18 Blood Pressure 148/77 H 138/75 Pulse Oximetry 96 Oxygen Delivery Method Oxygen Flow Rate 11/06/23 22:04 11/06/23 22:25 11/06/23 23:40 Temperature 98.5 F 97.5 F L Pulse Rate 65 89 Respiratory Rate 18 16 Blood Pressure 137/85 136/76 Pulse Oximetry 94 93 Oxygen Delivery Method Room Air Room Air Oxygen Flow Rate 0 11/07/23 03:45 Temperature 97.6 F Pulse Rate 95 H Respiratory Rate 16 Blood Pressure 129/70 Pulse Oximetry 96 Oxygen Delivery Method Oxygen Flow Rate 1.5 Oxygen Delivery Method Room Air Oxygen Flow Rate 1.5 Narrative Exam Narrative: Patient appears to be no acute distress. Air entry decreased at the bases. 1+ edema noted bilaterally in the lower extremity Objective Labs 11/06/23 19:00 11/06/23 19:00 Labs: Laboratory Results - last 24 hr 11/06/23 11/06/23 11/07/23 19:00 21:25 03:22 WBC 7.5 RBC 4.79 Hgb 12.5 Hct 38.3 MCV 80.0 MCH 26.1 MCHC 32.6 RDW 16.1 H Plt Count 225 Neut % (Auto) 82.7 H Lymph % (Auto) 9.7 L [place] % (Auto) 4.3 Eos % (Auto) 2.2 Baso % (Auto) 1.1 Neut # (Auto) 6200 Lymph # (Auto) 700 L [place] # (Auto) 300 Eos # (Auto) 200 Baso # (Auto) 100 PT 15.8 H INR 1.4 H Sodium 134 L Potassium 3.0 L Chloride 98 Carbon Dioxide 30 BUN 30 H Creatinine 1.90 H Estimated GFR 27 L BUN/Creatinine Ratio 15.8 Glucose 134 H Lactate 1.4 Calcium 8.8 Magnesium 1.6 Total Bilirubin 0.8 AST 26 ALT 15 Alkaline Phosphatase 145 H Troponin I 0.021 0.025 NT-Pro-B Natriuret Pep 88900 H Total Protein 6.7 Albumin 3.5 Globulin 3.2 Albumin/Globulin Ratio 1.1 Urine Color Yellow Urine Appearance Clear Urine pH 7.0 Ur Specific [place] 1.010 Urine Protein Negative Urine Glucose (UA) Negative Urine Ketones Negative Urine Occult Blood Negative Urine Nitrate Negative Urine Bilirubin Negative Urine Urobilinogen 0.2 Ur Leukocyte Esterase 1+ H Urine RBC None seen Urine WBC 5-10/hpf H Ur Squamous Epith Cells 1-5 /hpf Ur Renal Epithelial Cell 1-5/hpf H Urine Bacteria Moderate (10-30) H Hyaline Casts 0-1/lpf Ur Culture Indicated? Specimen cultured Vol Urine Centrifuged 10ml (spun) Assessment & Plan Assessment & Plan narrative: 78 years old female with a past medical history of congestive heart failure with reduced ejection fraction, diabetes, hypertension, coronary artery disease, chronic kidney disease and multiple other medical issues including recent hospitalization for sepsis due to cystitis with acute metabolic encephalopathy needing IV fluids/IV antibiotics now presents to the emergency room for worsening lower extremity edema with increasing shortness of breath even with minimal exertion. Has cough that is usually nonproductive and denies any fever. Denies any Chest pain palpitation dizziness. Try to take extra doses of Lasix at home with no relief. Denies any nausea vomiting or abdominal pain. No bowel or bladder issues. In the ED was noted to be breathing in the mid 20s and subsequent workup showed a potassium of 3.0 with a sodium of 134 and a creatinine of 1.9. WBC is 7.5 hemoglobin of 12.5. Magnesium was 1.6 a troponin of 0.025 and a BNP of 36,400. Chest x-ray is concerning for fluid overload/mild pulmonary edema. Also in the ED, noted to have a run of nonsustained V. tach. Received potassium supplementation in addition to IV Lasix and admitted for further evaluation 1 acute congestive heart failure likely acute and systolic based on the previous history. Further exacerbated by her likely recent infection needing IV fluids and also possibly dietary nonadherence. Did try to take additional dose of Lasix at home with minimal relief and also further complicating the picture is renal function. For now continue with IV Lasix initiated in the emergency room with the fluid restriction/daily weight intake and output measurement. Check an echocardiogram and monitor on the telemetry 2. Ventricular tachycardia nonsustained. Correct potassium and magnesium and tender levels closely while monitoring on the telemetry. Denies any symptoms during the episodes. No chest pain palpitations or dizziness 3 chronic kidney disease. Creatinine appears to be at baseline or slightly better. Previously creatinine was at 2.2 and notes at 1.9. Urine analysis is showing 5-10 WBCs and 1+ leukocyte esterase. Sent the urine for cultures. 4. Diabetes mellitus type 2. On super sugar ACH S with insulin sliding scale. Hold home oral agent due to fluctuating p.o. intake 5. Coronary artery disease. Continue home Coreg Lipitor and Plavix. May resume the home metolazone in addition to Lasix while watching renal function closely 6 DVT prophylaxis will be with renally adjusted dose of Lovenox Patient be admitted under observation status Patient was evaluated with a video communication device. Location of the patient is [facility] in [facility] Time-Based Coding :: [TOTAL MINUTES] spent with patient and on the chart (including review of chart, obtaining history, exam, reviewing outside data, placing orders, documenting exam and treatment plan, and counseling patient) on [DATE].
--- NOTE | 2023-11-07 05:21 | DI.ECHO.S_ITS ---
[facility] : : [id number] : [place] : : [id number] : : Phone: [phone] Echocardiogram Report + + :Name: BERTIN MARIO Study Date: 11/07/2023 Height: 66 in : :[facility] ReadingLocation: Weight: 170 lb : : Gender: Female BSA: 1.9 m2 : :: 1945 Age: 78 yrs BP: 137/87 mmHg: :Reason For Study: CONGESTIVE HEART FAILURE : :Ordering Physician: FRAN, : :REESE Parsons MD Performed By: Diana Mercer : :Referring: REESE PETERS MD : + + Interpretation Summary 1) Normal left ventricular thickness and size with severely reduced systolic function (EF 20-25%). 2) Mildly enlarged right ventricle with mildly to moderately reduced function. 3) There is moderate mitral regurgitation. 4) There is mild-moderate tricuspid regurgitation. 5) The right ventricular systolic pressure is estimated to be at least 38 mmHg based on an estimated right atrial pressure of 8 mm Hg. 6) Compared to the Echo done 01/08/2022, left sided pleural effusion has resolved on this study. Procedure: A two-dimensional transthoracic echocardiogram with color flow and Doppler was performed. The study quality was technically adequate. Comparison is made with the echocardiogram of 01/08/2022. The heart rate ranged between 64-80 bpm during the study. Left Ventricle: The left ventricle is normal in size and wall thickness. The ejection fraction is estimated to be 20-25%. Severe hypokinesis with akinesis of the septum. Right Ventricle: The right ventricle is mildly dilated. Right ventricular systolic function is mild to moderately reduced. Atria: The left atrium is mildly dilated. Right atrial size is normal. There is no Doppler evidence for an interatrial shunt. Mitral Valve: The mitral valve leaflets appear mildly thickened, but open well. There is moderate mitral regurgitation. Aortic Valve: The aortic valve is trileaflet. The aortic valve is mildly calcified. There is no aortic valve stenosis. There is trace aortic regurgitation. Tricuspid Valve: The tricuspid valve is normal. There is mild to moderate tricuspid regurgitation. The right ventricular systolic pressure is estimated to be at least 38 mmHg based on an estimated right atrial pressure of 8 mm Hg. Pulmonic Valve: The pulmonic valve leaflets are thin and pliable; valve motion is normal. There is mild pulmonic regurgitation. Great Vessels: The aortic root is normal size. The dimensions of the ascending aorta are normal. The IVC is of normal diameter and collapses less than 50% with a sniff. This suggests a right atrial pressure of 8 mm Hg. Pericardium/ Pleura There is no pericardial effusion. There is no pleural effusion. MMode/2D Measurements & Calculations LVIDd: 5.6 cm LVOT diam: 2.0 cm LVIDs: 4.9 cm Ao root diam: 2.8 cm FS: 12.9 % asc Aorta Diam: 2.8 cm IVSd: 0.95 cm Ao Arch Diam (Prox Trans): 2.3 cm LVPWd: 0.91 cm LV pires. diameter/BSA (cm/m^2): 3.0 LV sys. diameter/BSA (cm/m^2): 2.6 LA A2 area: 21.6 cm2 RA long axis: 5.6 cm LA A4 area: 20.7 cm2 RA area: 18.3 cm2 LA length (vol): 5.9 cm RA vol: 50.2 ml LA vol: 64.7 ml RA : 26.9 ml/m2 LA vol index: 34.7 ml/m2 IVC diam: 2.0 cm RVD1 (basal): 4.1 cm RVD2 (mid): 3.1 cm TAPSE: 1.3 cm Doppler Measurements & Calculations Ao V2 max: 119.7 cm/sec LVOT Max Jimmy: 41.5 cm/sec Ao V2 mean: 92.4 cm/sec LV V1 max P.69 mmHg Ao max P.7 mmHg LV V1 VTI: 7.1 cm Ao mean P.6 mmHg CATHY(I,D): 0.89 cm2 Ao V2 VTI: 23.9 cm CATHY(V,D): 1.0 cm2 sev ratio: 0.30 CATHY indexed to BSA (cm^2/m^2): 0.48 MV E max jimmy: 102.8 cm/sec TR max jimmy: 277.3 cm/sec MV A max jimmy: 51.1 cm/sec TR max P.8 mmHg MV E/A: 2.0 PA V2 max: 83.4 cm/sec Med Peak E' Jimmy: 2.8 cm/sec PA V2 mean: 56.7 cm/sec E/E' med: 36.8 PA mean P.4 mmHg Lat Peak E' Jimmy: 4.8 cm/sec PA pr(Accel): 36.2 mmHg E/E' lat: 21.5 E/e' average: 29.2 MV dec time: 0.13 sec MR ERO: 0.18 cm2 MR PISA: 2.1 cm2 SV(LVOT): 21.2 ml MR flow rate: 77.9 cm3/sec MR PISA radius: 0.58 cm Reading Physician:01:07 PM
[2023-11-07 06:42] LABS: Add Manual Diff / Slide Review NO; Basophils Absolute Auto 0 /uL (0-100); Basophils Percent Auto 0.7 % (0-2); Eosinophils Absolute Auto 200 /uL (0-450); Eosinophils Percent Auto 2.8 % (2-4); Hemoglobin 12.3 g/dL (12.0-16.0); Lymphocytes Absolute Auto 700 /uL (1100-4500); Lymphocytes Percent Auto 9.8 % (25-40); Mean Corpuscular HGB Conc 32.4 % (30-36); Mean Corpuscular Hemoglobin 26.2 PG (26-34); Monocytes Absolute Auto 500 /uL (0-900); Neutrophils Absolute Auto 5500 /uL (1500-7000); Neutrophils Percent Auto 79.7 % (50-75); Platelet Count 227 X10^3/uL (150-400); Red Blood Cell Count 4.69 X10^6/uL (4.0-5.2); White Blood Cell Count 6.8 X10^3/uL (4.5-11.0)
[2023-11-07 06:57] LABS: Alanine Aminotransferase 14 IU/L (<35); Albumin 3.5 g/dL (3.5-5.0); Albumin Globulin Ratio 1.3 (1.0-2.8); Alkaline Phosphatase 150 U/L (38-126); Aspartate Aminotransferase 26 IU/L (14-36); Bilirubin Total 0.6 mg/dL (0.2-1.3); Blood Urea Nitrogen 31 mg/dL (7-17); Calcium 8.4 mg/dL (8.4-10.2); Carbon Dioxide 27 mmol/L (22-32); Chloride 98 mmol/L (98-107); Estimated Glomerular Filt Rate 24 mL/min (>60); Globulin 2.7 g/dL (1.7-4.1); Glucose 142 mg/dL (80-110); HEMOLYSIS < 15 (0-50); Magnesium 3.7 mg/dL (1.6-2.3); Phosphorous 3.4 mg/dL (2.8-4.1); Potassium 3.7 mmol/L (3.4-5.1); Sodium 133 mmol/L (137-145); Total Protein 6.2 g/dL (6.3-8.2)
[2023-11-07 07:26] LABS: NT-proBNP (BNP-Adult 18+) 35000 pg/mL (<450)
--- NOTE | 2023-11-07 07:28 | PC.WOUNDPHOT ---
Late Entry: Photos take at time of admission by Vidal KUMARI.
--- NOTE | 2023-11-07 07:40 | P.HP_ITS ---
History of Present Illness History of Present Illness Date Patient Seen: 11/07/23 Chief complaint: SOB/retaining water Narrative: From night doctor: 78 years old female with a past medical history of congestive heart failure with reduced ejection fraction, diabetes, hypertension, coronary artery disease, chronic kidney disease and multiple other medical issues including recent hospitalization for sepsis due to cystitis with acute metabolic encephalopathy needing IV fluids/IV antibiotics now presents to the emergency room for worsening lower extremity edema with increasing shortness of breath even with minimal exertion. Has cough that is usually nonproductive and denies any fever. Denies any Chest pain palpitation dizziness. Try to take extra doses of Lasix at home with no relief. Denies any nausea vomiting or abdominal pain. No bowel or bladder issues. In the ED was noted to be breathing in the mid 20s and subsequent workup showed a potassium of 3.0 with a sodium of 134 and a creatinine of 1.9. WBC is 7.5 hemoglobin of 12.5. Magnesium was 1.6 a troponin of 0.025 and a BNP of 36,400. Chest x-ray is concerning for fluid overload/mild pulmonary edema. Also in the ED, noted to have a run of nonsustained V. tach. Received potassium supplementation in addition to IV Lasix and admitted for further evaluation. Additional information: She developed increased shortness a breath yesterday mostly with exertion. In the ED she was felt to have volume overload and was diuresed. This morning she denies any chest pain. She also denies recent leg edema. Her fluid intake has been relatively stable in his mostly restricted. Her salt intake has been stable as well. She does have stage 4 chronic kidney disease in his followed by Nephrology. She was not a for dialysis. She was congestive heart failure with an EF of 20-25%. She last saw her comp field case manager in September. She had a nonsustained run of VT noted in the ED and was mildly hypokalemic. This was replaced. [facility] Medical History Dementia CAD (coronary artery disease) HFrEF (heart failure with reduced ejection fraction) Fall COVID-19 Osteoarthritis Major depression in partial remission Type 2 diabetes mellitus Plaque psoriasis Myocardial infarction Surgical History History of surgery on right wrist History of bilateral hip replacements History of left knee surgery History of cholecystectomy History of appendectomy Family History Mother Congestive heart failure Brother Congestive heart failure Social History household members: family and children Smoking Status: Never smoker alcohol intake: never substance use type: does not use Meds Home Medications and Allergies Home Medications Medication Instructions Recorded Confirmed Type ascorbic acid (vitamin C) 500 mg 500 mg PO QAM 07/25/21 11/06/23 History chewable tablet hegfbybdxfxi-vasfdiso-lkxdad tablet 1 tab PO QAM 07/25/21 11/06/23 History cholecalciferol (vitamin D3) 25 25 mcg PO BID #180 tabs 09/22/21 11/06/23 Rx mcg (1,000 unit) tablet clopidogrel 75 mg tablet 75 mg PO QAM #90 tabs 12/04/21 11/06/23 Rx blood sugar diagnostic (Blood #100 ea 02/21/22 11/06/23 Rx Glucose Test strips) carvedilol 25 mg tablet 25 mg PO BID 02/26/22 11/06/23 History atorvastatin 40 mg tablet 40 mg PO BEDTIME #90 tabs 05/07/22 11/06/23 Rx glycine amino acid 2 g PO DAILY 03/06/23 11/06/23 History pantoprazole 40 mg tablet,delayed 40 mg PO DAILY #90 tabs 09/10/23 11/06/23 Rx release nystatin 100,000 unit/gram topical 1 applic topical BID #15 grams 10/01/23 11/06/23 Rx powder famotidine 40 mg tablet 40 mg PO QPM 10/23/23 11/06/23 History glipizide 5 mg tablet 2.5 mg PO DAILY 10/23/23 11/06/23 History isosorbide mononitrate 60 mg 60 mg PO DAILY 10/23/23 11/06/23 History tablet,extended release 24 hr metolazone 5 mg tablet 2.5 mg PO SEEINSTR 10/23/23 11/06/23 History gabapentin 100 mg capsule 200 mg PO PRN PRN Pain (Scale 10/24/23 11/06/23 History Score 1-3) sertraline 50 mg tablet 100 mg (2 x 50 mg) PO DAILY #90 11/05/23 11/06/23 Rx tabs colestipol 1 gram tablet 1 g PO BID 11/06/23 11/06/23 History torsemide 10 mg tablet 10 mg PO DAILY #90 tabs 11/07/23 Rx Allergies Allergy/AdvReac Type Severity Reaction Status Date / Time dimenhydrinate AdvReac Intermediate restless Verified 11/06/23 19:19 [From Dramamine] legs diphenhydramine AdvReac Intermediate restless Verified 11/06/23 19:19 [From Benadryl] legs hydrocodone AdvReac Intermediate Nausea Verified 11/06/23 19:19 Review of Systems Review of Systems Narrative: All else reviewed and otherwise unremarkable except as noted in the history and physical. Exam Vital Signs (past 8 hours): - 11/07/23 03:45 Temperature 97.6 F Pulse Rate 95 H Respiratory Rate 16 Blood Pressure 129/70 Pulse Oximetry 96 Oxygen Flow Rate 1.5 Oxygen Delivery Method Room Air Oxygen Flow Rate 1.5 Narrative Exam Narrative: NAD, alert and oriented, fluent speech, calm. Normocephalic skull, EOMI, anicteric sclera, symmetric pupils. Oropharynx unremarkable, no droop. Neck supple, midline trachea, no adenopathy. Lungs clear, normal rate and effort. Heart regular, no murmur gallop or rub. Abdomen is soft, non distended and non tender. Extremities are free of edema. Skin is free of rash or lesions. Joints are not swollen or deformed. Judgment appears to be normal. Objective ECG Impression: Sinus rhythm with 1st degree AV block Left axis deviation Possible Anterior infarct , age undetermined Imaging Echo: Radiologist's impression: 1) Normal left ventricular thickness and size with severely reduced systolic function (EF 20-25%). 2) Mildly enlarged right ventricle with mildly to moderately reduced function. 3) There is moderate mitral regurgitation. 4) There is mild-moderate tricuspid regurgitation. 5) The right ventricular systolic pressure is estimated to be at least 38 mmHg based on an estimated right atrial pressure of 8 mm Hg. 6) Compared to the Echo done 01/08/2022, left sided pleural effusion has resolved on this study. Chest x-ray: Radiologist's impression: Cardiomegaly and mild congestion with suggestion of mild pulmonary edema. No definite focal infiltrate. No pleural effusion or pneumothorax. Labs 11/07/23 06:15 11/07/23 06:15 Labs: Laboratory Results - last 24 hr 11/06/23 11/06/23 11/07/23 19:00 21:25 03:22 WBC 7.5 RBC 4.79 Hgb 12.5 Hct 38.3 MCV 80.0 MCH 26.1 MCHC 32.6 RDW 16.1 H Plt Count 225 Neut % (Auto) 82.7 H Lymph % (Auto) 9.7 L [place] % (Auto) 4.3 Eos % (Auto) 2.2 Baso % (Auto) 1.1 Neut # (Auto) 6200 Lymph # (Auto) 700 L [place] # (Auto) 300 Eos # (Auto) 200 Baso # (Auto) 100 PT 15.8 H INR 1.4 H Sodium 134 L Potassium 3.0 L Chloride 98 Carbon Dioxide 30 BUN 30 H Creatinine 1.90 H Estimated GFR 27 L BUN/Creatinine Ratio 15.8 Glucose 134 H Lactate 1.4 Calcium 8.8 Phosphorus Magnesium 1.6 Total Bilirubin 0.8 AST 26 ALT 15 Alkaline Phosphatase 145 H Troponin I 0.021 0.025 NT-Pro-B Natriuret Pep 71194 H Total Protein 6.7 Albumin 3.5 Globulin 3.2 Albumin/Globulin Ratio 1.1 Urine Color Yellow Urine Appearance Clear Urine pH 7.0 Ur Specific Wallace 1.010 Urine Protein Negative Urine Glucose (UA) Negative Urine Ketones Negative Urine Occult Blood Negative Urine Nitrate Negative Urine Bilirubin Negative Urine Urobilinogen 0.2 Ur Leukocyte Esterase 1+ H Urine RBC None seen Urine WBC 5-10/hpf H Ur Squamous Epith Cells 1-5 /hpf Ur Renal Epithelial Cell 1-5/hpf H Urine Bacteria Moderate (10-30) H Hyaline Casts 0-1/lpf Ur Culture Indicated? Specimen cultured Vol Urine Centrifuged 10ml (spun) 11/07/23 06:15 WBC 6.8 RBC 4.69 Hgb 12.3 Hct 38.0 MCV 81.0 MCH 26.2 MCHC 32.4 RDW 16.0 H Plt Count 227 Neut % (Auto) 79.7 H Lymph % (Auto) 9.8 L [place] % (Auto) 7.0 Eos % (Auto) 2.8 Baso % (Auto) 0.7 Neut # (Auto) 5500 Lymph # (Auto) 700 L [place] # (Auto) 500 Eos # (Auto) 200 Baso # (Auto) 0 PT INR Sodium 133 L Potassium 3.7 Chloride 98 Carbon Dioxide 27 BUN 31 H Creatinine 2.06 H Estimated GFR 24 L BUN/Creatinine Ratio 15.0 Glucose 142 H Lactate Calcium 8.4 Phosphorus 3.4 Magnesium 3.7 H Total Bilirubin 0.6 AST 26 ALT 14 Alkaline Phosphatase 150 H Troponin I NT-Pro-B Natriuret Pep 69377 H Total Protein 6.2 L Albumin 3.5 Globulin 2.7 Albumin/Globulin Ratio 1.3 Urine Color Urine Appearance Urine pH Ur Specific Wallace Urine Protein Urine Glucose (UA) Urine Ketones Urine Occult Blood Urine Nitrate Urine Bilirubin Urine Urobilinogen Ur Leukocyte Esterase Urine RBC Urine WBC Ur Squamous Epith Cells Ur Renal Epithelial Cell Urine Bacteria Hyaline Casts Ur Culture Indicated? Vol Urine Centrifuged Assessment & Plan Assessment & Plan narrative: 1. Acute congestive heart failure likely acute and systolic, present on admission and active. - Further exacerbated by her likely recent infection needing IV fluids and also possibly dietary nonadherence. Did try to take additional dose of Lasix at home with minimal relief and also further complicating the picture is renal function. For now continue with IV Lasix initiated in the emergency room with the fluid restriction/daily weight intake and output measurement. Check an echocardiogram and monitor on the telemetry 2. Ventricular tachycardia (non-sustained). Present on admission and active. -Correct potassium and magnesium and tender levels closely while monitoring on the telemetry. Denies any symptoms during the episodes. No chest pain palpitations or dizziness 3. Chronic kidney disease stage 3. Present on admission and active. -Creatinine appears to be at baseline or slightly better. Previously creatinine was at 2.2 and notes at 1.9. Urine analysis is showing 5-10 WBCs and 1+ leukocyte esterase. Sent the urine for cultures. 4. Diabetes mellitus type 2. Present on admission and active. -On super sugar ACH S with insulin sliding scale. Hold home oral agent due to fluctuating p.o. intake 5. Coronary artery disease. Present on admission and active. -Continue home Coreg Lipitor and Plavix. May resume the home metolazone in addition to Lasix while watching renal function closely DVT prophylaxis: SQH. FULL CODE Admitted to observation status. Anticipate 1 night of hospital services required. PLAN: -she will be diuresed. -We will monitor electrolytes. Time-Based Coding :: 30 min spent with patient and on the chart (including review of chart, obtaining history, exam, reviewing outside data, placing orders, documenting exam and treatment plan, and counseling patient) on 11/06. Quality MIPS - Admit I confirm the patient?s Advance Care Plan is present, Code status is documented, Surrogate decision maker is in patient?s record [If Yes, STOP here]: Yes MIPS - Meds 'Current medications' to include all prescriptions, [id number] products, herbals, cannabis/cannabidiol products, and vitamin/mineral/dietary (nutritional) supplements. I have utilized all available resources to obtain, update, or review the patient?s current medications. [If Yes, STOP here]: Yes
[2023-11-07 08:00] VITALS: BP 137/87; PULSE 91; RESP 16; O2SAT 94
[2023-11-07 09:32] VITALS: BP 137/87
[2023-11-07] MEDS: CLOPIDOGREL 75 MG TABLET PO (09:32)
[2023-11-07] MEDS: carvediloL 12.5 MG TABLET 25 MG PO (09:32)
[2023-11-07] MEDS: CHOLECALCIFEROL (VITAMIN D3) 1,000 UNIT TABLET 1000 UNIT PO (09:32)
[2023-11-07] MEDS: ASCORBIC ACID 500 MG TABLET PO (09:32)
[2023-11-07] MEDS: SERTRALINE 50 MG TABLET 100 MG PO (09:32)
[2023-11-07] MEDS: NYSTATIN POWDER 15GM 1 APPLIC TOP (09:33)
[2023-11-07] MEDS: ISOSORBIDE MONONITRATE ER 30 MG TABLET 60 MG PO (09:33)
[2023-11-07] MEDS: PANTOPRAZOLE DR 40 MG TABLET PO (09:33)
[2023-11-07] MEDS: VIT C/E/ZN/COPPR/LUTEIN/ZEAXAN CAPSULE 1 CAP PO (09:34)
[2023-11-07] MEDS: FUROSEMIDE 40 MG/4 ML VIAL IV (09:34)
[2023-11-07 11:27] VITALS: PULSE 72; RESP 20; O2SAT 94
[2023-11-07 12:00] VITALS: BP 127/69; PULSE 73; RESP 16; O2SAT 93
--- NOTE | 2023-11-07 13:04 | CM.DANOTE ---
Patient is a 78 yo female who was admitted OBS Status on 11/06/23 for SOB. Per MD, pt with hx of CHF, memory issues, and admitted for VTACH and CHF exac. Pt with some memory issues and possible dementia dx. PCP: Magalys Deluca Payer: [facility] [facility] [place] Patient Readmit from recent discharge to home on 10/23/23 for cystitis. Reviewed chart, met with patient to introduce self and role. Patient reports that she still lives with supportive daughter, MIKEY, grand daughter and cousin in [place]. Her family works during the day and available to assist in the evening and on weekends. Patient does not drive and states she uses a walker at home for ambulation and denies any hx of falls. Pt states she feels steady when on her feet and currently denies need for PT eval. Patient denies hx of HH or SNF; anticipates she will return home with supportive family upon discharge. No barriers identified at this time to patient's safe discharge home w/family to assist; close outpatient f/u recommended. CM team will plan to follow clinical course closely in case any DC needs or concerns arise. SW left Dtr voicemail to r/o possible HH needs as pt a readmit. CRISTI Zavala Discharge Planning/Care Management CM Discharge Assessment Start: 11/07/23 13:01 Freq: Status: Active Protocol: Document 11/07/23 13:01 (Rec: 11/07/23 13:04 [id number]) Discharge Planning Assessment Assigned [employer]er CRISTI Page DPOA/Assigned Designee Name dtkim Mago Contact Information [phone] Advance Directives? No Advance Directives on File Yes History Provided By Patient,Family Member,Medical Record Has Patient been admitted in last 30 Yes days? Comment Discharged home on 10/23/23 after cystitis Prior Living Arrangements House Household Members family,children Type of transporation used prior to Relies on Others admit Independent with ADL's No: family assists Is patient alert and oriented? No: some memory issues Needs Assistance With Meal Prep,Managing Medications ,Home Chores / Shopping Caregiver for Another No DME Already Rented / Owned FWW / Walker Comment Patient uses devices: Cane, FWW or Wheel chair as needed Patient/Family Preference Home with Home Health Comment Follow to r/o HH and possible PT eval Barriers to Discharge No Comment Patient resides with supportive family Discharge Plan Home Community Services Physical Therapy Transportation Arrangement Daughter POV, r/o HH Additional Comment Will see how patient does with P.T. Whiteboard Updated in Patient Room with Yes name and ext. # of [employer]er Review Status In Process Please Provide Date Initial DC 11/07/23 Assessment Was Performed Next Review Type Continued Stay Review
--- NOTE | 2023-11-07 16:20 | PM.DS.1 ---
History of Present Illness History of Present Illness Chief complaint: SOB/retaining water Narrative: From night doctor: 78 years old female with a past medical history of congestive heart failure with reduced ejection fraction, diabetes, hypertension, coronary artery disease, chronic kidney disease and multiple other medical issues including recent hospitalization for sepsis due to cystitis with acute metabolic encephalopathy needing IV fluids/IV antibiotics now presents to the emergency room for worsening lower extremity edema with increasing shortness of breath even with minimal exertion. Has cough that is usually nonproductive and denies any fever. Denies any Chest pain palpitation dizziness. Try to take extra doses of Lasix at home with no relief. Denies any nausea vomiting or abdominal pain. No bowel or bladder issues. In the ED was noted to be breathing in the mid 20s and subsequent workup showed a potassium of 3.0 with a sodium of 134 and a creatinine of 1.9. WBC is 7.5 hemoglobin of 12.5. Magnesium was 1.6 a troponin of 0.025 and a BNP of 36,400. Chest x-ray is concerning for fluid overload/mild pulmonary edema. Also in the ED, noted to have a run of nonsustained V. tach. Received potassium supplementation in addition to IV Lasix and admitted for further evaluation. Additional information: She developed increased shortness a breath yesterday mostly with exertion. In the ED she was felt to have volume overload and was diuresed. This morning she denies any chest pain. She also denies recent leg edema. Her fluid intake has been relatively stable in his mostly restricted. Her salt intake has been stable as well. She does have stage 4 chronic kidney disease in his followed by Nephrology. She was not a for dialysis. She was congestive heart failure with an EF of 20-25%. She last saw her venetian blind tape cutter in September. She had a nonsustained run of VT noted in the ED and was mildly hypokalemic. This was replaced. Discharge Providers Provider Date of admission: 11/06/23 21:46 Discharge Date: 11/07/23 Primary care physician: Magalys Deluca DO Consults: NONE Discharge provider: Dereje Kang MD Summary Hospital Course Discharge Diagnosis: 1. Acute congestive heart failure likely acute and systolic, present on admission and active. - Further exacerbated by her likely recent infection needing IV fluids and also possibly dietary nonadherence. Did try to take additional dose of Lasix at home with minimal relief and also further complicating the picture is renal function. For now continue with IV Lasix initiated in the emergency room with the fluid restriction/daily weight intake and output measurement. Check an echocardiogram and monitor on the telemetry 2. Ventricular tachycardia (non-sustained). Present on admission and active. -Correct potassium and magnesium and tender levels closely while monitoring on the telemetry. Denies any symptoms during the episodes. No chest pain palpitations or dizziness 3. Chronic kidney disease stage 3. Present on admission and active. -Creatinine appears to be at baseline or slightly better. Previously creatinine was at 2.2 and notes at 1.9. Urine analysis is showing 5-10 WBCs and 1+ leukocyte esterase. Sent the urine for cultures. 4. Diabetes mellitus type 2. Present on admission and active. -On super sugar ACH S with insulin sliding scale. Hold home oral agent due to fluctuating p.o. intake 5. Coronary artery disease. Present on admission and active. -Continue home Coreg Lipitor and Plavix. May resume the home metolazone in addition to Lasix while watching renal function closely Hospital Course: She was admitted and diuresed and improved. She was back to baseline in the afternoon. We had a long meeting with her family members in her talking about her prognosis and how it relates to her progression of chronic stage 4 kidney disease as well as severe systolic dysfunction. In addition she now has ventricular arrhythmias despite being on a beta blockade. In reviewing her echoes, her LVEF is not improved over the last several years. She was not a dialysis candidate with her cardiac function. She was followed by Cardiology and Nephrology at [facility]. The patient remains full code. I did discuss the natural course of both heart failure and renal failure and how this will get worse over time and requiring increased doses of diuretics and some point we will be refractory to medical treatment. At that point she would very likely benefit from hospice. Status at Discharge Cognitive/behavioral status at discharge: oriented Functional status at discharge: uses cane/walker Overall status at discharge: patient is back to baseline Time Spent with Patient Time spent: Greater than 30 minutes Exam Vital Signs (past 8 hours): - 11/07/23 09:32 11/07/23 11:27 11/07/23 12:00 Pulse Rate 72 73 Respiratory Rate 20 16 Blood Pressure 137/87 127/69 Pulse Oximetry 94 93 Oxygen Delivery Method Room Air Oxygen Flow Rate 0 Fraction of Inspired Oxygen 21 Fraction of Inspired Oxygen 21 SaO2/FiO2 Ratio 447 Oxygen Delivery Method Room Air Oxygen Flow Rate 0 Narrative Exam Narrative: NAD, alert and oriented. Fluent speech. Lungs are clear, normal rate and effort. Heart is regular, no murmur gallop or rub. Abdomen is soft, non distended. Extremities are free of edema. Objective Labs 11/07/23 06:15 11/07/23 06:15 Labs: Laboratory Results - last 24 hr 11/06/23 11/06/23 11/07/23 19:00 21:25 03:22 WBC 7.5 RBC 4.79 Hgb 12.5 Hct 38.3 MCV 80.0 MCH 26.1 MCHC 32.6 RDW 16.1 H Plt Count 225 Neut % (Auto) 82.7 H Lymph % (Auto) 9.7 L [place] % (Auto) 4.3 Eos % (Auto) 2.2 Baso % (Auto) 1.1 Neut # (Auto) 6200 Lymph # (Auto) 700 L [place] # (Auto) 300 Eos # (Auto) 200 Baso # (Auto) 100 PT 15.8 H INR 1.4 H Sodium 134 L Potassium 3.0 L Chloride 98 Carbon Dioxide 30 BUN 30 H Creatinine 1.90 H Estimated GFR 27 L BUN/Creatinine Ratio 15.8 Glucose 134 H Lactate 1.4 Calcium 8.8 Phosphorus Magnesium 1.6 Total Bilirubin 0.8 AST 26 ALT 15 Alkaline Phosphatase 145 H Troponin I 0.021 0.025 NT-Pro-B Natriuret Pep 58050 H Total Protein 6.7 Albumin 3.5 Globulin 3.2 Albumin/Globulin Ratio 1.1 Urine Color Yellow Urine Appearance Clear Urine pH 7.0 Ur Specific [place] 1.010 Urine Protein Negative Urine Glucose (UA) Negative Urine Ketones Negative Urine Occult Blood Negative Urine Nitrate Negative Urine Bilirubin Negative Urine Urobilinogen 0.2 Ur Leukocyte Esterase 1+ H Urine RBC None seen Urine WBC 5-10/hpf H Ur Squamous Epith Cells 1-5 /hpf Ur Renal Epithelial Cell 1-5/hpf H Urine Bacteria Moderate (10-30) H Hyaline Casts 0-1/lpf Ur Culture Indicated? Specimen cultured Vol Urine Centrifuged 10ml (spun) 11/07/23 06:15 WBC 6.8 RBC 4.69 Hgb 12.3 Hct 38.0 MCV 81.0 MCH 26.2 MCHC 32.4 RDW 16.0 H Plt Count 227 Neut % (Auto) 79.7 H Lymph % (Auto) 9.8 L [place] % (Auto) 7.0 Eos % (Auto) 2.8 Baso % (Auto) 0.7 Neut # (Auto) 5500 Lymph # (Auto) 700 L [place] # (Auto) 500 Eos # (Auto) 200 Baso # (Auto) 0 PT INR Sodium 133 L Potassium 3.7 Chloride 98 Carbon Dioxide 27 BUN 31 H Creatinine 2.06 H Estimated GFR 24 L BUN/Creatinine Ratio 15.0 Glucose 142 H Lactate Calcium 8.4 Phosphorus 3.4 Magnesium 3.7 H Total Bilirubin 0.6 AST 26 ALT 14 Alkaline Phosphatase 150 H Troponin I NT-Pro-B Natriuret Pep 47732 H Total Protein 6.2 L Albumin 3.5 Globulin 2.7 Albumin/Globulin Ratio 1.3 Urine Color Urine Appearance Urine pH Ur Specific [place] Urine Protein Urine Glucose (UA) Urine Ketones Urine Occult Blood Urine Nitrate Urine Bilirubin Urine Urobilinogen Ur Leukocyte Esterase Urine RBC Urine WBC Ur Squamous Epith Cells Ur Renal Epithelial Cell Urine Bacteria Hyaline Casts Ur Culture Indicated? Vol Urine Centrifuged [facility] Medical History Dementia CAD (coronary artery disease) HFrEF (heart failure with reduced ejection fraction) Fall COVID-19 Osteoarthritis Major depression in partial remission Type 2 diabetes mellitus Plaque psoriasis Myocardial infarction Surgical History History of surgery on right wrist History of bilateral hip replacements History of left knee surgery History of cholecystectomy History of appendectomy Family History Mother Congestive heart failure Brother Congestive heart failure Social History household members: family and children Smoking Status: Never smoker alcohol intake: never substance use type: does not use Discharge Assessment & Plan Assessment and Plan Assessment: 1. Acute congestive heart failure likely acute and systolic, present on admission and improved. 2. Ventricular tachycardia (non-sustained). Present on admission and resolved. -Correct potassium and magnesium and tender levels closely while monitoring on the telemetry. Denies any symptoms during the episodes. No chest pain palpitations or dizziness 3. Hypokalemia and hypomagnesemia, present on admission and improved. 4. Chronic kidney disease stage 4. Present on admission and active. -Creatinine appears to be at baseline or slightly better. Previously creatinine was at 2.2 and notes at 1.9. Urine analysis is showing 5-10 WBCs and 1+ leukocyte esterase. Sent the urine for cultures. 5. Diabetes mellitus type 2. Present on admission and active. -On super sugar ACH S with insulin sliding scale. Hold home oral agent due to fluctuating p.o. intake 6. Coronary artery disease. Present on admission and active. -Continue home Coreg Lipitor and Plavix. May resume the home metolazone in addition to Lasix while watching renal function closely Plan of Treatment: Discharge home on higher dose of diuretics. She will take torsemide 1 tab b.i.d. 1 day alternating with 2 tabs in the morning and went to in the evening on the next day. These are torsemide 10 mg tabs. She will continue taking her metolazone Saturday and Saturday. An electronic message was sent to her hogshead packer and her venetian blind tape cutter alerting them to this admission and the highlights. Discharge Plan Discharge Plan Patient Disposition: Home Provider Discharge Comment: Stable for discharge home on an increased dose of diuretic. Discharge orders & Medications Prescriptions: New torsemide 10 mg tablet 10 mg PO DAILY Qty: 90 1RF Rx Instructions: 1 tab BID one day alternate with 2 tabs in AM and 1 PM the next day. Continued cholecalciferol (vitamin D3) 25 mcg (1,000 unit) tablet 25 mcg PO BID Qty: 180 3RF clopidogrel 75 mg tablet 75 mg PO QAM Qty: 90 1RF atorvastatin 40 mg tablet 40 mg PO BEDTIME Qty: 90 1RF pantoprazole 40 mg tablet,delayed release (DR/EC) 40 mg PO DAILY Qty: 90 0RF sertraline 50 mg tablet 100 mg PO DAILY Qty: 90 0RF glycine amino acid 2 g PO DAILY nystatin 100,000 unit/gram powder 1 applic topical BID Qty: 15 0RF (DME) Blood Glucose Test Strip See Rx Instructions .ROUTE .MEDSUPPLY Qty: 100 2RF Rx Instructions: Use to test blood glucose ONCE daily. carvedilol 25 mg tablet 25 mg PO BID Rx Instructions: must administer with a meal/food ascorbic acid (vitamin C) 500 mg Tablet,Chewable 500 mg PO QAM [id number] Tablet 1 tab PO QAM isosorbide mononitrate 60 mg tablet extended release 24 hr 60 mg PO DAILY famotidine 40 mg tablet 40 mg PO QPM glipizide 5 mg tablet 2.5 mg PO DAILY metolazone 5 mg Tablet 2.5 mg PO SEEINSTR Rx Instructions: Saturday and Saturday AM gabapentin 100 mg capsule 200 mg PO PRN PRN (Reason: Pain (Scale Score 1-3)) colestipol 1 gram Tablet 1 g PO BID Discontinued torsemide 10 mg tablet See Rx Instructions .ROUTE .COMPLEX Rx Instructions: take two tablets by mouth in the morning and one tablet by mouth in the evening. Medication counseling provided by Pharmacist: No Follow up/Referrals: Magalys Deluca DO [Primary Care Provider] - Discharge Health Status Multidrug resistant organism: No MDRO Diet/Activity/Treatments Diet: Low-sodium Visit Report/Discharge Packet Instructions: DI for Heart Failure Stand Alone Forms: Patient Portal/API Discharge Data Primary Care Provider: Magalys Deluca Attending Provider: Wero King Admit Date/Time: 11/06/23 21:46
--- NOTE | 2023-11-08 07:35 | CM.DPC ---
DCP Discharge Home: Per MD, pt was determined to be medically stable last night 11/07/23 and pt wanted to d/c home with family and discharge completed after SW shift and family provided transport home and no identified barriers to discharge. Pt to have close follow up with her PCP. CRISTI Zavala
--- NOTE | 2023-11-14 17:25 | PC.NURSE ---
Late entry: Furosemide infusion initiated at 2130 complete at 2201.
== END 2023-11-07 17:02 | disposition home or self-care (01) ==
LOC: ED 21:42 → AC 21:47
PROVIDERS: Admitting Provider Internal Medicine; Emergency Provider Emergency Medicine; Family Provider Family Medicine; PCP Family Medicine; Referring Provider Emergency Medicine; Visit Provider Internal Medicine
DX: I13.0 Hypertensive heart and chronic kidney disease with heart failure and stage 1 through stage 4 chronic kidney disease, or unspecified chronic kidney disease (principal); I50.21 Acute systolic (congestive) heart failure; N18.30 Chronic kidney disease, stage 3 unspecified; I25.10 Atherosclerotic heart disease of native coronary artery without angina pectoris; I47.20 Ventricular tachycardia, unspecified; E11.22 Type 2 diabetes mellitus with diabetic chronic kidney disease; Z79.84 Long term (current) use of oral hypoglycemic drugs
CPT/HCPCS: 36415; 71045; 80053; 81001; 82962; 83605; 83735; 83880; 84100; 84484; 85025; 85610; 87086; 93005; 93306; 94762; 96361; 96365; 96375; 99284; G0378; J1940; J2405; J3475

== ENCOUNTER → 2023-11-26 16:34 | Outpatient (CLI) | payer MEDICARE, OTHER, SELFPAY ==
[2023-11-06 22:30] VITALS: BMI 27.4
[2023-11-26 17:20] LABS: Appearance Urine UA CLOUDY; Bilirubin Urine UA NEGATIVE (NEGATIVE); Color Urine UA YELLOW; Glucose Urine UA NEGATIVE (Negative); Ketones Urine UA NEGATIVE (NEGATIVE); Leukocyte Esterase Urine UA 3+ (NEGATIVE); Nitrite Urine UA POSITIVE (Negative); Occult Blood Urine UA TRACE-INTACT (Negative); Protein Urine UA 1+ (Negative); Urobilinogen Urine UA 0.2 E.U./dL (0.2)
[2023-11-26 17:35] LABS: Bacteria Urine Many (>30); Culture Indicated Urine Specimen Cultured; RBC Urine 1-5/HPF (0-5/HPF); Squamous Epithelial Cell Urine 0-1 /HPF (0-5/HPF); Urine Volume 10mL (spun); WBC Urine 5-10/HPF (0-5/HPF)
== END ==
PROVIDERS: Family Provider Family Medicine; PCP Family Medicine; Referring Provider Family Medicine; Visit Provider Family Medicine
DX: R30.0 Dysuria (principal)
CPT/HCPCS: 81001; 87077; 87086